=== PATIENT | female | born 1995 | race Caucasian/White ===

== ENCOUNTER 2023-04-09 16:03 | Outpatient (OUT) | payer OTHER, SELFPAY ==
[2023-04-09 17:27] LABS: HCG Quantitative <1 mIU/mL
== END 2023-04-09 16:04 | disposition home or self-care (01) ==
PROVIDERS: Visit Provider Obstetrics & Gynecology
DX: N92.6 Irregular menstruation, unspecified (principal)
CPT/HCPCS: 36415; 84702

== ENCOUNTER 2023-04-11 15:44 | Outpatient (OUT) | payer OTHER, SELFPAY ==
[2023-04-11 16:43] LABS: HCG Quantitative <1 mIU/mL
== END 2023-04-11 15:45 | disposition home or self-care (01) ==
LOC: LAB 15:45
PROVIDERS: Visit Provider Obstetrics & Gynecology
DX: N92.6 Irregular menstruation, unspecified (principal)
CPT/HCPCS: 36415; 84702

== ENCOUNTER 2023-06-22 15:40 | Outpatient (OUT) | payer OTHER, SELFPAY ==
[2023-06-22 16:36] LABS: HCG Quantitative 10 mIU/mL
== END 2023-06-22 15:41 | disposition home or self-care (01) ==
LOC: LAB 15:43
PROVIDERS: Visit Provider Obstetrics & Gynecology
DX: N92.6 Irregular menstruation, unspecified (principal)
CPT/HCPCS: 36415; 84702

== ENCOUNTER 2023-06-25 15:40 | Outpatient (OUT) | payer OTHER, SELFPAY ==
[2023-06-25 16:51] LABS: HCG Quantitative 37 mIU/mL
== END 2023-06-25 15:41 | disposition home or self-care (01) ==
PROVIDERS: Visit Provider Obstetrics & Gynecology
DX: N92.6 Irregular menstruation, unspecified (principal)
CPT/HCPCS: 36415; 84702

== ENCOUNTER 2023-06-27 14:55 | Outpatient (OUT) | payer OTHER, SELFPAY ==
[2023-06-27 15:33] LABS: HCG Quantitative 63 mIU/mL
== END 2023-06-27 14:56 | disposition home or self-care (01) ==
PROVIDERS: Visit Provider Obstetrics & Gynecology
DX: N92.6 Irregular menstruation, unspecified (principal)
CPT/HCPCS: 36415; 84702

== ENCOUNTER 2023-06-29 10:36 | Outpatient (OUT) | payer OTHER, SELFPAY ==
[2023-06-29 11:48] LABS: HCG Quantitative 136 mIU/mL
== END 2023-06-29 10:37 | disposition home or self-care (01) ==
LOC: LAB 10:38
PROVIDERS: Visit Provider Obstetrics & Gynecology
DX: N92.6 Irregular menstruation, unspecified (principal)
CPT/HCPCS: 36415; 84702

== ENCOUNTER 2023-07-14 14:42 | Emergency (ER) | payer OTHER, SELFPAY ==
[2023-07-14 14:48] VITALS: BP 152/87; PULSE 90; RESP 18; TEMP 36.8; O2SAT 98; BMI 46.8
--- NOTE | 2023-07-14 15:02 | US_ITS ---
The [address] [address] Patient Name: KAREEN IVAN MRN: [id number] date: 1995 Sex: F Assigned Patient Location: ER Current Patient Location: Accession/Order Number: [id number] Exam Date: 07/14/2023 15:30 Report Date: 07/14/2023 16:50 At the request of: ARTURO HERRERA Procedure: US OB transvaginal PROCEDURE: US OB transvaginal, 07/14/2023 3:30 PM EST CLINICAL INDICATIONS: Encounter for first trimester , vaginal bleeding for 2 weeks 2 para 1 LMP 05/27/2023 Expected gestational age: 6 weeks 6 days Expected KASSIDY: 03/02/2024 COMPARISON: None TECHNIQUE: Transvaginal first trimester obstetric sonogram, grayscale color and spectral evaluation. FINDINGS: Uterus: 0.2 x 0.3 x 0.3 cm anechoic region is identified within the lower uterine segment no yolk sac and embryonic pole or cardiac activity could be documented. Endotracheal echo complex 0.9 cm. No focal uterine abnormality demonstrated. Maternal right ovary: 7.7 x 4.8 x 4.8 cm, volume 93 mL. Anechoic cyst measures 4.5 x 4.6 x 4.8 cm. Complex 2.3 x 2.9 x 3.1 cm right adnexal cystic mass seen with low level echoes, mild increased reticular pattern. Maternal left ovary: 3.2 x 3.2 x 2.8 cm, volume 10 mL. 1.7 cm anechoic cyst seen. DUPLEX PELVIC VASCULATURE: There is intact flow within the right ovary by color-flow assessment. Arterial spectral tracing is identified from within. Left adnexa vascularity not assessed. US/US OB transvaginal IMPRESSION: 1. uncertain location. Convincing intrauterine or extrauterine is not documented. Differential considerations include too early to confirm by sonography, complete spontaneous , ectopic . Correlation with serial quantitative beta-hCG and follow-up sonography recommended. 2. There is a nonspecific 0.3 cm anechoic finding within the lower uterine segment. Nabothian paracervical cyst less likely early low position gestational sac could both present this pattern. Attention on follow-up recommended in this regard. 3. 4.8 cm anechoic maternal right ovarian cyst. Benign cyst favored. 4. Complex 3.1 cm maternal right adnexal mass. Subacute hemorrhagic cyst, endometrioma, complex corpus luteal cyst could all present this pattern. Attention on follow-up recommended in this regard. 5. No sonographic sign of maternal right adnexal torsion. Left ovary vascularity is not assessed. Electronically authenticated by: JAMES DOBBS Date: 07/14/2023 16:50
--- NOTE | 2023-07-14 15:03 | ED_ITS ---
HPI - Female Genitourinary General Chief complaint: Vaginal Bleeding Stated complaint: PREGENT UNDER 20 WEEKS Time Seen by Provider: 07/14/23 15:01 Source: patient Mode of arrival: walk-in Limitations: no limitations History of Present Illness HPI Narrative: patient is a 27-year-old female who presents to the emergency department at approximate seven weeks of . Last menstrual period was May 23. She states for two weeks she has had spotting and mild abdominal cramping. She states the last day, her symptoms have gotten worse. She is not passing clots. She has had no fevers, chills, nausea, vomiting. No urinary symptoms. She denies any issues with her previous . She had an outpatient quantitative hCG level drawn on 06/29. She has not had any ultrasound imaging. She reports cramp ing throughout the pelvis. Related Data Previous Rx's Medication Instructions Recorded naproxen 500 mg tablet 500 mg PO Q12H PRN pain #10 tabs 07/14/23 Allergies Allergy/AdvReac Type Severity Reaction Status Date / Time No Known Drug Allergies Allergy Verified 07/14/23 14:53 Review of Systems ROS Constitutional Denies: fever or chills Cardiovascular Denies: chest pain Respiratory Denies: shortness of breath or cough Gastrointestinal Reports: abdominal pain; Denies: nausea, vomiting or diarrhea Genitourinary Denies: painful urination Musculoskeletal Denies: back pain Integumentary/Breast Denies: rash Neurological Denies: headache Exam Narrative Exam Narrative: Gen.: Awake, alert, in no distress Head: Normocephalic, atraumatic ENT: Moist mucous membranes Respiratory: No respiratory distress Gastrointestinal: Abdomen is soft, obese, nontender to palpation. No pain out of proportion on exam Extremities: Moves extremities equally Psych: Normal mood and affect Neuro: No focal neuro deficit Skin: Warm, dry, intact Constitutional Vital Signs, click to edit/add: Last Vital Signs Temp 98.2 F 07/14/23 14:48 Pulse 83 07/14/23 16:09 Resp 18 07/14/23 16:09 BP 142/76 H 07/14/23 16:09 Pulse Ox 100 07/14/23 16:09 O2 Del Method Room Air 07/14/23 14:48 Course Vital Signs Vital signs: Vital Signs Temperature 98.2 F 07/14/23 14:48 Pulse Rate 90 07/14/23 14:48 Respiratory Rate 18 07/14/23 14:48 Blood Pressure 152/87 H 07/14/23 14:48 Pulse Oximetry 98 07/14/23 14:48 Oxygen Delivery Method Room Air 07/14/23 14:48 Temperature 98.2 F 07/14/23 14:48 Pulse Rate 83 07/14/23 16:09 Respiratory Rate 18 07/14/23 16:09 Blood Pressure 142/76 H 07/14/23 16:09 Pulse Oximetry 100 07/14/23 16:09 Oxygen Delivery Method Room Air 07/14/23 14:48 MDM - Female Genitourinary MDM Narrative Medical decision making narrative: patient with a positive blood type, quantitative hCG level has decreased from 136 on 06/29/23 to 116 today. Urine specimen is contaminated and we will wait for culture. Ultrasound shows a small gestational sac in the lower uterus, there is a large 4.8 cm ovarian cyst in the right ovary with good blood flow to the ovary. No evidence of torsion or ectopic at this time. patient was counseled that her quantitative hCG levels are concerning for miscarriage and she should follow closely with her BIG MACHINE CONSULTANT. Return to the Emergency Room if symptoms change or worsen. NSAIDs given for comfort in light of miscarriage. Medical Records Attestation: I reviewed the patient's medical records. Lab Data Attestation: I reviewed the patient's lab results. Labs: Lab Results 07/14/23 07/14/23 Range/Units 15:10 15:15 WBC 13.3 H (4.0-11.0) 10^3/uL RBC 4.61 (4.20-5.40) 10^6/uL Hgb 12.6 (12.0-16.0) g/dL Hct 39.7 (36.0-48.0) % MCV 86.1 (81.0-99.0) fL MCH 27.3 (26.7-34.0) pg MCHC 31.7 (29.9-35.2) g/dL RDW 14.5 (11.0-15.0) % Plt Count 352 (150-450) 10^3/uL MPV 9.1 L (9.5-13.5) fL Neut % (Auto) 73.2 (43.0-75.0) % Lymph % (Auto) 19.3 L (20.5-60.0) % [place] % (Auto) 5.8 (1.7-12.0) % Eos % (Auto) 1.0 (0.9-7.0) % Baso % (Auto) 0.3 (0.2-2.0) % Neut # (Auto) 9.7 H (1.4-6.5) 10^3/uL Lymph # (Auto) 2.6 (1.2-3.8) 10^3/uL [place] # (Auto) 0.8 (0.3-0.8) 10^3/uL Eos # (Auto) 0.1 (0.0-0.7) 10^3/uL Baso # (Auto) 0.0 (0.0-0.1) 10^3/uL Abs Immat Gran (auto) 0.05 H (0.00-0.03) 10^3/uL Imm/Tot Granulo (auto) 0.4 (0.0-0.5) % HCG, Quant 116 mIU/mL Urine Color Brown A (YELLOW) Urine Clarity Clear (CLEAR) Urine pH 5.0 (5.0-9.0) Ur Specific [place] >=1.030 A (1.005-1.025) Urine Protein 100 A (NEG/TRACE) mg/dL Urine Glucose (UA) Negative (NEGATIVE) mg/dL Urine Ketones Trace A (NEGATIVE) mg/dL Urine Occult Blood Large A (NEGATIVE) Urine Nitrite Negative (NEGATIVE) Urine Bilirubin Small A (NEGATIVE) Urine Urobilinogen 1.0 (0.2-1.0) EU/dL Ur Leukocyte Esterase Negative (NEGATIVE) Urine RBC 75-100 A (0-2) #/HPF Urine WBC 2-5 A (NONE SEEN) #/HPF Ur Squamous Epith Cells Few A (NONE/RARE) #/LPF Urine Crystals None seen (None Seen) #/HPF Urine Bacteria Small A (NONE SEEN) #/HPF Urine Casts None seen (NONE SEEN) #/LPF Urine Mucus None seen (NONE SEEN) Ur Culture Indicated? Yes Blood Type A Positive Imaging Data US - abdomen: Attestation: I have reviewed the pertinent imaging results. Discharge Plan Discharge Chief Complaint: Vaginal Bleeding Clinical Impression: Miscarriage, Vaginal bleeding Patient Disposition: Home, Self-Care Time of Disposition Decision: 16:25 Condition: Good Prescriptions / Home Meds: New naproxen 500 mg tablet 500 mg PO Q12H PRN (Reason: pain) Qty: 10 0RF Instructions: Miscarriage (ED) Stand Alone Forms: Portal Instructions Referrals: JIMMY CLIFFORD [Primary Care Provider] - 1 week Marty Payan DO [Physician] - As soon as possible Discharge Date/Time: 07/14/23 16:29
[2023-07-14 15:25] LABS: Basophils Percent Auto 0.3 % (0.2-2.0); Eosinophils Absolute Auto 0.1 10^3/uL (0.0-0.7); Hematocrit 39.7 % (36.0-48.0); Hemoglobin 12.6 g/dL (12.0-16.0); Immature Granulocytes Abs Auto 0.05 10^3/uL (0.00-0.03); Immature Granulocytes Pct Auto 0.4 % (0.0-0.5); Lymphocytes Absolute Auto 2.6 10^3/uL (1.2-3.8); Lymphocytes Percent Auto 19.3 % (20.5-60.0); Mean Corpuscular HGB Conc 31.7 g/dL (29.9-35.2); Mean Corpuscular Hemoglobin 27.3 pg (26.7-34.0); Mean Corpuscular Volume 86.1 fL (81.0-99.0); Mean Platelet Volume 9.1 fL (9.5-13.5); Monocytes Absolute Auto 0.8 10^3/uL (0.3-0.8); Monocytes Percent Auto 5.8 % (1.7-12.0); Neutrophils Absolute Auto 9.7 10^3/uL (1.4-6.5); Neutrophils Percent Auto 73.2 % (43.0-75.0); Platelet Count 352 10^3/uL (150-450); Red Blood Count 4.61 10^6/uL (4.20-5.40); Red Cell Distribution Width 14.5 % (11.0-15.0); White Blood Count 13.3 10^3/uL (4.0-11.0)
[2023-07-14 15:26] LABS: Bilirubin Urine SMALL (NEGATIVE); Blood Urine LARGE (NEGATIVE); Clarity Urine CLEAR (CLEAR); Glucose Urine UA NEGATIVE (NEGATIVE); Ketones Urine TRACE mg/dL (NEGATIVE); Leukocyte Esterase Urine NEGATIVE (NEGATIVE); Nitrite Urine NEGATIVE (NEGATIVE); Protein Urine 100 mg/dL (NEG/TRACE); Specific Gravity Urine >=1.030 (1.005-1.025)
[2023-07-14 15:27] LABS: Color Urine BROWN (YELLOW); Urine Microscopic Indicated YES
[2023-07-14 15:34] LABS: Bacteria Urine SMALL #/HPF (NONE SEEN); Crystals Seen? None Seen #/HPF (None Seen); Mucus Urine NONE SEEN (NONE SEEN); RBC Urine 75-100 #/HPF (0-2); Squamous Epithelial Cell Urine FEW #/LPF (NONE/RARE)
[2023-07-14 15:35] LABS: Cast Seen? NONE SEEN #/LPF (NONE SEEN); Urine Culture Indicated YES
[2023-07-14 15:42] LABS: HCG Quantitative 116 mIU/mL
[2023-07-14 16:09] VITALS: BP 142/76; PULSE 83; RESP 18; O2SAT 100
== END 2023-07-14 16:29 | disposition home or self-care (01) ==
PROVIDERS: Physician Assistant; Emergency Provider Emergency Medicine
DX: O03.9 Complete or unspecified spontaneous abortion without complication (principal)
CPT/HCPCS: 36415; 76817; 81001; 84702; 85025; 86900; 86901; 87086; 99284

== ENCOUNTER 2023-07-17 14:10 | Outpatient (OUT) | payer OTHER, SELFPAY ==
[2023-07-17 14:58] LABS: HCG Quantitative 106 mIU/mL
== END 2023-07-17 14:11 | disposition home or self-care (01) ==
LOC: LAB 14:12
PROVIDERS: Visit Provider Obstetrics & Gynecology
DX: N93.9 Abnormal uterine and vaginal bleeding, unspecified (principal)
CPT/HCPCS: 36415; 84702

== ENCOUNTER 2023-07-19 13:19 | Outpatient (OUT) | payer OTHER, SELFPAY ==
[2023-07-19 14:51] LABS: HCG Quantitative 146 mIU/mL
== END 2023-07-19 13:20 | disposition home or self-care (01) ==
LOC: US 13:20
PROVIDERS: Visit Provider Obstetrics & Gynecology
DX: N93.9 Abnormal uterine and vaginal bleeding, unspecified (principal); N92.6 Irregular menstruation, unspecified
CPT/HCPCS: 36415; 84702

== ENCOUNTER 2023-07-25 08:04 | Outpatient (OUT) | payer OTHER, SELFPAY ==
[2023-07-25 09:13] LABS: HCG Quantitative 73 mIU/mL
== END 2023-07-25 08:05 | disposition home or self-care (01) ==
LOC: LAB 08:05
PROVIDERS: Visit Provider Obstetrics & Gynecology
DX: N93.9 Abnormal uterine and vaginal bleeding, unspecified (principal)
CPT/HCPCS: 36415; 84702

== ENCOUNTER 2023-07-30 07:36 | Outpatient (OUT) | payer OTHER, SELFPAY ==
[2023-07-30 08:13] LABS: HCG Quantitative 45 mIU/mL
== END 2023-07-30 07:37 | disposition home or self-care (01) ==
LOC: LAB 07:37
PROVIDERS: Visit Provider Obstetrics & Gynecology
DX: N93.9 Abnormal uterine and vaginal bleeding, unspecified (principal)
CPT/HCPCS: 36415; 84702

== ENCOUNTER 2023-08-15 12:34 | Outpatient (OUT) | payer OTHER, SELFPAY ==
[2023-08-15 13:44] LABS: Basophils Absolute Auto 0.1 10^3/uL (0.0-0.1); Basophils Percent Auto 0.6 % (0.2-2.0); Eosinophils Absolute Auto 0.1 10^3/uL (0.0-0.7); Eosinophils Percent Auto 1.6 % (0.9-7.0); Hematocrit 41.8 % (36.0-48.0); Hemoglobin 13.2 g/dL (12.0-16.0); Immature Granulocytes Abs Auto 0.04 10^3/uL (0.00-0.03); Immature Granulocytes Pct Auto 0.5 % (0.0-0.5); Lymphocytes Absolute Auto 2.2 10^3/uL (1.2-3.8); Lymphocytes Percent Auto 25.7 % (20.5-60.0); Mean Corpuscular HGB Conc 31.6 g/dL (29.9-35.2); Mean Corpuscular Hemoglobin 27.1 pg (26.7-34.0); Mean Corpuscular Volume 85.8 fL (81.0-99.0); Mean Platelet Volume 9.2 fL (9.5-13.5); Monocytes Absolute Auto 0.8 10^3/uL (0.3-0.8); Monocytes Percent Auto 9.6 % (1.7-12.0); Neutrophils Absolute Auto 5.4 10^3/uL (1.4-6.5); Platelet Count 442 10^3/uL (150-450); Red Blood Count 4.87 10^6/uL (4.20-5.40); Red Cell Distribution Width 14.3 % (11.0-15.0); White Blood Count 8.6 10^3/uL (4.0-11.0)
[2023-08-15 14:27] LABS: Estimated Average Glucose 114 mg/dL; Glycohemoglobin A1C 5.6 % (4.5-6.2)
[2023-08-15 14:33] LABS: Free T4 1.08 ng/dL (0.76-1.46)
[2023-08-15 14:58] LABS: HCG Quantitative 6 mIU/mL; Thyroid Stimulating Hormone 0.763 uIU/mL (0.358-3.740)
== END 2023-08-15 12:35 | disposition home or self-care (01) ==
LOC: LAB 12:37
PROVIDERS: Visit Provider Obstetrics & Gynecology
DX: O03.9 Complete or unspecified spontaneous abortion without complication (principal); Z51.89 Encounter for other specified aftercare; N93.9 Abnormal uterine and vaginal bleeding, unspecified
CPT/HCPCS: 36415; 83036; 84439; 84443; 84702; 85025

== ENCOUNTER 2024-01-07 10:51 | Outpatient (RCR) | payer BC, SELFPAY ==
--- OUTSIDE RECORDS SUMMARY | 2024-01-07 11:18 | XMS_ITS | CCD ---
Author Organization [facility] Care Team Providers Care Tool Planner Name Role Phone DR CARRIE ARREDONDO Primary Care Unavailable ANGÉLICA NARAYANAN Attending Unavailable ANGÉLICA NARAYANAN Consulting Unavailable ANGÉLICA NARAYANAN Admitting Unavailable MARQUIS HENSON Consulting Unavailable ARNULFO, DR BUTLER Consulting Unavailable DR CARRIE ARREDONDO Primary Care Unavailable DR CARRIE ARREDONDO Admitting Unavailable DR CARRIE ARREDONDO Attending Unavailable CARRIE ARREDONDO Attending Unavailable CARRIE ARREDONDO Attending Unavailable Problems Active Problems Problem Classification Problem Date Documented Da te Episodic/Chronic E Codes: Fall (1 source) Fall (on) (from) unspecified stairs and steps, initial encounter; Translations: [FALL ON FROM UNS STAIRS STEPS INIT] Onset: 03-13-2022 Episodic Other connective tissue disease (3 sources) Pain in left foot; Translations: [PAIN IN LEFT FOOT] Onset: 03-11-2022 Episodic Sprains and strains (1 source) Sprain of unspecified ligament of left ankle, initial encounter; Translations: [SPRAIN UNS LIGAMENT LT ANKLE INIT] Onset: 03-13-2022 Episodic Past or Other Problems Problem Classification Problem Date Documented Da te Episodic/Chronic Other screening for suspected conditions (not mental disorders or infectious disease) (4 sources) Encounter for screening for malignant neoplasm of cervix; Translations: [ENC SCREENING MALIG NEOPLASM CERV] Onset: 10-18-2021 Episodic Results Test Name Value Interpretation Reference Range Facil ity Coding Summary.on 04-07-2022 Coding Summary. CD:[id number] Gh0 bWw+PGhlYWQ+FH8ZYWDtW41 smVLbrN6PU5pMVY0ZGMEPEI RLOC1UVK6reSI4CGpqQ3Txh iAv KeinjRQeVF20BYh1AIN5nWf hABwzxB0biEAkV5z1QsQrRM 81hV30NPjtBEBgMwU0JuPgm jsgbWFy R3ntSfOyoYIoXnq+PHRhYmx lIHdpZHRoPScxMDAlJyBzdH qiNZ6nRl2fQUVrRNRvgHtpg HNlOiBj r3tuNCIcUFnpWL0kwDmbB9U wmDS8TWWif5o1Cs99pIY+PH XkEZY2vFgwYAxef290EjQrn 5hmZCR5 xHMaSYbeBAV9D33qi7L1CRX gURSaJTE9lYF9rY7idHlgyg ggL5WwfVJdJwF2BEY3nQErv X1hvZlu erylqL0cRcm+C80LBX6FUAC NHG3YTtc1R9HyZqydrPL+PC 15SSOkNS13hMHipBMfz1qjx Ya8FePg KKFrIPN7gNblLFgfe3ObTLF pZ41ybRSjs4Z5NAYieGfkyJ KpEuAweHZ2sR4zNJdkfqmhf 2hvdzsn Bxvng3eprm23mQ27W26mJHm qKRIsVYH7WNBqZDAtzTcesi 9isV2lDn7+DIdho6lit7ksw Pn8ZoRb UFHohuMxcBiiAQM9u4OqHa7 8V9UodCngm5HkHeo4nt06cS Guh2M2rBL2KKngVDFiaT0iL WxlZnQ6 TKFsVaCawM46zJAcOWweSq9 fpOtskKmnIR0nVIDimlvfJW UpzR4wZVBmbQQjbPhdRR2bV TBpbjtm f129UaTbHGM3BIGqkUHcP0S isE1bUhYkXDCuYOLpE6CiuJ XqDUskD443WPlmFdP6YEQiq eKzK3Lf PNNxwEdgAvY8k1R6Ca1Wi4L zzzyvJUQ8HQdkDZJ8UlN7Nc NxKeL9O5ZyYpy2BZBrpGzkT O7tR7Kn JBIkyvmfiynilEU4QTNjEJN fsK82gUQiAEulSb3qn4R0z6 11ELKbAJKdhX94Yr0stXckA TBwdCBU yN1dokkbi4mlqtuhAqPqDIE iBVs7UIs1KTAniNdeKvOmLJ J4OeJ0BOV1bIXvpV0noVcta gxqaX4n Oyc+Z03coO1nUOM2JHM3ypi oBWOxywGuSQ35IC96R6OfRa wvdGFibGU+PGRpdiBzdHlsZ S1hNxUf e1srl0FnTAmhQ5YpFKLiIQz cBut0GGRuXEA4fNY4yT1yMM ZeXEgvc3S2vLK6X1VxvbCbj c9un6sm EUZePOyzG46cyKTlb3U7KCG paFS7SGGqaKooYaNjhD63Je c+HWGrtPtnh7AaOqejf1slw 2yjrFb7 BuAiKRDhfiBcgZekXZF4a3H dVk61N30sXAswKBMzXDXfAQ BlNTGvjKhraw2thH2iDs9+P GNvbCB3 jVV5kC2tDTDyWgU9WJeoV67 3RlHmtYSzRalcz2dyf0uetB t2CxDxXEEgwzOsvOpcWQO2m 3FhWk29 B88rGObhXBCfXBQtYZQfECB fgIdccu2kqY2fCt2+PC9jb2 jkpk25rN85aWK+GVAzKHW0k WxlPSdw AWDnpB1yBIgePvX3WKGgXdF qaL14uCHoCPvqMb4xdVaodL bmQW5eJNEkqrcgs454FaXnc 2xkIDEw wHCbFOclNSQ9P37dh9I5QLH rGKYlSHJ1nWD5dA8gsNgvxr ogbGVmdDsgdmVydGljYWwtY ZexB422 IHRvcDsnPlBhdGllbnQgTmF yYQk1H2LbPlo9WHGrbAydKE 7hvXOnUJjwYa2xjDqkzKxwU M9rWQDd mnvlq185EcKrf0kqIKHqnBG bRNytUJI4T72ka0X1VBSkXI NnXLJ0vKS1wD1grJpvaavyg GVmdDsg itEqcPegBFwuGJwxG128RCW mnAjoQcSystGqLBQnpJD1TL 08MS51qMNzs2O8xLH3X0CyR GRpbmct ztofpAM4WXVvSZCwsY22Ms6 gzMozXl6tZWYcHUO4VCJegD SeQ0VpaM7kWzRfBKZcAOGbZ 3RleHQt PTeiR182CLsmKnU6KNVqjuY wR4SySKYqhWszAmN3p0C6Ue 6YW2F8WY78KE84gQPks6N7d VT5M0Xc IZZfqonqstxjzZY9NRVrDAO deQ78Su3bsBqgNq8wCLSdEP P8ZBPehXGxR7KefJ5rDkCzY DAwMDAw J3CwvBYmHMvmK006DGgjLsF 1BCQdtqLwK4IySTKcoKonLw Z6h5Q8Oz9DOGa4JX65JA56v TEpd0R3 lSD3L1SaKNVgzpoxzpkjeDQ 5LOViXYUuzE88Eh5tgXmnUp 6yOJLdNYL5ADGwrHXuJ8Vki B0zIaYc EOBoMZYbA6NiiICqRZgeO47 4AUpyNqK1QGBrtjJiG7ZwHE QwdStqBvR4r3F2Kx2UNKRpL D90HRN5 zXP8EP53EW61K9WjVqyyzCI ibGU+PHRhYmxlIHdpZHRoPS ocMELvOjYawApyNJ2tWj6wT GVyLWNv tEomyHIdLhVfm5acAQToJMp wRK4apZhuO5HvfEI8KYQgq4 n7Dd86B25iD3EwpED+PGNvb SX3oMI8 tT4dXsIdBrB7XUveJ265EzY yuFWwEogau9fki2upbPx4Qk J9FWSoxyZssVhbETB9l5OgH o78A28w IHdpZHRoPSIxNSUiIHZhbGl qjb6riO4iId2+WOYduRU2tT A6bG8mAzEePkT7EWwsQ622J nRvcCIv Rcsuu8ojs8shxRb9UvAxULH pblJetElmQZG6a6TfMi97G0 OiuGyik2KeBnc2ys86bNNnu 7C4oMR5 C0TzXXSveuenbZUcmDkpVM5 iDJYxnpehKNKemZ4zGMVdD0 o6EoCcVqR4LCetD4SclcT2A DEwcHQg IHfdTWH3Y78az7F4SSIkCWP cWHK5bNY4rU4gaErlasqgsB VmdDsgdmVydGljYWwtYWxpZ 246IHRv wCouPGHntY4tTGPggFAphWe nZO5qBTJmpmziQyTDBLEUES YZHGuOZRLCLNCZJCS2V8IsT jv8OIKm pWckYT6dcKRrTEdmXp7zlEk kzNebRN6aXWOqqkevQRBbhU 5hGHKmiTHvsVjgPV4kSBMzj qvvj197 DfEaNZA1QGIogYHqQ3GumU0 oMgAsXBUtWNEkB0PcaMUqLD yvN600WWgcWqQ6MJUalaKeA 2FsLWFs lIvgJhA1b3X7Hs2xWW7gGD5 uWUq4FI17RJ69bLFyx2N0gE G7U4DlLGRuhlfnxctxqFI3N DAuMDUw cH35mIIyNRpvSo9oj9I2q07 2NAJkGAJtfX68Ru7tzLjsPS OonWCOrO1lvjfyf9wduhvpG zAwMDAw KFj2VVz0WSZifKtjOjLfJJF 4YlW0KGH1qHQdjC3xzMmnkw zvjX6wPwy+YtGdTJYxtgM7B 3HzUng0 RCVrxEldKF0siHKkHFkwFk8 ptZbenAngAT7tEFEenbojMP GuuK9xMQKobABvrGjvZS5hC TBpbjtm y193CrGgECH8BQEegWUjB0T vvF9tGcAkENStOCCoM9NlgF RsYNbhL031SYumLhO6FXTba tCyD9Wq GMUymDooIsE8l9Z6Tj4OKY5 mzRL9C5HeTwg1NHSycRcvYS 2bbOPjNJjfNo5rjZishWutZ T3fXEZf vonwJCLogT4mYZNncDRmqSp kGP6zGADsdvydg632OkFhHD A8SPOfdCJgJ4ZdnC8iPrXmW DAwMDAw S0PpjKIjQNnqQ047AUzsTuC 6WWCynfXvC0ZzEFCsuEhbGh M6h5R4Ba8NqLHsTLJmKT67X Q47DO49 C3KmJahrwURnhAF+PHRhYmx lIHdpZHRoPScxMDAlJyBzdH gpGD5tPr6mIPHuQIKopRrrc HNlOiBj v6ymWKSnMCziPH9jhWxcB1F iyAJ5HFNrb5o0Mk58N23tS0 JvdXA+IUUzgEW7nBX2rA2uF zAlIiB2 FFmdM450TeIewRAoWnojo0f uc2rqsId1NsGlTLRtyyBybW ouNXA1w7RyIh40C10oKVbrE HRoPSIy ARTnNELekHhgop8ypM5eOv2 +KXTeoCQ2cBV8fO6yKzSbPn D1QNgsF981HpJbqGVvSflmL 26pD5Eq dXA+BWOpWho7DUCcaTqtGQ0 lqREfWNreWj3nXIU4FtWnVt RhHZnvL9YwQBJaydhrhuwhj KQ4HGZi EHMzsF93Vu5jlZykVe3vIIS sHZJ0FOTcoXPgT8HdcK5mBn UdCKArVNDyW8CycCQzGHdnN 246IGxl LwG0VVZkfqMmM1BxZUAxfZi iCrS7c7X5Uf5SeBnydDTvCW 3rBcUaLMf8Z5WuPnp3NXYpi RqgJY5z hQXeVFuxTo8qhNhnwKptBX0 pIHXrztlqy541DaCzs6zhQN TwbBEqCEoeSOI6M76hi6B1L CMwMDAw EOB1kDL4wB0vtChljngokXR mdDsgdmVydGljYWwtYWxpZ2 82WRWobTjqRrOBKzf6U3EfP gz6AFDe nWwqWC1fqLTxKOqiAh4jgGz lvPqpFY3gDJQqhbfun118Gf Txq2inTLNqsICcKQpvNLJ2A 60tr2S3 VLTnFXNjXHJ8rTA1sS6ztKp nbjogbGVmdDsgdmVydGljYW ntZPacQ412FZRlvGxgGj9LA jv7V6Ob Nza9CBOjpZekXT3nkNWpYRo xFk8waAoabVhfJJ7sGPWwpd moz329ImDtu9ylASMshPYxC GltZXM7 M24hb3Q7JPBsMLHyLHQ1tSV 3gK9rsVumqnecmCMsgJzlsh AufZixZIubSTiyO465TJFrr DsnPlBh eWVyOjwvdGQ+ME68lo23V5C sUlyuKfg1LQBwMMB5yQR4zR 9vNDZeRQpzi1Y6sQA0T0Zua qEdmh6m b2xs (more content not included)... Normal [facility] XR Ankle 3+ Views Lefton XR Ankle 3+ Views Left Exam Date/Time: 04/03/2022 17:20 EDT Reason for Exam: pain Report IMPRESSION: NEGATIVE LEFT ANKLE. CLINICAL HISTORY: pain. COMMENT: 4 views. The bones of the left ankle appear normal without evidence of fracture or dislocation. FINAL REPORT Dictated: 04/04/2022 8:07 am Federico Howell M.D. Signed (Electronic Signature): 04/04/2022 8:07 am Signed by: Federico Howell M.D. Transcribed by: JENN Technologist: [facility] Consent for Treatmenton Consent for Treatment [id number] D:127 Normal [facility] Physician Orderon 04-03-2022 Physician Order [id number] CD:127 Normal [facility] XR ANKLE LT MIN 3 Von 2021 XR ANKLE LT MIN 3 V EXAM: XR ANKLE LT MIN 3 V, XR FOOT LT MIN 3 VIEWS DATE: 03/11/2022 3:17 PM EDT INDICATION: Pain COMPARISON: None. TECHNIQUE: 3 views left foot and 3 views left ankle FINDINGS: No acute fracture. Normal osseous alignment. Ankle mortise is symmetric. No osteochondral lesion of the talar dome. Small posterior calcaneal enthesophyte. Soft tissue swelling of the ankle. IMPRESSION: 1. No acute osseous abnormality of the left foot or ankle. 2. Soft tissue swelling of the ankle. Electronically authenticated by: MARQUIS HENSON Date: 2022-03-11 16:04 [facility] PAP ACOG PANEL 2: 21 to 29on 10-24-2021 . . [facility] Comment on above: Performed By: #### [id number] #### [facility] [address] [place] [address] Dr. Aura Griffiths Age Gdln ACOG Testing - [facility] Comment on above: Performed By: #### [id number] #### [facility] [address] [place] [address] Dr. Aura Griffiths DIAGNOSIS: Comment [facility] Comment on above: Result Comment: NEGA TIVE FOR INTRAEPITHELIAL LESION OR MALIGNANCY. Performed By: #### [id number] #### [facility] [address] [place] [address] Dr. Aura Griffiths Methodology: Comment [facility] Comment on above: Result Comment: This liquid based ThinPrep(R) pap test was screened with the use of an image guided system. Performed By: #### [id number] #### [facility] [address] [place] [address] Dr. Aura Griffiths Note: Comment [facility] Comment on above: Result Comment: The Pap smear is a screening test designed to aid in the detection of premalignant and malignant conditions of the uterine cervix. It is not a diagnostic procedure and should not be used as the sole means of detecting cervical cancer. Both false-positive and false-negative reports do occur. . Performed By: #### [id number] #### [facility] [address] [place] [address] Dr. Aura Griffiths Performed by: Comment Normal [facility] Comment on above: Result Comment: Radha Trevino, Nut Grader (ASCP) Performed By: #### [id number] #### [facility] [address] [place] [address] Dr. Aura Griffiths Reflex Criteria: Comment Normal [facility] Comment on above: Result Comment: The HPV DNA reflex criteria were not met with this specimen result therefore, no HPV testing was performed. . Performed By: #### [id number] #### [facility] [address] [place] [address] Dr. Aura Griffiths Specimen adequacy: Comment Normal [facility] Comment on above: Result Comment: Sati sfactory for evaluation. Endocervical and/or squamous metaplastic cells (endocervical component) are present. Performed By: #### [id number] #### [facility] [address] [place] [address] Dr. Aura Griffiths Encounters Encounter Date Encounter Type Care Provider Facility Start: 08-01-2023 End: 08-01-2023 ambulatory CARRIE ARREDONDO Not Available Start: 07-17-2023 End: 07-17-2023 ambulatory CARRIE ARREDONDO Not Available Start: 03-11-2022 End: 03-11-[address] CARRIE ARREDONDO Facility: Start: 10-18-2021 End: 10-18-[address] CARRIE ARREDONDO Facility:[facility] Payers Date Payer Category Payer Unknown [id number] [id number] [id number] 1995 Unknown [id number] [id number] [id number] 1995 Unknown [id number] 1997 Unknown [id number] 1957 Private Health Insurance [id number] 1957 Unknown [id number] Summary Purpose Family History No Family History Records FoundNo Family History Records FoundNo Family History Records Found Advance Directives No Advanced Directives Records FoundNo Advanced Directives Records FoundNo Advanced Directives Records Found Additional Source Comments INFORMATION SOURCE (unrecogn ized section and content) DATE CREATED AUTHOR 04/05/2022 Crystal Suarezevue [facility] DATE CREATED AUTHOR AUTHOR'S ORGANIZ ATION 04/08/2022 [facility] DATE CREATED AUTHOR AUTHOR'S ORGANIZ ATION 08/03/2023 [facility] EPIC FOR RECORDS PERTAINING TO PATIENTS WHO ARE OR HAVE BEEN ENROLLED IN A CHEMICAL DEPENDENCY/SUBSTANCEABUSE PROGRAM, SOME INFORMATION MAY BE OMITTED. This clinical summary was aggregated from multiple sources. Caution should be exercised in using it in the provision of clinical care. This summary normalizes information from multiple sources, and as a consequence, information in this document may materially change the coding, format and clinical context of patient data. In addition, data may be omitted in some cases. CLINICAL DECISIONS SHOULD BE BASED ON THE PRIMARY CLINICAL RECORDS. [employer] [email or web address] provides no warranty or guarantee of the accuracy or completeness of information in this document.
[2024-01-07 12:13] LABS: HCG Quantitative <1 mIU/mL
== END 2024-02-01 08:42 | disposition home or self-care (01) ==
LOC: LAB 10:51
PROVIDERS: Visit Provider Obstetrics & Gynecology
DX: N92.6 Irregular menstruation, unspecified (principal)
CPT/HCPCS: 36415; 84702

== ENCOUNTER 2024-04-07 21:04 | Outpatient (REF) | payer BC, SELFPAY ==
--- OUTSIDE RECORDS SUMMARY | 2024-04-07 21:08 | XMS_ITS | CCD ---
Author Organization [facility] Care Team Providers Care Channel Development Manager Name Role Phone DR CARRIE ARREDONDO Primary Care Unavailable ANGÉLICA NARAYANAN Attending Unavailable ANGÉLICA NARAYANAN Consulting Unavailable ANGÉLICA NARAYANAN Admitting Unavailable MARQUIS HENSON Consulting Unavailable DR CARRIE ARREDONDO Consulting Unavailable DR CARRIE ARREDONDO Primary Care [...] Facil ity Coding Summary.on 04-07-2022 Coding Summary. CD:[id number] Gh0 bWw+PGhlYWQ+AE4XYWXwC92 nqEQgmO1WU9zADR7IGRZZVP QXJE8DYG1atOY8BHynQ7Jat iAv XipycYKlDA67BOg3JYL7fYm nVVbagO0iwGBiX8l2PtBcMG 11rB51BUhzLCKgZlY7XtTvm jsgbWFy A6vpSmAhjVDmYmr+PHRhYmx lIHdpZHRoPScxMDAlJyBzdH fuIR4dDk5jWXHkNQEtqSlsg HNlOiBj o7ipRYKgLUybAA4uaErpZ2F nlJW0UXCyo8k1Pf39eUQ+PH WbDPU7tKftLCrit365XkPge 4rcGWU4 fYQvXYryPUC2Z22of4J8YWC jRFYuXXD0lQK4xZ0lvXzfmc ipW1RxyWVtCsH8DKJ9fUTtf A2gnMvq ltrddV5mPeq+M24ZRT9JLMN XDO7JXto9S4CbNvkmwGJ+PC 08PJVgJI60cEHleSZwu1vuf Xh0JkDo BGFoHXA6tAqvSNkko3MvPJT vR79fhTQer4L4EEVnwRatrE BxKoJjjQL6lQ3hNBqfgtlmv 2hvdzsn Xsieb5elay06cS25G72qATn tCWQvKZR9OQVwXAAsfLoqhr 5ccF8tQk2+XCvvr0ace2guk Ot7JqJh TFHibePsfZilEYF5q4AxHp4 4U1EqpRooj3KbDjw4pf55dY Ivy6O2lAI5IAnvUHAlnZ3bH WxlZnQ6 OCSuUeAhpG42iSTxZVfmKx8 jsJqllFmiSN0jXAVwjaxySB EheQ7rRLYmsGEfsUniJP3vI TBpbjtm v036BpMvQKD5FRNdwAXlH7Q niC5nGpAyBBNbBMDrL8SzlQ QkROhwZ385SHrzTqG5RTAou mAfK6Se IHXwsIpeCiT3d4Z2Vh0Gw1T latqbTAO3PUwlODW8AdE5Dn KdZnU7U0KtFkp2DGDiqPvmN Z3wQ1Ad PSBbqrorvksxcAT5LSMxLYV mvW07sIWvSGwsRc3nt9C8e7 17OEOrRKDacN57Uq9lrTwrK TBwdCBU iT5cdhryi5dpqulcOgQhBYM fHFg9TWn8VCBabMwkTsQqJG H5TtG4PXL2uINiwS2qySdbf scdtX4i Oyc+O04lwX9bPCM6XAG8wtp iYNGnglSaLZ12NB36P6NvIb wvdGFibGU+PGRpdiBzdHlsZ S1dMlGv l4bgd3PlIQsfU8NcGPDvTEr gIvd0MBOaFCK5dQK3dZ6dWV YgQAwps1P8yND2G0FmyoUlr f4jk4if WTSrMWawY67urAYcq6O7BPD qhKW5BFRorJylQqZoyR05Gb c+XGWlvDnvk6JbYqyhm9vtg 8upsVu4 CpDzRHAnubDxwTnpBHQ3s8W jRj64E76uEXwaQYCzQQGoCM WpPAUtjRzezj2nvH0hFi1+P GNvbCB3 nKO8iJ8nVDXbTiE0ZFfkR59 6SuTbbVLtQcyxd3wqe1wzmD b6GxQqETHleeAotFroMBK8y 6MtZf93 G12xZBciKFFgXWBsWFLgCYA wrNmdzy4ujL6uBa0+PC9jb2 btku03uT67iML+GUKsAGX7z WxlPSdw JTEnnQ0zKXffJlQ0FHXzIpM tjA33zPQoJYgrYz8zqVznlK jtIF8xFFFhsuhja537OkVqz 2xkIDEw oJWkAAvlHZR0Y27es3D9EKT gZUIrQCL9jNH8hX4rsNvqwl ogbGVmdDsgdmVydGljYWwtY FflP765 IHRvcDsnPlBhdGllbnQgTmF qNEs5F4HdJzp9CUQxkTsnDF 8nsPCmQQndPy5sqSgaeQtvE A7jEZPh pkgyc551UiCsr7ncZXZdoOS oZBfsTYA3W64sy4O2QVCdUE IxLMP5qOF4dV7qeSkiwrsdd GVmdDsg qfMnkYrcSEgpQDujU609KAW eqFtnXiGjynWwDMXvqDK2SV 13ED93wMDws0W7uHZ7M4MdY GRpbmct vgjntAM7MBCtYFMjbL37Kg0 zkIrwRn4tWYOsISJ4HKPhtR RnZ2CzkS8iTaSfZLHmNKDjL 3RleHQt ELneA515MBubYiF6YGRnxkJ dY8NrMXXnmZurVmR5n4M7Fs 3OZ2C0MI20WB98dTChp6O3a UF8C2Kn OZKjfwnyoczibMS5IVKuXVM wfM84Si5qpMsaJi3cJTHfFH L7BPDhxNJdM1CkyS9vCgFpN DAwMDAw I2HwwHNzODruU505QLpdOvT 1FYBmwlTtN1EnIUSgqDhcQj F4z7E8Id1GCVy5YK09YA44u MXen9K3 cXM0N7SjMMBsvkdnnnikkZA 7FNAyEDAtqK30Ax7hfRmoGy 9dXPUqBXH5OTFvgBZhD7Syx U5vSlKz PUXtLVDaJ8CbgZSjPXilB68 2EEznQhT0MSZiuuZgX0QnFL YjqGvxDdQ7b5P5Ap8JJASiE C30SZN1 mVO4RG83RR09I8RnLwtzfBF ibGU+PHRhYmxlIHdpZHRoPS zaYIWiXjGxoSrrRV1lJn8qX GVyLWNv pMjcrYEaBiQyc5vqRYPkCMa pGV1mhOciL9UavHN2FVEkx4 n7Dq06S90zV3VblMK+PGNvb TC9cLT3 yQ2jEnKgTcW8LFloK417CnH nrMUaBgfvb8qje0heiCe3Xx X1SHVyamIlkCllNFC4a2ShH b23U20c IHdpZHRoPSIxNSUiIHZhbGl hdp0jlM5wWm2+QCLewGQ8fA C7cE7uLnCsXwM9ZIabG150I nRvcCIv Uctnu8wyz6tkwZp2PrTbSWV lijWjlOlfFNQ3z5DsSz45W0 ZtlLpcv4HuEph4rz89hTDsu 3S5oKB2 U8AiHDEreeembPWswIbrQS8 nTLJvxeqqHNNtjJ4oWOUdO7 y2ErGdHxA5YKwnP4ZxmyG7F DEwcHQg KTmiQCK2G92um2Z1BZVoYXT vUQQ1rFM4fB8cwGfuevcxbL VmdDsgdmVydGljYWwtYWxpZ 246IHRv dAprKJSsfD1xJXWjxTLiuQq rEN7eXJQccmbpEnONTJBUSN VNAAyDWXFSMGPEPCQ3E8SmX qc3TUGl eBvxVJ3zeUKpPYdfSi1twBx smGelRH4wDQVjjziwGTUseQ 4eDNRcdFCxwNvfPJ1xHJSja wnuq126 EtUdQZB0KTMirUNqQ4QmhY8 rAeIvYUCaNIOkT2RyuBIvSA ufH274GCzaZgA6JPYvtgOoA 2FsLWFs rGgjZdN8z6T4Xw3qSW4rHY7 zYNc8OS10NZ30hRKfb6P5iE M5U7WaUVLdscnhpgbpzQB6Q DAuMDUw mA68zGCdMLpfKh3gx1F8n59 1WHYiRVTulN55Ww5tlOxpTF QbbCFMxV1fszviw2bnwigcZ zAwMDAw MCe9XNr9XLHrbPzmUzPlCBM 0TzA1DUP6tIGugZ9fhHzqqm fkeZ1eWxs+UcWuWQEhweJ0S 2UaGdc7 MAAymDjxVS2ydGGxSPqgAc2 owTbcoSfqBD2hTPXeabtgTR PstF3mOSOfgFYftMysUU7xC TBpbjtm e617DxIuIKA5AZRatUXlB0L gtM0nBiBnGFMtALCpJ5DysZ SkLNlbS632JNyxUeM1NODds tSkO4Id MTHrmPfxGeA3v1A9Fn0NIB4 whAG7W2RiHtt9CFSvqLtjKX 4alBJfPJzbBh9jlPcemAacQ B7dJCQo mtqgNMHieM5mJRXgeHLruAb rXS2fWOYxocbto788LiNoQV O4BZKedNHrE5SjjU0aUcPdH DAwMDAw V3ZibBPvIVodN799NDbzBpR 3DZSateJsG0OsOFPjuKyiTg N7o8V7Sk0SxUWgIWKrQT99W P40AN00 Z5OnJnkpmCUinWU+PHRhYmx lIHdpZHRoPScxMDAlJyBzdH vhWM4gEn4fDWBnPVAheYwtk HNlOiBj p2ixYUVvKEpuOF1wrLooL7Q bkTA2FFVfl2i3Kt96Y68hP8 JvdXA+TPGjbQC3kEA3xS7kN zAlIiB2 OFadA512LvFdwRJtFxbkj5x mo9jgoNi1TwDxYEBqwnNwhF mmMEZ9o9YhFa72N79fQXqdD HRoPSIy JCKcTUKfvFpjbd0atD5bLy3 +TISxjIX0oAY9kO3yZwNxNt D9YRbbJ721BpYjjICxQwmuC 29fV3Ao dXA+CSCpNru5GVSgdYpvDS1 tkZLhXGveYz1oDAH2OeVrOm WfBFlwR7AkSOYxpyswrbhso VG5VHQu UAWmlC88Sv8kyNjlRw7sXFP tDMM5EIAfcJFsN8CluI5nSr VrMIMjUAYpX8YloTYdDPstY 246IGxl KpT7XMIejmQjZ6UdLPKfySg sIrC8n8A1Ej0RpSyuhYMwEQ 8cDbRbSKl7O8TzDbb7HOFsf KnfOQ8r tINaGVfdPz0dnNekeDqgHO8 yERTdqevjw774NcZbr5sdCQ FqxQOuMLmbLLP1N62my3M8J CMwMDAw JCN0bFE4uW6aaYkrmnuhpZZ mdDsgdmVydGljYWwtYWxpZ2 33JWYkcUvtPpUGNqa6C3IpB jq5AZNr aYlkHO0yvHBcRKdxJt6dwSc fgHhoMX6kREUgbrkqr237Ot Tgi8kzSQMuoRNmWPmqJAP1U 37fb4C5 WIGzBPHpWJX4nNU2hC9xfUi nbjogbGVmdDsgdmVydGljYW cxCDmqK854MFDvgZjkQv1CZ sa5E8Uc Law5GXMfrTxpQM2ehGPgBEk mNp8dbUrzzXmoIR1tGDOzar gts486XrPkh5nbCHFprILfJ GltZXM7 H80ce1N4CGEyVVYaAMZ5sIH 7jC6cbYtzwtqouLKcoZorpq LkkUunFPwnFZivT132UNGnv DsnPlBh eWVyOjwvdGQ+LI44dh25L6R eZkteYzw6DYImZWS5lWO7wG 1gQGJbEBejg5W1vXT1F7Okk yTzzm5b b2xs (more content not included)... Normal [facility] XR Ankle 3+ Views Lefton [...] Howell M.D. Transcribed by: JENN Technologist: STEVEN [facility] Consent for Treatmenton Consent for Treatment [id number] D:127 Normal [facility] Physician Orderon 04-03-2022 Physician Order [id number] CD:127 Normal [facility] XR ANKLE LT MIN 3 Von 2021 [...] by: MARQUIS HENSON Date: 2022-03-11 16:04 Normal [facility] PAP ACOG PANEL 2: 21 to 31on 10-24-2021 . . Normal [facility] Comment on above: Performed By: #### [id number] #### [facility] [address] [place] [address] Dr. Aura Griffiths Age Gdln ACOG Testing 23- Normal [facility] Comment on above: Performed By: #### [id number] #### [facility] [address] [place] [address] Dr. Aura Griffiths DIAGNOSIS: Comment Normal [facility] Comment on above: Result Comment: NEGA TIVE FOR INTRAEPITHELIAL LESION OR MALIGNANCY. Performed By: #### [id number] #### [facility] [address] [place] [address] Dr. Aura Griffiths Methodology: Comment Normal [facility] Comment on above: Result Comment: This liquid based ThinPrep(R) pap test was screened with the use of an image guided system. Performed By: #### [id number] #### [facility] [address] [place] [address] Dr. Aura Griffiths Note: Comment Normal [facility] Comment on above: Result Comment: The Pap smear is a screening test designed to aid in the detection of premalignant and malignant conditions of the uterine cervix. It is not a diagnostic procedure and should not be used as the sole means of detecting cervical cancer. Both false-positive and false-negative reports do occur. . Performed By: #### [id number] #### [facility] [address] [place] [address] Dr. Aura Griffiths Performed by: Comment Normal [facility] Comment on above: Result Comment: Radha Trevino, Horse Racetrack Manager (ASCP) Performed By: #### [id number] #### [facility] [address] [place] [address] Dr. Aura Griffiths Reflex Criteria: Comment Normal [facility] Comment on above: Result Comment: The HPV DNA reflex criteria were not met with this specimen result therefore, no HPV testing was performed. . Performed By: #### [id number] #### [facility] [address] [place] [address] Dr. Aura Griffiths Specimen adequacy: Comment Normal [facility] Comment on above: Result Comment: Sati sfactory for evaluation. Endocervical and/or squamous metaplastic cells (endocervical component) are present. Performed By: #### [id number] #### [facility] [address] [place] [address] Dr. Aura Griffiths Encounters Encounter Date Encounter Type Care Provider Facility Start: 08-01-2023 End: 08-01-2023 ambulatory CARRIE HAGANZIO Not Available Start: 07-17-2023 End: 07-17-2023 ambulatory CARRIE ARNULFO Not Available Start: 03-11-2022 End: 03-11-[address] CARRIE ARREDONDO Facility:[facility] Start: 10-18-2021 End: 10-18-[address] BUTLER ARNULFO Facility:[facility] Payers Date Payer Category Payer Unknown [id number] 2.16.84 [id number] 1997 Unknown [id number] 2.16.84 [id number] 1997 Unknown [id number] 1997 Unknown [id number] 1959 Private Health Insurance [id number] 1959 Unknown [id number] Summary Purpose Family History No Family History Records FoundNo Family History Records FoundNo Family History Records Found Advance Directives No Advanced Directives Records FoundNo Advanced Directives Records FoundNo Advanced Directives Records Found Additional Source Comments INFORMATION SOURCE (unrecogn ized section and content) DATE CREATED AUTHOR 04/05/2022 [facility] DATE CREATED AUTHOR AUTHOR'S ORGANIZ ATION 04/08/2022 [facility] DATE CREATED AUTHOR AUTHOR'S ORGANIZ ATION 08/03/2023 [facility] EPIC FOR RECORDS PERTAINING [...] BE BASED ON THE PRIMARY CLINICAL RECORDS. [facility]. provides no warranty or guarantee of the accuracy or completeness of information in this document.
== END 2024-04-07 21:05 | disposition home or self-care (01) ==
LOC: LAB 21:04
PROVIDERS: Visit Provider Physician Assistant
DX: Z01.419 Encounter for gynecological examination (general) (routine) without abnormal findings (principal)
CPT/HCPCS: 88175

== ENCOUNTER 2024-04-09 07:44 | Outpatient (OUT) | payer BC, SELFPAY ==
--- OUTSIDE RECORDS SUMMARY | 2024-04-09 07:47 | XMS_ITS | CCD ---
Author Organization [facility] Care Team Providers Care Lining Setter Name Role Phone DR CARRIE ARREDONDO Primary Care Unavailable ANGÉLICA NARAYANAN Attending Unavailable ANGÉLICA NARAYANAN Consulting Unavailable ANGÉLICA NARAYANAN Admitting Unavailable MARQUIS HENSON Consulting Unavailable DR CARRIE ARREDONDO Consulting Unavailable DR CARRIE ARREDONDO Primary Care Unavailable DR CARRIE ARREDONDO Admitting Unavailable DR CARRIE ARREDONDO Attending Unavailable CARRIE ARREDONDO Attending Unavailable CARRIE ARREDONDO Attending Unavailable JIMMY BURNS Attending Unavailable Problems Active Problems Problem Classification [...] Facil ity Coding Summary.on 04-07-2022 Coding Summary. CD:[id number] Gh0 bWw+PGhlYWQ+JW3AFIDsE33 gtPWmeZ2CX1qTEJ1QQPXSUI QVJJ2DMJ6xjQX3VLmdS2Tcn iAv ZxzqtPPdAZ31DKl1DYU7wXm dOXtmmJ6lbCNtU6i7SkQwAL 38fF09ZKgmNLXjBoV5FgEwq jsgbWFy K4vyHbHwrRRvGun+PHRhYmx lIHdpZHRoPScxMDAlJyBzdH haRC7fXr0uWQFsSRGwrKtyq HNlOiBj b8zbLHTyLFvaSK9sqScqM0M miGO4QISjl9q6Mb33vYV+PH JfMTI3jTwrGNcwa544AlXzj 3rnOUK6 yCQvOCdlBEI3S21ck6Q8ZYK xESZeONQ3iEW8uS6xvNiywe hlH7KpfWWdRjM5FZA2nXByh H7gcSjg pyozkM9uFch+A42KNM2YVRV AIT6MDny9F9PaRlnyiYR+PC 05SKQdDA66lNUezTHsu2ina Fv9OnUy NNLpSAN4uJjsHVbeb6GkBEV hW10vuIYsl5K8WKDnhKoglH XyTrOxuFH5hL3eGLgphytms 2hvdzsn Mlsif4jrre81gO13U45sVNm aPJJzPFH6SVJsOEClkFkrez 0stB9uEt5+NVour5hsf6ofl Up8QgRx LZSprsSmoZywSBN4g6QcMh5 3L5JxxLokn6OuTgs4nt71oO Bvl1X8rBI9AJupQQJawO6xY WxlZnQ6 RCPwEbDdbB07sBGhLWxjGl1 rlHjawKgbLV0uWGWqmwwvXF YiiG3eYXLckRLenZyeJP3xO TBpbjtm a174IcDsAXM4RAJypFLzA0B aoK8gNlLjZWXvPEJjR8RpgF FvPYupK295KZwbZlJ8BHHiz cTyJ4Vx LAEkhAhaCrL7a0Q1Jz5Py3A hwccaMZX0VUnkGYS4JlU5Jr XfHxA4S8AuTos7XXJseGoaU T1pT3Rj MJKsrxlxmkdhdNF0XKNfGVK qrJ41fVAbOWhnOc2at6B2l4 40DBKcYEBflN36Qh3eoHrjS TBwdCBU pD6hopmmt4bdqsrmCdRoPWH iPFo3AAj2OAUygUvvMdPsXT J9NgU9WOX1tOWevG0ztAtdj gnipT2r Oyc+U00rpG7xLVI2JKV3ztq fCOShbkPjUY55OU78J9XyOx wvdGFibGU+PGRpdiBzdHlsZ E5rReYy w2tcc6WcKSasR0PcOUVpBLc eHxf6JRGqSAQ8vZD0eK8rNL MgFCprx0O9bUS5P3ClbkYon c7cg4sj AMKfLZhkW24gsZAnj0O6RMB psYO9USJhrMktIpHqqI83Sa c+OXPbuHjrs4ScEgpuz0ybl 1idqEo9 IeCzVSFqqzIzsBlhTNL8d5Y rXo09H93fWDhuKODtFNXwGE VqKJGpeCpxju4buY0uMh7+P GNvbCB3 aPQ7jH4iILXvYgD8BRraO85 8DkKuzYSgUfopo3ony5eutC w5NbIqWWVdgwXaxQhmDHR6u 7ZtOi36 E68oXTilMTAyNEUnEPLmFBV mlIperx8imY1sDa7+PC9jb2 ulzg32nA59zTB+HLKwXCG4f WxlPSdw DAOkiX8yPObmUgV2OWMlZfO bwG44bJIkSFepFq0biQwczL fgMB4nUUZofzymy442PlSfc 2xkIDEw qYOwEMmmVST8S13ao6I2NTW mLFFgUIM6lPE1vD2dpXhrsn ogbGVmdDsgdmVydGljYWwtY EacC010 IHRvcDsnPlBhdGllbnQgTmF gONr6Q6DgGco2YRVbyDxbHT 6qjJNcMMnqAj4vgCmovIpiQ F2qCCXc psytg512KpWmm3yuPEAxmRG fHMjrYUK8T91oy6L8PGYmZA NdUTP1bAF6tF1naIezwapoj GVmdDsg zbHcoAtvXLchRZykI390UOT wxKutAvAcpzHsBMOvfBW4EY 53UH92oSGyz4D9kIX1A9BmD GRpbmct tvtxbLD3SNCoBWIepC95Vp9 xiRuyPi8yADNwNXQ9FVSywJ IqG2QcaW7fKsDvDFBvTSDxL 3RleHQt ZPqiA239KRiuDuL0HUAmobS sL8JtSQMxgIadSwZ5x7B7Us 1OH8A9CB64VB74qPDok2S7c BM7Y7Yn YZBcagytxgxohLB6MJVgTHH twU07Pf6lrHtzDp9wADGaLW X5DWAnsWYrI3DrtT1uIlQuS DAwMDAw F6CavCBlYLrfS870OCnhTjP 5IPTmaiAeE9EkGOJslJszGe B7m9P2Pp6OJIi3JV71MT76u KGgp6M8 rEN6W4SbBIJuvxmtirlsaEX 0PQYaGAPdlX49Ub0crMebFm 9oZFDwTLB2DSXtwFHjS5Aeh D3rOyDe AGHaKGVfP2LwlBTbYIgxO97 9EFkwEsD4PKRyyvWdJ2XyWP NvvAgsNpE1x9Y3Vp0SACXuQ S09YCT8 fND9OR86XM99A5JaJgzmySL ibGU+PHRhYmxlIHdpZHRoPS iyYQUkTxJkkPbtIH9oZl8gL GVyLWNv hGqrsLTzVnNfn4lwEKPbPJg bPP9hfQpmV4YwaHR7COCbl2 g2Vh98G17mA4ZibYT+PGNvb TM6vGZ6 gM4qUxPwUpG1YRdgI842YwM mhTPsWjmbq5qwf7bkrHq3If L8LAIkmfCkeQrrARB1d6WaX j28Y54v IHdpZHRoPSIxNSUiIHZhbGl lmg8rwA5vKn2+NDWzqKF0bV Y9yG7oZuOoRxF9JPhfQ038J nRvcCIv Urwya2siy9puzOy6AqIkSXH ffaCdwUboBZP7c3NnSo97S8 VthQahz1WzUaw3pc85wHThe 3E5hFP0 F8OgPMYcemibxGJclVfxEM3 kDCCkfbupWBQapD0sRZUhJ7 p3AfViBqO7CEpnC6GvtnP4W DEwcHQg WZpkRNE1P73gg6C6GXAtJMJ rQDH9bYE9oF7xsZcrvkryqB VmdDsgdmVydGljYWwtYWxpZ 246IHRv tEblBYEmeR7nSICduVHbqQr aTO9zSEJuduaoPsNZBUVGKW MORSpKIYOIKQAOGOP8Z8GyN hu6VXNc uXclZH3djMLvPHqvQg9tlZy bzDujXA9mBFXzbahjIJMigY 2rESZtxRRguDfwOG9pYFSpp aiik931 JwJvHZX7MOIrhVHdB5NkxY6 lBbPoHIMhVGRrH9UhyPTlJZ fgA356GSezEyI8ICQvgyNpW 2FsLWFs gJgxGuU3a8J8Jb8qXF1eGK9 eHTq6UN04NK30aZGhy2H5uX B7F7GwRDXokcfdmmwwjFO1J DAuMDUw jM62iNReFNquXp5qe6I2e83 8HZTbRURarC65Zh8piOvlYX KorFMNfG1htkbhn9zwitbdT zAwMDAw PXu1BBz8TIWljAirQtSlURD 1AsT9GDD3eUEbtP1jsRsnse llwC7mVis+FwTjYIEktpE3J 3DpUup7 CDKlcOslOZ5phDAoXHjdGu3 ktMxxeIttLL3mXZXybxmeBW XyrX4nAITyoOVlqRrzFZ7iZ TBpbjtm l975KuEkXBN2PTCdxLZrL2O jjO3pNtGtTNAfPPSfT7DmhG KyLVlzK020YFocDeN6XFGnd eObU9Ya ZLLxhXgoRwC9i2T1Zt0QSR3 etRR8R6KlSau5VIPqoOgtLW 6ykMPmRGskZj5nrZkzxHntL K4fSDRu anqiBMUbyG7dPEKbqDNlcPy eSR8qISNnvdqdt460BrLdBE N1FEPbhGZdJ5MklN3xEpYhS DAwMDAw F0EkdIQtZTwvZ639MXtwXpL 2ITEehmIjJ1XsJWJifDwzOb Y7t6S3Zh0NoUGcBPPdCQ69A V09CA59 J0OjHqxkiCLvxIF+PHRhYmx lIHdpZHRoPScxMDAlJyBzdH ggCE7hVw3cPWXxCKAzhDqnv HNlOiBj u0xqLCRyDLjsHY8ztDznA7Z orJH2USMwk8y2Sa72L22gT0 JvdXA+PVCxvNV4uXS8aG5xW zAlIiB2 ESydC893BhLtaQVgBjhoh0z pe6vcvZs8HfFuITJeizSyvS gzVMH4i9CfAk70O53xBGacB HRoPSIy NGBwJCZfrBzxmj4hgS6kUg9 +RBWtjPJ5eYT2pP7xEwZrDi N2FPzpT830IjPfvLFcUsoxW 04gU6Fj dXA+FBYkSlt4KSPsqHtvJG1 rcRArQNxtGa8rVJS4CkMvBj LxZKjdJ1OyCPIquzxvvhuol CH7UFDn FGPvaZ24Kb1kgWpiZb8zTTG wHDI7LWLwuROkL7LqjG6bTk CbFHEbGKDgO1WgvFPlQNluY 246IGxl ArJ7PJAkbsGdF3BwJZVwjLu kGrV2d6F3Ad9SiLjgeLXkYV 9pTlLzVZn3P2RwCvy6ZJOgc BnwNX1r gRDcRZhmVk7kcKotzJyoTE4 gLLXndwqyn641UeUlz4dxZZ XuoRXrXRbvBVP1W47bp1H6H CMwMDAw UDB2qRG4nF4wkNbdxponzAV mdDsgdmVydGljYWwtYWxpZ2 53AYHvsHpcRdIYCqt5Y7CvJ yu7UMYv mLmzGT3gfXCvJNpnKe6yjLh yvGspZE5xHTVhdrdjm123Wk Ibl3yqECCctEAcYHhqVST1W 60bq2S4 ROFvVFYhBTX4yTR2gL3mbSj nbjogbGVmdDsgdmVydGljYW soJNypV411GOEblBoeCj6UQ ms4H4St Lov3YMDjxIbqPP5rdIJtYJh gOz1fpXldeIwoOW6rNUSwzn jbh449NwDjh2gnNVBlnAKiZ GltZXM7 P66nc9K9AORfMRLfBRN1hNP 4aR8mdPyiyjpqdGGanDdjbo IsvHnhGOxkUTeyE653ZCRvg DsnPlBh eWVyOjwvdGQ+JP27uh38Y6J qSsbyXth4SBKqBPP0iNX4vU 4dZYBeFJpvw5P5iSS8E8Hgq vNesj2c b2xs (more content not included)... Normal [facility] XR Ankle 3+ Views Lefton XR Ankle [...] Howell M.D. Transcribed by: JENN Technologist: STEVEN Normal [facility] Consent for Treatmenton Consent for Treatment [id number] D:127 Normal [facility] Physician Orderon 04-03-2022 Physician Order [id number] CD:127 Normal [facility] XR ANKLE LT MIN 3 Von 2021 [...] authenticated by: MARQUIS HENSON Date: 2022-03-11 16:04 [facility] PAP ACOG PANEL 2: 23 to 31on 10-24-2021 . . Normal [facility] Comment on above: Performed By: #### [id number] #### [facility] [address] [place] [address] Dr. Aura Griffiths Age Gdln ACOG Testing - [facility] Comment on above: Performed By: #### [id number] #### [facility] [address] [address] [address] Aura Griffiths DIAGNOSIS: Comment Normal [facility] Comment on above: Result Comment: NEGA TIVE FOR INTRAEPITHELIAL LESION OR MALIGNANCY. Performed By: #### [id number] #### [facility] [address] [place] [address] Dr. Aura Griffiths Methodology: Comment Normal [facility] Comment on above: Result Comment: This liquid based ThinPrep(R) pap test was screened with the use of an image guided system. Performed By: #### [id number] #### [facility] [address] [place] [address] Dr. Aura Griffiths Note: Comment Normal [facility] Comment on above: Result Comment: The Pap smear is a screening test designed to aid in the detection of premalignant and malignant conditions of the uterine cervix. It is not a diagnostic procedure and should not be used as the sole means of detecting cervical cancer. Both false-positive and false-negative reports do occur. . Performed By: #### [id number] #### [facility] [address] [place] [address] Dr. Aura Griffiths Performed by: Comment Normal [facility] Comment on above: Result Comment: Radha Trevino, Commercial Real Estate Appraiser (ASCP) Performed By: #### [id number] #### [facility] [address] [place] [address] Dr. Aura Griffiths Reflex Criteria: Comment Normal [facility] Comment on above: Result Comment: The HPV DNA reflex criteria were not met with this specimen result therefore, no HPV testing was performed. . Performed By: #### [id number] #### [facility] [address] [place] [address] Dr. Aura Griffiths Specimen adequacy: Comment Normal [facility] Comment on above: Result Comment: Sati sfactory for evaluation. Endocervical and/or squamous metaplastic cells (endocervical component) are present. Performed By: #### [id number] #### [facility] [address] [place] [address] Dr. Aura Griffiths Encounters Encounter Date Encounter Type Care Provider Facility Start: 04-07-2024 End: 04-07-2024 ambulatory JIMMY BURNS Not Available Start: 08-01-2023 End: 08-01-2023 ambulatory CARRIE ARREDONDO Not Available Start: 07-17-2023 End: 07-17-2023 ambulatory CARRIE ARREDONDO Not Available Start: 03-11-2022 End: 03-11-[address] CARRIE ARREDONDO Facility:[facility] Start: 10-18-2021 End: 10-18-[address] CARRIE ARREDONDO Facility:[facility] Payers Date Payer Category Payer Unknown [id number] 1995 Unknown [id number] 2.16.84 [id number] 1997 Unknown [id number] 2.16.84 [id number] 1997 Unknown [id number] 2.16.84 [id number] 1997 Unknown [id number] 1997 Unknown [id number] 1959 Private Health Insurance [id number] 1957 Unknown [id number] Summary Purpose Family History No Family History Records FoundNo Family History Records FoundNo Family History Records Found Advance Directives No Advanced Directives Records FoundNo Advanced Directives Records FoundNo Advanced Directives Records Found Additional Source Comments INFORMATION SOURCE (unrecogn ized section and content) DATE CREATED AUTHOR 04/05/2022 [facility] DATE CREATED AUTHOR AUTHOR'S ORGANIZ ATION 04/08/2022 [facility] DATE CREATED AUTHOR AUTHOR'S ORGANIZ ATION 04/08/2024 [facility] EPIC FOR RECORDS PERTAINING [...] BE BASED ON THE PRIMARY CLINICAL RECORDS. [employer] [facility]. provides no warranty or guarantee of the accuracy or completeness of information in this document.
[2024-04-09 08:50] LABS: HCG Quantitative 114 mIU/mL
== END 2024-04-09 07:45 | disposition home or self-care (01) ==
PROVIDERS: Visit Provider Physician Assistant
DX: N92.6 Irregular menstruation, unspecified (principal)
CPT/HCPCS: 36415; 84702

== ENCOUNTER 2024-04-11 11:32 | Outpatient (OUT) | payer BC, SELFPAY ==
--- OUTSIDE RECORDS SUMMARY | 2024-04-11 11:46 | XMS_ITS | CCD ---
Author Organization [facility] Care Team Providers Care Corporate Travel Agent Name Role Phone DR CARRIE ARREDONDO Primary [...] Facil ity Coding Summary.on 04-07-2022 Coding Summary. CD:[id number] Gh0 bWw+PGhlYWQ+YI1ORQBvV35 maKQqrI7BS4tGND5SEAQJJW NOYB1DUV9srPL1PDjmA9Eix iAv IrkjxGPcWT41PSp6MUZ7lSj jNNuxtB0fqNMxQ7p7IgKwQD 38uO32FJazDSQsIaF6IjPmn jsgbWFy X1pnGrGhwGDuJiy+PHRhYmx lIHdpZHRoPScxMDAlJyBzdH hyCX4mKf2aKLTjVABbxDpta HNlOiBj f0acNFLwDBqhEZ5dxRllP4A fbGB9UPYno3c5Xh84yNV+PH JxZBO1nNteRZrkr011ZqBya 5baYZI2 dOOnTHqzBXQ1M22ba9P5YMO cCCOeVUW4gOT5fQ5imTbtzp qaW0ZbuIMsDrE1YSQ5qDTwf E2syMfy lpowsD4aVhu+F93QIY4BYMO HSH5QOul8O5PuAgybaEM+PC 68LTGyRN73fYJzaPHoi4oeq Gf7LbWs LEDjGDX8oGxwQYide3LcNKR gV93hoEBmm4Y7JZSmlAohqT DcXgKmcIZ6zS7tJAzafkmzp 2hvdzsn Kpzgt9wygg71qU23P57bQAh lBXJsNPM7EVCeNMGmqLvtps 5meW5wKu0+MGuco1spr6zub Tm6HrQx WZCiwpCvhJtiQFZ0d5TaYc4 0F5CmeLpou3ZbJwi5qh88fM Pvu5B0mQO9ERidOHKwiB1lH WxlZnQ6 OQDvYlOfpQ39aCNdZWbwVk1 nnIepbMmqBI6xPNIduezaEP WsdG3rTAUevOBlhIpqSU4pJ TBpbjtm u046UlBbAZW7XEKgeGImB6S xoE0tGgFsOUQgDQPnJ5ZmrK PiZDfdC174IXbyRuA0PXCnb mOdB0Gm WKDziVyvUpM3d5G2Ci1Qr2V ldxplNNU3JKtuDCB2DbS9Al LmPaF2B9EzFqf2IHVtsSxnX E7sE8Ni OKMysydfpyxouLF5WDKmXKO ppW54qHAlLJtvKv0ee9Q2k1 21IJCbPMMsxQ31At3ueTiiY TBwdCBU fB5fjwnfi6rndoymMcRpXJM jLBj8YVg6IHYmsFtbLlQkOB P9IuQ1OYW1aVQqeA1rwPpoy pdmjB6q Oyc+N08vxM6nBEP0WQO6whk bQLYxqwXoEH38IJ57W3GsWo wvdGFibGU+PGRpdiBzdHlsZ K7lHpXe e7sno2TcKVqwR0JgKPMeROx vJed3KUZmFCM1wTK4vZ3gPE DlNNymp6F6rMH9W3XzvvFls c9tn5ly WLJhRZmuF31nxEEtq2H5GXC yzQZ9FSWhtPhjGdDbyG70Yx c+QAHwxJzhy1YiOfatk4wgu 9erdKu3 JtYmRGSwdcWkhBnzSIU3q3H iSs63E45cCEjwIRXcYDQrTO EsFJPrsVdeut9exH0iQh5+P GNvbCB3 fCO0hI3nMYRlBuC3FQvpA12 3VsKykCNbFjcpx6jex4coxY z7NvWjJOPdazGkhUhjYJU9u 6BeBh60 Z23tMSprKPWkMJFtVYHaKGV ccQrpho7puF9yPb1+PC9jb2 kzvq20jL02hAC+MBFlGYN3f WxlPSdw ZDNznF0xHDuhRtT9BDRoNsA ekE51kHUbYXmkRx0biOwfdK faUM9rCBKygsovt441JgMrf 2xkIDEw cQFjDQrqMVY3I89zt9B4RCW mEZJcPCW9dNJ6qH2djVzimd ogbGVmdDsgdmVydGljYWwtY QsnL238 IHRvcDsnPlBhdGllbnQgTmF tFKy2S0FeKvo0BDTzpXdrZY 6wjIEjHVlrWj9meIjjpFgvO O0sGJKo tdkun286VeRcc3ciFAGlqEN gFDqhKLM8I33se9V4ECTrGW OaDGF2bLP2uD5ixVjqpfhit GVmdDsg kdZcuStmFEdaLIllH029QUC edHakReYmjqMtPAFqpRU4TL 33BJ68wLOnc1C7lFK8K6YdK GRpbmct pqefgPW7SFToJKNysH81Yf9 deGlcKk8pDEMpIHP4SJLffH LxA1SuvE6jPpBgBMPtBZGbI 3RleHQt BRxqI657PRqwEyZ9SLUhzdW rA0UwWDOowAduTwP8m4I6Qe 8EP6U7OL91UE49zYVrt8Y5y PF9Y7Kq XPCamcrgufswhZT9NKFbNGV unB98Fn4wqTodLf3kEWHvFW W4JYFodYGkU9MpyU8mObBbX DAwMDAw D8DskOCtVFaqK385BLnzLdZ 9CLBxpxMaF6FsETZktPuhEv C3j5F8Qp9YLAe4GX40PU28u WZrc9E3 kLK3B3SoTHTvtbzobxlazDZ 2IVOzEILcnD03Wk0ggYxlPu 2hUMAzHAW9GRDmqYKhJ3Syx O5qObGu REKiICYvJ4ZjxVRmWLayU28 6TSpgYsP9TKRxeiMhJ1DgKG XdxRjrNsN4m3Q9Vn4LBXLpI Y94JOO2 fFO6DP85SP21C9ZaGophuDL ibGU+PHRhYmxlIHdpZHRoPS xdVDAkKaUdxHuoKY0vVv5rY GVyLWNv xXafqYJrCdZre9soQNGnTRe cBL6rbKksA7RmzLS9KLYfg8 k3Qj65Z64gF5GcxZZ+PGNvb SS3tZE7 uG7hIoIzMcV0VUckT530YbD kiGYdCvkdk6opn8nilSa3Oo B6FLQrdvXbaEvzMSE3e3EcC v86D42w IHdpZHRoPSIxNSUiIHZhbGl fcq0hcL4iEv6+ZCYjrSE0yY V8jN4yExRaMiA6SUyaM198I nRvcCIv Gcqgj9edd8csgJt9TdKiDDB mqsGgmQcdNZV2a1FiFl28P2 EoiYwof3QuLli9xv00xUSpx 2J0yHB0 P0ReMSZstbmguGVvpTkeQG2 xTLXvdnmkOBSxvQ5rDWVuK3 s8ByYdZrP5FEciQ6OrtrH9P DEwcHQg LJjaVIR0J14fc3K7HECwARX lCUH9qCO7pT4hvCqtmxtanG VmdDsgdmVydGljYWwtYWxpZ 246IHRv nVltPAJtjM4uMHKkeFBzlYp kLL8vHNGneahbZjYKVFUUAV EWTIwZTRQDSNYEOZW8X1IyA uc1XXDb gCppQV6jjYEfLBxxCn9awRh ofVawQU0hLWNxxarmPCJibG 7vZRFimPKreHcvXS0wTCKvj ljso007 XzLaLGL8JVMdfQIjD0EnxF4 qNxMtJVMwWKOaR4TncQUwTB wzV641RWavNmV8TXJtaqOiC 2FsLWFs tMaaXoR5g6K1Ws9vIY9iOJ7 jYTr8FB18LY22lRDxh0Y7iU K3W5IzXQBzzpswyijlmPB3N DAuMDUw bS51bQTnILmcWd6to7G0x33 4QUViNFYksO49Ym1iiZbyWO EecURWlQ6ywoarz9umfrmfS zAwMDAw RLm9SOd0UVVjcBsxAcIpFIK 6RnM4BWB4nGBghZ5ouGygnb qlmH7zUdd+CzZcOVOshdU7K 4SrRlw7 SNPhuNnwOF6haDZkFLbxOv4 rcXzwfKyuXV4lOEMihwweHZ YdtF2sVNSmiTTowTcsZV0iJ TBpbjtm g099AgNxSHR7JFRbnMWqF2E ccJ6xRgBaXVKaWIRzU5UjsH JaKCpfU517BOpxRrU1LZNmh cDhX4Bk CHEkxTvwLoJ2w1O1Vo1LVA2 paOD5Z9LtZmu9SVNgkZpbPZ 2jrKRpFHejCf6sdBeqiZtgW X1eNZGf daepNIPeqR1rKJUnrRHeoZh kMU0kCXWdqzkjt579UkTpQH C8JCZddNTwO4WikM8xShWpE DAwMDAw L1FcxNXvXAioX804LCojXiV 6LFWjmsIhK1HmRHSmiMitNp P4p2R0Xa9MbHCcHGEkRD00E P33NF54 Q5SkBqvgvGPzjBJ+PHRhYmx lIHdpZHRoPScxMDAlJyBzdH fnAG0gOf3mAOUhUAWinKbwt HNlOiBj b1rwNTKmWEdrSI2vjMznM5S tbAZ5NIHpq7f5Tv44Y97xI3 JvdXA+QMYviKD1oEM2zO4xB zAlIiB2 ICooI285YyBqiKKoJoufl0g wa6crpLh7FhBmUVIzzfZedB ukUMO0m4LiYs57S29hUOzdS HRoPSIy SFHbNEWwzCyjlh2efC0qNn5 +ZVXzaDB9nMB1kW9iBtRnIb S1KSwpJ037JqMbiERtGjjeH 35kN5Cv dXA+UTJaSbd2YEDqsKhqPI8 ciRTrWBceAc7fTAH8UhMmIr KxHXykH3SbFOGakgjvdfwef UG7HRPc TVBhiK29We4wgRjnJm5jUCL oXXX0VFHpzLOjD0JerP5rOo BzFGSdPMSrH2DmdVCzJQmnE 246IGxl XcJ4BXWmtiZiK7MhUBDiiEb mWvV3z3T5Yl0ZjVhtgRFzKJ 3zCqOwKBw2R7WgEgd0ZPHxc DwlPV2y kZEiVXmmEg3trChdpTsbBL3 kAGFbyrjnh222EhLvy5ggNJ RmdXIqJPajRRP3Z79bv9E1I CMwMDAw KYY6nDB2pL8poYzuybeflNW mdDsgdmVydGljYWwtYWxpZ2 39JWCyfYcmOhFHFvn1L1VuR sy2JCYe kGkrLR1kgFBlUZisMz3qyLy csFvkRT2cXXTwklpha040Xi Wmh8wgSFHydWRoOApoTGC3K 17up3C8 TTQjYZWiVIZ6sNG0qO7rvNu nbjogbGVmdDsgdmVydGljYW lwYAciL461KPQzmZvnPj0RX ew7O9Sp Mvp1QLElgOleZX8ozNDjHSu hFa3xpHcgiMkyVT4bDMJeyb cmw685OqYoc9nqRPNplMJrZ GltZXM7 V14dm7R7OIRvJHPcLNY8pCM 1oR0ttOejdxmwzGBdbDotxo YoaZpnRFrjCMgnN731HFLpj DsnPlBh eWVyOjwvdGQ+ZG45hs45Y2B wPnboAbb7JFOjQTA0pLU0mK 0tEIEiLTazs8W3lTC1J2Vqw zLfjj1j b2xs (more content not included)... Normal [facility] XR Ankle 3+ Views Lefton XR Ankle [...] M.D. Transcribed by: JENN Technologist: STEVEN Normal [facility] Consent for Treatmenton Consent for Treatment [id number] D:127 Normal [facility] Physician Orderon 04-03-2022 Physician Order [id number] CD:127 Normal [facility] XR ANKLE LT MIN 3 Von 2021 [...] authenticated by: MARQUIS HENSON Date: 2022-03-11 16:04 [facility] PAP ACOG PANEL 2: 21 to 29on 10-24-2021 . . Normal [facility] Comment on above: Performed By: #### [id number] #### [facility] [address] [place] [address] Dr. Aura Griffiths Age Gdln ACOG Testing - [facility] Comment on above: Performed By: #### [id number] #### [facility] [address] [address] [address] Aura Griffiths DIAGNOSIS: Comment Normal [facility] Comment on above: Result Comment: NEGA TIVE FOR INTRAEPITHELIAL LESION OR MALIGNANCY. Performed By: #### 4 [id number] #### [facility] [address] [place] [address] Dr. Aura Griffiths Methodology: Comment Normal [facility] Comment on above: Result Comment: This liquid based ThinPrep(R) pap test was screened with the use of an image guided system. Performed By: #### 4 [id number] #### [facility] [address] [place] [address] Dr. Aura Griffiths Note: Comment Normal [facility] Comment on above: Result Comment: The Pap smear is a screening test designed to aid in the detection of premalignant and malignant conditions of the uterine cervix. It is not a diagnostic procedure and should not be used as the sole means of detecting cervical cancer. Both false-positive and false-negative reports do occur. . Performed By: #### 4 [id number] #### [facility] [address] [place] [address] Dr. Aura Griffiths Performed by: Comment Normal [facility] Comment on above: Result Comment: Radha Trevino, Art Instructor (ASCP) Performed By: #### 4 [id number] #### [facility] [address] [place] [address] Dr. Aura Griffiths Reflex Criteria: Comment Normal [facility] Comment on above: Result Comment: The HPV DNA reflex criteria were not met with this specimen result therefore, no HPV testing was performed. . Performed By: #### 4 [id number] #### [facility] [address] [place] [address] Dr. Aura Griffiths Specimen adequacy: Comment Normal [facility] Comment on above: Result Comment: Sati sfactory for evaluation. Endocervical and/or squamous metaplastic cells (endocervical component) are present. Performed By: #### 4 [id number] #### [facility] [address] [place] [address] Dr. Aura Griffiths Encounters Encounter Date Encounter Type Care Provider Facility Start: 04-07-2024 End: 04-07-2024 ambulatory JIMMY BURNS Not Available Start: 08-01-2023 End: 08-01-2023 ambulatory CARRIE ARREDONDO Not Available Start: 07-17-2023 End: 07-17-2023 ambulatory CARRIE ARREDONDO Not Available Start: 03-11-2022 End: 03-11-[address] CARRIE ARREDONDO Facility:[facility] Start: 10-18-2021 End: 10-18-[address] CARRIE ARREDONDO Facility:[facility] Payers Date Payer Category Payer Unknown [id number] 1995 Unknown [id number] 2.16.84 [id number] 1995 Unknown [id number] 2.16.84 [id number] 1997 Unknown [id number] 2.16.84 [id number] 1997 Unknown [id number] 1997 Unknown [id number] 1959 Private Health Insurance [id number] 1957 Unknown [id number] Summary Purpose Family History No Family History Records FoundNo Family History Records FoundNo Family History Records Found Advance Directives No Advanced Directives Records FoundNo Advanced Directives Records FoundNo Advanced Directives Records Found Additional Source Comments INFORMATION SOURCE (unrecogn ized section and content) DATE CREATED AUTHOR 04/05/2022 [facility] DATE CREATED AUTHOR AUTHOR'S ORGANIZ ATION 04/08/2022 [facility] DATE CREATED AUTHOR AUTHOR'S ORGANIZ ATION 04/08/2024 [facility] EPIC FOR RECORDS PERTAINING [...] BE BASED ON THE PRIMARY CLINICAL RECORDS. [employer] [facility]. provides no warranty or guarantee of the accuracy or completeness of information in this document.
[2024-04-11 13:09] LABS: HCG Quantitative 303 mIU/mL
== END 2024-04-11 11:33 | disposition home or self-care (01) ==
LOC: LAB 11:32
PROVIDERS: Visit Provider Physician Assistant
DX: N92.6 Irregular menstruation, unspecified (principal)
CPT/HCPCS: 36415; 84702

== ENCOUNTER 2024-05-16 08:25 | Outpatient (OUT) | payer BC, SELFPAY ==
--- NOTE | 2024-05-16 08:27 | US_ITS ---
[place] [id number] Patient Name: KAREEN FORMAN MRN: [id number] date: 1995 Sex: F Assigned Patient Location: [facility] Current Patient Location: [facility] Accession/Order Number: [id number] Exam Date: 05/16/2024 08:30 Report Date: 05/16/2024 11:11 At the request of: CARRIE ARREDONDO Procedure: US OB transvaginal EXAMINATION: US OB transvaginal HISTORY: MISSED MENSES COMPARISON: 07/14/2023 FINDINGS: Single intrauterine gestation Gestational sac: 3.99 cm, 9 weeks 2 days CRL: 2.91 cm, 9 weeks 5 days Yolk sac: 3.6 mm Heart rate: 170 bpm Cervix: Closed, 4.1 cm The uterus is normal, anteverted, anteflexed The right ovary is normal containing a 2.7 cm corpus luteal cyst The left ovary is not visualized Clinical age: 9 weeks 0 days Clinical KASSIDY: 12/19/2024 Ultrasound age: 9 weeks 5 days Ultrasound KASSIDY: 12/14/2024 US/US OB transvaginal IMPRESSION: Viable moreira intrauterine gestation measuring 9 weeks 5 days Electronically authenticated by: ASHLEY HAZEL Date: 05/16/2024 11:11
--- OUTSIDE RECORDS SUMMARY | 2024-05-16 08:49 | XMS_ITS | CCD ---
Author Organization [facility] Care Team Providers Care Franchise Broker Name Role Phone DR CARRIE ARREDONDO Primary [...] Facil ity Coding Summary.on 04-07-2022 Coding Summary. CD:[id number] Gh0 bWw+PGhlYWQ+SV0ZHORaS70 cfPOrkM9TK3yWWG4QKOIVQM MHYA6ZXB4icYF4EJfzF3Pst iAv TzicnWZwOP09SOx0CJW3cFk lINsqoE4yrFOnG3x0QqMlCR 83lZ37QEhfWXNzOyS1PcSds jsgbWFy Q6eeQuEfnVTkGla+PHRhYmx lIHdpZHRoPScxMDAlJyBzdH zkBH6aUr2lQLGsNZJtpYmjq HNlOiBj c3uoSSRcENsyIR2hyAyjX0V txHA0PHSyb6i3Er52jNA+PH UbBWP4mRxbQBemm222NgSyp 7mrXWN6 bJQjLWdqUBF0V93vt9S7WCX sHSJxRIL9sBO9eV9gnUqfmd wiB9LnmPVcQaT1RVO5eEVlx R4xhLye lffxdD2pOcb+H62OIV1YXEG RJI5ATbp9P3JbCgsjbHK+PC 47EVFbCY13pJRzgTZxm7qkh Yt7BrRz KBUgYIH1yOnlDIlvj5BeEKJ zD12zaDEvd8A9GVHilVnfwL HmCpGfnDS6oO0aHLpktlgaf 2hvdzsn Hiajd8daxo39yK81T20xFHw qRLRxHEI6ZWLpOYSvmIihjb 4kmD1eZl8+WCkzs3oap1upw Zd0JiUd VDUovdRmcKmbKMZ6j2AsJy2 3N6SriCeoo4HzKcs4uz23nP Mnd0G4yRJ9HWyqXGEszJ9iB WxlZnQ6 YDZmDvBecF40fRGhELocBl0 xhBgnlUgsXQ1sNZFkyjjvFS SgkO0jNWOukVTqzGpcED9gA TBpbjtm k483PgLwSCF8XWNvnVYyU1B bnK9nSiOmOEMcAFRaG4LmyJ ZdJRriL629MGqgFcJ7AQWlf sPvH0Pj BVDszXvpHjY9w2M6Ym0Cd6D dpsxyMYB5QGzlBPH3OtG0Xs PyLmD4H1FiZcv6YDZijKdsM F0hE4Qn HWXuhqhadaflhVY9OWJdKZZ ceR14mXIcSSecZa5pp1Z2p8 46VIYaYCPytW80Rk5mnWunO TBwdCBU yH8wansfq4ixnoahVdCqVKX yNIz6DAj3CSZeyUkzQdPsMI Q2IeL4NTZ6iZTdtZ8odLluj jrclC3l Oyc+U38ahN9jZYW0BEO2yzn fQHDjvtPwMH03YV12H3OnBy wvdGFibGU+PGRpdiBzdHlsZ X8kUpCa m9rgj8RqDNqaE5EaNKUfVSr vVeg0EKPgGWD3pWZ3gM9uTE TxINfqk4Z8qHZ3J7EgraWts a5wm6lq AELmROpbK99byHHtk5Y8LJZ gmVO1ZEEpoLsgUgEgbP96Rw c+KLEthDzee8VcMueiu7sro 0isnYf4 BeBmHMIecgNixWyvSXC6b6S hYn22K28eFAxjBEKkOKBnIU ScTULkqHslrz2jdV1lJm5+P GNvbCB3 gVX6pF4eVLRnXmC4EVglC42 6KiJucMNfCepcf3exj4tnyL n1YjKkTGXwgnBhaQmzQSF4e 8DqBh08 F90dJHezMZHmMMOnIBFuVVC anTqcjy2ioO9hEj7+PC9jb2 ijqy42zG25mEB+YLPcLJP0l WxlPSdw JEAryS3dUSoyKvR8QOJfWuG cfY73bHYtHNmmVr6htIrjuW ajJM7rJCPtopyjt477OmFau 2xkIDEw tPDsXTppYGL7T30yl1Z8LGO sSMVhIEV3rLT2tK1lnZfhvx ogbGVmdDsgdmVydGljYWwtY HxgS316 IHRvcDsnPlBhdGllbnQgTmF rAQq3F2PsDeb6TRRrbHqhZO 1wzSUxHWbaTl0ceUiesGwbZ L9bVCLm djbid185NrFvn7hxOYUduCB pLWnfYUL8S59xg5M3UQErGU FeBLP3vFQ0uJ4ydZiitkcnn GVmdDsg mfTpdPmvNGfyARndU982ZRQ bwEnbIvIvnkFkIZWrtPY4NX 47SY19dFXpo7J3dES6Z6EkL GRpbmct hpmcrOX9ISHtFMIulO23Zw2 gbDzgTy4iRLRjIFO6BKExyI KhY7CwjZ0nHaZbVSAdQQZoE 3RleHQt KKabL538KJujFmD1BHPpjiV sO2QbXNRpfOflWjA0h7B9Jz 2HV9D7JH68AK69iGAzi0C3w RM4P2At PEJjvdizfzqhmWF5VGTdIOC bmA45Nn7cbNxzGh4dXUEeDD V1AOVlrKWgW3LyzG1eVrHeU DAwMDAw I1SemMJxMCniP316FHqvZoR 5ZWVandTlU3MuOFPspIvzZm M0q7H8So3BAWz2UG47EJ57h UEti2Q8 yZY8U2ZiYFAennbgitajiFU 0QJBiBTCzcG49Hw6mrLtzSx 2zFWRgFIC6IGIyuQUkI4Bzu O7oMcTc BMSjRYEyD9BktUDuKWunK50 6TMcuLoW9JLIfnsZrG8BhJG AteLnwYcK4w1T5Jr0ARUTsD X84WLQ6 tXS9LF44KG51K4YgUfyguTO ibGU+PHRhYmxlIHdpZHRoPS qaQBGoAlZyvOxbIJ5pDl2zK GVyLWNv qRlsfORwXiJiw7bkQATeKUw gKX4pfMscY7QwwJY7OYJan8 b6Cl19O62sW4VnvGA+PGNvb JG3tLC1 gB2sAwWpZxS4EBrmC083HzB kdIThSqsav2tyt9ivbHl5Yi S9SXWfngUywZncBNS2x2WwB a28M45m IHdpZHRoPSIxNSUiIHZhbGl rjp9suJ3eBh7+RRVlwAY2sU S4iN4jZyFnOzA5JPixC775Z nRvcCIv Cwdce2vat2vzsFa1XmWdTSE foeAtqVlbFBS8n5JtGf03G4 XibVmkf5VtIxd3dt08sQMyg 7V1hIN7 I8MlCWDsafvpaPGbsKocPL5 eBECsptypOYFmqS1tASSlH8 w9HtFgUfS4NVnpQ9MvpoI5F DEwcHQg WJcdIRY6L12ro1X4XKPkBOO pGIM6uQW8aW8ioVsmtxgjlP VmdDsgdmVydGljYWwtYWxpZ 246IHRv zBmqHQGczM0jJSGikLBnmFw xEV8iOYVdiykjHzHBYSMUNQ FRZXbRCAXYAWTFNBF4M8OwD kw1JRWh uWnqBZ4blPFvIPshBj2enQy yoJhdXM4pBGZjjwqzCQNpzB 2gGNNbcKKcsVrdHW2aFDEgy avan702 YpNxXEQ5ZWVboHVzD7BejX8 uYwBaUZLyKQFwZ0ZgxJDmJH ovT049XMrhZfN7BQKxoxViL 2FsLWFs lXwtRkT3o6P2Fh6tGV0xHG7 jGAz2TH43BM79kDOur7H0xN E2T1AjJFYhwfnxgoxiiKV8W DAuMDUw eJ90iTMkVFlsNn2ir7T4d47 5RQLpIVJrpU87Qp5bhFqbUU BrcZAXpY9nsrcng7ipjvxvF zAwMDAw NWu4NIu9MBMfxRbuLdQiXPX 8GjV6DSF8vRRlwD6dbYdute wttP8zUvl+EkLxCVBdvwU5Z 9VkOlf7 HKPkrCmtWO1zkZQhJPirSa9 bmQubgBgpFS5lBQZspxzyOJ RgqF9lFDCvoYZinGxuKX5rG TBpbjtm i550TgIvGDJ4NJQnbVGwO2X eeR4pDpAiTBVoPMVaH6FfrA KwWBumT712IYcqAbN2KKUzs cYlM4Rg XBOfdEanDrM0c8A3Jo6EVF9 bgQI2O2KpUmd3QAHavMxoZX 2urOWcWYimFc6cjZwvlZqoE S4nHCUl wgiiRBBkpN2wYRNndULulRa fRT6bRCEsxayqe175VjUcNO P6THNtjTHaU2ExmN1sUvExA DAwMDAw O8IytKXgNTrkH820YGmdDuG 8KWQtjtFhE1YxGEWotKghYs G8o8P5Sz3JoKVvTXPqEV58W Y99NN46 G4PgIvezaPTnrJG+PHRhYmx lIHdpZHRoPScxMDAlJyBzdH dtIT4fNz2kZJNxCGNbpCxmy HNlOiBj j0zfKNViZUsjQU7ecTswZ0E yqHC6VNJgy4x9Jp64C96uT0 JvdXA+SGVzxTG4vLI0pL5fY zAlIiB2 RHeiY504JvDuxYLfAxbtk7i at2qujBf2YeYbNAQghzHxeE npDQD5y7DtOh61P26fEPwoI HRoPSIy UANaGZIsiLfuqx6taC7jYe4 +RGYkwRS2tAF9xF0aMcHlJt G1HPjfZ218KpNkrLAgHhpnM 74zN7Vb dXA+PDFkAnj7QEHnwPraQU7 idBJxRXzeDy8nWNM1SuCpYt OlREgqX0UaIFPbrdvgwwvln VP8XWBq GVVlhS98Qw5rjQbdRg2hHAA aZMV9TJXxaINrI2KhqS1zMh GoJEDtQPCjS7GgaGBjOLzmD 246IGxl XhZ7NMArwbHhE4JmCULzhTq sOzB3y1O2Wz3YjWyveEJjYG 1vLbEnLTz5H5StUjj3SUMcg FluCL2d lCDnNNioEv6ggDugiXpwPK9 xEZDgnvvgs784AuYiy1lcZH GvbIFnYQxjQLX7D48tj6Q9P CMwMDAw VID4jXQ7pT8jsJrvfrcexQV mdDsgdmVydGljYWwtYWxpZ2 11BTBbnYxtHaHYDfr5O6HbW fi9NKJx bWddCI1eyGXjFNvvNq1saVe nySqwMC2cYQUsteqqs766Wi Lxf2oaCVVzyHPvOAnkDWY4W 38km1D0 WHSqIIKdJLX8nYG6kC3djOz nbjogbGVmdDsgdmVydGljYW boMHtqF704ZPRxaKhlUr5DE zn4X8Fk Eez6QNPcoRhiAA7gsTWbBNd iLx8wfTgdaWaaRQ1tYIStan qnc505FrPye7crMETmpYWfE GltZXM7 F62qn2Q1PLHgTOZaMEZ8bPQ 9yM2khMlidssmsJRdhNujfz ZplJqlKMglJEbsC724EKUyb DsnPlBh eWVyOjwvdGQ+ZP58nr23T2A jWqfzBse8KAFeQLQ9wBV4vX 3zWQHhOHixf5C4rNL4L0Bie cZpzz1h b2xs (more content not included)... Normal [facility] XR Ankle 3+ Views Lefton XR Ankle [...] M.D. Transcribed by: JENN Technologist: STEVEN Normal [facility] Consent for Treatmenton Consent for Treatment [id number] D:127 Normal [facility] Physician Orderon 04-03-2022 Physician Order [id number] CD:127 Normal [facility] XR ANKLE LT MIN 3 Von [...] authenticated by: MARQUIS HENSON Date: 2022-03-11 16:04 [facility] PAP ACOG PANEL 2: 23 to 31on 10-24-2021 . . Normal [facility] Comment on above: Performed By: #### [id number] #### [facility] [address] [place] [address] Dr. Aura Griffiths Age Gdln ACOG Testing - [facility] Comment on above: Performed By: #### [id number] #### [facility] [address] [address] [address] Aura Griffiths DIAGNOSIS: Comment Normal [facility] Comment on above: Result Comment: NEGA TIVE FOR INTRAEPITHELIAL LESION OR MALIGNANCY. Performed By: #### [id number] #### [facility] [address] [place] [address] Dr. Aura Griffiths Methodology: Comment Normal [facility] Comment on above: Result Comment: This liquid based ThinPrep(R) pap test was screened with the use of an image guided system. Performed By: #### [id number] #### [facility] [address] [place] [address] Dr. Aura Griffiths Note: Comment Normal [facility] Comment on above: Result Comment: The Pap smear is a screening test designed to aid in the detection of premalignant and malignant conditions of the uterine cervix. It is not a diagnostic procedure and should not be used as the sole means of detecting cervical cancer. Both false-positive and false-negative reports do occur. . Performed By: #### [id number] #### [facility] [address] [place] [address] Dr. Aura Griffiths Performed by: Comment Normal [facility] Comment on above: Result Comment: Radha Trevino, Base Filler Operator (ASCP) Performed By: #### [id number] #### [facility] [address] [place] [address] Dr. Aura Griffiths Reflex Criteria: Comment Normal [facility] Comment on above: Result Comment: The HPV DNA reflex criteria were not met with this specimen result therefore, no HPV testing was performed. . Performed By: #### [id number] #### [facility] [address] [place] [address] Dr. Aura Griffiths Specimen adequacy: Comment Normal [facility] Comment on above: Result Comment: Sati sfactory for evaluation. Endocervical and/or squamous metaplastic cells (endocervical component) are present. Performed By: #### [id number] #### [facility] [address] [place] [address] Dr. Aura Griffiths Encounters Encounter Date Encounter Type Care Provider Facility Start: 04-07-2024 End: 04-07-2024 ambulatory JIMMY BURNS Not Available Start: 08-01-2023 End: 08-01-2023 ambulatory CARRIE ARREDONDO Not Available Start: 07-17-2023 End: 07-17-2023 ambulatory CARRIE ARREDONDO Not Available Start: 03-11-2022 End: 03-11-[address] CARRIE ARREDONDO Facility:[facility] Start: 10-18-2021 End: 10-18-[address] CARRIE ARREDONDO Facility:[facility] Payers Date Payer Category Payer Unknown [id number] 1997 Unknown [id number] 2.16.84 [id number] 1997 Unknown [id number] 2.16.84 [id number] 1997 Unknown [id number] 2.16.84 [id number] 1997 Unknown [id number] 1997 Unknown [id number] 1959 Private Health Insurance [id number] 1957 Unknown [id number] Summary Purpose Family History No Family History Records FoundNo Family History Records FoundNo Family History Records Found Advance Directives No Advanced Directives Records FoundNo Advanced Directives Records FoundNo Advanced Directives Records Found Additional Source Comments INFORMATION SOURCE (unrecogn ized section and content) DATE CREATED AUTHOR 04/05/[address] [facility] DATE CREATED AUTHOR AUTHOR'S ORGANIZ ATION 04/08/2022 [facility] DATE CREATED AUTHOR AUTHOR'S ORGANIZ ATION 04/08/2024 [facility] EPIC FOR RECORDS PERTAINING TO [...] BE BASED ON THE PRIMARY CLINICAL RECORDS. [email or web address] [facility]. provides no warranty or guarantee of the accuracy or completeness of information in this document.
== END 2024-05-16 08:26 | disposition home or self-care (01) ==
LOC: NOMS 08:26
PROVIDERS: Visit Provider Obstetrics & Gynecology
DX: Z34.91 Encounter for supervision of normal pregnancy, unspecified, first trimester (principal); Z3A.09 9 weeks gestation of pregnancy; N92.6 Irregular menstruation, unspecified
CPT/HCPCS: 76817

== ENCOUNTER 2024-05-25 17:03 | Emergency (ER) | payer BC, SELFPAY ==
--- OUTSIDE RECORDS SUMMARY | 2024-05-25 17:07 | XMS_ITS | CCD ---
Author Organization [facility] Care Team Providers Care Vacuum Plastic Forming Machine Operator Name Role Phone DR CARRIE ARREDONDO Primary [...] Facil ity Coding Summary.on 04-07-2022 Coding Summary. CD:[id number] bWw+PGhlYWQ+OX6GNZTvL86 zrUTtdS1UY0iUDX8XMXPVAG NBWT3XQH7bdSL2AGfhZ0Hmu iAv YuqzvBQmUO45OWi6SIC6pMs xTAhmdZ4nbUYnE7p2EuXlRK 50wK17ZKmwVJEiGaM4CwDei jsgbWFy V6seMtWpyABtVou+PHRhYmx lIHdpZHRoPScxMDAlJyBzdH roII8fJw7sSSYuSWNhmDekm HNlOiBj e3qzQWOuMUwzVR3cwSydW4X hrWO3CCQzj0v9Tm65aFG+PH KmSPJ9qJwsKZpna016IzBhp 1huIWU3 jKMdQYgmIEH3C13av6F0IHA kSSGiMXE0fXX9uE5iwRhjgw deL6QjjAExEdC3BHL7xYBmv U2gnMog rkxoiP2lDyv+N93XUD2ASAI HDA6QDxg2T1AyGdumbCE+PC 69NCEvUJ99yPFwmPKaq1kyd Dn7SnJr RRQuUIQ5bPvhOHvru8MyXZZ wC89unLAnj2S6KDQdxQfxfZ ZyDaNgvDC0hK0cSRbobkxmb 2hvdzsn Qwnnx4knhz36iK75F15dRHz uQVJiPIU2TRSrVGVznVpvxb 7fnO0gZr0+JUuns9uta8iqg Rb2QbVv ELPkfnUqqIxpVVB1x7BdGe6 6J4XvgQshh0TsNww1eh23yI Krh0D1oMY2ZIuqGEWvbC6fL WxlZnQ6 VLLxXrVnvY79kDObTNmlLy6 tmWxfsNykHY7fKEAwukjfHC XeqI2aPEIxjYEpuFwpOH5tQ TBpbjtm s494BlPuDXI2QGGbsHFgQ6P ylY0uWbBvVUNhOTGdU1HocP EiSFucZ405ORkqJnV6GYQlw vQtO9Xc QGMyhTzgIfT8y7Q5Vt0Cw8W jvxuwXPM8NIsbHZD1LxZ3Sg BwWpR4C8FpCqe5LNVmpIfxI L1mM4Zy ALTpgbttfirwyUO4FUJmKAO lwL56kXGgIOhvYo8gf1V4e0 41AMGvUFLlsS53De2ttSmjZ TBwdCBU rY8thmlth5ffnylwSgRfZBH aLXp7LWl2LVWrnSyuIxGxKW J9GyY2THH9mJWlgD6byNxyx zkkkZ3d Oyc+E36ckY8yPZB5DWB4yjq uVTJpleDfHK09BU71R2AgIh wvdGFibGU+PGRpdiBzdHlsZ R3kJsLl t0dul0DbEHswZ1CmJODjNXs qIgw2VQNtEHG4hEW6yV5cHR MvYKbkk1T0wVR1H2NmavLdo x5gn1gx LVXvULcuP23qgYJtd7C1CLX rnRO2BMIseMvnYeQggA75Ws c+RJMmfJqqh0EaPslij6mvh 2cqmVw9 OcGdLFAzwwPtbDjkPAR7e4C eXe79W40lWQaqLWKbTUVkVD VfYDRwjMkshs0yhJ6uLi3+P GNvbCB3 gAC2kX3vBISrBxI2MXubC68 1LoDtqNAoAojho8uiy6jghX r7XhDlKJEhdoWwkUrcXCC4h 8JqFo76 Y89cHIfyMMAzCWLwGOJbWFI yfAuxeq9liC5xOa1+PC9jb2 oofm76nP93bPQ+NOEnAXP5x WxlPSdw DYNhlB3qAEugPvL6BMObDlD vsB08kDQhCWtrEp0eiIgqoT pyXR0dERRdxkloo559JbJgc 2xkIDEw oWXkCCyuTTY0N60jc2Y9OIZ lCVWnVLT1pED3bS9jbNfdwa ogbGVmdDsgdmVydGljYWwtY CfuY505 IHRvcDsnPlBhdGllbnQgTmF xXRh3A8RsLjt3TYOvfWcuQI 0flFUwLZqcOg9idAbkvMvyB E9vGOVd nhnbn496KnLoo8ihAZSlkBH dVHmfMOK1U54hm3B6MIDvMB IvGPV9eLZ1gH2jcHzkekguk GVmdDsg nuXzyAhjTOqoOAghV777CAF crAjpZbVedaMtRHTynCB3WN 62RU45yFXbn0L7nBZ4W3JzI GRpbmct loxzzVW5TXEqOQTnqL72Zm8 wkPeuVd4yTZJlMOO6SBUivE VnF7ZmkQ8oLgQwPEOnWZOqF 3RleHQt SKvtX909TItsTpD3MLPzvvX vM8NtHOXydKjzWjE1o7C6Gp 5UC3F5MN13IO40lMHrk1K2v TN9M2Iy FJEvrrimyeiqnSK6RANoGSI fhZ15Xp7qqMmyEk2ySMNdBV P6NTTjcXVgO0JxbR4nMvFgP DAwMDAw G8LgjQHlWMwbQ560EUniQcK 5TLWrwzPnV9IxHYLymJznZi R8q2B4Uf3WIAi7LA53XO08n RVus4W3 qAO4Z0RcQMYfneztegnmgUR 5JPNvRDGaiR56Uk4usYfqLm 8bTQBkHPE3BDVxhASvC9Ytl B6vGpFx XWZkRFYyJ8PvaEJnSEhkX03 7MPenNeV6BJLwtpToP9NyMP UfcSgoCaT5l9E5St7JNCKlE Q96HAO2 tDZ2ST97HO29W8XyBgirmPZ ibGU+PHRhYmxlIHdpZHRoPS cuYKOyNmAtkDpeRA8lZq3hZ GVyLWNv dRokeWLuIdNqi0kbFTAvOMn kUC3vuWahC9DdeVP7BFWfx4 z3Cd67C16sX4IglQV+PGNvb QT5hJN0 dI5uYaAdAbY0VIicQ393WsY vqWWnXeozh1sgj6nmzKh2Hf S3MBVhjxVkaWnxCAZ4h5YnC c34B31a IHdpZHRoPSIxNSUiIHZhbGl jpp7xwU6pGd9+DRFqgEJ0wJ O0hH9pEwFiXwV7GKcsL546V nRvcCIv Kuciy5fzi5oliQq4OoSiIXQ yskRymVupECM3h3ZdCl29T3 RpjErks8ZdBve1xw97kJXla 9H3jEX3 G8XsTYTegjbspINyfWcmNQ9 hAZLejmnsKRGfkM9tCTJgF3 e7XdOwTpN3ZHfkN3NzvjC1J DEwcHQg EYjzLWJ8U35sy7Q4WVUlZNT yTFF1gQU4mR7qqGqhzeronZ VmdDsgdmVydGljYWwtYWxpZ 246IHRv rUwrYOSyjJ2vGHPsoEHqyYn wKN5dSYExsuqpJxUPQRZYFM TZTDwWQPOXXGJOJSF3M6WtD pe1UAJt eSfeDR1kvESuGQcbKb0rvUu gsPidSE7xTCWgumadJBQnwR 7vZEElqFKgqGveYI0sZYQzw tjxl989 JeCrRZE3JYJyvKXiH2CueE2 jDnRvMJAkQZDrH9HtvUNlCH emL612BQqvFrQ9NQPdumXbY 2FsLWFs qDzeLmV8s6A6Wx0oHE8mYZ9 qDYu7TQ30SM43lXCbu1V9yE L1V6PcJIXgywrxyetiwSH9Z DAuMDUw pN29rVXvJJdeLf4kx3K7k20 0CUDcDCCpgR07Qo1oiMjsWI YzoJPHhX2ymwoke2lzrqvbO zAwMDAw QIu7LUs9LAUvyTwyJrQtDUS 3VgU7FQH1tXFyyH5xvOtocg dwvH0xXbj+VoDcSWEzqkG2E 1MpKev5 FQVdwCpaSU3erLWcLRnwUd9 viEbucFhxUL4fPPWzsbdaEQ CvuZ7rYAOqnRAkpXkqLC9xP TBpbjtm b178YuIoMCO1SCCyqGTjD7L roL5uXhKbJIYqOVZqN6HmlC GfIZeaI242LWxgTlJ3OJNek lCiW5Lu GHEdvFzxQbM2j9W4Se9DSW4 ivFP1H6SkUjq0PZPvkXrlML 4gpOEdAEznZe2kmZtxqOeoM N2uWVKp oplnFICfcX9xKOSsbEUaoQp lUT9fHTPpvdred534XpCyRD F0SPDuhFZmX8GsyQ6kYwUdS DAwMDAw G6OegJRhNYrfE832IOvxViG 4RVLtttNhS7EdZSRrbByzKx G0y4K8Ja9BuFSlWLBxMH36B A57EC83 G3OrAnftnKKdcXN+PHRhYmx lIHdpZHRoPScxMDAlJyBzdH uyIY0kNy6sDWRdGIBoeRscp HNlOiBj u2mcCZCgTHzxVL0mzStyE8G dbLM6WZEzw6w6Gi31G75zA3 JvdXA+CLRwiWR9aOF6kG7vF zAlIiB2 OFfaP707RqUgqDJyTengx7i sb4pcxVn6KoDdUPQxbrMffY huSHA0b9PhRw32O71rWHxiO HRoPSIy NNVgGZPupNsftz9ehJ1gLf2 +MTVefKK8cVM3qW8wEkIwMr Y7PPgsT756UuJaiNCcXlneD 01gI4Az dXA+EZOtWke8KJAxfLnjIC4 ztBVmVOwpGw1yQBU0LkShZj DaKXdnL9GfACDwfzglgggjp KO2YCVw ALLbyS68Xq5chIixGc2kJSY wTIV2PXBhzHDnB4YmiC6nSj CzYHEkIKHxA3KoqIMuJXowG 246IGxl WiQ5FGZszaVmR9RcFDXwkZc dNwW0l7I6Zf2UvWzzmQRnIV 1wJbQkDPs6M3PnCqa2VCUbp BobXC4h cXLsYGuaVu9pvIyfmDglUC4 jXNAstkuyp614BxXpz4yoSH QkmXMfRHrhBVA2W22dm9M0D CMwMDAw VIL8eYD1xZ7lhGgcsegpiYL mdDsgdmVydGljYWwtYWxpZ2 49NQQndFufZvAOWzi3W7XvG zs1KDSh bHveGU4msIMhYPiuJo8luRy zhBpkEX7fCRQzjnnem698Yi Blj1zbFJJejNMjINqqTIV9L 52tu6B1 CZIoOQQxPMP0aZP9vE4vmJg nbjogbGVmdDsgdmVydGljYW riFYumS442EDCkoRzfGc8HL os7Y4Zj Vbo1MSUeqRcqIQ1jmQDmQWj dMh6baRgfqUctNI9kLTGzry mwk963PeUcn9kpANUdbZQnK GltZXM7 J45be5I7WWSsMHDfRLA1tOC 2sP6bgVrnnqaqmATcqXdlgp MvpOtbGPrkPPlzF399CBSff DsnPlBh eWVyOjwvdGQ+GY38wg44Q1P fIhauZwf4SWUtHOL6hJW0rD 7bLDHuQVkrk8I1vCY2I0Usg yTlsu7r b2xs (more content not included)... Normal [facility] XR Ankle 3+ Views Lefton XR [...] by: JENN Technologist: STEVEN Normal [facility] Consent for Treatmenton Consent for Treatment [id number] D:127 Normal [facility] Physician Orderon 04-03-2022 Physician Order [id number] CD:127 Normal [facility] XR ANKLE LT MIN 3 Von [...] authenticated by: MARQUIS HENSON Date: 2022-03-11 16:04 [facility] PAP ACOG PANEL 2: 21 to 29on 10-24-2021 . . Normal [facility] Comment on above: Performed By: #### [id number] #### [facility] [address] [place] [address] Dr. Aura Griffiths Age Gdln ACOG Testing - [facility] Comment on above: Performed By: #### [id number] #### [facility] [address] [address] [address] Aura Griffiths DIAGNOSIS: Comment Normal [facility] Comment on above: Result Comment: NEGA TIVE FOR INTRAEPITHELIAL LESION OR MALIGNANCY. Performed By: #### [id number] #### [facility] [address] [place] [address] Dr. Aura Griffiths Methodology: Comment Normal [facility] Comment on above: Result Comment: This liquid based ThinPrep(R) pap test was screened with the use of an image guided system. Performed By: #### [id number] #### [facility] [address] [place] [address] Dr. Aura Griffiths Note: Comment Normal [facility] Comment on above: Result Comment: The Pap smear is a screening test designed to aid in the detection of premalignant and malignant conditions of the uterine cervix. It is not a diagnostic procedure and should not be used as the sole means of detecting cervical cancer. Both false-positive and false-negative reports do occur. . Performed By: #### [id number] #### [facility] [address] [place] [address] Dr. Aura Griffiths Performed by: Comment Normal [facility] Comment on above: Result Comment: Radha Trevino, Glaze Mixer (ASCP) Performed By: #### [id number] #### [facility] [address] [place] [address] Dr. Aura Griffiths Reflex Criteria: Comment Normal [facility] Comment on above: Result Comment: The HPV DNA reflex criteria were not met with this specimen result therefore, no HPV testing was performed. . Performed By: #### [id number] #### [facility] [address] [place] [address] Dr. Aura Griffiths Specimen adequacy: Comment Normal [facility] Comment on above: Result Comment: Sati sfactory for evaluation. Endocervical and/or squamous metaplastic cells (endocervical component) are present. Performed By: #### [id number] #### [facility] [address] [place] [address] Dr. Aura Griffiths Encounters Encounter Date Encounter Type Care Provider Facility Start: 05-16-2024 End: 05-16-2024 ambulatory CARRIE ARREDONDO Not Available Start: 04-07-2024 End: 04-07-2024 ambulatory JIMMY BURNS Not Available Start: 08-01-2023 End: 08-01-2023 ambulatory CARRIE ARREDONDO Not Available Start: 07-17-2023 End: 07-17-2023 ambulatory CARRIE ARREDONDO Not Available Start: 03-11-2022 End: 03-11-[address] CARRIE ARREDONDO Facility:[facility] Start: 10-18-2021 End: 10-18-[address] CARRIE ARREDONDO Facility:[facility] Payers Date Payer Category Payer Unknown [id number] 1997 Unknown [id number] 2.16.84 [id number] 1997 Unknown [id number] 2.16.84 [id number] 1997 Unknown [id number] 2.16.84 [id number] 1997 Unknown [id number] 2.16.84 [id number] 1997 Unknown [id number] 1997 Unknown [id number] 1959 Private Health Insurance [id number] 1957 Unknown [id number] Summary Purpose Family History No Family History Records FoundNo Family History Records FoundNo Family History Records Found Advance Directives No Advanced Directives Records FoundNo Advanced Directives Records FoundNo Advanced Directives Records Found Additional Source Comments INFORMATION SOURCE (unrecogn ized section and content) DATE CREATED AUTHOR 04/05/2022 [facility] DATE CREATED AUTHOR AUTHOR'S ORGANIZ ATION 04/08/2022 [facility] DATE CREATED AUTHOR AUTHOR'S ORGANIZ ATION 05/18/2024 [facility] EPIC FOR RECORDS PERTAINING [...] BE BASED ON THE PRIMARY CLINICAL RECORDS. [facility] [employer] [facility]. provides no warranty or guarantee of the accuracy or completeness of information in this document.
[2024-05-25 17:09] VITALS: BP 141/97; PULSE 100; TEMP 36.7; O2SAT 100; BMI 46.0
[2024-05-25 17:29] VITALS: BP 130/75
--- NOTE | 2024-05-25 17:49 | ED_ITS ---
HPI - Abdominal Pain General Chief Complaint: Abdominal Pain Stated Complaint: Abdominal Pain Time Seen by Provider: 05/25/24 17:08 Source: patient Mode of arrival: walk-in Limitations: no limitations History of Present Illness HPI narrative: 28-year-old female presents here with chief complaint of abdominal pain. She is currently 10 weeks . She states she was [place] a dirt track yesterday and a piece of a mud accidentally hit her in the abdomen. She is here for evaluation. She has had no abdominal cramping or vaginal bleeding. Patient is otherwise healthy. No ecchymosis noted no pain to palpation of the abdominal wall. abdominal exam is benign no further testing is necessary at this time. Related Data Previous Rx's ?Medication ?Instructions ?Recorded naproxen 500 mg tablet 500 mg PO Q12H PRN pain #10 tabs 07/14/23 metoclopramide HCl 10 mg tablet 10 mg PO Q6H PRN nausea and 05/25/24 (Reglan) vomiting #20 tabs Allergies Allergy/AdvReac Type Severity Reaction Status Date / Time No Known Drug Allergies Allergy Verified 05/25/24 17:08 Review of Systems ROS Narrative All Systems are negative except as noted/marked.All systems reviewed and otherwise negative PFSH PFSH Social History Little interest or pleasure in doing things: not at all Feeling down, depressed, or hopeless: not at all Exam Narrative Exam Narrative: Nurses note and vital signs reviewed and patient is not hypoxic. General: The patient appears well and in no apparent distress. Patient is resting comfortably on cart. Skin: Warm, dry, no pallor noted. There is no rash noted. Head: Normocephalic, atraumatic Eye: Normal conjunctiva, no drainage, EOMI. PERRL Ears, Nose, Mouth, and Throat: oral mucosa is moist. Nares patent. Mouth without vesicles. Ear canals patent. Tm's without Erythema Cardiovascular: Regular Rate and Rhythm Respiratory: Patient is in no distress, no accessory muscle use, lungs are clear to auscultation, no wheezing, rales or rhonchi Back: non-tender, no CVA tenderness bilaterally to percussion. GI: Normal bowel sounds, no tenderness to palpation, no masses appreciated. No rebound, guarding, or rigidity noted. Musculoskeletal: The patient has no evidence of calf tenderness, no pitting edema, symmetrical pulses noted bilaterally Neurological: A&O x4, normal speech Psychiatric: Cooperative Constitutional Vital Signs, click to edit/add: Last Vital Signs Temp 98.0 F 05/25/24 17:09 Pulse 100 H 05/25/24 17:09 Resp 14 05/25/24 17:09 BP 130/75 05/25/24 17:29 Pulse Ox 100 05/25/24 17:09 O2 Del Method Room Air 05/25/24 17:09 Course Vital Signs Vital signs: Vital Signs Temperature 98.0 F 05/25/24 17:09 Pulse Rate 100 H 05/25/24 17:09 Respiratory Rate 14 05/25/24 17:09 Blood Pressure 141/97 H 05/25/24 17:09 Pulse Oximetry 100 05/25/24 17:09 Oxygen Delivery Method Room Air 05/25/24 17:09 Temperature 98.0 F 05/25/24 17:09 Pulse Rate 100 H 05/25/24 17:09 Respiratory Rate 14 05/25/24 17:09 Blood Pressure 130/75 05/25/24 17:29 Pulse Oximetry 100 05/25/24 17:09 Oxygen Delivery Method Room Air 05/25/24 17:09 MDM - Abdominal Pain MDM Narrative Medical decision making narrative: Here for evaluation and an examination. She was concerned because she had been hit in the stomach with a piece and wanted a racetrack. She is currently . heart rate was 163 measured by bedside today. Patient's had no vaginal bleeding or discharge. I reassured patient that baby is very small at this time and safe. Patient will follow-up Dr. Payan's office. Patient also reports having increased acid reflux. I will send in a prescription of Reglan. She will follow-up in the office. Differential Diagnosis Differential diagnosis: Likely abdominal pain Medical Records Attestation: I reviewed the patient's medical records. Discharge Plan Discharge Chief Complaint: Abdominal Pain Clinical Impression: Contusion Patient Disposition: Home, Self-Care Time of Disposition Decision: 17:47 Condition: Good Prescriptions / Home Meds: New metoclopramide HCl [Reglan] 10 mg tablet 10 mg PO Q6H PRN (Reason: nausea and vomiting) Qty: 20 0RF No Action naproxen 500 mg tablet 500 mg PO Q12H PRN (Reason: pain) Qty: 10 0RF Print Language: Latvian Instructions: Contusion in Adults (ED) Referrals: JIMMY CLIFFORD [Primary Care Provider] - 1 week Marty Payan DO [Physician] - 1 week (follow up in office as scheduled) Discharge Date/Time: 05/25/24 17:55
== END 2024-05-25 17:55 | disposition home or self-care (01) ==
PROVIDERS: Emergency Provider Emergency Medicine
DX: O9A.211 Injury, poisoning and certain other consequences of external causes complicating pregnancy, first trimester (principal); S30.1XXA Contusion of abdominal wall, initial encounter; Z3A.10 10 weeks gestation of pregnancy; W22.8XXA Striking against or struck by other objects, initial encounter
CPT/HCPCS: 99281

== ENCOUNTER 2024-05-30 08:53 | Outpatient (OUT) | payer BC, SELFPAY ==
--- OUTSIDE RECORDS SUMMARY | 2024-05-30 09:04 | XMS_ITS | CCD ---
Author Organization [facility] Care Team Providers Care Stock Clerk Name Role Phone DR CARRIE ARREDONDO Primary [...] Facil ity Coding Summary.on 04-07-2022 Coding Summary. CD:[id number]:[id number] Gh0 bWw+PGhlYWQ+DQ9ZHUItK82 xqQRalI2BG9lWRG6YHNWXKV QPOP7YKT6szJS3DTouT0Jbj iAv OrkkzTSnZX33KAu0EZJ4pUa xGVmpaB9mpRCiB3m2ZiSoMU 30pI89XFapJXAlDlT5EhOvj jsgbWFy U3mvCnBtfDExGwa+PHRhYmx lIHdpZHRoPScxMDAlJyBzdH dkFN6uFk6oHLGkFDQukEjvp HNlOiBj y2syTVPnIQopNK1twRrcI0K iyNZ1BLMcp9i9Od06fYG+PH OwJUO0dNeyCHxlc327KpOns 5alPIK2 xEDsGFioOIL4F59ju9X0AYN oICMeYTC8iOI6sP6hdBzfwy vzJ3CrwUFlRsB1UOY7vTWsw U4goXdt bkkjaI0aSqy+C60MGJ8LXQP WYM9TErx4N6WfDdshsXM+PC 53BKHgGL04pFBcyWZga3wsb Us4DjFz EUFjZPK8fUjrQIkgb4AbZIG sV13nyWXie8Q4HFPolDjpbL JrFgGfaQY7uA4rTTpdijolt 2hvdzsn Yxnsu0gurm77jF90J88lRXf gXNJmZSK3EPFsFKJzrEkpuu 6guV9rVd0+RFghm2xvy6hem Qj3PjOc BABrzvViwErqQHV9i7UoKj6 6Y6EitZeuk4HbAjb8iz48pK Lgo5Q3wQO2KNekRFGtnD0zT WxlZnQ6 LNKrZeFykW52gICkJQhcFg4 ouSlavYxeMO2kQBJktrhrWL CmvV0mLDXzyULkuVteQI9qH TBpbjtm g264KmOwWLA4KKOfqOBcK6W wuK3wHoJtIMVhCKPcK5UueX ErUIicW505WSgeAnG8VVKfm cNsA6Zi DBFvgPnbWeW1m6W8Rs0Kk1K mnshhKAR0QMrrRGB9MeY7Im JzCsV5B5KjHkg9HSVnmQxxH G0pB4Ew ONLeafprajohcFZ2TWRoLXC irK60iHNmSZjePe1ay8G9r0 75LAPkJWXopR37Ko3ppEyiB TBwdCBU uL2wqiedo7rpddrqFfBbYMT aNLv7GIz2DIOlgJktXkPmYS W0QoV5LSM3jPPejS6wiCfhd jegeT6t Oyc+N55ioP3aBDT8RHQ6dhf vUDLoqxJsFH55PU82D0OmLp wvdGFibGU+PGRpdiBzdHlsZ C3xJgRf i0eqs5VrHKmyC5QzKLLhIIa pDew2WLCmSFL5uLG6eT1dGM ErZTmrz1X3aRY0P8GrkvXwc b5ts7hk EAVsNTukQ58duHQla2T1QZE hlGA3THWmxXcfFqXhjH79Tl c+QPZxuTjgl1KvDusrt7lyz 9yecDg5 QuDtYKXdydGzwUskTPK9z0J gBx93W54fQJjlKCQhLZTwPL KcXPZjjUaany9yuY7eDw5+P GNvbCB3 nBV0rZ3qXAIfRrT0CMybJ16 1YqVviABkVtvuu7nuv2jnyP f1OvSzISRrfsVjwUbfUGM5x 1OmUq31 K04oDDfpKDNsAHQgBYMsAOB maHkqbz1ckB5oFe8+PC9jb2 ubyc70lR71xIO+AXXuVQN6z WxlPSdw QZRyfB8yFEjsDwD5JMNoKdT hbD94eFCwOXloEl8wzXrscN wqKP3lVWTklncde228InOzd 2xkIDEw gXQdAUcpSDL6Y14hb7P3BSH uMVUgDOD2oHO0uP4zrWbnfy ogbGVmdDsgdmVydGljYWwtY WfaL386 IHRvcDsnPlBhdGllbnQgTmF nHBr6V9MzMve2DDPdvZchFW 7lzUFtUAsfEz3dtVomuPftM B3bFVFt rrdeu421XqSnc8knKBOzmKO aBTxqTLG8M39wh8N6FHRxRT CmKYJ8gIC6qK3dqIebdqqof GVmdDsg acXcrBqpAKnnDFpyK742SFQ goWyuJmYgjkAdEGQklQA8PM 85FU65lDFyp8L7eCB8B4SeK GRpbmct jnjkrHL3PVKqTYZqjA29Uv5 jhOliYn5eAFZbILQ2EGCzrX GmC4FmeS8xSaOdAUZkKVFtV 3RleHQt FTdfR644ETdqNqX0MMXospU pS5NpDUEruUybGdX8l9K5Fr 8OV1R2VQ58EY01gDYct4I6m KZ1P6Aa KBHcileeqqknqPS4SEXtVSL xeE78Sq8kfGjxDo3fYJPrHR A1IEDztPIoH8StbO8iBfAlD DAwMDAw H8ElkHKtQOqvO373OAvvFmI 4ZNEajqRtY7SvPMJyvPofIb R5s0R8Eq7GNAy7PS39FL63t KHcu2H2 gEC4Q1McPLBpaiqfkughlMD 7UNZbBVWntB76Nx9tfGyfJp 0eYEFfNHI9PSFxgZUpI2Ubo I2jWpCp SYVqJWKgN6IzwRBaSIomK96 0FQmfIsM2NPScsgGgQ3XrFH NjiNcaJeQ0n6T5Al0RCDTtF Y58KDX8 pUX9SW13BT40H6ReTwgbrEL ibGU+PHRhYmxlIHdpZHRoPS qqWDJoDcQotJtgTD5wTn3cT GVyLWNv zZzybIFjRaEen9ewGUFfKGl xMJ0kkTceD6FrqOP9IYRtw8 o2Bo17G72uJ2RtmAP+PGNvb JZ9qZS5 hJ0hFsErNxK4ORuaX076YwR wuMTkGppgr6asl1pceDr9Es J9VPKbmoLxxUofFPK0r2XxA l56I26t IHdpZHRoPSIxNSUiIHZhbGl pmx4fpH4lDv9+GAPhaST7nI X7uO0kWdKhZpP0AJqtA151E nRvcCIv Rabkh7lor5qicIy0TgZlRNC puePzkSqhZST9a9ZpSz49A4 NddKyvo5KvUpv8ve88cFQvc 4G3xCS8 Q4WpLKIjqsskbTZhbEskVK7 cRITzntpfJQPytB1tZEJxU0 d7ScRjStX8NWhxY8DaosW5X DEwcHQg MFhyGBL7T54pn4Z9IJBtPQY wJIN6gOY9oD4ezPyhjzupcA VmdDsgdmVydGljYWwtYWxpZ 246IHRv uSwgEKBtgF3hCRPxzAEhfNl dVS4vAPXhqjrgFuRGVEBKIN QBJKnTCRNQNLPZUTO9X9DhT cw5MUNi dLyxYD9nsNYxPZkmQr6qgBq qoRskDU9yALSwkzxzVYDlkJ 3uPXJtqBRnjRdnBI7aAIRiz vsuw272 WqLfMGZ6RZEkuMCgG6VehR5 eRkTzZPNpJYAnN3SvhLWzAL weA925LWyoVmS9PGVxctAfY 2FsLWFs cVycJhI6c9Z0Wj7tQY8lES8 vRCj0OU66XN29uILli3S8zI Y1A0IbWXIbstwmlsqduQM8D DAuMDUw oV00mVYlIUxdRv2zv8C0d02 1PVNxZRAcbY43Zy1hwAurYN LmmQXAeY3ghiswc9qcjtebX zAwMDAw FUy8SNm3HPEksCewGfKjMKJ 8FmC6AUR5yALwhS0koOdhte eykG7pBnf+HlFjGYLpeaL4C 6PgChz7 JLTuePizUL8rlTUwKDthBn6 unCqhwHvxNN0tIGOtmoksPS IhjM4uTWYqqBSqeNgmJB3mS TBpbjtm w025EoSuXWD5VMTkpUOhB9D xiA9cOxRsYFThHAZxX1ZxpU IuXKphE991KTcoNjR3ZGIeu iXjS4Ny ONKfiCngIcO5l3T7Lr1HWU1 vfKK0B9IpGky8DWWkrQniCT 3fwFOsGSugSv9xxUokuExmF P1pVVVv ljtlVOUtwJ8mBRRqfDSxjRv tOP6oRVSzxfgxr268XgCfLV G0JVFcxVFsK7IsjV0aDbYkQ DAwMDAw X8BdvHFvUWjcY460GBboLsN 8HEMpxdQhZ7LaEYTstJwxGt Q5k9D3Xf8TkZNlWEFbQV75M Q27BU12 X2MhQagsjAZppGE+PHRhYmx lIHdpZHRoPScxMDAlJyBzdH jkZL0ySl4eBJWmGLYawKehm HNlOiBj o0wgZELlIYurBW6tlSuuV8Y tkGY9YKIto7v4Ls71H60bF5 JvdXA+CKMccLX4vNF9iZ6kZ zAlIiB2 UIhtE092RvJpqHRwQcmfz0g rq2xfeGi8UuKgUOKysiBmzI gxSGB3m3PoCi34T32eYMsqP HRoPSIy WGAdYEPwjKklwe8hsF6bLl1 +YPWqdTC6gSE1oH1qOuMrBt D4SZdfB126YrRhqWFoEtoqU 05nY7Px dXA+EDXlQee9BVDpvZzsLO3 vxLCtDVtdPi7mYPK3SvZqQs XmZRgyN6AlJFIetbdbfebya RZ4PHFk NVVszN20Ng0ogIhgQj0mITR hZKQ3GWInqCRtL7QqxG3jNx LwQJNoLLHjH3MsmPIaZYbbY 246IGxl MsO0RIQhdqVdA7DgWJRzzWz oBrB8e2T8Kx3GjMsmyKFmEY 6gHqFyLJl5Q0GpCvr7OXNcj SrcYL5y dHKhJLtrVw9llCvpkWagOA3 xGYJedmcjg673IkHhj3gaIG SgpHOhCYmjETB3Y29xv8L0U CMwMDAw RRA0eBC8oJ7rhUgxtgphfZS mdDsgdmVydGljYWwtYWxpZ2 83OCIxmKutVoUJCtl0W2NbY ac6ZVXh dKgtIJ5ufWPsXVigSi7wfAa tmTrlPK4iIBQbjqcaa987Rb Dzi5wkMQBmjYHnOZznODV9I 39hn9O4 NUFpCDXsQBR2rEU4fH7ttUf nbjogbGVmdDsgdmVydGljYW ajNIabC592MQOymHszCr2IA fo8P7Rb Zcr4EZEfcXntPX2scBFbGNc wKn2ggFtwdGpsSG5rQOSvfm nwj666GpAwb6pzVXQhrKPfA GltZXM7 E11da4R5OYLfIAXyRIS2nXV 8nC6wcLexxyorgJAiaJfmww HckGfjIRbcSUnsG568PEGhg DsnPlBh eWVyOjwvdGQ+BF38wk35F1V tKitbMow4QJDzFQA9rSD6vK 4fVEVaKCnjr8O9wUZ3E3Vfx bViie8x b2xs (more content not included)... Normal [facility] XR Ankle 3+ Views Lefton XR [...] M.D. Transcribed by: JENN Technologist: STEVEN Normal [facility] Consent for Treatmenton Consent for Treatment [id number] D:127 Normal [facility] Physician Orderon 04-03-2022 Physician Order [id number] CD:127 Normal [facility] XR ANKLE LT MIN 3 Von [...] of the ankle. Electronically authenticated by: MARQUIS EHNSON Date: 2022-03-11 16:04 [facility] PAP ACOG PANEL 2: 23 to 31on 10-24-2021 . . Normal [facility] Comment on above: Performed By: #### [id number] #### [facility] [address] [place] [address] Dr. Aura Griffiths Age Gdln ACOG Testing - [facility] Comment on above: Performed By: #### [id number] #### [facility] [address] [address] [address] Aura Griffiths DIAGNOSIS: Comment Normal [facility] Comment on above: Result Comment: NEGA TIVE FOR INTRAEPITHELIAL LESION OR MALIGNANCY. Performed By: #### [id number] #### [facility] [address] [place] [address] Dr. Aura Griffiths Methodology: Comment Normal [facility] Comment on above: Result Comment: This liquid based ThinPrep(R) pap test was screened with the use of an image guided system. Performed By: #### [id number] #### [facility] [address] [place] [address] Dr. Aura Griffiths Note: Comment Normal [facility] Comment on above: Result Comment: The Pap smear is a screening test designed to aid in the detection of premalignant and malignant conditions of the uterine cervix. It is not a diagnostic procedure and should not be used as the sole means of detecting cervical cancer. Both false-positive and false-negative reports do occur. . Performed By: #### [id number] #### [facility] [address] [place] [address] Dr. Aura Griffiths Performed by: Comment Normal [facility] Comment on above: Result Comment: Radha Trevino, Student Counselor (ASCP) Performed By: #### [id number] #### [facility] [address] [place] [address] Dr. Aura Griffiths Reflex Criteria: Comment Normal [facility] Comment on above: Result Comment: The HPV DNA reflex criteria were not met with this specimen result therefore, no HPV testing was performed. . Performed By: #### [id number] #### [facility] [address] [place] [address] Dr. Aura Griffiths Specimen adequacy: Comment Normal [facility] Comment on above: Result Comment: Sati sfactory for evaluation. Endocervical and/or squamous metaplastic cells (endocervical component) are present. Performed By: #### [id number] #### [facility] [address] [place] [address] Dr. Aura Griffiths Encounters Encounter Date Encounter [...] Facility:[facility] Payers Date Payer Category Payer Unknown [id number] 1997 Unknown [id number] 2.16.84 [id number] 1997 Unknown [id number] 2.16.84 [id number] 1997 Unknown [id number] 2.16.84 [id number] 1997 Unknown [id number] 2.16.84 [id number] 1997 Unknown [id number] 2.16.840 .[id number] 1997 Unknown [id number] [id number]. [id number] 1959 Private Health Insurance [id number] 1959 Unknown [id number] Summary Purpose Family History No Family History Records FoundNo Family History Records FoundNo Family History Records Found Advance Directives No Advanced Directives Records FoundNo Advanced Directives Records FoundNo Advanced Directives Records Found Additional Source Comments INFORMATION SOURCE (unrecogn ized section and content) DATE CREATED AUTHOR 04/05/2022 [facility] DATE CREATED AUTHOR AUTHOR'S ORGANIZ ATION 04/08/2022 [facility] DATE CREATED AUTHOR AUTHOR'S ORGANIZ ATION 05/18/2024 [facility] EPIC FOR RECORDS PERTAINING [...] BE BASED ON THE PRIMARY CLINICAL RECORDS. [facility] [employer] [facility]. provides no warranty or guarantee of the accuracy or completeness of information in this document.
[2024-05-30 09:36] LABS: Basophils Percent Auto 0.4 % (0.2-2.0); Eosinophils Absolute Auto 0.1 10^3/uL (0.0-0.7); Eosinophils Percent Auto 1.1 % (0.9-7.0); Hematocrit 39.3 % (36.0-48.0); Hemoglobin 12.8 g/dL (12.0-16.0); Immature Granulocytes Abs Auto 0.02 10^3/uL (0.00-0.03); Immature Granulocytes Pct Auto 0.3 % (0.0-0.5); Lymphocytes Absolute Auto 1.6 10^3/uL (1.2-3.8); Lymphocytes Percent Auto 21.5 % (20.5-60.0); Mean Corpuscular HGB Conc 32.6 g/dL (29.9-35.2); Mean Corpuscular Hemoglobin 26.8 pg (26.7-34.0); Mean Corpuscular Volume 82.2 fL (81.0-99.0); Mean Platelet Volume 9.2 fL (9.5-13.5); Monocytes Absolute Auto 0.4 10^3/uL (0.3-0.8); Monocytes Percent Auto 5.1 % (1.7-12.0); Neutrophils Absolute Auto 5.3 10^3/uL (1.4-6.5); Neutrophils Percent Auto 71.6 % (43.0-75.0); Platelet Count 324 10^3/uL (150-450); Red Blood Count 4.78 10^6/uL (4.20-5.40); Red Cell Distribution Width 14.2 % (11.0-15.0); White Blood Count 7.4 10^3/uL (4.0-11.0)
[2024-05-30 09:51] LABS: Cannabinoid Screen Urine NEGATIVE (NEGATIVE); Phencyclidine Screen Urine NEGATIVE (NEGATIVE)
[2024-05-30 09:52] LABS: Amphetamine Screen Urine NEGATIVE (NEGATIVE); Barbiturates Screen Urine NEGATIVE (NEGATIVE); Benzodiazepines Screen Urine NEGATIVE (NEGATIVE); Buprenorphine Screen Urine NEGATIVE (NEGATIVE); Cocaine Screen Urine NEGATIVE (NEGATIVE); Methadone Screen Urine NEGATIVE (NEGATIVE); Methamphetamines Screen Urine NEGATIVE (NEGATIVE); Opiate Screen Urine NEGATIVE (NEGATIVE); Oxycodone Screen Urine NEGATIVE (NEGATIVE); Tricyclic Antidepressant Urine NEGATIVE (NEGATIVE)
[2024-05-30 09:57] LABS: Estimated Average Glucose 100 mg/dL; Glycohemoglobin A1C 5.1 % (4.5-6.2)
[2024-05-31 06:09] LABS: HBsAg Screen Negative (Negative); HCV Ab Non Reactive (Non Reactive); HIV Ab/p24 Ag Screen Non Reactive (Non Reactive); Rubella Antibodies, IgG 1.75 index (Immune >0.99)
[2024-05-31 10:08] LABS: Rapid Plasma Reagin, Quant Non Reactive titer (NonRea<1:1)
[2024-06-03 11:16] LABS: BOX Test Reference Lab UNITY; BOX Test Sent Out UNITY
== END 2024-05-30 08:54 | disposition home or self-care (01) ==
LOC: LAB 08:54
PROVIDERS: Visit Provider Obstetrics & Gynecology
DX: Z34.01 Encounter for supervision of normal first pregnancy, first trimester (principal); Z36.0 Encounter for antenatal screening for chromosomal anomalies; N92.6 Irregular menstruation, unspecified
CPT/HCPCS: 36415; 80307; 83036; 85025; 86592; 86762; 86803; 86850; 86900; 86901; 87086; 87150; 87186; 87340; 87389

== ENCOUNTER 2024-07-30 10:05 | Outpatient (OUT) | payer BC, SELFPAY ==
--- OUTSIDE RECORDS SUMMARY | 2024-07-30 10:19 | XMS_ITS | CCD ---
Author Organization [facility] Care Team Providers Care Microbiology Lab Technician Name Role Phone DR CARRIE PAYAN Primary Care Unavailable ANGÉLICA NARAYANAN Attending Unavailable ANGÉLICA NARAYANAN Consulting Unavailable ANGÉLICA NARAYANAN Admitting Unavailable MARQUIS HENSON Consulting Unavailable DR CARRIE PAYAN Consulting Unavailable DR CARRIE PAYAN Primary Care Unavailable DR CARRIE PAYAN Admitting Unavailable DR CARRIE PAYAN Attending Unavailable Karla Ortega MD Primary Care Provider CARRIE PAYAN Attending Unavailable KARLA BURNS Attending Unavailable CARRIE PAYAN Attending Unavailable CARRIE PAYAN Attending Unavailable Medications Current Medications Medication Drug Class(es) Dates Sig (Normalized) Sig (Original) metoclopramide 5 mg oral tablet (6 sources) Dopamine-2 Receptor Antagonist metoclopramide (Reglan) 5 MG tablet Take 5 mg by mouth in the morning and 5 mg at noon and 5 mg in the evening and 5 mg before bedtime. Active Completed/Discontinued Medications Medication Drug Class(es) Dates Sig (Normalized) Sig (Original) nitrofurantoin, macrocrystals 25 mg / nitrofurantoin, monohydrate 75 mg oral capsule (3 sources) Nitrofuran Antibacterial Start: 06-10-2024 End: 06-17-2024 take 1 capsule by mouth in the morning nitrofurantoin, macrocrystal-monohydr ate, (Macrobid) 100 MG capsule Indications: Staphylococcus aureus infection Take 1 capsule (100 mg) by mouth in the morning and 1 capsule (100 mg) before bedtime. Do all this for 7 days. 14 capsule 06/10/2024 06/17/2024 Discontinued omeprazole 20 mg delayed release oral capsule (3 sources) Proton Pump Inhibitor Start: 05-16-2024 End: 06-17-2024 take 1 capsule by mouth before mealtime omeprazole (PriLOSEC) [address] capsule Indications: Gastroesophageal Reflux Disease , Heartburn Take 1 capsule (20 mg) by mouth in the morning. Take before meals. Do not crush or chew.. 30 capsule 3 05/16/2024 06/17/2024 Discontinued ondansetron 4 mg disintegrating oral tablet (2 sources) Serotonin-3 Receptor Antagonist Start: 05-16-2024 End: 06-17-2024 take 1 tablet by mouth every six hours for nausea ondansetron ODT (Zofran-ODT) 4 MG disintegrating tablet Indications: Missed menses Take 1 tablet (4 mg) by mouth every 6 (six) hours if needed for nausea or vomiting 30 tablet 2 05/16/2024 06/17/2024 Discontinued Problems Problem Classification Problem Date Documented Date Episodic/Chronic Diabetes or abnormal glucose tolerance complicating ; childbirth; or the puerperium (2 sources) History of gestational diabetes mellitus; Translations: [Personal history of gestational diabetes] 07-17-2024 Episodic E Codes: Fall (1 source) Fall (on) (from) unspecified stairs and steps, initial encounter; Translations: [FALL ON FROM UNS STAIRS STEPS INIT] Onset: 03-13-2022 Episodic Immunizations and screening for infectious disease (2 sources) Exposure to sexually transmissible disorder; Translations: [Contact with and (suspected) exposure to infections with a predominantly sexual mode of transmission] 07-17-2024 Episodic Other connective tissue disease (3 sources) Pain in left foot; Translations: [PAIN IN LEFT FOOT] Onset: 03-11-2022 Episodic Other female genital disorders (2 sources) Vaginal discharge; Translations: [Other specified noninflammatory disorders of vagina] 07-17-2024 Episodic Other and delivery including normal (4 sources) Second trimester ; Translations: [Encounter for supervision of normal , unspecified, second trimester] 06-17-2024 Episodic Other screening for suspected conditions (not mental disorders or infectious disease) (6 sources) Encounter for screening for malignant neoplasm of cervix; Translations: [Patient encounter status] Onset: 10-18-2021 Episodic Residual codes; unclassified (2 sources) Gestation period, 13 weeks; Translations: [13 weeks gestation of ] 06-17-2024 Episodic Residual codes; unclassified (2 sources) Gestation period, 17 weeks; Translations: [17 weeks gestation of ] 07-17-2024 Episodic Sprains and strains (1 source) Sprain of unspecified ligament of left ankle, initial encounter; Translations: [SPRAIN UNS LIGAMENT LT ANKLE INIT] Onset: 03-13-2022 Episodic Results Test Name Value Interpretation Reference Range Facility RECURRENT VAGINITIS (HTRX)on 07-18-2024 ATOPOBIUM VAGINAE 21.066 Abnormal [facility]thcare ATOPOBIUM VAGINAE Detected Abnormal [facility] BVAB 2,3 (BACTERIAL VAGINOSIS ASSOCIATED BACTERIA 2, 3); MOBILUNCUS SPP 20.228 Abnormal [facility] BVAB 2,3 (BACTERIAL VAGINOSIS ASSOCIATED BACTERIA 2, 3); MOBILUNCUS SPP Detected Abnormal [facility] BLANCA ALBICANS, PARAPSILOSIS, TROPICALIS 0 [facility] BLANCA ALBICANS, PARAPSILOSIS, TROPICALIS Not detected [facility] BLANCA GLABRATA 0 [facility] lthcare BLANCA GLABRATA Not detected [facility] ealthcare BLANCA KRUSEI 0 [facility] hca BLANCA KRUSEI Not detected [facility]care CHLAMYDIA TRACHOMATIS 0 [facility] CHLAMYDIA TRACHOMATIS Not detected [facility] ERMB, C; MEFA 26.225 Abnormal [facility] ERMB, C; MEFA Detected Abnormal [facility] GARDNERELLA VAGINALIS 21.744 Abnormal [facility] GARDNERELLA VAGINALIS Detected Abnormal [facility] Interpretation and review of laboratory results Abnormal [facility] MEGASPHAERA (TYPES 1, 2) 0 [facility] MEGASPHAERA (TYPES 1, 2) Not detected [facility] MYCOPLASMA GENITALIUM 0 [facility] MYCOPLASMA GENITALIUM Not detected [facility] NEISSERIA GONORRHOEAE 0 [facility] NEISSERIA GONORRHOEAE Not detected [facility] TET B, TET M 24.757 [facility], TET M [facility] are TRICHOMONAS VAGINALIS 0 [facility] TRICHOMONAS VAGINALIS Not detected [facility] Urinalysis macro (dipstick) panel (U)on 07-17-2024 Bilirubin, UA Negative Negative - 4(70) +++ mg/dL [facility] Blood, UA Negative Negative - 50 Roberto/mcL [facility] Clarity, UA Clear [facility] Healthca re Color, UA Yellow [facility] Healthcar e Glucose, UA Negative Negative - 1999(110) ++++ mg/dL [facility] Interpretation and review of laboratory results Abnormal [facility] Ketones, UA Positive Negative - 160(16) ++++ mg/dL [facility] Leukocytes, UA Trace Negative - 500+++ Christian/mcL [facility] Nitrite, UA Negative Negative - Positive [facility] pH, UA 5.5 5 - 9 [facility] Protein, UA Trace Negative - 1999(20) ++++ mg/dL [facility] Spec Grav, UA 1.03 1 - 1.03 [facility] Urobilinogen, UA 0.2 0.2 - 12 mg/dL [facility] Urinalysis macro (dipstick) panel (U)on 06-17-2024 Bilirubin, UA Negative Negative - 4(70) +++ mg/dL [facility] Blood, UA Negative Negative - 50 Roberto/mcL [facility] Clarity, UA Clear [facility] re Color, UA Yellow [facility] e Glucose, UA Negative Negative - 1999(110) ++++ mg/dL [facility] Interpretation and review of laboratory results Abnormal [facility] Ketones, UA Negative Negative - 160(16) ++++ mg/dL [facility] Leukocytes, UA Negative Negative - 500+++ Christian/mcL [facility] Nitrite, UA Negative Negative - Positive [facility] pH, UA 6 5 - 9 [facility] Healthcar e Protein, UA Positive Negative - 1999(20) ++++ mg/dL [facility] Comment on above: 100 Spec Grav, UA 1.03 1 - 1.03 [facility] Urobilinogen, UA 0.2 0.2 - 12 mg/dL [facility] Coding Summary.on 04-07-2022 Coding Summary. CD:[id number] G h0bWw+PGhlYWQ+XP6FWCX eY98syROzzE7SH8nNDL1Y VVIBRUUAEX0ZLD7ziDR6C ZtnV5HlvxFf UicciJWfYL79FSi3MPU5d NyvYIyszE5esGGbF3c2Gi IlIS15hU30BOevNJMcDfC 3LjZpbjsgbWFy Z2zvHnRdgIQsZgz+PHRhY mxlIHdpZHRoPScxMDAlJy DhxGpfAB2vFl3vNZXgMMS vbGxhcHNlOiBj a4mqGQRhBMbyZP5ltQrvS 4AxgLS8JBLzj6j3Kk35uT I+DNZjNXH6uIxjFFmvz44 3LvNyf9umHHC2 rSNmCEfkFOJ8R93oo7H2R CJkVDHlJJA9jLA0sJ7hbO rrokfbX4ZhnSFwGbA0GHF 3tWAtgA6grDyc eiowaV3lYsw+M54HMW6KI NZQQT0VDlq8S6VkDilqcJ I+FQ76KPZkQF66kFVvsIS dp0hmaSa4HaXp MAHvNNS5jAdqRRxge3YtA THiY52wjQOoy7T6YBKanJ eyqHSwOvVyoUY9nI2oRAg vldzpm7whkhog Avqso0jjov83vK04L15dV HqjCKBdHGD1QEWjIOAtwI gpkj3zwU2lEg6+CWzle0o ta8kjjEv1KmRe DGOvnfYrsMzcHAO4h6DqH i88C5YrhClcn5IiUmn9db 74fTPyy4A2zBD9NCjfCFM vfZ4cOCagSyU0 RFFiWpIqfV31hTRwWAnkO l9kxVxapJttXZ5kUOZyvz cbWDIqlF0lMDItrSCmePa pMV4oUWYjltuu u078FmDsFGY6EYJikRKzN 6UciF7yFdMlYRBlMENnX4 TyiEBiBQnpO109XMoqSaB 1AIBomfHlE9Gz BGZptNckVnB5o6F6Rj1Wx 3NescbtGUB2SRbcOSN5Ed Q1VeMgYnP8L8RjArk2SNO taMjzFL2mA8Th NJPzadmsxzdtmPB9NULzC YHarN58jLDcOCjlGv3hs2 I6s681VIJfHFCucS84Bm5 udDogMTBwdCBU iS8amjlhe6gxsawhTxEhH PZlQVz8QNm2FUPooPlsWt LnLRJ6AgM4PLV7sLSttS2 yrKbpltleuG3y Oyc+X83loP7uSCU8DRA5b tpdXHXekiVfWI04TX73P7 RyPjwvdGFibGU+PGRpdiB anJaxYU4tUiWv v6rwd7MhSJvjG8OmCAMuN RfdZww0AZSpEBS6qBR4cV 2dJSLpPZosp7J2tMO9E7B ufpCeax2eq4yh HBJcWAxhD77zpXEfh1W0I HZsoTZ5HHCdxRgwXuPeeL 93Oyc+JNDpvSozq0WuYkt vq2vnb4lzyXh4 YsAvHKSvwcZxxPoiCKB8m 9KcUm92P76uSHtxLGMzLK FaSUUoFXMqwLdnyr9vcZ8 wIi8+PGNvbCB3 jWP3tI7sVIEjYbI4SBpbA 363KcDlfVViLybrp8pvz6 zseXh2JwSkCIKdlfMhhMc nOYW6l3XqEn18 W80xIAljDZXjVFGzBLBjK INqjXqtxw6qwE7lUb3+PC 3ix0oayn18aV37uWA+PHR gOCC9qBqtRXsq KAMmaR9rJPuzEuJ7RMMaN sCyxU60cXNkGXlfIo8pxF kdqTuhTN1uREYrmepcl74 2ZtMjw6gxRQDr bQRaZKsiMAT1S00mh7O5C UInTGNhICQ7iRX8cP7iiZ lnbjogbGVmdDsgdmVydGl iETatDSpnV017 IHRvcDsnPlBhdGllbnQgT lFbSYo2Q0RzHtw0DRYzzO nmZW1ysJVcEVtbXz5tsQl icVtkZE4nHLRd fnpkv810OsQun7kuRNGqw XOhATnySBN5F92os6S2FQ EmZANoMAG1eIU0mW2oyGx nbjogbGVmdDsg uvAxuLcvYDhpQQpbH948N HRvcDsnPkJpcnRoIERhdG U9ZF42CW63sVTvf4H8wQI 9J5LpQUKaobrz ztusbRQ4XUMbBHAvxO70Y n8bqKalVv9rSUFfQGO7OU JupVRfN5YcjU6vIyMjATD eVGFgO3LkzRZg UEwyU350SDccJnX6AIOmv aDqW1SfUJRogZfmEuR6b3 N7Jt8UO4O9OU36LP43aMU bq0L4iWL0N7Aw NWZuanjqxqxpqJQ3QWMoV KIboR13Jm1gwFjyPw4yOO IhUQR2LNZqcWBgK5LyvF6 yOiAjMDAwMDAw P3TcjQOyMKseR567WOrdT rS1EGPzgoTgC1JxUQSvjA qgGvI1e3L1Rc1MWEm7XF6 3QK48cEReu9Z0 zHW8A5WqEBSibogqbnteg BW8FDApWGBttN28Il0ciK qoXi6kARZpELA2MRRewEJ zY3PudJ9oBkLi IFYlFNJyU9QjbAJaDJoaB 971KHyvKuZ9ZSQzwsIhO6 EsWJVcgWwdMfZ4l1V7Wr2 HOAJwMF76OIK1 aLD4CU35NM67L6BwJnhdi GFibGU+PHRhYmxlIHdpZH RoPScxMDAlJyBzdHlsZT0 kXf2sPZCqYDLg hKvujBRkBnLvp2ytOZDnQ RcvLD6dhRieZ2CymUO9BJ Ukm9d3Ln27P85jX0JcjON +ZIDiuFD6zQS7 pW1xGpOhNaJ4CHxfS126P hWlgWErVauuy4yzo5hxdO q8YjZ0UBUszxObiUptJRE 0f4TfJy07B16e IHdpZHRoPSIxNSUiIHZhb Cnpbi2smM6tOt7+PGNvbC H0eKQ6uH7mCmGaBhM3SLu pZ616YrHnzXHe Vvncp4qkn2halVq4GyKoN AMqtxHbfGkfUGG4h5TiLg 91Q7VmzUhxr5RyWqi8nx4 3oLKlh6R3hOL9 O8OtZOFmzsposHIgyTicV T4vNWKeioodHSVdwB2jWL BhR1c1KqQqRgZ4VQudI9I sdxC0HPOgzVXl LEvqZPO8T91ym7J6ZNAmJ TZzFRA3uKX8nN2faUeipo ogbGVmdDsgdmVydGljYWw sPClmV581XPEr hYjtHBSgaC9sXQDnaTYeq CgtJE5sKUMayiacJaNPPA BQLCBIQUxFWSBOSUNPTEU 6H4TgHqv3FHCk jNswMP0pgCRpLFdmRa2ks EcaxFwcUU7dJDKhfdpbJR MscQ0gSHChhWIqnNanYN2 mZHMkglczj470 PdXyBTD1SHZdfMObL0Amd T8dJvIjWOUdHMOpQ9WheC WiBPtmW334PXizUmK6CPF vkbEwR9LoUKNx iDrcGeG3u1F0Dn0qOI2pH M8tKRb1EL05NC82xKUbx3 Z1sEO1X1OuWSJxzsozyxz ibGI9WZNxVPFe rD47sRQmIJarCu1zx6J1l 781EZKqLTPpbL78Ar9cmO czPJMdsTYQfV8yvqfaq8r vcjogIzAwMDAw YBr5CVa5TVJrcAixOiIbT XT4YqE4GUV7gFKllL7wpB cgymlziF1gVdq+MjQgWWV yalI7Q7OkLcj3 URAjvKmvJR5bfLQbLNqxH i1jpPimgOrbAB1aIQYhmz emDKChvQ5eZPRphUCbaHp kRN6hNIYjyydt l969YeGjEZC7CHSujLHfF 0MzfY1zNtEwUTUsVACdH4 EgvMEoMNqcU936HSbaAqM 8CYOmknJvY4Zi FALrbAiyDiE5i5E9Gb6CB S3tlWN2O4EoJcz0TLLzvR ljWC8lgHPyFNowNt9zaBy edIxcTW5xPQHb agurJCVysL2wAUKrwLUtu JelOU3kUIYurhqso015Ee IoIJE0YBYwwLQjB2NdkZ2 yOiAjMDAwMDAw E5KgjTAuHWptG562OAxfE fM0HMOdzkSqD4XzDFYhqQ frWsL5l0M4Lj8DyXLqPYJ wGF29OQ21GU67 B8SmBzisxKGlnKC+PHRhY mxlIHdpZHRoPScxMDAlJy FtsQauSQ4xGa8kUUCgZMQ vbGxhcHNlOiBj m6ksOAMaLEalKB9gqMpjD 5QdiPH9KIMao0i2Wq13H4 9jA3PtzOA+RPGiyMI7cYL 3rI4dUeDsLyE2 CNxgX360KwUewXJuSxdqx 1ltg0zuhXz7IkCjSVJcay KovGjwGNY0u3DeFo45P71 sIHdpZHRoPSIy CRNfYWMwlHgcsp7yiX5wY i8+EHGsqFX7tJV6uQ2wMj MfRrN8SEvoK888NoNlhFJ lCfyiH90iT8No dXA+GXCeLrs2DGJubUwkB D1raJNsUUwfQc1aLHQ7Ze FxDlBtDSssU9SxSIKruuj frrkhmAQ3DUEi HPZetM32Jz2luQbxZw0tZ REhDLU4VHDwuJQhY0DnxT 0lDsMmDLFvJEIoZ5IzeUW wPSniJ083JNvu FuK0CPDfarFlZ8PwCCQvi OqaCaE4m0P9Xp3XfGcjiE RxZY1zPgTfZHu7C4GcNvs 7FBJrwHylLW8l lLVvGFbmWo2giVqzwJbmO I0pSZRqihrou722ZaJrq8 deLFGfiNWaDPalNWX7Y56 oa3I9ZMVnNNVa LPG8aPH7wX3edQdezqygi GVmdDsgdmVydGljYWwtYW zjQ680YYHpeNmhXxCYTif 2V1GbMyp5PXQy iCapDK5aqOCxXFiuKk5ky XvljVtdBE7bIEVyrergr6 61HyHng9efBOGgeKRhGMu fBKV4X93ng9Y6 ECJyIPStVHP9lFX1wT6hf GlnbjogbGVmdDsgdmVydG ttVBxaMKbxP132WSOmoQx zTq4ESlv8Q8Pv Hqi2DGLxxCezAW3lxJYfV SbfCr7fiNsvoMioWV3tPF Wljtstk611FsEqx6zxNOD wcHQgVGltZXM7 M28zb6G9ZJZcAFYlJWR7o ZA8aD9frDyhezbarXYqgD uhdqCbiWknBQybSJhxL34 6IHRvcDsnPlBh eWVyOjwvdGQ+YL14oq20R 6KdCkfkOhx0KKJbKUQ3vG D9aI5xKFWdGKndn6T4gRP 2L1BsrhUppn6v b2xs (more content not included)... Normal [facility] XR Ankle 3+ Views Lefton XR [...] Howell M.D. Transcribed by: JENN Technologist: STEVEN Sena [facility] Consent for Treatmenton Consent for Treatment [id number]:127 Normal [facility] Physician Orderon 04-03-2022 Physician Order [id number] 1.00CD:127 Normal [facility] XR ANKLE LT MIN 3 Von 2021 XR ANKLE LT MIN 3 V EXAM: XR ANKLE LT AR N 3 V, XR FOOT LT MIN 3 [...] by: MARQUIS HENSON Date: 2022-03-11 16:04 Normal [facility] PAP ACOG PANEL 2: 21 to 29on 10-24-2021 . . Normal [facility] Comment on above: Performed By: #### [id number] #### [facility] [address] [place] [address] Dr. Aura Griffiths Age Gdln ACOG Testing - Normal [facility] Comment on above: Performed By: #### [id number] #### [facility] [address] [address] [address] Aura Griffiths DIAGNOSIS: Comment [facility] Comment on above: Result Comment: NEGA TIVE FOR INTRAEPITHELIAL LESION OR MALIGNANCY. Performed By: #### [id number] #### [facility] [address] [place] [address] Dr. Aura Griffiths Methodology: Comment Normal [facility] Comment on above: Result Comment: This liquid based ThinPrep(R) pap test was screened with the use of an image guided system. Performed By: #### [id number] #### [facility] [address] [place] [address] Dr. Aura Griffiths Note: Comment Normal [facility] Comment on above: Result Comment: The Pap smear is a screening test designed to aid in the detection of premalignant and malignant conditions of the uterine cervix. It is not a diagnostic procedure and should not be used as the sole means of detecting cervical cancer. Both false-positive and false-negative reports do occur. . Performed By: #### [id number] #### [facility] [address] [place] [address] Dr. Aura Griffiths Performed by: Comment Normal [facility] Comment on above: Result Comment: Radha Trevino, Hand Bobbin Cleaner (ASCP) Performed By: #### [id number] #### [facility] [address] [place] [address] Dr. Aura Griffiths Reflex Criteria: Comment Normal [facility] Comment on above: Result Comment: The HPV DNA reflex criteria were not met with this specimen result therefore, no HPV testing was performed. . Performed By: #### [id number] #### [facility] [address] [place] [address] Dr. Aura Griffiths Specimen adequacy: Comment Normal [facility] Comment on above: Result Comment: Sati sfactory for evaluation. Endocervical and/or squamous metaplastic cells (endocervical component) are present. Performed By: #### [id number] #### [facility] [address] [place] [address] Dr. Aura Griffiths Vital Signs Date Time Vital Sign Value Performing Clinician Faci lity 07-17-2024 10:48-0500 Body mass index (BMI) [Ratio] 45.28 kg/m2 Carrie Ora DO Work Phone: [facility] 07-17-2024 10:48-0500 Body weight 119.66 kg Carrie Ora DO Work Phone: [facility] 07-17-2024 10:48-0500 Diastolic blood pressure 70 mm[Hg] Carrie Ora DO Work Phone: [facility] 07-17-2024 10:48-0500 Systolic blood pressure 120 mm[Hg] Carrie Ora DO Work Phone: [facility] 06-17-2024 10:48-0400 Body mass index (BMI) [Ratio] 44.99 kg/m2 Carrie Ora DO Work Phone: [facility] 06-17-2024 10:48-0400 Body weight 118.9 kg Carrie Ora DO Work Phone: [facility] 06-17-2024 10:48-0400 Diastolic blood pressure 70 mm[Hg] Carrie Ora DO Work Phone: [facility] 06-17-2024 10:48-0400 Systolic blood pressure 120 mm[Hg] Carrie Ora DO Work Phone: [facility] Healthcare Encounters Encounter Date Encounter Type Care Provider Facility Start: 07-17-2024 End: 07-17-2024 Bamboo flowsheet Carrie Ora DO Work Phone: [facility] Start: 07-17-2024 End: 07-18-2024 Bamboo flowsheet Carrie Ora DO Work Phone: [facility] Start: 07-17-2024 End: 07-18-2024 External Result Encounter Carrie Ora DO Work Phone: [facility] External Department Unsolicited Start: 07-17-2024 End: 07-17-2024 flow sheet Carrie Ora DO Work Phone: [facility] Comment on above: 17 weeks gestation o f ; Second trimester ; Exposure to STD; Vaginal discharge; Screening, , for anatomic survey; History of gestational diabetes Start: 07-17-2024 End: 07-17-2024 ambulatory CARRIE PAYAN Not Available Start: 06-17-2024 End: 06-17-2024 Bamboo flowsheet Carrie Ora DO Work Phone: [facility] Start: 06-17-2024 End: 06-17-2024 Bamboo flowsheet Carrie Ora DO Work Phone: [facility] Start: 06-17-2024 End: 06-17-2024 flow sheet Carrie Ora DO Work Phone: [facility] Comment on above: 13 weeks gestation o f ; Second trimester Start: 06-17-2024 End: 06-17-2024 ambulatory CARRIE ORA Not Available Start: 05-16-2024 End: 05-16-2024 ambulatory CARRIE PAYAN Not Available Start: 04-07-2024 End: 04-07-2024 ambulatory KARLA GRANT Not Available Start: 08-01-2023 End: 08-01-2023 ambulatory CARRIE ORA Not Available Start: 03-11-2022 End: 03-11-[address] CARRIE PAYAN Facility:[facility] Start: 10-18-2021 End: 10-18-[address] CARRIE PAYAN Facility:[facility] Procedures Date Procedure Procedure Detail Performing Clinician Start: 07-17-2024 RECURRENT VAGINITIS (HTRX) Carrie Ora DO Work Phone: Start: 07-17-2024 Urnls dip stick/tabl et rgnt non-auto w/o micrscp Carrie Ora DO Work Phone: Start: 06-17-2024 Urnls dip stick/tabl et rgnt non-auto w/o micrscp Carrie Ora DO Work Phone: Plan of Treatment Date Care Activity Detail Author Start: 08-14-2024 End: 08-14-2024 Patient encounter procedure 08/14/2024 10:40 AM EST Routine [facility] [address] [place] [address] Carrie Payan, DO [address] [place] [address] [facility] Start: 08-07-2024 End: 08-07-2024 Professional / ancillary services management 08/07/2024 8:30 AM EST Ancillary Procedure [facility] [address] [facility] [place] [id number] [facility] Start: 07-17-2024 End: 09-16-2024 Alpha fetoprotein, maternal Alpha fetoprotein, maternal Lab Routine Second trimester Expected: 07/17/2024 (Approximate), Expires: 09/16/2024 [facility] Healthcare Comment on above: Expected: 07/17/2024 (Approximate), Expires: 09/16/2024 Start: 07-17-2024 End: 07-17-2025 Measurement of glucose 1 hour after glucose challenge for glucose tolerance test GTT, 1 hour Lab Routine History of gestational diabetes Expected: 07/17/2024 (Approximate), Expires: 07/17/2025 [facility] Comment on above: Expected: 07/17/2024 (Approximate), Expires: 07/17/2025 Start: 07-17-2024 End: 07-17-2025 US for US OB ANATOMY SINGLE W US OB CERVICAL LENGTH Imaging Routine Screening, , for anatomic survey Expected: 07/17/2024 (Approximate), Expires: 07/17/2025 [facility] Comment on above: Expected: 07/17/2024 (Approximate), Expires: 07/17/2025 Start: 07-15-2024 End: 07-15-2024 Patient encounter procedure 07/15/2024 10:50 AM EST Routine [facility] [address] [place] [id number] Carrie Payan, DO [address] [place] [address] [facility] Start: 06-17-2024 End: 06-17-2024 Patient encounter procedure 06/17/2024 10:20 AM EDT Routine [facility] [address] [place] [address] Carrie Payan DO [address] [place] [address] Arrived [facility] Comment on above: Arrived CHLAMYDIA TRACHOMATI S (GENITO/STI) CHLAMYDIA TRACHOMATIS (GENITO/STI) Lab Routine Exposure to STD Ordered: 07/17/2024 [facility] Comment on above: Ordered: 07/17/2024 Neisseria gonorrhoea e DNA [Presence] in Unspecified specimen by XIOMARA with probe detection Neisseria gonorrhea DNA probe, direct Lab Routine Exposure to STD Ordered: 07/17/2024 [facility] Comment on above: Ordered: 07/17/2024 SURESWAB(R) ADVANCED VAGINITIS PLUS, TMA SURESWAB(R) ADVANCED VAGINITIS PLUS, TMA Pathology and Cytology Routine Vaginal discharge Ordered: 07/17/2024 [facility] Work Phone: Comment on above: Ordered: 07/17/2024 Payers Date Payer Category Payer [facility] [id number] 2023 Unknown [id number] 1997 Unknown [id number] [id number] 1997 Unknown [id number]. 593 1997 Unknown [id number] [id number]. 1259 1997 Unknown [id number]. 1259 1997 Unknown [id number] [id number]. 9 1997 Unknown [id number] [id number]. 9 1997 Unknown [id number]. 1259 1959 Private Health Insurance [id number] 1959 Unknown [id number] Social History Date Type Detail Facility Start: 07-31-2023 Tobacco smoking stat [facility] Never smoked tobacco [facility] Start: 07-31-2023 Tobacco use and exposure Smokeless t obacco non-user [facility] Start: 05-16-2024 End: 07-17-2024 Alcoholic beverage intake Lifetime non-drinker (finding) [facility] Start: 07-31-2023 History of Social function [facility] Start: 07-31-2023 Tobacco use panel [facility] Start: 03-28-2024 [facility] Start: 1995 Sex assigned at Female [facility] Start: 01-23-2023 Gender identity Identifies as female gender (finding) [facility] History of Present illness Narrative 07-17-2024 Kathleen Dickens LPN - 07/17/2024 10:30 AM EST Note Date & Type Note Facility 07-17-2024 History of Presen t illness Narrative Reason for Appointment: Patient ID: Olga Flanagan is a 28 y.o. female who presents for No chief complaint on file. Patient presents today for Return OB appointment. MEDICATIONS Current Outpatient Medications Medication Instructions metoclopramide (REGLAN) 5 mg, 4 times daily ALLERGIES No Known Allergies PROBLEMS Active Ambulatory Problems Diagnosis Date Noted No Active Ambulatory Problems Resolved Ambulatory Problems Diagnosis Date Noted No Resolved Ambulatory Problems Past Medical History: Diagnosis Date Depression screening Encounter for gynecological examination (general) (routine) without abnormal findings Family planning Insulin resistance Morbid obesity with BMI of 40.0-44.9, adult (CMS/[facility]) Negative test On Depo-Provera for contraception HISTORY PAST MEDICAL HISTORY SOCIAL HISTORY Past Medical History: Diagnosis Date Depression screening Encounter for gynecological examination (general) (routine) without abnormal findings Family planning Insulin resistance Morbid obesity with BMI of 40.0-44.9, adult (CMS/HCC) Negative test On Depo-Provera for contraception Social History Tobacco Use Smoking status: Never Smokeless tobacco: Never Substance Use Topics Alcohol use: Never Drug use: Never FAMILY HISTORY Family History Problem Relation Name Age of Onset Hypertension Maternal Grandmother Hyperlipidemia Maternal Grandmother Hypertension Paternal Grandmother Heart disease Paternal Grandfather Hypertension Paternal Grandfather SURGICAL HISTORY History reviewed. No pertinent surgical history. REVIEW OF SYSTEMS Review of Systems: Review of Systems All other systems reviewed and are negative. OBJECTIVE Objective: Physical Exam Constitutional: Appearance: Normal appearance. She is well-developed. Genitourinary: Vulva normal. Cardiovascular: Rate and Rhythm: Normal rate and regular rhythm. Pulmonary: Effort: Pulmonary effort is normal. Breath sounds: Normal breath sounds. Abdominal: General: Bowel sounds are normal. There is no distension. Palpations: Abdomen is soft. Tenderness: There is no abdominal tenderness. There is no guarding or rebound. Musculoskeletal: General: No swelling. Normal range of motion. Right lower leg: No edema. Left lower leg: No edema. Neurological: Mental Status: She is alert and oriented to person, place, and time. Skin: General: Skin is warm and dry. Psychiatric: Mood and Affect: Mood normal. Behavior: Behavior normal. Vitals and nursing note reviewed. Exam conducted with a piping drafter present. Vitals: Estimated body mass index is 45.28 kg/m as calculated from the following: Height as of 01/24/23: 5' 4 . Weight as of this encounter: 263 lb 12.8 oz. BP: 120/70 Patient's last menstrual period was 03/14/2024. ASSESSMENT & PLAN ICD-10-CM 1. 17 weeks gestation of Z3A.17 POCT urinalysis dipstick manually resulted 2. Second trimester Z34.92 POCT urinalysis dipstick manually resulted Alpha fetoprotein, maternal Alpha fetoprotein, maternal 3. Exposure to STD Z20.2 CHLAMYDIA TRACHOMATIS (GENITO/STI) Neisseria gonorrhea DNA probe, direct 4. Vaginal discharge N89.8 SURESWAB(R) ADVANCED VAGINITIS PLUS, TMA 5. Screening, , for anatomic survey Z36.89 US OB ANATOMY SINGLE W US OB CERVICAL LENGTH Patient presents today for a routine obstetrics appointment. Patient is currently 17w6d with a Estimated Date of Delivery: 12/19/24. Obtained routine STD cultures today. Patient to check into restrictions at work for possible decrease in hours. Patient will reach out to office when she gets details. Early 1 hour ordered due to history of GDM. Patient to return to clinic in 4 weeks. Tentative IOL on 12/13/23. Patient voiced she is not taking any medications daily at this time. Documented by Kathleen Dickens LPN on behalf of: Carrie Payan DO documented in this encounter [facility] History of Present illness Narrative 06-17-2024 Kathleen Dickens LPN - 06/17/2024 10:20 AM EDT Note Date & Type Note Facility 06-17-2024 History of Presen t illness Narrative Reason for Appointment: Patient ID: Olga Flanagan is a 28 y.o. female who presents for Routine Visit Patient presents today for Return OB appointment. MEDICATIONS No current outpatient medications ALLERGIES No Known Allergies PROBLEMS Active Ambulatory Problems Diagnosis Date Noted No Active Ambulatory Problems Resolved Ambulatory Problems Diagnosis Date Noted No Resolved Ambulatory Problems Past Medical History: Diagnosis Date Depression screening Encounter for gynecological examination (general) (routine) without abnormal findings Family planning Insulin resistance Morbid obesity with BMI of 40.0-44.9, adult ([facility]) Negative test On Depo-Provera for contraception HISTORY PAST MEDICAL HISTORY SOCIAL HISTORY Past Medical History: Diagnosis Date Depression screening Encounter for gynecological examination (general) (routine) without abnormal findings Family planning Insulin resistance Morbid obesity with BMI of 40.0-44.9, adult ([facility]) Negative test On Depo-Provera for contraception Social History Tobacco Use Smoking status: Never Smokeless tobacco: Never Substance Use Topics Alcohol use: Never Drug use: Never FAMILY HISTORY Family History Problem Relation Name Age of Onset Hypertension Maternal Grandmother Hyperlipidemia Maternal Grandmother Hypertension Paternal Grandmother Heart disease Paternal Grandfather Hypertension Paternal Grandfather SURGICAL HISTORY History reviewed. No pertinent surgical history. REVIEW OF SYSTEMS Review of Systems: Review of Systems All other systems reviewed and are negative. OBJECTIVE Objective: Physical Exam Constitutional: Appearance: Normal appearance. She is well-developed. Cardiovascular: Rate and Rhythm: Normal rate and regular rhythm. Pulmonary: Effort: Pulmonary effort is normal. Breath sounds: Normal breath sounds. Abdominal: General: Bowel sounds are normal. There is no distension. Palpations: Abdomen is soft. Tenderness: There is no abdominal tenderness. There is no guarding or rebound. Musculoskeletal: General: No swelling. Normal range of motion. Right lower leg: No edema. Left lower leg: No edema. Neurological: Mental Status: She is alert and oriented to person, place, and time. Skin: General: Skin is warm and dry. Psychiatric: Mood and Affect: Mood normal. Behavior: Behavior normal. Vitals and nursing note reviewed. Exam conducted with a piping drafter present. Vitals: Estimated body mass index is 44.99 kg/m as calculated from the following: Height as of 01/24/23: 5' 4 . Weight as of this encounter: 262 lb 1.9 oz. BP: 120/70 Patient's last menstrual period was 03/14/2024. ASSESSMENT & PLAN ICD-10-CM 1. 13 weeks gestation of Z3A.13 POCT urinalysis dipstick manually resulted 2. Second trimester Z34.92 POCT urinalysis dipstick manually resulted New OB: Patient presents today for 1st time obstetrics appointment with provider. Patient is currently 13w4d . Patients history has been reviewed in great detail including any potential risks. Patient stated she currently has complaints of broken blood vessels from vomiting. Expectations throughout regarding labs, ultrasounds, and appointments have been discussed with the patient in detail. It was reiterated that the patient is to drink 6-8 glasses of water a day, eat 6 small meals a day, do not consume raw or undercooked meat, and stay away from [facility]. Patient has been consulted regarding any further do's and don'ts of . Patient voiced understanding and all questions and concerns were answered. --Patient voiced that she was seen in ER and given Reglan and that she is not taking any other medications due to causing nausea. Patient was advised to take Reglan 30 prior to meals. Patient voiced that she was informed by Pharmacist to use Reglan as little as possible due to the risks to her and fetus. Orders Placed This Encounter Procedures POCT urinalysis dipstick manually resulted Follow Up: Patient is to return in 4 weeks for routine OB appointment. Documented by Kathleen Dickens LPN on behalf of: Karla Burns PA-C documented in this encounter [facility] Evaluation note Note Date & Type Note Facility Evaluation note Diagnosis 13 weeks gestation of Second trimester state, incidental documented in this encounter [facility] Evaluation note Note Date & Type Note Facility Evaluation note Diagnosis 17 weeks gestation of Second trimester state, incidental Exposure to STD Vaginal discharge Leukorrhea, not specified as infective Screening, , for anatomic survey Encounter for anatomic survey History of gestational diabetes Personal history of other genital system and obstetric disorders documented in this encounter [facility] Summary Purpose Family History No Family History Records FoundNo Family History Records FoundNo Family History Records Found Advance Directives No Advanced Directives Records FoundNo Advanced Directives Records FoundNo Advanced Directives Records Found Additional Source Comments INFORMATION SOURCE (unrecogn ized section and content) DATE CREATED AUTHOR 04/05/2022 Crystal Rodriguez [facility] DATE CREATED AUTHOR AUTHOR'S ORGANIZ ATION 04/08/2022 [facility] DATE CREATED AUTHOR AUTHOR'S ORGANIZ ATION 07/19/2024 [facility] Care Teams (unrecognized sec tion and content) Microbiology Lab Technician Relationship Specialty Start Date End Date Karla Ortega MD [address] [place] [id number] PCP - General Family Medicine 01/24/23 Microbiology Lab Technician Relationship Specialty Start Date End Date Karla Ortega MD [address] [place] [phone] PCP - General Family Medicine 01/24/23 Microbiology Lab Technician Relationship Specialty Start Date End Date Karla Ortega MD [address] [place] [phone] PCP - General Family Medicine 01/24/23 Microbiology Lab Technician Relationship Specialty Start Date End Date Karla Ortega MD [address] [place] [phone] PCP - General Family Medicine 01/24/23 Reason for Visit (unrecogniz ed section and content) Reason Comments Routine Visit FOR RECORDS PERTAINING TO PATIENTS WHO ARE [...] BE BASED ON THE PRIMARY CLINICAL RECORDS. [facility]. provides no warranty or guarantee of the accuracy or completeness of information in this document.
[2024-07-30 11:41] LABS: Glucose 1 Hour 173 mg/dL (<130)
== END 2024-07-30 10:06 | disposition home or self-care (01) ==
LOC: LAB 10:06
PROVIDERS: Visit Provider Obstetrics & Gynecology
DX: Z86.32 Personal history of gestational diabetes (principal)
CPT/HCPCS: 36415; 82950

== ENCOUNTER 2024-08-07 08:33 | Outpatient (OUT) | payer BC, SELFPAY ==
--- NOTE | 2024-08-07 08:34 | US_ITS ---
[address] [address] Patient Name: KAREEN FORMAN MRN: [id number] date: 1995 Sex: F Assigned Patient Location: [facility] Current Patient Location: [facility] Accession/Order Number: [id number] Exam Date: 08/07/2024 08:35 Report Date: 08/07/2024 10:03 At the request of: CARRIE ARREDONDO Procedure: US OB cervical length EXAMINATION: US OB anatomy, US OB cervical length HISTORY: ANATOMY COMPARISON: No relevant comparison available. TECHNIQUE: Transabdominal sonographic examination was performed for obstetrical and evaluation. FINDINGS: Number: 1 Heart Rate: 154 bpm H.B. /min Amniotic Fluid Volume: Subjectively normal position: Variable Placental Location: ANTERIOR, the placental edge is 6.8 cm from the internal cervical os Cervix Length: 4.54 cm , closed Normal anatomy: Lateral ventricles, cerebellum, posterior fossa, nose, lips, orbits, four-chamber heart, RVOT, LVOT, diaphragm, stomach, kidneys, abdominal cord insertion, bladder, umbilical arteries, three-vessel cord, spine, extremities BIOMETRY: BPD: 4.82 cm; 20 weeks 4 days; 37.20 % HC: 18.43 cm; 20 weeks 6 days 37.60 % AC: 17.13 cm; 22 weeks 1 day; 81.30 % FL: 3.74 cm; 21 weeks 6 days; 77.10 % EFW:417.28 g; 91 %, 1 lb. 0 oz. FL/AC: 21.83 FL/BPD: 77.59 HC/AC: 1.08 GESTATIONAL AGE: Age by EDC: 20 weeks 6 days KASSIDY by EDC: 2024-12-19 Age by current US: 21 weeks 3 days KASSIDY by current US: 2024-12-15 US/US OB cervical length IMPRESSION: Normal anatomy scan *Reference: [employer] Practice Guideline for the performance of Obstetric Ultrasound Examinations, June 03, 2007. Electronically authenticated by: ASHLEY HAZEL Date: 08/07/2024 10:03
--- NOTE | 2024-08-07 08:34 | US_ITS ---
[address] [address] Patient Name: KAREEN FORMAN MRN: [id number] date: 1995 Sex: F Assigned Patient Location: [facility] Current Patient Location: [facility] Accession/Order Number: [id number] Exam Date: 08/07/2024 08:35 Report Date: 08/07/2024 10:03 At the request of: CARRIE ARREDONDO Procedure: US OB anatomy EXAMINATION: US OB anatomy, US OB cervical length HISTORY: ANATOMY COMPARISON: No relevant comparison available. TECHNIQUE: Transabdominal sonographic examination was performed for obstetrical and evaluation. FINDINGS: Number: 1 Heart Rate: 154 bpm H.B. /min Amniotic Fluid Volume: Subjectively normal position: Variable Placental Location: ANTERIOR, the placental edge is 6.8 cm from the internal cervical os Cervix Length: 4.54 cm , closed Normal anatomy: Lateral ventricles, cerebellum, posterior fossa, nose, lips, orbits, four-chamber heart, RVOT, LVOT, diaphragm, stomach, kidneys, abdominal cord insertion, bladder, umbilical arteries, three-vessel cord, spine, extremities BIOMETRY: BPD: 4.82 cm; 20 weeks 4 days; 37.20 % HC: 18.43 cm; 20 weeks 6 days 37.60 % AC: 17.13 cm; 22 weeks 1 day; 81.30 % FL: 3.74 cm; 21 weeks 6 days; 77.10 % EFW:417.28 g; 91 %, 1 lb. 0 oz. FL/AC: 21.83 FL/BPD: 77.59 HC/AC: 1.08 GESTATIONAL AGE: Age by EDC: 20 weeks 6 days KASSIDY by EDC: 2024-12-19 Age by current US: 21 weeks 3 days KASSIDY by current US: 2024-12-15 US/US OB anatomy IMPRESSION: Normal anatomy scan *Reference: [employer] Practice Guideline for the performance of Obstetric Ultrasound Examinations, June 03, 2007. Electronically authenticated by: ASHLEY HAZEL Date: 08/07/2024 10:03
== END 2024-08-07 08:34 | disposition home or self-care (01) ==
LOC: NOMS 08:33
PROVIDERS: Visit Provider Obstetrics & Gynecology
DX: Z36.89 Encounter for other specified antenatal screening (principal); Z3A.21 21 weeks gestation of pregnancy
CPT/HCPCS: 76805; 76817

== ENCOUNTER 2024-08-11 19:06 | Emergency (ER) | payer BC, SELFPAY ==
[2024-08-11 19:09] VITALS: BP 140/81; PULSE 102; TEMP 36.6; O2SAT 97; BMI 46.4
[2024-08-11 19:11] VITALS: BP 134/67; O2SAT 98
--- NOTE | 2024-08-11 19:30 | ED_ITS ---
HPI HPI - General Adult General Chief complaint: Headache Stated complaint: L SIDE FACIAL PAIN Time Seen by Provider: 08/11/24 19:12 Source: patient Mode of arrival: walk-in Limitations: no limitations History of Present Illness HPI narrative: Patient is a 28-year-old female who presents to the emergency department for increasing pain in the left maxilla. She is 21 weeks . She states she woke up today with worsening sinus congestion and pain radiating into the left ear and along the left jaw. She denies any mechanism of injury or trauma. She has not had any fevers or vomiting. She states she has been having sinus congestion intermittently for the last 7 to 10 days. She has been using Tylenol Cold and flu with intermittent improvement. She has not had any drainage from the teeth. Related Data Previous Rx's ?Medication ?Instructions ?Recorded naproxen 500 mg tablet 500 mg PO Q12H PRN pain #10 tabs 07/14/23 metoclopramide HCl 10 mg tablet 10 mg PO Q6H PRN nausea and 05/25/24 (Reglan) vomiting #20 tabs amoxicillin 875 mg-potassium 1 tab PO Q12H #20 tabs 08/11/24 clavulanate 125 mg tablet Allergies Allergy/AdvReac Type Severity Reaction Status Date / Time No Known Drug Allergies Allergy Verified 05/25/24 17:08 Opioid HPI Opioid Management Most Recent Opioid Data: Last Pain Scale 3 08/11/24 19:23 08/11/24 Ur Phencyclidine Scrn Negative (NEGATIVE) 05/30/24 08:56 05/05 03/26 Review of Systems ROS Constitutional Denies: fever or chills Ears, nose, mouth, and throat Reports: mouth pain and nasal congestion; Denies: throat pain Cardiovascular Denies: chest pain Respiratory Denies: shortness of breath or cough Gastrointestinal Denies: nausea or vomiting Neurological Reports: headache; Denies: numbness in extremities or weakness in extremities Hematologic/Lymphatic Denies: easy bruising or easy bleeding PFSH PFSH Social History Little interest or pleasure in doing things: not at all Feeling down, depressed, or hopeless: not at all Exam Narrative Exam Narrative: Gen.: Awake, alert, in no distress Head: Normocephalic, atraumatic ENT: Moist mucous membranes, bilateral TMs are bulging mildly with no erythema or injection. Tenderness over the left maxilla with no facial swelling or asymmetry noted. Excellent dentition with no evidence of a dental abscess or dental caries. Clear speech. Respiratory: No respiratory distress, lungs clear bilaterally Cardio: Regular rate and rhythm Extremities: Moves extremities equally Psych: Normal mood and affect Neuro: No focal neuro deficit Skin: Warm, dry, intact Constitutional Vital Signs, click to edit/add: Last Vital Signs Temp 97.8 F 08/11/24 19:09 Pulse 102 H 08/11/24 19:09 Resp 14 08/11/24 19:43 BP 134/67 08/11/24 19:11 Pulse Ox 98 08/11/24 19:11 O2 Del Method Room Air 08/11/24 19:11 Course Vital Signs Vital signs: Vital Signs Temperature 97.8 F 08/11/24 19:09 Pulse Rate 102 H 08/11/24 19:09 Respiratory Rate 18 08/11/24 19:09 Blood Pressure 140/81 08/11/24 19:09 Pulse Oximetry 97 08/11/24 19:09 Oxygen Delivery Method Room Air 08/11/24 19:09 Temperature 97.8 F 08/11/24 19:09 Pulse Rate 102 H 08/11/24 19:09 Respiratory Rate 14 08/11/24 19:43 Blood Pressure 134/67 08/11/24 19:11 Pulse Oximetry 98 08/11/24 19:11 Oxygen Delivery Method Room Air 08/11/24 19:11 Medical Decision Making MDM Narrative Medical decision making narrative: Patient treated for sinusitis with Augmentin, she is 21 weeks so we will avoid steroids at this time. She can continue Tylenol cold and flu as she was instructed to do [id number]. Follow-up with primary care. Return to the ER if symptoms change or worsen SUPERVISED APC VISIT, PHYSICIAN ATTESTATION: Based on the medical record the care appears appropriate. ? Medical Records Medical records reviewed: Yes I reviewed the patient's medical records Discharge Plan Discharge Chief Complaint: Headache Clinical Impression: Sinusitis, Acute facial pain Patient Disposition: Home, Self-Care Time of Disposition Decision: 19:33 Condition: Good Prescriptions / Home Meds: New amoxicillin-pot clavulanate 875-125 mg tablet 1 tab PO Q12H Qty: 20 0RF No Action naproxen 500 mg tablet 500 mg PO Q12H PRN (Reason: pain) Qty: 10 0RF metoclopramide HCl [Reglan] 10 mg tablet 10 mg PO Q6H PRN (Reason: nausea and vomiting) Qty: 20 0RF Print Language: Wolof Instructions: Sinusitis (ED) Referrals: JIMMY CLIFFORD [Primary Care Provider] - 1 week Discharge Date/Time: 08/11/24 19:43
[2024-08-11] MEDS: AMOXICILLIN/POT CLAV 875-125 MG TABLET 1 TAB PO (19:38)
== END 2024-08-11 19:43 | disposition home or self-care (01) ==
PROVIDERS: Emergency Provider Emergency Medicine
DX: O99.512 Diseases of the respiratory system complicating pregnancy, second trimester (principal); J32.9 Chronic sinusitis, unspecified; O99.891 Other specified diseases and conditions complicating pregnancy; G50.1 Atypical facial pain; Z3A.21 21 weeks gestation of pregnancy
CPT/HCPCS: 99283

== ENCOUNTER 2024-08-12 08:29 | Outpatient (OUT) | payer BC, SELFPAY ==
[2024-08-12 09:02] LABS: Basophils Percent Auto 0.3 % (0.2-2.0); Eosinophils Absolute Auto 0.1 10^3/uL (0.0-0.7); Eosinophils Percent Auto 0.9 % (0.9-7.0); Hematocrit 36.3 % (36.0-48.0); Hemoglobin 11.9 g/dL (12.0-16.0); Immature Granulocytes Abs Auto 0.04 10^3/uL (0.00-0.03); Immature Granulocytes Pct Auto 0.4 % (0.0-0.5); Lymphocytes Absolute Auto 1.6 10^3/uL (1.2-3.8); Mean Corpuscular HGB Conc 32.8 g/dL (29.9-35.2); Mean Corpuscular Hemoglobin 27.2 pg (26.7-34.0); Mean Corpuscular Volume 83.1 fL (81.0-99.0); Mean Platelet Volume 9.2 fL (9.5-13.5); Monocytes Absolute Auto 0.8 10^3/uL (0.3-0.8); Monocytes Percent Auto 7.4 % (1.7-12.0); Neutrophils Absolute Auto 7.8 10^3/uL (1.4-6.5); Platelet Count 322 10^3/uL (150-450); Red Blood Count 4.37 10^6/uL (4.20-5.40); Red Cell Distribution Width 14.8 % (11.0-15.0); White Blood Count 10.3 10^3/uL (4.0-11.0)
[2024-08-12 09:11] LABS: Glucose Fasting 84 mg/dL (<95)
[2024-08-12 10:09] LABS: Glucose 1 Hour 173 mg/dL (<180)
[2024-08-12 11:06] LABS: Glucose 2 Hour 126 mg/dL (<155)
[2024-08-12 11:58] LABS: Glucose 3 Hour 115 mg/dL (<140)
== END 2024-08-12 08:30 | disposition home or self-care (01) ==
LOC: LAB 08:29
PROVIDERS: Visit Provider Obstetrics & Gynecology
DX: R73.09 Other abnormal glucose (principal)
CPT/HCPCS: 36415; 82951; 82952; 85025

== ENCOUNTER 2024-10-07 08:52 | Outpatient (OUT) | payer BC, SELFPAY ==
[2024-10-07 09:33] LABS: Glucose Fasting 83 mg/dL (<95)
[2024-10-07 10:54] LABS: Glucose 1 Hour 163 mg/dL (<180)
[2024-10-07 11:34] LABS: Glucose 2 Hour 146 mg/dL (<155)
[2024-10-07 13:25] LABS: Glucose 3 Hour 83 mg/dL (<140)
== END 2024-10-07 08:53 | disposition home or self-care (01) ==
LOC: LAB 08:57
PROVIDERS: Visit Provider Obstetrics & Gynecology
DX: R73.09 Other abnormal glucose (principal)
CPT/HCPCS: 36415; 82950; 82951; 82952

== ENCOUNTER 2024-10-10 13:57 | Observation (INO) | payer BC, SELFPAY ==
[2024-10-10 14:11] VITALS: BP 117/63; PULSE 99
--- OUTSIDE RECORDS SUMMARY | 2024-10-10 14:15 | XMS_ITS | CCD ---
Author Organization [facility] Care Team Providers Care Cash Register Servicer Name Role Phone DR CARRIE PAYAN Primary Care Unavailable ANGÉLICA NARAYANAN Attending Unavailable ANGÉLICA NARAYANAN Consulting Unavailable ANGÉLICA NARAYANAN Admitting Unavailable MARQUIS HENSON Consulting Unavailable DR CARRIE PAYAN Consulting Unavailable DR CARRIE PAYAN Primary Care Unavailable DR CARRIE PAYAN Admitting Unavailable DR CARRIE PAYAN Attending Unavailable Karla Ortega MD Primary Care Provider [phone] CARRIE PAYAN Attending Unavailable KARLA BURNS Attending Unavailable CARRIE PAYAN Attending Unavailable CARRIE PAYAN Attending Unavailable CARRIE PAYAN Attending Unavailable KARLA BURNS Attending Unavailable Medications Current Medications Medication Drug Class(es) Dates Sig (Normalized) Sig (Original) aspirin 81 mg delayed release oral tablet (3 sources) Platelet Aggregation Inhibitor, Nonsteroidal Anti-inflammatory Drug Start: 09-25-2024 End: 09-25-2025 take 1 tablet by mouth once daily aspirin 81 MG EC tablet Indications: Second trimester , 27 weeks gestation of Take 1 tablet (81 mg) by mouth Daily 30 tablet 6 09/25/2024 09/25/2025 Active cephalexin 500 mg oral capsule (2 sources) Cephalosporin Antibacterial Start: 2024 End: 09-18-2024 take 1 capsule by mouth in the morning, then take 1 capsule by mouth in the evening, then take 1 capsule by mouth at bedtime cephalexin (Keflex) 500 MG capsule Indications: UTI symptoms Take 1 capsule (500 mg) by mouth in the morning and 1 capsule (500 mg) in the evening and 1 capsule (500 mg) before bedtime. Do all this for 7 days. 21 capsule 2024 09/18/2024 Active metoclopramide 5 mg oral tablet (14 sources) Dopamine-2 Receptor Antagonist End: 2024 metoclopramide (Reglan) 5 MG tablet Take 5 mg by mouth in the morning and 5 mg at noon and 5 mg in the evening and 5 mg before bedtime. 2024 Discontinued Completed/Discontinued Medications Medication Drug Class(es) Dates Sig (Normalized) Sig (Original) nitrofurantoin, macrocrystals 25 mg / nitrofurantoin, monohydrate 75 mg oral capsule (6 sources) Nitrofuran Antibacterial Start: 09-19-2024 End: 09-26-2024 take 1 capsule by mouth in the morning nitrofurantoin, macrocrystal-mon ohydrate, (Macrobid) 100 MG capsule Indications: UTI symptoms Take 1 capsule (100 mg) by mouth in the morning and 1 capsule (100 mg) before bedtime. Do all this for 7 days. 14 capsule 09/19/2024 09/26/2024 Start: 06-10-2024 End: 06-17-2024 take 1 capsule by mouth in the morning nitrofurantoin, macrocrystal-monohydrate , (Macrobid) 100 MG capsule Indications: Staphylococcus aureus infection Take 1 capsule (100 mg) by mouth in the morning and 1 capsule (100 mg) before bedtime. Do all this for 7 days. 14 capsule 06/10/2024 06/17/2024 Discontinued omeprazole 20 mg delayed release oral capsule (4 sources) Proton Pump Inhibitor Start: 05-16-2024 End: 06-17-2024 take 1 capsule by mouth before mealtime omeprazole (PriLOSEC) [address] capsule Indications: Gastroesophageal Reflux Disease , Heartburn Take 1 capsule (20 mg) by mouth in the morning. Take before meals. Do not crush or chew.. 30 capsule 3 05/16/2024 06/17/2024 Discontinued ondansetron 4 mg disintegrating oral tablet (3 sources) Serotonin-3 Receptor Antagonist Start: 05-16-2024 End: 06-17-2024 take 1 tablet by mouth every six hours for nausea ondansetron ODT (Zofran-ODT) 4 MG disintegrating tablet Indications: Missed menses Take 1 tablet (4 mg) by mouth every 6 (six) hours if needed for nausea or vomiting 30 tablet 2 05/16/2024 06/17/2024 Discontinued Problems Problem Classification Problem Date Documented Date Episodic/Chronic Diabetes mellitus without complication (2 sources) Abnormal glucose tolerance test; Translations: [Other abnormal glucose] 09-25-2024 Episodic Diabetes or abnormal glucose tolerance complicating ; childbirth; or the puerperium (2 sources) History of gestational diabetes mellitus; Translations: [Personal history of gestational diabetes] 07-17-2024 Episodic E Codes: Fall (1 source) Fall (on) (from) unspecified stairs and steps, initial encounter; Translations: [FALL ON FROM UNS STAIRS STEPS INIT] Onset: 03-13-2022 Episodic Genitourinary symptoms and ill-defined conditions (2 sources) Urinary symptoms ; Translations: [Unspecified symptoms and signs involving the genitourinary system] 2024 Episodic Immunizations and screening for infectious disease (2 sources) Exposure to sexually transmissible disorder; Translations: [Contact with and (suspected) exposure to infections with a predominantly sexual mode of transmission] 07-17-2024 Episodic Menstrual disorders (1 source) Missed period; Translations: [Irregular menstruation, unspecified] 05-16-2024 Chronic Other connective tissue disease (3 sources) Pain in left foot; Translations: [PAIN IN LEFT FOOT] Onset: 03-11-2022 Episodic Other female genital disorders (2 sources) Vaginal discharge; Translations: [Other specified noninflammatory disorders of vagina] 07-17-2024 Episodic Other and delivery including normal (12 sources) Second trimester ; Translations: [Encounter for [...] [17 weeks gestation of ] 07-17-2024 Episodic Residual codes; unclassified (2 sources) Gestation period, 21 weeks; Translations: [21 weeks gestation of ] 08-14-2024 Episodic Residual codes; unclassified (2 sources) Gestation period, 25 weeks; Translations: [25 weeks gestation of ] 2024 Episodic Residual codes; unclassified (2 sources) Gestation period, 27 weeks; Translations: [27 weeks gestation of ] 09-25-2024 Episodic Sprains and strains (1 source) Sprain of unspecified ligament of left ankle, initial encounter; Translations: [SPRAIN UNS LIGAMENT LT ANKLE INIT] Onset: 03-13-2022 Episodic Results Test Name Value Interpretation Reference Range Facility GLUCOSE TOLERANCE 3 HOURon 0 10-07-2024 GLUCOSE TOLERANCE 3 HOUR mg/dL [facility] Comment on above: GLU FAST 83 (<95) Co l: 10/07/24 0909 GLU 1HR 163 (<180) Col: 10/07/24 1012 GLU 2HR 146 (<155) Col: 10/07/24 1112 GLU 3HR 83 (<140) Col: 10/07/24 1212 [facility] Urinalysis macro (dipstick) panel (U)on 09-25-2024 Bilirubin, UA Negative Negative - 4(70) +++ mg/dL [facility] Blood, UA Negative Negative - 50 Roberto/mcL [facility] Clarity, UA Clear [facility] re Color, UA Yellow [facility] Glucose, UA Negative Negative - 1999(110) ++++ mg/dL [facility] Interpretation and review of laboratory results Abnormal [facility] Ketones, UA Negative Negative - 160(16) ++++ mg/dL [facility] Leukocytes, UA Positive Negative - 500+++ Christian/mcL [facility] Comment on above: small Nitrite, UA Negative Negative - Positive [facility] pH, UA 8.5 5 - 9 [facility] Protein, UA Negative Negative - 1999(20) ++++ mg/dL [facility] Spec Grav, UA 1.02 1 - 1.03 [facility] Urobilinogen, UA 1.0 0.2 - 12 mg/dL [facility] macro (dipstick) panel (U)on 2024 Bilirubin, UA Negative Negative - 4(70) +++ mg/dL [facility] Blood, UA Negative Negative - 50 Roberto/mcL [facility] Clarity, UA Clear [facility] Color, UA Yellow [facility] Glucose, UA Negative Negative - 1999(110) ++++ mg/dL [facility] Interpretation and review of laboratory results Abnormal [facility] Ketones, UA Negative Negative - 160(16) ++++ mg/dL [facility] Leukocytes, UA Moderate Negative - 500+++ Christian/mcL [facility] Nitrite, UA Positive Negative - Positive [facility] pH, UA 7 5 - 9 [facility] Protein, UA Positive Negative - 1999(20) ++++ mg/dL [facility] Comment on above: 100 Spec Grav, UA 1.02 1 - 1.03 [facility] Urobilinogen, UA 1.0 0.2 - 12 mg/dL [facility] Urinalysis macro (dipstick) panel (U)on 08-14-2024 Bilirubin, UA Negative Negative - 4(70) +++ mg/dL [facility] Blood, UA Negative Negative - 50 Roberto/mcL [facility] Clarity, UA Clear [facility] Color, UA Yellow [facility] Glucose, UA Negative Negative - 1999(110) ++++ mg/dL [facility] Interpretation and review of laboratory results Abnormal [facility] Ketones, UA Negative Negative - 160(16) ++++ mg/dL [facility] Leukocytes, UA Negative Negative - 500+++ Christian/mcL [facility] Nitrite, UA Negative Negative - Positive [facility] pH, UA 5.5 5 - 9 [facility] Protein, UA Negative Negative - 1999(20) ++++ mg/dL [facility] Spec Grav, UA 1.02 1 - 1.03 [facility] Urobilinogen, UA 1.0 0.2 - 12 mg/dL [facility] ALL CBC WITH AUTO DIFFon BASOPHILS ABSOLUTE AUTO 0 [facility] Basophils/100 WBC (Bld) 0.3 % 0.2 - 2.0 % [facility] Eosinophils/100 WBC (Bld) 0.9 % 0.9 - 7.0 % [facility] Erythrocyte distribution width (RBC) [Ratio] 14.8 % 11.0 - 15.0 % [facility] Hematocrit (Bld) [Volume fraction] 36.3 % 36.0 - 48.0 % [facility] Hemoglobin (Bld) [Mass/Vol] 11.9 g/dL Low 12.0 - 16.0 g/dL [facility] IMMATURE GRANULOCYTES ABS AUTO 0.04 High [facility] Immature granulocytes/100 WBC (Bld) 0.4 % 0.0 - 0.5 % [facility] Interpretation and review of laboratory results Abnormal [facility] LYMPHOCYTES ABSOLUTE AUTO 1.6 [facility] Lymphocytes/100 WBC (Bld) 15 % Low 20.5 - 60.0 % [facility] MCH (RBC) [Entitic mass] 27.2 pg 26.7 - 34.0 pg [facility] MCHC (RBC) [Mass/Vol] 32.8 g/dL 29.9 - 35.2 g/dL [facility] MCV (RBC) [Entitic vol] 83.1 fL 81.0 - 99.0 fL [facility] MONOCYTES ABSOLUTE AUTO 0.8 [facility] Monocytes/100 WBC (Bld) 7.4 % 1.7 - 12.0 % [facility] NEUTROPHILS ABSOLUTE AUTO 7.8 High [facility] Neutrophils/100 WBC (Bld) 76 % High 43.0 - 75.0 % [facility] Platelet mean volume (Bld) [Entitic vol] 9.2 fL Low 9.5 - 13.[address] [facility] EO # 0.1 [facility] TB PLT 322 [facility] RBC 4.37 [facility] TB WBC 10.3 [facility] GLUCOSE 1 HOURon 07-30-2024 Glucose [Mass/Vol] 173 mg/dL High NINF - 13 0 mg/dL [facility] Interpretation and review of laboratory results Abnormal [facility] RECURRENT VAGINITIS (HTRX)on 07-18-2024 ATOPOBIUM VAGINAE 21.066 [facility]normal [facility] ATOPOBIUM VAGINAE Detected Abnormal [facility]care BVAB 2,3 (BACTERIAL VAGINOSIS ASSOCIATED BACTERIA 2, 3); MOBILUNCUS SPP 20.228 Abnormal [facility] BVAB 2,3 (BACTERIAL VAGINOSIS ASSOCIATED BACTERIA 2, 3); MOBILUNCUS SPP Detected Abnormal [facility] BLANCA ALBICANS, PARAPSILOSIS, TROPICALIS 0 [facility] BLANCA ALBICANS, PARAPSILOSIS, TROPICALIS Not detected [facility] BLANCA GLABRATA 0 [facility] BLANCA GLABRATA Not detected [facility] ealthcare BLANCA KRUSEI 0 [facility] BLANCA KRUSEI Not detected [facility] CHLAMYDIA TRACHOMATIS 0 [facility] CHLAMYDIA TRACHOMATIS Not detected [facility] ERMB, C; MEFA 26.[address] [facility] care ERMB, C; MEFA Detected Abnormal [facility] care GARDNERELLA VAGINALIS 21.744 Abnormal [facility] GARDNERELLA VAGINALIS Detected Abnormal [facility] Interpretation and review of laboratory results Abnormal [facility] MEGASPHAERA (TYPES 1, 2) 0 [facility] MEGASPHAERA (TYPES 1, 2) Not detected [facility] MYCOPLASMA GENITALIUM 0 [facility] MYCOPLASMA GENITALIUM Not detected [facility] NEISSERIA GONORRHOEAE 0 [facility] NEISSERIA GONORRHOEAE Not detected [facility] TET B, TET M 24.757 Abnormal [facility] are TET B, TET M Detected Abnormal [facility] TRICHOMONAS VAGINALIS 0 [facility] TRICHOMONAS VAGINALIS Not detected [facility] Urinalysis macro (dipstick) panel (U)on 07-17-2024 Bilirubin, UA Negative Negative - 4(70) +++ mg/dL [facility] Blood, UA Negative Negative - 50 Roberto/mcL [facility] Clarity, UA Clear [facility] re Color, UA Yellow [facility] Glucose, UA Negative Negative - 1999(110) ++++ mg/dL [facility] Interpretation and review of laboratory results Abnormal [facility] Ketones, UA Positive Negative - 160(16) ++++ mg/dL [facility] Leukocytes, UA Trace Negative - 500+++ Christian/mcL [facility] Nitrite, UA Negative Negative - Positive [facility] pH, UA 5.5 5 - 9 [facility] Protein, UA Trace Negative - 1999(20) ++++ mg/dL [facility] Spec Grav, UA 1.03 1 - 1.03 [facility] Urobilinogen, UA 0.2 0.2 - 12 mg/dL [facility] Urinalysis macro (dipstick) panel (U)on 06-17-2024 Bilirubin, UA Negative Negative - 4(70) +++ mg/dL [facility] Blood, UA Negative Negative - 50 Roberto/mcL [facility] Clarity, UA Clear [facility] re Color, UA Yellow [facility] Glucose, UA Negative Negative - 1999(110) ++++ mg/dL [facility] Interpretation and review of laboratory results Abnormal [facility] Ketones, UA Negative Negative - 160(16) ++++ mg/dL [facility] Leukocytes, UA Negative Negative - 500+++ Christian/mcL [facility] Nitrite, UA Negative Negative - Positive [facility] pH, UA 6 5 - 9 [facility] e Protein, UA Positive Negative - 1999(20) ++++ mg/dL [facility] Comment on above: 100 Spec Grav, UA 1.03 1 - 1.03 [facility] Urobilinogen, UA 0.2 0.2 - 12 mg/dL [facility] ALL CBC WITH AUTO DIFFon BASOPHILS ABSOLUTE AUTO 0.0 [facility] Basophils/100 WBC (Bld) 0.4 % 0.2 - 2.0 % [facility] Eosinophils/100 WBC (Bld) 1.1 % 0.9 - 7.0 % [facility] Erythrocyte distribution width (RBC) [Ratio] 14.2 % 11.0 - 15.0 % [facility] Hematocrit (Bld) [Volume fraction] 39.3 % 36.0 - 48.0 % [facility] e Hemoglobin (Bld) [Mass/Vol] 12.8 g/dL 12.0 - 16.0 g/dL [facility] IMMATURE GRANULOCYTES ABS AUTO 0.02 [facility] Immature granulocytes/100 WBC (Bld) 0.3 % 0.0 - 0.5 % [facility] Interpretation and review of laboratory results Abnormal [facility] LYMPHOCYTES ABSOLUTE AUTO 1.6 [facility] Lymphocytes/100 WBC (Bld) 21.5 % 20.5 - 60.0 % [facility] MCH (RBC) [Entitic mass] 26.8 pg 26.7 - 34.0 pg [facility] MCHC (RBC) [Mass/Vol] 32.6 g/dL 29.9 - 35.2 g/dL [facility] MCV (RBC) [Entitic vol] 82.2 fL 81.0 - 99.0 fL [facility] MONOCYTES ABSOLUTE AUTO 0.4 [facility] Monocytes/100 WBC (Bld) 5.1 % 1.7 - 12.0 % [facility] NEUTROPHILS ABSOLUTE AUTO 5.3 [facility] Neutrophils/100 WBC (Bld) 71.6 % 43.0 - 75.0 % [facility] Platelet mean volume (Bld) [Entitic vol] 9.2 fL Low 9.5 - 13.5 fL [facility] EO # 0.1 [facility] PLT 324 [facility] RBC 4.78 [facility] WBC 7.4 [facility] HCG ( test) Ql (U)o n 05-16-2024 Interpretation and review of laboratory results Abnormal [facility] Preg Test, Ur Positive [facility] Cytology Cervical or vaginal smear or scraping studyOrdered By: Sheila Flowers on 04-07-2024 [facility] Coding Summary.on 04-07-2022 Coding Summary. CD:[id number] G h0bWw+PGhlYWQ+EF9QZCE oF68pkUYfaP3QH0oYXT9W IWDEFBNYDD5EJZ6gzSS3X LdlO6IiyhOp GaezsTDgYO88LQs9IRS7g IzbEFlqkW6lnNPyN2d2Jg BrXS54qW04YLyiSNJeZwF 3LjZpbjsgbWFy R4qtUmZubIBkJgn+PHRhY mxlIHdpZHRoPScxMDAlJy IqrDmjUK5gGc7yFPDxCDM vbGxhcHNlOiBj g0vlBSBuPJnfWT7fbOelP 6QpoTA6ZSFst5r6Hg57lJ I+OTLqWMQ3sDlaIGydd41 7HyDtb1rgEUL3 bQHlCKyeQBF2Z58qf6G9G DOuUZFuOHK9gGZ5aO6woB nvrtlmP0JyyNFsBfS6CXV 7wPUvkD0ezYhr jtallK1pJua+R04XSE5WO TQYWJ8IAge1V8UjJqlsiM I+TH63JCIeVA04jTVygWX tk5ohhMi8XwCg HDRuABQ3gZxdLKylo1HaU ZIxU36cmYCld5B3KSYccN qbiNPcJiDtkPO7gR1kNUj xtbqfs6wxssai Copyj4ottx70tQ96S04nR XzxMLTxPBO3ROJxWUXhwA yxzg7riR3qHm5+IRhsr7c vi0pssTi4JhLk AUWmcrBxyVxfQCB0v8FdC j93E0LteXfih7VlMom5ae 92dCOgj1X4uGR5ORtqJYQ keH8fJOaaEpS2 QLScFkAstX61qCEiHPosZ u0lcAatwFypWN0cNURlbx lqUVJrgK8tBJPdiPPfjVx tBV8qQWKqpcxx l267MjTkVLG8ONDiqBRfX 3OfyZ2nJkKzGLNjJJZxC8 OkuJRiFSteQ513YUfeMfJ 7NMYofaEiQ0Oc TVCceYcaPuK7a6T5Lv0Rm 6VvztgkKOQ4YPnmLMV4Ce L1UeBnQuL8D7MzWyh1IYS ijPozQN9dP5As OESedakacmdlrYX4DLLgA RAwhS20hOEtANiqVv6en2 L7p404MIBkEZOrxD15Nd0 udDogMTBwdCBU nB8vpcjgj9xstwueRfBoA DXgJHt3CKq8SPAayQksUn FkOGC9JjK4TJH9jRWgjT0 msGcglyerxJ5s Oyc+C61toG6eYOA5SIU0t xkzFTRofxGcJG13NA52J5 RyPjwvdGFibGU+PGRpdiB flFjnCS5hRxSn b6nrv8SzHOudK3RuAUEcQ NqnNyt0OBFwGOB9rVH5cM 5fWBPxSHiun0H2bEV9S9H yotNdpz5xa1ts CQDgWPfiR85mcLOfg2H6W ZCquQS3XGAgsIcdYwTmoX 93Oyc+DECujBkiz3TrDvr ez1ftv0racDa8 BtHwTAJrrxXrxJynOOU1x 9FyIl58U74aZTjiAAOhYY XtMFPfEEOjsSxtfc8nbP5 wIi8+PGNvbCB3 fUA5lG4hATIvUaL8TEajT 041SdUisHCqLjvvg1mlh0 vbbSd4YfIwATNyeeAmzIi hGOR9l6UgXz05 X10sVRwpJJYmZSFyVZFbB IXleIdece5djK5mGd3+PC 8ix0cqeu67kH86vGZ+PHR rQBT5iAxtAQus IJNlgV7oIZsqXnE1MJFbS kZgpS28hCQaEQojDf6ziU nsuXtuMJ2oXCCckwvwy33 7XoLnc7apEGEy cCDwGAbrZKS4D31gv8X8P DRpZBQuNNS7aKU7kK9eaH lnbjogbGVmdDsgdmVydGl rSAfeYJtsH664 IHRvcDsnPlBhdGllbnQgT aQtPOg2M7UgAhp7RQPkmB juDT2juRGbIXqaSl9toUu rmPzbJV4nJGKc vcmtz808IaIwh8xkWUTyt ZWeEJftYLH1G41mj1A3CO YjPLYqSNL3pTH8dF0hwDn nbjogbGVmdDsg wuXmlOwgMVuwZNspP051T HRvcDsnPkJpcnRoIERhdG A4IL38VT55kIHti0U3xNJ 7C6LfJNOyoyeh ribdbGO3GQIrQYBdpT22P j8jgNxcLy8rKBFoZVJ8LZ GznRExO8JkvW1tJeKlGYO vMQRoG6GdwOAa WXyjE772FKwpSuB0DFAwf cHeJ8LcGMVsvTckHvI7b3 N7Ri4RV6T5TT77GM35jWT bp0G7cGL3K6Vt URIsyzecgofipTM0UNFgI NTdhP66Ji7peJljJz3hOO UnESG1SDIkdNRfJ8CqeB9 yOiAjMDAwMDAw P2VcnWAsTBhfP941LYffK jQ2VJSnpbKxQ6CwLBZgoJ lbXkU9p9U1Ak4CYTp9UW2 7UE54rSQlx9K8 uLA1P6UzAUTnqqwprfufi DS7LUXfOUHcoY46Gf4osO dmNb4kPAYuWUW4XTOljBW bR8DpjA0uQdRe NDYtGMDuE1CshATdFKknO 462JXzoAsB4PMUyiqWiA4 KuAQRwyXwfIfI2t2V0Og4 NEPSfNY44XEE2 bKV4FV00MT46G1WnUamyv GFibGU+PHRhYmxlIHdpZH RoPScxMDAlJyBzdHlsZT0 sDv7vVZNfJIIo zZcyhSGnAkSuu5muMOXaZ SvvTE1xdQirR9SphMD4IL Ahg4o1Ds40C48gK6GzsSJ +JQFxuUP7fAB7 tW4gYxWfNdL0FHloT023I tXfwXHkMshor3zje0fezO w5EiB3CUNvwmMwzMjfFZN 4g8AxMq35J62s IHdpZHRoPSIxNSUiIHZhb Egmey9lmL6nGf7+PGNvbC G7wDX4gO7sYaArEcZ3AOa yB213DjFfvHNk Lrmvc3mtz0gmbDk3AmIoF GVilfZupIcaBFS7m8IhUv 37Q3EzuWtmp2UxHbg0bw4 3xLLyv6D1bHA4 H3OrPZPfuyncnQNleQaaR F8zHDReprllXPEjfG3mEN QpL0p5BvTdPiZ1QXtkQ9B hlfP9CFTjtJUy TPbiIAR1S67ei1N5EUAbR HHbUIM8xRA5uJ8hjZejqr ogbGVmdDsgdmVydGljYWw zDUckI509MHAh lYpwNCHdaP5iFLOhpNPss DlkTU5dAYDlxdjyMjDAFU BQLCBIQUxFWSBOSUNPTEU 1R6SoEyu5XSEi ePhrNX1hlBTlNAnaUb2ec IoppYukUU7oIBGcuoabOG EwdT1vSZWtiVTrtWjxGW1 nMBHawzcvs805 EuPpZNV0BYNgdSUtF8Bbd I3mXlUwNSGpRDOcI4YcrF EeGVcnF520DSpnClP4HZK hurAwF8FdUMRm aMztPgE0x2C8Gh5nES6mT Q9vUZb8KW48YQ21xNJzf4 G8uJL6N6SqNAIazlpsysu ubBP6JZHsTRGo vP19tQPjVUzhDh8ez3P4y 038DOEqQWVyuV79Gz7fxA jvJKWzpXSXtL1nxkhtr4g vcjogIzAwMDAw ILb1HZw8AWUqzZteYdNfP WZ9SuF6WMU0lMLzcJ0kmV mlpynvdS8eBum+MjQgWWV oolZ7R0GsEiu5 ZITtkPavHO1xtTDsCCwsN e5sgCeczTkgDR7kHORljr dfVNAtfQ1dLOBhiRGskAo iYD3cQQYkjars s970EfGpAJC9TCHslCXvV 2PlxR2qYmVuFNFsUYCpQ6 TzzRKvDVxaY437OZrxTyU 6HVWssxWhH4Qr FPFloQxfWoL8w6G1Hf4MF B3rqJS2B0XoSqz9ILIxsP evQK8neJYkKLwfZj0rhDh phOamBT1dNGKo dmgnLTGchX2yJZMcsGQec AbnXF0iFNNgrdxft884Fb QoJJZ1RFMgaMEaY3YwkV7 yOiAjMDAwMDAw B0DlmJRlUXoiV572COjiX oW1HPStkyOmU1CaNYGagI dmTtB4r2C9Yf0DbWMbNXW lCK93ZQ63GM09 R2ArEgcorLBqwQV+PHRhY mxlIHdpZHRoPScxMDAlJy MrnEjqFE2vAc4oXFRtOAX vbGxhcHNlOiBj g6ksIICjYUhpDV7auIozN 6NvhJL5DUGeq9u2Dn02Q1 6tD9PfbDP+DCXohYC0cKX 6kI0dIpPoFzM7 HWyoW816AgFouHUhFvxjm 6ras9eojKr1FeYvLYAvef YssVyiTRT2x4KjTo81W86 sIHdpZHRoPSIy JMYaQLTvfQwjjm0tkT1jC i8+LOLbjOQ2sTX3yD3vMk SgQgQ3KNtsX761KfIgjCW mDnplS41yP5Jv dXA+NDOhNhg8KAInwGrzH I6xeRKqQWpzOg2qKFO7Ci PnAgBoQGdjL6JlHPMhwlu ocojwpWY4GJBu UIZalA58Lc2vsRatZe0wE XVhYFP5LAYygOSeV9HafM 0oGdRhEFUwVTMmR6NedRW lIYvxI100UZzr TtH3FZUldqHgE7NiBYDxi MzlAzN1d8J2Lw7CqYstcY EeTP1aHpRdGWf7R5KxYge 9XVIzgJcaOC4n pDVwONmqXx7qrHdqtJwoM T1wLPLtfzyaw871FkHlj9 haEWWpmWAxHEttQCL4K73 ud3R8NGAfDJIe YVS6nYO4cR5ucWsuggvgw GVmdDsgdmVydGljYWwtYW fsI746VRYqpNroDcAQTqw 5O9QuPpn5HCQb wLwsJB2fpRQqGBboZb4ib PksnCkhZK6jRTEiddslm5 56IpFsd9cnUCQkzWLpEOt xHGC2P04ps8R3 ELPsMRFqPPW1qGU4dN3ee GlnbjogbGVmdDsgdmVydG onOEziMTqxZ344NSYvzEe iHt5AXzn6R7Jz Xtu5JFDsnRnzUH7yxPDcS TsoPs2spMssyHhcCY2kQR Vnfpmka411FlHmf1ciBEA wcHQgVGltZXM7 M34xm1C6DJMkTOGdQHP3x OQ7dG4bgHbegkozoPGztF ynsoGbwStkEOriDGouO29 6IHRvcDsnPlBh eWVyOjwvdGQ+WM28df16F 0FhGghkOsz2LCIiUEC8yI B4vA8qXBFnHKnsp1B7yLE 8K9GmsxWprq6w b2xs (more content not included)... [facility] XR Ankle 3+ Views Lefton XR Ankle [...] Howell M.D. Transcribed by: JENN Technologist: STEVEN [facility] Consent for Treatmenton Consent for Treatment [id number]#1 .00CD:127 [facility] Physician Orderon 04-03-2022 Physician Order [id number] 1.00CD:127 Normal [facility] XR ANKLE LT MIN 3 Von 2021 XR ANKLE LT MIN 3 V EXAM: XR ANKLE LT MO N 3 V, XR FOOT LT MIN [...] authenticated by: MARQUIS HENSON Date: 2022-03-11 16:04 [facility] PAP ACOG PANEL 2: 23 to 31on 10-24-2021 . . Normal [facility] Comment on above: Performed By: #### [id number] #### [facility] [address] [address] [address] Aura Griffiths Age Gdln ACOG Testing 21-29 [facility] Comment on above: Performed By: #### [id number] #### [facility] [address] [address] [address] Aura Griffiths DIAGNOSIS: Comment [facility] Comment on above: Result Comment: NEGA TIVE FOR INTRAEPITHELIAL LESION OR MALIGNANCY. Performed By: #### [id number] #### [facility] [address] [address] [address] Aura Griffiths Methodology: Comment Normal [facility] Comment on above: Result Comment: This liquid based ThinPrep(R) pap test was screened with the use of an image guided system. Performed By: #### [id number] #### [facility] [address] [place] [address] Dr. Aura Griffiths Note: Comment [facility] Comment on above: Result Comment: The Pap smear is a screening test designed to aid in the detection of premalignant and malignant conditions of the uterine cervix. It is not a diagnostic procedure and should not be used as the sole means of detecting cervical cancer. Both false-positive and false-negative reports do occur. . Performed By: #### [id number] #### [facility] [address] [place] [address] Dr. Aura Griffiths Performed by: Comment Normal [facility] Comment on above: Result Comment: Radha Trevino, Service Order Dispatcher Chief (ASCP) Performed By: #### [id number] #### [facility] [address] [place] [address] Dr. Aura Griffiths Reflex Criteria: Comment Normal [facility] Comment on above: Result Comment: The HPV DNA reflex criteria were not met with this specimen result therefore, no HPV testing was performed. . Performed By: #### [id number] #### [facility] [address] [place] [address] Dr. Aura Griffiths Specimen adequacy: Comment Normal [facility] Comment on above: Result Comment: Sati sfactory for evaluation. Endocervical and/or squamous metaplastic cells (endocervical component) are present. Performed By: #### [id number] #### [facility] [address] [place] [address] Dr. Aura Griffiths Vital Signs Date Time Vital Sign Value Performing Clinician Aleksandr dobbs 09-25-2024 08:58-0500 Body mass index (BMI) [Ratio] 45.49 kg/m2 [email or web address] DO Work Phone: [facility] 09-25-2024 08:58-0500 Body weight 120.2 kg Carrie Ora DO Work Phone: [facility] 09-25-2024 08:58-0500 Diastolic blood pressure 72 mm[Hg] Carrie Ora DO Work Phone: [facility] 09-25-2024 08:58-0500 Systolic blood pressure 122 mm[Hg] Carrie Ora DO Work Phone: [facility] 2024 09:48-0500 Body mass index (BMI) [Ratio] 44.97 kg/m2 Karla OSPINA Work Phone: [facility] 2024 09:48-0500 Body weight 118.84 kg Karla OSPINA Work Phone: [facility] 2024 09:48-0500 Diastolic blood pressure 70 mm[Hg] Karla OSPINA Work Phone: [facility] 2024 09:48-0500 Systolic blood pressure 120 mm[Hg] Karla OSPINA Work Phone: [facility] 08-14-2024 11:20-0500 Body mass index (BMI) [Ratio] 44.53 kg/m2 Carrie Ora DO Work Phone: [facility] 08-14-2024 11:20-0500 Body weight 117.66 kg Carrie Ora DO Work Phone: [facility] 08-14-2024 11:20-0500 Diastolic blood pressure 82 mm[Hg] Carrie Ora DO Work Phone: [facility] 08-14-2024 11:20-0500 Systolic blood pressure 124 mm[Hg] Carrie Ora DO Work Phone: [facility] 07-17-2024 10:48-0500 Body mass index (BMI) [Ratio] 45.28 kg/m2 Carrie Ora DO Work Phone: [facility] 07-17-2024 10:48-0500 Body weight 119.66 kg Carrie Ora DO Work Phone: [facility] 07-17-2024 10:48-0500 Diastolic blood pressure 70 mm[Hg] Carrie Ora DO Work Phone: [facility] 07-17-2024 10:48-0500 Systolic blood pressure 120 mm[Hg] Carrie Ora DO Work Phone: [facility] 06-17-2024 10:48-0400 Body mass index (BMI) [Ratio] 44.99 kg/m2 Carrie Ora DO Work Phone: [facility] 06-17-2024 10:48-0400 Body weight 118.9 kg Carrie Ora DO Work Phone: [facility] 06-17-2024 10:48-0400 Diastolic blood pressure 70 mm[Hg] Carrie Ora DO Work Phone: [facility] 06-17-2024 10:48-0400 Systolic blood pressure 120 mm[Hg] Carrie Ora DO Work Phone: [facility] 05-16-2024 09:16-0400 Body mass index (BMI) [Ratio] 46 kg/m2 [facility] 05-16-2024 09:16-0400 Body weight 121.56 kg [facility] 05-16-2024 09:16-0400 Diastolic blood pressure 70 mm[Hg] [facility] 05-16-2024 09:16-0400 Systolic blood pressure 120 mm[Hg] [facility] Encounters Encounter Date Encounter Type Care Provider Facility Start: 10-07-2024 End: 10-07-2024 Clinisync Result Encounter Carrie Ora DO Work Phone: [facility] External Department Unsolicited Start: 10-07-2024 End: 10-07-2024 Clinisync Result Encounter Carrie Ora DO Work Phone: [facility] External Department Unsolicited Start: 09-25-2024 End: 09-25-2024 Bamboo flowsheet Carrie Ora DO Work Phone: [facility] Start: 09-25-2024 End: 09-25-2024 Bamboo flowsheet Carrie Ora DO Work Phone: [facility] Start: 09-25-2024 End: 09-25-2024 flow sheet Carrie Ora DO Work Phone: [facility] Comment on above: Second trimester pre gnancy; 27 weeks gestation of ; Elevated glucose tolerance test Start: 09-25-2024 End: 09-25-2024 ambulatory CARRIE ORA Not Available Start: 2024 End: 2024 Bamboo flowsheet Karla OSPINA Work Phone: [facility] Start: 2024 End: 2024 Bamboo flowsheet Karla OSPINA Work Phone: [facility] Start: 2024 End: 2024 flow sheet Karla OSPINA Work Phone: [facility] Comment on above: 25 weeks gestation o f ; Second trimester ; UTI symptoms Start: 2024 End: 2024 ambulatory KARLA BURNS Not Available Start: 08-14-2024 End: 08-14-2024 Bamboo flowsheet Carrie Ora DO Work Phone: [facility] Start: 08-14-2024 End: 08-14-2024 Bamboo flowsheet Carrie Ora DO Work Phone: [facility] Start: 08-14-2024 End: 08-14-2024 flow sheet Carrie Ora DO Work Phone: [facility] Comment on above: Second trimester pre gnancy; 21 weeks gestation of Start: 08-14-2024 End: 08-14-2024 ambulatory CARRIE ORA Not Available Start: 08-12-2024 End: 08-12-2024 Clinisync Result Encounter Carrie Ora DO Work Phone: [facility] Unsolicited Start: 08-12-2024 End: 08-12-2024 Clinisync Result Encounter Carrie Ora DO Work Phone: [facility] Unsolicited Start: 07-30-2024 End: 07-30-2024 Clinisync Result Encounter Carrie Ora DO Work Phone: [facility] Unsolicited Start: 07-30-2024 End: 07-30-2024 Clinisync Result Encounter Carrie Ora DO Work Phone: [facility] Unsolicited Start: 07-17-2024 End: 07-17-2024 Bamboo flowsheet Carrie Ora DO Work Phone: [facility] Start: 07-17-2024 End: 07-18-2024 Bamboo flowsheet Carrie Ora DO Work Phone: [facility] Start: 07-17-2024 End: 07-18-2024 External Result Encounter Carrie Ora DO Work Phone: [facility] Unsolicited Start: 07-17-2024 End: 07-17-2024 flow sheet Carrie Ora DO Work Phone: [facility] Comment on above: 17 weeks gestation o f ; Second trimester ; Exposure to STD; Vaginal discharge; Screening, , for anatomic survey; History of gestational diabetes Start: 07-17-2024 End: 07-17-2024 ambulatory CARRIE ORA Not Available Start: 06-17-2024 End: 06-17-2024 Bamboo [...] 06-17-2024 ambulatory CARRIE ORA Not Available Start: 05-30-2024 End: 05-30-2024 Clinisync Result Encounter Carrie Ora DO Work Phone: [facility] Unsolicited Start: 05-30-2024 End: 05-30-2024 Clinisync Result Encounter Carrie Ora DO Work Phone: [facility] Unsolicited Start: 05-16-2024 End: 05-16-2024 Office outpatient visit 5 minutes [facility] Comment on above: GA: 9w0d Start: 05-16-2024 End: 05-16-2024 ambulatory CARRIE PAYAN Not Available Start: 04-07-2024 End: 04-07-2024 ambulatory KARLA BURNS Not Available Start: 03-11-2022 End: 03-11-[address] CARRIE PAYAN Facility:[facility] Start: 10-18-2021 End: 10-18-[address] CARRIE PAYAN Facility:[facility] Procedures Date Procedure Procedure Detail Performing Clinician Start: 10-07-2024 GLUCOSE TOLERANCE 3 HOUR Carrie Ora DO Work Phone: Start: 09-25-2024 Urnls dip stick/tabl et rgnt non-auto w/o micrscp Carrie Ora DO Work Phone: Start: 2024 Urnls dip stick/tabl et rgnt non-auto w/o micrscp Karla Burns PA Work Phone: Start: 08-14-2024 Urnls dip stick/tabl et rgnt non-auto w/o micrscp Carrie Ora DO Work Phone: Start: 08-12-2024 ALL CBC WITH AUTO DIFF Carrie Ora DO Work Phone: Start: 07-30-2024 GLUCOSE 1 HOUR Carrie Fa zio DO Work Phone: Start: 07-17-2024 RECURRENT VAGINITIS (HTRX) Carrie Ora DO Work Phone: Start: 07-17-2024 Urnls dip stick/tabl et rgnt non-auto w/o micrscp Carrie Ora DO Work Phone: Start: 06-17-2024 Urnls dip stick/tabl et rgnt non-auto w/o micrscp Carrie Ora DO Work Phone: Start: 05-30-2024 ALL CBC WITH AUTO DIFF Carrie Ora DO Work Phone: Start: 05-16-2024 Urine test visual color cmprsn meths Carrie Ora DO Work Phone: Start: 04-07-2024 Cytp cerv/vag auto t hin layer prep mnl screen Carrie Payan DO Work Phone: Plan of Treatment Date Care Activity Detail Author Start: 10-09-2024 End: 10-09-2024 Patient encounter procedure 10/09/2024 10:40 AM EST Routine [facility] [address] [facility] [address] Carrie Payan, DO [address] [place] [address] [place] [address] [facility] Start: 10-09-2024 End: 10-09-2024 Professional / ancillary services management 10/09/2024 10:00 AM EST Ancillary Procedure [facility] [address] [place] [address] [facility] Start: 09-25-2024 End: 09-25-2025 Measurement of glucose 3 hours after glucose challenge for glucose tolerance test Glucose tolerance, 3 hours Lab Routine Elevated glucose tolerance test Expected: 09/25/2024 (Approximate), Expires: 09/25/2025 [facility] Comment on above: Expected: 09/25/2024 (Approximate), Expires: 09/25/2025 Start: 09-25-2024 End: 09-25-2025 US for US OB follow up transabdominal approach Imaging Routine Second trimester 27 weeks gestation of Elevated glucose tolerance test Expected: 09/25/2024, Expires: 09/25/2025 [facility] Work Phone: Comment on above: Expected: 09/25/2024 , Expires: 09/25/2025 Start: 09-25-2024 End: 09-25-2024 Patient encounter procedure [facility] Comment on above: Arrived Start: 2024 End: 2024 Patient encounter procedure [facility] Comment on above: Arrived Start: 08-14-2024 End: 08-14-2024 Patient encounter procedure [facility] Comment on above: Arrived Start: 08-07-2024 End: 08-07-2024 Professional / ancillary services management 08/07/2024 8:30 AM EST Ancillary Procedure [facility] [address] [place] [id number] [facility] Start: 07-17-2024 End: 09-16-2024 Alpha fetoprotein, maternal Alpha fetoprotein, maternal Lab Routine Second trimester Expected: 07/17/2024 (Approximate), Expires: 09/16/2024 [facility] Comment on above: Expected: 07/17/2024 (Approximate), Expires: 09/16/2024 Start: 07-17-2024 End: 07-17-2025 Measurement of glucose 1 hour after glucose challenge for glucose tolerance test GTT, 1 hour Lab Routine History of gestational diabetes Expected: 07/17/2024 (Approximate), Expires: 07/17/2025 [facility] Comment on above: Expected: 07/17/2024 (Approximate), Expires: 07/17/2025 Start: 07-17-2024 End: 07-17-2025 US for US OB ANATOMY SINGLE W US OB CERVICAL LENGTH Imaging Routine Screening, , for anatomic survey Expected: 07/17/2024 (Approximate), Expires: 07/17/2025 [facility] Comment on above: Expected: 07/17/2024 (Approximate), Expires: 07/17/2025 Start: 07-15-2024 End: 07-15-2024 Patient encounter procedure 07/15/2024 10:50 AM EST Routine [facility] [address] [place] [address] Carrie Payan, DO [address] [place] [address] [facility] Start: 06-17-2024 End: 06-17-2024 Patient encounter procedure [facility] Comment on above: Arrived Start: 05-16-2024 End: 05-16-2025 ABO/Rh ABO/Rh Lab Routine Missed menses Expected: 05/16/2024 (Approximate), Expires: 05/16/2025 [facility] Comment on above: Expected: 05/16/2024 (Approximate), Expires: 05/16/2025 Start: 05-16-2024 End: 05-16-2025 Blood type and Indirect antibody screen panel - Blood Type and screen Lab Routine Missed menses Expected: 05/16/2024 (Approximate), Expires: 05/16/2025 [facility] Work Phone: Comment on above: Expected: 05/16/2024 (Approximate), Expires: 05/16/2025 Start: 05-16-2024 End: 05-16-2025 Drugs of abuse panel - Urine by Screen method Rapid drug screen, urine Lab Routine Encounter for supervision of normal first in first trimester , unspecified gestational age Expected: 05/16/2024 (Approximate), Expires: 05/16/2025 [facility] Comment on above: Expected: 05/16/2024 (Approximate), Expires: 05/16/2025 Start: 05-16-2024 End: 05-16-2025 US Pelvis transvaginal US OB transvaginal Imaging Routine Missed menses Expected: 05/16/2024 (Approximate), Expires: 05/16/2025 [facility] Comment on above: Expected: 05/16/2024 (Approximate), Expires: 05/16/2025 Bacteria identified in Urine by Culture Urine culture Microbiology Routine Missed menses Ordered: 05/16/2024 [facility] Comment on above: Ordered: 05/16/2024 Bacteria identified in Urine by Culture Urine culture Microbiology Routine UTI symptoms Ordered: 2024 [facility] Work Phone: Comment on above: Ordered: 2024 CBC W Auto Different ial panel - Blood CBC and differential Lab Routine Missed menses Ordered: 05/16/2024 [facility] Comment on above: Ordered: 05/16/2024 CHLAMYDIA TRACHOMATI S (GENITO/STI) CHLAMYDIA TRACHOMATIS (GENITO/STI) Lab Routine Exposure to STD Ordered: 07/17/2024 [facility] Comment on above: Ordered: 07/17/2024 Hemoglobin A1c/Hemoglobin.total in Blood Hemoglobin A1c Lab Routine Missed menses Ordered: 05/16/2024 [facility] Comment on above: Ordered: 05/16/2024 Hepatitis B virus surface Ag [Presence] in Serum or Plasma by Immunoassay Hepatitis B surface antigen Lab Routine Missed menses Ordered: 05/16/2024 [facility] Comment on above: Ordered: 05/16/2024 Hepatitis C virus Ab [Presence] in Serum or Plasma by Immunoassay Hepatitis C antibody Lab Routine Missed menses Ordered: 05/16/2024 [facility] Comment on above: Ordered: 05/16/2024 HIV-1/HIV-2 antigen/antibody combination immunoassay HIV-1 and HIV-2 antibodies Lab Routine Missed menses Ordered: 05/16/2024 [facility] Comment on above: Ordered: 05/16/2024 Neisseria gonorrhoea e DNA [Presence] in Unspecified specimen by XIOMARA with probe detection Neisseria gonorrhea DNA probe, direct Lab Routine Exposure to STD Ordered: 07/17/2024 [facility] Comment on above: Ordered: 07/17/2024 Reagin Ab [Presence] in Serum by RPR RPR Lab Routine Missed menses Ordered: 05/16/2024 [facility] Comment on above: Ordered: 05/16/2024 Rubella antibody, IgG Rubella an tibody, IgG Lab Routine Missed menses Ordered: 05/16/2024 [facility] Comment on above: Ordered: 05/16/2024 SURESWAB(R) ADVANCED VAGINITIS PLUS, TMA SURESWAB(R) ADVANCED VAGINITIS PLUS, TMA Pathology and Cytology Routine Vaginal discharge Ordered: 07/17/2024 [facility] Work Phone: Comment on above: Ordered: 07/17/2024 Payers Date Payer Category Payer Unknown [id number] [address] [facility] [id number] 2023 Unknown BCBS BCBS [id number] [id number] 2023-Present [phone] [address] [place] [address] [id number] 2023 Unknown [id number] 1997 Unknown [id number] 1997 Unknown [id number] 93 1997 Unknown [id number] 259 1997 Unknown [id number] 259 1997 Unknown [id number] 259 1997 Unknown [id number] 259 1997 Unknown [id number] 259 1997 Unknown [id number] 259 1997 Unknown [id number] 259 1959 Private Health Insurance [facility] [id number] 1957 Unknown [id number] Social History Date Type Detail Facility Start: 07-31-2023 Tobacco smoking stat [facility] Never smoked tobacco [facility] Start: 07-31-2023 Tobacco use and exposure Smokeless t obacco non-user [facility] Start: 05-16-2024 End: 2024 Alcoholic beverage intake Lifetime non-drinker (finding) [facility] Start: 07-31-2023 End: 04-07-2024 History of Social function [facility] Start: 07-31-2023 End: 04-07-2024 Tobacco use panel [facility] Start: 03-28-2024 [facility] Start: 1995 Sex assigned at Female [facility] Start: 01-23-2023 Gender identity Identifies as female gender (finding) [facility] Clinical Notes 05-16-2024 to 09-25-2024 Kathleen Dickens LPN - 09/25/2024 9:00 AM Ke Tania, BHAVESH - 2024 9:30 AM Alvin Ventura, VIS[employer]SE CE[employer]AR WORKER - 08/14/2024 10:40 AM TEEalessia Dickens, VIS[employer]SE CELLAR WORKER - 07/17/2024 10:30 AM EST Note Date & Type Note Facility 09-25-2024 History of Presen t illness Narrative Reason for Appointment: Patient ID: Olga Flanagan is a 29 y.o. female who presents for Routine Visit Patient presents today for Return OB appointment. MEDICATIONS Current Outpatient Medications Medication Instructions aspirin 81 mg, Oral, Daily nitrofurantoin (macrocrystal-monohydrate) (MACROBID) 100 mg, Oral, 2 times daily ALLERGIES No Known Allergies PROBLEMS Active Ambulatory Problems Diagnosis Date Noted No Active Ambulatory Problems Resolved Ambulatory Problems Diagnosis Date Noted No Resolved Ambulatory Problems Past Medical History: Diagnosis Date Depression screening Encounter for gynecological examination (general) (routine) without abnormal findings Family planning Insulin resistance Morbid obesity with BMI of 40.0-44.9, adult ([facility]) Negative test On Depo-Provera for contraception HISTORY PAST MEDICAL HISTORY SOCIAL HISTORY Past Medical History: Diagnosis Date Depression screening Encounter for gynecological examination (general) (routine) without abnormal findings Family planning Insulin resistance Morbid obesity with BMI of 40.0-44.9, adult ([facility]) Negative test On Depo-Provera for contraception Social History Tobacco Use Smoking status: Never Smokeless tobacco: Never Substance Use Topics Alcohol use: Never Drug use: Never FAMILY HISTORY Family History Problem Relation Name Age of Onset Hypertension Maternal Grandmother Hyperlipidemia Maternal Grandmother Hypertension Paternal Grandmother Heart disease Paternal Grandfather Hypertension Paternal Grandfather SURGICAL HISTORY No past surgical history on file. REVIEW OF SYSTEMS Review of Systems: Review [...] nursing note reviewed. Exam conducted with a marketing secretary present. Vitals: Estimated body mass index is 45.49 kg/m as calculated from the following: Height as of 01/24/23: 5' 4 . Weight as of this encounter: 265 lb. BP: 122/72 Patient's last menstrual period was 03/14/2024. ASSESSMENT & PLAN ICD-10-CM 1. Second trimester Z34.92 POCT urinalysis dipstick manually resulted US OB follow up transabdominal approach aspirin 81 MG EC tablet 2. 27 weeks gestation of Z3A.27 US OB follow up transabdominal approach aspirin 81 MG EC tablet 3. Elevated glucose tolerance test R73.09 US OB follow up transabdominal approach Glucose tolerance, 3 hours Glucose tolerance, 3 hours Patient presents today for a routine obstetrics appointment. Patient is currently 27w6d with a Estimated Date of Delivery: 12/19/24. Discussed patient obtaining another 3 hour gtt. Order given and patient to also schedule growth scan to be done prior to next appointment. Patient to RTC in 2 weeks. Documented by Kathleen Dickens LPN on behalf of: Carrie Payan DO documented in this encounter [facility] 2024 History of Presen t illness Narrative Reason for Appointment: Patient ID: Olga Flanagan is a 29 y.o. female who presents for Routine Visit Patient presents today for Return OB appointment. MEDICATIONS Current Outpatient Medications Medication Instructions cephalexin (KEFLEX) 500 mg, Oral, 3 times daily ALLERGIES No Known Allergies PROBLEMS Active Ambulatory Problems Diagnosis Date Noted No Active Ambulatory Problems Resolved Ambulatory Problems Diagnosis Date Noted No Resolved Ambulatory Problems Past Medical History: Diagnosis Date Depression screening Encounter for gynecological examination (general) (routine) without abnormal findings Family planning Insulin resistance Morbid obesity with BMI of 40.0-44.9, adult ([facility]) Negative test On Depo-Provera for contraception HISTORY PAST MEDICAL HISTORY SOCIAL HISTORY Past Medical History: Diagnosis Date Depression screening Encounter for gynecological examination (general) (routine) without abnormal findings Family planning Insulin resistance Morbid obesity with BMI of 40.0-44.9, adult ([facility]) Negative test On Depo-Provera for contraception Social [...] SYSTEMS Review of Systems: Review of Systems Constitutional: Negative. HENT: Negative. Eyes: Negative. Respiratory: Negative. Cardiovascular: Negative. Gastrointestinal: Negative. Genitourinary: Negative. Musculoskeletal: Negative. Skin: Negative. Neurological: Negative. All other systems reviewed and are negative. Hematological: Negative. Endocrine: Negative. Allergic/Immunologic: Negative. OBJECTIVE Objective: Physical Exam Constitutional: Appearance: Normal appearance. She is well-developed and normal weight. HENT: Head: Normocephalic. Cardiovascular: Rate and Rhythm: Normal rate and regular rhythm. Pulses: Normal pulses. Pulmonary: Effort: Pulmonary effort is normal. Breath sounds: Normal breath sounds. Abdominal: General: Bowel sounds are normal. There is no distension. Palpations: Abdomen is soft. Tenderness: There is no abdominal tenderness. There is no guarding or rebound. Musculoskeletal: General: No swelling. Normal range of motion. Right lower leg: No edema. Left lower leg: No edema. Neurological: General: No focal deficit present. Mental Status: She is alert and oriented to person, place, and time. Skin: General: Skin is warm and dry. Psychiatric: Mood and Affect: Mood normal. Behavior: Behavior normal. Thought Content: Thought content normal. Judgment: Judgment normal. Vitals and nursing note reviewed. Exam conducted with a marketing secretary present. Vitals: Estimated body mass index is 44.97 kg/m as calculated from the following: Height as of 01/24/23: 5' 4 . Weight as of this encounter: 262 lb. BP: 120/70 Patient's last menstrual period was 03/14/2024. ASSESSMENT & PLAN ICD-10-CM 1. 25 weeks gestation of Z3A.25 POCT urinalysis dipstick manually resulted 2. Second trimester Z34.92 POCT urinalysis dipstick manually resulted 3. UTI symptoms R39.9 Urine culture cephalexin (Keflex) 500 MG capsule Return OB: Patient presents today for a routine obstetrics appointment. Patient is currently 25w6d . Patient states she is doing well but has complaints of being tired due to current . Patient has verbalizes frequent movement. labor precautions was discussed/given and patient was instructed to perform kick counts three times a day. Urine sent for Cultures and Antibiotics sent. Patients urine is positive for nitrates, we will treat with keflex and send urine for culture Orders Placed This Encounter Procedures Urine culture POCT urinalysis dipstick manually resulted Follow Up: Patient is to return to office in 2 week for routine OB appointment. Documented by Shannan Peña LPN on behalf of: BHAVESH Javier documented in this encounter [facility] 08-14-2024 History of Presen t illness Narrative Reason [...] Morbid obesity with BMI of 40.0-44.9, adult ([facility]) Negative test On Depo-Provera for contraception HISTORY PAST MEDICAL HISTORY SOCIAL HISTORY Past Medical History: Diagnosis Date Depression screening Encounter for gynecological examination (general) (routine) without abnormal findings Family planning Insulin resistance Morbid obesity with BMI of 40.0-44.9, adult ([facility]) Negative test On Depo-Provera for contraception Social [...] SYSTEMS Review of Systems: Review of Systems Constitutional: Negative. HENT: Negative. Eyes: Negative. Respiratory: Negative. Cardiovascular: Negative. Gastrointestinal: Negative. Genitourinary: Negative. Musculoskeletal: Negative. Skin: Negative. Neurological: Negative. All other systems reviewed and are negative. Hematological: Negative. Endocrine: Negative. Allergic/Immunologic: Negative. OBJECTIVE Objective: Physical Exam Constitutional: Appearance: Normal [...] nursing note reviewed. Exam conducted with a marketing secretary present. Vitals: Estimated body mass index is 44.53 kg/m as calculated from the following: Height as of 01/24/23: 5' 4 . Weight as of this encounter: 259 lb 6.4 oz. BP: 124/82 Patient's last menstrual period was 03/14/2024. ASSESSMENT & PLAN ICD-10-CM 1. Second trimester Z34.92 POCT urinalysis dipstick manually resulted 2. 21 weeks gestation of Z3A.21 POCT urinalysis dipstick manually resulted Patient presents today for a routine obstetrics appointment. Patient is currently 21w6d with a Estimated Date of Delivery: 12/19/24. Pt starting to feel better with being on antibiotic. Pt to return in 4 weeks for scheduled Ob appt. Documented by Bita Ventura LPN on behalf of: Carrie Payan DO documented in this encounter [facility] 07-17-2024 History of Presen t illness Narrative [...] Morbid obesity with BMI of 40.0-44.9, adult ([facility]) Negative test On Depo-Provera for contraception HISTORY PAST MEDICAL HISTORY SOCIAL HISTORY Past Medical History: Diagnosis Date Depression screening Encounter for gynecological examination (general) (routine) without abnormal findings Family planning Insulin resistance Morbid obesity with BMI of 40.0-44.9, adult ([facility]) Negative test On Depo-Provera for contraception Social [...] nursing note reviewed. Exam conducted with a marketing secretary present. Vitals: Estimated body mass index is [...] Carrie Payan DO documented in this encounter [facility] 06-17-2024 History of Presen t illness Narrative [...] Morbid obesity with BMI of 40.0-44.9, adult ([facility]) Negative test On Depo-Provera for contraception HISTORY PAST MEDICAL HISTORY SOCIAL HISTORY Past Medical History: Diagnosis Date Depression screening Encounter for gynecological examination (general) (routine) without abnormal findings Family planning Insulin resistance Morbid obesity with BMI of 40.0-44.9, adult ([facility]) Negative test On Depo-Provera for contraception Social [...] nursing note reviewed. Exam conducted with a marketing secretary present. Vitals: Estimated body mass index is [...] or undercooked meat, and stay away from formerly [facility]. Patient has been consulted regarding any [...] Karla Burns PA-C documented in this encounter [facility] 05-16-2024 History of Presen t illness Narrative Reason for Appointment: Patient ID: Olga Flanagan is a 28 y.o. female who presents for Amenorrhea Patient presents today for a Nurse OB Intake appointment. Patient is 9w0d with a Estimated Date of Delivery: 12/19/24 OB History Para Term AB Living 3 1 1 1 1 SAB IAB Ectopic Multiple Live Births 1 1 # Outcome Date GA Lbr Stefano/2nd Weight Sex Type Anes PTL Lv 3 Current 2 SAB 07/2023 1 Term 11/2019 7 lb 12 oz M DEC Current Medications: currently has no medications in their medication list. Medical History: Active Ambulatory Problems Diagnosis Date Noted No Active Ambulatory Problems Resolved Ambulatory Problems Diagnosis Date Noted No Resolved Ambulatory Problems Past Medical History: Diagnosis Date Depression screening Encounter for gynecological examination (general) (routine) without abnormal findings Family planning Insulin resistance Morbid obesity with BMI of 40.0-44.9, adult ([facility]) Negative test On Depo-Provera for contraception Family History Problem Relation Name Age of Onset Hypertension Maternal Grandmother Hyperlipidemia Maternal Grandmother Hypertension Paternal Grandmother Heart disease Paternal Grandfather Hypertension Paternal Grandfather Social History Tobacco Use Smoking status: Never Smokeless tobacco: Never Substance Use Topics Alcohol use: Never Drug use: Never History reviewed. No pertinent surgical history. No Known Allergies Vitals: Estimated body mass index is 46 kg/m as calculated from the following: Height as of 01/24/23: 5' 4 . Weight as of this encounter: 268 lb. BP: 120/70 Patient's last menstrual period was 03/14/2024. Assessment/Plan Diagnoses and all orders for this visit: Missed menses - Type and screen; Future - ABO/Rh; Future - CBC and differential - Hemoglobin A1c - RPR - Rubella antibody, IgG - Hepatitis B surface antigen - Hepatitis C antibody - HIV-1 and HIV-2 antibodies - Urine culture - US OB transvaginal; Future - POCT , urine manually resulted Encounter for supervision of normal first in first trimester - Rapid drug screen, urine; Future , unspecified gestational age - Rapid drug screen, urine; Future Nurse Note: OB Intake: Patient presents today for first OB visit. Patients history has been reviewed in great detail including any potential risks. Patient signed consent forms and patient desires testing in both trimesters. Patient currently has no complaints and has been advised to drink 6-8 glasses of water a day, eat no raw or undercooked meat, and stay away from formerly [facility]. Patient has also been advised to not change litter boxes and eat 6 small meals a day. Patient has been consulted regarding the do's and don'ts of . Patient was given labs and all questions and concerns were answered. Follow Up: Patient is to return in 4 weeks for routine OB appointment. Follow Up: Patient is to have labs drawn at directed and return to office for initial OB appointment with provider. Patient may call office as needed with any concerns or questions. Nurse Visit Completed by: Shannan Peña LPN documented in this encounter [facility] Evaluation note Diagnosis 13 weeks gestation of Second trimester state, incidental documented [facility] encounter [facility] Diagnosis 17 weeks gestation of Second trimester state, incidental Exposure to STD Vaginal discharge Leukorrhea, not specified as infective Screening, , for anatomic survey Encounter for anatomic survey History of gestational diabetes Personal history of other genital system and obstetric disorders documented [facility] Diagnosis Missed menses Encounter for supervision of normal first in first trimester , unspecified gestational age documented in this encounter [facility]* Diagnosis Second trimester state, incidental 21 weeks gestation of documented in this [facility]* Diagnosis 25 weeks gestation of Second trimester state, incidental UTI symptoms documented [facility]* Diagnosis Second trimester state, incidental 27 weeks gestation of Elevated glucose tolerance test Impaired glucose tolerance test documented in this encounter [facility] Summary Purpose Family History No Family History Records FoundNo Family History Records FoundNo Family History Records Found Advance Directives No Advanced Directives Records FoundNo Advanced Directives Records FoundNo Advanced Directives Records Found Additional Source Comments INFORMATION SOURCE (unrecogn ized section and content) DATE CREATED AUTHOR 04/05/2022 [facility] DATE CREATED AUTHOR AUTHOR'S ORGANIZ ATION 04/08/2022 [facility] DATE CREATED AUTHOR AUTHOR'S ORGANIZ ATION 09/27/2024 [facility] Care Teams (unrecognized sec tion and content) Cash Register Servicer Relationship Specialty Start Date End Date Karla Ortega MD [address] [place] [address] PCP - General Family Medicine 01/24/23 Cash Register Servicer Relationship Specialty Start Date End Date Karla Ortega MD [address] [place] [address] PCP - General Family Medicine 01/24/23 Cash Register Servicer Relationship Specialty Start Date End Date Karla Ortega MD [address] [place] [address] PCP - General Family Medicine 01/24/23 Cash Register Servicer Relationship Specialty Start Date End Date Karla Ortega MD [address] [place] [address] PCP - General Family Medicine 01/24/23 Cash Register Servicer Relationship Specialty Start Date End Date Karla Ortega MD [address] [place] [address] PCP - General Family Medicine 01/24/23 Cash Register Servicer Relationship Specialty Start Date End Date Karla Ortega MD [address] [place] [address] PCP - General [facility] Medicine 01/24/23 Cash Register Servicer Relationship Specialty Start Date End Date Karla Ortega MD [address] [place] [address] PCP - General [facility] Medicine 01/24/23 Cash Register Servicer Relationship Specialty Start Date End Date Karla Ortega MD [address] [place] [address] PCP - General Family Medicine 01/24/23 Cash Register Servicer Relationship Specialty Start Date End Date Karla Ortega MD [address] [place] [address] PCP - General [facility] Medicine 01/24/23 Cash Register Servicer Relationship Specialty Start Date End Date Karla Ortega MD [address] [place] [address] PCP - General Family Medicine 01/24/23 Reason for Visit (unrecogniz ed section and content) Reason Comments Routine Visit Reason Comments Amenorrhea FOR RECORDS PERTAINING TO PATIENTS WHO ARE [...] BE BASED ON THE PRIMARY CLINICAL RECORDS. [facility] provides no warranty or guarantee of the accuracy or completeness of information in this document.
[2024-10-10 15:04] LABS: Bilirubin Urine NEGATIVE (NEGATIVE); Blood Urine NEGATIVE (NEGATIVE); Clarity Urine SL CLOUDY (CLEAR); Color Urine YELLOW (YELLOW); Glucose Urine UA NEGATIVE (NEGATIVE); Ketones Urine NEGATIVE (NEGATIVE); Leukocyte Esterase Urine NEGATIVE (NEGATIVE); Nitrite Urine NEGATIVE (NEGATIVE); Protein Urine NEGATIVE (NEG/TRACE); Specific Gravity Urine >=1.030 (1.005-1.025); Urine Microscopic Indicated NO; Urobilinogen Urine 0.2 EU/dL (0.2-1.0)
== END 2024-10-10 15:20 | disposition home or self-care (01) ==
LOC: FBC 13:59
PROVIDERS: Admitting Provider Obstetrics & Gynecology; Visit Provider Obstetrics & Gynecology
DX: O36.8130 Decreased fetal movements, third trimester, not applicable or unspecified (principal); Z3A.30 30 weeks gestation of pregnancy
CPT/HCPCS: 59025; 81003; G0378; G0379

== ENCOUNTER 2024-10-11 20:12 | Observation (INO) | payer BC, SELFPAY ==
--- OUTSIDE RECORDS SUMMARY | 2024-10-11 20:16 | XMS_ITS | CCD ---
Author Organization [facility] Care Team Providers Care Research Statistician Name Role Phone DR CARRIE PAYAN Primary Care Unavailable ANGÉLICA NARAYANAN Attending Unavailable ANGÉLICA NARAYANAN Consulting Unavailable ANGÉLICA NARAYANAN Admitting Unavailable MARQUIS HENSON Consulting Unavailable DR CARRIE PAYAN Consulting Unavailable DR CARRIE PAYAN Primary Care Unavailable DR CARRIE PAYAN Admitting Unavailable ORA, DR BUTLER Attending Unavailable Karla Ortega MD Primary Care Provider [phone] CARRIE PAYAN Attending Unavailable CARRIE PAYAN Attending Unavailable KARLA BURNS Attending Unavailable CARRIE PAYAN Attending Unavailable CARRIE PAYAN Attending Unavailable CARRIE APYAN Attending Unavailable KARLA BURNS Attending Unavailable Medications [...] Test Name Value Interpretation Reference Range Facility US OB FOLLOW UP TRANSABDOMIN AL APPROACHon 10-09-2024 US OB FOLLOW UP TRANSABDOMINAL APPROACH EXAM: US OB FOLLOW UP TRANSABDOMINAL APPROACH HISTORY: Elevated glucose test. TECHNIQUE: Two-dimensional transabdominal grayscale ultrasound imaging of the pelvis was performed. FINDINGS: Gestation: Single Presentation: Cephalic Cardiac Activity: 141 beats per minute Placental Location: Anterior with no sonographic abnormalities identified. Cervical canal: Not visualized Amniotic Fluid Index: 17.6 cm MEASUREMENTS: BPD: 7.8 cm EGA: 31 weeks 3 days HC: 28.4 cm EGA: 31 weeks 1 days AC: 29.2 cm EGA: 33 weeks 1 days FL: 6.2 cm EGA: 32 weeks 0 days HC/AC Ratio: 0.97 The gestational age by today's ultrasound is 32 weeks 0 days (+/- 16 days gestation). Estimated Weight: 1981 grams, +/- 297 grams ( 4 lb 6 oz). Weight Percentile for gestational age: > 97 % IMPRESSION: 1. Single, live intrauterine gestation 29 weeks, 6 days by LMP. Today's ultrasound measurements correlate with a gestational age of 32 weeks 0 days. Estimated weight is 1981 grams, +/- 297 grams ( 4 lb 6 oz) which correlates to greater than 97 %. KASSIDY is 12/04/2024. 2. growth is measuring large for gestational age. Electronically Signed:Electronically signed by ERIC ROONEY II, MD, PHD at 10-Oct-2024 07:43:20 AM [facility] Normal Not Available Comment on above: Order Comment: US OB SCAN FOR GROWTH Estimated Date of Delivery: 12/19/24 Gestational Age as of 09/25/2024: 27w6d GLUCOSE TOLERANCE 3 HOURon 0 10-07-2024 GLUCOSE TOLERANCE 3 HOUR mg/dL [facility] Comment on above: GLU FAST 83 (<95) Co l: 10/07/24 0909 GLU 1HR 163 (<180) Col: 10/07/24 1012 GLU 2HR 146 (<155) Col: 10/07/24 1112 GLU 3HR 83 (<140) Col: 10/07/24 1212 [facility] Urinalysis macro (dipstick) panel (U)on 09-25-2024 Bilirubin, UA Negative Negative - 4(70) +++ mg/dL [facility] Blood, UA Negative Negative - 50 Roberto/mcL [facility] Healthcare Clarity, UA Clear [facility] re Color, UA Yellow [facility] Glucose, UA Negative Negative - 1999(110) ++++ mg/dL [facility] Interpretation and review of laboratory results Abnormal [facility] Ketones, UA Negative Negative - 160(16) ++++ mg/dL [facility] Leukocytes, UA Positive Negative - 500+++ Christian/mcL [facility] Comment on above: small Nitrite, UA Negative Negative - Positive [facility] pH, UA 8.5 5 - 9 [facility] Protein, UA Negative Negative - 1999(20) ++++ mg/dL [facility] Spec Grav, UA 1.02 1 - 1.03 [facility] Urobilinogen, UA 1.0 0.2 - 12 mg/dL [facility] macro (dipstick) panel (U)on 2024 Bilirubin, UA Negative Negative - 4(70) +++ mg/dL [facility] Blood, UA Negative Negative - 50 Roberto/mcL [facility] Healthcare Clarity, UA Clear [facility] Color, UA Yellow [facility] Glucose, UA Negative Negative - 1999(110) ++++ mg/dL [facility] Interpretation and review of laboratory results Abnormal [facility] Ketones, UA Negative Negative - 160(16) ++++ mg/dL [facility] Leukocytes, UA Moderate Negative - 500+++ Christian/mcL [facility] Nitrite, UA Positive Negative - Positive [facility] pH, UA 7 5 - 9 [facility] Protein, UA Positive Negative - 1999(20) ++++ mg/dL [facility] Comment on above: 100 Spec Grav, UA 1.02 1 - 1.03 [facility] Urobilinogen, UA 1.0 0.2 - 12 mg/dL [facility] e Urinalysis macro (dipstick) panel (U)on 08-14-2024 Bilirubin, UA Negative Negative - 4(70) +++ mg/dL [facility] Blood, UA Negative Negative - 50 Roberto/mcL [facility] Clarity, UA Clear [facility] re Color, UA Yellow [facility] Glucose, UA Negative Negative - 1999(110) ++++ mg/dL [facility] Interpretation and review of laboratory results Abnormal [facility] Ketones, UA Negative Negative - 160(16) ++++ mg/dL [facility] Leukocytes, UA Negative Negative - 500+++ Christian/mcL [facility] Nitrite, UA Negative Negative - Positive [facility] pH, UA 5.5 5 - 9 [facility] Protein, UA Negative Negative - 1999(20) ++++ mg/dL [facility] Spec Grav, UA 1.02 1 - 1.03 [facility] Urobilinogen, UA 1.0 0.2 - 12 mg/dL [facility] e ALL CBC WITH AUTO DIFFon BASOPHILS ABSOLUTE AUTO 0 [facility] Basophils/100 WBC (Bld) 0.3 % 0.2 - 2.0 % [facility] Eosinophils/100 WBC (Bld) 0.9 % 0.9 - 7.0 % [facility] Erythrocyte distribution width (RBC) [Ratio] 14.8 % 11.0 - 15.0 % [facility] Hematocrit (Bld) [Volume fraction] 36.3 % 36.0 - 48.0 % [facility] e Hemoglobin (Bld) [Mass/Vol] 11.9 g/dL Low 12.0 - 16.0 g/dL [facility] IMMATURE GRANULOCYTES ABS AUTO 0.04 High [facility] Immature granulocytes/100 WBC (Bld) 0.4 % 0.0 - 0.5 % [facility] Interpretation and review of laboratory results Abnormal [facility] LYMPHOCYTES ABSOLUTE AUTO 1.6 [facility] Lymphocytes/100 WBC (Bld) 15 % Low 20.5 - 60.0 % [facility] MCH (RBC) [Entitic mass] 27.2 pg 26.7 - 34.0 pg [facility] MCHC (RBC) [Mass/Vol] 32.8 g/dL 29.9 - 35.2 g/dL [facility] MCV (RBC) [Entitic vol] 83.1 fL 81.0 - 99.0 fL [facility] MONOCYTES ABSOLUTE AUTO 0.8 [facility] Monocytes/100 WBC (Bld) 7.4 % 1.7 - 12.0 % [facility] NEUTROPHILS ABSOLUTE AUTO 7.8 High [facility] Neutrophils/100 WBC (Bld) 76 % High 43.0 - 75.0 % [facility] Platelet mean volume (Bld) [Entitic vol] 9.2 fL Low 9.5 - 13.5 fL [facility] Healthc are TBH EO # 0.1 [facility] TBH PLT 322 [facility] Health[facility] e TB RBC 4.37 [facility] TB WBC 10.3 [facility] e [facility] e GLUCOSE 1 HOURon 07-30-2024 Glucose [Mass/Vol] 173 mg/dL High NINF - 13 0 mg/dL [facility] Interpretation and review of laboratory results Abnormal [facility]car e RECURRENT VAGINITIS (HTRX)on 07-18-2024 ATOPOBIUM VAGINAE 21.066 Abnormal [facility] ATOPOBIUM VAGINAE Detected Abnormal [facility] BVAB 2,3 (BACTERIAL VAGINOSIS ASSOCIATED BACTERIA 2, 3); MOBILUNCUS SPP 20.228 Abnormal [facility] BVAB 2,3 (BACTERIAL VAGINOSIS ASSOCIATED BACTERIA 2, 3); MOBILUNCUS SPP Detected Abnormal [facility] BLANCA ALBICANS, PARAPSILOSIS, TROPICALIS 0 [facility] BLANCA ALBICANS, PARAPSILOSIS, TROPICALIS Not detected [facility] BLANCA GLABRATA 0 [facility] BLANCA GLABRATA Not detected [facility] BL[facility]CA KRUSEI Not detected [facility] CHLAMYDIA TRACHOMATIS 0 [facility] CHLAMYDIA TRACHOMATIS Not detected [facility] ERMB, C; MEFA 26.225 Abnormal [facility] ERMB, C; MEFA Detected Abnormal [facility] GARDNERELLA VAGINALIS 21.744 Abnormal [facility] GARDNERELLA VAGINALIS Detected Abnormal [facility] Interpretation and review of laboratory results Abnormal [facility] MEGASPHAERA (TYPES 1, 2) 0 [facility] MEGASPHAERA (TYPES 1, 2) Not detected [facility] MYCOPLASMA GENITALIUM 0 [facility] MYCOPLASMA GENITALIUM Not detected [facility] NEISSERIA GONORRHOEAE 0 [facility] NEISSERIA GONORRHOEAE Not detected [facility] TET B, TET M 24.757 Abnormal [facility] Healthc are TET B, TET M Detected Abnormal [facility] are TRICHOMONAS VAGINALIS 0 [facility] TRICHOMONAS VAGINALIS Not detected [facility] Urinalysis macro (dipstick) panel (U)on 07-17-2024 Bilirubin, UA Negative Negative - 4(70) +++ mg/dL [facility] Blood, UA Negative Negative - 50 Roberto/mcL [facility] Healthcare Clarity, UA Clear [facility] re Color, UA Yellow [facility] Glucose, UA Negative Negative - 1999(110) ++++ mg/dL [facility] Interpretation and review of laboratory results Abnormal [facility] Ketones, UA Positive Negative - 160(16) ++++ mg/dL [facility] Leukocytes, UA Trace Negative - 500+++ Christian/mcL [facility] Healthcare Nitrite, UA Negative Negative - Positive [facility] pH, UA 5.5 5 - 9 [facility] Protein, UA Trace Negative - 1999(20) ++++ mg/dL [facility] Spec Grav, UA 1.03 1 - 1.03 [facility] Urobilinogen, UA 0.2 0.2 - 12 mg/dL [facility] Urinalysis macro (dipstick) panel (U)on 06-17-2024 Bilirubin, UA Negative Negative - 4(70) +++ mg/dL [facility] Blood, UA Negative Negative - 50 Roberto/mcL [facility] Healthcare Clarity, UA Clear [facility] re Color, UA Yellow [facility] Glucose, UA Negative Negative - 1999(110) ++++ mg/dL [facility] Interpretation and review of laboratory results Abnormal [facility] Ketones, UA Negative Negative - 160(16) ++++ mg/dL [facility] Leukocytes, UA Negative Negative - 500+++ Christian/mcL [facility] Healthcare Nitrite, UA Negative Negative - Positive [facility] pH, UA 6 5 - 9 [facility] Protein, UA Positive Negative - 1999(20) ++++ mg/dL [facility] Comment on above: 100 Spec Grav, UA 1.03 1 - 1.03 [facility] Urobilinogen, UA 0.2 0.2 - 12 mg/dL [facility] Health[facility] e ALL CBC WITH AUTO DIFFon BASOPHILS ABSOLUTE AUTO 0.0 [facility] Basophils/100 WBC (Bld) 0.4 % 0.2 - 2.0 % [facility] Eosinophils/100 WBC (Bld) 1.1 % 0.9 - 7.0 % [facility] Erythrocyte distribution width (RBC) [Ratio] 14.2 % 11.0 - 15.0 % [facility] Hematocrit (Bld) [Volume fraction] 39.3 % 36.0 - 48.0 % [facility] e Hemoglobin (Bld) [Mass/Vol] 12.8 g/dL 12.0 - 16.0 g/dL [facility] IMMATURE GRANULOCYTES ABS AUTO 0.02 [facility] Immature granulocytes/100 WBC (Bld) 0.3 % 0.0 - 0.5 % [facility] Interpretation and review of laboratory results Abnormal [facility] LYMPHOCYTES ABSOLUTE AUTO 1.6 [facility] Lymphocytes/100 WBC (Bld) 21.5 % 20.5 - 60.0 % [facility] MCH (RBC) [Entitic mass] 26.8 pg 26.7 - 34.0 pg [facility] MCHC (RBC) [Mass/Vol] 32.6 g/dL 29.9 - 35.2 g/dL [facility] MCV (RBC) [Entitic vol] 82.2 fL 81.0 - 99.0 fL [facility] MONOCYTES ABSOLUTE AUTO 0.4 [facility] Monocytes/100 WBC (Bld) 5.1 % 1.7 - 12.0 % [facility] NEUTROPHILS ABSOLUTE AUTO 5.3 [facility] Neutrophils/100 WBC (Bld) 71.6 % 43.0 - 75.0 % [facility] Platelet mean volume (Bld) [Entitic vol] 9.2 fL Low 9.5 - 13.5 fL [facility] TB[facility] EO # 0.1 [facility] PLT 324 [facility] TB RBC 4.78 [facility] e TB WBC 7.4 [facility] HCG ( test) Ql (U)o n 05-16-2024 Interpretation and review of laboratory results Abnormal [facility] Preg Test, Ur Positive [facility] Cytology Cervical or vaginal smear or scraping studyOrdered By: Sheila Flowers on 04-07-2024 [facility] Coding Summary.on 04-07-2022 Coding Summary. [id number] h0bWw+PGhlYWQ+LH8SFYX rR82pcEWiuG8UW1dXKJ9B VOGVKHRYQR8BKP7ifLV4Z UeeW0HzrbGu LgjnjINySO81MLu6UXW5w CihMOgerJ9alDVoC7f9Ky BoXM06bL82IRelYPChAsN 3LjZpbjsgbWFy Y7ngFzIjhDErAsl+PHRhY mxlIHdpZHRoPScxMDAlJy KzzZxeZD8jQs4iPIXaHRG vbGxhcHNlOiBj e7xzEUOmNShiRU6rvSdbH 5KmoCX3OEZoz1o2Wh11fL I+XZRsQFM2dCbtAIcvd99 7AfBai4foCVG3 pXGsSYzuJHI5O92lc0F4G WIgPMTrPTQ8qCD4pW2iyS emolfrX5AmaQWcTgB7OTP 4mQObbD1wlNao naqomB1qWvn+E35VJQ3KD GHEPE5IEfw6D9IzGejnmR I+CO09OFPtHG64tZIawDH wx5psoGw5WbVw HNPnQRR2aZkzGOxnu0PxD SDiL62amVJiy7S5MAZbeW aeeRBxCoCvfJQ7mV5rVCj qqwcpn6xgahzf Sfsfh5xxfe70gV38G45mY JmcDOTcHAO6GMQhYMJlmF vpbr5hiF8rFj0+GXeka3x wt5wauCn1SaVe TPYblmSyxVjgQZH0h5CdM i63A9DgqZhgi6AqHeq1qm 74nZSac3L9rUL7ZVtpPNQ hnT6sNCmbXjG1 FKVwSuCzkJ24rDTkUFzhL h0smBdjqWmsDM7aMTYrft eiZLIgqV4nKTBbxKGbaGg qAU4pWDPuflek u087GaAzGMY5HQAidIBcZ 2ZrzV0sAfHeJUEvRDZfF2 MeoQEmBQysP465QXyiBaJ 5JAQyuqFiE1Cq ZMXnwEdzEoO4x4X8Ov0Hi 3NltzwgMPM9AWevBSD0Pu Y5OqIjCvA8X3PeOwm4JVY pwZsfXS8gU9Dv VSGdeosvliucpRK4VCQuV FXfaC99iWAgODlvLk7ur3 V2r243HODsGBTgnZ09Jt8 udDogMTBwdCBU pX9khxrpc6jrakdsQtPjO LLqQVr7EHt8CZOmjWanRz RwQJK7VwD1FYO6jNKrkH2 wqZqnohexeQ9x Oyc+V43zmZ5rZMG5CSJ5m ymdWKXtngDiTY47PD98C2 RyPjwvdGFibGU+PGRpdiB woCxbID9vDsPa p7lid7TkDEqhZ5NqUAUlT MkrOia0VOTlJDF3zJA1aG 8jEJTpSDqhe3N4gRH2I3Z sctSgfm1hz8nh KYIbHZxlR24grVAxt9D4J OUtaUJ3YGKnwRmpSoSauC 93Oyc+XXCwjIbjw0EyFsj gm4mbo9ydrYq4 ZgCxYGExovDqbUpcLJX0o 7EoWk57E38vSKalGIVgPS TbXWVsZIAziHnkmy3qeD1 wIi8+PGNvbCB3 dWD5vC1aIFMrJjG0FDqaK 443WpPhtBIuGaogp6zqw9 xmjAg6HuYzPYWbtsFvxDd yGYH3b9QdUa90 A14oDTvaCEVtKPBpMMZxO IMckAygbs0ezM8dTb5+PC 0bl7fnur89dA33cVD+PHR dIRQ4uUjyGNpq EJFvnI9vZKzmKlX2CBHaH zWaiZ14pZCxMCmhTv6emH ndtVpfVG3mQJDqfilff07 9EhTiw8xfETGv dNQaUEasRSI5Y59tl3O2K ZOcEBOaLAE2xQY0aA3znC lnbjogbGVmdDsgdmVydGl pKRhtMJloL652 IHRvcDsnPlBhdGllbnQgT qAtAWf3N1ZpTgt5FXPbsB evRG3awRRySYpzAn0zcUu vqZbnIS0fNMGy smqhb064SmRno5caWNVqw FImZQowRTR3N14op0R4YY BnCBDzADR7mMJ0kA6swCm nbjogbGVmdDsg ysMixXbgHCthQHkkU280Z HRvcDsnPkJpcnRoIERhdG O7SE26FJ41wKAsw1V5pZS 3Q1LbNRIsfbhj ofwxmNB0GEDsKGHacD62E w1hlLzbXi9hDLKfIKD7HB RfkUZxH0LaqW7eJnLlZYW mOAFmN7SjcTJp VOzuZ276PRjsNwM0GOUgm lFvM4OuUZOcqRreDrS8p2 D2Cn0DO1L3UX27NR69sXS ed3A3wBL3M5Xm JYYludvrvytwmBF5IFPgL JCryR74Bi2epMffVv4bAT HbPYK5SXYfeJDpH0AwkD0 yOiAjMDAwMDAw T2LbsFDqWOckA592GMgkJ zH1QTRimkQnU7PrVCYufL opQlS9e8W2Ue0PVIi9TM0 5UB42aVDfd4O5 dBU4J5QaWRBopymfddqvu TX6IOHgVJVduY90Ny7slD stZn8iUGXfEIR6VLXmkFZ kY8DyxQ6qXgKa FDFsASEkJ0LdfDAhWRveG 731BUtqQxL2UVWnavWeU7 IbUUMxqHtoSjW8a6L9Uh5 GOEVfOG86DVV2 jSE4WJ90YU72X6XqAsctp GFibGU+PHRhYmxlIHdpZH RoPScxMDAlJyBzdHlsZT0 fBj0iRBOiZJVq oZwioFUgHoIeu4onAIXoL YgiHO1lrUoiE3ReoDA0VA Ida2f8Ft91Z11eD6KppJK +CFHfdRI6oNZ2 bR6zIfSiBzI0UAqgC282A xBzzJXhYgnfd9aop0gubS q2UiH5KPNfdmMwlTerYCN 7e6DwBp36Q54c IHdpZHRoPSIxNSUiIHZhb Axjdu3vxT7lNc5+PGNvbC R8jYM7kN4qPzScNqP5FCa xZ032VyLnwOIl Wptvq8vsp1idkLb5NaLyX TIyezCsnQhaPSW2v8PuIz 05H8DeiUiuo2ZkRhe4pt9 5dTPua2E9xHW4 Z0XaNYTkxytfvIAvyJpyP X4jPFRiqojxBRZxcL5aTP NsA9l1DnGvRgT8VBsyN2N blkD7UJGlmDGe WCyxEYU2A14cq5U8MZXnF TNlWCL0fVM8iE2vqWibcy ogbGVmdDsgdmVydGljYWw pGZmzR094FHKq cQjtBYRbbL0sPBFlmQEhu IvhKC2bEYIidgbfZeFETA BQLCBIQUxFWSBOSUNPTEU 4K1WuNio2WSIu mGguYG3dbFYvLIelXi8pt TpckUyyCG2iENTmidifBE HbbZ2lVENjcMHrdTvrZO2 tISJvnlolu335 TbEiTNY9TCPfzKEzK0Zgz U3qLzPkVTSfYHIkR8FymP ZwXCuxA002BUwjJmA8WEJ zuxOcX8RzSTBp iRanTqM4o3K6Oq7iSD0wX X8wLIb4PJ92EM37cMZci2 A6aQM9M8IsWITibwgkjtq ilTV1QHFcTUXh lB64fJUcJHfeYd2ll9S2o 238PYJpQRFalN54Yo1ibE fxBGTriPNYuP2ydysxg1f vcjogIzAwMDAw TPj3WFp6STRhvIahEeMfD UW7NfC0IWA4dCKqtF0zvP asheyotW5fOap+MjQgWWV lbnV6R1SeLon6 QYXerKzkMG2exBPhXQqrD o1ffJrhyJobRR9eEVEmnm tpURZkjU2jWVSpoWZmcEd sIQ7aENFtpwff v048PcUdFRE1JNMnaZUwC 4TdeI9fZlRuUKOjMBRsV9 NjiSBhIIekF148RYheUoO 6YZUkhhReF3Te VYUckIqwMhE0u3U6Ox3JC U0paRW0A5CdVup4SKXnuC sxGR4ieECgVAtzPo9koZr dqUemOX5vOAEq dleeTPCvpB0zLLClnSVxm EfqMS1gUENltqgkg478Gl GpYZF3BRQksPJzP6VzaI6 yOiAjMDAwMDAw Y5LanFTsCUnuV429VFrjQ fE1MLAqnkUpQ0ZnHLVakG xhSxX5w7P4Id6FpBNoQXE zEQ55AU93ZN33 K9WxOsnrlUEjbTC+PHRhY mxlIHdpZHRoPScxMDAlJy XmtWmzJY5pRl2nCZGhJRB vbGxhcHNlOiBj d3feOHVrVGeqVY6vlUdwJ 6QhqMV0MGRlv5m0Vu49Y8 3yY3PrpIB+GQDpaYI8cHC 6mR8fEbHdFeY0 SSnmO245GhPegVYfAgpgx 4zao5xdvJf0OdUbXMDlyl ThjUwaAHR9h7CaCs81D87 sIHdpZHRoPSIy GENmAJTqpZvttm2qzH3oW i8+KAHznRX5tRT2vF1nQq UtCkO6SLtbY338PrQrvNT rHkqyN13eU7Mt dXA+EAPhBpd0JBExqKtzW W4bfIGyLDofAi2rVMY5Lz KjMkVnLWsjW1UpEKJtbep avjrsqFI8YRVa DQSdsF51Cp0htSilFc2xV NXaYAI8SSPusWDmJ1KpiR 2uBeWpNZPpUBPqQ1HjiNA rJGdxA764SVke QdC7TRFiskCbJ3QkJSOch InvPqD3p2V0Dl4KwKdgqM ShDI1sFnLpNBe5T5NoVue 4KMNisHmeEC7x nXHuKDlxNy5niUweqIodA L0iJHViyzjwt468QkAel2 rcRODkfXZxFJpiXSV4C74 ld6Q8WOHcYVQm VFN0eUA2eO6yzAnqinbev GVmdDsgdmVydGljYWwtYW bdO014AXLlbLiyYhRNUwl 1E4RhJsq8XZBw yYhoHY3hsFTfADcbTd5rz NhkeQmdPB4uAVUcnozcn8 04CyOqe1slLKYlvGKsRMf iQRP1L88ll0U6 NYMmQUGlIOL2qQM2mW3jp GlnbjogbGVmdDsgdmVydG gsKFxxWRpaV882CYGzxSg fJb6WSzj6Z4Ok Mya9XGZqtJcoOK0eaGPbV FmnOz5mdBzxlVvhQM4xVE Lkdizsg154XeOad6zwWXW wcHQgVGltZXM7 O55eo0R1QUPnKMEmEVD7f RQ6cQ5haPbwzlcrjUKccP ufoaBwuYlnEGasBVpnD69 6IHRvcDsnPlBh eWVyOjwvdGQ+DH90mp86U 9MbLokgRjl1LLQkYKP8pS B1rO0rAIBqLGrgl9A0uDM 8P7KxumTook8q b2xs (more content not included)... Normal [facility] XR Ankle 3+ Views Lefton XR [...] Howell M.D. Transcribed by: JENN Technologist: STEVEN [facility] Consent for Treatmenton 08 Consent for Treatment [id number] .00CD:127 [facility] Physician Orderon 04-03-2022 Physician Order [id number] 1.00CD:127 [facility] XR ANKLE LT MIN 3 Von 2021 XR ANKLE LT MIN 3 V EXAM: XR ANKLE LT WY N 3 V, XR FOOT LT MIN [...] by: MARQUIS HENSON Date: 2022-03-11 16:04 Normal [facility] PAP ACOG PANEL 2: 21 to 29on 10-24-2021 . . Normal [facility] Comment on above: Performed By: #### [id number] #### [facility] [address] [address] [address] Aura Griffiths Age Gdln ACOG Testing - Normal [facility] Comment on above: Performed By: #### [id number] #### [facility] [address] [place] [address] Dr. Aura Griffiths DIAGNOSIS: Comment [facility] Comment on above: Result Comment: NEGA TIVE FOR INTRAEPITHELIAL LESION OR MALIGNANCY. Performed By: #### [id number] #### [facility] [address] [place] [address] Dr. Aura Griffiths Methodology: Comment Normal [facility] Comment on above: Result Comment: This liquid based ThinPrep(R) pap test was screened with the use of an image guided system. Performed By: #### [id number] #### [facility] [address] [place] [address] Dr. Aura Griffiths Note: Comment Normal [facility] Comment on above: Result Comment: The Pap smear is a screening test designed to aid in the detection of premalignant and malignant conditions of the uterine cervix. It is not a diagnostic procedure and should not be used as the sole means of detecting cervical cancer. Both false-positive and false-negative reports do occur. . Performed By: #### [id number] #### [facility] [address] [place] [address] Dr. Aura Griffiths Performed by: Comment Normal [facility] Comment on above: Result Comment: Radha Trevino, Building Carpenter (ASCP) Performed By: #### [id number] #### [facility] [address] [place] [address] Dr. Aura Griffiths Reflex Criteria: Comment Normal [facility] Comment on above: Result Comment: The HPV DNA reflex criteria were not met with this specimen result therefore, no HPV testing was performed. . Performed By: #### [id number] #### [facility] [address] [address] [address] Aura Griffiths Specimen adequacy: Comment Normal [facility] Comment on above: Result Comment: Sati sfactory for evaluation. Endocervical and/or squamous metaplastic cells (endocervical component) are present. Performed By: #### [id number] #### [facility] [address] [address] [address] Aura Griffiths Vital Signs Date Time Vital Sign Value Performing Clinician Faci lity 09-25-2024 08:58-0500 Body mass index (BMI) [Ratio] 45.49 kg/m2 Carrie Ora DO Work Phone: [facility] 09-25-2024 08:58-0500 Body weight 120.2 kg Carrie Ora DO Work Phone: [facility] 09-25-2024 08:58-0500 Diastolic blood pressure 72 mm[Hg] Carrie Ora DO Work Phone: [facility] 09-25-2024 08:58-0500 Systolic blood pressure 122 mm[Hg] Carrie Ora DO Work Phone: [facility] 2024 09:48-0500 Body mass index (BMI) [Ratio] 44.97 kg/m2 Karla OSPINA Work Phone: [facility] 2024 09:48-0500 Body weight 118.84 kg Karla OSPINA Work Phone: [facility] 2024 09:48-0500 Diastolic blood pressure 70 mm[Hg] Karla OSPINA Work Phone: [facility] 2024 09:48-0500 Systolic blood pressure 120 mm[Hg] Karla OSPINA Work Phone: [facility] 08-14-2024 11:20-0500 Body mass index (BMI) [Ratio] 44.53 kg/m2 Carrie Ora DO Work Phone: [facility] 08-14-2024 11:20-0500 Body weight 117.66 kg Carrie Ora DO Work Phone: [facility] 08-14-2024 11:20-0500 Diastolic blood pressure 82 mm[Hg] Carrie Ora DO Work Phone: [facility] 08-14-2024 11:20-0500 Systolic blood pressure 124 mm[Hg] Carrie Ora DO Work Phone: [facility] 07-17-2024 10:48-0500 Body mass index (BMI) [Ratio] 45.28 kg/m2 Carrie Ora DO Work Phone: [facility] 07-17-2024 10:48-0500 Body weight 119.66 kg Carrie Ora DO Work Phone: [facility] 07-17-2024 10:48-0500 Diastolic blood pressure 70 mm[Hg] Carrie Ora DO Work Phone: [facility] 07-17-2024 10:48-0500 Systolic blood pressure 120 mm[Hg] Carrie Ora DO Work Phone: [facility] [facility] 06-17-2024 10:48-0400 Body mass index (BMI) [Ratio] 44.99 kg/m2 Carrie Ora DO Work Phone: [facility] 06-17-2024 10:48-0400 Body weight 118.9 kg Carrie Ora DO Work Phone: [facility] 06-17-2024 10:48-0400 Diastolic blood pressure 70 mm[Hg] Carrie Ora DO Work Phone: [facility] 06-17-2024 10:48-0400 Systolic blood pressure 120 mm[Hg] Carrie Ora DO Work Phone: [facility] 05-16-2024 09:16-0400 Body mass index (BMI) [Ratio] 46 kg/m2 [facility] 05-16-2024 [id number] Body weight 121.56 kg [facility] 05-16-2024 09:160400 Diastolic blood pressure 70 mm[Hg] [facility]oms Nurse [facility] Healthcare 05-16-2024 09:160400 Systolic blood pressure 120 mm[Hg] [facility] Nurse [facility] Encounters Encounter Date Encounter Type Care Provider Facility Start: 10-09-2024 End: 10-09-2024 ambulatory CARRIE ORA Not Available Start: 10-07-2024 End: 10-07-2024 Clinisync Result Encounter Carrie Ora DO Work Phone: [facility] Unsolicited Start: 10-07-2024 End: 10-07-2024 Clinisync Result Encounter Carrie Ora DO Work Phone: [facility] Unsolicited Start: 09-25-2024 End: 09-25-2024 Bamboo flowsheet Carrie Ora DO Work Phone: [facility] Start: 09-25-2024 End: 09-25-2024 Bamboo flowsheet Carrie Ora DO Work Phone: [facility] Start: 09-25-2024 End: 09-25-2024 flow sheet Carrie Ora DO Work Phone: [facility] Comment on above: Second trimester pre gnancy; 27 weeks gestation of ; Elevated glucose tolerance test Start: 09-25-2024 End: 09-25-2024 ambulatory CARRIE ORA Not Available Start: 2024 End: 2024 Bamboo flowsheet Karla OSPINA Work Phone: [facility] Start: 2024 End: 2024 Bamboo flowsheet Karla OSPINA Work Phone: [facility] Start: 2024 End: 2024 flow sheet Karla OSPINA Work Phone: [facility] Comment on above: 25 weeks [...] 9w0d Start: 05-16-2024 End: 05-16-2024 ambulatory CARRIE ORA Not Available Start: 04-07-2024 End: 04-07-2024 ambulatory KARLA BURNS Not Available Start: 03-11-2022 End: 03-11-[address] CARRIE PAYAN Facility: Start: 10-18-2021 End: 02-15-[address] CARRIE PAYAN Facility:H1 Procedures Date Procedure Procedure Detail Performing Clinician Start: 10-07-2024 GLUCOSE TOLERANCE 3 HOUR Carrie Mahoneyo DO Work Phone: Start: 09-25-2024 Urnls dip stick/tabl et rgnt non-auto w/o micrscp Carrie Ora DO Work Phone: Start: 2024 Urnls dip stick/tabl et rgnt non-auto w/o micrscp Karla OSPINA Work Phone: Start: 08-14-2024 Urnls dip stick/tabl [...] t hin layer prep mnl screen Carrie Ora DO Work Phone: Plan of Treatment Date Care Activity Detail Author Start: 10-09-2024 End: 10-09-2024 Patient encounter procedure 10/09/2024 10:40 AM EST Routine [facility] [address] [place] [id number] Carrie Payan, DO [address] [place] [address] [facility] Start: 10-09-2024 End: 10-09-2024 Professional / ancillary services management 10/09/2024 10:00 AM EST Ancillary Procedure [facility] [address] [facility] [place] [id number] [facility] Start: 09-25-2024 End: 09-25-2025 Measurement of glucose 3 hours after glucose challenge for glucose tolerance test Glucose tolerance, 3 hours Lab Routine Elevated glucose tolerance test Expected: 09/25/2024 (Approximate), Expires: 09/25/2025 [facility] Healthcare Comment on above: Expected: 09/25/2024 (Approximate), [...] EST Ancillary Procedure [facility] [address] [place] [id number] [facility] Start: 07-17-2024 End: 09-16-2024 Alpha fetoprotein, maternal Alpha fetoprotein, maternal Lab Routine Second trimester Expected: 07/17/2024 (Approximate), Expires: 09/16/2024 [facility] Comment on above: Expected: 07/17/2024 (Approximate), Expires: 09/16/2024 Start: 07-17-2024 End: 07-17-2025 Measurement of glucose 1 hour after glucose challenge for glucose tolerance test GTT, 1 hour Lab Routine History of gestational diabetes Expected: 07/17/2024 (Approximate), Expires: 07/17/2025 [facility] Comment on above: Expected: 07/17/2024 (Approximate), Expires: 07/17/2025 Start: 07-17-2024 End: 07-17-2025 US for US OB ANATOMY SINGLE W US OB CERVICAL LENGTH Imaging Routine Screening, , for anatomic survey Expected: 07/17/2024 (Approximate), Expires: 07/17/2025 [facility] Comment on above: Expected: 07/17/2024 (Approximate), Expires: 07/17/2025 Start: 07-15-2024 End: 07-15-2024 Patient encounter procedure 07/15/2024 10:50 AM EST Routine [facility] [address] [facility] [place] [phone] Carrie Payan DO [address] [place] [address] [facility] Start: 06-17-2024 End: 06-17-2024 Patient encounter procedure [facility] Comment on above: Arrived Start: 05-16-2024 End: 05-16-2025 ABO/Rh ABO/Rh Lab Routine Missed menses Expected: 05/16/2024 (Approximate), Expires: 05/16/2025 [facility] Comment on above: Expected: 05/16/2024 (Approximate), Expires: 05/16/2025 Start: 05-16-2024 End: 05-16-2025 Blood type and Indirect antibody screen panel - Blood Type and screen Lab Routine Missed menses Expected: 05/16/2024 (Approximate), Expires: 05/16/2025 [facility] Work Phone: Comment on above: Expected: 05/16/2024 (Approximate), Expires: 05/16/2025 Start: 05-16-2024 End: 05-16-2025 Drugs of abuse panel - Urine by Screen method Rapid drug screen, urine Lab Routine Encounter for supervision of normal first in first trimester , unspecified gestational age Expected: 05/16/2024 (Approximate), Expires: 05/16/2025 [facility] Comment on above: Expected: 05/16/2024 (Approximate), Expires: 05/16/2025 Start: 05-16-2024 End: 05-16-2025 US Pelvis transvaginal US OB transvaginal Imaging Routine Missed menses Expected: 05/16/2024 (Approximate), Expires: 05/16/2025 [facility] Comment on above: Expected: 05/16/2024 (Approximate), Expires: 05/16/2025 Bacteria identified in Urine by Culture Urine culture Microbiology Routine Missed menses Ordered: 05/16/2024 [facility] Comment on above: Ordered: 05/16/2024 Bacteria identified in Urine by Culture Urine culture Microbiology Routine UTI symptoms Ordered: 2024 [facility] Work Phone: Comment on above: Ordered: 2024 CBC W Auto Different ial panel - Blood CBC and differential Lab Routine Missed menses Ordered: 05/16/2024 [facility] Comment on above: Ordered: 05/16/2024 CHLAMYDIA TRACHOMATI S (GENITO/STI) CHLAMYDIA TRACHOMATIS (GENITO/STI) Lab Routine Exposure to STD Ordered: 07/17/2024 [facility] Comment on above: Ordered: 07/17/2024 Hemoglobin A1c/Hemoglobin.total in Blood Hemoglobin A1c Lab Routine Missed menses Ordered: 05/16/2024 [facility] Comment on above: Ordered: 05/16/2024 Hepatitis B virus surface Ag [Presence] in Serum or Plasma by Immunoassay Hepatitis B surface antigen Lab Routine Missed menses Ordered: 05/16/2024 [facility] Comment on above: Ordered: 05/16/2024 Hepatitis C virus Ab [Presence] in Serum or Plasma by Immunoassay Hepatitis C antibody Lab Routine Missed menses Ordered: 05/16/2024 [facility] Comment on above: Ordered: 05/16/2024 HIV-1/HIV-2 antigen/antibody combination immunoassay HIV-1 and HIV-2 antibodies Lab Routine Missed menses Ordered: 05/16/2024 [facility] Comment on above: Ordered: 05/16/2024 Neisseria gonorrhoea e DNA [Presence] in Unspecified specimen by XIOMARA with probe detection Neisseria gonorrhea DNA probe, direct Lab Routine Exposure to STD Ordered: 07/17/2024 [facility] Comment on above: Ordered: 07/17/2024 Reagin Ab [Presence] in Serum by RPR RPR Lab Routine Missed menses Ordered: 05/16/2024 [facility] Comment on above: Ordered: 05/16/2024 Rubella antibody, IgG Rubella an tibody, IgG Lab Routine Missed menses Ordered: 05/16/2024 [facility] Comment on above: Ordered: 05/16/2024 SURESWAB(R) ADVANCED VAGINITIS PLUS, TMA SURESWAB(R) ADVANCED VAGINITIS PLUS, TMA Pathology and Cytology Routine Vaginal discharge Ordered: 07/17/2024 [facility] Work Phone: Comment on above: Ordered: 07/17/2024 Payers Date Payer Category Payer Unknown [id number] 2023 [employer] [facility] [id number] 2023 Unknown BCBS BCBS [id number] [id number] 2023-Present [phone] [address] [place] [address] [id number] 2023 Unknown [id number] 1995 Unknown [id number] 93 1997 Unknown [id number] 93 1997 Unknown [id number] 259 1997 Unknown [id number] 259 1997 Unknown [id number] 259 1997 Unknown [id number] 259 1997 Unknown [id number] 259 1997 Unknown [id number] 259 1997 Unknown [id number] 259 1997 Unknown [id number] 259 1997 Unknown [id number] 259 1959 Private Health Insurance [id number] 1957 Unknown [id number] Social History Date Type Detail Facility Start: 07-31-2023 Tobacco smoking stat [facility] Never smoked tobacco [facility] Start: 07-31-2023 [...] Gender identity Identifies as female gender (finding) [facility] Clinical Notes 05-16-2024 to 09-25-2024 Kathleen Dickens LPN - 09/25/2024 9:00 AM BHAVESH Mares - 2024 9:30 AM Alvin Ventura LPN - 08/14/2024 10:40 AM Scarlet Dickens, AVIATION OPERATIONS SPECIALIST - 07/17/2024 10:30 AM EST Note Date [...] Morbid obesity with BMI of 40.0-44.9, adult ([facility]) Negative test On Depo-Provera for contraception HISTORY PAST MEDICAL HISTORY SOCIAL HISTORY Past Medical History: Diagnosis Date Depression screening Encounter for gynecological examination (general) (routine) without abnormal findings Family planning Insulin resistance Morbid obesity with BMI of 40.0-44.9, adult ([facility]) Negative test On Depo-Provera for contraception Social [...] nursing note reviewed. Exam conducted with a chemical supervisor present. Vitals: Estimated body mass index is [...] Carrie Payan DO documented in this encounter [facility] 2024 History of Presen t illness [...] Morbid obesity with BMI of 40.0-44.9, adult ([facility]) Negative test On Depo-Provera for contraception HISTORY PAST MEDICAL HISTORY SOCIAL HISTORY Past Medical History: Diagnosis Date Depression screening Encounter for gynecological examination (general) (routine) without abnormal findings Family planning Insulin resistance Morbid obesity with BMI of 40.0-44.9, adult ([facility]) Negative test On Depo-Provera for contraception Social [...] nursing note reviewed. Exam conducted with a chemical supervisor present. Vitals: Estimated body mass index is [...] of: BHAVESH Javier documented in this encounter [facility] 08-14-2024 History of Presen t illness [...] Morbid obesity with BMI of 40.0-44.9, adult ([facility]) Negative test On Depo-Provera for contraception HISTORY PAST MEDICAL HISTORY SOCIAL HISTORY Past Medical History: Diagnosis Date Depression screening Encounter for gynecological examination (general) (routine) without abnormal findings Family planning Insulin resistance Morbid obesity with BMI of 40.0-44.9, adult ([facility]) Negative test On Depo-Provera for contraception Social [...] nursing note reviewed. Exam conducted with a chemical supervisor present. Vitals: Estimated body mass index is [...] Carrie Payan DO documented in this encounter [facility] 07-17-2024 History of Presen t illness [...] Morbid obesity with BMI of 40.0-44.9, adult ([facility]) Negative test On Depo-Provera for contraception HISTORY PAST MEDICAL HISTORY SOCIAL HISTORY Past Medical History: Diagnosis Date Depression screening Encounter for gynecological examination (general) (routine) without abnormal findings Family planning Insulin resistance Morbid obesity with BMI of 40.0-44.9, adult ([facility]) Negative test On Depo-Provera for contraception Social [...] nursing note reviewed. Exam conducted with a chemical supervisor present. Vitals: Estimated body mass index is [...] Carrie Payan DO documented in this encounter [facility] 06-17-2024 History of Presen t illness [...] Morbid obesity with BMI of 40.0-44.9, adult ([facility]) Negative test On Depo-Provera for contraception HISTORY PAST MEDICAL HISTORY SOCIAL HISTORY Past Medical History: Diagnosis Date Depression screening Encounter for gynecological examination (general) (routine) without abnormal findings Family planning Insulin resistance Morbid obesity with BMI of 40.0-44.9, adult ([facility]) Negative test On Depo-Provera for contraception Social [...] nursing note reviewed. Exam conducted with a chemical supervisor present. Vitals: Estimated body mass index is [...] or undercooked meat, and stay away from [facility]. Patient has been consulted regarding any [...] Karla Burns PA-C documented in this encounter [facility] 05-16-2024 History of Presen t illness [...] Morbid obesity with BMI of 40.0-44.9, adult ([facility]) Negative test On Depo-Provera for contraception Family [...] or undercooked meat, and stay away from [facility]. Patient has also been advised to [...] Shannan Peña LPN documented in this encounter [facility] Healthcare Evaluation note Diagnosis 13 weeks gestation [...] DATE CREATED AUTHOR AUTHOR'S ORGANIZ ATION 04/08/2022 [facility] DATE CREATED AUTHOR AUTHOR'S ORGANIZ ATION 10/11/2024 [facility] Care Teams (unrecognized sec tion and content) Research Statistician Relationship Specialty Start Date End Date Karla Ortega MD [address] [place] [address] PCP - General Family Medicine 01/24/23 Research Statistician Relationship Specialty Start Date End Date Karla Ortega MD [address] [place] [address] PCP - General Family Medicine 01/24/23 Research Statistician Relationship Specialty Start Date End Date Karla Ortega MD [address] [place] [address] PCP - General Family Medicine 01/24/23 Research Statistician Relationship Specialty Start Date End Date Karla Ortega MD [address] [place] [address] PCP - General Family Medicine 01/24/23 Research Statistician Relationship Specialty Start Date End Date Karla Ortega MD [address] [place] [address] PCP - General Family Medicine 01/24/23 Research Statistician Relationship Specialty Start Date End Date Karla Ortega MD [address] [place] [address] PCP - [facility] 01/24/23 Research Statistician Relationship Specialty Start Date End Date Karla Ortega MD [address] [place] [address] PCP - [facility] 01/24/23 Research Statistician Relationship Specialty Start Date End Date Karla Ortega MD [address] [place] [address] PCP - [facility] 01/24/23 Research Statistician Relationship Specialty Start Date End Date Karla Ortega MD [address] [place] [address] PCP - [facility] 01/24/23 Research Statistician Relationship Specialty Start Date End Date Karla Ortega MD [address] [place] [phone] PCP - [facility] 01/24/23 Reason for Visit (unrecogniz ed section [...] BE BASED ON THE PRIMARY CLINICAL RECORDS. [facility] [employer] [facility]. provides no warranty or guarantee of the accuracy or completeness of information in this document.
[2024-10-11 20:23] VITALS: BP 131/75; PULSE 113
[2024-10-11 21:19] LABS: Basophils Percent Auto 0.1 % (0.2-2.0); Eosinophils Absolute Auto 0.1 10^3/uL (0.0-0.7); Eosinophils Percent Auto 0.8 % (0.9-7.0); Hematocrit 32.7 % (36.0-48.0); Hemoglobin 10.5 g/dL (12.0-16.0); Immature Granulocytes Abs Auto 0.03 10^3/uL (0.00-0.03); Immature Granulocytes Pct Auto 0.3 % (0.0-0.5); Lymphocytes Absolute Auto 1.6 10^3/uL (1.2-3.8); Lymphocytes Percent Auto 16.2 % (20.5-60.0); Mean Corpuscular HGB Conc 32.1 g/dL (29.9-35.2); Mean Corpuscular Hemoglobin 25.4 pg (26.7-34.0); Mean Corpuscular Volume 79.2 fL (81.0-99.0); Mean Platelet Volume 8.5 fL (9.5-13.5); Monocytes Absolute Auto 0.9 10^3/uL (0.3-0.8); Monocytes Percent Auto 9.5 % (1.7-12.0); Neutrophils Absolute Auto 7.1 10^3/uL (1.4-6.5); Neutrophils Percent Auto 73.1 % (43.0-75.0); Platelet Count 366 10^3/uL (150-450); Red Blood Count 4.13 10^6/uL (4.20-5.40); White Blood Count 9.7 10^3/uL (4.0-11.0)
[2024-10-11 21:20] LABS: Bilirubin Urine NEGATIVE (NEGATIVE); Blood Urine NEGATIVE (NEGATIVE); Clarity Urine SL CLOUDY (CLEAR); Color Urine YELLOW (YELLOW); Glucose Urine UA NEGATIVE (NEGATIVE); Ketones Urine 15 mg/dL (NEGATIVE); Leukocyte Esterase Urine NEGATIVE (NEGATIVE); Nitrite Urine NEGATIVE (NEGATIVE); Protein Urine TRACE mg/dL (NEG/TRACE); Specific Gravity Urine 1.025 (1.005-1.025)
[2024-10-11] MEDS: HYDROCODONE/ACET 5-325 MG TABLET 1 TAB PO (21:21)
[2024-10-11 21:24] LABS: Urine Microscopic Indicated NO
[2024-10-11 21:34] LABS: Alanine Aminotransferase 17 U/L (14-59); Albumin Globulin Ratio 0.5; Albumin Level 2.3 g/dL (3.4-5.0); Alkaline Phosphatase 116 U/L (46-116); Anion Gap 13.6; Aspartate Amino Transferase 8 U/L (15-37); BUN Creatinine Ratio 10.9; Bilirubin Total 0.4 mg/dL (0.2-1.0); Calcium 8.7 mg/dL (8.5-10.1); Carbon Dioxide 23.8 mmol/L (21.0-32.0); Chloride 103 mmol/L (98-107); Estimated GFR (African America >60 (>=60 mL/min/1.73m^2); Estimated GFR (Non-African Ame >60 (>=60 mL/min/1.73m^2); Globulin 4.3 g/dL; Glucose 102 mg/dL (74-106); Potassium 3.4 mmol/L (3.5-5.1); Sodium 137 mmol/L (136-145); Total Protein 6.6 g/dL (6.4-8.2)
[2024-10-12 08:56] VITALS: BP 123/66; PULSE 95
--- NOTE | 2024-10-12 11:08 | P.OBHP_ITS ---
OB - H&P: HPI History of Present Illness Chief complaint: ABDOMINAL PAIN/CRAMPING 30 WEEKS : 3 Para: 1 Date of last menstrual period: 30 weeks gestation Gestational age based on last menstrual period: EDC 12/19/24 Narrative: OBESE FEMALE AT 30.1 WEEKS GESTATION. HAS DELIVERED FULL TERM ONE TIME IN PAST. HAS HAD ONE TERMINATION. DOES WORK OUTSIDE THE HOME. HAS COME INTO HOSPITAL TWICE THIS WEEK FOR C/O LEFT SIDED GENERALIZED ABDOMINAL PAIN. NO NAUSEA, VOMITING, SOB, HEART PALPITATIONS, OR BLEEDING. NO TRAUMA. BABY MOVING NORMALLY. DENIES CONTRACTIONS. SHE DOES HAVE HER GALLBLADDER AND APPENDIX. SHE DID HAVE A BOWEL MOVEMENT YESTERDAY. History of Present care: good care complications comment: NOTED TO HAVE LGA BABY Labs Blood type: A (+) positive Rubella: immune RPR/VDLR: nonreactive GBS status: unknown HBsAG: negative Narrative: IN NO ACUTE DISTRESS, SMILING, EATING AND ELIMINATING NORMALLY Review of Systems ROS Status of ROS: 10 or more systems reviewed and unremarkable except as noted in history and below Allergic/Immunologic: Reports: other (ABDOMEN SOFT, NONDISTENDED, MILD DISCOMFORT TO DEEP PALPATION) PFSH PFSH Social History Little interest or pleasure in doing things: not at all Feeling down, depressed, or hopeless: not at all Meds Home Medications and Allergies Home Medications ?Medication ?Instructions ?Recorded ?Confirmed ?Type naproxen 500 mg tablet 500 mg PO Q12H PRN pain #10 tabs 07/14/23 Rx metoclopramide HCl 10 mg tablet 10 mg PO Q6H PRN nausea and 05/25/24 Rx (Reglan) vomiting #20 tabs amoxicillin 875 mg-potassium 1 tab PO Q12H #20 tabs 08/11/24 Rx clavulanate 125 mg tablet Allergies Allergy/AdvReac Type Severity Reaction Status Date / Time No Known Drug Allergies Allergy Verified 05/25/24 17:08 Exam Narrative Exam Narrative: CONSTANT LEFT ABDOMINAL GENERALIZED PAIN. NO NAUSEA OR VOMITING. HAS APPETITE. IS ABLE TO AMBULATE AND GO FROM SUPINE POSITION TO SITTING UP POSITION WITHOUT PROBLEM. BABY IS MOVING. FEELING NO CONTRACTIONS THOUGH DOES HAVE A FEW ON THE MONITOR. DOES WORK OUTSIDE THE HOME. Constitutional Vital Signs, click to edit/add: Last Vital Signs Pulse 95 H 10/12/24 08:56 BP 123/66 10/12/24 08:56 Documenting provider has reviewed patient's vital signs: yes Common normals: no apparent distress, oriented x3, no limitations, healthy appearing, alert and well nourished General appearance: cooperative, comfortable and well kempt Orientation/consciousness: Yes awake, Yes oriented to person, Yes oriented to place and Yes oriented to time HENVA Common normals: normocephalic and head/scalp atraumatic Eye Common normals: PERRL and conjunctivae normal Pupil: accommodation reflex normal Neck & C-Spine Common normals: full ROM and supple Respiratory Common normals: normal respiratory effort Auscultation: clear to auscultation bilaterally Cardio Common normals: regular rate and regular rhythm GI Common normals: Normal to inspection, nondistended, normoactive bowel sounds present, soft to palpation, non-tender (TENDER TO DEEP PALPATION, NO UMBILICAL HERNIATION OR INGUINAL HERNIATION ) and no masses Common normals: no CVA tenderness Back & Pelvis Common normals: no thoracic nor lumbar tenderness Extremity Common normals: normal to inspection, full ROM and no calf tenderness Neuro Common normals: CN's II-XII intact bilaterally, moves all extremities, no focal motor deficits and no sensory deficits noted Psych Common normals: mental status grossly normal, thought process normal, cooperative, affect normal, speech normal and activity/motor behavior normal Results Labs Labs: Short CBC 10/11/24 Range/Units 21:10 WBC 9.7 (4.0-11.0) 10^3/uL Hgb 10.5 L (12.0-16.0) g/dL Hct 32.7 L (36.0-48.0) % Plt Count 366 (150-450) 10^3/uL BMP 10/11/24 21:10 Sodium 137 Potassium 3.4 L Chloride 103 Carbon Dioxide 23.8 BUN 6.0 L Creatinine 0.55 Glucose 102 Calcium 8.7 Liver Function 10/11/24 Range/Units 21:10 Total Bilirubin 0.4 (0.2-1.0) mg/dL AST 8 L (15-37) U/L ALT 17 (14-59) U/L Alkaline Phosphatase 116 (46-116) U/L Albumin 2.3 L (3.4-5.0) g/dL Urine 10/11/24 Range/Units 21:05 Urine Color Yellow (YELLOW) Urine Clarity Sl cloudy (CLEAR) Urine pH 6.0 (5.0-9.0) Ur Specific [place] 1.025 (1.005-1.025) Urine Protein Trace (NEG/TRACE) mg/dL Urine Glucose (UA) Negative (NEGATIVE) mg/dL OB - A/P Assessment and Plan (1) Abdominal pain affecting : Assessment and Plan: 30.1 WEEKS GESTATION, ABDOMINAL PAIN, GENERALIZED THROUGHOUT LEFT SIDE. UNABLE TO GET MRI TODAY. NOT SUSPICIOUS FOR ACUTE GI ABNORMALITY SO DO NOT WANT TO O RDER A CT SCAN. WILL GET MRI TOMORROW MORNING. VITALS NORMAL. NO TEMPERATURE. IS URINATING NORMALLY AND UA NORMAL. HAS HAD BOWEL MOVEMENT. CMP APPROPRIATE FOR . NO ELEVATED WBC. NO BLEEDING. THOUGH HAVING CONTRACTIONS RARELY ON TOCO DENIES FEELING ANY. BABY MOVING NORMALLY WITH CAT I TRACING. WILL GET NST QS. MAY EAT AND AMBULATE UP AD FELA. WILL PLACE [place]PL[place] IN AM IF NEEDED BY RADIOLOGIST. (2) Third trimester at less than 36 weeks: Assessment and Plan: NST REACTIVE, CAT I TRACING. WILL MONITOR BABY STATUS QS. NO LOF, NO BLEEDING. Plan SEE ABOVE
[2024-10-12] MEDS: OXYCODONE HCL/ACETAMINOPHEN 5MG/325MG 1 TAB PO (13:28)
[2024-10-12] MEDS: ASPIRIN 81 MG TABLET.DR PO (13:28)
[2024-10-12 13:31] VITALS: BP 128/59; PULSE 108
[2024-10-12 13:53] VITALS: TEMP 36.6
--- NOTE | 2024-10-12 15:52 | PC.NURSE ---
Lying on couch, states is not having any pain currently
[2024-10-12 22:04] VITALS: BP 118/63; PULSE 93
[2024-10-13] MEDS: OXYCODONE HCL/ACETAMINOPHEN 5MG/325MG 1 TAB PO (05:11)
[2024-10-13 08:07] VITALS: BP 118/64; PULSE 86
--- NOTE | 2024-10-13 10:34 | CT_ITS ---
[address] [address] Patient Name: KAREEN FORMAN MRN: [id number] date: 1995 Sex: F Assigned Patient Location: [facility] Current Patient Location: [facility] Accession/Order Number: [id number] Exam Date: 10/13/2024 10:28 Report Date: 10/13/2024 12:05 At the request of: JAYME CLODU Procedure: CT abdomen pelvis wo con EXAMINATION: CT abdomen pelvis wo con HISTORY: lt sided addominal pain COMPARISON: No relevant comparison available. TECHNIQUE: Axial, Coronal, and Sagittal images were created without IV contrast. Dose reduction techniques were achieved by using automated exposure control and/or adjustment of mA and/or kV according to patient size and/or use of iterative reconstruction technique. FINDINGS: LUNG BASES: No visible pulmonary or pleural disease. LIVER: No enlargement, atrophy, abnormal density, or significant focal lesion. BILIARY: No dilatation or calcification. PANCREAS: No lesion, fluid collection, ductal dilatation, or atrophy. SPLEEN: No enlargement or focal lesion. ADRENALS: No mass or enlargement. KIDNEYS: No mass, obstruction, or calcification. BOWEL/MESENTERY: No visible mass, obstruction, or bowel wall thickening. Normal appendix AORTA/VASCULAR: No aneurysm or dissection. RETROPERITONEUM: No mass or adenopathy. LYMPH NODES: No adenopathy. URINARY BLADDER: No visible focal wall thickening, lesion, or calculus. PELVIC ORGANS: Known Feldman intrauterine gestation ABDOMINAL WALL: No mass or hernia. BONES: No bony lesion or fracture. OTHER: Negative. CT/CT abdomen pelvis wo con IMPRESSION: No acute intraperitoneal abnormality. Electronically authenticated by: ASHLEY HAZEL Date: 10/13/2024 12:05
--- NOTE | 2024-10-13 11:09 | PM.OBPN ---
OB - PN: Subj Subjective Patient comments: pain well controlled (with percocet 5/325 po q 6 hours. undelivered at 30.5 weeks) Exam Narrative Exam Narrative: pain woke patient up at 5 am and she did ask for percocet 5/325 Constitutional Vital Signs, click to edit/add: Last Vital Signs Temp 97.8 F 10/12/24 13:53 Pulse 86 10/13/24 08:07 BP 118/64 10/13/24 08:07 Documenting provider has reviewed patient's vital signs: yes Common normals: no apparent distress, oriented x3, healthy appearing, alert and well nourished General appearance: cooperative Nutritional appearance: obese Orientation/consciousness: Yes awake, Yes oriented to person, Yes oriented to place and Yes oriented to time HENMT Common normals: normocephalic and head/scalp atraumatic Eye Common normals: PERRL Pupil: accommodation reflex normal Neck & C-Spine Common normals: full ROM Respiratory Common normals: normal respiratory effort Auscultation: clear to auscultation bilaterally Cardio Common normals: regular rate and regular rhythm GI Common normals: Normal to inspection, nondistended, normoactive bowel sounds present and soft to palpation Palpation: other (tender to deep palpation on the left side of abdomen) Common normals: no CVA tenderness Back & Pelvis Common normals: no thoracic nor lumbar tenderness Extremity Common normals: normal to inspection, full ROM and no calf tenderness Neuro Common normals: oriented x3, CN's II-XII intact bilaterally, moves all extremities, no focal motor deficits and no sensory deficits noted Psych Common normals: mental status grossly normal, thought process normal, cooperative and affect normal Attitude: calm and engaged OB - PN: A/P Assessment and Plan (1) Abdominal pain affecting : Assessment and Plan: had lengthy discussion with Dr. Peñaloza the radiologist. He stated that a CT scan will provide him with more information than an MRI so the MRI was cancelled and a CT of the abdomen was ordered. concerned there may be a mechanical obstruction due to displacement of bowel by gravid uterus even though the patient is having bowel movements. (2) Third trimester at less than 36 weeks: Assessment and Plan: NST q shift. if CT neg, will discharge home with recommendations on how to minimize discomfort associated with third trimester Plan Dr. Payan aware of this patient and her medical issues. Time Spent with Patient Time: Total time spent is greater than 50% in coordination of care (as documented) at patient's floor/unit and/or counseling patient: Total time spent with greater than 50% in coordination of care (as documented) at patient's floor/unit and/or counseling patient: 25 - 35 minutes
== END 2024-10-13 12:30 | disposition home or self-care (01) ==
PROVIDERS: Admitting Provider Obstetrics & Gynecology; Visit Provider Obstetrics & Gynecology
DX: O99.891 Other specified diseases and conditions complicating pregnancy (principal); R10.84 Generalized abdominal pain; O36.63X0 Maternal care for excessive fetal growth, third trimester, not applicable or unspecified; Z3A.30 30 weeks gestation of pregnancy; O99.213 Obesity complicating pregnancy, third trimester
CPT/HCPCS: 36415; 59025; 74176; 80053; 81003; 85025; G0378; G0379

== ENCOUNTER 2024-10-16 02:58 | Outpatient (OUT) | payer BC, SELFPAY ==
--- OUTSIDE RECORDS SUMMARY | 2024-10-16 03:02 | XMS_ITS | CCD ---
Author Organization [facility] Care Team Providers Care Sales Training Manager Name Role Phone DR CARRIE PAYAN Primary Care Unavailable ANGÉLICA NARAYANAN Attending Unavailable ANGÉLICA NARAYANAN Consulting Unavailable ANGÉLICA NARAYANAN Admitting Unavailable MARQUIS HENSON Consulting Unavailable DR CARRIE PAYAN Consulting Unavailable DR CARRIE PAYAN Primary Care Unavailable DR CARRIE PAYAN Admitting Unavailable ORA, DR BUTLER Attending Unavailable Karla Ortega MD Primary Care Provider [phone] CARRIE PAYAN Attending Unavailable CARRIE PAYAN Attending Unavailable KARLA BURNS Attending Unavailable CARRIE PAYAN Attending Unavailable CARRIE PAYAN Attending Unavailable CARRIE PAYAN Attending Unavailable KARLA BURNS Attending Unavailable Medications Current Medications Medication Drug Class(es) Dates Sig (Normalized) Sig (Original) aspirin 81 mg delayed release oral tablet (5 sources) Platelet Aggregation Inhibitor, Nonsteroidal Anti-inflammatory Drug Start: 09-25-2024 End: 09-25-2025 take 1 tablet by mouth once daily aspirin 81 MG EC tablet Indications: Second trimester , 27 weeks gestation of Take 1 tablet (81 mg) by mouth Daily 30 tablet 6 09/25/2024 09/25/2025 Active azithromycin 250 mg oral tablet (2 sources) Macrolide Antimicrobial Start: 10-09-2024 azithromycin (Zithromax Z-Fam) 250 MG tablet Indications: 29 weeks gestation of , Third trimester As directed 6 tablet 10/09/2024 Active cephalexin 500 mg oral capsule (2 [...] Translations: [Irregular menstruation, unspecified] 05-16-2024 Chronic Other complications of (2 sources) Excessive growth affecting management of mother; Translations: [Maternal care for excessive growth, unspecified trimester, not applicable or unspecified] 10-09-2024 Episodic Other connective tissue disease (3 sources) Pain in left foot; Translations: [PAIN IN LEFT FOOT] Onset: 03-11-2022 Episodic Other female genital disorders (2 sources) Vaginal discharge; Translations: [Other specified noninflammatory disorders of vagina] 07-17-2024 Episodic Other and delivery including normal (14 sources) Second trimester ; Translations: [Encounter for [...] [27 weeks gestation of ] 09-25-2024 Episodic Residual codes; unclassified (2 sources) Gestation period, 29 weeks; Translations: [29 weeks gestation of ] 10-09-2024 Episodic Sprains and strains (1 source) Sprain [...] II, MD, PHD at 10-Oct-2024 07:43:20 AM [facility] Normal Not Available Comment on above: Order Comment: US OB SCAN FOR GROWTH Estimated Date of Delivery: 12/19/24 Gestational Age as of 09/25/2024: 27w6d Urinalysis macro (dipstick) panel (U)on 10-09-2024 Bilirubin, UA Negative Negative - 4(70) +++ mg/dL [facility] Blood, UA Negative Negative - 50 Roberto/mcL [facility] Clarity, UA Clear [facility] UA Yellow [facility] Glucose, UA Positive Negative - 1999(110) ++++ mg/dL [facility] Comment on above: 100 Interpretation and review of laboratory results Abnormal [facility] Ketones, UA Positive Negative - 160(16) ++++ mg/dL [facility] Comment on above: 15 Leukocytes, UA Negative Negative - 500+++ Christian/mcL [facility] Nitrite, UA Negative Negative - Positive [facility] pH, UA 7 5 - 9 [facility] e Protein, UA Trace Negative - 1999(20) ++++ mg/dL [facility] Spec Grav, UA 1.025 1 - 1.03 [facility] Urobilinogen, UA 0.2 0.2 - 12 mg/dL [facility] e GLUCOSE TOLERANCE 3 HOURon 0 10-07-2024 GLUCOSE TOLERANCE 3 HOUR mg/dL [facility] Comment on above: GLU FAST 83 (<95) Co l: 10/07/24 0909 GLU 1HR 163 (<180) Col: 10/07/24 1012 GLU 2HR 146 (<155) Col: 10/07/24 1112 GLU 3HR 83 (<140) Col: 10/07/24 1212 [facility] e Urinalysis macro (dipstick) panel (U)on 09-25-2024 Bilirubin, UA Negative Negative - 4(70) +++ mg/dL [facility] Blood, UA Negative Negative - 50 Roberto/mcL [facility] Clarity, UA Clear [facility] re Color, UA Yellow [facility] Glucose, UA Negative Negative - 1999(110) ++++ mg/dL [facility] Interpretation and review of laboratory results Abnormal [facility] Ketones, UA Negative Negative - 160(16) ++++ mg/dL [facility] Leukocytes, UA Positive Negative - 500+++ Christian/mcL [facility] Healthcare Comment on above: small Nitrite, UA Negative Negative - Positive [facility] pH, UA 8.5 5 - 9 [facility] Protein, UA Negative Negative - 1999(20) ++++ mg/dL [facility] Spec Grav, UA 1.02 1 - 1.03 [facility] care Urobilinogen, UA 1.0 0.2 - 12 mg/dL [facility] Urinalysis macro (dipstick) panel (U)on 2024 Bilirubin, UA Negative Negative - 4(70) +++ mg/dL [facility] Blood, UA Negative Negative - 50 Roberto/mcL [facility] Healthcare Clarity, UA Clear [facility] re Color, UA Yellow [facility] Glucose, UA Negative Negative - 1999(110) ++++ mg/dL [facility] Interpretation and review of laboratory results Abnormal [facility] Ketones, UA Negative Negative - 160(16) ++++ mg/dL [facility] Leukocytes, UA Moderate Negative - 500+++ Christian/mcL [facility] Nitrite, UA Positive Negative - Positive [facility] pH, UA 7 5 - 9 [facility] Protein, UA Positive Negative - 1999(20) ++++ mg/dL [facility] Comment on above: 100 Spec Grav, UA 1.02 1 - 1.03 [facility] care Urobilinogen, UA 1.0 0.2 - 12 mg/dL [facility] Urinalysis macro (dipstick) panel (U)on 08-14-2024 Bilirubin, UA Negative Negative - 4(70) +++ mg/dL [facility] Blood, UA Negative Negative - 50 Roberto/mcL [facility] Healthcare Clarity, UA Clear [facility] re Color, UA Yellow [facility] Glucose, UA Negative Negative - 1999(110) ++++ mg/dL [facility] Interpretation and review of laboratory results Abnormal [facility] Ketones, UA Negative Negative - 160(16) ++++ mg/dL [facility] Leukocytes, UA Negative Negative - 500+++ Christian/mcL [facility] Nitrite, UA Negative Negative - Positive [facility] pH, UA 5.5 5 - 9 [facility] Healthcar e Protein, UA Negative Negative - 2000(20) ++++ mg/dL [facility] Spec Grav, UA 1.02 1 - 1.03 [facility] Urobilinogen, UA 1.0 0.2 - 12 mg/dL [facility] e ALL CBC WITH AUTO DIFFon BASOPHILS ABSOLUTE AUTO 0 [facility] Basophils/100 WBC (Bld) 0.3 % 0.2 - 2.0 % [facility] Eosinophils/100 WBC (Bld) 0.9 % 0.9 - 7.0 % [facility] Erythrocyte distribution width (RBC) [Ratio] 14.8 % 11.0 - 15.0 % [facility] Hematocrit (Bld) [Volume fraction] 36.3 % 36.0 - 48.0 % [facility] Hemoglobin (Bld) [Mass/Vol] 11.9 g/dL Low 12.0 - 16.0 g/dL [facility] IMMATURE GRANULOCYTES ABS AUTO 0.04 High [facility] Immature granulocytes/100 WBC (Bld) 0.4 % 0.0 - 0.5 % [facility] Interpretation and review of laboratory results Abnormal [facility] LYMPHOCYTES ABSOLUTE AUTO 1.6 [facility] Lymphocytes/100 WBC (Bld) 15 % Low 20.5 - 60.0 % [facility] MCH (RBC) [Entitic mass] 27.2 pg 26.7 - 34.0 pg [facility] MCHC (RBC) [Mass/Vol] 32.8 g/dL 29.9 - 35.2 g/dL [facility] MCV (RBC) [Entitic vol] 83.1 fL 81.0 - 99.0 fL [facility] MONOCYTES ABSOLUTE AUTO 0.8 [facility] Monocytes/100 WBC (Bld) 7.4 % 1.7 - 12.0 % [facility] NEUTROPHILS ABSOLUTE AUTO 7.8 High [facility] Neutrophils/100 WBC (Bld) 76 % High 43.0 - 75.0 % [facility] Platelet mean volume (Bld) [Entitic vol] 9.2 fL Low 9.5 - 13.5 fL [facility] are TBH EO # 0.1 [facility] TBH PLT 322 [facility] TB[facility] RBC 4.37 [facility] TBH WBC 10.3 [facility] GLUCOSE 1 HOURon 07-30-2024 Glucose [Mass/Vol] 173 mg/dL High NINF - 13 0 mg/dL [facility] Interpretation and review of laboratory results Abnormal [facility] Healthcare [facility] RECURRENT VAGINITIS (HTRX)on 07-18-2024 ATOPOBIUM VAGINAE 21.066 Abnormal [facility] ATOPOBIUM VAGINAE Detected Abnormal [facility] althcare BVAB 2,3 (BACTERIAL VAGINOSIS ASSOCIATED BACTERIA 2, 3); MOBILUNCUS SPP 20.228 Abnormal [facility] Healthcare BVAB 2,3 (BACTERIAL VAGINOSIS ASSOCIATED BACTERIA 2, 3); MOBILUNCUS SPP Detected Abnormal [facility] BLANCA ALBICANS, PARAPSILOSIS, TROPICALIS 0 [facility] BLANCA ALBICANS, PARAPSILOSIS, TROPICALIS Not detected [facility] Healthcare BALNCA GLABRATA 0 [facility] Hea lthcare BLANCA GLABRATA Not detected [facility] BLANCA KRUSEI 0 [facility] Healt hcare BLANCA KRUSEI Not detected [facility] CHLAMYDIA TRACHOMATIS 0 [facility] CHLAMYDIA TRACHOMATIS Not detected [facility] ERMB, C; MEFA 26.225 Abnormal [facility] Health care ERMB, C; MEFA Detected Abnormal [facility] care GARDNERELLA VAGINALIS 21.744 Abnormal [facility] GARDNERELLA VAGINALIS Detected Abnormal [facility] Interpretation and review of laboratory results Abnormal [facility] Healthcare MEGASPHAERA (TYPES 1, 2) 0 [facility] MEGASPHAERA (TYPES 1, 2) Not detected [facility] MYCOPLASMA GENITALIUM [address] [facility] [address] MYCOPLASMA GENITALIUM Not detected [facility] NEISSERIA GONORRHOEAE [address] [facility] [facility] NEISSERIA GONORRHOEAE Not detected [facility] Healthcare TET B, TET M 24.757 Abnormal [facility] are TET B, TET M Detected Abnormal [facility] are TRICHOMONAS VAGINALIS 0 [facility] TRICHOMONAS VAGINALIS Not detected [facility] e Urinalysis macro (dipstick) panel (U)on 07-17-2024 Bilirubin, UA Negative Negative - 4(70) +++ mg/dL [facility] Blood, UA Negative Negative - 50 Roberto/mcL [facility] Healthcare Clarity, UA Clear [facility]ca re Color, UA Yellow [facility] e Glucose, UA Negative Negative - 1999(110) ++++ mg/dL [facility] Interpretation and review of laboratory results Abnormal [facility] Ketones, UA Positive Negative - 160(16) ++++ mg/dL [facility] Leukocytes, UA Trace Negative - 500+++ Christian/mcL [facility] Nitrite, UA Negative Negative - Positive [facility] pH, UA 5.5 5 - 9 [facility] e Protein, UA Trace Negative - 1999(20) ++++ mg/dL [facility] Spec Grav, UA 1.03 1 - 1.03 [facility] Urobilinogen, UA 0.2 0.2 - 12 mg/dL [facility] Urinalysis macro (dipstick) panel (U)on 06-17-2024 Bilirubin, UA Negative Negative - 4(70) +++ mg/dL [facility] Blood, UA Negative Negative - 50 Roberto/mcL [facility] Clarity, UA Clear [facility]ca re Color, UA Yellow [facility] Healthcar e Glucose, UA Negative Negative - 1999(110) ++++ mg/dL [facility] Interpretation and review of laboratory results Abnormal [facility] Ketones, UA Negative Negative - 160(16) ++++ mg/dL [facility] Leukocytes, UA Negative Negative - 500+++ Christian/mcL [facility] Nitrite, UA Negative Negative - Positive [facility] pH, UA 6 5 - 9 [facility] e Protein, UA Positive Negative - 1999(20) ++++ mg/dL [facility] Comment on above: 100 Spec Grav, UA 1.03 1 - 1.03 [facility] Urobilinogen, UA 0.2 0.2 - 12 mg/dL [facility] ALL CBC WITH AUTO DIFFon BASOPHILS ABSOLUTE AUTO 0.0 [facility] Basophils/100 WBC (Bld) 0.4 % 0.2 - 2.0 % [facility] Eosinophils/100 WBC (Bld) 1.1 % 0.9 - 7.0 % [facility] Erythrocyte distribution width (RBC) [Ratio] 14.2 % 11.0 - 15.0 % [facility] Hematocrit (Bld) [Volume fraction] 39.3 % 36.0 - 48.0 % [facility] Health[facility] e Hemoglobin (Bld) [Mass/Vol] 12.8 g/dL 12.0 - 16.0 g/dL [facility] IMMATURE GRANULOCYTES ABS AUTO 0.02 [facility] Immature granulocytes/100 WBC (Bld) 0.3 % 0.0 - 0.5 % [facility] Interpretation and review of laboratory results Abnormal [facility] LYMPHOCYTES ABSOLUTE AUTO 1.6 [facility] Lymphocytes/100 WBC (Bld) 21.5 % 20.5 - 60.0 % [facility] MCH (RBC) [Entitic mass] 26.8 pg 26.7 - 34.0 pg [facility] MCHC (RBC) [Mass/Vol] 32.6 g/dL 29.9 - 35.2 g/dL [facility] MCV (RBC) [Entitic vol] 82.2 fL 81.0 - 99.0 fL [facility] MONOCYTES ABSOLUTE AUTO 0.4 [facility] Monocytes/100 WBC (Bld) 5.1 % 1.7 - 12.0 % [facility] NEUTROPHILS ABSOLUTE AUTO 5.3 [facility] Neutrophils/100 WBC (Bld) 71.6 % 43.0 - 75.0 % [facility] Platelet mean volume (Bld) [Entitic vol] 9.2 fL Low 9.5 - 13.5 fL [facility] are TB EO # 0.1 [facility] TB PLT 324 [facility] RBC 4.78 [facility] TB WBC 7.4 [facility] HCG ( test) Ql (U)o n 05-16-2024 Interpretation and review of laboratory results Abnormal [facility] Preg Test, Ur Positive [facility] care [facility] Health[facility] e Cytology Cervical or vaginal smear or scraping studyOrdered By: Sheila Flowers on 04-07-2024 [facility] Healthcar e Coding Summary.on 04-07-2022 Coding Summary. CD:[id number] G h0bWw+PGhlYWQ+EX6PJEM gW95lzIHeqW4KT2aHVV3I WNMKAEODPH0FRW1kwUT6L TlgM6XgegZa ScapuZAcTP11PBq4OFA8h XzsYEmizA1nkQZpL4e2Nj IfWH51iS41HKndXXRvJlW 3LjZpbjsgbWFy P0kjNvUuaBAgFcw+PHRhY mxlIHdpZHRoPScxMDAlJy WthHjaLF4oPo8vKWFnPDZ vbGxhcHNlOiBj d1arHPBoHKjkHP6lrOeaA 9YsjUZ0DUDnp3w5Gk84bR I+NOAuJKP4jBzmORifr70 4WsLix1ivWVH1 lOAtAOykFXY9B54es1X6A TRgDMToATH9rQR8wD2mkI cckmarD6NgdIQgJhK9WTS 8hGUflK4nhSuz wuoayG0aQdn+Z23NLI8DM EAJBX2IGwi1V7ChDebriW I+PJ14ZOAkOX13dVGlcUP rb3qavKs7FqZa YEVxGRU0uUngLCknu9UtC GVrL93txVIvl1O3UXMbjR woyRFnDrNlmQE0fW4sGDq zwfkpk2jgbawn Kzrfa1lkwm12cJ90H99iN VxhXNAgPJJ4MRRtMHXprB txst0zmL6bOe1+NQvvf9l ze8gcuDa1DcEz DBLorqOxpJbcPVX8a5ZcC c56T2OxnBlki3DeJns0yx 77cMQpj5W8dNK9GJmxRLE rpD7rRPtnZrA3 AYBbRwMfjM93iHOnBFisW t4rrXehsTynTL5lHBOuqm tuTCHrwW4kSIYvvKQfpUz lIK2hXXAylfrj b848TmLoMZG5BNIydETxY 6BbzM4fYsFtYQPoETIeT1 QsnSYtGFcbJ784YQooThB 6KJFkdqGkE5Lm WMIsdNqpCjH6u3T1Ap0Mk 1KwiwygSZH6AFeoRZK7Hg O2EfDmWvF5F7SfPxg5ZEW tmCwtEE5hZ1Gv LYEdglpywajmqKD0FZGnR LLxzZ06uFLiHBbtQq7dl2 T1p287MLWnSZWscT69On5 udDogMTBwdCBU gQ5kxzwku7wiulisOpWwE UUkMHr0SDu3YYFktEcrNw UfLIO0JiO9DNU9jCKcvN4 olXekffmzrH3p Oyc+T19xnD1dCDX5UIU0n tcoDNHedxEjVZ55MC05Q2 RyPjwvdGFibGU+PGRpdiB lpKjoPE4eSkLd n5iir6JbSQtfJ7UvATPyZ GbpWzb4SXZqOAV0sNY9yT 7bLXIjUZvuj1N8lNW7O9O holPdja3te9ya NLRaCOpuC39ykUGlf8L4W BMplBD9CNBxtGsdJvTzkP 93Oyc+JKCwoZsae7KeEzz ay2znq7vtyEp5 KzGoDJFrgiKghZnoQKS6c 2XsAc57X01lDZrjJUOzXZ FqAXRkOEQjlFoqez8jdW8 wIi8+PGNvbCB3 aRF3zL9qMJBwDbE6VVfyK 870ZbEtgJRcGhskc6jdc4 hrfAi8WaNoMNMoawJsiEe iDZK2e3IwMa23 K64tSYjdCRBxOVYpICOoJ HLioBwisy6noL8gFt1+PC 6rq6ugut69qL34yJZ+PHR yYUY9dYjuZOff UIDkjY7zATwnBmZ0TBGyV fUilP40vDJvOXmeYs2hsD polCmdTQ8lMPItozxtw69 1GgLwh2wpEWMy aWKfGVgyZWB5Y43fk3I0A MCyCDDbSRF2bXN1bR2wjT lnbjogbGVmdDsgdmVydGl xENulEMarV936 IHRvcDsnPlBhdGllbnQgT uSwLPc4M5QfWme3OWPivO lwOL7peUHcKRffFl1duBa ecEvpEK9vTWRt wgkle985RpUvj8mxZKHyc FGkNVvbENK5W33cw8J8DN YmBINgIXE5rMZ2vO1wtIu nbjogbGVmdDsg qcAuzZqaDVylLLomR979F HRvcDsnPkJpcnRoIERhdG F8IK69ZP59xBJbz3S1bLI 6W2OcZOCbzldp onvkpOF1SXQxPWIviP71F q5iaXbiZx0kPCMpNCK0RE MuwGHkC5MweM6eKkTeTUB qAXPuR6QgpQJy WBpgT829VAhrSfL3EOLbm fFrO7WtKUMtcHpwJgN6i0 T6Zp1XY0E6HT17LR00qFL ba9W7eBB7C8Ej XGEklngupkzqnWR0OAZlU GMwnP99Gc1itXshPn9mQS NdTAF5IUOuhHIiN4EyfL9 yOiAjMDAwMDAw M5UjvYBuKYbuM423GFrdD sA9ROFjscGfS9EiDSTtgD kgIaF8k5I5Li3GVYz1FD3 4GK63eHWjx7G8 uHL3L8VqCJZeruyjgvltv EN4SUJtDINukV16Ch1wqY crPm9zHORzCCX6TSNqiRD mS0KdpX7uZaQc OJAoOUBfO4KrsTVqAZlqZ 769TRfqQfC6TEXwicAvE0 AgXEPamErwNpU2y4I2Ow4 PWHKgDS73GLN2 hUA1KS92KM72S1LrEnkvn GFibGU+PHRhYmxlIHdpZH RoPScxMDAlJyBzdHlsZT0 tJf6vEQYaDUPa zJcazNAyZqFox0juVLYdH JueXC9uzXgsG5SzbGC0FV Yyp7o5Gp28X96mV8ApqAO +RRTqtRT1wWQ8 pR1gTfPfDgD9RKbgF561P rPtgCYrMsbdd1bsa1kgjS v8LrL6SMNnqoUyfWvaTOL 6d0QdBo38I19u IHdpZHRoPSIxNSUiIHZhb Ymhmd0dnI4eVw6+PGNvbC Z7fMU8zO1cPtDtKhG3TKo mC901HvClaNFo Zqabq4orj1wxxQd5GzWvK QJxszZyrIcjLHM7x6EpBn 90V3BhqOrch7GeNfi2dq3 4mUWln1G7bBZ0 D0GaPUBuhsegjKEgkQqmC V5sFMIuwarcNYStvV7zUA EsA8o6EeMiYjL5MWhtG7F gmfT5ZFYpxHUn QMiwNGM5J85zl1P2ALSqY DEoMQA6cUB3yP2fdQffcv ogbGVmdDsgdmVydGljYWw tYBvmY800JONo xWdiQQWbnB7rCWFvyYAmd EoeEW4xBQCasheeUgRAFE BQLCBIQUxFWSBOSUNPTEU 4P2XdZak9OIEj gQrzCT6hxKEpBFqkYa4lk BbosTaiQJ5jGSBhdzpbIG KerI8bHZJsgMWdjZiwKD5 eYTAahbgzq716 OxMiPHQ1BQVlhSDrT7Bdp O4bCiChFEHwKLTqC3YexZ MaUQuwQ410ESjxPwX9HOD mliGkV0SpOCEx eBkkUuN1p0Y2Zc4tLZ9nM L2iZPi8MJ60PY61mVXco3 R0sCB8M7ElBJVhsndmhfb fcJT9CYMdXDJk vT92hAHuAGvvLj2ne6A3m 129ULSaONOyiP62Zs8ugR jxZVNjhXALrK7anzsmy2b vcjogIzAwMDAw MMp6LZj5YGHysCgpRiAyI FR7LwY5AOO4dYJzxN4cxE aevjdchF1zFcl+MjQgWWV xygD1M8YpPdr5 SCNpaMceAO2kvERiWUpfX f2wkRzfaSriQO3pPYFoza ukPIHwfF5bFEHbdMZggJf vCG1nZXGndpyg c648VsUlFJI4FFDboYBdA 7EwmN6eYbYsXUDtHSCeB3 AsyJVyWHrzR059DKxlHtR 5ZCTybvObR4Yi QEKsnIerLzS3b0W7Ww7GL P2ltCY1Z1ElQmi1HYBtsL iiRC3lkNNyNScfHv5gaMi gpMdmZK6oSPVz dltmYFZczA4hXJSiyOFiq PgrZA2bELGieqeoq466Tq OjYEH9PYLkkQWbF7ZitA3 yOiAjMDAwMDAw B1KvkWBjIBztA243QEibK nG5AAErdxOhU7ShNDCdwW xjXuW3d7O8Ix1EoMYfFQR lGX70RH12UC62 X4VaLmkmuJPieGI+PHRhY mxlIHdpZHRoPScxMDAlJy OvvPtaJF8mUe0iWVWwQEZ vbGxhcHNlOiBj f1bgTPBpLLrwCS2lqMnzS 2MxtRC7MMYis8f2Sx78E7 6uM8DagSM+RUDbrLI3sQN 6iW7lPkAfJrZ9 FBviK829AtHakXUfXhjar 9ual7bayEb9UyRiROCvbx IsaOhdJCV0r1CmVm03D90 sIHdpZHRoPSIy TCQpYZVabMkvgk4yaN5oA i8+XATfwBB3wFF9pA8rTf JvKbS3UApfI702KyWocLZ bWdvxC95aX4Ce dXA+ODDiMmm4EXMvvZqvC P6woHNcARwaFk4eSIJ3Mn UkPyBzVKpfF3UyUOSkmoq irjwtxDH1DNRn OSBfsG10Hz2rgMdaBx5nI COqTXM7GEUlfCCaX5BqzP 9zDlQlKONtENJnI0KpxKW zMZtoQ003QYpz SmF6GPUdsmHkL6LxNTIzb PdgJpZ2q5B5Vh9MlWjclC YxKE3yLoHeTXw0R3OiPqs 2YFIajIgpMC3d cELkCBusHr1baUlhmMzeI O0jQXKdnglqg505ZhUww2 xzGVNhoIRxRVpoDFU5N76 ya1O9YSWxFRLr UIK8yER5kP3neUspocaxp GVmdDsgdmVydGljYWwtYW qoF628XXZllQwdQdDLYdu 4E6ClBzj0AMAy mPveKU7uxEKrHTlvSp1pv QvyqQodKK5iCSEnfxcmw2 11ZtBnx3crQODqbJGoZEw dHCV3Q60ff6U1 MFRdPFEuIWX7aDO6zO1xk GlnbjogbGVmdDsgdmVydG kxVCrrOItmI222FNKmnPg dUe3GYxe9R4Xs Nls9NIUesXspXR1uhGVuL YevQy8nuKlsvXygOJ1sPD Qodtoeu275QnRwe0zqKPK wcHQgVGltZXM7 V18lu3P5DFLaAHBfLXL9h AX4qL5xnWhlydmlhLMeeX lrfuFduQszFPntSYksB02 6IHRvcDsnPlBh eWVyOjwvdGQ+BY78yk63J 2DfQybrIvt1ONPkGKM7bK B6dW0gGCBwXZtzv3H0sQX 8X6ZmjeVuae5w b2xs (more content not included)... Normal [facility] XR Ankle 3+ Views Lefton XR [...] [facility] Consent for Treatmenton Consent for Treatment [id number] .00CD:127 [facility] Physician Orderon 04-03-2022 Physician Order [id number] 1.00CD:127 [facility] XR ANKLE LT MIN 3 Von 2021 XR ANKLE LT MIN 3 V EXAM: XR ANKLE LT OR N 3 V, XR FOOT LT MIN [...] by: MARQUIS HENSON Date: 2022-03-11 16:04 Normal [facility] PAP ACOG PANEL 2: 21 to 29on 10-24-2021 . . Normal [facility] Comment on above: Performed By: #### [id number] #### [facility] [address] [place] [address] Dr. Aura Griffiths Age Gdln ACOG Testing 21-29 Normal [facility] Comment on above: Performed By: #### [id number] #### [facility] [address] [place] [address] Dr. Aura Griffiths DIAGNOSIS: Comment Normal [facility] Comment on above: Result Comment: NEGA TIVE FOR INTRAEPITHELIAL LESION OR MALIGNANCY. Performed By: #### [id number] #### [facility] [address] [place] [address] Dr. Aura Griffiths Methodology: Comment Normal [facility] Comment on above: Result Comment: This liquid based ThinPrep(R) pap test was screened with the use of an image guided system. Performed By: #### [id number] #### [facility] [address] [place] [address] Dr. Aura Griffiths Note: Comment Normal [facility] Comment on above: Result Comment: The Pap smear is a screening test designed to aid in the detection of premalignant and malignant conditions of the uterine cervix. It is not a diagnostic procedure and should not be used as the sole means of detecting cervical cancer. Both false-positive and false-negative reports do occur. . Performed By: #### [id number] #### [facility] [address] [place] [address] Dr. Aura Griffiths Performed by: Comment Normal [facility] Comment on above: Result Comment: Radha Trevino, Dsp Engineer (ASCP) Performed By: #### [id number] #### [facility] [address] [place] [address] Dr. Aura Griffiths Reflex Criteria: Comment Normal [facility] Comment on above: Result Comment: The HPV DNA reflex criteria were not met with this specimen result therefore, no HPV testing was performed. . Performed By: #### [id number] #### [facility] [address] [place] [address] Dr. Aura Griffiths Specimen adequacy: Comment Normal [facility] Comment on above: Result Comment: Sati sfactory for evaluation. Endocervical and/or squamous metaplastic cells (endocervical component) are present. Performed By: #### [id number] #### [facility] [address] [id number] [address] Aura Griffiths Vital Signs Date Time Vital Sign Value Performing Clinician Aleksandr dobbs 10-09-2024 10:43-0500 Body mass index (BMI) [Ratio] 46.17 kg/m2 Carrie Ora DO Work Phone: [facility] 10-09-2024 10:43-0500 Body weight 122.02 kg Carrie Ora DO Work Phone: [facility] 10-09-2024 10:43-0500 Diastolic blood pressure 70 mm[Hg] Carrie Ora DO Work Phone: [facility] 10-09-2024 10:43-0500 Systolic blood pressure 120 mm[Hg] Carrie Ora DO Work Phone: [facility] 09-25-2024 08:58-0500 Body mass index (BMI) [Ratio] 45.49 kg/m2 Carrie Ora DO Work Phone: [facility] 09-25-2024 08:58-0500 Body weight 120.2 kg Carrie Ora DO Work Phone: [facility] 09-25-2024 08:58-0500 Diastolic blood pressure 72 mm[Hg] Carrie Ora DO Work Phone: [facility] 09-25-2024 08:58-0500 Systolic blood pressure 122 mm[Hg] Carrie Ora DO Work Phone: [facility] 2024 09:48-0500 Body mass index (BMI) [Ratio] 44.97 kg/m2 Karla OSPINA Work Phone: [facility] 2024 09:48-0500 Body weight 118.84 kg Karla OSPINA Work Phone: [facility] 2024 09:48-0500 Diastolic blood pressure 70 mm[Hg] Karla OSPINA Work Phone: [facility] 2024 09:48-0500 Systolic blood pressure 120 mm[Hg] Karla OSPINA Work Phone: [facility] 08-14-2024 11:20-0500 Body mass index (BMI) [Ratio] 44.53 kg/m2 Carrie Ora DO Work Phone: [facility] 08-14-2024 11:20-0500 Body weight 117.66 kg Carrie Ora DO Work Phone: [facility] 08-14-2024 11:20-0500 Diastolic blood pressure 82 mm[Hg] Carrie Ora DO Work Phone: [facility] 08-14-2024 11:20-0500 Systolic blood pressure 124 mm[Hg] Carrie Ora DO Work Phone: [facility] 07-17-2024 10:48-0500 Body mass index (BMI) [Ratio] 45.28 kg/m2 Carrie Ora DO Work Phone: [facility] 07-17-2024 10:48-0500 Body weight 119.66 kg Carrie Ora DO Work Phone: [facility] 07-17-2024 10:48-0500 Diastolic blood pressure 70 mm[Hg] Carrie Ora DO Work Phone: [facility] 07-17-2024 10:48-0500 Systolic blood pressure 120 mm[Hg] Carrie Ora DO Work Phone: [facility] 06-17-2024 10:48-0400 Body mass index (BMI) [Ratio] 44.99 kg/m2 Carrie Ora DO Work Phone: [facility] 06-17-2024 10:48-0400 Body weight 118.9 kg Carrie Ora DO Work Phone: [facility] 06-17-2024 10:48-0400 Diastolic blood pressure 70 mm[Hg] Carrie Ora DO Work Phone: [facility] 06-17-2024 10:48-0400 Systolic blood pressure 120 mm[Hg] Carrie Ora DO Work Phone: [facility] 05-16-2024 09:16-0400 Body mass index (BMI) [Ratio] 46 kg/m2 [facility] 05-16-2024 09:16-0400 Body weight 121.56 kg [facility] 05-16-2024 09:16-0400 Diastolic blood pressure 70 mm[Hg] [facility] 05-16-2024 [id number] Systolic blood pressure 120 mm[Hg] [facility] Encounters Encounter Date Encounter Type Care Provider Facility Start: 10-09-2024 End: 10-09-2024 flow sheet Carrie Ora DO Work Phone: [facility] Comment on above: 29 weeks gestation o f ; Third trimester ; Excessive growth affecting management of , antepartum, single or unspecified fetus Start: 10-09-2024 End: 10-09-2024 ambulatory CARRIE ORA Not Available Start: 10-07-2024 End: 10-07-2024 Clinisync Result Encounter Carrie Ora DO Work Phone: [facility] Unsolicited Start: 10-07-2024 End: 10-07-2024 Clinisync Result Encounter Carrie Ora DO Work Phone: [facility] Unsolicited Start: 09-25-2024 End: 09-25-2024 Bamboo flowsheet Carrie Ora DO Work Phone: [facility] Start: 09-25-2024 End: 09-25-2024 Bamboo flowsheet Carrie Ora DO Work Phone: [facility] Start: 09-25-2024 End: 09-25-2024 flow [...] Date Procedure Procedure Detail Performing Clinician Start: 10-09-2024 Urnls dip stick/tabl et rgnt non-auto w/o micrscp Carrie Ora DO Work Phone: Start: 10-07-2024 GLUCOSE TOLERANCE 3 HOUR Carrie [...] Treatment Date Care Activity Detail Author Start: 10-23-2024 End: 10-23-2024 Patient encounter procedure 10/23/2024 10:50 AM EST Routine [facility] [address] [place] [address] Karla Burns PA [address] [place] [address] [facility] Start: 10-09-2024 End: 10-09-2025 US biophysical profile w non stress test US biophysical profile w non stress test Imaging Routine Excessive growth affecting management of , antepartum, single or unspecified fetus Expected: 10/09/2024 (Approximate), Expires: 10/09/2025 [facility] Work Phone: Comment on above: Expected: 10/09/2024 (Approximate), Expires: 10/09/2025 Start: 10-09-2024 End: 10-09-2025 US for US OB follow up transabdominal approach Imaging Routine Excessive growth affecting management of , antepartum, single or unspecified fetus Expected: 10/09/2024, Expires: 10/09/2025 [facility] Comment on above: Expected: 10/09/2024 , Expires: 10/09/2025 Start: 10-09-2024 End: 10-09-2024 Patient encounter procedure 10/09/2024 10:40 AM EST Routine [facility] [address] [place] [address] Carrie Payan, DO [address] [place], [place] [id number] [facility] Start: 10-09-2024 End: 10-09-2024 Professional / ancillary services management 10/09/2024 10:00 AM EST Ancillary Procedure [facility] [address] [place] [address] [facility] Start: 09-25-2024 End: 09-25-2025 Measurement of glucose 3 hours after glucose challenge for glucose tolerance test Glucose tolerance, 3 hours Lab Routine Elevated glucose tolerance test Expected: 09/25/2024 (Approximate), Expires: 09/25/2025 [facility] Comment on above: Expected: 09/25/2024 (Approximate), Expires: 09/25/2025 Start: 09-25-2024 End: 09-25-2025 US for US OB follow up transabdominal approach Imaging Routine Second trimester 27 weeks gestation of Elevated glucose tolerance test Expected: 09/25/2024, Expires: 09/25/2025 [facility] Work Phone: Comment on above: Expected: [...] EST Ancillary Procedure [facility] [address] [place] [address] [facility] Start: 07-17-2024 End: 09-16-2024 Alpha fetoprotein, maternal Alpha fetoprotein, maternal Lab Routine Second trimester Expected: 07/17/2024 (Approximate), Expires: 09/16/2024 [facility] Comment on above: Expected: 07/17/2024 (Approximate), Expires: 09/16/2024 Start: 07-17-2024 End: 07-17-2025 Measurement of glucose 1 hour after glucose challenge for glucose tolerance test GTT, 1 hour Lab Routine History of gestational diabetes Expected: 07/17/2024 (Approximate), Expires: 07/17/2025 [facility] Comment on above: Expected: 07/17/2024 (Approximate), Expires: 07/17/2025 Start: 07-17-2024 End: 07-17-2025 US for US OB ANATOMY SINGLE W US OB CERVICAL LENGTH Imaging Routine Screening, , for anatomic survey Expected: 07/17/2024 (Approximate), Expires: 07/17/2025 [facility] Comment on above: Expected: 07/17/2024 (Approximate), Expires: 07/17/2025 Start: 07-15-2024 End: 07-15-2024 Patient encounter procedure 07/15/2024 10:50 AM EST Routine [facility] [address] [facility] [place] [id number] Carrie Payan DO [address] [place] [address] [facility] Start: 06-17-2024 End: 06-17-2024 Patient encounter procedure [facility] Comment on above: Arrived Start: 05-16-2024 End: 05-16-2025 ABO/Rh ABO/Rh Lab Routine Missed menses Expected: 05/16/2024 (Approximate), Expires: 05/16/2025 [facility] Comment on above: Expected: 05/16/2024 (Approximate), Expires: 05/16/2025 Start: 05-16-2024 End: 05-16-2025 Blood type and Indirect antibody screen panel - Blood Type and screen Lab Routine Missed menses Expected: 05/16/2024 (Approximate), Expires: 05/16/2025 [facility] Work Phone: Comment on above: Expected: 05/16/2024 (Approximate), Expires: 05/16/2025 Start: 05-16-2024 End: 05-16-2025 Drugs of abuse panel - Urine by Screen method Rapid drug screen, urine Lab Routine Encounter for supervision of normal first in first trimester , unspecified gestational age Expected: 05/16/2024 (Approximate), Expires: 05/16/2025 [facility] Comment on above: Expected: 05/16/2024 (Approximate), Expires: 05/16/2025 Start: 05-16-2024 End: 05-16-2025 US Pelvis transvaginal US OB transvaginal Imaging Routine Missed menses Expected: 05/16/2024 (Approximate), Expires: 05/16/2025 [facility] Comment on above: Expected: 05/16/2024 (Approximate), Expires: 05/16/2025 Bacteria identified in Urine by Culture Urine culture Microbiology Routine Missed menses Ordered: 05/16/2024 [facility] Comment on above: Ordered: 05/16/2024 Bacteria identified in Urine by Culture Urine culture Microbiology Routine UTI symptoms Ordered: 2024 [facility] Work Phone: Comment on above: Ordered: 2024 CBC W Auto Different ial panel - Blood CBC and differential Lab Routine Missed menses Ordered: 05/16/2024 [facility] Comment on above: Ordered: 05/16/2024 CHLAMYDIA TRACHOMATI S (GENITO/STI) CHLAMYDIA TRACHOMATIS (GENITO/STI) Lab Routine Exposure to STD Ordered: 07/17/2024 [facility] Comment on above: Ordered: 07/17/2024 Hemoglobin A1c/Hemoglobin.total in Blood Hemoglobin A1c Lab Routine Missed menses Ordered: 05/16/2024 [facility] Comment on above: Ordered: 05/16/2024 Hepatitis B virus surface Ag [Presence] in Serum or Plasma by Immunoassay Hepatitis B surface antigen Lab Routine Missed menses Ordered: 05/16/2024 [facility] Comment on above: Ordered: 05/16/2024 Hepatitis C virus Ab [Presence] in Serum or Plasma by Immunoassay Hepatitis C antibody Lab Routine Missed menses Ordered: 05/16/2024 [facility] Comment on above: Ordered: 05/16/2024 HIV-1/HIV-2 antigen/antibody combination immunoassay HIV-1 and HIV-2 antibodies Lab Routine Missed menses Ordered: 05/16/2024 [facility] Comment on above: Ordered: 05/16/2024 Neisseria gonorrhoea e DNA [Presence] in Unspecified specimen by XIOMARA with probe detection Neisseria gonorrhea DNA probe, direct Lab Routine Exposure to STD Ordered: 07/17/2024 [facility] Comment on above: Ordered: 07/17/2024 Reagin Ab [Presence] in Serum by RPR RPR Lab Routine Missed menses Ordered: 05/16/2024 [facility] Comment on above: Ordered: 05/16/2024 Rubella antibody, IgG Rubella an tibody, IgG Lab Routine Missed menses Ordered: 05/16/2024 [facility] Comment on above: Ordered: 05/16/2024 SURESWAB(R) ADVANCED VAGINITIS PLUS, TMA SURESWAB(R) ADVANCED VAGINITIS PLUS, TMA Pathology and Cytology Routine Vaginal discharge Ordered: 07/17/2024 [facility] Work Phone: Comment on above: Ordered: 07/17/2024 Payers Date Payer Category Payer Unknown [id number] 2023 [facility] [id number] 2023 Unknown BCBS BCBS [id number] 2023-Present [phone] [address] [place] [address] [id number] 2023 Unknown [id number] 1997 Unknown [id number] 93 1997 Unknown [id number] 93 1997 Unknown [id number] [id number] 259 1997 Unknown [id number] 259 1997 Unknown [id number] 259 1997 Unknown [id number] [id number] 259 1997 Unknown [id number] 259 1997 Unknown [id number] [id number] 259 1997 Unknown [id number] [id number] 259 1997 Unknown [id number] [id number] 259 1997 Unknown [id number] 259 1959 Private Health Insurance [id number] 1959 Unknown [id number] Social History Date Type Detail Facility Start: 07-31-2023 Tobacco smoking stat [facility] Never smoked tobacco [facility] Start: 07-31-2023 Tobacco use and exposure Smokeless t obacco non-user [facility] Start: 05-16-2024 End: 10-09-2024 Alcoholic beverage intake Lifetime non-drinker (finding) [facility] Start: 07-31-2023 End: 04-07-2024 History of Social function [facility] Start: 07-31-2023 End: 04-07-2024 Tobacco use panel [facility] Start: 03-28-2024 [facility] Start: 1995 Sex assigned at Female [facility] Start: 01-23-2023 Gender identity Identifies as female gender (finding) [facility] Clinical Notes 05-16-2024 to 10-09-2024 Kathleen Dickens LPN - 10/09/2024 10:40 AM Scarlet Dickens LPN - 09/25/2024 9:00 AM BHAVESH Mares - 2024 9:30 AM Alvin Ventura LPN - 08/14/2024 10:40 AM EST Note Date & Type Note Facility 10-09-2024 History of Presen t illness Narrative Reason for Appointment: Patient ID: Olga Flanagna is a 29 y.o. female who presents for Routine Visit Patient presents today for Return OB appointment. MEDICATIONS Current Outpatient Medications Medication Instructions aspirin 81 mg, Oral, Daily azithromycin (Zithromax Z-Fam) 250 MG tablet As directed ALLERGIES No Known Allergies PROBLEMS Active Ambulatory Problems Diagnosis Date Noted No Active Ambulatory Problems Resolved Ambulatory Problems Diagnosis Date Noted No Resolved Ambulatory Problems Past Medical History: Diagnosis Date Depression screening Encounter for gynecological examination (general) (routine) without abnormal findings Family planning Insulin resistance Morbid obesity with BMI of 40.0-44.9, adult ([facility]) Negative test On Depo-Provera for contraception HISTORY PAST MEDICAL HISTORY SOCIAL HISTORY Past Medical History: Diagnosis Date Depression screening Encounter for gynecological examination (general) (routine) without abnormal findings Family planning Insulin resistance Morbid obesity with BMI of 40.0-44.9, adult ([facility]) Negative test On Depo-Provera for contraception Social [...] nursing note reviewed. Exam conducted with a vp security present. Vitals: Estimated body mass index is 46.17 kg/m as calculated from the following: Height as of 01/24/23: 5' 4 . Weight as of this encounter: 269 lb. BP: 120/70 Patient's last menstrual period was 03/14/2024. ASSESSMENT & PLAN ICD-10-CM 1. 29 weeks gestation of Z3A.29 POCT urinalysis dipstick manually resulted azithromycin (Zithromax Z-Fam) 250 MG tablet 2. Third trimester Z34.93 POCT urinalysis dipstick manually resulted azithromycin (Zithromax Z-Fam) 250 MG tablet Patient presents today for a routine obstetrics appointment. Patient is currently 29w6d with a Estimated Date of Delivery: 12/19/24. Patient had growth scan done today and is in 97% for growth. Patient given orders for NST/BPP and growth scan. Patient to RTC 2 weeks. Documented by Kathleen Dickens LPN on behalf of: Carrie Payan DO documented in this encounter [facility] 09-25-2024 History of Presen t illness Narrative [...] Morbid obesity with BMI of 40.0-44.9, adult ([facility]) Negative test On Depo-Provera for contraception HISTORY PAST MEDICAL HISTORY SOCIAL HISTORY Past Medical History: Diagnosis Date Depression screening Encounter for gynecological examination (general) (routine) without abnormal findings Family planning Insulin resistance Morbid obesity with BMI of 40.0-44.9, adult ([facility]) Negative test On Depo-Provera for contraception Social [...] nursing note reviewed. Exam conducted with a vp security present. Vitals: Estimated body mass index is [...] Carrie Payan DO documented in this encounter [facility] 2024 History of Presen [...] Morbid obesity with BMI of 40.0-44.9, adult ([facility]) Negative test On Depo-Provera for contraception HISTORY PAST MEDICAL HISTORY SOCIAL HISTORY Past Medical History: Diagnosis Date Depression screening Encounter for gynecological examination (general) (routine) without abnormal findings Family planning Insulin resistance Morbid obesity with BMI of 40.0-44.9, adult ([facility]) Negative test On Depo-Provera for contraception Social [...] nursing note reviewed. Exam conducted with a vp security present. Vitals: Estimated body mass index is [...] of: BHAVESH Javier documented in this encounter [facility] 08-14-2024 History of Presen [...] Morbid obesity with BMI of 40.0-44.9, adult ([facility]) Negative test On Depo-Provera for contraception HISTORY PAST MEDICAL HISTORY SOCIAL HISTORY Past Medical History: Diagnosis Date Depression screening Encounter for gynecological examination (general) (routine) without abnormal findings Family planning Insulin resistance Morbid obesity with BMI of 40.0-44.9, adult ([facility]) Negative test On Depo-Provera for contraception Social [...] nursing note reviewed. Exam conducted with a vp security present. Vitals: Estimated body mass index is [...] Carrie Payan DO documented in this encounter [facility] 07-17-2024 History of Presen [...] Morbid obesity with BMI of 40.0-44.9, adult ([facility]) Negative test On Depo-Provera for contraception HISTORY PAST MEDICAL HISTORY SOCIAL HISTORY Past Medical History: Diagnosis Date Depression screening Encounter for gynecological examination (general) (routine) without abnormal findings Family planning Insulin resistance Morbid obesity with BMI of 40.0-44.9, adult ([facility]) Negative test On Depo-Provera for contraception Social [...] nursing note reviewed. Exam conducted with a vp security present. Vitals: Estimated body mass index is [...] Carrie Payan DO documented in this encounter [facility] 06-17-2024 History of Presen [...] Morbid obesity with BMI of 40.0-44.9, adult ([facility]) Negative test On Depo-Provera for contraception HISTORY PAST MEDICAL HISTORY SOCIAL HISTORY Past Medical History: Diagnosis Date Depression screening Encounter for gynecological examination (general) (routine) without abnormal findings Family planning Insulin resistance Morbid obesity with BMI of 40.0-44.9, adult ([facility]) Negative test On Depo-Provera for contraception Social [...] nursing note reviewed. Exam conducted with a vp security present. Vitals: Estimated body mass index is [...] or undercooked meat, and stay away from [facility]. Patient has been consulted regarding any [...] Karla Burns PA-C documented in this encounter [facility] 05-16-2024 History of Presen [...] Morbid obesity with BMI of 40.0-44.9, adult ([facility]) Negative test On Depo-Provera for contraception Family [...] or undercooked meat, and stay away from [facility]. Patient has also been advised to [...] Shannan Peña LPN documented in this encounter [facility] Evaluation note Diagnosis 13 weeks gestation [...] tolerance test documented in this [facility] Diagnosis 29 weeks gestation of Third trimester state, incidental Excessive growth affecting management of , antepartum, single or unspecified fetus documented in this encounter [facility] Summary Purpose Family History No Family History Records FoundNo Family History Records FoundNo Family History Records Found Advance Directives No Advanced Directives Records FoundNo Advanced Directives Records FoundNo Advanced Directives Records Found Additional Source Comments INFORMATION SOURCE (unrecogn ized section and content) DATE CREATED AUTHOR 04/05/2022 Shawanda Lyle [facility] DATE CREATED AUTHOR AUTHOR'S ORGANIZ ATION 04/08/2022 [facility] DATE CREATED AUTHOR AUTHOR'S ORGANIZ ATION 10/11/2024 [facility] Care Teams (unrecognized sec tion and content) Sales Training Manager Relationship Specialty Start Date End Date Karla Ortega MD [address] [place] [address] PCP - General Family Medicine 01/24/23 Sales Training Manager Relationship Specialty Start Date End Date Karla Ortega MD [address] [place] [address] PCP - General Family Medicine 01/24/23 Sales Training Manager Relationship Specialty Start Date End Date Karla Ortega MD [address] [place] [address] PCP - General Family Medicine 01/24/23 Sales Training Manager Relationship Specialty Start Date End Date Karla Ortega MD [address] [place] [address] PCP - General Family Medicine 01/24/23 Sales Training Manager Relationship Specialty Start Date End Date Karla Ortega MD [address] [place] [address] PCP - General Family Medicine 01/24/23 Sales Training Manager Relationship Specialty Start Date End Date Karla Ortega MD [address] [place], [id number] PCP - General Family Medicine 01/24/23 Sales Training Manager Relationship Specialty Start Date End Date Karla Ortega MD [address] [place] [address] PCP - General Family Medicine 01/24/23 Sales Training Manager Relationship Specialty Start Date End Date Karla Ortega MD [address] [place] [phone] PCP - General Family Medicine 01/24/23 Sales Training Manager Relationship Specialty Start Date End Date Karla Ortega MD [address] [place] [phone] PCP - General Family Medicine 01/24/23 Sales Training Manager Relationship Specialty Start Date End Date Karla Ortega MD [address] [place] [phone] PCP - General Family Medicine 01/24/23 Reason [...] BE BASED ON THE PRIMARY CLINICAL RECORDS. [employer] provides no warranty or guarantee of the accuracy or completeness of information in this document.
--- NOTE | 2024-10-16 13:56 | US_ITS ---
[address] [address] Patient Name: KAREEN FORMAN MRN: [id number] date: 1995 Sex: F Assigned Patient Location: US Current Patient Location: Accession/Order Number: [id number] Exam Date: 10/16/2024 13:57 Report Date: 10/16/2024 15:41 At the request of: CARRIE ARREDONDO Procedure: US OB BPP w non-stress EXAMINATION: US OB BPP w non-stress HISTORY:Excessive Growth O36.60X0 COMPARISON: Ultrasound OB anatomy 08/07/2024 TECHNIQUE: Ultrasound biophysical profile was performed in the radiology department. BREATHING MOVEMENTS: 2 GROSS BODY MOVEMENTS: 2 TONE: 2 QUALITATIVE AMNIOTIC FLUID VOLUME: 2 PRESENTATION: CEPHALIC HEART RATE: 127.36 bpm AMNIOTIC FLUID VOLUME: 12.27 cm GESTATIONAL AGE: 30 weeks 6 days US/US OB BPP w non-stress IMPRESSION: 1. Total biophysical profile score: 8 Electronically authenticated by: TEREZA FREITAS Date: 10/16/2024 15:41
[2024-10-16 14:40] VITALS: BP 111/73; PULSE 109
== END 2024-10-16 15:05 | disposition home or self-care (01) ==
LOC: US 02:58 → FBC 14:28
PROVIDERS: Visit Provider Obstetrics & Gynecology
DX: O36.63X0 Maternal care for excessive fetal growth, third trimester, not applicable or unspecified (principal); Z3A.30 30 weeks gestation of pregnancy
CPT/HCPCS: 76818

== ENCOUNTER 2024-10-20 01:08 | Outpatient (OUT) | payer BC, SELFPAY ==
--- OUTSIDE RECORDS SUMMARY | 2024-10-20 01:13 | XMS_ITS | CCD ---
Author Organization [facility] Care Team Providers Care Television Analyzer Name Role Phone DR CARRIE PAYAN Primary Care Unavailable ANGÉLICA NARAYANAN Attending Unavailable ANGÉLICA NARAYANAN Consulting Unavailable ANGÉLICA NARAYANAN Admitting Unavailable MARQUIS HENSON Consulting Unavailable DR CARRIE PAYAN Consulting Unavailable DR CARRIE PAYAN Primary Care Unavailable DR CARRIE PAYAN Admitting Unavailable ORA, DR BUTLER Attending Unavailable Karla Ortega MD Primary Care Provider [phone] CARRIE PAYAN Attending Unavailable CARRIE PAYAN Attending Unavailable KARLA BURNS Attending Unavailable CARRIE PAYAN Attending Unavailable CARRIE PAYAN Attending Unavailable CARRIE PAYAN Attending Unavailable KARLA BURNS Attending Unavailable Medications Current Medications Medication Drug Class(es) Dates Sig (Normalized) Sig (Original) aspirin 81 mg delayed release oral tablet (6 sources) Platelet Aggregation Inhibitor, Nonsteroidal Anti-inflammatory Drug Start: 09-25-2024 End: 09-25-2025 take 1 tablet by mouth once daily aspirin 81 MG EC tablet Indications: Second trimester , 27 weeks gestation of Take 1 tablet (81 mg) by mouth Daily 30 tablet 6 09/25/2024 09/25/2025 Active azithromycin 250 mg oral tablet (3 sources) Macrolide Antimicrobial Start: 10-09-2024 azithromycin (Zithromax [...] Value Interpretation Reference Range Facility US OB BPP W NON-STRESS on 10-16-2024 [place] [address] Ultrasound Report Signed Patient: KAREEN FORMAN MR#: [id number] : 1995 Acct:[id number] Age/Sex: 29 / F ADM Date: 10/16/24 Loc: US Attending Dr: Carrie Payan D.O. Ordering Physician: Carrie Payan D.O. Date of Service: 10/16/24 Procedure(s): US OB BPP w non-stress Accession Number(s): [id number] cc: KARLA ORTEGA; Carrie Payan D.O. The [address] [address] Patient Name: KAREEN FORMAN MRN: [id number] date: 1995 Sex: F Assigned Patient Location: US Current Patient Location: Accession/Order Number: [id number] Exam Date: 10/16/2024 13:57 Report Date: 10/16/2024 15:41 At the request of: CARRIE PAYAN Procedure: US OB BPP w non-stress EXAMINATION: US OB BPP w non-stress HISTORY:Excessive Growth O36.60X0 COMPARISON: Ultrasound OB anatomy 08/07/2024 TECHNIQUE: Ultrasound biophysical profile was performed in the radiology department. BREATHING MOVEMENTS: 2 GROSS BODY MOVEMENTS: 2 TONE: 2 QUALITATIVE AMNIOTIC FLUID VOLUME: 2 PRESENTATION: CEPHALIC HEART RATE: 127.36 bpm AMNIOTIC FLUID VOLUME: 12.27 cm GESTATIONAL AGE: 30 weeks 6 days US/US OB BPP w non-stress IMPRESSION: 1. Total biophysical profile score: 8 Electronically authenticated by: RIK LEOS Date: 10/16/2024 15:41 Dictated By: Rik Leos M.D. Signed By: 10/16/24 1544 DD/ 1541 TD/TT: Roller Mill Operator: [facility] Radiology, Radiologist, MD - 10/16/2024 [place] [address] Ultrasound Report Signed Patient: KAREEN FORMAN MR#: [id number] : 1995 Acct:[id number] Age/Sex: 29 / F ADM Date: 10/16/24 Loc: US Attending Dr: Carrie Payan D.O. Ordering Physician: Carrie Payan D.O. Date of Service: 10/16/24 Procedure(s): US OB BPP w non-stress Accession Number(s): [id number] cc: KARLA ORTEGA; Carrie Payan D.O. The [place] [address] Patient Name: KAREEN FORMAN MRN: [facility]:[id number] date: 1995 Sex: F Assigned Patient Location: US Current Patient Location: Accession/Order Number: [id number] Exam Date: 10/16/2024 13:57 Report Date: 10/16/2024 15:41 At the request of: CARRIE PAYAN Procedure: US OB BPP w non-stress EXAMINATION: US OB BPP w non-stress HISTORY:Excessive Growth O36.60X0 COMPARISON: Ultrasound OB anatomy 08/07/2024 TECHNIQUE: Ultrasound biophysical profile was performed in the radiology department. BREATHING MOVEMENTS: 2 GROSS BODY MOVEMENTS: 2 TONE: 2 QUALITATIVE AMNIOTIC FLUID VOLUME: 2 PRESENTATION: CEPHALIC HEART RATE: 127.36 bpm AMNIOTIC FLUID VOLUME: 12.27 cm GESTATIONAL AGE: 30 weeks 6 days US/US OB BPP w non-stress IMPRESSION: 1. Total biophysical profile score: 8 Electronically authenticated by: RIK LEOS Date: 10/16/2024 15:41 Dictated By: Rik Leos M.D. Signed By: 10/16/24 1544 DD/ 40 TD/TT: [employer] Operator: [facility] Radiology Study observation (narrative) [facility] NakedRoom OB BPP W NON-STRESS Ordered By: Radiologist Radiology on 10-16-2024 [facility]ITALMemor[facility] e Work Phone: US OB FOLLOW UP TRANSABDOMIN AL APPROACHon [...] II, MD, PHD at 10-Oct-2024 07:43:20 AM [facility] Normal Not Available Comment on above: Order Comment: US OB SCAN FOR GROWTH Estimated Date of Delivery: 12/19/24 Gestational Age as of 09/25/2024: 27w6d Urinalysis macro (dipstick) panel (U)on 10-09-2024 Bilirubin, UA Negative Negative - 4(70) +++ mg/dL [facility] Blood, UA Negative Negative - 50 Roberto/mcL [facility] Clarity, UA Clear [facility] Color, UA Yellow [facility] Glucose, UA Positive Negative - 2000(110) ++++ mg/dL [facility] Comment on above: 100 Interpretation and review of laboratory results Abnormal [facility] Ketones, UA Positive Negative - 160(16) ++++ mg/dL [facility] Comment on above: 15 Leukocytes, UA Negative Negative - 500+++ Christian/mcL [facility] Nitrite, UA Negative Negative - Positive [facility] pH, UA 7 5 - 9 [facility] e Protein, UA Trace Negative - 1999(20) ++++ mg/dL [facility] Spec Grav, UA 1.025 1 - 1.03 [facility] Urobilinogen, UA 0.2 0.2 - 12 mg/dL [facility] GLUCOSE TOLERANCE 3 HOURon 0 10-07-2024 GLUCOSE TOLERANCE 3 HOUR mg/dL [facility] Comment on above: GLU FAST 83 (<95) Co l: 10/07/24 0909 GLU 1HR 163 (<180) Col: 10/07/24 1012 GLU 2HR 146 (<155) Col: 10/07/24 1112 GLU 3HR 83 (<140) Col: 10/07/24 1212 [facility] Urinalysis macro (dipstick) panel (U)on 09-25-2024 Bilirubin, UA Negative Negative - 4(70) +++ mg/dL [facility] Blood, UA Negative Negative - 50 Roberto/mcL [facility] Clarity, UA Clear [facility] Color, UA Yellow [facility] Glucose, UA Negative Negative - 1999(110) ++++ mg/dL [facility] Interpretation and review of laboratory results Abnormal [facility] Ketones, UA Negative Negative - 160(16) ++++ mg/dL [facility] Leukocytes, UA Positive Negative - 500+++ Christian/mcL [facility] Healthcare Comment on above: small Nitrite, UA Negative Negative - Positive [facility] pH, UA 8.5 5 - 9 [facility] Protein, UA Negative Negative - 1999(20) ++++ mg/dL [facility] Spec Grav, UA 1.02 1 - 1.03 [facility] Urobilinogen, UA 1.0 0.2 - 12 mg/dL [facility] Urinalysis macro (dipstick) panel (U)on 2024 Bilirubin, UA Negative Negative - 4(70) +++ mg/dL [facility] Blood, UA Negative Negative - 50 Roberto/mcL [facility] Healthcare Clarity, UA Clear [facility] re Color, UA Yellow [facility] Glucose, UA Negative Negative - 1999(110) ++++ mg/dL [facility] Interpretation and review of laboratory results Abnormal [facility] Ketones, UA Negative Negative - 160(16) ++++ mg/dL [facility] Leukocytes, UA Moderate Negative - 500+++ Christian/mcL [facility] Nitrite, UA Positive Negative - Positive [facility] pH, UA 7 5 - 9 [facility] Protein, UA Positive Negative - 1999(20) ++++ mg/dL [facility] Comment on above: 100 Spec Grav, UA 1.02 1 - 1.03 [facility] Urobilinogen, UA 1.0 0.2 - 12 mg/dL [facility] Urinalysis macro (dipstick) panel (U)on 08-14-2024 Bilirubin, UA Negative Negative - 4(70) +++ mg/dL [facility] Blood, UA Negative Negative - 50 Roberto/mcL [facility] Healthcare Clarity, UA Clear [facility] re Color, UA Yellow [facility] Glucose, UA Negative Negative - 1999(110) ++++ mg/dL [facility] Interpretation and review of laboratory results Abnormal [facility] Ketones, UA Negative Negative - 160(16) ++++ mg/dL [facility] Leukocytes, UA Negative Negative - 500+++ Christian/mcL [facility] Nitrite, UA Negative Negative - Positive [facility] pH, UA 5.5 5 - 9 [facility] Protein, UA Negative Negative - 2000(20) ++++ mg/dL [facility] Spec Grav, UA 1.02 1 - 1.03 [facility] Urobilinogen, UA 1.0 0.2 - 12 mg/dL [facility] ALL CBC WITH AUTO DIFFon BASOPHILS ABSOLUTE AUTO 0 [facility] Basophils/100 WBC (Bld) 0.3 % 0.2 - 2.0 % [facility] Eosinophils/100 WBC (Bld) 0.9 % 0.9 - 7.0 % [facility] Erythrocyte distribution width (RBC) [Ratio] 14.8 % 11.0 - 15.0 % [facility] Hematocrit (Bld) [Volume fraction] 36.3 % 36.0 - 48.0 % [facility] Hemoglobin (Bld) [Mass/Vol] 11.9 g/dL Low 12.0 - 16.0 g/dL [facility] IMMATURE GRANULOCYTES ABS AUTO 0.04 High [facility] Immature granulocytes/100 WBC (Bld) 0.4 % 0.0 - 0.5 % [facility] Interpretation and review of laboratory results Abnormal [facility] LYMPHOCYTES ABSOLUTE AUTO 1.6 [facility] Lymphocytes/100 WBC (Bld) 15 % Low 20.5 - 60.0 % [facility] MCH (RBC) [Entitic mass] 27.2 pg 26.7 - 34.0 pg [facility] MCHC (RBC) [Mass/Vol] 32.8 g/dL 29.9 - 35.2 g/dL [facility] MCV (RBC) [Entitic vol] 83.1 fL 81.0 - 99.0 fL [facility] MONOCYTES ABSOLUTE AUTO 0.8 [facility] Monocytes/100 WBC (Bld) 7.4 % 1.7 - 12.0 % [facility] NEUTROPHILS ABSOLUTE AUTO 7.8 High [facility] Neutrophils/100 WBC (Bld) 76 % High 43.0 - 75.0 % [facility] Platelet mean volume (Bld) [Entitic vol] 9.2 fL Low 9.5 - 13.5 fL [facility] EO # 0.1 [facility] PLT 322 [facility] RBC 4.37 [facility] WBC 10.3 [facility] GLUCOSE 1 HOURon 07-30-2024 Glucose [Mass/Vol] 173 mg/dL High NINF - 13 0 mg/dL [facility] Interpretation and review of laboratory results Abnormal [facility] e RECURRENT VAGINITIS (HTRX)on 07-18-2024 ATOPOBIUM VAGINAE 21.066 [facility]normal [facility] ATOPOBIUM VAGINAE Detected Abnormal [facility]thcare BVAB 2,3 (BACTERIAL VAGINOSIS ASSOCIATED BACTERIA 2, 3); MOBILUNCUS SPP 20.228 Abnormal [facility] BVAB 2,3 (BACTERIAL VAGINOSIS ASSOCIATED BACTERIA 2, 3); MOBILUNCUS SPP Detected Abnormal [facility] BLANCA ALBICANS, PARAPSILOSIS, TROPICALIS 0 [facility] BLANCA ALBICANS, PARAPSILOSIS, TROPICALIS Not detected [facility] BLANCA GLABRATA 0 [facility] Hea lthcare BLANCA GLABRATA Not detected [facility] ealthcare BLANCA KRUSEI 0 [facility] Healt hcare BLANCA KRUSEI Not detected [facility] CHLAMYDIA TRACHOMATIS 0 [facility] CHLAMYDIA TRACHOMATIS Not detected [facility] ERMB, C; MEFA 26.225 Abnormal [facility] care ERMB, C; MEFA Detected Abnormal [facility] care GARDNERELLA VAGINALIS 21.744 Abnormal [facility] GARDNERELLA VAGINALIS Detected Abnormal [facility] Interpretation and review of laboratory results Abnormal [facility] MEGASPHAERA (TYPES 1, 2) 0 [facility] MEGASPHAERA (TYPES 1, 2) Not detected [facility] MYCOPLASMA GENITALIUM 0 [facility] MYCOPLASMA GENITALIUM Not detected [facility] NEISSERIA GONORRHOEAE 0 [facility] NEISSERIA GONORRHOEAE Not detected [facility] TET B, TET M 24.757 Abnormal [facility] are TET B, TET M Detected Abnormal [facility] are TRICHOMONAS VAGINALIS 0 [facility] TRICHOMONAS VAGINALIS Not detected [facility] Urinalysis macro (dipstick) panel (U)on 07-17-2024 Bilirubin, UA Negative Negative - 4(70) +++ mg/dL [facility] Blood, UA Negative Negative - 50 Roberto/mcL [facility] Healthcare Clarity, UA Clear [facility] Healthca re Color, UA Yellow [facility] Glucose, UA Negative Negative - 1999(110) ++++ mg/dL [facility] Interpretation and review of laboratory results Abnormal [facility] Ketones, UA Positive Negative - 160(16) ++++ mg/dL [facility] Leukocytes, UA Trace Negative - 500+++ Christian/mcL [facility] Nitrite, UA Negative Negative - Positive [facility] pH, UA 5.5 5 - 9 [facility] Protein, UA Trace Negative - 1999(20) ++++ mg/dL [facility] Spec Grav, UA 1.03 1 - 1.03 [facility] Urobilinogen, UA 0.2 0.2 - 12 mg/dL [facility] Urinalysis macro (dipstick) panel (U)on 06-17-2024 Bilirubin, UA Negative Negative - 4(70) +++ mg/dL [facility] Blood, UA Negative Negative - 50 Roberto/mcL [facility] Clarity, UA Clear [facility] re Color, UA Yellow [facility] Glucose, UA Negative Negative - 1999(110) ++++ mg/dL [facility] Interpretation and review of laboratory results Abnormal [facility] Ketones, UA Negative Negative - 160(16) ++++ mg/dL [facility] Leukocytes, UA Negative Negative - 500+++ Christian/mcL [facility] Nitrite, UA Negative Negative - Positive [facility] pH, UA 6 5 - 9 [facility] Protein, UA Positive Negative - 1999(20) ++++ mg/dL [facility] Comment on above: 100 Spec Grav, UA 1.03 1 - 1.03 [facility] Urobilinogen, UA 0.2 0.2 - 12 mg/dL [facility] ALL CBC WITH AUTO DIFFon BASOPHILS ABSOLUTE AUTO 0.0 [facility] Basophils/100 WBC (Bld) 0.4 % 0.2 - 2.0 % [facility] Eosinophils/100 WBC (Bld) 1.1 % 0.9 - 7.0 % [facility] Erythrocyte distribution width (RBC) [Ratio] 14.2 % 11.0 - 15.0 % [facility] Hematocrit (Bld) [Volume fraction] 39.3 % 36.0 - 48.0 % [facility] Hemoglobin (Bld) [Mass/Vol] 12.8 g/dL 12.0 - 16.0 g/dL [facility] IMMATURE GRANULOCYTES ABS AUTO 0.02 [facility] Immature granulocytes/100 WBC (Bld) 0.3 % 0.0 - 0.5 % [facility] Interpretation and review of laboratory results Abnormal [facility] LYMPHOCYTES ABSOLUTE AUTO 1.6 [facility] Lymphocytes/100 WBC (Bld) 21.5 % 20.5 - 60.0 % [facility] MCH (RBC) [Entitic mass] 26.8 pg 26.7 - 34.0 pg [facility] MCHC (RBC) [Mass/Vol] 32.6 g/dL 29.9 - 35.2 g/dL [facility] MCV (RBC) [Entitic vol] 82.2 fL 81.0 - 99.0 fL [facility] MONOCYTES ABSOLUTE AUTO 0.4 [facility] Monocytes/100 WBC (Bld) 5.1 % 1.7 - 12.0 % [facility] NEUTROPHILS ABSOLUTE AUTO 5.3 [facility] Neutrophils/100 WBC (Bld) 71.6 % 43.0 - 75.0 % [facility] Platelet mean volume (Bld) [Entitic vol] 9.2 fL Low 9.5 - 13.5 fL [facility] Healthc are [facility] EO # 0.1 [facility] TB PLT 324 [facility] TB RBC 4.78 [facility] TB WBC 7.4 [facility] HCG ( test) Ql (U)o n 05-16-2024 Interpretation and review of laboratory results Abnormal [facility] Preg Test, Ur Positive [facility] Health care [facility] Cytology Cervical or vaginal smear or scraping studyOrdered By: Sheila Flowers on 04-07-2024 [facility] Coding Summary.on 04-07-2022 Coding Summary. [id number] G h0bWw+PGhlYWQ+YZ7OVLZ jC69rpBGsvF4ZM0kGLV5P NRBANOUTHV2QFJ4tgRP3K QznX8UvtcTw LacjrENpCX22OGb2VOI3i RqcFBxzcK1pbPXbF6f9Oz XwEH46dQ78HCeyOTOyBrU 3LjZpbjsgbWFy X4xrGpPckIJzHvd+PHRhY mxlIHdpZHRoPScxMDAlJy KwiCfuZL8yJq2eLWFfLXX vbGxhcHNlOiBj u9khMJFzFJkyCS3bqMimE 9LbeRW7QRHtq9e8Ea23qX I+FKGfDQF8kVryLIbkx63 7EtTeg8oyMYF8 tETrJKymTCK0U64gq1U1B PBpBHVzCSM4mTM2wJ8zqP ytuiuiO7AafKMvNhR0HFX 4lYQsoI0hzClx irabyX9iDnf+Z10HGQ9FM RQMJD5CZln4Q8XmIhbvyM I+AP52OZYxOH20uRGkbJQ ig5eykEy2JqVo QMFxTCL1qCvlKMgsb5QjD KXzY16rdVGrc6X5RZWjiX yuyVTuXyHjnZV2vR0qEZd txneqx2natdzp Rrrlv9uvep93qU89I86uZ WzbATIqELA5ZECwMLGnyZ oqtd0vpN2sHm3+KRdts5e ez1uetHj5NbQj RSSctgHgnAgdOOW0d1BrY z54H9EycKorv4VrUrt7mf 13tUMzp9C7pHQ0KHjhNBV caK7uOYhsUkP5 PSHiHaSfvA95iKZfVNnlQ w2vlVehrVoqIA3rGKCrqt nbXBUgbM8aLALrlHVflBn hOX6sSIEiwubx n400FwXsRQI6FJGbrJVtQ 6ZxnO1fTrOzSFUqOMJgG1 XcmBOcPWqiP374QPrkVyJ 0RANwzeDbP1Du OEVecGjjEtF8u7K4Mf6Ng 3UvujedIJB8UXufOZP2Md N1DePcPhB4B1YvOmc8ZID phGblJV9fQ6Gn FCGzttchzspmtXI4OKCoH WSulA92aFSrSXvbTt8yz3 M0e756CCSfVVNdrU76Ys2 udDogMTBwdCBU rG5dgyzzs5twqkucCoUuE RShAJx2BGl2QDOdyUhlLb PqZSN9QsX1NQK2sLGpxW5 gyKyjbabarN2h Oyc+Q49ykC7fWVN4TFH5w lhtPRYibvRpSR46XP52E9 RyPjwvdGFibGU+PGRpdiB wrYedQF8eDpMp c1pdw6JbFAqvZ2NoMYLeK TeeSlj2PUMoKYT3pRP2iP 6mUWKqQLqqw7Q7wTB8T5N lumVmep6nx7oe WRWsMSmlQ21daYMdt2W6Y WInwWL0ADEzuObjIgMqtO 93Oyc+FLJgnOhmu3UfZjr km8qoa5jzuUk8 RcLqQINpgmUhbAgpGKS7r 8ZxLz03Y79xULusWBBuAA PbKHJvOFKubYqywy9ljU3 wIi8+PGNvbCB3 lNB0gX7qCOVqEgX8MQyqC 939JpYswQVnFvwxm0myw1 bsaQv5FbBgRNKdhjUxwXh dLWC8l4NoEy49 Q91kXWcoWTCsGLKtGGEhY KJzaCcjgv3ijB3gCe3+PC 0ec5lenr42yV92xPT+PHR zVGD6cFtsUJaz UCKgsM2nCNydPxE0SJYzG nDbrQ03jXNsBIfuHw2taB agkTeoGW0cDFEgjlwlr26 3VjXvm2kyWEJz iETbUMomLQS5S46kg7L0A IUhEACwYSO8jZX5uU5hjS lnbjogbGVmdDsgdmVydGl aWCejHUtlL429 IHRvcDsnPlBhdGllbnQgT bGvXJp9H2IzKho2JLIejP klVU5onQGkKQtaZd8xxHe lyOruKX9eTKBu naljy793GvSew1guCQQcx PThBXrzUKP9J78te0X4OP UtCTEpKDC2nXL1qE6elPy nbjogbGVmdDsg jcCkxQazPEheHVatM123G HRvcDsnPkJpcnRoIERhdG U6EA38OD40xHNgc7D2lYJ 5H8JsDAOtkrgz thjzqSF7WZLoSUKlzJ02A l8cnGvqLg6nYKGoWTV7PH AxuELgU0PeeH3aOeLtBCP bPXOeW4AogHYv PIdbK544ZZycClW9WMZfa vPrZ9CsFBXagUudKkQ1r6 K7Ui5HC8T7JX92FW24zNE xi9I0jUY1F5Er YQWperigozhfmBH8MIMkN UQmeB71Js0keQohTb0fLE EgFJY6PNXsdWSkK1JkrL8 yOiAjMDAwMDAw S9IjsBFcMPgfX660HThtE xV0KKOhamTfE3ZtTFIypX zxUxH1a3P3Uy9PHFr2AU6 7FJ92xYIei4P5 fCN6H9LlVOUinkvrchagk CR2OMPdNDInoE62Za1llI yxXl1jGVJxFAI1KUPenCY nP9OevV9oXeOd IQHzENVaB0IzdFHpTEpcV 790TMczVdX6CVVkehHjQ5 RrNGSosJitSzZ8h6A4Ck3 XPJGnZO25QEZ4 fKC5CY44TB64W1VcVksgc GFibGU+PHRhYmxlIHdpZH RoPScxMDAlJyBzdHlsZT0 rDo8sRKXqIDYn sVuauXRyZqIos6xsQEChA CmfBO8tfKdrD2QieDR4PG Iuw8l0Jy14H53yC1AajTR +ZVSliQZ0wPJ8 eY9oGyAzJbJ2JUxnR512Q tUehSWeSgdfq0nnb6eqmE u9UiJ4VKGfjmYhhKpaIZQ 4k0CdKm48Z40l IHdpZHRoPSIxNSUiIHZhb Oiqje9xcM3cHs7+PGNvbC P0gWR5eF9pVvLzGpY8MZk mB650HuVraIEg Zekmc4lmd2jdhYy1QzTdJ DXfhsLjpSroGFW2u1HrKq 27T8QaoEziw8MwKle1gx3 9pLZpj7Q6sIL0 Y0WhEISfxwujpVPgtRfaR W7cVRXdwbtcKYDzqB0lJA KuR9n8NpSpPfA2IKpuH7K psuK7YPQxpHSy WHjdDSC6Q34ow1X2YVEiY RUnSKF6gWC0bA3zcRnspn ogbGVmdDsgdmVydGljYWw nHVhuR929TKZu jUclQNAfxZ4qQSXniQHsk TqwJK8cXPMrphruKtWEMF BQLCBIQUxFWSBOSUNPTEU 7Y0YvUrn7VPLv xPugGB0gdUZrCAreZv2ui VpynQwtSP9hVDNwuxqrTW MlcU4oXBBkfHHtmTmzRK3 yWJNzhaynp640 RlAvTKB4VLHwfPTpM0Vip D2kKeYtDBSpSBKpZ2AagM CeMPxeR650OIdyNbP0UQF fiwOtP6HoGFUa uNkiZlQ8j7T8Iu2yDN7eF G8rREd3JI44EY62sCYqi4 A4iYS6B7VkXEVafckmmze meGI3RHYtMOCd eR87tZBeMNijLj4vu0J9a 336JMJcISGrdG32Jh4afW zuYBZwuPCXyW2zgseai7o vcjogIzAwMDAw OKi6IMa4VYIonDbaJhYaF BG0TrS5OEV5yWZwvG7myW alnzsnfR7xKog+MjQgWWV xrxQ6P9KjBrl0 JPLqbCncLC3foJGuLCtmQ d5vgSyvoGlzUD7pOZFckn mhYPSznW8rGBVqaDJnnCz oMC5xRYWvdwjo p275VkScYIE8MECxcELrN 0WdoB7uJgZkOTIhUHLdI6 OyxFIfZGdzT942BBgdQcE 8YVMuzhXlB8In TUZfoSszUwM3q4F7Hr0XF C5qcRF6Q5DjHfp2TATxoJ uyMO9sxOYnDThnOm6rtBw peDhcJH5uFWQm qgfuKTDvgK1lBNHxjXGgy UufUB3sOZPztitcg946Vx BuDOK1WOQriMLfF3GwcT1 yOiAjMDAwMDAw U2IhtSCnBMnhN736EOqsY dQ1JHZyupYfO1UiBVNepM mwPrH6z4X2Lk9DjOFaLNF yCX55UQ14TT08 A7WfJpzcvJThuAY+PHRhY mxlIHdpZHRoPScxMDAlJy OceMsaAH3wUh8dYZMnFFG vbGxhcHNlOiBj b5gdOXGlKVdkYY9ckLutX 9VarDK6WUIou9t6Rt11D2 4rL4JyiJL+ZMZfzTQ5wJR 2iJ3xTbSuVzC9 TZnsK202CgUuhNHyOoigy 5gos1ezuNe0IpKuKDRuqa OgcOepDLZ7n7VcOl12E63 sIHdpZHRoPSIy VKYuBUCtsKihff9veN4zB i8+XGSxkDU8dYG6iF9tAi MzVrW0SUkwT959AeUezUU zKabaU97rM2Af dXA+GDMjJio1IFZkaHzwD P1fnGVmWWtxSe5jRBZ0Xq JtSfFbMWssE2LsMZUdcpv sevupoDJ6CKCb ZSJvhZ06Ss9gdVwzPa7qG HSqBHR8ZMFvjKSgK6IkeS 0aBnZjJHReXMWkF5HswYS gBLwhT207ZEhf MbS3FHJqaiXsB7SnWUWut IduBlL8j6Y4Oi9PiMaspI VvOO3tHxBjFMy2I6LjVsz 0DONvkWsdSW8k iUYlQFodLd1ugYtmsOscL H9lUEXkfbeeq078NlPtd4 jeRVQmpXZeSQemAQR4S16 eq6T0DTXgRDAp VMF4eNI5tP1ysGjieynxd GVmdDsgdmVydGljYWwtYW heO647NCFqmFihBpJGDwe 8N5HyEep7NIBs hBxuBC5xmWLlAPoeAw0tg QkinZyfUF3gZXIqdzrtx3 89YoAwu9gbUCWvrJAgXOj bPCV5N46hb0M2 AZGtPAAeSJF8lNV4gO7lj GlnbjogbGVmdDsgdmVydG zrYVqbZPquY394EDGbkOo aXu9EXaw5W2Vk Qui3DUDifVssHV3zfXXkN GaiHo1ngPkweFjdPE0oSR Lydggoc685ShMym2edNBP wcHQgVGltZXM7 P17fu5L9OJXzSZZeGTR0o XK8dJ4wuTinrxtffTSzgU swbyIgyUpuSIkxXBurX67 6IHRvcDsnPlBh eWVyOjwvdGQ+BA77qo87A 1LnMvhyCuk9NIUcPJK3uS S9cI9iJFOaAZbhy0T0xQP 0P4DxmsAcfp8g b2xs (more content not included)... Normal [facility] XR Ankle 3+ Views Lefton XR Ankle [...] Howell M.D. Transcribed by: JENN Technologist: STEVEN [facility] Consent for Treatmenton Consent for Treatment [id number] .00CD:127 [facility] Physician Orderon 04-03-2022 Physician Order [id number]# 1.00CD:127 Normal [facility] XR ANKLE LT MIN 3 Von 2021 XR ANKLE LT MIN 3 V EXAM: XR ANKLE LT GA N 3 V, XR FOOT LT MIN [...] authenticated by: MARQUIS HENSON Date: 2022-03-11 16:04 [facility] PAP ACOG PANEL 2: 23 to 29on 10-24-2021 . . Normal [facility] Comment on above: Performed By: #### [id number] #### [facility] [address] [place] [address] Dr. Aura Griffiths Age Gdln ACOG Testing 23- Normal [facility] Comment on above: Performed By: #### [id number] #### [facility] [address] [address] [address] Aura Griffiths DIAGNOSIS: Comment Normal [facility] Comment on above: Result Comment: NEGA TIVE FOR INTRAEPITHELIAL LESION OR MALIGNANCY. Performed By: #### [id number] #### [facility] [address] [place] [address] Dr. Aura Griffiths Methodology: Comment Normal [facility] Comment on above: Result Comment: This liquid based ThinPrep(R) pap test was screened with the use of an image guided system. Performed By: #### [id number] #### [facility] [address] [place] [address] Dr. Aura Griffiths Note: Comment Normal [facility] Comment on above: Result Comment: The Pap smear is a screening test designed to aid in the detection of premalignant and malignant conditions of the uterine cervix. It is not a diagnostic procedure and should not be used as the sole means of detecting cervical cancer. Both false-positive and false-negative reports do occur. . Performed By: #### [id number] #### [facility] [address] [place] [address] Dr. Aura Griffiths Performed by: Comment Normal [facility] Comment on above: Result Comment: Radha Trevino, Assistant Housekeeping Manager (ASCP) Performed By: #### [id number] #### [facility] [address] [place] [address] Dr. Aura Griffiths Reflex Criteria: Comment Normal [facility] Comment on above: Result Comment: The HPV DNA reflex criteria were not met with this specimen result therefore, no HPV testing was performed. . Performed By: #### [id number] #### [facility] [address] [place] [address] Dr. Aura Griffiths Specimen adequacy: Comment Normal [facility] Comment on above: Result Comment: Sati sfactory for evaluation. Endocervical and/or squamous metaplastic cells (endocervical component) are present. Performed By: #### [id number] #### [facility] [address] [place] [address] Dr. Aura Griffiths Vital Signs Date Time Vital Sign Value Performing Clinician Aleksandr dobbs 10-09-2024 10:43-0500 Body mass index (BMI) [Ratio] 46.17 kg/m2 Carrie Ora DO Work Phone: [facility] 10-09-2024 10:43-0500 Body weight 122.02 kg Carrie Ora DO Work Phone: [facility] 10-09-2024 10:43-0500 Diastolic blood pressure 70 mm[Hg] Carrie Ora DO Work Phone: [facility] 10-09-2024 10:43-0500 Systolic blood pressure 120 mm[Hg] Carrie Ora DO Work Phone: [facility] 09-25-2024 08:58-0500 Body mass index (BMI) [Ratio] 45.49 kg/m2 Carrie Ora DO Work Phone: [facility] 09-25-2024 08:58-0500 Body weight 120.2 kg Carrie Ora DO Work Phone: [facility] 09-25-2024 08:58-0500 Diastolic blood pressure 72 mm[Hg] Carrie Ora DO Work Phone: [facility] 09-25-2024 08:58-0500 Systolic blood pressure 122 mm[Hg] Carrie Ora DO Work Phone: [facility] 2024 09:48-0500 Body mass index (BMI) [Ratio] 44.97 kg/m2 Karla OSPINA Work Phone: [facility] 2024 09:48-0500 Body weight 118.84 kg Karla OSPINA Work Phone: [facility] 2024 09:48-0500 Diastolic blood pressure 70 mm[Hg] Karla OSPINA Work Phone: [facility] 2024 09:48-0500 Systolic blood pressure 120 mm[Hg] Karla OSPINA Work Phone: [facility] 08-14-2024 11:20-0500 Body mass index (BMI) [Ratio] 44.53 kg/m2 Carrie Ora DO Work Phone: [facility] 08-14-2024 11:20-0500 Body weight 117.66 kg Carrie Ora DO Work Phone: [facility] 08-14-2024 11:20-0500 Diastolic blood pressure 82 mm[Hg] Carrie Ora DO Work Phone: [facility] 08-14-2024 11:20-0500 Systolic blood pressure 124 mm[Hg] Carrie Ora DO Work Phone: [facility] 07-17-2024 10:48-0500 Body mass index (BMI) [Ratio] 45.28 kg/m2 Carrie Ora DO Work Phone: [facility] 07-17-2024 10:48-0500 Body weight 119.66 kg Carrie Ora DO Work Phone: [facility] 07-17-2024 10:48-0500 Diastolic blood pressure 70 mm[Hg] Carrie Ora DO Work Phone: [facility] 07-17-2024 10:48-0500 Systolic blood pressure 120 mm[Hg] Carrie Ora DO Work Phone: [facility] 06-17-2024 10:48-0400 Body mass index (BMI) [Ratio] 44.99 kg/m2 Carrie Ora DO Work Phone: [facility] 06-17-2024 10:48-0400 Body weight 118.9 kg Carrie Ora DO Work Phone: [facility] 06-17-2024 10:48-0400 Diastolic blood pressure 70 mm[Hg] Carrie Ora DO Work Phone: [facility] 06-17-2024 10:48-0400 Systolic blood pressure 120 mm[Hg] Carrie Ora DO Work Phone: [facility] 05-16-2024 09:16-0400 Body mass index (BMI) [Ratio] 46 kg/m2 [facility] 05-16-2024 09:160400 Body weight 121.56 kg [facility] 05-16-2024 09:16-0400 Diastolic blood pressure 70 mm[Hg] [facility] 05-16-2024 09:16-0400 Systolic blood pressure 120 mm[Hg] [facility] Encounters Encounter Date Encounter Type Care Provider Facility Start: 10-16-2024 End: 10-16-2024 Clinisync Result Encounter Carrie Ora DO Work Phone: [facility] Unsolicited Start: 10-16-2024 End: 10-16-2024 Clinisync Result Encounter Carrie Ora DO Work Phone: [facility] Unsolicited Start: 10-09-2024 End: 10-09-2024 flow sheet Carrie Ora DO Work Phone: [facility] Comment on above: 29 weeks [...] flow sheet Carrie Ora DO Work Phone: [facility] Comment on above: Second trimester pre gnancy; 27 weeks gestation of ; Elevated glucose tolerance test Start: 09-25-2024 End: 09-25-2024 ambulatory CARRIE ORA Not Available Start: 2024 End: 2024 Bamboo flowsheet Karla OSPINA Work Phone: [facility] Start: 2024 End: 2024 Bamboo flowsheet Karla Burns PA Work Phone: [facility] Start: 2024 End: 2024 flow sheet Karla OSPINA Work Phone: [facility] Comment on above: 25 weeks gestation o f ; Second trimester ; UTI symptoms Start: 2024 End: 2024 ambulatory KARLA BURNS Not Available Start: 08-14-2024 End: 08-14-2024 Bamboo flowsheet Carrie Ora DO Work Phone: [facility] Start: 08-14-2024 End: 08-14-2024 Bamboo flowsheet Carrie Ora DO Work Phone: [facility] Start: 08-14-2024 End: 08-14-2024 flow sheet Carrie Ora DO Work Phone: [facility] Comment on above: Second trimester pre gnancy; 21 weeks gestation of Start: 08-14-2024 End: 08-14-2024 ambulatory CARRIE ORA Not Available Start: 08-12-2024 End: 08-12-2024 Clinisync Result Encounter Carrie Ora DO Work Phone: [facility] External Department Unsolicited Start: 08-12-2024 End: 08-12-2024 Clinisync Result Encounter Carrie Ora DO Work Phone: [facility] External Department Unsolicited Start: 07-30-2024 End: 07-30-2024 [...] Date Procedure Procedure Detail Performing Clinician Start: 10-16-2024 OB BPP W NON-STRESS Carrie Ora DO Work Phone: Start: 10-09-2024 Urnls dip stick/tabl et rgnt [...] stick/tabl et rgnt non-auto w/o micrscp Carrie Stio DO Work Phone: Start: 06-17-2024 Urnls dip stick/tabl et rgnt non-auto w/o micrscp Carrie Ora DO Work Phone: Start: 05-30-2024 ALL CBC WITH AUTO DIFF [employer] DO Work Phone: Start: 05-16-2024 Urine test visual color cmprsn meths [employer] DO Work Phone: Start: 04-07-2024 Cytp cerv/vag auto t hin layer prep mnl screen [employer] Work Phone: Plan of Treatment Date Care Activity Detail Author Start: 10-23-2024 End: 10-23-2024 Patient encounter procedure 10/23/2024 10:50 AM EST Routine [facility] [address] [place] [address] Karla Burns PA [address] [place], [place] [id number] [facility] Start: 10-09-2024 End: 10-09-2025 US biophysical profile w non stress test US biophysical profile w non stress test Imaging Routine Excessive growth affecting management of , antepartum, single or unspecified fetus Expected: 10/09/2024 (Approximate), Expires: 10/09/2025 [facility] Work Phone: Comment on above: Expected: 10/09/2024 (Approximate), Expires: 10/09/2025 Start: 10-09-2024 End: 10-09-2025 US for US OB follow up transabdominal approach Imaging Routine Excessive growth affecting management of , antepartum, single or unspecified fetus Expected: 10/09/2024, Expires: 10/09/2025 [facility] Comment on above: Expected: 10/09/2024 , Expires: 10/09/2025 Start: 10-09-2024 End: 10-09-2024 Patient encounter procedure 10/09/2024 10:40 AM EST Routine [facility] [address] [place] [id number] Carrie Payan, DO [address] [place] [address] [facility] Start: 10-09-2024 End: 10-09-2024 Professional / ancillary services management 10/09/2024 10:00 AM EST Ancillary Procedure [facility] [address] [place] [phone] [facility] Start: 09-25-2024 End: 09-25-2025 Measurement of glucose 3 hours after glucose challenge for glucose tolerance test Glucose tolerance, 3 hours Lab Routine Elevated glucose tolerance test Expected: 09/25/2024 (Approximate), Expires: 09/25/2025 [facility] Comment on above: Expected: 09/25/2024 [...] EST Ancillary Procedure [facility] [address] [place] [address] [facility] Start: 07-17-2024 End: 09-16-2024 Alpha fetoprotein, maternal Alpha fetoprotein, maternal Lab Routine Second trimester Expected: 07/17/2024 (Approximate), Expires: 09/16/2024 [facility] Comment on above: Expected: 07/17/2024 (Approximate), [...] anatomic survey Expected: 07/17/2024 (Approximate), Expires: 07/17/2025 [facility] Comment on above: Expected: 07/17/2024 (Approximate), Expires: 07/17/2025 Start: 07-15-2024 End: 07-15-2024 Patient encounter procedure 07/15/2024 10:50 AM EST Routine [facility] [address] [place] [id number] Carrie Pyaan, DO [address] [place] [address] [facility] Start: 06-17-2024 End: 06-17-2024 Patient encounter procedure [facility] Comment on above: Arrived Start: 05-16-2024 End: 05-16-2025 ABO/Rh ABO/Rh Lab Routine Missed menses Expected: 05/16/2024 (Approximate), Expires: 05/16/2025 [facility] Comment on above: Expected: 05/16/2024 (Approximate), Expires: 05/16/2025 Start: 05-16-2024 End: 05-16-2025 Blood type and Indirect antibody screen panel - Blood Type and screen Lab Routine Missed menses Expected: 05/16/2024 (Approximate), Expires: 05/16/2025 [facility] Work Phone: Comment on above: Expected: 05/16/2024 (Approximate), Expires: 05/16/2025 Start: 05-16-2024 End: 05-16-2025 Drugs of abuse panel - Urine by Screen method Rapid drug screen, urine Lab Routine Encounter for supervision of normal first in first trimester , unspecified gestational age Expected: 05/16/2024 (Approximate), Expires: 05/16/2025 [facility] Comment on above: Expected: 05/16/2024 (Approximate), Expires: 05/16/2025 Start: 05-16-2024 End: 05-16-2025 US Pelvis transvaginal US OB transvaginal Imaging Routine Missed menses Expected: 05/16/2024 (Approximate), Expires: 05/16/2025 [facility] Comment on above: Expected: 05/16/2024 (Approximate), Expires: 05/16/2025 Bacteria identified in Urine by Culture Urine culture Microbiology Routine Missed menses Ordered: 05/16/2024 [facility] Comment on above: Ordered: 05/16/2024 Bacteria identified in Urine by Culture Urine culture Microbiology Routine UTI symptoms Ordered: 2024 [facility] Work Phone: Comment on above: Ordered: 2024 CBC W Auto Different ial panel - Blood CBC and differential Lab Routine Missed menses Ordered: 05/16/2024 [facility] Comment on above: Ordered: 05/16/2024 CHLAMYDIA TRACHOMATI S (GENITO/STI) CHLAMYDIA TRACHOMATIS (GENITO/STI) Lab Routine Exposure to STD Ordered: 07/17/2024 [facility] Comment on above: Ordered: 07/17/2024 Hemoglobin A1c/Hemoglobin.total in Blood Hemoglobin A1c Lab Routine Missed menses Ordered: 05/16/2024 [facility] Comment on above: Ordered: 05/16/2024 Hepatitis B virus surface Ag [Presence] in Serum or Plasma by Immunoassay Hepatitis B surface antigen Lab Routine Missed menses Ordered: 05/16/2024 [facility] Comment on above: Ordered: 05/16/2024 Hepatitis C virus Ab [Presence] in Serum or Plasma by Immunoassay Hepatitis C antibody Lab Routine Missed menses Ordered: 05/16/2024 [facility] Comment on above: Ordered: 05/16/2024 HIV-1/HIV-2 antigen/antibody combination immunoassay HIV-1 and HIV-2 antibodies Lab Routine Missed menses Ordered: 05/16/2024 [facility] Comment on above: Ordered: 05/16/2024 Neisseria gonorrhoea e DNA [Presence] in Unspecified specimen by XIOMARA with probe detection Neisseria gonorrhea DNA probe, direct Lab Routine Exposure to STD Ordered: 07/17/2024 [facility] Comment on above: Ordered: 07/17/2024 Reagin Ab [Presence] in Serum by RPR RPR Lab Routine Missed menses Ordered: 05/16/2024 [facility] Comment on above: Ordered: 05/16/2024 Rubella antibody, IgG Rubella an tibody, IgG Lab Routine Missed menses Ordered: 05/16/2024 [facility] Comment on above: Ordered: 05/16/2024 SURESWAB(R) ADVANCED VAGINITIS PLUS, TMA SURESWAB(R) ADVANCED VAGINITIS PLUS, TMA Pathology and Cytology Routine Vaginal discharge Ordered: 07/17/2024 [facility] Work Phone: Comment on above: Ordered: 07/17/2024 Payers Date Payer Category Payer Unknown [id number] 2023 [facility] [id number] 2023 Unknown BCBS BCBS xxxxxx [id number] 2023-Present [phone] [address] [place] [address] [id number] 2023 Unknown [id number] 1997 Unknown [id number] 93 1997 Unknown [id number] 93 1997 Unknown [id number] 259 1997 Unknown [id number] 259 1997 Unknown [id number] 259 1997 Unknown [id number] [id number] 259 1997 Unknown [id number] 259 1997 Unknown [id number] 259 1997 Unknown [id number] [id number] 259 1997 Unknown [id number] [id number] 259 1997 Unknown [id number] 259 1959 Private Health Insurance [id number] 1959 Unknown [id number] Social History Date Type Detail Facility Start: 07-31-2023 Tobacco smoking stat [facility] Never smoked tobacco [facility] Start: [...] Gender identity Identifies as female gender (finding) [facility] Clinical Notes 05-16-2024 to 10-09-2024 Kathleen Chrissie, RN [employer]CHOOL - 10/09/2024 10:40 AM TEEalessia Chrissie, RN SCHOOL - 09/25/2024 9:00 AM BHAVESH Mares - 2024 9:30 AM Alvin Ventura, RN SCHOOL - 08/14/2024 10:40 AM EST Note Date & Type Note Facility 10-09-2024 History of Presen t illness Narrative Reason for Appointment: Patient ID: Kareen Forman is a 29 y.o. female who presents [...] Morbid obesity with BMI of 40.0-44.9, adult ([facility]) Negative test On Depo-Provera for contraception HISTORY PAST MEDICAL HISTORY SOCIAL HISTORY Past Medical History: Diagnosis Date Depression screening Encounter for gynecological examination (general) (routine) without abnormal findings Family planning Insulin resistance Morbid obesity with BMI of 40.0-44.9, adult ([facility]) Negative test On Depo-Provera for contraception [...] nursing note reviewed. Exam conducted with a lifestyle coordinator present. Vitals: Estimated body mass index is [...] Carrie Payan DO documented in this encounter [facility] 09-25-2024 History of Presen t illness Narrative Reason for Appointment: Patient ID: Kareen Forman is a 29 y.o. female who presents [...] Morbid obesity with BMI of 40.0-44.9, adult ([facility]) Negative test On Depo-Provera for contraception HISTORY PAST MEDICAL HISTORY SOCIAL HISTORY Past Medical History: Diagnosis Date Depression screening Encounter for gynecological examination (general) (routine) without abnormal findings Family planning Insulin resistance Morbid obesity with BMI of 40.0-44.9, adult ([facility]) Negative test On Depo-Provera for contraception [...] nursing note reviewed. Exam conducted with a lifestyle coordinator present. Vitals: Estimated body mass index is [...] Carrie Payan DO documented in this encounter [facility] 2024 History of Presen t illness Narrative Reason for Appointment: Patient ID: Kareen Forman is a 29 y.o. female who presents [...] Morbid obesity with BMI of 40.0-44.9, adult ([facility]) Negative test On Depo-Provera for contraception HISTORY PAST MEDICAL HISTORY SOCIAL HISTORY Past Medical History: Diagnosis Date Depression screening Encounter for gynecological examination (general) (routine) without abnormal findings Family planning Insulin resistance Morbid obesity with BMI of 40.0-44.9, adult ([facility]) Negative test On Depo-Provera for contraception [...] nursing note reviewed. Exam conducted with a lifestyle coordinator present. Vitals: Estimated body mass index is [...] of: BHAVESH Javier documented in this encounter [facility] 08-14-2024 History of Presen t illness Narrative Reason for Appointment: Patient ID: Kareen Forman is a 28 y.o. female who presents [...] Morbid obesity with BMI of 40.0-44.9, adult ([facility]) Negative test On Depo-Provera for contraception HISTORY PAST MEDICAL HISTORY SOCIAL HISTORY Past Medical History: Diagnosis Date Depression screening Encounter for gynecological examination (general) (routine) without abnormal findings Family planning Insulin resistance Morbid obesity with BMI of 40.0-44.9, adult ([facility]) Negative test On Depo-Provera for contraception [...] nursing note reviewed. Exam conducted with a lifestyle coordinator present. Vitals: Estimated body mass index is [...] Carrie Payan DO documented in this encounter [facility] 07-17-2024 History of Presen t illness Narrative Reason for Appointment: Patient ID: Kareen Forman is a 28 y.o. female who presents [...] Morbid obesity with BMI of 40.0-44.9, adult ([facility]) Negative test On Depo-Provera for contraception HISTORY PAST MEDICAL HISTORY SOCIAL HISTORY Past Medical History: Diagnosis Date Depression screening Encounter for gynecological examination (general) (routine) without abnormal findings Family planning Insulin resistance Morbid obesity with BMI of 40.0-44.9, adult ([facility]) Negative test On Depo-Provera for contraception [...] nursing note reviewed. Exam conducted with a lifestyle coordinator present. Vitals: Estimated body mass index is [...] Carrie Payan DO documented in this encounter [facility] 06-17-2024 History of Presen t illness Narrative Reason for Appointment: Patient ID: Kareen Forman is a 28 y.o. female who presents [...] Morbid obesity with BMI of 40.0-44.9, adult ([facility]) Negative test On Depo-Provera for contraception HISTORY PAST MEDICAL HISTORY SOCIAL HISTORY Past Medical History: Diagnosis Date Depression screening Encounter for gynecological examination (general) (routine) without abnormal findings Family planning Insulin resistance Morbid obesity with BMI of 40.0-44.9, adult ([facility]) Negative test On Depo-Provera for contraception [...] nursing note reviewed. Exam conducted with a lifestyle coordinator present. Vitals: Estimated body mass index is [...] or undercooked meat, and stay away from [facility]. Patient has been consulted regarding any [...] Karla Burns PA-C documented in this encounter [facility] 05-16-2024 History of Presen t illness Narrative Reason for Appointment: Patient ID: Kareen Forman is a 28 y.o. female who presents [...] Morbid obesity with BMI of 40.0-44.9, adult ([facility]) Negative test On Depo-Provera for contraception Family [...] or undercooked meat, and stay away from [facility]. Patient has also been advised to [...] DATE CREATED AUTHOR 04/05/2022 [facility] DATE CREATED AUTHOR AUTHOR'S ORGANIZ ATION 04/08/2022 [facility] DATE CREATED AUTHOR AUTHOR'S ORGANIZ ATION 10/11/2024 [facility] [employer] Care Teams (unrecognized sec tion and content) Television Analyzer Relationship Specialty Start Date End Date Karla Ortega MD [address] [place] [phone] PCP - General Family Medicine 01/24/23 Television Analyzer Relationship Specialty Start Date End Date Karla Ortega MD [address] [place] [address] PCP - General Family Medicine 01/24/23 Television Analyzer Relationship Specialty Start Date End Date Karla Ortega MD [address] [place] [address] PCP - General Family Medicine 01/24/23 Television Analyzer Relationship Specialty Start Date End Date Karla Ortega MD [address] [place] [address] PCP - General Family Medicine 01/24/23 Television Analyzer Relationship Specialty Start Date End Date Karla Ortega MD [address] [place] [address] PCP - General Family Medicine 01/24/23 Television Analyzer Relationship Specialty Start Date End Date Karla Ortega MD [address] [place] [address] PCP - General Family Medicine 01/24/23 Television Analyzer Relationship Specialty Start Date End Date Karla Ortega MD [address] [place] [address] PCP - General Family Medicine 01/24/23 Television Analyzer Relationship Specialty Start Date End Date Karla Ortega MD [address] [place] [address] PCP - General Family Medicine 01/24/23 Television Analyzer Relationship Specialty Start Date End Date Karla Ortega MD [address] [place] [address] PCP - General Family Medicine 01/24/23 Television Analyzer Relationship Specialty Start Date End Date Karla Ortega MD [address] [place] [address] PCP - General Family Medicine [...] BE BASED ON THE PRIMARY CLINICAL RECORDS. [employer] provides no warranty or guarantee of the accuracy or completeness of information in this document.
[2024-10-20 16:01] VITALS: BP 135/86; PULSE 109
== END 2024-10-20 16:30 | disposition home or self-care (01) ==
LOC: FBCO 01:09 → FBC 15:54
PROVIDERS: Visit Provider Obstetrics & Gynecology
DX: O36.63X0 Maternal care for excessive fetal growth, third trimester, not applicable or unspecified (principal); Z3A.31 31 weeks gestation of pregnancy
CPT/HCPCS: 59025

== ENCOUNTER 2024-10-23 01:31 | Outpatient (OUT) | payer BC, SELFPAY ==
--- NOTE | 2024-10-23 | US_ITS ---
[address] [address] Patient Name: KAREEN FORMAN MRN: [id number] date: 1995 Sex: F Assigned Patient Location: [facility] Current Patient Location: Accession/Order Number: [id number] Exam Date: 10/23/2024 13:18 Report Date: 10/23/2024 22:17 At the request of: CARRIE ARREDONDO DO Procedure: US OB BPP w non-stress BPP. Reason for exam: Excessive growth. COMPARISON: BPP 10/16/2024. TECHNIQUE: Transabdominal imaging of the gravid uterus was obtained. FINDINGS: Local [employer] reports the BPP is 8 out of 8. JENS measures 13.1 cm. heart rate 161 bpm. US/US OB BPP w non-stress Impression: BPP 8 out of 8. Correlation with NST is recommended. Impression dictated by: Claudio Schuster Jr., D.O.10/23/2024 10:17 PM Dictation Location: Memoir Electronically authenticated by: [id number] Y Date: 10/23/2024 22:17
--- OUTSIDE RECORDS SUMMARY | 2024-10-23 01:35 | XMS_ITS | CCD ---
Author Organization [facility] Care Team Providers Care Marsh Buggy Operator Name Role Phone DR CARRIE PAYAN Primary Care Unavailable ANGÉLICA NARAYANAN Attending Unavailable ANGÉLICA NARAYANAN Consulting Unavailable ANGÉLICA NARAYANAN Admitting Unavailable MARQUIS HENSON Consulting Unavailable DR CARRIE PAAYN Consulting Unavailable DR CARRIE PAYAN Primary Care Unavailable DR CARRIE PAYAN Admitting Unavailable ORA, DR BUTLER Attending Unavailable Karla Ortega MD Primary Care Provider [phone] CARRIE PAYAN Attending Unavailable CARRIE PAYAN Attending [...] OB BPP W NON-STRESS on 10-16-2024 [place] [address] Ultrasound Report Signed Patient: KAREEN FORMAN MR#: [id number] : 1995 Acct:[id number] Age/Sex: 29 / F ADM Date: 10/16/24 Loc: US Attending Dr: Carrie Payan D.O. Ordering Physician: Carrie Payan D.O. Date of Service: 10/16/24 Procedure(s): US OB BPP w non-stress Accession Number(s): [id number] cc: KARLA ORTEGA; Carrie Payan D.O. The [address] [address] Patient Name: KAREEN FORMAN MRN: [id number] date: 1995 Sex: F Assigned Patient Location: US Current Patient Location: Accession/Order Number: [id number] Exam Date: 10/16/2024 13:57 Report Date: 10/16/2024 [...] Signed By: 10/16/24 1544 DD/ 1541 TD/TT: Payroll And Benefits Specialist: [facility] Radiology, Radiologist, MD - 10/16/2024 [place] [address] Ultrasound Report Signed Patient: KAREEN FORMAN MR#: [id number] : 1995 Acct:[id number] Age/Sex: 29 / F ADM Date: 10/16/24 Loc: US Attending Dr: Carrie Payan D.O. Ordering Physician: Carrie Payan D.O. Date of Service: 10/16/24 Procedure(s): US OB BPP w non-stress Accession Number(s): [id number] cc: KARLA ORTEGA; Carrie Payan D.O. The [place] [address] Patient Name: KAREEN FORMAN MRN: [facility]:[id number] date: 1995 Sex: F Assigned Patient Location: US Current Patient Location: Accession/Order Number: [id number] Exam Date: 10/16/2024 13:57 Report Date: 10/16/2024 [...] Signed By: 10/16/24 1544 DD/ 40 TD/TT: Payroll And Benefits Specialist: [facility]ITAL[facility]! Radiology Study observation (narrative) [facility] [employer] OB BPP W NON-STRESS Ordered By: Radiologist Radiology on 10-16-2024 [facility]OSPITALStarsVu e Work Phone: US OB FOLLOW UP [...] II, MD, PHD at 10-Oct-2024 07:43:20 AM [facility] Normal Not Available Comment on above: Order Comment: US OB SCAN FOR GROWTH Estimated Date of Delivery: 12/19/24 Gestational Age as of 09/25/2024: 27w6d Urinalysis macro (dipstick) panel (U)on 10-09-2024 Bilirubin, UA Negative Negative - 4(70) +++ mg/dL [facility] Blood, UA Negative Negative - 50 Roberto/mcL [facility] Clarity, UA Clear [facility] Color, UA Yellow [facility] Glucose, UA Positive Negative - 2000(110) ++++ mg/dL [facility] Comment on above: 100 Interpretation and review of laboratory results Abnormal [facility] Ketones, UA Positive Negative - 160(16) ++++ mg/dL [facility] Comment on above: 15 Leukocytes, UA Negative Negative - 500+++ Christian/mcL [facility] Nitrite, UA Negative Negative - Positive [facility] pH, UA 7 5 - 9 [facility] e Protein, UA Trace Negative - 1999(20) ++++ mg/dL [facility] Spec Grav, UA 1.025 1 - 1.03 [facility] Urobilinogen, UA 0.2 0.2 - 12 mg/dL [facility] GLUCOSE TOLERANCE 3 HOURon 0 10-07-2024 GLUCOSE TOLERANCE 3 HOUR mg/dL [facility] Comment on above: GLU FAST 83 (<95) Co l: 10/07/24 0909 GLU 1HR 163 (<180) Col: 10/07/24 1012 GLU 2HR 146 (<155) Col: 10/07/24 1112 GLU 3HR 83 (<140) Col: 10/07/24 1212 [facility] Urinalysis macro (dipstick) panel (U)on 09-25-2024 Bilirubin, UA Negative Negative - 4(70) +++ mg/dL [facility] Blood, UA Negative Negative - 50 Roberto/mcL [facility] Clarity, UA Clear [facility] Color, UA Yellow [facility] Glucose, UA Negative Negative - 1999(110) ++++ mg/dL [facility] Interpretation and review of laboratory results Abnormal [facility] Ketones, UA Negative Negative - 160(16) ++++ mg/dL [facility] Leukocytes, UA Positive Negative - 500+++ Christian/mcL [facility] Healthcare Comment on above: small Nitrite, UA Negative Negative - Positive [facility] pH, UA 8.5 5 - 9 [facility] Protein, UA Negative Negative - 1999(20) ++++ mg/dL [facility] Spec Grav, UA 1.02 1 - 1.03 [facility] Urobilinogen, UA 1.0 0.2 - 12 mg/dL [facility] Urinalysis macro (dipstick) panel (U)on 2024 Bilirubin, UA Negative Negative - 4(70) +++ mg/dL [facility] Blood, UA Negative Negative - 50 Roberto/mcL [facility] Healthcare Clarity, UA Clear [facility] re Color, UA Yellow [facility] Glucose, UA Negative Negative - 1999(110) ++++ mg/dL [facility] Interpretation and review of laboratory results Abnormal [facility] Ketones, UA Negative Negative - 160(16) ++++ mg/dL [facility] Leukocytes, UA Moderate Negative - 500+++ Christian/mcL [facility] Nitrite, UA Positive Negative - Positive [facility] pH, UA 7 5 - 9 [facility] Protein, UA Positive Negative - 1999(20) ++++ mg/dL [facility] Comment on above: 100 Spec Grav, UA 1.02 1 - 1.03 [facility] Urobilinogen, UA 1.0 0.2 - 12 mg/dL [facility] Urinalysis macro (dipstick) panel (U)on 08-14-2024 Bilirubin, UA Negative Negative - 4(70) +++ mg/dL [facility] Blood, UA Negative Negative - 50 Roberto/mcL [facility] Healthcare Clarity, UA Clear [facility] re Color, UA Yellow [facility] Glucose, UA Negative Negative - 1999(110) ++++ mg/dL [facility] Interpretation and review of laboratory results Abnormal [facility] Ketones, UA Negative Negative - 160(16) ++++ mg/dL [facility] Leukocytes, UA Negative Negative - 500+++ Christian/mcL [facility] Nitrite, UA Negative Negative - Positive [facility] pH, UA 5.5 5 - 9 [facility], UA Negative Negative - 2000(20) ++++ mg/dL [facility] Spec Grav, UA 1.02 1 - 1.03 [facility] Urobilinogen, UA 1.0 0.2 - 12 mg/dL [facility] ALL CBC WITH AUTO DIFFon BASOPHILS ABSOLUTE AUTO 0 [facility] Basophils/100 WBC (Bld) 0.3 % 0.2 - 2.0 % [facility] Eosinophils/100 WBC (Bld) 0.9 % 0.9 - 7.0 % [facility] Erythrocyte distribution width (RBC) [Ratio] 14.8 % 11.0 - 15.0 % [facility] Hematocrit (Bld) [Volume fraction] 36.3 % 36.0 - 48.0 % [facility] Hemoglobin (Bld) [Mass/Vol] 11.9 g/dL Low 12.0 - 16.0 g/dL [facility] IMMATURE GRANULOCYTES ABS AUTO 0.04 High [facility] Immature granulocytes/100 WBC (Bld) 0.4 % 0.0 - 0.5 % [facility] Interpretation and review of laboratory results Abnormal [facility] LYMPHOCYTES ABSOLUTE AUTO 1.6 [facility] Lymphocytes/100 WBC (Bld) 15 % Low 20.5 - 60.0 % [facility] MCH (RBC) [Entitic mass] 27.2 pg 26.7 - 34.0 pg [facility] MCHC (RBC) [Mass/Vol] 32.8 g/dL 29.9 - 35.2 g/dL [facility] MCV (RBC) [Entitic vol] 83.1 fL 81.0 - 99.0 fL [facility] MONOCYTES ABSOLUTE AUTO 0.8 [facility] Monocytes/100 WBC (Bld) 7.4 % 1.7 - 12.0 % [facility] NEUTROPHILS ABSOLUTE AUTO 7.8 High [facility] Neutrophils/100 WBC (Bld) 76 % High 43.0 - 75.0 % [facility] Platelet mean volume (Bld) [Entitic vol] 9.2 fL Low 9.5 - 13.5 fL [facility] EO # 0.1 [facility] PLT 322 [facility] RBC 4.37 [facility] WBC 10.3 [facility] GLUCOSE 1 HOURon 07-30-2024 Glucose [Mass/Vol] 173 mg/dL High NINF - 13 0 mg/dL [facility] Healthcare Interpretation and review of laboratory results Abnormal [facility] CLINISY[facility] e RECURRENT VAGINITIS (HTRX)on 07-18-2024 ATOPOBIUM VAGINAE 21.066 Abnormal [facility] ATOPOBIUM VAGINAE Detected Abnormal [facility] BVAB 2,3 (BACTERIAL VAGINOSIS ASSOCIATED BACTERIA 2, 3); MOBILUNCUS SPP 20.228 Abnormal [facility] BVAB 2,3 (BACTERIAL VAGINOSIS ASSOCIATED BACTERIA 2, 3); MOBILUNCUS SPP Detected Abnormal [facility] BLANCA ALBICANS, PARAPSILOSIS, TROPICALIS 0 [facility] BLANCA ALBICANS, PARAPSILOSIS, TROPICALIS Not detected [facility] BLANCA GLABRATA 0 [facility] Hea lthcare BLANCA GLABRATA Not detected [facility] ealthcare BLANCA KRUSEI [address] [facility] Healt hcare BLANCA KRUSEI Not detected [facility] CHLAMYDIA TRACHOMATIS 0 [facility] CHLAMYDIA TRACHOMATIS Not detected [facility] ERMB, C; MEFA 26.225 Abnormal [facility] care ERMB, C; MEFA Detected Abnormal [facility] care GARDNERELLA VAGINALIS 21.744 Abnormal [facility] GARDNERELLA VAGINALIS Detected Abnormal [facility] Interpretation and review of laboratory results Abnormal [facility] MEGASPHAERA (TYPES 1, 2) 0 [facility] MEGASPHAERA (TYPES 1, 2) Not detected [facility] MYCOPLASMA GENITALIUM 0 [facility] MYCOPLASMA GENITALIUM Not detected [facility] NEISSERIA GONORRHOEAE 0 [facility] NEISSERIA GONORRHOEAE Not detected [facility] TET B, TET M 24.757 Abnormal [facility] are TET B, TET M Detected Abnormal [facility] are TRICHOMONAS VAGINALIS 0 [facility] TRICHOMONAS VAGINALIS Not detected [facility] Urinalysis macro (dipstick) panel (U)on 07-17-2024 Bilirubin, UA Negative Negative - 4(70) +++ mg/dL [facility] Blood, UA Negative Negative - 50 Roberto/mcL [facility] Healthcare Clarity, UA Clear [facility] re Color, UA Yellow [facility] Glucose, UA Negative Negative - 1999(110) ++++ mg/dL [facility] Interpretation and review of laboratory results Abnormal [facility] Ketones, UA Positive Negative - 160(16) ++++ mg/dL [facility] Leukocytes, UA Trace Negative - 500+++ Christian/mcL [facility] Nitrite, UA Negative Negative - Positive [facility] pH, UA 5.5 5 - 9 [facility] Protein, UA Trace Negative - 1999(20) ++++ mg/dL [facility] Spec Grav, UA 1.03 1 - 1.03 [facility] Urobilinogen, UA 0.2 0.2 - 12 mg/dL [facility] Urinalysis macro (dipstick) panel (U)on 06-17-2024 Bilirubin, UA Negative Negative - 4(70) +++ mg/dL [facility] Blood, UA Negative Negative - 50 Roberto/mcL [facility] Clarity, UA Clear [facility] Healthca re Color, UA Yellow [facility] Glucose, UA Negative Negative - 1999(110) ++++ mg/dL [facility] Interpretation and review of laboratory results Abnormal [facility] Ketones, UA Negative Negative - 160(16) ++++ mg/dL [facility] Leukocytes, UA Negative Negative - 500+++ Christian/mcL [facility] Nitrite, UA Negative Negative - Positive [facility] pH, UA 6 5 - 9 [facility] Protein, UA Positive Negative - 1999(20) ++++ mg/dL [facility] Comment on above: 100 Spec Grav, UA 1.03 1 - 1.03 [facility] Urobilinogen, UA 0.2 0.2 - 12 mg/dL [facility] ALL CBC WITH AUTO DIFFon BASOPHILS ABSOLUTE AUTO 0.0 [facility] Basophils/100 WBC (Bld) 0.4 % 0.2 - 2.0 % [facility] Eosinophils/100 WBC (Bld) 1.1 % 0.9 - 7.0 % [facility] Erythrocyte distribution width (RBC) [Ratio] 14.2 % 11.0 - 15.0 % [facility] Hematocrit (Bld) [Volume fraction] 39.3 % 36.0 - 48.0 % [facility] e Hemoglobin (Bld) [Mass/Vol] 12.8 g/dL 12.0 - 16.0 g/dL [facility] IMMATURE GRANULOCYTES ABS AUTO 0.02 [facility] Immature granulocytes/100 WBC (Bld) 0.3 % 0.0 - 0.5 % [facility] Interpretation and review of laboratory results Abnormal [facility] LYMPHOCYTES ABSOLUTE AUTO 1.6 [facility] Lymphocytes/100 WBC (Bld) 21.5 % 20.5 - 60.0 % [facility] MCH (RBC) [Entitic mass] 26.8 pg 26.7 - 34.0 pg [facility] MCHC (RBC) [Mass/Vol] 32.6 g/dL 29.9 - 35.2 g/dL [facility] MCV (RBC) [Entitic vol] 82.2 fL 81.0 - 99.0 fL [facility] MONOCYTES ABSOLUTE AUTO 0.4 [facility] Monocytes/100 WBC (Bld) 5.1 % 1.7 - 12.0 % [facility] NEUTROPHILS ABSOLUTE AUTO 5.3 [facility] Neutrophils/100 WBC (Bld) 71.6 % 43.0 - 75.0 % [facility] Platelet mean volume (Bld) [Entitic vol] 9.2 fL Low 9.5 - 13.[address] [facility] Healthc are [facility] EO # 0.1 [facility] TB PLT 324 [facility] TB RBC 4.78 [facility] TB WBC 7.4 [facility] HCG ( test) Ql (U)o n 05-16-2024 Interpretation and review of laboratory results Abnormal [facility] Preg Test, Ur Positive [facility] Health care [facility] Cytology Cervical or vaginal smear or scraping studyOrdered By: Sheila Flowers on 04-07-2024 [facility] Coding Summary.on 04-07-2022 Coding Summary. [id number] h0bWw+PGhlYWQ+IF4ZBHW zI06vbGTgnA8XB4vLBI6U HXCQDFEFDZ6NAW1tcAS1J MvrV1SwwwGu JcmmnQKePV40VYk8ZTE4m HpdZWtqeP5lbDHrQ6v4Kw PfIN53yS13QQyiSBDoVzO 3LjZpbjsgbWFy T5gmQdSutTIkSvq+PHRhY mxlIHdpZHRoPScxMDAlJy EcmPgyBK2vLl0xCNTcPDK vbGxhcHNlOiBj a2ckYPEoSSloKI3uvLzlB 1NlbFU9BLMbz4x2Fw31xM I+KIKbFPF3tXidNQfaz89 9HtFzc3uvEQV9 xVZsAGztNOJ1C85lk9X2Q DCqVOYvHGE9zUW0wU6zyW krliqaJ0DoeTFvWxH8STE 1eWLpaU1txDxu wstbmX1bJmh+Z93MBY0ME AHWED0MPun4N2BuJiybdZ I+KM77LERdCO84pWWasOZ bw5wunVo8IvAs QQMeKJG0cVqzFQnir5CxP IJhJ32daHKlq4S6XYXeaH sqgERpQuZicZU3iU8nOQl lejcjz4ukbxbr Svkxt4coec84pV47X70mV QjfDLXjVVH5DUXpVLHpfS ryzd6kfS9nSz2+ZAcij6a wz6rlsHv5AuLu GJEkanPdrNylEXR9i8UoL e25P6KhpKtou5FvMzl5wb 68oWKtc5A3bQR0YFltALG iyZ1tVTycLuU5 JCIkXtHoyW02lJJrKFefB g8lsUthbZaqXK5hEUDgkk kuQXUeyO4aXRUhlROhcIx gJL7nEMEcfjiz g907CjLdZSR9NCVxrKArG 0ClsA0dCpAmZISsZMRtA9 KclGPgHXomE350YSbrQdU 5GHXrfmPvB4Ty QENtrLlsVoF2r7Y2Qt9Lp 3YebkbzAYW8TMmzOUO8Dt S1AtQtZgV9U5PjMfl3MNN ftCofXA8iX0Oi WHRbhfbjltqcoGC9VBCwV OKqyR84aNEoRLpzJq9vt8 Y4e334VHVhHNQwuT24Zr8 udDogMTBwdCBU dG7grhswc8ehlqtzClMrO EHwTXe3UZe1OGWxjNzqIk BbWBM9ImY5EAX1dFTliF1 jxIbqpcgvjL7j Oyc+J18iwM0cBHM6AZI9c acxPYSnrwIzNS43LA88Y2 RyPjwvdGFibGU+PGRpdiB vpThkLX6qPlVw b1jld5ZsDYwpM1CqGTBjF SduWbh0TORiGVX3oIC0qU 2zHIUvWGiph1M7vQD8A1C digYgpj1ka8yr NJUhBNzkK17hsYFmw3J9D OCtdIS4GFAtxLmwBeAdgZ 93Oyc+KFIvnWgnr2BqLty nk1utt6kgoSm1 OnOvHQIzvbZykHisWKG7x 8XfAl58O20eGWgqMLUpZR XlFMBwZNMstNushh6hlT4 wIi8+PGNvbCB3 oXK7kF3pIZKmKgO3NZryA 299UcIehVVhTpgrv1dqm0 hlrMr5ZbYjLQBuwgUgpLe yYSG1j1UwUk53 C37yJYxpDIJrBKYoNKEhT BQzzJzmqu3ojV0tUb3+PC 6gu8tevh74xN37aNP+PHR iUZW7aTavBCif WWOigP9rHOnvYgM7JGBaX kKjfJ74bUUwBTrlDg4hnC kcpMgrNK6dJETvhccgd02 7XnOfa9blISVe wFEwBFlaSZD1X96ii9Z7K DRrMMFnKIC8fWD0tY5baG lnbjogbGVmdDsgdmVydGl wTPrwRItxM622 IHRvcDsnPlBhdGllbnQgT pJtRCv5C4EjFdm4PYUupK tgPB4gcHFuULayHr0jsPa zoFbgBG3xAHFj nssal652JaYdi9ggXEKta SEdQNipNEN4D08cz5L9MT PdFCVdOHW0tUT1vU2itMh nbjogbGVmdDsg tjZjsErcBCxoHArkC738W HRvcDsnPkJpcnRoIERhdG X2BH67LL99pRAgm4F2pTX 6X5CmYGAhoymc oxgzgDO1TKDfBVYwmK41E e8kdTmfUf6kAJPbILF1NX VtlFJkN8NbfL4jHcIrNJJ xREGcG5PvoJRz SBurK248JIykSeQ9LLVhr lTzE9JwLEFwsBtnLeE9j6 L1Ks9XN5L0BI36LG96oYV xj1T4iAX2B6Og OLOegqhndcsxvJW6SZIuQ PBdoI70Sr3euTtuYx9kTK KrPEH7ULJtzLVgD6PicQ6 yOiAjMDAwMDAw L8VsxBCgIAubD287UPsuG rN0CRLwngPxK9JxONNkzX zfMwD9z0V6Ka2OYWw9ZP4 5LR03tAMfa5L3 tAO3D6JzLIKuwmzbgfnbt KF3ZDObEVMjlC99Fc7tiM lkCs1bIEVvXSL0OZTmoPL eI6HelN1eUlVk FAQmPPPgE0CwgNHdNKncM 722XKlnXcF6RSXjzcMyZ8 EpDUHnhZlwTkX0f8T0En6 SSZFbXX17NTY9 jCC5DB74SA35Z3RuFgdvp GFibGU+PHRhYmxlIHdpZH RoPScxMDAlJyBzdHlsZT0 iSy0gHXVqLPDp kArdrIXxOnGbe3egBTWyC UokQF9alGddB9TwqNY9XI Qgz7j2Zh10K92xF4UgoJV +GXXdrVJ2fWP3 nR3hIdVwVvA2KJjhX916X fPzqPWwKnfhn4eff8drrC l4ZrF3CCZzanDklCleYHS 6w5EeMg57O08f IHdpZHRoPSIxNSUiIHZhb Rukbs9tzR3xSm6+PGNvbC V9xJK5dD5zPdRhXoV2PTo pD072NdCelNFs Twsbz3rhp4xswSd9HqXjG VBfcfGfpDftAZC9p2HnEt 96Q4YboUkjj3MnYev2li0 6dIIsq0C0dST9 L0QsPDNtkfexgMXybZmiD K9sQBYleyxdMWQnmN6gVJ CkH6o7XySoNtV7ULpxX6I pxvP8EWOcxVWr ZOrpAHS4Y20zt6R1PRZrW DLjHDV8hRF9mT1vdOesrw ogbGVmdDsgdmVydGljYWw gUWvjR498LMNm gKblYOLzqN6kNFYizCBde SryJI5qHOVjtftzZmPBSZ BQLCBIQUxFWSBOSUNPTEU 0L9JxVet3ORJo vEkeIB0mfLRbPAgiAr6cv QvinZpmNJ2qCZMjbtjxTG TkkF4fQPGxzUUxwVfwOJ4 gTHAbvkzqc709 ZaBvRFH9WYKxqCOwF8Ozg G0lHvHbGJNgVBYwP7FqwF FbEWhkI246SBozKpA5LTL simRjW3IxCHNa jDbnZxX1b5N1Vx7yZL1vQ W2hIHh3UM65ZU54lPFxy1 C0xMW8M9IpOQKzlotyrjw mtYE2QNWzGZXm cV70nYCwTGhmSv5bm0S0l 237JVTrKCQlgU39Cj2csY igJPNemPZSzO7ujmlxn7u vcjogIzAwMDAw FUg2SLo2IMPluWloXsNaL FT1GkF2BSB0kEBfwR1vjE pygydiuR5bCqk+MjQgWWV fspM6G6DfYcp8 WZXdfHcaGA6mrEGcPDmtY i0ndKemtUydII7rNEHhvw tcLXDjdA3tTVXbsXSzwHo sBL1fCUUuxwss o779YxQzEZS1RRZspSKiO 0JwmS8zEuAiQCKdJBOyP8 VgyFYvQYsbY980PRwoFrO 2QPTsjkVcS4Pv XWTfpWzlDuH8s7B3Om2HF L0zdJL5F5EzXtr4ZXTctE meHC7xjJGsOBhxBo7tdNx fwFmrYO9oIYPf grudIHYapX4sXZFwsCXsl RcxFD2pBUPopgqfu355Ot EwWIS6RTDmoVEzF4GihJ2 yOiAjMDAwMDAw I8MdsEJiDQrlW779TThpA fR8OILazrIpC9QvSDJeaP esRiR5o9G2Zu5CjYUnIFU sGF91QJ40JD97 G7DaMmcokCIdrHE+PHRhY mxlIHdpZHRoPScxMDAlJy MivQkqEZ3jEz7fTOVmWUY vbGxhcHNlOiBj q9wzKEWjEIxwNS9zeSozK 2LgaMJ5IVIqr0l5Rv68P6 6yQ3WioYV+ORSuwFW9jNA 7iX8nJgVdVlF9 LLaoM146AwVawSSqSzcru 9fri6nefEh2CeFlGPHsou SkgMmsBZZ7f9MzDc15J14 sIHdpZHRoPSIy KZHfSLPpvTkwbe8owT2jL i8+ILHbjTJ2iNV2wG5rOm BcKiN3FYquV855JhVejSO rJnuqI47aO2Ss dXA+YJCsRvk5ELHqqBjgV S5jsWYoNBzfLy6tDYO3Lg UhDqVyWTrmB5ThKQUatgu zgugdoCE6NLLk ADBtdX53Nh1jwMciUz4wD LQcEEO4XSGpkSFvN5HsdW 7iTdQgHEEzGYIsO2MnsEM iAPjjQ480RLwk FjO7WZUqmjLoV4GuSLYit FdlLhR8z7O1Ce0FjMprpQ QoHW9fMgHpUYn1G7PvDyo 8FQRfaJhpZH6m aQMyZZmgGy1kmQvuuHeoM J5aSZPixgwan944HoOqn6 rcNXGefSOmTAndQPZ6K00 zg8R2ZFNtMTDm KUN3cGU9pW9udMufnspfj GVmdDsgdmVydGljYWwtYW wyX251UCIzuCbzToIYYng 4W8YsXjc7RBCj dNoyDY0egUAsJOgyXh5kj BkmeGuhFT2uQSQtxlequ2 71UfTfq8bjZNPczGOoJMh cVEZ5X58tk6A9 PIDqOEAlOYT5sWA1bI9ds GlnbjogbGVmdDsgdmVydG vfORljDCtcY626BLWncLx eEc7FDxs9A1Dm Mjf9UUQhzJzvEQ7avJGkE VagRy1vrAmuoPruPU2oLO Glncxpg360UpPlp8iqXSU wcHQgVGltZXM7 P88pz4V5YBYpARVcEPB3f NQ4uY5trKysszwwxQHwpE pkhjGagQcuTLjcWFrkR53 6IHRvcDsnPlBh eWVyOjwvdGQ+JK86nl21I 4AuQsskDon8YPBnCID0pO Z2tS4jGLTrZMpsd4X0hFQ 4U1QhcvRhsb0d b2xs (more content not included)... Normal [facility] XR Ankle 3+ Views Lefton XR [...] Howell M.D. Transcribed by: JENN Technologist: STEVEN [facility] Consent for Treatmenton Consent for Treatment [id number] .[id number]:127 [facility] Physician Orderon 04-03-2022 Physician Order [id number]# 1.00CD:127 Normal [facility] XR ANKLE LT MIN 3 Von 2021 XR ANKLE LT MIN 3 V EXAM: XR ANKLE LT VA N 3 V, XR FOOT LT MIN [...] authenticated by: MARQUIS HENSON Date: 2022-03-11 16:04 [facility] PAP ACOG PANEL 2: 23 to 29on 10-24-2021 . . Normal [facility] Comment on above: Performed By: #### [id number] #### [facility] [address] [place] [address] Dr. Aura Griffiths Age Gdln ACOG Testing 23- Normal [facility] Comment on above: Performed By: #### [id number] #### [facility] [address] [address] [address] Aura Griffiths DIAGNOSIS: Comment Normal [facility] Comment on above: Result Comment: NEGA TIVE FOR INTRAEPITHELIAL LESION OR MALIGNANCY. Performed By: #### [id number] #### [facility] [address] [place] [address] Dr. Aura Griffiths Methodology: Comment Normal [facility] Comment on above: Result Comment: This liquid based ThinPrep(R) pap test was screened with the use of an image guided system. Performed By: #### [id number] #### [facility] [address] [place] [address] Dr. Aura Griffiths Note: Comment Normal [facility] Comment on above: Result Comment: The Pap smear is a screening test designed to aid in the detection of premalignant and malignant conditions of the uterine cervix. It is not a diagnostic procedure and should not be used as the sole means of detecting cervical cancer. Both false-positive and false-negative reports do occur. . Performed By: #### [id number] #### [facility] [address] [place] [address] Dr. Aura Griffiths Performed by: Comment Normal [facility] Comment on above: Result Comment: Radha Trevino, Diabetes Trainer (ASCP) Performed By: #### [id number] #### [facility] [address] [place] [address] Dr. Aura Griffiths Reflex Criteria: Comment Normal [facility] Comment on above: Result Comment: The HPV DNA reflex criteria were not met with this specimen result therefore, no HPV testing was performed. . Performed By: #### [id number] #### [facility] [address] [place] [address] Dr. Aura Griffiths Specimen adequacy: Comment Normal [facility] Comment on above: Result Comment: Sati sfactory for evaluation. Endocervical and/or squamous metaplastic cells (endocervical component) are present. Performed By: #### [id number] #### [facility] [address] [place] [address] Dr. Aura Griffiths Vital Signs Date Time Vital Sign Value Performing Clinician Aleksandr dobbs 10-09-2024 10:43-0500 Body mass index (BMI) [Ratio] 46.17 kg/m2 Carrie Ora DO Work Phone: [facility] 10-09-2024 10:43-0500 Body weight 122.02 kg Carrie Ora DO Work Phone: [facility] 10-09-2024 10:43-0500 Diastolic blood pressure 70 mm[Hg] Carrie Ora DO Work Phone: [facility] 10-09-2024 10:43-0500 Systolic blood pressure 120 mm[Hg] Carrie Ora DO Work Phone: [facility] 09-25-2024 08:58-0500 Body mass index (BMI) [Ratio] 45.49 kg/m2 Carrie Ora DO Work Phone: [facility] 09-25-2024 08:58-0500 Body weight 120.2 kg Carrie Ora DO Work Phone: [facility] 09-25-2024 08:58-0500 Diastolic blood pressure 72 mm[Hg] Carrie Ora DO Work Phone: [facility] 09-25-2024 08:58-0500 Systolic blood pressure 122 mm[Hg] Carrie Ora DO Work Phone: [facility] 2024 09:48-0500 Body mass index (BMI) [Ratio] 44.97 kg/m2 Karla OSPINA Work Phone: [facility] 2024 09:48-0500 Body weight 118.84 kg Karla OSPINA Work Phone: [facility] 2024 09:48-0500 Diastolic blood pressure 70 mm[Hg] Karla OSPINA Work Phone: [facility] 2024 09:48-0500 Systolic blood pressure 120 mm[Hg] Karla OSPINA Work Phone: [facility] 08-14-2024 11:20-0500 Body mass index (BMI) [Ratio] 44.53 kg/m2 Carrie Ora DO Work Phone: [facility] 08-14-2024 11:20-0500 Body weight 117.66 kg Carrie Ora DO Work Phone: [facility] 08-14-2024 11:20-0500 Diastolic blood pressure 82 mm[Hg] Carrie Ora DO Work Phone: [facility] 08-14-2024 11:20-0500 Systolic blood pressure 124 mm[Hg] Carrie Ora DO Work Phone: [facility] 07-17-2024 10:48-0500 Body mass index (BMI) [Ratio] 45.28 kg/m2 Carrie Ora DO Work Phone: [facility] 07-17-2024 10:48-0500 Body weight 119.66 kg Carrie Ora DO Work Phone: [facility] 07-17-2024 10:48-0500 Diastolic blood pressure 70 mm[Hg] Carrie Ora DO Work Phone: [facility] 07-17-2024 10:48-0500 Systolic blood pressure 120 mm[Hg] Carrie Ora DO Work Phone: [facility] 06-17-2024 10:48-0400 Body mass index (BMI) [Ratio] 44.99 kg/m2 Carrie Ora DO Work Phone: [facility] 06-17-2024 10:48-0400 Body weight 118.9 kg Carrie Ora DO Work Phone: [facility] 06-17-2024 10:48-0400 Diastolic blood pressure 70 mm[Hg] Carrie Ora DO Work Phone: [facility] 06-17-2024 10:48-0400 Systolic blood pressure 120 mm[Hg] Carrie Ora DO Work Phone: [facility] 05-16-2024 09:16-0400 Body mass index (BMI) [Ratio] 46 kg/m2 [facility] 05-16-2024 09:160400 Body weight 121.56 kg [facility] 05-16-2024 09:16-0400 Diastolic blood pressure 70 mm[Hg] [...] flow sheet Carrie Ora DO Work Phone: [facility] Comment on above: Second trimester pre gnancy; 27 weeks gestation of ; Elevated glucose tolerance test Start: 09-25-2024 End: 09-25-2024 ambulatory CARRIE ORA Not Available Start: 2024 End: 2024 Bamboo flowsheet Karla OSPINA Work Phone: [facility] Start: 2024 End: 2024 Bamboo flowsheet Karla Burns PA Work Phone: [facility] Start: 2024 End: 2024 flow sheet Karla OSPINA Work Phone: [facility] Comment on above: 25 weeks gestation o f ; Second trimester ; UTI symptoms Start: 2024 End: 2024 ambulatory KARLA BURNS Not Available Start: 08-14-2024 End: 08-14-2024 Bamboo flowsheet Carrie Ora DO Work Phone: [facility] Start: 08-14-2024 End: 08-14-2024 Bamboo flowsheet Carrie Ora DO Work Phone: [facility] Start: 08-14-2024 End: 08-14-2024 flow sheet Carrie Ora DO Work Phone: [facility] Comment on above: Second trimester pre gnancy; 21 weeks gestation of Start: 08-14-2024 End: 08-14-2024 ambulatory CARRIE ORA Not Available Start: 08-12-2024 End: 08-12-2024 Clinisync Result Encounter Carrie Ora DO Work Phone: [facility] External Department Unsolicited Start: 08-12-2024 End: 08-12-2024 Clinisync Result Encounter Carrie Ora DO Work Phone: [facility] External Department Unsolicited Start: 07-30-2024 End: [...] stick/tabl et rgnt non-auto w/o micrscp [employer] DO Work Phone: Start: 06-17-2024 Urnls dip stick/tabl et rgnt non-auto w/o micrscp Carrie Ora DO Work Phone: Start: 05-30-2024 ALL CBC WITH AUTO DIFF [employer] DO Work Phone: Start: 05-16-2024 Urine test visual color cmprsn meths [employer] DO Work Phone: Start: 04-07-2024 Cytp cerv/vag auto t hin layer prep mnl screen [employer] Work Phone: Plan of Treatment Date Care Activity Detail Author Start: 10-23-2024 End: 10-23-2024 Patient encounter procedure 10/23/2024 10:50 AM EST Routine [facility] [address] [place] [address] Karla Burns PA [address] [place], [place] [id number] [facility] Start: 10-09-2024 End: 10-09-2025 US biophysical profile w non stress test US biophysical profile w non stress test Imaging Routine Excessive growth affecting management of , antepartum, single or unspecified fetus Expected: 10/09/2024 (Approximate), Expires: 10/09/2025 [facility] Work Phone: Comment on above: [...] AM EST Routine [facility] [address] [place] [id number] Carrie Payan, DO [address] [place] [address] [facility] Start: 10-09-2024 End: 10-09-2024 Professional / ancillary services management 10/09/2024 10:00 AM EST Ancillary Procedure [facility] [address] [place] [id number] [facility] Start: 09-25-2024 End: 09-25-2025 Measurement of glucose 3 hours after glucose challenge for glucose tolerance test Glucose tolerance, 3 hours Lab Routine Elevated glucose tolerance test Expected: 09/25/2024 (Approximate), Expires: 09/25/2025 [facility] Comment on above: Expected: 09/25/2024 [...] Procedure [facility] [address] [place] [id number] [facility] Start: 07-17-2024 End: 09-16-2024 Alpha fetoprotein, maternal Alpha fetoprotein, maternal Lab Routine Second trimester Expected: 07/17/2024 (Approximate), Expires: 09/16/2024 [facility] Comment on above: Expected: 07/17/2024 [...] anatomic survey Expected: 07/17/2024 (Approximate), Expires: 07/17/2025 [facility] Comment on above: Expected: 07/17/2024 (Approximate), Expires: 07/17/2025 Start: 07-15-2024 End: 07-15-2024 Patient encounter procedure 07/15/2024 10:50 AM EST Routine [facility] [address] [place] [id number] Carrie Payan, DO [address] [place] [address] [facility] Start: 06-17-2024 End: 06-17-2024 Patient encounter procedure [facility] Comment on above: Arrived Start: 05-16-2024 End: 05-16-2025 ABO/Rh ABO/Rh Lab Routine Missed menses Expected: 05/16/2024 (Approximate), Expires: 05/16/2025 [facility] Comment on above: Expected: 05/16/2024 (Approximate), Expires: 05/16/2025 Start: 05-16-2024 End: 05-16-2025 Blood type and Indirect antibody screen panel - Blood Type and screen Lab Routine Missed menses Expected: 05/16/2024 (Approximate), Expires: 05/16/2025 [facility] Work Phone: Comment on above: Expected: 05/16/2024 (Approximate), Expires: 05/16/2025 Start: 05-16-2024 End: 05-16-2025 Drugs of abuse panel - Urine by Screen method Rapid drug screen, urine Lab Routine Encounter for supervision of normal first in first trimester , unspecified gestational age Expected: 05/16/2024 (Approximate), Expires: 05/16/2025 [facility] Comment on above: Expected: 05/16/2024 (Approximate), Expires: 05/16/2025 Start: 05-16-2024 End: 05-16-2025 US Pelvis transvaginal US OB transvaginal Imaging Routine Missed menses Expected: 05/16/2024 (Approximate), Expires: 05/16/2025 [facility] Comment on above: Expected: 05/16/2024 (Approximate), Expires: 05/16/2025 Bacteria identified in Urine by Culture Urine culture Microbiology Routine Missed menses Ordered: 05/16/2024 [facility] Comment on above: Ordered: 05/16/2024 Bacteria identified in Urine by Culture Urine culture Microbiology Routine UTI symptoms Ordered: 2024 [facility] Work Phone: Comment on above: Ordered: 2024 CBC W Auto Different ial panel - Blood CBC and differential Lab Routine Missed menses Ordered: 05/16/2024 [facility] Comment on above: Ordered: 05/16/2024 CHLAMYDIA TRACHOMATI S (GENITO/STI) CHLAMYDIA TRACHOMATIS (GENITO/STI) Lab Routine Exposure to STD Ordered: 07/17/2024 [facility] Comment on above: Ordered: 07/17/2024 Hemoglobin A1c/Hemoglobin.total in Blood Hemoglobin A1c Lab Routine Missed menses Ordered: 05/16/2024 [facility] Comment on above: Ordered: 05/16/2024 Hepatitis B virus surface Ag [Presence] in Serum or Plasma by Immunoassay Hepatitis B surface antigen Lab Routine Missed menses Ordered: 05/16/2024 [facility] Comment on above: Ordered: 05/16/2024 Hepatitis C virus Ab [Presence] in Serum or Plasma by Immunoassay Hepatitis C antibody Lab Routine Missed menses Ordered: 05/16/2024 [facility] Comment on above: Ordered: 05/16/2024 HIV-1/HIV-2 antigen/antibody combination immunoassay HIV-1 and HIV-2 antibodies Lab Routine Missed menses Ordered: 05/16/2024 [facility] Comment on above: Ordered: 05/16/2024 Neisseria gonorrhoea e DNA [Presence] in Unspecified specimen by XIOMARA with probe detection Neisseria gonorrhea DNA probe, direct Lab Routine Exposure to STD Ordered: 07/17/2024 [facility] Comment on above: Ordered: 07/17/2024 Reagin Ab [Presence] in Serum by RPR RPR Lab Routine Missed menses Ordered: 05/16/2024 [facility] Comment on above: Ordered: 05/16/2024 Rubella antibody, IgG Rubella an tibody, IgG Lab Routine Missed menses Ordered: 05/16/2024 [facility] Comment on above: Ordered: 05/16/2024 SURESWAB(R) ADVANCED VAGINITIS PLUS, TMA SURESWAB(R) ADVANCED VAGINITIS PLUS, TMA Pathology and Cytology Routine Vaginal discharge Ordered: 07/17/2024 [facility] Work Phone: Comment on above: Ordered: 07/17/2024 Payers Date Payer Category Payer Unknown [id number] 2023 [facility] [id number] 2023 Unknown BCBS BCBS xxxxxx [id number] 2023-Present [phone] [address] [place] [address] [id number] 2023 Unknown [id number] 1997 Unknown [id number] 93 1997 Unknown [id number] 93 1997 Unknown [id number] 259 1997 Unknown [id number] 259 1997 Unknown [id number] 259 1997 Unknown [id number] 259 1997 Unknown [id number] 259 1997 Unknown [id number] 259 1997 Unknown [id number] [id number] 259 1997 Unknown [id number] 259 1997 Unknown [id number] 259 1959 Private Health Insurance [id number] 1959 Unknown [id number] Social History Date Type Detail Facility Start: 07-31-2023 Tobacco smoking stat [facility] Never smoked tobacco [facility] Start: [...] Clinical Notes 05-16-2024 to 10-09-2024 Kathleen Chrissie, AUTO TRANSPORT DRIVER - 10/09/2024 10:40 AM TEEalessia Chrissie, AUTO TRANSPORT DRIVER - 09/25/2024 9:00 AM BHAVESH Mares - 2024 9:30 AM Alvin Ventura, AUTO TRANSPORT DRIVER - 08/14/2024 10:40 AM EST Note Date [...] Morbid obesity with BMI of 40.0-44.9, adult ([facility]) Negative test On Depo-Provera for contraception HISTORY PAST MEDICAL HISTORY SOCIAL HISTORY Past Medical History: Diagnosis Date Depression screening Encounter for gynecological examination (general) (routine) without abnormal findings Family planning Insulin resistance Morbid obesity with BMI of 40.0-44.9, adult ([facility]) Negative test On Depo-Provera for [...] nursing note reviewed. Exam conducted with a fruit dumper present. Vitals: Estimated body mass index is [...] Carrie Payan DO documented in this encounter [facility] 09-25-2024 History of Presen t illness Narrative [...] Morbid obesity with BMI of 40.0-44.9, adult ([facility]) Negative test On Depo-Provera for contraception HISTORY PAST MEDICAL HISTORY SOCIAL HISTORY Past Medical History: Diagnosis Date Depression screening Encounter for gynecological examination (general) (routine) without abnormal findings Family planning Insulin resistance Morbid obesity with BMI of 40.0-44.9, adult ([facility]) Negative test On Depo-Provera for [...] nursing note reviewed. Exam conducted with a fruit dumper present. Vitals: Estimated body mass index is [...] Carrie Payan DO documented in this encounter [facility] 2024 History of Presen t illness Narrative [...] Morbid obesity with BMI of 40.0-44.9, adult ([facility]) Negative test On Depo-Provera for contraception HISTORY PAST MEDICAL HISTORY SOCIAL HISTORY Past Medical History: Diagnosis Date Depression screening Encounter for gynecological examination (general) (routine) without abnormal findings Family planning Insulin resistance Morbid obesity with BMI of 40.0-44.9, adult ([facility]) Negative test On Depo-Provera for [...] nursing note reviewed. Exam conducted with a fruit dumper present. Vitals: Estimated body mass index is [...] of: BHAVESH Javier documented in this encounter [facility] 08-14-2024 History of Presen t illness Narrative [...] Morbid obesity with BMI of 40.0-44.9, adult ([facility]) Negative test On Depo-Provera for contraception HISTORY PAST MEDICAL HISTORY SOCIAL HISTORY Past Medical History: Diagnosis Date Depression screening Encounter for gynecological examination (general) (routine) without abnormal findings Family planning Insulin resistance Morbid obesity with BMI of 40.0-44.9, adult ([facility]) Negative test On Depo-Provera for [...] nursing note reviewed. Exam conducted with a fruit dumper present. Vitals: Estimated body mass index is [...] Carrie Payan DO documented in this encounter [facility] 07-17-2024 History of Presen t illness Narrative [...] Morbid obesity with BMI of 40.0-44.9, adult ([facility]) Negative test On Depo-Provera for contraception HISTORY PAST MEDICAL HISTORY SOCIAL HISTORY Past Medical History: Diagnosis Date Depression screening Encounter for gynecological examination (general) (routine) without abnormal findings Family planning Insulin resistance Morbid obesity with BMI of 40.0-44.9, adult ([facility]) Negative test On Depo-Provera for [...] nursing note reviewed. Exam conducted with a fruit dumper present. Vitals: Estimated body mass index is [...] Carrie Payan DO documented in this encounter [facility] 06-17-2024 History of Presen t illness Narrative [...] Morbid obesity with BMI of 40.0-44.9, adult ([facility]) Negative test On Depo-Provera for contraception HISTORY PAST MEDICAL HISTORY SOCIAL HISTORY Past Medical History: Diagnosis Date Depression screening Encounter for gynecological examination (general) (routine) without abnormal findings Family planning Insulin resistance Morbid obesity with BMI of 40.0-44.9, adult ([facility]) Negative test On Depo-Provera for [...] nursing note reviewed. Exam conducted with a fruit dumper present. Vitals: Estimated body mass index is [...] undercooked meat, and stay away from [facility]. Patient has been consulted regarding any [...] Karla Burns PA-C documented in this encounter [facility] 05-16-2024 History of Presen t illness Narrative [...] Morbid obesity with BMI of 40.0-44.9, adult ([facility]) Negative test On Depo-Provera for [...] undercooked meat, and stay away from [facility]. Patient has also been advised to [...] DATE CREATED AUTHOR [facility]/05/2022 [facility] DATE CREATED AUTHOR AUTHOR'S ORGANIZ ATION 04/08/2022 [facility] DATE CREATED AUTHOR AUTHOR'S ORGANIZ ATION 10/11/2024 [facility] EPIC Care Teams (unrecognized sec tion and content) [employer] Operator Relationship Specialty Start Date End Date Karla Ortega MD [address] [place] [id number] PCP - General Family Medicine 01/24/23 [employer] Relationship Specialty Start Date End Date Karla Ortega MD [address] [place] [address] PCP - General Family Medicine 01/24/23 [employer] Relationship Specialty Start Date End Date Karla Ortega MD [address] [place] [address] PCP - General Family Medicine 01/24/23 [employer] Relationship Specialty Start Date End Date Karla Ortega MD [address] [place] [address] PCP - General Family Medicine 01/24/23 [employer] Relationship Specialty Start Date End Date Karla Oretga MD [address] [place] [address] PCP - General Family Medicine 01/24/23 [employer] Relationship Specialty Start Date End Date Karla Ortega MD [address] [place] [address] PCP - General Family Medicine 01/24/23 [employer] Relationship Specialty Start Date End Date Karla Ortega MD [address] [place] [address] PCP - General Family Medicine 01/24/23 [employer] Relationship Specialty Start Date End Date Karla Ortega MD [address] [place] [address] PCP - General Family Medicine 01/24/23 [employer] Relationship Specialty Start Date End Date Karla Ortega MD [address] [place] [address] PCP - General Family Medicine 01/24/23 [employer] Relationship Specialty Start Date End Date Karla Ortega MD [address] [place] [address] PCP - General Family Medicine [...] BE BASED ON THE PRIMARY CLINICAL RECORDS. [employer] provides no warranty or guarantee of the accuracy or completeness of information in this document.
[2024-10-23 13:17] VITALS: BP 127/70; PULSE 101
== END 2024-10-23 14:28 | disposition home or self-care (01) ==
LOC: US 01:31 → FBC 12:51
PROVIDERS: Visit Provider Obstetrics & Gynecology
DX: O36.63X0 Maternal care for excessive fetal growth, third trimester, not applicable or unspecified (principal); Z3A.31 31 weeks gestation of pregnancy
CPT/HCPCS: 76818

== ENCOUNTER 2024-10-27 00:28 | Outpatient (OUT) | payer BC, SELFPAY ==
--- OUTSIDE RECORDS SUMMARY | 2024-10-27 00:32 | XMS_ITS | CCD ---
Author Organization [facility] Care Team Providers Care Department Of Sociology Chair Name Role Phone DR CARRIE PAYAN Primary Care Unavailable ANGÉLICA NARAYANAN Attending Unavailable ANGÉLICA NARAYANAN Consulting Unavailable ANGÉLICA NARAYANAN Admitting Unavailable MARQUIS HENSON Consulting Unavailable DR CARRIE PAYAN Consulting Unavailable DR CARRIE PAYAN Primary Care Unavailable DR CARREI PAYAN Admitting Unavailable DR CARRIE PAYAN Attending Unavailable Karla Ortega MD Primary Care Provider CARRIE PAYAN Attending Unavailable KARLA BURNS Attending Unavailable CARRIE PAYAN Attending Unavailable KARLA BURNS Attending Unavailable CARRIE PAYAN Attending Unavailable CARRIE PAYAN Attending Unavailable CARRIE PAYAN Attending Unavailable KARLA BURNS Attending Unavailable Medications Current Medications Medication Drug Class(es) Dates Sig (Normalized) Sig (Original) aspirin 81 mg delayed release oral tablet (10 sources) Platelet Aggregation Inhibitor, Nonsteroidal Anti-inflammatory Drug Start: 09-25-2024 End: 09-25-2025 take 1 tablet by mouth once daily aspirin 81 MG EC tablet Indications: Second trimester , 27 weeks gestation of Take 1 tablet (81 mg) by mouth Daily 30 tablet 6 09/25/2024 09/25/2025 Active azithromycin 250 mg oral tablet (7 sources) Macrolide Antimicrobial Start: 10-09-2024 azithromycin (Zithromax [...] 07-17-2024 Episodic Other and delivery including normal (16 sources) Second trimester ; Translations: [Encounter for [...] [29 weeks gestation of ] 10-09-2024 Episodic Residual codes; unclassified (2 sources) Gestation period, 31 weeks; Translations: [31 weeks gestation of ] 10-23-2024 Episodic Sprains and strains (1 source) Sprain of unspecified ligament of left ankle, initial encounter; Translations: [SPRAIN UNS LIGAMENT LT ANKLE INIT] Onset: 03-13-2022 Episodic Results Test Name Value Interpretation Reference Range Facility OB BPP W NON-STRESS on 10-23-2024 [place] [address] Ultrasound Report Signed Patient: KAREEN FORMAN MR#: [id number] : 1995 Acct:[id number] Age/Sex: 29 / F ADM Date: 10/23/24 Loc: US Attending Dr: Carrie Payan D.O. Ordering Physician: Carrie Payan D.O. Date of Service: 10/23/24 Procedure(s): US OB BPP w non-stress Accession Number(s): [id number] cc: KARLA ORTEGA; Carrie Payan D.O. [place] [id number] Patient Name: KAREEN FORMAN MRN: [facility]:[id number] date: 1995 Sex: F Assigned Patient Location: [facility] Current Patient Location: [place] Accession/Order Number: [id number] Exam Date: 10/23/2024 13:18 Report Date: 10/23/2024 22:17 At the request of: CARRIE PAYAN DO Procedure: US OB BPP w non-stress BPP. Reason for exam: Excessive growth. COMPARISON: BPP 10/16/2024. TECHNIQUE: Transabdominal imaging of the gravid uterus was obtained. FINDINGS: Barrel Scraper reports the BPP is 8 out of 8. JENS measures 13.1 cm. heart rate 161 bpm. US/US OB BPP w non-stress Impression: BPP 8 out of 8. Correlation with NST is recommended. Impression dictated by: Claudio Schuster Jr., D.O.10/23/2024 10:17 PM Dictation Location: [place] [address] Electronically authenticated by: [id number] Y Date: 10/23/2024 22:17 Dictated By: Claudio Schuster M.D. Signed By: 10/23/242218 DD/ 16 TD/TT: 4Th Grade Teacher: [facility] Radiology, Radiologist, MD - 10/23/2024 [place] [address] Ultrasound Report Signed Patient: KAREEN FORMAN MR#: [id number] : 1995 Acct:[id number] Age/Sex: 29 / F ADM Date: 10/23/24 Loc: US Attending Dr: Carrie Payan D.O. Ordering Physician: Carrie Payan D.O. Date of Service: 10/23/24 Procedure(s): US OB BPP w non-stress Accession Number(s): [id number] cc: KARLA ORTEGA; Carrie Payan D.O. [place] [id number] Patient Name: KAREEN FORMAN MRN: [facility]:[id number] date: 1995 Sex: F Assigned Patient Location: [facility] Current Patient Location: US Accession/Order Number: [id number] Exam Date: 10/23/2024 13:18 Report Date: 10/23/2024 22:17 At the request of: CARRIE PAYAN DO Procedure: US OB BPP w non-stress BPP. Reason for exam: Excessive growth. COMPARISON: BPP 10/16/2024. TECHNIQUE: Transabdominal imaging of the gravid uterus was obtained. FINDINGS: Barrel Scraper reports the BPP is 8 out of 8. JENS measures 13.1 cm. heart rate 161 bpm. US/US OB BPP w non-stress Impression: BPP 8 out of 8. Correlation with NST is recommended. Impression dictated by: Claudio Schuster Jr., D.O.10/23/2024 10:17 PM Dictation Location: [id number] Electronically authenticated by: [id number] Y Date: 10/23/2024 22:17 Dictated By: Claudio Schuster M.D. Signed By: 10/23/242218 DD/ 16 TD/TT: 4Th Grade Teacher: [facility] Radiology Study observation (narrative) [facility] US OB BPP W NON-STRESS Ordered By: Radiologist Radiology on 10-23-2024 [facility] [employer] Work Phone: Urinalysis macro (dipstick) panel (U)on 10-23-2024 Bilirubin, UA Negative Negative - 4(70) +++ mg/dL [facility] Blood, UA Negative Negative - 50 Roberto/mcL [facility] Clarity, UA Clear [facility] re Color, UA Yellow [facility] Glucose, UA Negative Negative - 1999(110) ++++ mg/dL [facility] Interpretation and review of laboratory results Abnormal [facility] Ketones, UA Negative Negative - 160(16) ++++ mg/dL [facility] Leukocytes, UA Trace Negative - 500+++ Christian/mcL [facility] Nitrite, UA Negative Negative - Positive [facility] pH, UA 6.5 5 - 9 [facility] e Protein, UA Negative Negative - 1999(20) ++++ mg/dL [facility] Spec Grav, UA 1.025 1 - 1.03 [facility] Urobilinogen, UA 1.0 0.2 - 12 mg/dL [facility] US OB BPP W NON-STRESS on 10-16-2024 [place] [id number] Ultrasound Report Signed Patient: KAREEN FORMAN MR#: [id number] : 1995 Acct:[id number] Age/Sex: 29 / F ADM Date: 10/16/24 Loc: US Attending Dr: Carrie Payan D.O. Ordering Physician: Carrie Payan D.O. Date of Service: 10/16/24 Procedure(s): US OB BPP w non-stress Accession Number(s): [id number] cc: KARLA ORTEGA; Carrie Payan D.O. [address] [address] Patient Name: KAREEN FORMAN MRN: [facility]:[id number] date: 1995 Sex: F Assigned Patient Location: US Current Patient Location: Accession/Order Number: [id number] Exam Date: 10/16/2024 13:57 Report Date: 10/16/2024 [...] Signed By: 10/16/24 1544 DD/ 1541 TD/TT: 4Th Grade Teacher: [facility] Radiology, Radiologist, MD - 10/16/2024 [place] [address] Ultrasound Report Signed Patient: KAREEN FORMAN MR#: [id number] : 1995 Acct:[id number] Age/Sex: 29 / F ADM Date: 10/16/24 Loc: US Attending Dr: Carrie Payan D.O. Ordering Physician: Carrie Payan D.O. Date of Service: 10/16/24 Procedure(s): US OB BPP w non-stress Accession Number(s): [id number] cc: KARLA ORTEGA; Carrie Payan D.O. [place] [id number] Patient Name: KAREEN FORMAN MRN: [id number]:[id number] date: 1995 Sex: F Assigned Patient Location: US Current Patient Location: Accession/Order Number: [id number] Exam Date: 10/16/2024 13:57 Report Date: 10/16/2024 [...] biophysical profile score: 8 Electronically authenticated by: IRK LEOS Date: 10/16/2024 15:41 Dictated By: Rik Leos M.D. Signed By: 10/16/24 1544 DD/ 154 TD/TT: 4Th Grade Teacher: [facility] Radiology Study observation (narrative) [facility] US OB BPP W NON-STRESS Ordered By: Radiologist Radiology [facility]24 [facility] US OB FOLLOW UP [...] II, MD, PHD at 10-Oct-2024 07:43:20 AM [facility] Normal Not Available Comment on above: Order Comment: US OB SCAN FOR GROWTH Estimated Date of Delivery: 12/19/24 Gestational Age as of 09/25/2024: 27w6d Urinalysis macro (dipstick) panel (U)on 10-09-2024 Bilirubin, UA Negative Negative - 4(70) +++ mg/dL [facility] [employer] Blood, UA Negative Negative - 50 Roberto/mcL [facility] Clarity, UA Clear [facility] re Color, UA Yellow [facility] [employer] Glucose, UA Positive Negative - 2000(110) ++++ mg/dL [facility] [employer] Comment on above: 100 Interpretation and review of laboratory results Abnormal [facility] Ketones, UA Positive Negative - 160(16) ++++ mg/dL [facility] Comment on above: 15 Leukocytes, UA Negative Negative - 500+++ Christian/mcL [facility] Nitrite, UA Negative Negative - Positive [facility] pH, UA 7 5 - 9 [facility] Protein, UA Trace Negative - 1999(20) ++++ mg/dL [facility] Spec Grav, UA 1.025 1 - 1.03 [facility] Urobilinogen, UA 0.2 0.2 - 12 mg/dL [facility] GLUCOSE TOLERANCE 3 HOURon 0 10-07-2024 GLUCOSE TOLERANCE 3 HOUR mg/dL [facility] Comment on above: GLU FAST 83 (<95) Co l: 10/07/24 0909 GLU 1HR 163 (<180) Col: 10/07/24 1012 GLU 2HR 146 (<155) Col: 10/07/24 1112 GLU 3HR 83 (<140) Col: 10/07/24 1212 [facility] e Urinalysis macro (dipstick) panel (U)on 09-25-2024 Bilirubin, UA Negative Negative - 4(70) +++ mg/dL [facility] Blood, UA Negative Negative - 50 Roberto/mcL [facility] Clarity, UA Clear [facility] re Color, UA Yellow [facility] e Glucose, UA Negative Negative - 1999(110) ++++ mg/dL [facility] Interpretation and review of laboratory results Abnormal [facility] Ketones, UA Negative Negative - 160(16) ++++ mg/dL [facility] Leukocytes, UA Positive Negative - 500+++ Christian/mcL [facility] Comment on above: small Nitrite, UA Negative Negative - Positive [facility] pH, UA 8.5 5 - 9 [facility] Protein, UA Negative Negative - 1999(20) ++++ mg/dL [facility] Spec Grav, UA 1.02 1 - 1.03 [facility] Urobilinogen, UA 1.0 0.2 - 12 mg/dL [facility] Urinalysis macro (dipstick) panel (U)on 2024 Bilirubin, UA Negative Negative - 4(70) +++ mg/dL [facility] Blood, UA Negative Negative - 50 Roberto/mcL [facility] Clarity, UA Clear [facility] Color, UA Yellow [facility] Glucose, UA Negative Negative - 1999(110) ++++ mg/dL [facility] Interpretation and review of laboratory results Abnormal [facility] Ketones, UA Negative Negative - 160(16) ++++ mg/dL [facility] Leukocytes, UA Moderate Negative - 500+++ Christian/mcL [facility] Nitrite, UA Positive Negative - Positive [facility] pH, UA 7 5 - 9 [facility] Protein, UA Positive Negative - 1999(20) ++++ mg/dL [facility] Comment on above: 100 Spec Grav, UA 1.02 1 - 1.03 [facility] Urobilinogen, UA 1.0 0.2 - 12 mg/dL [facility] Urinalysis macro (dipstick) panel (U)on 08-14-2024 Bilirubin, UA Negative Negative - 4(70) +++ mg/dL [facility] Blood, UA Negative Negative - 50 Roberto/mcL [facility] Clarity, UA Clear [facility] re Color, UA Yellow [facility] Glucose, UA Negative Negative - 1999(110) ++++ mg/dL [facility] Interpretation and review of laboratory results Abnormal [facility] Ketones, UA Negative Negative - 160(16) ++++ mg/dL [facility] Leukocytes, UA Negative Negative - 500+++ Christian/mcL [facility] Nitrite, UA Negative Negative - Positive [facility] pH, UA 5.5 5 - 9 [facility] e Protein, UA Negative Negative - 1999(20) ++++ mg/dL [facility] Spec Grav, UA 1.02 1 - 1.03 [facility] Urobilinogen, UA 1.0 0.2 - 12 mg/dL [facility] ALL CBC WITH AUTO DIFFon BASOPHILS ABSOLUTE AUTO 0 [facility] Basophils/100 WBC (Bld) 0.3 % 0.2 - 2.0 % [facility] Eosinophils/100 WBC (Bld) 0.9 % 0.9 - 7.0 % [facility] Erythrocyte distribution width (RBC) [Ratio] 14.8 % 11.0 - 15.0 % [facility] Hematocrit (Bld) [Volume fraction] 36.3 % 36.0 - 48.0 % [facility] Hemoglobin (Bld) [Mass/Vol] 11.9 g/dL Low 12.0 - 16.0 g/dL [facility] IMMATURE GRANULOCYTES ABS AUTO 0.04 High [facility] Immature granulocytes/100 WBC (Bld) 0.4 % 0.0 - 0.5 % [facility] Interpretation and review of laboratory results Abnormal [facility] LYMPHOCYTES ABSOLUTE AUTO 1.6 [facility] Lymphocytes/100 WBC (Bld) 15 % Low 20.5 - 60.0 % [facility] MCH (RBC) [Entitic mass] 27.2 pg 26.7 - 34.0 pg [facility] MCHC (RBC) [Mass/Vol] 32.8 g/dL 29.9 - 35.2 g/dL [facility] MCV (RBC) [Entitic vol] 83.1 fL 81.0 - 99.0 fL [facility] MONOCYTES ABSOLUTE AUTO 0.8 [facility] Monocytes/100 WBC (Bld) 7.4 % 1.7 - 12.0 % [facility] NEUTROPHILS ABSOLUTE AUTO 7.8 High [facility] Neutrophils/100 WBC (Bld) 76 % High 43.0 - 75.0 % [facility] Platelet mean volume (Bld) [Entitic vol] 9.2 fL Low 9.5 - 13.5 fL [facility] Healthc are [facility]H EO # 0.1 [facility] e TB PLT 322 [facility] RBC 4.37 [facility] TB WBC 10.3 [facility] GLUCOSE 1 HOURon 07-30-2024 Glucose [Mass/Vol] 173 mg/dL High NINF - 13 0 mg/dL [facility] Interpretation and review of laboratory results Abnormal [facility] e RECURRENT VAGINITIS (HTRX)on 07-18-2024 ATOPOBIUM VAGINAE 21.066 Abnormal [facility] ATOPOBIUM VAGINAE Detected Abnormal [facility] BVAB 2,3 (BACTERIAL VAGINOSIS ASSOCIATED BACTERIA 2, 3); MOBILUNCUS SPP 20.228 Abnormal [facility] BVAB 2,3 (BACTERIAL VAGINOSIS ASSOCIATED BACTERIA 2, 3); MOBILUNCUS SPP Detected Abnormal [facility] BLANCA ALBICANS, PARAPSILOSIS, TROPICALIS 0 [facility] BLANCA ALBICANS, PARAPSILOSIS, TROPICALIS Not detected [facility] BLANCA GLABRATA 0 [facility] BLANCA GLABRATA Not detected [facility] H ealthcare BLANCA KRUSEI 0 [facility] Healt hcare BLANCA KRUSEI Not detected [facility] CHLAMYDIA TRACHOMATIS 0 [facility] CHLAMYDIA TRACHOMATIS Not detected [facility] ERMB, C; MEFA 26.225 Abnormal [facility] Health care ERMB, C; MEFA Detected Abnormal [facility] care GARDNERELLA VAGINALIS 21.744 Abnormal [facility] GARDNERELLA VAGINALIS Detected Abnormal [facility] Interpretation and review of laboratory results Abnormal [facility] MEGASPHAERA (TYPES 1, 2) 0 [facility] MEGASPHAERA (TYPES 1, 2) Not detected [facility] MYCOPLASMA GENITALIUM 0 [facility] MYCOPLASMA GENITALIUM Not detected [facility] NEISSERIA GONORRHOEAE 0 [facility] NEISSERIA GONORRHOEAE Not detected [facility] TET B, TET M 24.757 Abnormal [facility] Healthc are TET B, TET M Detected [facility]normal [facility] TRICHOMONAS VAGINALIS 0 [facility] TRICHOMONAS VAGINALIS Not detected [facility] Urinalysis macro (dipstick) panel (U)on 07-17-2024 Bilirubin, UA Negative Negative - 4(70) +++ mg/dL [facility] Blood, UA Negative Negative - 50 Roberto/mcL [facility] Clarity, UA Clear [facility] re Color, UA Yellow [facility] Health[facility] e Glucose, UA Negative Negative - 1999(110) ++++ mg/dL [facility] Interpretation and review of laboratory results Abnormal [facility] Ketones, UA Positive Negative - 160(16) ++++ mg/dL [facility] Leukocytes, UA Trace Negative - 500+++ Christian/mcL [facility] Nitrite, UA Negative Negative - Positive [facility] pH, UA 5.5 5 - 9 [facility] e Protein, UA Trace Negative - 1999(20) ++++ mg/dL [facility] Spec Grav, UA 1.03 1 - 1.03 [facility] Urobilinogen, UA 0.2 0.2 - 12 mg/dL [facility] Urinalysis macro (dipstick) panel (U)on 06-17-2024 Bilirubin, UA Negative Negative - 4(70) +++ mg/dL [facility] Blood, UA Negative Negative - 50 Roberto/mcL [facility] Clarity, UA Clear [facility] re Color, UA Yellow [facility] Glucose, UA Negative Negative - 1999(110) ++++ mg/dL [facility] Interpretation and review of laboratory results Abnormal [facility] Ketones, UA Negative Negative - 160(16) ++++ mg/dL [facility] Leukocytes, UA Negative Negative - 500+++ Christian/mcL [facility] Nitrite, UA Negative Negative - Positive [facility] pH, UA 6 5 - 9 [facility] e Protein, UA Positive Negative - 1999(20) ++++ mg/dL [facility] Comment on above: 100 Spec Grav, UA 1.03 1 - 1.03 [facility] Urobilinogen, UA 0.2 0.2 - 12 mg/dL [facility] ALL CBC WITH AUTO DIFFon BASOPHILS ABSOLUTE AUTO 0.0 [facility] Basophils/100 WBC (Bld) 0.4 % 0.2 - 2.0 % [facility] Eosinophils/100 WBC (Bld) 1.1 % 0.9 - 7.0 % [facility] Erythrocyte distribution width (RBC) [Ratio] 14.2 % 11.0 - 15.0 % [facility] Hematocrit (Bld) [Volume fraction] 39.3 % 36.0 - 48.0 % [facility] e Hemoglobin (Bld) [Mass/Vol] 12.8 g/dL 12.0 - 16.0 g/dL [facility] IMMATURE GRANULOCYTES ABS AUTO 0.02 [facility] Immature granulocytes/100 WBC (Bld) 0.3 % 0.0 - 0.5 % [facility] Interpretation and review of laboratory results Abnormal [facility] LYMPHOCYTES ABSOLUTE AUTO 1.6 [facility] Lymphocytes/100 WBC (Bld) 21.5 % 20.5 - 60.0 % [facility] MCH (RBC) [Entitic mass] 26.8 pg 26.7 - 34.0 pg [facility] MCHC (RBC) [Mass/Vol] 32.6 g/dL 29.9 - 35.2 g/dL [facility] MCV (RBC) [Entitic vol] 82.2 fL 81.0 - 99.0 fL [facility] MONOCYTES ABSOLUTE AUTO 0.4 [facility] Monocytes/100 WBC (Bld) 5.1 % 1.7 - [...] Abnormal [facility] Preg Test, Ur Positive [facility] Cytology Cervical or vaginal smear or scraping studyOrdered By: Sheila Flowers on 04-07-2024 [facility] Coding Summary.on 04-07-2022 Coding Summary. CD:[id number]:[id number] G h0bWw+PGhlYWQ+UH2EEGJ vQ22mkOQmxH1LF4uQKS3K OVRDGHJDZT6EAZ0nuEV7J HreX1BtlpRw CjqvyMUdJC37FUq8GLZ4z VbkIAxmmS6vxCPsL8d7Lu IgPJ81gF18FHgpGVHiCjG 3LjZpbjsgbWFy S7osUbUwtYZuMmv+PHRhY mxlIHdpZHRoPScxMDAlJy MayWysAM7sJd3lSJHaPJT vbGxhcHNlOiBj t9kxRRJqTIcaEB2mtRrcS 0YlnWU8OTEjz0p4Mi60hM I+GOKuESQ0kMnjXPquj15 9CvXen4tnXWM6 pRKnOSvjPYE6J79xa5V7Y VHuQKDeBUG7xZU9aZ3zsC vnwnwoF7XduHOeZtB3FZZ 0fJKmrT1vlEtp ysrnpO4gLuw+E15ICV2UK TSDKM7KLhc8R1FfVhftnL I+AM04PTZtKP66bYXwnGJ yi7cwgTw4CxVz EZGcRNO1iAuxTSznw2CiH CVmM43wiWIby2Y7ZQUcpV updHJsJmPnbKK7qH2hWCh wizeoc4htaepf Ihjjw1jqfy32rR41I73fT KtaZNWlAID1BTLlFDCtdZ zget7jyH3fBj4+HJjjv5u qt3spzYc7SaDx XFWuqcZbdWknKPO6p7QuO m26X3SxoYjlc8KgKee6na 72tRZvz2X5eSA9LMcuCJU kuC9nNTdkAcX4 OJLqVxVfnK43kQGhOMgnB w4ayXspcGpwOB1bPOPutp ioNOLzhE0oRWJhjUXkdOd rBZ4sVZFafueg f722StAcAPM9NNEnqJXdU 8ZmrT6zQsSkMVHtFSKxH9 HnyJDaOMfjE684RHouMmB 3XIVdmxDaR2Aq CGYcxHpzFiK2o6I4Dy9Ey 7HumqpkJRK0BJguKXN5Hh T8ZqGjEeG8R6FeGkm3FUK dmWmxIU6hU8Gt WRHlicgfculucHY8ZOVdE HWbgF28pKUqFGoqNu5dm8 P9i875JFAgMYCjjK13Iz7 udDogMTBwdCBU iL8tjzgdb3dutlcuFjWlJ CUrVSb6DUx0CBAqnGhbTj IdCQS0RhA2ZOE9qQYcrK9 hjNospbbacX1q Oyc+O04ruD7hCZM6KYF0z jjePOEhodYbIR36IN42G4 RyPjwvdGFibGU+PGRpdiB vuSefNE2zRmMt w5swy3NwSCwlV8JlHLLlL HrpYnh1GBLcDLQ7aPV1nE 2hFTDhWRkaj1C3zDE8D5V gusPzdz1pg0nk DOUdXNdnM62nfNOul4L0W KBxwDW5XSKnmAynKoXqiB 93Oyc+EOKshBxhx4TaTio av9sxk5aggQq5 JcXsIDFhjnWrqAkmQNU2a 0LwSp74R08dYXhdYZMkQM AjHAThPDUjgNugow9oqC1 wIi8+PGNvbCB3 jGZ8wK0vSOGqVjN1HWanH 083GwNgsJSwTixtr2jwn9 ybvKd7ZsEdOGButoAvqOw zHMA0a6XqGv16 G56zCVdmSJAuUNSiZNDdA XBvfUtlzw0ajP3cVy7+PC 4we3ybsc05yD07tQY+PHR aWBS3eIyoUJwu GQAjeX5pOHygNhU0GIPgL fLzdO51wMGhJKnxPq8gaS mzdFofIE2iKPIuchnke67 4OwWjr3esIDFc tFXaXUwoDKN6A02pk4Z3W UJhNCIdHQA4fNQ7eS6aoE lnbjogbGVmdDsgdmVydGl jVFmaBCnnM680 IHRvcDsnPlBhdGllbnQgT rGhOVd9V4DkSwh1PZJplW mnKE8hoVTfCNzeCc6xeKd omFujXX9sRACt dnoen111WqDhf0skHEPvl FTqWYabFCC5L54ip9Q2QK GwYNUuZJA8oBK8cB7waPg nbjogbGVmdDsg wjJgwBvvGOyzIJgmH349U HRvcDsnPkJpcnRoIERhdG D1CH37SX94jUTim1L7aSF 0S0QyRFVtjqpr tkcgfMC2IZXtQTTkrE14J d8adBnwYz6iQBAzQJO3GA EoeVTpV1LfgF9bGaFlISE uCPTeH2SgmPWs VDyjO608SBrvJoU8DUUkw wKvL7FrJZJazPwfChR6m9 T6Cp3JM4W7LD00CF95vUC qd5J1oWT7E0Gs CUPqtwkdnrdanNC4RYKkY XBzlM55Pj6raCagDi7nTI JwOEQ7SUNiyRIjT3PabZ5 yOiAjMDAwMDAw J3QvjNCtIFthJ509XGgbW eI0CYJzhdWnJ4PjBKTzrK eiArK2b5L6Xj9MBQg1TE9 4TW57gASnu6Y9 wYM7L5FsQFVtczjzcwxtd IG2NZOmLZVzhI71Dz8zjU ykCb8vZAEwPNW1UVNcdBV eE1XevI2qFvQf UOMyTYCtT4DqkIMqEZypJ 184CQmjFkW1WIOxrgUdY9 ZbMRGowYuiHqS4g2L5Bg9 JGTAnCB45ZXD7 mLV9YK86XS51Q0JmWfmkq GFibGU+PHRhYmxlIHdpZH RoPScxMDAlJyBzdHlsZT0 xVf9nNIThPHYs yRxmhIYmBgYwb8aaNDPzK EwdOE1tnPanI1HomKJ8IM Flk3v7Du06I00oG0PtbDS +TJAnbTV5tHV2 hA1tYvNaSmQ4BTajW169T aGjaNZbYswcn6pbx8ygeD r2UgR8JFYlqvNzlGxuCWP 8l7CfNw75M50c IHdpZHRoPSIxNSUiIHZhb Evuui8mkY4cYm1+PGNvbC N1uIW3hY8zSaXyLkK8UUp pC550DgQydYIw Mfgyo1uzo0eflVe8SiMjB PVxtjLfyRpnBIT5y2AvYx 26T5BndMqmc5QgKjc8sq1 6vUTiu5I2dXA0 P3WwRGTowppvgCTodGyyB U5nTBEcrdwwQSBrgQ3tRE MjT3w9DgOlSzW5QDmzG1M kiqE7ZXLwxKAi XMjmQYB3S50lm5M4EZHnI NOnDKN7wCU5tB2erUlcjf ogbGVmdDsgdmVydGljYWw zOAtnN783TTYv nRhaZZJqpA9wNUVzhMInb BopHJ9sAFMjytseAtUVJL BQLCBIQUxFWSBOSUNPTEU 8K7BeRvi4SKOv oGuvZC6okTJwKQsdWz6aw RmbrDoxRF7fQBEmjlitXZ UqrB0cNVYijOIxjQfuGE8 vLXLxnffhx500 FlMmCQJ3WESliBPeK6Jda W1nIzFcZIBtWCPwR5LgdH OhKPewM282FWdlAaT9DIK jdxPyS8WkLEOm iDinAyZ1h2U6Em0hUX1gB S9vLDy0RF66LQ48rMOyy9 D2gDU7H1MaUJDosjahpiu kgIQ9NGEjWAKs iB06tLWpAAnkAb1hh9Y0w 622MKEbVJQneA84Nx2zzW okJAZowQWJqX8qyukmk0v vcjogIzAwMDAw CTe7WAu8VGFupRcgUlWiY SV2OlE7JHE6bQVmiA7wfR bumjmxeF6qTwv+MjQgWWV kepC1W5FrZhy6 HTVkgRfmEB9exLSgBUouQ a9xoFuudHyyOR0kAYZsem rdZSNotW8dGAZzmTVswHy kPH4lWKEvezmr b738WsUoQXM7IAThzIKxL 6ZgiH7sVfPnCQJaQCIvF3 QsiEBiFGzfT936TTvbPuV 4NMCyvfJkQ0Ab XCWrmNieWmZ5h2T4Cm0LQ V1lwRA0P7JsLby4FSAkcD zqBP2uyQMcFAvkRl0onKx deYyfTW0dDGWh vmxyHPXojZ4wOLLszGXdw RbfJV4wCAMeofxkv771Rp MzFZC2KCVjcPCwL2QjuG7 yOiAjMDAwMDAw Z8XudRKbNPygT627XWicE hR8SCKmupWeK7UyILNfoF hrQtC8y6H9Yk2HkAHrUWP yRG26UJ71RZ38 Y9LpKcqfuVHxhLA+PHRhY mxlIHdpZHRoPScxMDAlJy VxbDaiCH7rOt1eYQZiJKV vbGxhcHNlOiBj a2clGGNqNKrpJG5wjYurY 5GykXO7SISqa9w2Yf60J4 2xW9KquTP+HBYciJK0tUT 9zY4wYsTbPeB0 GUtyN551TiXxaMZzQsnph 1rhg2rkvIw7HrBwXHIrih TppUouRRA8g3TuRe67P02 sIHdpZHRoPSIy JTKmUKRvlUtpkr0nsJ5hL i8+XEGyaEV9bLY9dN1jVu ExWvJ2IZbeT423ReBixWB hYbwrJ27yC5Yb dXA+GEOuMmp1NNIgaFfoA J1vtBJaUTpiVk0wHAD9Nz NfScNvUAktJ0KiBGUvtsc mmwzgaLC2SKCi GYKqiK49Dw3snEuxQt0qC OAoKAV4MBNtmSQrE6WewM 6tOrBoRREaZVEtQ7RfrVB uDSndM316YUrb IqF2VCLkoxVxJ4EjZWZub AwxQuN1l0C4If5QhNfeeZ GaPS2iWcNiUTt6Z5DlHvg 4DFKtwSrpMY8j ePPsYQmjPa2qtZjufHgkJ X0aXPSwkitpz397MjUdk0 bcAUQwgEOfWHkeTMD9V94 uu5K2THIwATDi WOE6fTA6mD3abVdlxinsd GVmdDsgdmVydGljYWwtYW taM129JTLvsIxmHsPKOsp 7E9JyFgh1VATa rMfhAP0wyFKsBQdzJj2zp YerdOivYC2fAQBbnrqsp2 35VnPdl3asSWUlqSGsGVr gEYK4Z28vr6W2 BSWpVBKkTUC4uXJ7hI3ll GlnbjogbGVmdDsgdmVydG evRKlrSYvrC304CJIhmCh pKf1PTdl5V8If Ney3MJFdlAmdRO0fbNZcT JqyUa0ybKriqEbkWH2pTJ Aticztq178CgRdx4leVKX wcHQgVGltZXM7 B99ez1Q8QYFbSDUlGUC3w LC0vH6aeDesfrlwcKDlvG pklbGstPhzYChtWYfbC74 6IHRvcDsnPlBh eWVyOjwvdGQ+NJ29mz34S 7UyFmpvWqm5PABxZWD9nF U7hG6bVXYgIHwix5F7lDL 8B6QtttMvyi5d b2xs (more content not included)... [facility] XR Ankle 3+ Views Lefton XR Ankle [...] Howell M.D. Transcribed by: JENN Technologist: STEVEN [facility] Consent for Treatmenton Consent for Treatment [id number] .00CD:127 [facility] Physician Orderon 04-03-2022 Physician Order [id number] 1.00CD:127 Normal [facility] XR ANKLE LT MIN 3 Von 2021 XR ANKLE LT MIN 3 V EXAM: XR ANKLE LT DE N 3 V, XR FOOT LT MIN [...] authenticated by: MARQUIS HENSON Date: 2022-03-11 16:04 [facility] PAP ACOG PANEL 2: 21 to 29on 10-24-2021 . . Normal [facility] Comment on above: Performed By: #### [id number] #### [facility] [address] [place] [address] Dr. Aura Griffiths Age Gdln ACOG Testing 21-29 [facility] Comment on above: Performed By: #### [id number] #### [facility] [address] [place] [address] Dr. Aura Griffiths DIAGNOSIS: Comment [facility] Comment on above: Result Comment: NEGA TIVE FOR INTRAEPITHELIAL LESION OR MALIGNANCY. Performed By: #### [id number] #### [facility] [address] [address] [address] Aura Griffiths Methodology: Comment [facility] Comment on above: Result Comment: This liquid based ThinPrep(R) pap test was screened with the use of an image guided system. Performed By: #### [id number] #### [facility] [address] [place] [address] Dr. Aura Griffiths Note: Comment [facility] Comment on above: Result Comment: The Pap smear is a screening test designed to aid in the detection of premalignant and malignant conditions of the uterine cervix. It is not a diagnostic procedure and should not be used as the sole means of detecting cervical cancer. Both false-positive and false-negative reports do occur. . Performed By: #### [id number] #### [facility] [address] [place] [address] Dr. Aura Griffiths Performed by: Comment Normal [facility] Comment on above: Result Comment: Radha Trevino, Supervisor Of Research (ASCP) Performed By: #### [id number] #### [facility] [address] [place] [address] Dr. Aura Griffiths Reflex Criteria: Comment Normal [facility] Comment on above: Result Comment: The HPV DNA reflex criteria were not met with this specimen result therefore, no HPV testing was performed. . Performed By: #### [id number] #### [facility] [address] [place] [address] Dr. Aura Griffiths Specimen adequacy: Comment Normal [facility] Comment on above: Result Comment: Sati sfactory for evaluation. Endocervical and/or squamous metaplastic cells (endocervical component) are present. Performed By: #### [id number] #### [facility] [address] [place] [address] Dr. Aura Griffiths Vital Signs Date Time Vital Sign Value Performing Clinician Aleksandr dobbs 10-23-2024 11:16-0500 Body mass index (BMI) [Ratio] 45.66 kg/m2 Karla OSPINA Work Phone: [facility] 10-23-2024 11:16-0500 Body weight 120.66 kg Karla OSPINA Work Phone: [facility] 10-23-2024 11:16-0500 Diastolic blood pressure 80 mm[Hg] Karla OSPINA Work Phone: [facility] 10-23-2024 11:16-0500 Systolic blood pressure 124 mm[Hg] Karla OSPINA Work Phone: [facility] 10-09-2024 10:43-0500 Body mass index (BMI) [Ratio] 46.17 kg/m2 Carrie Payan DO Work Phone: [facility] 10-09-2024 10:43-0500 Body weight 122.02 kg Carrie Ora DO Work Phone: [facility] 10-09-2024 10:43-0500 Diastolic blood pressure 70 mm[Hg] Carrie Ora DO Work Phone: [facility] 10-09-2024 10:43-0500 Systolic blood pressure 120 mm[Hg] Carrie Ora DO Work Phone: [facility] 09-25-2024 08:58-0500 Body mass index (BMI) [Ratio] 45.49 kg/m2 Carrie Ora DO Work Phone: [facility] 09-25-2024 08:58-0500 Body weight 120.2 kg Carrie Ora DO Work Phone: [facility] 09-25-2024 08:58-0500 Diastolic blood pressure 72 mm[Hg] Carrie Ora DO Work Phone: [facility] 09-25-2024 08:58-0500 Systolic blood pressure 122 mm[Hg] Carrie Ora DO Work Phone: [facility] 2024 09:48-0500 Body mass index (BMI) [Ratio] 44.97 kg/m2 Karla OSPINA Work Phone: [facility] 2024 09:48-0500 Body weight 118.84 kg Karla OSPINA Work Phone: [facility] 2024 09:48-0500 Diastolic blood pressure 70 mm[Hg] Karla Tania PA Work Phone: [facility] 2024 09:48-0500 Systolic blood pressure 120 mm[Hg] Karla Burns PA Work Phone: [facility] 08-14-2024 11:20-0500 Body mass index (BMI) [Ratio] 44.53 kg/m2 Carrie Ora DO Work Phone: [facility] 08-14-2024 11:20-0500 Body weight 117.66 kg Carrie Ora DO Work Phone: [facility] 08-14-2024 11:20-0500 Diastolic blood pressure 82 mm[Hg] Carrie Ora DO Work Phone: [facility] 08-14-2024 11:20-0500 Systolic blood pressure 124 mm[Hg] Carrie Ora DO Work Phone: [facility] 07-17-2024 10:48-0500 Body mass index (BMI) [Ratio] 45.28 kg/m2 Carrie Ora DO Work Phone: [facility] 07-17-2024 10:48-0500 Body weight 119.66 kg Carrie Ora DO Work Phone: [facility] 07-17-2024 10:48-0500 Diastolic blood pressure 70 mm[Hg] Carrie Ora DO Work Phone: [facility] 07-17-2024 10:48-0500 Systolic blood pressure 120 mm[Hg] Carrie Ora DO Work Phone: [facility] 06-17-2024 10:48-0400 Body mass index (BMI) [Ratio] 44.99 kg/m2 Carrie Ora DO Work Phone: [facility] 06-17-2024 10:48-0400 Body weight 118.9 kg Carrie Ora DO Work Phone: [facility] 06-17-2024 10:48-0400 Diastolic blood pressure 70 mm[Hg] Carrie Ora DO Work Phone: [facility] 06-17-2024 10:48-0400 Systolic blood pressure 120 mm[Hg] Carrie Ora DO Work Phone: [facility] 05-16-2024 09:16-0400 Body mass index (BMI) [Ratio] 46 kg/m2 Nom Nurse [facility] 05-16-2024 09:16-0400 Body weight 121.56 kg [facility] Nurse [facility] 05-16-2024 09:16-0400 Diastolic blood pressure 70 mm[Hg] Noms Nurse [facility] 05-16-2024 09:16-0400 Systolic blood pressure 120 mm[Hg] Noms Nurse [facility] Encounters Encounter Date Encounter Type Care Provider Facility Start: 10-23-2024 End: 10-23-2024 Bamboo flowsheet Karla OSPINA Work Phone: [facility] Start: 10-23-2024 End: 10-23-2024 Bamboo flowsheet Karla OSPINA Work Phone: [facility] Start: 10-23-2024 End: 10-23-2024 Clinisync Result Encounter Carrie Ora DO Work Phone: [facility] Unsolicited Start: 10-23-2024 End: 10-23-2024 flow sheet Karla OSPINA Work Phone: [facility] Comment on above: Third trimester preg charley; 31 weeks gestation of Start: 10-23-2024 End: 10-23-2024 ambulatory KARLA BURNS Not Available Start: 10-16-2024 End: 10-16-2024 Clinisync Result Encounter [...] Result Encounter Carrie Ora DO Work Phone: [facility] External Department Unsolicited Start: 09-25-2024 End: 09-25-2024 Bamboo flowsheet Carrie Ora DO Work Phone: [facility] Start: 09-25-2024 End: 09-25-2024 Bamboo flowsheet Carrie Ora DO Work Phone: [facility] Start: 09-25-2024 End: 09-25-2024 flow sheet Carrie Ora DO Work Phone: [facility] Comment on above: Second trimester pre gnancy; 27 weeks gestation of ; Elevated glucose tolerance test Start: 09-25-2024 End: 09-25-2024 ambulatory CARRIE ORA Not Available Start: 2024 End: 2024 Bamboo flowsheet Karla OSPINA Work Phone: [facility] Start: 2024 End: 2024 Bamboo [...] flow sheet Carrie Ora DO Work Phone: [facility] Comment on above: Second trimester [...] Available Start: 03-11-2022 End: 03-11-[address] CARREI PAYAN Facility:[facility] Start: 10-18-2021 End: 10-18-[address] CARRIE PAYAN Facility:[facility] Procedures Date Procedure Procedure Detail Performing Clinician Start: 10-23-2024 OB BPP W NON-STRESS Carrie Ora DO Work Phone: Start: 10-23-2024 Urnls dip stick/tabl et rgnt non-auto w/o micrscp Karla Burns PA Work Phone: Start: 10-16-2024 US OB BPP W NON-STRESS Carrie Ora DO Work Phone: Start: 10-09-2024 Urnls dip stick/tabl et rgnt non-auto w/o micrscp Carrie Ora DO Work Phone: Start: 10-07-2024 GLUCOSE TOLERANCE 3 HOUR Carrie Ora DO Work Phone: Start: 09-25-2024 Urnls dip stick/tabl et rgnt non-auto w/o micrscp Carrie Roa DO Work Phone: Start: 2024 Urnls dip [...] Treatment Date Care Activity Detail Author Start: 11-06-2024 End: 11-06-2024 Patient encounter procedure 11/06/2024 1:50 PM EST Routine [facility] [address] [place] [address] [place] [address] [place] [address] [facility] Start: 10-23-2024 End: 10-23-2024 Patient encounter procedure [facility] Comment on above: Arrived Start: 10-09-2024 End: 10-09-2025 US biophysical profile w non stress test US biophysical profile w non stress test Imaging Routine Excessive growth affecting management of , antepartum, single or unspecified fetus Expected: 10/09/2024 (Approximate), Expires: 10/09/2025 [facility] Work Phone: Comment on above: Expected: 10/09/2024 (Approximate), Expires: 10/09/2025 Start: 10-09-2024 End: 10-09-2025 US for US OB follow up transabdominal approach Imaging Routine Excessive growth affecting management of , antepartum, single or unspecified fetus Expected: 10/09/2024, Expires: 10/09/2025 [facility] Comment on above: Expected: 10/09/2024 , Expires: 10/09/2025 Start: 10-09-2024 End: 10-09-2024 Patient encounter procedure 10/09/2024 10:40 AM EST Routine [facility] [address] [facility] [id number] Carrie Payan DO [address] [place] [address] [facility] Start: 10-09-2024 End: 10-09-2024 Professional / ancillary services management 10/09/2024 10:00 AM EST Ancillary Procedure [facility] [address] [facility] [place] [id number] [facility] Start: 09-25-2024 End: 09-25-2025 Measurement of glucose 3 hours after glucose challenge for glucose tolerance test Glucose tolerance, 3 hours Lab Routine Elevated glucose tolerance test Expected: 09/25/2024 (Approximate), Expires: 09/25/2025 [facility] Comment on above: Expected: 09/25/2024 (Approximate), [...] EST Ancillary Procedure [facility] [address] [facility] [place] [address] [facility] Start: 07-17-2024 End: 09-16-2024 [...] anatomic survey Expected: 07/17/2024 (Approximate), Expires: 07/17/2025 [facility] Comment on above: Expected: 07/17/2024 (Approximate), Expires: 07/17/2025 Start: 07-15-2024 End: 07-15-2024 Patient encounter procedure 07/15/2024 10:50 AM EST Routine [facility] [address] [facility] [place] [id number] Carrie Payan, [address] [facility] [place] [address] [facility] Start: 06-17-2024 End: 06-17-2024 [...] gestational age Expected: 05/16/2024 (Approximate), Expires: 05/16/2025 [facility] Healthcare Comment on above: Expected: 05/16/2024 (Approximate), Expires: 05/16/2025 Start: 05-16-2024 End: 05-16-2025 US Pelvis transvaginal US OB transvaginal Imaging Routine Missed menses Expected: 05/16/2024 (Approximate), Expires: 05/16/2025 [facility] Comment on above: Expected: 05/16/2024 (Approximate), Expires: 05/16/2025 Bacteria identified in Urine by Culture Urine culture Microbiology Routine Missed menses Ordered: 05/16/2024 [facility] Comment on above: Ordered: 05/16/2024 Bacteria identified in Urine by Culture Urine culture Microbiology Routine UTI symptoms Ordered: 2024 [facility] Work Phone: Comment on above: Ordered: 2024 CBC W Auto Different ial panel - Blood CBC and differential Lab Routine Missed menses Ordered: 05/16/2024 [facility] Comment on above: Ordered: 05/16/2024 CHLAMYDIA TRACHOMATI S (GENITO/STI) CHLAMYDIA TRACHOMATIS (GENITO/STI) Lab Routine Exposure to STD Ordered: 07/17/2024 [facility] Comment on above: Ordered: 07/17/2024 Hemoglobin A1c/Hemoglobin.total in Blood Hemoglobin A1c Lab Routine Missed menses Ordered: 05/16/2024 [facility] Comment on above: Ordered: 05/16/2024 Hepatitis B virus surface Ag [Presence] in Serum or Plasma by Immunoassay Hepatitis B surface antigen Lab Routine Missed menses Ordered: 05/16/2024 [facility] Comment on above: Ordered: 05/16/2024 Hepatitis C virus Ab [Presence] in Serum or Plasma by Immunoassay Hepatitis C antibody Lab Routine Missed menses Ordered: 05/16/2024 [facility] Comment on above: Ordered: 05/16/2024 HIV-1/HIV-2 antigen/antibody combination immunoassay HIV-1 and HIV-2 antibodies Lab Routine Missed menses Ordered: 05/16/2024 [facility] Comment on above: Ordered: 05/16/2024 Neisseria gonorrhoea e DNA [Presence] in Unspecified specimen by XIOMARA with probe detection Neisseria gonorrhea DNA probe, direct Lab Routine Exposure to STD Ordered: 07/17/2024 [facility] Comment on above: Ordered: 07/17/2024 Reagin Ab [Presence] in Serum by RPR RPR Lab Routine Missed menses Ordered: 05/16/2024 [facility] Comment on above: Ordered: 05/16/2024 Rubella antibody, IgG Rubella an tibody, IgG Lab Routine Missed menses Ordered: 05/16/2024 [facility] Comment on above: Ordered: 05/16/2024 SURESWAB(R) ADVANCED VAGINITIS PLUS, TMA SURESWAB(R) ADVANCED VAGINITIS PLUS, TMA Pathology and Cytology Routine Vaginal discharge Ordered: 07/17/2024 [facility] [employer] Work Phone: Comment on above: Ordered: 07/17/2024 Payers Date Payer Category Payer Unknown [id number] 2023 [employer] Blue Shield [id number] 2023 Unknown BCBS BCBS xxxxxx [id number] 2023-Present [phone] [address] [place] [address] [id number] 2023 Unknown [id number] 1997 Unknown [id number] 93 1997 Unknown [id number] 93 1997 Unknown [id number] 259 1997 Unknown [id number] 259 1997 Unknown [id number] [id number] 259 1997 Unknown [id number] [id number] 259 1997 Unknown [id number] [id number] 259 1997 Unknown [id number] [id number] 259 1997 Unknown [id number] [id number] 259 1997 Unknown [id number] [id number] 259 1997 Unknown [id number] [id number] 259 1997 Unknown [id number] 259 1959 Private Health Insurance [facility] [id number] 1959 Unknown [id number] Social History Date Type Detail Facility Start: 07-31-2023 Tobacco smoking stat [facility] Never smoked tobacco [facility] Start: 07-31-2023 Tobacco use and exposure Smokeless t obacco non-user [facility] Start: 05-16-2024 End: 10-09-2024 Alcoholic beverage intake Lifetime non-drinker (finding) [facility] Start: 07-31-2023 End: 04-07-2024 History of Social function [facility] Start: 07-31-2023 End: 04-07-2024 Tobacco use panel [facility] Start: 03-28-2024 [facility] Start: 1995 Sex assigned at Female N [facility] Start: 01-23-2023 Gender identity Identifies as female gender (finding) [facility] Clinical Notes 05-16-2024 to 10-23-2024 BHAVESH Javier - 10/23/2024 10:50 AM Scarlet Dickens LPN - 10/09/2024 10:40 AM Scarlet Dickens LPN - 09/25/2024 9:00 AM BHAVESH Mares - 2024 9:30 AM EST Note Date & Type Note Facility 10-23-2024 History of Presen t illness Narrative Reason [...] Morbid obesity with BMI of 40.0-44.9, adult ([facility]) Negative test On Depo-Provera for contraception HISTORY PAST MEDICAL HISTORY SOCIAL HISTORY Past Medical History: Diagnosis Date Depression screening Encounter for gynecological examination (general) (routine) without abnormal findings Family planning Insulin resistance Morbid obesity with BMI of 40.0-44.9, adult ([facility]) Negative test On Depo-Provera for [...] Exam Constitutional: Appearance: Normal appearance. She is normal weight. HENT: Head: Normocephalic. Cardiovascular: Rate and Rhythm: Normal rate. Pulses: Normal pulses. Pulmonary: Effort: Pulmonary effort is normal. Breath sounds: Normal breath sounds. Abdominal: Palpations: Abdomen is soft. Musculoskeletal: General: Normal range of motion. Neurological: General: No focal deficit present. Mental Status: She is alert and oriented to person, place, and time. Psychiatric: Mood and Affect: Mood normal. Behavior: Behavior normal. Thought Content: Thought content normal. Judgment: Judgment normal. Vitals and nursing note reviewed. Vitals: Estimated body mass index is 45.66 kg/m as calculated from the following: Height as of 01/24/23: 5' 4 . Weight as of this encounter: 266 lb. BP: 124/80 Patient's last menstrual period was 03/14/2024. ASSESSMENT & PLAN ICD-10-CM 1. Third trimester Z34.93 POCT urinalysis dipstick manually resulted 2. 31 weeks gestation of Z3A.31 Return OB: Patient presents today for a routine obstetrics appointment. Patient is currently 31w6d . Patient states she is doing well but has complaints of being tired due to current . Patient has verbalizes frequent movement. labor precautions was discussed/given and patient was instructed to perform kick counts three times a day. Orders Placed This Encounter Procedures POCT urinalysis dipstick manually resulted Follow Up: Patient is to return to office in 2 week for routine OB appointment. Documented by BHAVESH Javier on behalf of: BHAVESH Javier documented in this encounter [facility] 10-09-2024 History of Presen t illness Narrative [...] Morbid obesity with BMI of 40.0-44.9, adult ([facility]) Negative test On Depo-Provera for contraception HISTORY PAST MEDICAL HISTORY SOCIAL HISTORY Past Medical History: Diagnosis Date Depression screening Encounter for gynecological examination (general) (routine) without abnormal findings Family planning Insulin resistance Morbid obesity with BMI of 40.0-44.9, adult ([facility]) Negative test On Depo-Provera for [...] nursing note reviewed. Exam conducted with a training development manager present. Vitals: Estimated body mass index is [...] Carrie Payan DO documented in this encounter [facility] 09-25-2024 History of Presen t illness [...] Morbid obesity with BMI of 40.0-44.9, adult ([facility]) Negative test On Depo-Provera for [...] nursing note reviewed. Exam conducted with a training development manager present. Vitals: Estimated body mass index is [...] Carrie Payan DO documented in this encounter [facility] 2024 History of Presen t illness [...] Morbid obesity with BMI of 40.0-44.9, adult ([facility]) Negative test On Depo-Provera for contraception HISTORY PAST MEDICAL HISTORY SOCIAL HISTORY Past Medical History: Diagnosis Date Depression screening Encounter for gynecological examination (general) (routine) without abnormal findings Family planning Insulin resistance Morbid obesity with BMI of 40.0-44.9, adult ([facility]) Negative test On Depo-Provera for [...] nursing note reviewed. Exam conducted with a training development manager present. Vitals: Estimated body mass index is [...] of: BHAVESH Javier documented in this encounter [facility] 08-14-2024 History of Presen t illness [...] Morbid obesity with BMI of 40.0-44.9, adult ([facility]) Negative test On Depo-Provera for contraception HISTORY PAST MEDICAL HISTORY SOCIAL HISTORY Past Medical History: Diagnosis Date Depression screening Encounter for gynecological examination (general) (routine) without abnormal findings Family planning Insulin resistance Morbid obesity with BMI of 40.0-44.9, adult ([facility]) Negative test On Depo-Provera for [...] nursing note reviewed. Exam conducted with a training development manager present. Vitals: Estimated body mass index is [...] Carrie Payan DO documented in this encounter [facility] 07-17-2024 History of Presen t illness [...] Morbid obesity with BMI of 40.0-44.9, adult ([facility]) Negative test On Depo-Provera for contraception HISTORY PAST MEDICAL HISTORY SOCIAL HISTORY Past Medical History: Diagnosis Date Depression screening Encounter for gynecological examination (general) (routine) without abnormal findings Family planning Insulin resistance Morbid obesity with BMI of 40.0-44.9, adult ([facility]) Negative test On Depo-Provera for [...] nursing note reviewed. Exam conducted with a training development manager present. Vitals: Estimated body mass index is [...] Carrie Payan DO documented in this encounter [facility] 06-17-2024 History of Presen t illness [...] Morbid obesity with BMI of 40.0-44.9, adult ([facility]) Negative test On Depo-Provera for contraception HISTORY PAST MEDICAL HISTORY SOCIAL HISTORY Past Medical History: Diagnosis Date Depression screening Encounter for gynecological examination (general) (routine) without abnormal findings Family planning Insulin resistance Morbid obesity with BMI of 40.0-44.9, adult ([facility]) Negative test On Depo-Provera for [...] nursing note reviewed. Exam conducted with a training development manager present. Vitals: Estimated body mass index is [...] or undercooked meat, and stay away from [facility]. Patient has been consulted regarding any [...] Karla Burns PA-C documented in this encounter [facility] 05-16-2024 History of Presen t illness [...] Morbid obesity with BMI of 40.0-44.9, adult ([facility]) Negative test On Depo-Provera for [...] or undercooked meat, and stay away from [facility]. Patient has also been advised to [...] Shannan Peña LPN documented in this encounter [facility] Evaluation note Diagnosis 13 weeks gestation [...] unspecified fetus [facility] this encounter [facility] Diagnosis Third trimester state, incidental 31 weeks gestation of documented in this encounter [facility] Summary Purpose Family History No Family History Records FoundNo Family History Records FoundNo Family History Records Found Advance Directives No Advanced Directives Records FoundNo Advanced Directives Records FoundNo Advanced Directives Records Found Additional Source Comments INFORMATION SOURCE (unrecogn ized section and content) DATE CREATED AUTHOR 04/05/2022 Crystal Rodriguez [facility] DATE CREATED AUTHOR AUTHOR'S ORGANIZ ATION 04/08/2022 [facility] DATE CREATED AUTHOR AUTHOR'S ORGANIZ ATION 10/25/2024 [facility] PSYCHIATRIC Care Teams (unrecognized sec tion and content) Department Of Sociology Chair Relationship Specialty Start Date End Date Karla Ortega MD [address] [place] [phone] PCP - General Family Medicine 01/24/23 Department Of Sociology Chair Relationship Specialty Start Date End Date Karla Ortega MD [address] [place] [phone] PCP - General Family Medicine 01/24/23 Department Of Sociology Chair Relationship Specialty Start Date End Date Karla Ortega MD [address] [place] [phone] PCP - General Family Medicine 01/24/23 Department Of Sociology Chair Relationship Specialty Start Date End Date Karla Ortega MD [address] [place] [phone] PCP - General Family Medicine 01/24/23 Department Of Sociology Chair Relationship Specialty Start Date End Date Karla Ortega MD [address] [place] [phone] PCP - General Family Medicine 01/24/23 Department Of Sociology Chair Relationship Specialty Start Date End Date Karla Ortega MD [address] [place] [address] PCP - General Family Medicine 01/24/23 Department Of Sociology Chair Relationship Specialty Start Date End Date Karla Ortega MD [address] [place] [phone] PCP - General Family Medicine 01/24/23 Department Of Sociology Chair Relationship Specialty Start Date End Date Karla Ortega MD [address] [place] [address] PCP - General [facility] Medicine 01/24/23 Department Of Sociology Chair Relationship Specialty Start Date End Date Karla Ortega MD [address] [place] [address] PCP - General Family Medicine 01/24/23 Department Of Sociology Chair Relationship Specialty Start Date End Date Karla Ortega MD [address] [place] [address] PCP - General Family Medicine 01/24/23 Department Of Sociology Chair Relationship Specialty Start Date End Date Karla Ortega MD [address] [place] [phone] PCP - General Family Medicine 01/24/23 Reason [...] BE BASED ON THE PRIMARY CLINICAL RECORDS. [employer] provides no warranty or guarantee of the accuracy or completeness of information in this document.
[2024-10-27 16:04] VITALS: BP 115/72; PULSE 113
== END 2024-10-27 16:28 | disposition home or self-care (01) ==
LOC: FBCO 00:29 → FBC 15:58
PROVIDERS: Visit Provider Obstetrics & Gynecology
DX: O36.63X0 Maternal care for excessive fetal growth, third trimester, not applicable or unspecified (principal); Z3A.32 32 weeks gestation of pregnancy
CPT/HCPCS: 59025

== ENCOUNTER 2024-10-30 00:40 | Outpatient (OUT) | payer BC, SELFPAY ==
--- OUTSIDE RECORDS SUMMARY | 2024-10-30 00:44 | XMS_ITS | CCD ---
Author Organization [facility] Care Team Providers Care District Wildlife Manager Name Role Phone DR CARRIE PAYAN Primary Care Unavailable ANGÉLICA NARAYANAN Attending Unavailable ANGÉLICA NARAYANAN Consulting Unavailable ANGÉLICA NARAYANAN Admitting Unavailable MARQUIS HENSON Consulting Unavailable DR CARRIE PAYAN Consulting Unavailable DR CARRIE PAYAN Primary Care Unavailable DR CARRIE PAYAN Admitting Unavailable DR CARRIE PAYAN Attending Unavailable Karla Ortega MD Primary Care Provider [phone] CARRIE PAYAN Attending Unavailable KARLA BURNS Attending [...] Facility OB BPP W NON-STRESS on 10-23-2024 [place] [address] Ultrasound Report Signed Patient: KAREEN FORMAN MR#: [id number] : 1995 Acct:[id number] Age/Sex: 29 / F ADM Date: 10/23/24 Loc: US Attending Dr: Carrie Payan D.O. Ordering Physician: Carrie Payan D.O. Date of Service: 10/23/24 Procedure(s): US OB BPP w non-stress Accession Number(s): [id number] cc: KARLA ORTEGA; Carrie Payan D.O. [place] [id number] Patient Name: KAREEN FORMAN MRN: [facility]:[id number] date: 1995 Sex: F Assigned Patient Location: [facility] Current Patient Location: US Accession/Order Number: [id number] Exam Date: 10/23/2024 13:18 Report Date: 10/23/2024 22:17 At the request of: CARRIE PAYAN DO Procedure: US OB BPP w non-stress BPP. Reason for exam: Excessive growth. COMPARISON: BPP 10/16/2024. TECHNIQUE: Transabdominal imaging of the gravid uterus was obtained. FINDINGS: Integrity Consultant reports the BPP is 8 out of 8. JENS measures 13.1 cm. heart rate 161 bpm. US/US OB BPP w non-stress Impression: BPP 8 out of 8. Correlation with NST is recommended. Impression dictated by: Claudio Schuster Jr., D.O.10/23/2024 10:17 PM Dictation Location: [place] [address] Electronically authenticated by: [id number] Y Date: 10/23/2024 22:17 Dictated By: Claudio Schuster M.D. Signed By: 10/23/242218 DD/ 16 TD/TT: Winch Derrick Operator: [facility] Radiology, Radiologist, MD - 10/23/2024 [place] [address] Ultrasound Report Signed Patient: KAREEN FORMAN MR#: [id number] : 1995 Acct:[id number] Age/Sex: 29 / F ADM Date: 10/23/24 Loc: US Attending Dr: Carrie Payan D.O. Ordering Physician: Carrie Payan D.O. Date of Service: 10/23/24 Procedure(s): US OB BPP w non-stress Accession Number(s): [id number] cc: KARLA ORTEGA; Carrie Payan D.O. The [place] [id number] Patient Name: KAREEN FORMAN MRN: [facility]:[id number] date: 1995 Sex: F Assigned Patient Location: [facility] Current Patient Location: US Accession/Order Number: [id number] Exam Date: 10/23/2024 13:18 Report Date: 10/23/2024 22:17 At the request of: CARRIE PAYAN DO Procedure: US OB BPP w non-stress BPP. Reason for exam: Excessive growth. COMPARISON: BPP 10/16/2024. TECHNIQUE: Transabdominal imaging of the gravid uterus was obtained. FINDINGS: Integrity Consultant reports the BPP is 8 out of 8. JENS measures 13.1 cm. heart rate 161 bpm. US/US OB BPP w non-stress Impression: BPP 8 out of 8. Correlation with NST is recommended. Impression dictated by: Claudio Schuster Jr., D.O.10/23/2024 10:17 PM Dictation Location: [employer] Electronically authenticated by: [id number] Y Date: 10/23/2024 22:17 Dictated By: Claudio Schuster M.D. Signed By: 10/23/242218 DD/ 16 TD/TT: Winch Derrick Operator: [facility] Radiology Study observation (narrative) [facility] US OB BPP W NON-STRESS Ordered By: Radiologist Radiology on 10-23-2024 [facility] [employer] Work Phone: Urinalysis macro (dipstick) panel (U)on 10-23-2024 Bilirubin, UA Negative Negative - 4(70) +++ mg/dL [facility] Blood, UA Negative Negative - 50 Roberto/mcL [facility] Clarity, UA Clear [facility] Color, UA Yellow [facility] Glucose, UA Negative Negative - 1999(110) ++++ mg/dL [facility] Interpretation and review of laboratory results Abnormal [facility] Ketones, UA Negative Negative - 160(16) ++++ mg/dL [facility] Leukocytes, UA Trace Negative - 500+++ Christian/mcL [facility] Nitrite, UA Negative Negative - Positive [facility] pH, UA 6.5 5 - 9 [facility] e Protein, UA Negative Negative - 1999(20) ++++ mg/dL [facility] Spec Grav, UA 1.025 1 - 1.03 [facility] Urobilinogen, UA 1.0 0.2 - 12 mg/dL [facility] US OB BPP W NON-STRESS on 10-16-2024 [place] [id number] Ultrasound Report Signed Patient: KAREEN FORMAN MR#: [id number] : 1995 Acct:[id number] Age/Sex: 29 / F ADM Date: 10/16/24 Loc: US Attending Dr: Carrie Payan D.O. Ordering Physician: Carrie Payan D.O. Date of Service: 10/16/24 Procedure(s): US OB BPP w non-stress Accession Number(s): [id number] cc: KARLA ORTEGA; Carrie Payan D.O. [address] [address] Patient Name: KAREEN FORMAN MRN: [facility]:[id number] date: 1995 Sex: F Assigned Patient Location: US Current Patient Location: Accession/Order Number: [id number] Exam Date: 10/16/2024 13:57 Report Date: 10/16/2024 [...] Signed By: 10/16/24 1544 DD/ 1541 TD/TT: Winch Derrick Operator: [facility] Radiology, Radiologist, MD - 10/16/2024 [place] [address] Ultrasound Report Signed Patient: KAREEN FORMAN MR#: [id number] : 1995 Acct:[id number] Age/Sex: 29 / F ADM Date: 10/16/24 Loc: US Attending Dr: Carrie Payan D.O. Ordering Physician: Carrie Payan D.O. Date of Service: 10/16/24 Procedure(s): US OB BPP w non-stress Accession Number(s): [id number] cc: KARLA ORTEGA; Carrie Payan D.O. The [place] [id number] Patient Name: KAREEN FORMAN MRN: [facility]:[id number] date: 1995 Sex: F Assigned Patient Location: US Current Patient Location: Accession/Order Number: [id number] Exam Date: 10/16/2024 13:57 Report Date: 10/16/2024 [...] Signed By: 10/16/24 1544 DD/ 154 TD/TT: Winch Derrick Operator: [facility] Radiology Study observation (narrative) [facility] US OB BPP W NON-STRESS Ordered By: Radiologist Radiology on 10-16-2024 [facility] Work Phone: US OB FOLLOW UP [...] II, MD, PHD at 10-Oct-2024 07:43:20 AM [facility] Normal Not Available Comment on above: Order Comment: US OB SCAN FOR GROWTH Estimated Date of Delivery: 12/19/24 Gestational Age as of 09/25/2024: 27w6d Urinalysis macro (dipstick) panel (U)on 10-09-2024 Bilirubin, UA Negative Negative - 4(70) +++ mg/dL [facility] [employer] Blood, UA Negative Negative - 50 Roberto/mcL [facility] Clarity, UA Clear [facility] re Color, UA Yellow [facility] [employer] Glucose, UA Positive Negative - 2000(110) ++++ mg/dL [facility] [employer] Comment on above: 100 Interpretation and review of laboratory results Abnormal [facility] Ketones, UA Positive Negative - 160(16) ++++ mg/dL [facility] Comment on above: 15 Leukocytes, UA Negative Negative - 500+++ Christian/mcL [facility] Nitrite, UA Negative Negative - Positive [facility] pH, UA 7 5 - 9 [facility] Protein, UA Trace Negative - 1999(20) ++++ mg/dL [facility] Spec Grav, UA 1.025 1 - 1.03 [facility] Urobilinogen, UA 0.2 0.2 - 12 mg/dL [facility] GLUCOSE TOLERANCE 3 HOURon 0 10-07-2024 GLUCOSE TOLERANCE 3 HOUR mg/dL [facility] Comment on above: GLU FAST 83 (<95) Co l: 10/07/24 0909 GLU 1HR 163 (<180) Col: 10/07/24 1012 GLU 2HR 146 (<155) Col: 10/07/24 1112 GLU 3HR 83 (<140) Col: 10/07/24 1212 [facility] Urinalysis macro (dipstick) panel (U)on 09-25-2024 Bilirubin, UA Negative Negative - 4(70) +++ mg/dL [facility] Blood, UA Negative Negative - 50 Roberto/mcL [facility] Clarity, UA Clear [facility] re Color, UA Yellow [facility] e Glucose, UA Negative Negative - 1999(110) ++++ mg/dL [facility] Interpretation and review of laboratory results Abnormal [facility] Ketones, UA Negative Negative - 160(16) ++++ mg/dL [facility] Leukocytes, UA Positive Negative - 500+++ Christian/mcL [facility] Comment on above: small Nitrite, UA Negative Negative - Positive [facility] pH, UA 8.5 5 - 9 [facility] Protein, UA Negative Negative - 1999(20) ++++ mg/dL [facility] Spec Grav, UA 1.02 1 - 1.03 [facility] Urobilinogen, UA 1.0 0.2 - 12 mg/dL [facility] Urinalysis macro (dipstick) panel (U)on 2024 Bilirubin, UA Negative Negative - 4(70) +++ mg/dL [facility] Blood, UA Negative Negative - 50 Roberto/mcL [facility] Clarity, UA Clear [facility] re Color, UA Yellow [facility] Glucose, UA Negative Negative - 1999(110) ++++ mg/dL [facility] Interpretation and review of laboratory results Abnormal [facility] Ketones, UA Negative Negative - 160(16) ++++ mg/dL [facility] Leukocytes, UA Moderate Negative - 500+++ Christian/mcL [facility] Nitrite, UA Positive Negative - Positive [facility] pH, UA 7 5 - 9 [facility] Protein, UA Positive Negative - 1999(20) ++++ mg/dL [facility] Comment on above: 100 Spec Grav, UA 1.02 1 - 1.03 [facility] Urobilinogen, UA 1.0 0.2 - 12 mg/dL [facility] Urinalysis macro (dipstick) panel (U)on 08-14-2024 Bilirubin, UA Negative Negative - 4(70) +++ mg/dL [facility] Blood, UA Negative Negative - 50 Roberto/mcL [facility] Clarity, UA Clear [facility] re Color, UA Yellow [facility] Glucose, UA Negative Negative - 1999(110) ++++ mg/dL [facility] Interpretation and review of laboratory results Abnormal [facility] Ketones, UA Negative Negative - 160(16) ++++ mg/dL [facility] Leukocytes, UA Negative Negative - 500+++ Christian/mcL [facility] Nitrite, UA Negative Negative - Positive [facility] pH, UA 5.5 5 - 9 [facility] Protein, UA Negative Negative - 1999(20) ++++ mg/dL [facility] Spec Grav, UA 1.02 1 - 1.03 [facility] Urobilinogen, UA 1.0 0.2 - 12 mg/dL [facility] ALL CBC WITH AUTO DIFFon BASOPHILS ABSOLUTE AUTO 0 [facility] Basophils/100 WBC (Bld) 0.3 % 0.2 - 2.0 % [facility] Eosinophils/100 WBC (Bld) 0.9 % 0.9 - 7.0 % [facility] Erythrocyte distribution width (RBC) [Ratio] 14.8 % 11.0 - 15.0 % [facility] Hematocrit (Bld) [Volume fraction] 36.3 % 36.0 - 48.0 % [facility] Hemoglobin (Bld) [Mass/Vol] 11.9 g/dL Low 12.0 - 16.0 g/dL [facility] IMMATURE GRANULOCYTES ABS AUTO 0.04 High [facility] Immature granulocytes/100 WBC (Bld) 0.4 % 0.0 - 0.5 % [facility] Interpretation and review of laboratory results Abnormal [facility] LYMPHOCYTES ABSOLUTE AUTO 1.6 [facility] Lymphocytes/100 WBC (Bld) 15 % Low 20.5 - 60.0 % [facility] MCH (RBC) [Entitic mass] 27.2 pg 26.7 - 34.0 pg [facility] MCHC (RBC) [Mass/Vol] 32.8 g/dL 29.9 - 35.2 g/dL [facility] MCV (RBC) [Entitic vol] 83.1 fL 81.0 - 99.0 fL [facility] MONOCYTES ABSOLUTE AUTO 0.8 [facility] Monocytes/100 WBC (Bld) 7.4 % 1.7 - 12.0 % [facility] NEUTROPHILS ABSOLUTE AUTO 7.8 High [facility] Neutrophils/100 WBC (Bld) 76 % High 43.0 - 75.0 % [facility] Platelet mean volume (Bld) [Entitic vol] 9.2 fL Low 9.5 - 13.5 fL [facility] are [facility]H EO # 0.1 [facility] TB PLT 322 [facility] RBC 4.37 [facility] TB WBC 10.3 [facility] GLUCOSE 1 HOURon 07-30-2024 Glucose [Mass/Vol] 173 mg/dL High NINF - 13 0 mg/dL [facility] Interpretation and review of laboratory results Abnormal [facility] RECURRENT VAGINITIS (HTRX)on 07-18-2024 ATOPOBIUM VAGINAE 21.066 [facility] ATOPOBIUM VAGINAE Detected [facility]normal [facility] BVAB 2,3 (BACTERIAL VAGINOSIS ASSOCIATED BACTERIA 2, 3); MOBILUNCUS SPP 20.228 Abnormal [facility] BVAB 2,3 (BACTERIAL VAGINOSIS ASSOCIATED BACTERIA 2, 3); MOBILUNCUS SPP Detected Abnormal [facility] BLANCA ALBICANS, PARAPSILOSIS, TROPICALIS 0 [facility] BLANCA ALBICANS, PARAPSILOSIS, TROPICALIS Not detected [facility] BL[facility]CA GLABRATA [facility] BLANCA GLABRATA Not detected [facility] H ealthcare BLANCA KRUSEI 0 [facility] Healt hcare BLANCA KRUSEI Not detected [facility] CHLAMYDIA TRACHOMATIS 0 [facility] CHLAMYDIA TRACHOMATIS Not detected [facility] ERMB, C; MEFA 26.225 Abnormal [facility] Health care ERMB, C; MEFA Detected Abnormal [facility] care GARDNERELLA VAGINALIS 21.744 Abnormal [facility] GARDNERELLA VAGINALIS Detected Abnormal [facility] Interpretation and review of laboratory results Abnormal [facility] MEGASPHAERA (TYPES 1, 2) 0 [facility] MEGASPHAERA (TYPES 1, 2) Not detected [facility] MYCOPLASMA GENITALIUM 0 [facility] MYCOPLASMA GENITALIUM Not detected [facility] NEISSERIA GONORRHOEAE 0 [facility] NEISSERIA GONORRHOEAE Not detected [facility] TET B, TET M 24.757 Abnormal [facility] are TET B, TET M Detected Abnormal [facility] TRICHOMONAS VAGINALIS 0 [facility] TRICHOMONAS VAGINALIS Not detected [facility] Urinalysis macro (dipstick) panel (U)on 07-17-2024 Bilirubin, UA Negative Negative - 4(70) +++ mg/dL [facility] Blood, UA Negative Negative - 50 Roberto/mcL [facility] Clarity, UA Clear [facility] re Color, UA Yellow [facility] Glucose, UA Negative Negative - 1999(110) ++++ mg/dL [facility] Interpretation and review of laboratory results Abnormal [facility] Ketones, UA Positive Negative - 160(16) ++++ mg/dL [facility] Leukocytes, UA Trace Negative - 500+++ Christian/mcL [facility] Nitrite, UA Negative Negative - Positive [facility] pH, UA 5.5 5 - 9 [facility] Protein, UA Trace Negative - 1999(20) ++++ mg/dL [facility] Spec Grav, UA 1.03 1 - 1.03 [facility] Urobilinogen, UA 0.2 0.2 - 12 mg/dL [facility] Urinalysis macro (dipstick) panel (U)on 06-17-2024 Bilirubin, UA Negative Negative - 4(70) +++ mg/dL [facility] Blood, UA Negative Negative - 50 Roberto/mcL [facility] Clarity, UA Clear [facility] re Color, UA Yellow [facility] Glucose, UA Negative Negative - 1999(110) ++++ mg/dL [facility] Interpretation and review of laboratory results Abnormal [facility] Ketones, UA Negative Negative - 160(16) ++++ mg/dL [facility] Leukocytes, UA Negative Negative - 500+++ Christian/mcL [facility] Nitrite, UA Negative Negative - Positive [facility] pH, UA 6 5 - 9 [facility] e Protein, UA Positive Negative - 1999(20) ++++ mg/dL [facility] Comment on above: 100 Spec Grav, UA 1.03 1 - 1.03 [facility] Urobilinogen, UA 0.2 0.2 - 12 mg/dL [facility] ALL CBC WITH AUTO DIFFon BASOPHILS ABSOLUTE AUTO 0.0 [facility] Basophils/100 WBC (Bld) 0.4 % 0.2 - 2.0 % [facility] Eosinophils/100 WBC (Bld) 1.1 % 0.9 - 7.0 % [facility] Erythrocyte distribution width (RBC) [Ratio] 14.2 % 11.0 - 15.0 % [facility] Hematocrit (Bld) [Volume fraction] 39.3 % 36.0 - 48.0 % [facility] e Hemoglobin (Bld) [Mass/Vol] 12.8 g/dL 12.0 - 16.0 g/dL [facility] IMMATURE GRANULOCYTES ABS AUTO 0.02 [facility] Immature granulocytes/100 WBC (Bld) 0.3 % 0.0 - 0.5 % [facility] Interpretation and review of laboratory results Abnormal [facility] LYMPHOCYTES ABSOLUTE AUTO 1.6 [facility] Lymphocytes/100 WBC (Bld) 21.5 % 20.5 - 60.0 % [facility] MCH (RBC) [Entitic mass] 26.8 pg 26.7 - 34.0 pg [facility] MCHC (RBC) [Mass/Vol] 32.6 g/dL 29.9 - 35.2 g/dL [facility] MCV (RBC) [Entitic vol] 82.2 fL 81.0 - 99.0 fL [facility] MONOCYTES ABSOLUTE AUTO 0.4 [facility] Monocytes/100 [...] [facility] Coding Summary.on 04-07-2022 Coding Summary. CD:[id number] G h0bWw+PGhlYWQ+SH8CORE nY02nmMKgbV8JD1qCVT2Q YCGQSSETDE8MFO0kjVH9V XqqI8FmevKg TifmnDIwLV34NAx8DJH0p OpxRYodzQ5jkWQfV4e4Kt OhJT72hV40KHetFZIlFgX 3LjZpbjsgbWFy Y1zbDeYurTSbAeu+PHRhY mxlIHdpZHRoPScxMDAlJy MttYhzVS6jUn4kJGVfKFX vbGxhcHNlOiBj m2byYUQlYHydMM8biPqaZ 9ZmoWX3RNLlm8r8Je22nX I+DNSzHSJ3vQuvNKymi39 3XrVbl8zoOIU1 kOTxUTakVIJ9Z49mf6Y4V RFwURAaSZO9bIV6dX4voO diopqmX8RhbIQmEjR9LSR 1qNCsuP0blEuf xnaffH4nUqc+U98RON5FW WLRSP0BNed0Q5PgNyzpnH I+NO65BNBtBN03fGSzcLC va6ufzIk5FjAr HEOzWIG4uMpqKZtci0ZzR AOfR87jwDHwn5G8NGQdeY qfrVMuCtDgtGW1fW7rWOs lagjev4gdzomr Kiqhd0tlih05vY92A23sK QtyZMMuJFA5JPZgXZYehS ngmc3dfJ1oJd5+NMyhh7h ps1aqaAh9VsVh LECtdqZhxBwfYLV9n8YaV p52H0FsjLgqh3IjIdu1zi 57oOYvj0X0iCJ2VGxzFNX udW4gRXudKjX0 TYAcFwNzwL40zWIeJDnfW a9idOzcgYisEI1fAWJjrg uiRQDcsP6sDOZqfZWcqCm tPS5eKGUzzmsp f106CqJlOZW9FOIpiIMiO 7XziE2aPcEiXCOcEUVhB5 InaZOgEZvtX288CRkmPqI 4PTIubpQrR3Xb BIOsxJoiFvS0m7P1Ok7Rv 9JcsareRFJ3YZesVDG0Dw E6WkXzYqZ3V7XqDjq9QYF fsXsaRP5oJ7Qx NFHfasgwbhwmuBN4HQBgQ LSlgO94eLZlMOnaKt3do4 F4y471OMWcGXAxeD44Nf5 udDogMTBwdCBU fN9qfqcpf5ljhhxbAtGpK UIgDNm4CHt6VHTdlCopXj NpASM3FxD6IQH8mZHebC2 yvXqhypwhdN2u Oyc+A21bwK4uDNH6SEB8b lclRHPrzyUeNC87HI62F1 RyPjwvdGFibGU+PGRpdiB tjRnkEF3zCuEc f5bsr3ZbFYgnL6XkYQWsQ JxtFyr4EPLpEPI5bPU9sH 7oMAFsSVbnl7S3zKH7R7M hllNdvd4fv6ib QIIqQVcmZ13gxKWyq3T8Y VBtlRO3MQUzpShjQvEjjV 93Oyc+ZRDghHpys8QjMdi qo3uhl5qxyAu9 JhAnYOMlzkYoyTdrIIH5w 0SnZd72X12xYDlyYZSlZB QfXHSbZETshKdxeu8toL4 wIi8+PGNvbCB3 hOL1fB3xJNVpDtW4JDvmI 073XeDmrRAtZrcxb1afw7 nyiFa9DuIcTLSwtkXdwGs xWOG0w5YgZg68 E76hNPkyRKNsPIFlLXXpN RNlyZlqvs6ygF3hXh0+PC 8mh3smpu30aC61xDY+PHR yIJU9jDjmOXdv BAGygP9xIMscErO2HGXpQ aMzpA81rMOtIWhmDw2soJ wplBpnVH7vMRDqomaqa77 5RmKmk5hzYQUc lJKvTKixONW2D51jq6J1O JGvVCObZVB9uRP4zB4cfK lnbjogbGVmdDsgdmVydGl mTIsxIGqvB149 IHRvcDsnPlBhdGllbnQgT sHlVFz7G3JpNun7RJCjrS dmZZ9gaPUyJMsgHc9xuMz miYtqLJ9yYZHu tzeec382XzMak6dqRGAam DIiPMzdPRO8G89zz1O5GY LrYLEpAXD1vDE5xK9aoRy nbjogbGVmdDsg foGdxFoxHJlnJMcuL001I HRvcDsnPkJpcnRoIERhdG U8OV44WO02iKMaf9V9vJZ 7R3SyHJDnkbca ptezvUN3KGTtOUVpnX92Y k4kiIzfKg3qHFOhSAC9CL JkdQDqB6YlyZ9wEaWfEAK jCLKmD7NxoZJg ATifJ662GCvyKwQ2XXLkh fFdX9RcJWVkpWcdFhZ9h9 O5Uc5WX2P9RE07UH57nIH ce3J9zAY7O2Sk PAJadnkudkutbFJ7OYVpN SHupA08Mu8enOgyUa3rVT GmAGL6UCPfrNKtR1IwgR8 yOiAjMDAwMDAw E1PwtHCpREddS000ZMowW cT9QRFqftDmK0ArIEJhlL bnDgQ7q3J8Ne6JLUe5QB8 0PX95wQRtg4R3 tJE3K6QkOHTzernxppcrd LO5VHOnOWMwbI92Qb9xdS miZp9rGJBaKWX9EVOnwVK lP1ZncC3vHqQd KBPqNFEnD9KxoXWuQYslL 765DHnbUhX7RPLvwiLlH9 RkJWApuPmgBfE0e5U4Iz9 DWBFtRF34CQF1 nSM1EN08PP11R6PzRdwsg GFibGU+PHRhYmxlIHdpZH RoPScxMDAlJyBzdHlsZT0 yBg0hDRNaQSJd dJfyjCIqAkQbs0blTJZtI EdnDE9mzNycR0JwyZY2GI Ajd2h9Vh07L78lK4BrfST +RJCyjCN6jXF0 oH3oDkQsMoT6OGcfB240A eIpbPNjZukbh3kpn3hauI s5TpX5HVSndhIwyVddGEF 8s7NrWn64S23j IHdpZHRoPSIxNSUiIHZhb Zcrat3acG5dKi0+PGNvbC E3eNO8dP5sHaFdDwF5FEp sA686GjMggVRn Denwn6bbo0kqgWt8CeWrJ HNzxcDoeVubDPT5l9YaFb 03E2MgeWxau1NsBhk0vq4 3eSLoi4E7oCJ1 J5SyWPJfzaefcJPvhPtyY N8wNNKrkerwKLQlrI6zAO VrZ1i6QpMmIiH0OEwbP9X mwtL0XYFifANf SOmmGQH8P66et6N3YZUiW KHvWTH2xUO9pE3dbLdhaw ogbGVmdDsgdmVydGljYWw hQUvjQ332QHZc xKpkVUVhiP1cOEEsgFQtg FarNS5pGMMkzgezDbPLYM BQLCBIQUxFWSBOSUNPTEU 9D5YpShb3QPIw dLwtVA8jhMBwLHxtMf4kf WyzyLvhJN6kBLYzluwuBM EyaE0uYBUjnTGzxZrbIP6 lMOZqlukxo737 OiTyXDE6OOLiwXHzV2Ear E8uCsQoZJOwVJOlT3ZhhM AaWYrdY983XYwbMqM4KME tbvBzY5RrFRUe tBfhQrH2a7Y7Ny4jMA1vJ Q6rQIy2UD49SE42uXKdt4 F1tRJ4K8IbUZBgavuycvm tyUH7RZSqAWQu jA16uOWhHDghXi5ng4D7l 442HUJeTLQgmT69Yt0vkB kdRYArkXRJwJ7nncczk0r vcjogIzAwMDAw OJf9GEz6EZNldDksMmEdW SS6GuS8STI6vZGkdK2qxH dloibblY5oCqz+MjQgWWV mdkU2G8XzDsi6 MOFpqPjfVN1uxNDgQCvfV g1fnKxswWgqKP2sZQExhd glIBGkfJ8dQJIfbSTmbCy rRX7zICWnuwoh g270JgZgSVA8WRCtdCHoS 5UhbH3cUsZzHOCbIBYvP3 TifKHtPJuvE486JWjoUoY 1AMBfvmLtR2Vb SRUjuSfeDhI5u5D9Vk4GJ J8dnGQ7S3CyVjq7QBExdN daMS7gcICcNWlhGx3ewWo ebFrwFB4eCYYg awdcVYNtkY1qOOWyfEZvc KslEU4jSHZatyhbu930Aa BeSZE1AAGwgKRvG4ZjgP1 yOiAjMDAwMDAw K4RoeTBhRDgxP517MRfvP nL5EWRpqpKnZ6GiPHMnrL ylKkV2i8X3Ca1FzYTwJFR nIZ92OT90PZ32 B3TaAnprlKHzwIZ+PHRhY mxlIHdpZHRoPScxMDAlJy WxkBrqOD9fFu5jXFFiIQI vbGxhcHNlOiBj v4erWREmOTehXG8yjZqwU 5MrlEW3WRBdo5b8Eq48Y6 0kT5GtzSD+UBPltDQ6zPN 2fO2oTdHrVfZ6 CDhmN097GzOaoBYmAgjwb 9ziw7vibWl1XbZjCYScdz MywFvlCNC1w8TuHp56F91 sIHdpZHRoPSIy KFIpELFsmKiyyg7npY2sE i8+UNEbuQV1gTC0tM4uFp LcUrW6DIibQ429HzFeiUI hMtmbQ81bE3We dXA+QTTlGyu4KLXnbBtxH B4juLSmIFauSx7dEFS3Hu NtVpUyDMylS6GfLWLamny oxunzsCB8QEQu COArkX11Uj5ngGheFe1pT WLvAGG1GGUkuXLlQ5FluB 5tVuHtTZNaYIZxJ7HzvTU mPAdrF670OLwx VaL7CTOiplBuY7PiCQZvf AxiWlK8p1Y3Ll4MxNobzY OoOU2wBcArEAu6S3SkNwu 6EECnhRytSB8a qILeYOtjWt3ueWjqlGvjB B8jMPCruupri493EcOzl7 unZCIigOBqMEkxNPT9X99 om1L3WPZiQSPv EIH3sGA1uR0jyWsvcwzsu GVmdDsgdmVydGljYWwtYW lnJ841IGFzzVwzKtFGSvv 5G0DeHku3NVMl xDrgMX2wlOXqSNigYt3ub GvytSnjNF1bSQRmbfhxy8 71OxPeq1tbWLOlrTNlFFq iTDU6A80by8Z6 AZAlLEXvKJV0mZL1sM5ms GlnbjogbGVmdDsgdmVydG nkTLioIZzgS219GXFwgRp bXx7MXqg1B9Wg Tat9XSWlhTpqLJ7ffBMcL KznGk2yiWkhaBbfBS8mWB Eviwcdf277RrCwu9lmHVN wcHQgVGltZXM7 P71hn1S8XGCcJVOcICA8m LQ7hI8joUkomlwwxEPdaG sbnoKnfUneINfvGAzaI30 6IHRvcDsnPlBh eWVyOjwvdGQ+UQ46lv72E 8VtYzmhRwl7XTLdXBZ5bC L9iB4iCIZtSWotp4O0uYD 1P1JopkVhha3s b2xs (more content not included)... [facility] XR Ankle 3+ Views Lefton XR [...] Howell M.D. Transcribed by: JENN Technologist: STEVEN [facility] Consent for Treatmenton Consent for Treatment [id number] [facility] Physician Orderon 04-03-2022 Physician Order [id number] 1.00CD:127 Normal [facility] XR ANKLE LT MIN 3 Von 2021 XR ANKLE LT MIN 3 V EXAM: XR ANKLE LT TN N 3 V, XR FOOT LT MIN [...] authenticated by: MARQUIS HENSON Date: 2022-03-11 16:04 [facility] PAP ACOG PANEL 2: 23 to 29on 10-24-2021 . . Normal [facility] Comment on above: Performed By: #### [id number] #### [facility] [address] [place] [address] Dr. Aura Griffiths Age Gdln ACOG Testing 21-29 [facility] Comment on above: Performed By: #### [id number] #### [facility] [address] [place] [address] Dr. Aura Griffiths DIAGNOSIS: Comment [facility] Comment on above: Result Comment: NEGA TIVE FOR INTRAEPITHELIAL LESION OR MALIGNANCY. Performed By: #### [id number] #### [facility] [address] [address] [address] Aura Griffiths Methodology: Comment [facility] Comment on above: Result Comment: This liquid based ThinPrep(R) pap test was screened with the use of an image guided system. Performed By: #### [id number] #### [facility] [address] [place] [address] Dr. Aura Griffiths Note: Comment [facility] Comment on above: Result Comment: The Pap smear is a screening test designed to aid in the detection of premalignant and malignant conditions of the uterine cervix. It is not a diagnostic procedure and should not be used as the sole means of detecting cervical cancer. Both false-positive and false-negative reports do occur. . Performed By: #### [id number] #### [facility] [address] [place] [address] Dr. Aura Griffiths Performed by: Comment Normal [facility] Comment on above: Result Comment: Radha Trevino, Clinical Care Leader (ASCP) Performed By: #### [id number] #### [facility] [address] [place] [address] Dr. Arua Griffiths Reflex Criteria: Comment Normal [facility] [facility] Comment on above: Result Comment: The HPV DNA reflex criteria were not met with this specimen result therefore, no HPV testing was performed. . Performed By: #### [id number] #### [facility] [address] [place] [address] Dr. Aura Griffiths Specimen adequacy: Comment Normal [facility] Comment on above: Result Comment: Sati sfactory for evaluation. Endocervical and/or squamous metaplastic cells (endocervical component) are present. Performed By: #### [id number] #### [facility] [address] [place] [address] Dr. Aura Griffiths Vital Signs Date Time Vital Sign Value Performing Clinician Aleksandr dobbs 10-23-2024 11:16-0500 Body mass index (BMI) [Ratio] 45.66 kg/m2 Karla OSPINA Work Phone: [facility] 10-23-2024 11:16-0500 Body weight 120.66 kg Karla OSPINA Work Phone: [facility] 10-23-2024 11:16-0500 Diastolic blood pressure 80 mm[Hg] Karla OSPINA Work Phone: [facility] 10-23-2024 11:16-0500 Systolic blood pressure 124 mm[Hg] Karla OSPINA Work Phone: [facility] 10-09-2024 10:43-0500 Body mass index (BMI) [Ratio] 46.17 kg/m2 Carrie Payan DO Work Phone: [facility] 10-09-2024 10:43-0500 Body weight 122.02 kg Carrie Ora DO Work Phone: [facility] 10-09-2024 10:43-0500 Diastolic blood pressure 70 mm[Hg] Carrie Ora DO Work Phone: [facility] 10-09-2024 10:43-0500 Systolic blood pressure 120 mm[Hg] Carrie Ora DO Work Phone: [facility] 09-25-2024 08:58-0500 Body mass index (BMI) [Ratio] 45.49 kg/m2 Carrie Ora DO Work Phone: [facility] 09-25-2024 08:58-0500 Body weight 120.2 kg Carrie Ora DO Work Phone: [facility] 09-25-2024 08:58-0500 Diastolic blood pressure 72 mm[Hg] Carrie Ora DO Work Phone: [facility] 09-25-2024 08:58-0500 Systolic blood pressure 122 mm[Hg] Carrie Ora DO Work Phone: [facility] 2024 09:48-0500 Body mass index (BMI) [Ratio] 44.97 kg/m2 Karla OSPINA Work Phone: [facility] 2024 09:48-0500 Body weight 118.84 kg Karla OSPINA Work Phone: [facility] 2024 09:48-0500 Diastolic blood pressure 70 mm[Hg] Karla Tania PA Work Phone: [facility] 2024 09:48-0500 Systolic blood pressure 120 mm[Hg] Karla Burns PA Work Phone: [facility] 08-14-2024 11:20-0500 Body mass index (BMI) [Ratio] 44.53 kg/m2 Carrie Ora DO Work Phone: [facility] 08-14-2024 11:20-0500 Body weight 117.66 kg Carrie Ora DO Work Phone: [facility] 08-14-2024 11:20-0500 Diastolic blood pressure 82 mm[Hg] Carrie Ora DO Work Phone: [facility] 08-14-2024 11:20-0500 Systolic blood pressure 124 mm[Hg] Carrie Ora DO Work Phone: [facility] 07-17-2024 10:48-0500 Body mass index (BMI) [Ratio] 45.28 kg/m2 Carrie Ora DO Work Phone: [facility] 07-17-2024 10:48-0500 Body weight 119.66 kg Carrie Ora DO Work Phone: [facility] 07-17-2024 10:48-0500 Diastolic blood pressure 70 mm[Hg] Carrie Ora DO Work Phone: [facility] 07-17-2024 10:48-0500 Systolic blood pressure 120 mm[Hg] Carrie Ora DO Work Phone: [facility] 06-17-2024 10:48-0400 Body mass index (BMI) [Ratio] 44.99 kg/m2 Carrie Ora DO Work Phone: [facility] 06-17-2024 10:48-0400 Body weight 118.9 kg Carrie Ora DO Work Phone: [facility] 06-17-2024 10:48-0400 Diastolic blood pressure 70 mm[Hg] Carrie Ora DO Work Phone: [facility] 06-17-2024 10:48-0400 Systolic blood pressure 120 mm[Hg] Carrie Ora DO Work Phone: [facility] 05-16-2024 09:16-0400 Body mass index (BMI) [Ratio] 46 kg/m2 Nom Nurse [facility] 05-16-2024 09:16-0400 Body weight 121.56 kg [facility] Nurse [facility] 05-16-2024 09:16-0400 Diastolic blood pressure 70 [...] Result Encounter Carrie Ora DO Work Phone: [facility] External Department Unsolicited Start: 09-25-2024 End: 09-25-2024 Bamboo flowsheet Carrie Ora DO Work Phone: [facility] Start: 09-25-2024 End: 09-25-2024 Bamboo flowsheet Carrie Ora DO Work Phone: [facility] Start: 09-25-2024 End: 09-25-2024 flow sheet Carrie Ora DO Work Phone: [facility] Comment on above: Second trimester pre gnancy; 27 weeks gestation of ; Elevated glucose tolerance test Start: 09-25-2024 End: 09-25-2024 ambulatory CARRIE ORA Not Available Start: 2024 End: 2024 Bamboo flowsheet Karla OSPINA Work Phone: [facility] Start: 2024 End: 2024 [...] flow sheet Carrie Ora DO Work Phone: [facility] Comment on above: Second [...] Routine [facility] [address] [place] [address] [place] [address] [place] [address] [facility] Start: 10-23-2024 End: 10-23-2024 [...] or unspecified fetus Expected: 10/09/2024, Expires: 10/09/2025 [facility] Comment on above: Expected: 10/09/2024 , Expires: 10/09/2025 Start: 10-09-2024 End: 10-09-2024 Patient encounter procedure 10/09/2024 10:40 AM EST Routine [facility] [address] [place] [id number] Carrie Payan DO [address] [place] [address] [facility] Start: 10-09-2024 End: 10-09-2024 Professional / ancillary services management 10/09/2024 10:00 AM EST Ancillary Procedure [facility] [address] [facility] [place] [id number] [facility] Start: 09-25-2024 End: 09-25-2025 [...] EST Ancillary Procedure [facility] [address] [place] [id number] [facility] Start: 07-17-2024 End: 09-16-2024 [...] AM EST Routine [facility] [address] [place] [address] Carrie Payan, [address] [place] [address] [facility] Start: 06-17-2024 End: 06-17-2024 [...] gestational age Expected: 05/16/2024 (Approximate), Expires: 05/16/2025 [facility] Comment on above: Expected: 05/16/2024 (Approximate), Expires: 05/16/2025 Start: 05-16-2024 End: 05-16-2025 US Pelvis transvaginal US OB transvaginal Imaging Routine Missed menses Expected: 05/16/2024 (Approximate), Expires: 05/16/2025 [facility] Comment on above: Expected: 05/16/2024 (Approximate), Expires: 05/16/2025 Bacteria identified in Urine by Culture Urine culture Microbiology Routine Missed menses Ordered: 05/16/2024 [facility] Comment on above: Ordered: 05/16/2024 Bacteria identified in Urine by Culture Urine culture Microbiology Routine UTI symptoms Ordered: 2024 [facility] Work Phone: Comment on above: Ordered: 2024 CBC W Auto Different ial panel - Blood CBC and differential Lab Routine Missed menses Ordered: 05/16/2024 [facility] Comment on above: Ordered: 05/16/2024 CHLAMYDIA TRACHOMATI S (GENITO/STI) CHLAMYDIA TRACHOMATIS (GENITO/STI) Lab Routine Exposure to STD Ordered: 07/17/2024 [facility] Comment on above: Ordered: 07/17/2024 Hemoglobin A1c/Hemoglobin.total in Blood Hemoglobin A1c Lab Routine Missed menses Ordered: 05/16/2024 [facility] Comment on above: Ordered: 05/16/2024 Hepatitis B virus surface Ag [Presence] in Serum or Plasma by Immunoassay Hepatitis B surface antigen Lab Routine Missed menses Ordered: 05/16/2024 [facility] Comment on above: Ordered: 05/16/2024 Hepatitis C virus Ab [Presence] in Serum or Plasma by Immunoassay Hepatitis C antibody Lab Routine Missed menses Ordered: 05/16/2024 [facility] Comment on above: Ordered: 05/16/2024 HIV-1/HIV-2 antigen/antibody combination immunoassay HIV-1 and HIV-2 antibodies Lab Routine Missed menses Ordered: 05/16/2024 [facility] Comment on above: Ordered: 05/16/2024 Neisseria gonorrhoea e DNA [Presence] in Unspecified specimen by XIOMARA with probe detection Neisseria gonorrhea DNA probe, direct Lab Routine Exposure to STD Ordered: 07/17/2024 [facility] Comment on above: Ordered: 07/17/2024 Reagin Ab [Presence] in Serum by RPR RPR Lab Routine Missed menses Ordered: 05/16/2024 [facility] Comment on above: Ordered: 05/16/2024 Rubella antibody, IgG Rubella an tibody, IgG Lab Routine Missed menses Ordered: 05/16/2024 [facility] Comment on above: Ordered: 05/16/2024 SURESWAB(R) ADVANCED VAGINITIS PLUS, TMA SURESWAB(R) ADVANCED VAGINITIS PLUS, TMA Pathology and Cytology Routine Vaginal discharge Ordered: 07/17/2024 [facility] Work Phone: Comment on above: Ordered: 07/17/2024 Payers Date Payer Category Payer Unknown [id number] 2023 Blue Cross Blue Shield [id number] 2023 Unknown BCBS BCBS xxxxxx [id number] 2023-Present [phone] [address] [place] [address] [id number] 2023 Unknown [id number] 1995 Unknown [id number] 93 1997 Unknown [id number] [id number] 93 1997 Unknown [id number] [id number] 259 1997 Unknown [id number] 2.16.840.1.562878.3.579.2.1 259 1997 Unknown [id number] 2.16.840.1.973642.3.579.2.1 259 1997 Unknown [id number] 2.16.840.1.111648.3.579.2.1 259 1997 Unknown [id number] 2.16.840.1.239353.3.579.2.1 259 1997 Unknown [id number] 2.16.840.1.622519.3.579.2.1 259 1997 Unknown [id number] 2.16.840.1.643400.3.579.2.1 259 1997 Unknown [id number] 2.16.840.1.868187.3.579.2.1 259 1997 Unknown [id number] 2.16.840.1.085935.3.579.2.1 259 1997 Unknown [id number] 2.16.840.1.127472.3.579.2.1 [address] [facility] [id number] 1957 Unknown [id number] Social History Date Type Detail Facility Start: 07-31-2023 Tobacco smoking stat [facility] Never smoked tobacco [facility] Start: 07-31-2023 Tobacco use and exposure Smokeless t obacco non-user [facility] Start: 05-16-2024 End: 10-09-2024 Alcoholic beverage intake Lifetime non-drinker (finding) [facility] Start: 07-31-2023 End: 04-07-2024 History of Social function [facility] Start: 07-31-2023 End: 04-07-2024 Tobacco use panel [facility] Start: 03-28-2024 [facility] Start: 1995 Sex assigned at Female N [facility] Start: 01-23-2023 Gender identity Identifies as female gender (finding) [facility] Clinical Notes 05-16-2024 to 10-23-2024 [...] Morbid obesity with BMI of 40.0-44.9, adult ([facility]) Negative test On Depo-Provera for contraception HISTORY PAST MEDICAL HISTORY SOCIAL HISTORY Past Medical History: Diagnosis Date Depression screening Encounter for gynecological examination (general) (routine) without abnormal findings Family planning Insulin resistance Morbid obesity with BMI of 40.0-44.9, adult ([facility]) Negative test On Depo-Provera for contraception [...] of: BHAVESH Javier documented in this encounter [facility] 10-09-2024 History of Presen t illness Narrative [...] Morbid obesity with BMI of 40.0-44.9, adult ([facility]) Negative test On Depo-Provera for contraception HISTORY PAST MEDICAL HISTORY SOCIAL HISTORY Past Medical History: Diagnosis Date Depression screening Encounter for gynecological examination (general) (routine) without abnormal findings Family planning Insulin resistance Morbid obesity with BMI of 40.0-44.9, adult ([facility]) Negative test On Depo-Provera for contraception [...] nursing note reviewed. Exam conducted with a bridge game director present. Vitals: Estimated body mass index is [...] Carrie Payan DO documented in this encounter [facility] 09-25-2024 History of Presen t illness [...] obesity with BMI of 40.0-44.9, adult ([facility]) Negative test On Depo-Provera for contraception [...] nursing note reviewed. Exam conducted with a bridge game director present. Vitals: Estimated body mass index is [...] Carrie Payan DO documented in this encounter [facility] 2024 History of Presen t illness [...] obesity with BMI of 40.0-44.9, adult ([facility]) Negative test On Depo-Provera for contraception HISTORY PAST MEDICAL HISTORY SOCIAL HISTORY Past Medical History: Diagnosis Date Depression screening Encounter for gynecological examination (general) (routine) without abnormal findings Family planning Insulin resistance Morbid obesity with BMI of 40.0-44.9, adult ([facility]) Negative test On Depo-Provera for contraception [...] nursing note reviewed. Exam conducted with a bridge game director present. Vitals: Estimated body mass index is [...] of: BHAVESH Javier documented in this encounter [facility] 08-14-2024 History of Presen t illness [...] Morbid obesity with BMI of 40.0-44.9, adult ([facility]) Negative test On Depo-Provera for contraception HISTORY PAST MEDICAL HISTORY SOCIAL HISTORY Past Medical History: Diagnosis Date Depression screening Encounter for gynecological examination (general) (routine) without abnormal findings Family planning Insulin resistance Morbid obesity with BMI of 40.0-44.9, adult ([facility]) Negative test On Depo-Provera for contraception [...] nursing note reviewed. Exam conducted with a bridge game director present. Vitals: Estimated body mass index is [...] Carrie Payan DO documented in this encounter [facility] 07-17-2024 History of Presen t illness [...] obesity with BMI of 40.0-44.9, adult ([facility]) Negative test On Depo-Provera for contraception HISTORY PAST MEDICAL HISTORY SOCIAL HISTORY Past Medical History: Diagnosis Date Depression screening Encounter for gynecological examination (general) (routine) without abnormal findings Family planning Insulin resistance Morbid obesity with BMI of 40.0-44.9, adult ([facility]) Negative test On Depo-Provera for contraception [...] nursing note reviewed. Exam conducted with a bridge game director present. Vitals: Estimated body mass index is [...] Carrie Payan DO documented in this encounter [facility] 06-17-2024 History of Presen t illness [...] Morbid obesity with BMI of 40.0-44.9, adult ([facility]) Negative test On Depo-Provera for contraception HISTORY PAST MEDICAL HISTORY SOCIAL HISTORY Past Medical History: Diagnosis Date Depression screening Encounter for gynecological examination (general) (routine) without abnormal findings Family planning Insulin resistance Morbid obesity with BMI of 40.0-44.9, adult ([facility]) Negative test On Depo-Provera for contraception [...] nursing note reviewed. Exam conducted with a bridge game director present. Vitals: Estimated body mass index is [...] Karla Burns PA-C documented in this encounter [facility] 05-16-2024 History of Presen t illness [...] Morbid obesity with BMI of 40.0-44.9, adult ([facility]) Negative test On Depo-Provera for contraception [...] stay away [facility]. Patient has also been advised to [...] Shannan Peña LPN documented in this encounter [facility] Evaluation note Diagnosis 13 weeks gestation [...] content) DATE CREATED AUTHOR 04/05/2022 Crystal Rodriguez [facility] DATE CREATED AUTHOR AUTHOR'S ORGANIZ ATION 04/08/2022 [facility] DATE CREATED AUTHOR AUTHOR'S ORGANIZ ATION 10/25/2024 [facility] Care Teams (unrecognized sec tion and content) District Wildlife Manager Relationship Specialty Start Date End Date Karla Ortega MD [address] [place] [address] PCP - General Family Medicine 01/24/23 District Wildlife Manager Relationship Specialty Start Date End Date Kalra Ortega MD [address] [place] [address] PCP - General Family Medicine 01/24/23 District Wildlife Manager Relationship Specialty Start Date End Date Karla Ortega MD [address] [place] [address] PCP - General Family Medicine 01/24/23 District Wildlife Manager Relationship Specialty Start Date End Date Karla Ortega MD [address] [place] [phone] PCP - General Family Medicine 01/24/23 District Wildlife Manager Relationship Specialty Start Date End Date Karla Ortega MD [address] [place] [address] PCP - General Family Medicine 01/24/23 District Wildlife Manager Relationship Specialty Start Date End Date Karla Ortega MD [address] [place] [address] PCP - General Family Medicine 01/24/23 District Wildlife Manager Relationship Specialty Start Date End Date Karla Ortega MD [address] [place] [phone] PCP - General Family Medicine 01/24/23 District Wildlife Manager Relationship Specialty Start Date End Date Karla Ortega MD [address] [place] [address] PCP - General [facility] Medicine 01/24/23 District Wildlife Manager Relationship Specialty Start Date End Date Karla Ortega MD [address] [place] [address] PCP - General Family Medicine 01/24/23 District Wildlife Manager Relationship Specialty Start Date End Date Karla Ortega MD [address] [place] [address] PCP - General Family Medicine 01/24/23 District Wildlife Manager Relationship Specialty Start Date End Date Karla Ortega MD [address] [place] [phone] PCP - General Family Medicine 01/24/23 Reason [...] BE BASED ON THE PRIMARY CLINICAL RECORDS. [employer] provides no warranty or guarantee of the accuracy or completeness of information in this document.
--- NOTE | 2024-10-30 16:47 | US_ITS ---
The [address] [address] Patient Name: KAREEN FORMAN MRN: [id number] date: 1995 Sex: F Assigned Patient Location: [facility] Current Patient Location: Accession/Order Number: [id number] Exam Date: 10/31/2024 10:24 Report Date: 10/31/2024 10:25 At the request of: CARRIE ARREDONDO DO Procedure: US OB BPP w non-stress BIOPHYSICAL PROFILE: CLINICAL INFORMATION: EXCESSIVE GROWTH AFFECTING O36.60X0 COMPARISON: 10/23/2024 There is a single live intrauterine gestation in cephalic presentation. Reported age is 32 weeks 6 days. The heart rate [id number] ( beats per minute. FINDINGS: TONE: 1 or more episodes of activity extension and flexion of extremity or opening and closing of the hand [Y] 2/2 GROSS BODY MOVEMENTS: 3 or more discrete body or limb movements [Y] 2/2 BREATHING MOVEMENTS: 1 or more episodes of breathing lasting at least 30 seconds [Y] 2/2 JENS: A single deepest vertical pocket of amniotic fluid greater than 2 cm [Y] 2/2 JENS: 16.7 cm. This is in normal range. Total score: 8/8 US/US OB BPP w non-stress IMPRESSION: NORMAL BIOPHYSICAL PROFILE Impression dictated by: Bita Mcdonough M.D.10/31/2024 10:25 AM Dictation Location: [employer] Electronically authenticated by: [id number] Y Date: 10/31/2024 10:25
[2024-10-30 17:46] VITALS: BP 118/62; PULSE 100
== END 2024-10-30 17:50 | disposition home or self-care (01) ==
LOC: US 00:40 → FBC 16:43
PROVIDERS: Visit Provider Obstetrics & Gynecology
DX: O36.63X0 Maternal care for excessive fetal growth, third trimester, not applicable or unspecified (principal); Z3A.32 32 weeks gestation of pregnancy
CPT/HCPCS: 76818

== ENCOUNTER 2024-11-03 02:33 | Outpatient (OUT) | payer BC, SELFPAY ==
--- OUTSIDE RECORDS SUMMARY | 2024-11-03 02:36 | XMS_ITS | CCD ---
Author Organization [facility] Care Team Providers Care Computer Technical Support Specialist Name Role Phone DR CARRIE PAYAN Primary [...] aspirin 81 mg delayed release oral tablet (11 sources) Platelet Aggregation Inhibitor, Nonsteroidal Anti-inflammatory Drug Start: 09-25-2024 End: 09-25-2025 take 1 tablet by mouth once daily aspirin 81 MG EC tablet Indications: Second trimester , 27 weeks gestation of Take 1 tablet (81 mg) by mouth Daily 30 tablet 6 09/25/2024 09/25/2025 Active azithromycin 250 mg oral tablet (8 sources) Macrolide Antimicrobial Start: 10-09-2024 azithromycin (Zithromax [...] Range Facility OB BPP W NON-STRESS on 10-31-2024 [place] [address] Ultrasound Report Signed Patient: KAREEN FORMAN MR#: [id number] : 1995 Acct:[id number] Age/Sex: 29 / F ADM Date: 10/30/24 Loc: US Attending Dr: Carrie Payan D.O. Ordering Physician: Carrie Payan D.O. Date of Service: 10/30/24 Procedure(s): US OB BPP w non-stress Accession Number(s): [id number] cc: KARLA ORTEGA; Carrie Payan D.O. [place] [id number] Patient Name: KAREEN FORMAN MRN: [id number]:[id number] date: 1995 Sex: F Assigned Patient Location: [facility] Current Patient Location: Accession/Order Number: [id number] Exam Date: 10/31/2024 10:24 Report Date: 10/31/2024 10:25 At the request of: CARRIE PAYAN DO Procedure: US OB BPP w non-stress BIOPHYSICAL PROFILE: CLINICAL INFORMATION: EXCESSIVE GROWTH AFFECTING O36.60X0 COMPARISON: 10/23/2024 There is a single live intrauterine gestation in cephalic presentation. Reported age is 32 weeks 6 days. The heart rate [id number] ( beats per minute. FINDINGS: TONE: 1 or more episodes of activity extension and flexion of extremity or opening and closing of the hand [Y] 2/2 GROSS BODY MOVEMENTS: 3 or more discrete body or limb movements [Y] 2/2 BREATHING MOVEMENTS: 1 or more episodes of breathing lasting at least 30 seconds [Y] 2/2 JENS: A single deepest vertical pocket of amniotic fluid greater than 2 cm [Y] 2/2 JENS: 16.7 cm. This is in normal range. Total score: 8/8 US/US OB BPP w non-stress IMPRESSION: NORMAL BIOPHYSICAL PROFILE Impression dictated by: Bita Mcdonough M.D.10/31/2024 10:25 AM Dictation Location: [place] [address] Electronically authenticated by: [id number] Y Date: 10/31/2024 10:25 Dictated By: Bita Mcdonough M.D. Signed By: 10/31/24 1027 DD/ 1025 TD/TT: Boat Canvas Maker And Installer: [facility] Radiology, Radiologist, - 10/31/2024 [place] [address] Ultrasound Report Signed Patient: KAREEN FORMAN MR#: [id number] : 1995 Acct:[id number] Age/Sex: 29 / F ADM Date: 10/30/24 Loc: US Attending Dr: Carrie Payan D.O. Ordering Physician: Carrie Payan D.O. Date of Service: 10/30/24 Procedure(s): US OB BPP w non-stress Accession Number(s): [id number] cc: KARLA ORTEGA; Carrie Payan D.O. The [place] [id number] Patient Name: KAREEN FORMAN MRN: TBH:[id number] date: 1995 Sex: F Assigned Patient Location: [facility] Current Patient Location: Accession/Order Number: [id number] Exam Date: 10/31/2024 10:24 Report Date: 10/31/2024 10:25 At the request of: CARRIE PAYAN DO Procedure: US OB BPP w non-stress BIOPHYSICAL PROFILE: CLINICAL INFORMATION: EXCESSIVE GROWTH AFFECTING O36.60X0 COMPARISON: 10/23/2024 There is a single live intrauterine gestation in cephalic presentation. Reported age is 32 weeks 6 days. The heart rate [id number] ( beats per minute. FINDINGS: TONE: 1 or more episodes of activity extension and flexion of extremity or opening and closing of the hand [Y] 2/2 GROSS BODY MOVEMENTS: 3 or more discrete body or limb movements [Y] 2/2 BREATHING MOVEMENTS: 1 or more episodes of breathing lasting at least 30 seconds [Y] 2/2 JENS: A single deepest vertical pocket of amniotic fluid greater than 2 cm [Y] 2/2 JENS: 16.7 cm. This is in normal range. Total score: 8/8 US/US OB BPP w non-stress IMPRESSION: NORMAL BIOPHYSICAL PROFILE Impression dictated by: Bita Mcdonough M.D.10/31/2024 10:25 AM Dictation Location: [place] [address] Electronically authenticated by: [id number] Y Date: 10/31/2024 10:25 Dictated By: Bita Mcdonough M.D. Signed By: 10/31/24 1027 DD/ 1025 TD/TT: Boat Canvas Maker And Installer: [facility] Radiology Study observation (narrative) [facility] OB BPP W NON-STRESS Ordered By: Radiologist Radiology on 10-31-2024 [facility] [employer] Work Phone: OB BPP W NON-STRESS on 10-23-[address] [address] Ultrasound Report Signed Patient: KAREEN FORMAN MR#: [id number] : 1995 Acct:[id number] Age/Sex: 29 / F ADM Date: 10/23/24 Loc: US Attending Dr: Carrie Payan D.O. Ordering Physician: Carrie Payan D.O. Date of Service: 10/23/24 Procedure(s): US OB BPP w non-stress Accession Number(s): [id number] cc: KARLA ORTEGA; Carrie Payan D.O. The [address] [address] Patient Name: KAREEN FORMAN MRN: [facility]:[id number] date: 1995 Sex: F Assigned Patient Location: [facility] Current Patient Location: US Accession/Order Number: [id number] Exam Date: 10/23/2024 13:18 Report Date: 10/23/2024 22:17 At the request of: CARRIE PAYAN DO Procedure: US OB BPP w non-stress BPP. Reason for exam: Excessive growth. COMPARISON: BPP 10/16/2024. TECHNIQUE: Transabdominal imaging of the gravid uterus was obtained. FINDINGS: Clay Temperer reports the BPP is 8 out of 8. JENS measures 13.1 cm. heart rate 161 bpm. US/US OB BPP w non-stress Impression: BPP 8 out of 8. Correlation with NST is recommended. Impression dictated by: Claudio Schuster Jr., D.O.10/23/2024 10:17 PM Dictation Location: [place] [address] Electronically authenticated by: [id number] Y Date: 10/23/2024 22:17 Dictated By: Claudio Schuster M.D. Signed By: 10/23/242218 DD/ 16 TD/TT: [employer] Can[employer] Maker And Installer: [facility] Radiology, Radiologist, - 10/23/[address] [address] Ultrasound Report Signed Patient: KAREEN FORMAN MR#: [id number] : 1995 Acct:[id number] Age/Sex: 29 / F ADM Date: 10/23/24 Loc: US Attending Dr: Carrie Payan D.O. Ordering Physician: Carrie Payan D.O. Date of Service: 10/23/24 Procedure(s): US OB BPP w non-stress Accession Number(s): [id number] cc: KARLA ORTEGA; Carrie Payan D.O. The [place] [address] Patient Name: KAREEN FORMAN MRN: [id number] date: 1995 Sex: F Assigned Patient Location: [facility] Current Patient Location: US Accession/Order Number: [id number] Exam Date: 10/23/2024 13:18 Report Date: 10/23/2024 22:17 At the request of: CARRIE PAYAN DO Procedure: US OB BPP w non-stress BPP. Reason for exam: Excessive growth. COMPARISON: BPP 10/16/2024. TECHNIQUE: Transabdominal imaging of the gravid uterus was obtained. FINDINGS: Clay Temperer reports the BPP is 8 out of 8. JENS measures 13.1 cm. heart rate 161 bpm. US/US OB BPP w non-stress Impression: BPP 8 out of 8. Correlation with NST is recommended. Impression dictated by: Claudio Schuster Jr., D.O.10/23/2024 10:17 PM Dictation Location: [place] [address] Electronically authenticated by: [id number] Y Date: 10/23/2024 22:17 Dictated By: Claudio Schuster M.D. Signed By: 10/23/242218 DD/ 16 TD/TT: Boat Canvas Maker And Installer: [facility] [employer] Radiology Study observation (narrative) [facility] US OB BPP W NON-STRESS Ordered By: Radiologist Radiology on 10-23-2024 [facility] [employer] Work Phone: Urinalysis macro (dipstick) panel (U)on 10-23-2024 Bilirubin, UA Negative Negative - 4(70) +++ mg/dL [facility] Blood, UA Negative Negative - 50 Roberto/mcL [facility] Clarity, UA Clear [facility] Healthca re Color, UA Yellow [facility] Glucose, UA Negative Negative - 1999(110) ++++ mg/dL [facility] Interpretation and review of laboratory results Abnormal [facility] Ketones, UA Negative Negative - 160(16) ++++ mg/dL [facility] Leukocytes, UA Trace Negative - 500+++ Christian/mcL [facility] Nitrite, UA Negative Negative - Positive [facility] pH, UA 6.5 5 - 9 [facility] Protein, UA Negative Negative - 1999(20) ++++ mg/dL [facility] Spec Grav, UA 1.025 1 - 1.03 [facility] Urobilinogen, UA 1.0 0.2 - 12 mg/dL [facility] US OB BPP W NON-STRESS on 10-16-2024 [place] [address] Ultrasound Report Signed Patient: KAREEN FORMAN MR#: [id number] : 1995 Acct:[id number] Age/Sex: 29 / F ADM Date: 10/16/24 Loc: US Attending Dr: Carrie Payan D.O. Ordering Physician: Carrie Payan D.O. Date of Service: 10/16/24 Procedure(s): US OB BPP w non-stress Accession Number(s): [id number] cc: KARLA ORTEGA; Carrie Payan D.O. The [address] [address] Patient Name: KAREEN FORMAN MRN: [id number]:[id number] date: 1995 Sex: F Assigned Patient Location: Current Patient Location: Accession/Order Number: [id number] Exam Date: 10/16/2024 13:57 Report Date: 10/16/2024 [...] Signed By: 10/16/24 1544 DD/ 154 TD/TT: Boat Canvas Maker And Installer: [facility] Radiology, Radiologist, MD - 10/16/2024 [place] [address] Ultrasound Report Signed Patient: KAREEN FORMAN MR#: [id number] : 1995 Acct:[id number] Age/Sex: 29 / F ADM Date: 10/16/24 Loc: US Attending Dr: Carrie Payan D.O. Ordering Physician: Carrie Payan D.O. Date of Service: 10/16/24 Procedure(s): US OB BPP w non-stress Accession Number(s): [id number] cc: DANIEL ORTEGA Corey D.O. The [place] [address] Patient Name: KAREEN FORMAN MRN: [facility]:[id number] date: 1995 Sex: F Assigned Patient Location: US Current Patient Location: Accession/Order Number: [id number] Exam Date: 10/16/2024 13:57 Report Date: 10/16/2024 [...] RIK LEOS Date: 10/16/2024 15:41 Dictated By: iRk Leos M.D. Signed By: 10/16/24 1544 DD/ 154 TD/TT: Boat Canvas Maker And Installer: [facility] [employer] Radiology Study observation (narrative) [facility] [employer] US OB BPP W NON-STRESS Ordered By: Radiologist Radiology on 10-16-2024 [employer] Work Phone: US OB FOLLOW UP TRANSABDOMIN [...] II, MD, PHD at 10-Oct-2024 07:43:20 AM [facility] Normal Not Available Comment on above: Order Comment: US OB SCAN FOR GROWTH Estimated Date of Delivery: 12/19/24 Gestational Age as of 09/25/2024: 27w6d Urinalysis macro (dipstick) panel (U)on 10-09-2024 Bilirubin, UA Negative Negative - 4(70) +++ mg/dL [facility] Blood, UA Negative Negative - 50 Roberto/mcL [facility] Clarity, UA Clear [facility] Healthca re Color, UA Yellow [facility] Glucose, UA Positive Negative - 1999(110) ++++ mg/dL [facility] Comment on above: 100 Interpretation and review of laboratory results Abnormal [facility] Ketones, UA Positive Negative - 160(16) ++++ mg/dL [facility] Comment on above: 15 Leukocytes, UA Negative Negative - 500+++ Christian/mcL [facility] Nitrite, UA Negative Negative - Positive [facility] pH, UA 7 5 - 9 [facility] Protein, UA Trace Negative - 1999(20) ++++ mg/dL [facility] Spec Grav, UA 1.025 1 - 1.03 [facility] Urobilinogen, UA 0.2 0.2 - 12 mg/dL [facility] GLUCOSE TOLERANCE 3 HOURon 0 10-07-2024 GLUCOSE TOLERANCE 3 HOUR mg/dL [facility] Comment on above: GLU FAST 83 (<95) Co l: 10/07/24 0909 GLU 1HR 163 (<180) Col: 10/07/24 1012 GLU 2HR 146 (<155) Col: 10/07/24 1112 GLU 3HR 83 (<140) Col: 10/07/24 1212 [facility] Healthcar e Urinalysis macro (dipstick) panel (U)on 09-25-2024 Bilirubin, UA Negative Negative - 4(70) +++ mg/dL [facility] Blood, UA Negative Negative - 50 Roberto/mcL [facility] Clarity, UA Clear [facility] Color, UA Yellow [facility] Health[facility] e Glucose, UA Negative Negative - 1999(110) ++++ mg/dL [facility] Interpretation and review of laboratory results Abnormal [facility] Ketones, UA Negative Negative - 160(16) ++++ mg/dL [facility] Healthcare Leukocytes, UA Positive Negative - 500+++ Christian/mcL [facility] Healthcare Comment on above: small Nitrite, UA Negative Negative - Positive [facility] pH, UA 8.5 5 - 9 [facility] Health[facility] e Protein, UA Negative Negative - 1999(20) ++++ mg/dL [facility] Spec Grav, UA 1.02 1 - 1.03 [facility] Urobilinogen, UA 1.0 0.2 - 12 mg/dL [facility] Urinalysis macro (dipstick) panel (U)on 2024 Bilirubin, UA Negative Negative - 4(70) +++ mg/dL [facility] Blood, UA Negative Negative - 50 Roberto/mcL [facility] Healthcare Clarity, UA Clear [facility] Color, UA Yellow [facility] e Glucose, UA Negative Negative - 1999(110) ++++ mg/dL [facility] Interpretation and review of laboratory results Abnormal [facility] Ketones, UA Negative Negative - 160(16) ++++ mg/dL [facility] Leukocytes, UA Moderate Negative - 500+++ Christian/mcL [facility] Nitrite, UA Positive Negative - Positive [facility] pH, UA 7 5 - 9 [facility] e Protein, UA Positive Negative - 1999(20) ++++ mg/dL [facility] Comment on above: 100 Spec Grav, UA 1.02 1 - 1.03 [facility] Urobilinogen, UA 1.0 0.2 - 12 mg/dL [facility] Urinalysis macro (dipstick) panel (U)on 08-14-2024 Bilirubin, UA Negative Negative - 4(70) +++ mg/dL [facility] Blood, UA Negative Negative - 50 Roberto/mcL [facility] Healthcare Clarity, UA Clear [facility] Color, UA Yellow [facility] e Glucose, UA Negative Negative - 1999(110) ++++ mg/dL [facility] Interpretation and review of laboratory results Abnormal [facility] Ketones, UA Negative Negative - 160(16) ++++ mg/dL [facility] Leukocytes, UA Negative Negative - 500+++ Christian/mcL [facility] Nitrite, UA Negative Negative - Positive [facility] pH, UA 5.5 5 - 9 [facility] e Protein, UA Negative Negative - 1999(20) ++++ mg/dL [facility] Spec Grav, UA 1.02 1 - 1.03 [facility] Urobilinogen, UA 1.0 0.2 - 12 mg/dL [facility] Health[facility] e ALL CBC WITH AUTO DIFFon BASOPHILS ABSOLUTE AUTO 0 [facility] Basophils/100 WBC (Bld) 0.3 % 0.2 - 2.0 % [facility] Eosinophils/100 WBC (Bld) 0.9 % 0.9 - 7.0 % [facility] Erythrocyte distribution width (RBC) [Ratio] 14.8 % 11.0 - 15.0 % [facility] Hematocrit (Bld) [Volume fraction] 36.3 % 36.0 - 48.0 % [facility] e Hemoglobin (Bld) [Mass/Vol] 11.9 g/dL Low 12.0 - 16.0 g/dL [facility] IMMATURE GRANULOCYTES ABS AUTO 0.04 High [facility] Immature granulocytes/100 WBC (Bld) 0.4 % 0.0 - 0.5 % [facility] Interpretation and review of laboratory results Abnormal [facility] LYMPHOCYTES ABSOLUTE AUTO 1.6 [facility] Lymphocytes/100 WBC (Bld) 15 % Low 20.5 - 60.0 % [facility] MCH (RBC) [Entitic mass] 27.2 pg 26.7 - 34.0 pg [facility] MCHC (RBC) [Mass/Vol] 32.8 g/dL 29.9 - 35.2 g/dL [facility] MCV (RBC) [Entitic vol] 83.1 fL 81.0 - 99.0 fL [facility] MONOCYTES ABSOLUTE AUTO 0.8 [facility] Monocytes/100 WBC (Bld) 7.4 % 1.7 - 12.0 % [facility] NEUTROPHILS ABSOLUTE AUTO 7.8 High [facility] Neutrophils/100 WBC (Bld) 76 % High 43.0 - 75.0 % [facility] Platelet mean volume (Bld) [Entitic vol] 9.2 fL Low 9.5 - 13.5 fL [facility] EO # 0.1 [facility] PLT 322 [facility] RBC 4.37 [facility] WBC 10.3 [facility] GLUCOSE 1 HOURon 07-30-2024 Glucose [Mass/Vol] 173 mg/dL High NINF - 13 0 mg/dL [facility] Interpretation and review of laboratory results Abnormal [facility] Healthcare [facility] e RECURRENT VAGINITIS (HTRX)on 07-18-2024 ATOPOBIUM VAGINAE 21.066 Abnormal [facility] ATOPOBIUM VAGINAE Detected Abnormal [facility] althcare BVAB 2,3 (BACTERIAL VAGINOSIS ASSOCIATED BACTERIA 2, 3); MOBILUNCUS SPP 20.228 Abnormal [facility] Healthcare BVAB 2,3 (BACTERIAL VAGINOSIS ASSOCIATED BACTERIA 2, 3); MOBILUNCUS SPP Detected Abnormal [facility] BLANCA ALBICANS, PARAPSILOSIS, TROPICALIS 0 [facility] BLANCA ALBICANS, PARAPSILOSIS, TROPICALIS Not detected [facility] Healthcare BLANCA GLABRATA 0 [facility] BLANCA GLABRATA Not detected [facility] BLANCA KRUSEI 0 [facility] BLANCA KRUSEI Not detected [facility] CHLAMYDIA TRACHOMATIS 0 [facility] CHLAMYDIA TRACHOMATIS Not detected [facility] ERMB, C; MEFA 26.225 Abnormal [facility] care ERMB, C; MEFA Detected Abnormal [facility] care GARDNERELLA VAGINALIS 21.744 Abnormal [facility] GARDNERELLA VAGINALIS Detected Abnormal [facility] Interpretation and review of laboratory results Abnormal [facility] Healthcare MEGASPHAERA (TYPES 1, 2) 0 [facility] MEGASPHAERA (TYPES 1, 2) Not detected [facility] MYCOPLASMA GENITALIUM 0 [facility] MYCOPLASMA GENITALIUM Not detected [facility] NEISSERIA GONORRHOEAE 0 [facility] NEISSERIA GONORRHOEAE Not detected [facility] TET B, TET M 24.757 Abnormal [facility] Healthc are TET B, TET M Detected Abnormal [facility] Healthc are TRICHOMONAS VAGINALIS 0 [facility] TRICHOMONAS VAGINALIS Not detected [facility] Urinalysis macro (dipstick) panel (U)on 07-17-2024 Bilirubin, UA Negative Negative - 4(70) +++ mg/dL [facility] Blood, UA Negative Negative - 50 Roberto/mcL [facility] Clarity, UA Clear [facility] Healthca re Color, UA Yellow [facility] e Glucose, UA Negative Negative - 1999(110) ++++ mg/dL [facility] Interpretation and review of laboratory results Abnormal [facility] Ketones, UA Positive Negative - 160(16) ++++ mg/dL [facility] Leukocytes, UA Trace Negative - 500+++ Christian/mcL [facility] Nitrite, UA Negative Negative - Positive [facility] pH, UA 5.5 5 - 9 [facility] Protein, UA Trace Negative - 1999(20) ++++ mg/dL [facility] Spec Grav, UA 1.03 1 - 1.03 [facility] Urobilinogen, UA 0.2 0.2 - 12 mg/dL [facility] Urinalysis macro (dipstick) panel (U)on 06-17-2024 Bilirubin, UA Negative Negative - 4(70) +++ mg/dL [facility] Blood, UA Negative Negative - 50 Roberto/mcL [facility] Clarity, UA Clear [facility] Healthca re Color, UA Yellow [facility] Glucose, UA Negative Negative - 1999(110) ++++ mg/dL [facility] Interpretation and review of laboratory results Abnormal [facility] Ketones, UA Negative Negative - 160(16) ++++ mg/dL [facility] Leukocytes, UA Negative Negative - 500+++ Christian/mcL [facility] Nitrite, UA Negative Negative - Positive [facility] pH, UA 6 5 - 9 [facility] Protein, UA Positive Negative - 1999(20) ++++ mg/dL [facility] Comment on above: 100 Spec Grav, UA 1.03 1 - 1.03 [facility] Urobilinogen, UA 0.2 0.2 - 12 mg/dL [facility] e ALL CBC WITH AUTO DIFFon BASOPHILS ABSOLUTE AUTO 0.0 [facility] Basophils/100 WBC (Bld) 0.4 % 0.2 - 2.0 % [facility] Eosinophils/100 WBC (Bld) 1.1 % 0.9 - 7.0 % [facility] Erythrocyte distribution width (RBC) [Ratio] 14.2 % 11.0 - 15.0 % [facility] Hematocrit (Bld) [Volume fraction] 39.3 % 36.0 - 48.0 % [facility] Hemoglobin (Bld) [Mass/Vol] 12.8 g/dL 12.0 - 16.0 g/dL [facility] Healthcare IMMATURE GRANULOCYTES ABS AUTO 0.02 [facility] Immature granulocytes/100 WBC (Bld) 0.3 % 0.0 - 0.5 % [facility] Interpretation and review of laboratory results Abnormal [facility] LYMPHOCYTES ABSOLUTE AUTO 1.6 [facility] Lymphocytes/100 WBC (Bld) 21.5 % 20.5 - 60.0 % [facility] MCH (RBC) [Entitic mass] 26.8 pg 26.7 - 34.0 pg [facility] MCHC (RBC) [Mass/Vol] 32.6 g/dL 29.9 - 35.2 g/dL [facility] MCV (RBC) [Entitic vol] 82.2 fL 81.0 - 99.0 fL [facility] MONOCYTES ABSOLUTE AUTO 0.4 [facility] Monocytes/100 WBC (Bld) 5.1 % 1.7 - 12.0 % [facility] NEUTROPHILS ABSOLUTE AUTO 5.3 [facility] Neutrophils/100 WBC (Bld) 71.6 % 43.0 - 75.0 % [facility] Platelet mean volume (Bld) [Entitic vol] 9.2 fL Low 9.5 - 13.5 fL [facility] Healthc are TBH EO # 0.1 [facility] TB PLT 324 [facility] RBC 4.78 [facility] TB WBC 7.4 [facility] HCG ( test) Ql (U)o n 05-16-2024 Interpretation and review of laboratory results Abnormal [facility] Preg Test, Ur Positive [facility] Cytology Cervical or vaginal smear or scraping studyOrdered By: Sheila Flowers on 04-07-2024 [facility] Coding Summary.on 04-07-2022 Coding Summary. CD:[id number] G h0bWw+PGhlYWQ+VS3GTFD yS81omODrnV7KC1pAIR4C UCZVJMJMAD4III9wbPI8Y QajB9UftgNu RoyuwSLmAE34THl3DDQ0v PhuKXopxH8ukIXbI5j0Hs VtTT33yL57QPlsGXAvHiZ 3LjZpbjsgbWFy Q0cvTsAifOEiNzj+PHRhY mxlIHdpZHRoPScxMDAlJy GcwHseXV6nMh1dQCCgZFQ vbGxhcHNlOiBj n2orUNCxVLgrGR0adKwfY 7SejJN3LYWhv0v4Wv75eE I+AOFrTIX4rIadMCpvn39 9IkBip8kmFJQ7 zPQsWBvcMUY5O48rk4R4L AJpFAUpLXM3uWG4wW6xrE frsdmgR6GurCAnEvM9FJH 2uKDdkO5vpGdt famvrA1nXow+J86UOM2LW ONION0YPda1H0NePhtgoC I+MQ45CLLoTT74fHWqcCN al1izeLh4BxZt YJSoZJY7vCmdMPjld4YlH NKzA02ihWVcn6Z9GFXqcA mqxOLpHxLsjMR8rM1jAVm kvuses9aiwiww Fybka2upml87fN60A48sG VabUNJtUPG3KMYbAEMihO ekri3lqG5aTs2+EGmqh4c nu9gymSt7NnGd EHLydjWkrVbuEHU5v3XeJ z29J0QcgJlje9ZdUws4zn 81uRTcj8R5jMT0VWtjTQF ofI9aCJasCpI3 PLVeEzJbiE24sFObTTyaM i3hbEqtdBpgEE0mNDLegz lzCLChmX2uPYIhtMGaoUk mXL9nZZCptyih w819QkMaHQB1ANGgvSDpY 7UpsI6vOkTiKHZmXEZaS0 QncEGdSDsgL244ESfdKsY 8TXXookMdT0Ui CHYarBnxVnQ5f1M4Eu4Hh 0IxtqnpTNE2VJiaEXL1Oq C8KwZjGdM0Z8YiEgj2TFK fxFmxNS4vK7Co JORunyzcdcsdqUT8KVNcQ GZudL88eVAnWYdcYc5bv9 W4n560ZUQeRXAzkE28Pz9 udDogMTBwdCBU pP4miadzl7zhkjxzMuTbU FOwYLc8DQk2RAAreNroHl RiIJA5GzG6DHG3gHFikX7 zgUizpjgfbT7s Oyc+D60pbN0gGLF0HON7p jgzDGDglwGuIL70EX29H3 RyPjwvdGFibGU+PGRpdiB bgMyeCW1jBvMs t2coi8WjUPayQ9CcBPViQ RsyCou0XCZfUDA8sND6jR 6dVENzONooe9I3pNQ7T2N bbvImry7nn9ak ZLTsRHzeO11rxBNba8C6P GQzdTT1CARjkVdlBfZytB 93Oyc+KQUgkDzgf5RmIht xv8kbp0oteKb7 BeVrLRJicvWbgActKJK8j 3QeLd33H76mBVcpWSTkTV FoQBBfWBHasQfigg9jeX9 wIi8+PGNvbCB3 hUA6eM9oCZMsSdR9DYgmG 535LnGvoEPuHkjdg8bng5 exhCg1VnJcQLUrimTdiMy dEZK2h1MiLl85 U22hQTdcPFJqLCWjBCTlC FFcyYwgzv1hrA7gRj8+PC 7us3arec08rH05nRS+PHR sIMS3wOtvDPdb XVPexW8dVGocHjJ1GQUwS iQiuF48eHQjIMxcVm9coH lmjHeqFJ3mZPUyhduub36 0KeMzg4niSJFj eNYhQDebLOZ2Z38lm9Y2G HZxWIBeOCT3kNP6eX8hgP lnbjogbGVmdDsgdmVydGl iZDazHEtsC209 IHRvcDsnPlBhdGllbnQgT fZuQKe3D4IcSro9DRRxbI apZD3ibFCcYZytWj0sjDi xfLqcFZ5fIYDy wmrak928EiTwc8nmFDOak VRzQQmqYDP5Y55ij4X6MK CmTTVyYTB0gFA5sY6tkOp nbjogbGVmdDsg egGaiWswKDdlHBelT853W HRvcDsnPkJpcnRoIERhdG T9ZO08WP96bLGao3X4qGK 3E9SrPPFmjuqt enoldDM5QAYfEPLorQ10N v4xlImsYs5bPFBjUQL6NS HxzOGmB6MmlB3qIvFiCLT oZXKdI4XosCCm PUhvE016VHdwQkV9SLVdy sLuH7JvDUEkvCpmXxK1z4 G2My8FA1Y4IR28FX09zFX eb0C5wLM4V7Yz NEQypibmostrlFF3SLAfI HTmjF54Vz5viLfmCx9oGI WmCDH1WJVybJKfW3UhtJ3 yOiAjMDAwMDAw F0AdtSLfDWsmT337OPuqI kC6FBCskzFsF1SlXDRfzE tfIlK8f5B0Mq7FSRd7CX6 0BC20aVYfd1K9 gVL2W2MwTMAchlczexgkb HT8VWNiVTCthG34Hw4lcS tqFh4dUKVvGMS8ENBotGO zE1HmnJ8eYgRg QBDrGPVnX7EgfCCgBUrdQ 711KIqoVxZ8OIMxsnZoJ3 AiJZRdoYxlWbR5v2V2Ve3 YWKApIN57QRN5 hUT5HJ45GB33K7GtEnwyr GFibGU+PHRhYmxlIHdpZH RoPScxMDAlJyBzdHlsZT0 rTc5iGQTxDIFs iIqtpBJbXdPhr1hzKZAsD SxcKL9waLruS8CjzLO8HH Fbc4d2Ex81I20bT1OcpHL +TEMroKO5uTU7 tR6nHvSrRzM4OKorK424M xRmtJTrBnteg1pen1mhsY b9VgX2LXVtaqUjsDvvYIA 3s4EfGp10M60x IHdpZHRoPSIxNSUiIHZhb Rvifo2xaH2yHr7+PGNvbC F0sKE3gY5bEpQrUjC5PTl sB808MxWhhYPo Wpvpe7qgs4dwxLt1IfIcZ TTxetRjeSvgJGP6h6KgYh 53Y3HymOxfe8ImDxr6nu0 6rGGth8A0jKK2 H2OgHTDfomgojGJijSpdG V6hZLEodewnACDwbJ1wZC VnV6q3PoUkAnC3NWylN2K hauS7UMFopTAd TAluMYK1D27wz9N8OAKoK MFtPLR5fGU1oY1trQuysb ogbGVmdDsgdmVydGljYWw iTYawO192QZAy lXcpVYQamY6sQYJwaHEbk VncQS3xZDXatlxiYnMVMR BQLCBIQUxFWSBOSUNPTEU 2S9BiOth3TLZw mVikBP6jnMFrANafTf8vb XzfzWodYA3cUKCercdzVE DvdF6lNEJdhFTzoPemCC3 eFERmuyqcb644 MzLtXMJ9UJRbeDUkE3Mdh W9hSfMxRDYnYPCxB9JksH TvDGxnI837KNieIsP5RGN nsxOqJ7MyXEGz hYycXfI3l6G6Hc5yXB6oJ S9hSYb3VX32SB81zCWmm4 D3yFO0U2ObIKRlqervska rkGF3PVOlKRZh lR47lJZgPSulHn4pl0H5v 679YDSsFUNxgD54Rc2ufH xhNKVdyMMQsM1evwgki8v vcjogIzAwMDAw CDw5KUj3JXPtjVuyOlTrK CT5LgA8CTR8xGAuyF9flH lpqaqkaS7xUru+MjQgWWV gczA2W6BqGaf1 ZKGjuXlzPE2xfTPxNFirK s7wjTzjxHfaIQ5dDHWgbg geTIFdiL7jCKBnnWQufNd wWY9iFANcslgw m385RrPuBSS7PKGsyEFmE 6NpvI4xIlLnRHYwDPNzL0 GodCCgTDtvI044JQqaWtI 2ZHSnadLgO0Jk WFXkiXjyWqH2a9E6Yu0IS Y6pdNM9O1GsQpp5VTJvkF muVZ3geONuSGoiMe9gqFu vcLveJL8pJJSc fmioHGUdaW0fJNNepCAkr IpoSF0pAXRecpsco554Tb YmLGR8XHRjcMAyI6LqyC4 yOiAjMDAwMDAw D8JgaMKbVZxkD479WAsrJ vV9XPYorrKeS0DmZPCwhX zjBhV3d6T0Ro3UzKSyMKF kKJ49MW26YW16 Z0CjQablbUJjrYP+PHRhY mxlIHdpZHRoPScxMDAlJy OeaYonGO1bVk4pFHMcPIL vbGxhcHNlOiBj s4cnTYNcWPhgZS8tuBsmQ 4CtcMW8MREvh1v9Ee28E1 0cJ8BtwVR+HGEgvPA5uTL 2bV1vApPmVxD6 MZfmF782DdNwoJRwAhmqv 5pza6iveXm3NfFiRNWtpa XxgMtbZJV8v0YoLr30A08 sIHdpZHRoPSIy SOShSFXosMrdgi0piX0eZ i8+UXIcoLI4nZW3gF4aRy SbKjS9EVvpP392KuIbaHM uSjivL12pN0Wn dXA+QNZbZbx1VBXbgAytW K4kaOHmJKhtJo6pDKJ1Gp CmEfEbACieJ6FdHPMpwsw ofduubWX1VOHw AYBrqS90Rn8wpHgqNt0pX VAwGVZ3XEDbnEQhF2VdqO 7sBzFbORSxBESwU2WjrPO sIEcvX412GPgg VsM1BEPgqaEwJ4KrICMis YugKvC2i8F9Dv2NxEdrdJ IqAF9dDrLxGFk3S4FeHgz 5ZXAkqEyaCL4w mVFiYGgpLb9svFwfwOctC B4xWVIirhnfx500TrIti0 clCZBmdFFvMFtzGMS4O26 ed3R2MJTcZUNa YNP2aBS1sO6lmKueqjenz GVmdDsgdmVydGljYWwtYW vwC507HMDxmMhjDxFUUjx 6Y8LvAzb5ICDn lPyiSR4epFVuWHfxZc7wm BpiiBxvFQ8rLDTpeqmxh7 89JbCpe6xwDDMyrSCcJDe hNWS0Z01dc3Q4 LJRxAMCrGRD0qOQ7mV0la GlnbjogbGVmdDsgdmVydG zpDZcyJObqT276HXTunWx rDo9LAxd3D0Pf Ylx2UCUpsCmoII8hxIIbS DjpFi3uoRpdkUvhZH7mDY Zavrkwg650SbSul7fhEQS wcHQgVGltZXM7 J97yx1U9MNJmUNLeLRW7d QY6jN8oiSzbkgusgIKnoE jghzJzwRnmQQtqHWgzA37 6IHRvcDsnPlBh eWVyOjwvdGQ+DQ01wj61G 9KgVpeaBip0KHUsIJE9jP G5fV2kMKZdODaju6K6wHL 7N9XnszQepm8q b2xs (more content not included)... [facility] XR Ankle 3+ Views Lefton [...] Howell M.D. Transcribed by: JENN Technologist: STEVEN [facility] Consent for Treatmenton Consent for Treatment [id number] .00CD:[address] [facility] Physician Orderon 04-03-2022 Physician Order [id number] 1.00CD:127 Normal [facility] XR ANKLE LT MIN 3 Von 2021 XR ANKLE LT MIN 3 V EXAM: XR ANKLE LT OH N 3 V, XR FOOT LT MIN [...] by: MARQUIS HENSON Date: 2022-03-11 16:04 Normal [facility] PAP ACOG PANEL 2: 21 to 29on 10-24-2021 . . Normal [facility] Comment on above: Performed By: #### [id number] #### [facility] [address] [place] [address] Dr. Aura Wu Gdln ACOG Testing 21- Normal [facility] Comment on above: Performed By: #### [id number] #### [facility] [address] [place] [address] Dr. Aura Griffiths DIAGNOSIS: Comment Normal [facility] Comment on above: Result Comment: NEGA TIVE FOR INTRAEPITHELIAL LESION OR MALIGNANCY. Performed By: #### [id number] #### [facility] [address] [place] [address] Dr. Arua Griffiths Methodology: Comment Normal [facility] Comment on above: Result Comment: This liquid based ThinPrep(R) pap test was screened with the use of an image guided system. Performed By: #### [id number] #### [facility] [address] [place] [address] Dr. Aura Griffiths Note: Comment Normal [facility] Comment on above: Result Comment: The Pap smear is a screening test designed to aid in the detection of premalignant and malignant conditions of the uterine cervix. It is not a diagnostic procedure and should not be used as the sole means of detecting cervical cancer. Both false-positive and false-negative reports do occur. . Performed By: #### [id number] #### [facility] [address] [place] [address] Dr. Aura Griffiths Performed by: Comment Normal [facility] Comment on above: Result Comment: Radha Trevino, Payroll Accounting Clerk (ASCP) Performed By: #### [id number] #### [facility] [address] [place] [address] Dr. Aura Griffiths Reflex Criteria: Comment Normal [facility] Comment on above: Result Comment: The HPV DNA reflex criteria were not met with this specimen result therefore, no HPV testing was performed. . Performed By: #### [id number] #### [facility] [address] [place] [address] Dr. Aura Griffiths Specimen adequacy: Comment Normal [facility] Comment on above: Result Comment: Sati sfactory for evaluation. Endocervical and/or squamous metaplastic cells (endocervical component) are present. Performed By: #### [id number] #### [facility] [address] [place] [address] Dr. Aura Griffiths Vital Signs Date Time Vital Sign Value Performing Clinician Faci lity 10-23-2024 11:16-0500 Body mass index (BMI) [Ratio] 45.66 kg/m2 Karla OSPINA Work Phone: [facility] 10-23-2024 11:16-0500 Body weight 120.66 kg Karla OSPINA Work Phone: [facility] 10-23-2024 11:16-0500 Diastolic blood pressure 80 mm[Hg] Karla OSPINA Work Phone: [facility] 10-23-2024 11:16-0500 Systolic blood pressure 124 mm[Hg] Karla Burns PA Work Phone: [facility] 10-09-2024 10:43-0500 Body mass index (BMI) [Ratio] 46.17 kg/m2 Carrie Ora DO Work Phone: [facility] 10-09-2024 10:43-0500 Body weight 122.02 kg Carrie Ora DO Work Phone: [facility] 10-09-2024 10:43-0500 Diastolic blood pressure 70 mm[Hg] Carrie Ora DO Work Phone: [facility] 10-09-2024 10:43-0500 Systolic blood pressure 120 mm[Hg] Carrie Ora DO Work Phone: [facility] 09-25-2024 08:58-0500 Body mass index (BMI) [Ratio] 45.49 kg/m2 Carrie Ora DO Work Phone: [facility] 09-25-2024 08:58-0500 Body weight 120.2 kg Carrie Ora DO Work Phone: [facility] 09-25-2024 08:58-0500 Diastolic blood pressure 72 mm[Hg] Carrie Ora DO Work Phone: [facility] 09-25-2024 08:58-0500 Systolic blood pressure 122 mm[Hg] Carrie Ora DO Work Phone: [facility] 2024 09:48-0500 Body mass index (BMI) [Ratio] 44.97 kg/m2 Karla Burns PA Work Phone: [facility] 2024 09:48-0500 Body weight 118.84 kg Karla Burns PA Work Phone: [facility] 2024 09:48-0500 Diastolic blood pressure 70 mm[Hg] Karla Burns PA Work Phone: [facility] 2024 09:48-0500 Systolic blood pressure 120 mm[Hg] Karla Burns PA Work Phone: [facility] 08-14-2024 11:20-0500 Body mass index (BMI) [Ratio] 44.53 kg/m2 Carrie Ora DO Work Phone: [facility] 08-14-2024 11:20-0500 Body weight 117.66 kg Carrie Ora DO Work Phone: [facility] 08-14-2024 11:20-0500 Diastolic blood pressure 82 mm[Hg] Carrie Ora DO Work Phone: [facility] 08-14-2024 11:20-0500 Systolic blood pressure 124 mm[Hg] Carrie Ora DO Work Phone: [facility] 07-17-2024 10:48-0500 Body mass index (BMI) [Ratio] 45.28 kg/m2 Carrie Ora DO Work Phone: [facility] 07-17-2024 10:48-0500 Body weight 119.66 kg Carrie Ora DO Work Phone: [facility] 07-17-2024 10:48-0500 Diastolic blood pressure 70 mm[Hg] Carrie Ora DO Work Phone: [facility] 07-17-2024 10:48-0500 Systolic blood pressure 120 mm[Hg] Carrie Ora DO Work Phone: [facility] 06-17-2024 10:48-0400 Body mass index (BMI) [Ratio] 44.99 kg/m2 Carrie Ora DO Work Phone: [facility] 06-17-2024 10:48-0400 Body weight 118.9 kg Carrie Ora DO Work Phone: [facility] 06-17-2024 10:48-0400 Diastolic blood pressure 70 mm[Hg] Carrie Ora DO Work Phone: [facility] 06-17-2024 10:48-0400 Systolic blood pressure 120 mm[Hg] Carrie Ora DO Work Phone: [facility] 05-16-2024 09:16-0400 Body mass index (BMI) [Ratio] 46 kg/m2 [facility] 05-16-2024 09:16-0400 Body weight 121.56 kg [facility] 05-16-2024 09:16-0400 Diastolic blood pressure 70 mm[Hg] [facility] 05-16-2024 09:16-0400 Systolic blood pressure 120 mm[Hg] [facility] Encounters Encounter Date Encounter Type Care Provider Facility Start: 10-31-2024 End: 10-31-2024 Clinisync Result Encounter Carrie Ora DO Work Phone: [facility] Unsolicited Start: 10-31-2024 End: 10-31-2024 Clinisync Result Encounter Carrie Ora DO Work Phone: [facility] Unsolic[facility] Start: 10-23-2024 End: 10-23-2024 Bamboo flowsheet Karla [...] Bamboo flowsheet Karla Burns PA Work Phone: [facility] Start: 2024 [...] Date Procedure Procedure Detail Performing Clinician Start: 10-31-2024 US OB BPP W NON-STRESS Carrie Ora DO Work Phone: Start: 10-23-2024 US OB BPP W NON-STRESS Carrie Ora DO Work Phone: Start: 10-23-2024 Urnls dip stick/tabl et rgnt non-auto w/o micrscp Karla OSPINA Work Phone: Start: 10-16-2024 OB BPP W NON-STRESS Carrie [...] PM EST Routine [facility] [address] [place] [id number] Karla Burns PA [address] [place] [address] [facility] Start: 10-23-2024 End: 10-23-2024 Patient encounter procedure [facility] Comment on above: Arrived Start: 10-09-2024 End: 10-09-2025 US biophysical profile w non stress test US biophysical profile w non stress test Imaging Routine Excessive growth affecting management of , antepartum, single or unspecified fetus Expected: 10/09/2024 (Approximate), Expires: 10/09/2025 [facility] Work Phone: Comment on above: [...] AM EST Routine [facility] [address] [place] [address] Carrie Payan, DO [address] [place] [address] [facility] Start: 10-09-2024 End: 10-09-2024 Professional / ancillary services management 10/09/2024 10:00 AM EST Ancillary Procedure [facility] [address] [address] [facility] Start: 09-25-2024 End: 09-25-2025 Measurement of glucose 3 hours after glucose challenge for glucose tolerance test Glucose tolerance, 3 hours Lab Routine Elevated glucose tolerance test Expected: 09/25/2024 (Approximate), Expires: 09/25/2025 [facility] Comment on above: Expected: 09/25/2024 (Approximate), [...] EST Ancillary Procedure [facility] [address] [place] [address] [facility] Start: 07-17-2024 End: 09-16-2024 [...] anatomic survey Expected: 07/17/2024 (Approximate), Expires: 07/17/2025 [facility] Comment on above: Expected: 07/17/2024 (Approximate), Expires: 07/17/2025 Start: 07-15-2024 End: 07-15-2024 Patient encounter procedure 07/15/2024 10:50 AM EST Routine [facility] [address] [place] [address] Carrie Payan, [address] [place] [address] [facility] Start: 06-17-2024 End: 06-17-2024 Patient encounter procedure [facility] Comment on above: Arrived Start: 05-16-2024 End: 05-16-2025 ABO/Rh ABO/Rh Lab Routine Missed menses Expected: 05/16/2024 (Approximate), Expires: 05/16/2025 [facility] Comment on above: Expected: 05/16/2024 (Approximate), Expires: 05/16/2025 Start: 05-16-2024 End: 05-16-2025 Blood type and Indirect antibody screen panel - Blood Type and screen Lab Routine Missed menses Expected: 05/16/2024 (Approximate), Expires: 05/16/2025 [facility] Work Phone: Comment on above: Expected: 05/16/2024 (Approximate), Expires: 05/16/2025 Start: 05-16-2024 End: 05-16-2025 Drugs of abuse panel - Urine by Screen method Rapid drug screen, urine Lab Routine Encounter for supervision of normal first in first trimester , unspecified gestational age Expected: 05/16/2024 (Approximate), Expires: 05/16/2025 [facility] Comment on above: Expected: 05/16/2024 (Approximate), Expires: 05/16/2025 Start: 05-16-2024 End: 05-16-2025 US Pelvis transvaginal US OB transvaginal Imaging Routine Missed menses Expected: 05/16/2024 (Approximate), Expires: 05/16/2025 [facility] Comment on above: Expected: 05/16/2024 (Approximate), Expires: 05/16/2025 Bacteria identified in Urine by Culture Urine culture Microbiology Routine Missed menses Ordered: 05/16/2024 [facility] Comment on above: Ordered: 05/16/2024 Bacteria identified in Urine by Culture Urine culture Microbiology Routine UTI symptoms Ordered: 2024 [facility] Work Phone: Comment on above: Ordered: 2024 CBC W Auto Different ial panel - Blood CBC and differential Lab Routine Missed menses Ordered: 05/16/2024 [facility] Comment on above: Ordered: 05/16/2024 CHLAMYDIA TRACHOMATI S (GENITO/STI) CHLAMYDIA TRACHOMATIS (GENITO/STI) Lab Routine Exposure to STD Ordered: 07/17/2024 [facility] Comment on above: Ordered: 07/17/2024 Hemoglobin A1c/Hemoglobin.total in Blood Hemoglobin A1c Lab Routine Missed menses Ordered: 05/16/2024 [facility] Comment on above: Ordered: 05/16/2024 Hepatitis B virus surface Ag [Presence] in Serum or Plasma by Immunoassay Hepatitis B surface antigen Lab Routine Missed menses Ordered: 05/16/2024 [facility] Comment on above: Ordered: 05/16/2024 Hepatitis C virus Ab [Presence] in Serum or Plasma by Immunoassay Hepatitis C antibody Lab Routine Missed menses Ordered: 05/16/2024 [facility] Comment on above: Ordered: 05/16/2024 HIV-1/HIV-2 antigen/antibody combination immunoassay HIV-1 and HIV-2 antibodies Lab Routine Missed menses Ordered: 05/16/2024 [facility] Comment on above: Ordered: 05/16/2024 Neisseria gonorrhoea e DNA [Presence] in Unspecified specimen by XIOMARA with probe detection Neisseria gonorrhea DNA probe, direct Lab Routine Exposure to STD Ordered: 07/17/2024 [facility] Comment on above: Ordered: 07/17/2024 Reagin Ab [Presence] in Serum by RPR RPR Lab Routine Missed menses Ordered: 05/16/2024 [facility] Comment on above: Ordered: 05/16/2024 Rubella antibody, IgG Rubella an tibody, IgG Lab Routine Missed menses Ordered: 05/16/2024 [facility] Comment on above: Ordered: 05/16/2024 SURESWAB(R) ADVANCED VAGINITIS PLUS, TMA SURESWAB(R) ADVANCED VAGINITIS PLUS, TMA Pathology and Cytology Routine Vaginal discharge Ordered: 07/17/2024 [facility] Work Phone: Comment on above: Ordered: 07/17/2024 Payers Date Payer Category Payer Unknown [id number] 2023 [employer] [id number] 2023 Unknown BCBS BCBS xxxxxx [id number] 2023-Present [phone] [address] [place] [address] [id number] 2023 Unknown [id number] 1997 Unknown [id number] 93 1997 Unknown [id number] [id number] 93 1997 Unknown [id number] [id number] 259 1997 Unknown [id number] [id number] 259 1997 Unknown [id number] [id number] 259 1997 Unknown [id number] [id number] 259 1997 Unknown [id number] [id number] 259 1997 Unknown [id number] [id number] 259 1997 Unknown [id number] [id number] 259 1997 Unknown [id number] 2.16.840.1.820595.3.579.2.1 259 1997 Unknown [id number] [id number] 259 1997 Unknown [id number] 259 1959 Private Health Insurance [id number] 1959 Unknown [id number] Social History Date Type Detail Facility Start: 07-31-2023 Tobacco smoking stat [facility] Never smoked tobacco [facility] Start: 07-31-2023 Tobacco use and exposure Smokeless t obacco non-user [facility] Start: 05-16-2024 End: 10-09-2024 Alcoholic beverage intake Lifetime non-drinker (finding) [facility] Start: 07-31-2023 End: 04-07-2024 History of Social function [facility] Start: 07-31-2023 End: 04-07-2024 Tobacco use panel [facility] Start: 03-28-2024 [facility] Tyrel reece Start: 1995 Sex assigned at Female [facility] Start: 01-23-2023 Gender identity Identifies as female gender (finding) [facility] Clinical Notes 05-16-2024 to 10-23-2024 BHAVESH Javier - 10/23/2024 10:50 AM ESTSusan Spitler, MATA - 10/09/2024 10:40 AM ESTSusan Spitler, DAIRY MANAGER - 09/25/2024 9:00 AM BHAVESH Mares - [...] Morbid obesity with BMI of 40.0-44.9, adult ([facility]) Negative test On Depo-Provera for contraception HISTORY PAST MEDICAL HISTORY SOCIAL HISTORY Past Medical History: Diagnosis Date Depression screening Encounter for gynecological examination (general) (routine) without abnormal findings Family planning Insulin resistance Morbid obesity with BMI of 40.0-44.9, adult ([facility]) Negative test On Depo-Provera for [...] of: BHAVESH Javier documented in this encounter [facility] 10-09-2024 History of Presen t illness [...] Morbid obesity with BMI of 40.0-44.9, adult ([facility]) Negative test On Depo-Provera for contraception HISTORY PAST MEDICAL HISTORY SOCIAL HISTORY Past Medical History: Diagnosis Date Depression screening Encounter for gynecological examination (general) (routine) without abnormal findings Family planning Insulin resistance Morbid obesity with BMI of 40.0-44.9, adult ([facility]) Negative test On Depo-Provera for [...] nursing note reviewed. Exam conducted with a supervisor reinforced steel placing present. Vitals: Estimated body mass index is [...] Carrie Payan DO documented in this encounter [facility] 09-25-2024 History of Presen t illness [...] Morbid obesity with BMI of 40.0-44.9, adult ([facility]) Negative test On Depo-Provera for contraception HISTORY PAST MEDICAL HISTORY SOCIAL HISTORY Past Medical History: Diagnosis Date Depression screening Encounter for gynecological examination (general) (routine) without abnormal findings Family planning Insulin resistance Morbid obesity with BMI of 40.0-44.9, adult ([facility]) Negative test On Depo-Provera for [...] nursing note reviewed. Exam conducted with a supervisor reinforced steel placing present. Vitals: Estimated body mass index is [...] Carrie Payan DO documented in this encounter [facility] 2024 History of Presen t illness [...] Morbid obesity with BMI of 40.0-44.9, adult ([facility]) Negative test On Depo-Provera for contraception HISTORY PAST MEDICAL HISTORY SOCIAL HISTORY Past Medical History: Diagnosis Date Depression screening Encounter for gynecological examination (general) (routine) without abnormal findings Family planning Insulin resistance Morbid obesity with BMI of 40.0-44.9, adult ([facility]) Negative test On Depo-Provera for [...] nursing note reviewed. Exam conducted with a supervisor reinforced steel placing present. Vitals: Estimated body mass index is [...] of: BHAVESH Javier documented in this encounter [facility] 08-14-2024 History of Presen t illness [...] Morbid obesity with BMI of 40.0-44.9, adult ([facility]) Negative test On Depo-Provera for contraception HISTORY PAST MEDICAL HISTORY SOCIAL HISTORY Past Medical History: Diagnosis Date Depression screening Encounter for gynecological examination (general) (routine) without abnormal findings Family planning Insulin resistance Morbid obesity with BMI of 40.0-44.9, adult ([facility]) Negative test On Depo-Provera for [...] nursing note reviewed. Exam conducted with a supervisor reinforced steel placing present. Vitals: Estimated body mass index is [...] Carrie Payan DO documented in this encounter [facility] 07-17-2024 History of Presen t illness [...] Morbid obesity with BMI of 40.0-44.9, adult ([facility]) Negative test On Depo-Provera for contraception HISTORY PAST MEDICAL HISTORY SOCIAL HISTORY Past Medical History: Diagnosis Date Depression screening Encounter for gynecological examination (general) (routine) without abnormal findings Family planning Insulin resistance Morbid obesity with BMI of 40.0-44.9, adult ([facility]) Negative test On Depo-Provera for [...] nursing note reviewed. Exam conducted with a supervisor reinforced steel placing present. Vitals: Estimated body mass index is [...] Carrie Payan DO documented in this encounter [facility] 06-17-2024 History of Presen t illness [...] Morbid obesity with BMI of 40.0-44.9, adult ([facility]) Negative test On Depo-Provera for contraception HISTORY PAST MEDICAL HISTORY SOCIAL HISTORY Past Medical History: Diagnosis Date Depression screening Encounter for gynecological examination (general) (routine) without abnormal findings Family planning Insulin resistance Morbid obesity with BMI of 40.0-44.9, adult ([facility]) Negative test On Depo-Provera for [...] nursing note reviewed. Exam conducted with a supervisor reinforced steel placing present. Vitals: Estimated body mass index is [...] or undercooked meat, and stay away from [facility]. Patient has been consulted regarding any [...] Karla Burns PA-C documented in this encounter [facility] 05-16-2024 History of Presen t illness [...] Morbid obesity with BMI of 40.0-44.9, adult ([facility]) Negative test On Depo-Provera for [...] or undercooked meat, and stay away from [facility]. Patient has also been advised to [...] content) DATE CREATED AUTHOR 04/05/2022 Shawanda Lyle [facility] DATE CREATED AUTHOR AUTHOR'S ORGANIZ ATION 04/08/2022 [facility] DATE CREATED AUTHOR AUTHOR'S ORGANIZ ATION 10/25/2024 [facility] Care Teams (unrecognized sec tion and content) Computer Technical Support Specialist Relationship Specialty Start Date End Date Karla Ortega MD [address] [place] [phone] PCP - General Family Medicine 01/24/23 Computer Technical Support Specialist Relationship Specialty Start Date End Date Karla Ortega MD [address] [place] [place] [phone] PCP - General Family Medicine 01/24/23 [employer] Technical Support Specialist Relationship Specialty Start Date End Date Karla Ortega MD [address] [place] [phone] PCP - General Family Medicine 01/24/23 [employer] Specialist Relationship Specialty Start Date End Date Karla Ortega MD [address] [place] [phone] PCP - General Family Medicine 01/24/23 Computer Technical Support Specialist Relationship Specialty Start Date End Date Karla Ortega MD [address] [address] PCP - General Family Medicine 01/24/23 Computer Technical Support Specialist Relationship Specialty Start Date End Date Karla Ortega MD [address] [place] [address] PCP - General Family Medicine 01/24/23 Computer Technical Support Specialist Relationship Specialty Start Date End Date Karla Ortega MD [address] [place], [phone] PCP - General Family Medicine 01/24/23 Computer Technical Support Specialist Relationship Specialty Start Date End Date Karla Ortega MD [address] [place], [phone] PCP - General Family Medicine 01/24/23 Computer Technical Support Specialist Relationship Specialty Start Date End Date Karla Ortega MD [address] [place] [address] PCP - General Family Medicine 01/24/23 Computer Technical Support Specialist Relationship Specialty Start Date End Date Karla Ortega MD [address] [place] [phone] PCP - General Family Medicine 01/24/23 Computer Technical Support Specialist Relationship Specialty Start Date End Date Karla Ortega MD [address] [place] [phone] PCP - General Family Medicine 01/24/23 Reason [...] BE BASED ON THE PRIMARY CLINICAL RECORDS. [employer] [facility]. provides no warranty or guarantee of the accuracy or completeness of information in this document.
[2024-11-03 16:28] VITALS: BP 111/70; PULSE 102
== END 2024-11-03 17:00 | disposition home or self-care (01) ==
LOC: FBCO 02:33 → FBC 16:20
PROVIDERS: Visit Provider Obstetrics & Gynecology
DX: O36.60X0 Maternal care for excessive fetal growth, unspecified trimester, not applicable or unspecified (principal); Z3A.00 Weeks of gestation of pregnancy not specified
CPT/HCPCS: 59025

== ENCOUNTER 2024-11-06 01:53 | Outpatient (OUT) | payer BC, SELFPAY ==
--- NOTE | 2024-11-06 | US_ITS ---
[place] [id number] Patient Name: KAREEN FORMAN MRN: [id number] date: 1995 Sex: F Assigned Patient Location: [facility] Current Patient Location: Accession/Order Number: [id number] Exam Date: 11/06/2024 22:57 Report Date: 11/06/2024 22:59 At the request of: CARRIE ARREDONDO DO Procedure: US OB BPP w non-stress BPP. Reason for exam: Excessive growth. COMPARISON: BPP 10/23/2024 TECHNIQUE: Transabdominal imaging of the gravid uterus was obtained. FINDINGS: [employer] Faculty Member reports the BPP is 8 out of 8. JENS measures 16.5 cm. heart rate 159 bpm. US/US OB BPP w non-stress Impression: BPP 8 out of 8. Impression dictated by: Claudio Schuster Jr., D.O.11/06/2024 10:59 PM Dictation Location[facility] Electronically authenticated by: [id number] Y Date: 11/06/2024 22:59
--- NOTE | 2024-11-06 | US_ITS ---
The [address] [address] Patient Name: KAREEN FORMAN MRN: [id number] date: 1995 Sex: F Assigned Patient Location: [place] Current Patient Location: Accession/Order Number: [id number] Exam Date: 11/06/2024 22:55 Report Date: 11/06/2024 22:57 At the request of: CARRIE ARREDONDO DO Procedure: US OB growth Growth ultrasound. Reason for exam: Excessive growth. COMPARISON: Ultrasound 08/07/2024. TECHNIQUE: Transabdominal imaging of the gravid uterus was obtained. FINDINGS: Single live intrauterine 36 weeks 1 day by anatomic measurements with heart rate 159 bpm. This appears advanced for dating. Please note that abdominal circumference is greater than 97th percentile. Estimated weight is 2846 g which is the 95th percentile. JENS is normal 16.46 cm. position is cephalic. US/US OB growth IMPRESSION: Single live intrauterine 36 weeks 1 day by anatomic measurements which appears advanced for dating. Impression dictated by: Claudio Schuster Jr., D.O.11/06/2024 10:57 PM Dictation Location: [employer] Electronically authenticated by: [id number] Y Date: 11/06/2024 22:57
--- OUTSIDE RECORDS SUMMARY | 2024-11-06 01:56 | XMS_ITS | CCD ---
Author Organization [facility] Care Team Providers Care Instrumental Musician Name Role Phone DR CARRIE PAYAN Primary Care Unavailable ANGÉLICA NARAYANAN Attending Unavailable ANGÉLICA NARAYANAN Consulting Unavailable ANGÉLICA NARAYANAN Admitting Unavailable MARQUIS HENSON Consulting Unavailable DR CARRIE PAYAN Consulting Unavailable DR CARRIE PAYAN Primary Care Unavailable DR CARRIE PAYAN Admitting Unavailable DR CARRIE PAYAN Attending Unavailable Karla Ortega MD Primary Care Provider [phone] CARRIE PAYAN Attending Unavailable KARLA BURNS Attending [...] Facility OB BPP W NON-STRESS on 10-31-2024 [place] [address] Ultrasound Report Signed Patient: KAREEN FORMAN MR#: [id number] : 1995 Acct:[id number] Age/Sex: 29 / F ADM Date: 10/30/24 Loc: US Attending Dr: Carrie Payan D.O. Ordering Physician: Carrie Payan D.O. Date of Service: 10/30/24 Procedure(s): US OB BPP w non-stress Accession Number(s): [id number] cc: KARLA ORTEGA; Carrie Payan D.O. [place] [id number] Patient Name: KAREEN FORMAN MRN: [id number] date: 1995 Sex: F Assigned Patient Location: [facility] Current Patient Location: Accession/Order Number: [id number] Exam Date: 10/31/2024 10:24 Report Date: 10/31/2024 10:25 At the request of: CARRIE PAYAN DO Procedure: US OB BPP w non-stress BIOPHYSICAL PROFILE: CLINICAL INFORMATION: EXCESSIVE GROWTH AFFECTING O36.60X0 COMPARISON: 10/23/2024 There is a single live intrauterine gestation in cephalic presentation. Reported age is 32 weeks 6 days. The heart rate [id number] ( beats per minute. FINDINGS: TONE: 1 [...] Bita Mcdonough M.D.10/31/2024 10:25 AM Dictation Location: [place] [address] Electronically authenticated by: [id number] Y Date: 10/31/2024 10:25 Dictated By: Bita Mcdonough M.D. Signed By: 10/31/24 1027 DD/ 1025 TD/TT: Supervisor Offset Plate Preparation: [facility] Radiology, Radiologist, - 10/31/2024 [place] [address] Ultrasound Report Signed Patient: KAREEN FORMAN MR#: [id number] : 1995 Acct:[id number] Age/Sex: 29 / F ADM Date: 10/30/24 Loc: US Attending Dr: Carrie Payan D.O. Ordering Physician: Carrie Payan D.O. Date of Service: 10/30/24 Procedure(s): US OB BPP w non-stress Accession Number(s): [id number] cc: KARLA ORTEGA; Carrie Payan D.O. The [place] [id number] Patient Name: KAREEN FORMAN MRN: [id number] date: 1995 Sex: F Assigned Patient Location: [facility] Current Patient Location: Accession/Order Number: [id number] Exam Date: 10/31/2024 10:24 Report Date: 10/31/2024 10:25 At the request of: CARRIE PAYAN DO Procedure: US OB BPP w non-stress BIOPHYSICAL PROFILE: CLINICAL INFORMATION: EXCESSIVE GROWTH AFFECTING O36.60X0 COMPARISON: 10/23/2024 There is a single live intrauterine gestation in cephalic presentation. Reported age is 32 weeks 6 days. The heart rate ( beats per minute. FINDINGS: TONE: 1 [...] Bita Mcdonough M.D.10/31/2024 10:25 AM Dictation Location: [place] [address] Electronically authenticated by: [id number] Y Date: 10/31/2024 10:25 Dictated By: Bita Mcdonough M.D. Signed By: 10/31/24 1027 DD/ 1025 TD/TT: Supervisor Offset Plate Preparation: [facility] Radiology Study observation (narrative) [facility] OB BPP W NON-STRESS Ordered By: Radiologist Radiology on 10-31-2024 [facility] [employer] Work Phone: OB BPP W NON-STRESS on 10-23-[address] [address] Ultrasound Report Signed Patient: KAREEN FORMAN MR#: [id number] : 1995 Acct:[id number] Age/Sex: 29 / F ADM Date: 10/23/24 Loc: US Attending Dr: Carrie Payan D.O. Ordering Physician: Carrie Payan D.O. Date of Service: 10/23/24 Procedure(s): US OB BPP w non-stress Accession Number(s): [id number] cc: KARLA ORTEGA; Carrie Payan D.O. The [address] [address] Patient Name: KAREEN FORMAN MRN: [facility]:[id number] date: 1995 Sex: F Assigned Patient Location: [facility] Current Patient Location: US Accession/Order Number: [id number] Exam Date: 10/23/2024 13:18 Report Date: 10/23/2024 22:17 At the request of: CARRIE PAYAN DO Procedure: US OB BPP w non-stress BPP. Reason for exam: Excessive growth. COMPARISON: BPP 10/16/2024. TECHNIQUE: Transabdominal imaging of the gravid uterus was obtained. FINDINGS: Paving Bed Maker reports the BPP is 8 out of 8. JENS measures 13.1 cm. heart rate 161 bpm. US/US OB BPP w non-stress Impression: BPP 8 out of 8. Correlation with NST is recommended. Impression dictated by: Claudio Schuster Jr., D.O.10/23/2024 10:17 PM Dictation Location: [place] [address] Electronically authenticated by: [id number] Y Date: 10/23/2024 22:17 Dictated By: Claudio Schuster M.D. Signed By: 10/23/242218 DD/ 16 TD/TT: Supervisor Offset Plate Preparation: [facility] Radiology, Radiologist, - 10/23/[address] [address] Ultrasound Report Signed Patient: KAREEN FORMAN MR#: [id number] : 1995 Acct:[id number] Age/Sex: 29 / F ADM Date: 10/23/24 Loc: US Attending Dr: Carrie Payan D.O. Ordering Physician: Carrie Payan D.O. Date of Service: 10/23/24 Procedure(s): US OB BPP w non-stress Accession Number(s): [id number] cc: KARLA ORTEGA; Carrie Payan D.O. The [place] [address] Patient Name: KAREEN FORMAN MRN: [id number] date: 1995 Sex: F Assigned Patient Location: [facility] Current Patient Location: US Accession/Order Number: [id number] Exam Date: 10/23/2024 13:18 Report Date: 10/23/2024 22:17 At the request of: CARRIE PAYAN DO Procedure: US OB BPP w non-stress BPP. Reason for exam: Excessive growth. COMPARISON: BPP 10/16/2024. TECHNIQUE: Transabdominal imaging of the gravid uterus was obtained. FINDINGS: Paving Bed Maker reports the BPP is 8 out of 8. JENS measures 13.1 cm. heart rate 161 bpm. US/US OB BPP w non-stress Impression: BPP 8 out of 8. Correlation with NST is recommended. Impression dictated by: Claudio Schuster Jr., D.O.10/23/2024 10:17 PM Dictation Location: [place] [address] Electronically authenticated by: [id number] Y Date: 10/23/2024 22:17 Dictated By: Claudio Schuster M.D. Signed By: 10/23/242218 DD/ 16 TD/TT: Supervisor Offset Plate [facility] [employer] Radiology Study observation (narrative) [facility] US OB BPP W NON-STRESS Ordered By: Radiologist Radiology on 10-23-2024 [facility] [employer] Work Phone: Urinalysis macro (dipstick) panel (U)on 10-23-2024 Bilirubin, UA Negative Negative - 4(70) +++ mg/dL [facility] Blood, UA Negative Negative - 50 Roberto/mcL [facility] Clarity, UA Clear [facility] Healthca re Color, UA Yellow [facility] Glucose, UA Negative Negative - 1999(110) ++++ mg/dL [facility] Interpretation and review of laboratory results Abnormal [facility] Ketones, UA Negative Negative - 160(16) ++++ mg/dL [facility] Leukocytes, UA Trace Negative - 500+++ Christian/mcL [facility] Nitrite, UA Negative Negative - Positive [facility] pH, UA 6.5 5 - 9 [facility] Protein, UA Negative Negative - 1999(20) ++++ mg/dL [facility] Spec Grav, UA 1.025 1 - 1.[address] [facility] Urobilinogen, UA 1.0 0.2 - 12 mg/dL [facility] US OB BPP W NON-STRESS on 10-16-2024 [place] [address] Ultrasound Report Signed Patient: KAREEN FORMAN MR#: [id number] : 1995 Acct:[id number] Age/Sex: 29 / F ADM Date: 10/16/24 Loc: US Attending Dr: Carrie Payan D.O. Ordering Physician: Carrie Payan D.O. Date of Service: 10/16/24 Procedure(s): US OB BPP w non-stress Accession Number(s): [id number] cc: KARLA ORTEGA; Carrie Payan D.O. The [address] [address] Patient Name: KAREEN FORMAN MRN: [id number] date: 1995 Sex: F Assigned Patient Location: Current Patient Location: Accession/Order Number: [id number] Exam Date: 10/16/2024 13:57 Report Date: 10/16/2024 [...] Signed By: 10/16/24 1544 DD/ 154 TD/TT: Supervisor Offset Plate Preparation: [facility] Radiology, Radiologist, MD - 10/16/2024 [place] [address] Ultrasound Report Signed Patient: KAREEN FORMAN MR#: [id number] : 1995 Acct:[id number] Age/Sex: 29 / F ADM Date: 10/16/24 Loc: US Attending Dr: Carrie Payan D.O. Ordering Physician: Carrie Payan D.O. Date of Service: 10/16/24 Procedure(s): US OB BPP w non-stress Accession Number(s): [id number] cc: DANIEL ORTEGA Corey D.O. The [place] [address] Patient Name: KAREEN FORMAN MRN: [facility]:[id number] date: 1995 Sex: F Assigned Patient Location: US Current Patient Location: Accession/Order Number: [id number] Exam Date: 10/16/2024 13:57 Report Date: 10/16/2024 [...] Signed By: 10/16/24 1544 DD/ 154 TD/TT: Supervisor Offset Plate Preparation: [facility] [employer] Radiology Study observation (narrative) [facility] [employer] US OB BPP W NON-STRESS Ordered By: Radiologist Radiology on 10-16-2024 [employer] Work Phone: US OB FOLLOW UP TRANSABDOMIN [...] II, MD, PHD at 10-Oct-2024 07:43:20 AM [facility] Normal Not Available Comment on above: Order Comment: US OB SCAN FOR GROWTH Estimated Date of Delivery: 12/19/24 Gestational Age as of 09/25/2024: 27w6d Urinalysis macro (dipstick) panel (U)on 10-09-2024 Bilirubin, UA Negative Negative - 4(70) +++ mg/dL [facility] Blood, UA Negative Negative - 50 Roberto/mcL [facility] Clarity, UA Clear [facility] Healthca re Color, UA Yellow [facility] Health[facility] e Glucose, UA Positive Negative - 1999(110) ++++ mg/dL [facility] Comment on above: 100 Interpretation and review of laboratory results Abnormal [facility] Ketones, UA Positive Negative - 160(16) ++++ mg/dL [facility] Comment on above: 15 Leukocytes, UA Negative Negative - 500+++ Christian/mcL [facility] Nitrite, UA Negative Negative - Positive [facility] pH, UA 7 5 - 9 [facility] e Protein, UA Trace Negative - 1999(20) ++++ mg/dL [facility] Spec Grav, UA 1.025 1 - 1.[address] [facility] Urobilinogen, UA 0.2 0.2 - 12 mg/dL [facility] GLUCOSE TOLERANCE 3 HOURon 0 10-07-2024 GLUCOSE TOLERANCE 3 HOUR mg/dL [facility] Comment on above: GLU FAST 83 (<95) Co l: 10/07/24 0909 GLU 1HR 163 (<180) Col: 10/07/24 1012 GLU 2HR 146 (<155) Col: 10/07/24 1112 GLU 3HR 83 (<140) Col: 10/07/24 1212 CLINISYNC [facility] Healthcar e Urinalysis macro (dipstick) panel (U)on 09-25-2024 Bilirubin, UA Negative Negative - 4(70) +++ mg/dL [facility] Blood, UA Negative Negative - 50 Roberto/mcL [facility] Clarity, UA Clear [facility] Color, UA Yellow [facility] Glucose, UA Negative Negative - 1999(110) ++++ mg/dL [facility] Interpretation and review of laboratory results Abnormal [facility] Ketones, UA Negative Negative - 160(16) ++++ mg/dL [facility] Healthcare Leukocytes, UA Positive Negative - 500+++ Christian/mcL [facility] Healthcare Comment on above: small Nitrite, UA Negative Negative - Positive [facility] pH, UA 8.5 5 - 9 [facility] Protein, UA Negative Negative - 1999(20) ++++ mg/dL [facility] Spec Grav, UA 1.02 1 - 1.[address] [facility] Urobilinogen, UA 1.0 0.2 - 12 mg/dL [facility] Urinalysis macro (dipstick) panel (U)on 2024 Bilirubin, UA Negative Negative - 4(70) +++ mg/dL [facility] Blood, UA Negative Negative - 50 Roberto/mcL [facility] Healthcare Clarity, UA Clear [facility] Color, UA Yellow [facility] Glucose, UA Negative Negative - 1999(110) ++++ mg/dL [facility] Interpretation and review of laboratory results Abnormal [facility] Ketones, UA Negative Negative - 160(16) ++++ mg/dL [facility] Leukocytes, UA Moderate Negative - 500+++ Christian/mcL [facility] Nitrite, UA Positive Negative - Positive [facility] pH, UA 7 5 - 9 [facility] Healthcar e Protein, UA Positive Negative - 1999(20) ++++ mg/dL [facility] Comment on above: 100 Spec Grav, UA 1.02 1 - 1.[address] [facility] Urobilinogen, UA 1.0 0.2 - 12 mg/dL [facility] Urinalysis macro (dipstick) panel (U)on 08-14-2024 Bilirubin, UA Negative Negative - 4(70) +++ mg/dL [facility] Blood, UA Negative Negative - 50 Roberto/mcL [facility] Healthcare Clarity, UA Clear [facility] Color, UA Yellow [facility] Glucose, UA Negative Negative - 1999(110) ++++ mg/dL [facility] Interpretation and review of laboratory results Abnormal [facility] Ketones, UA Negative Negative - 160(16) ++++ mg/dL [facility] Leukocytes, UA Negative Negative - 500+++ Christian/mcL [facility] Nitrite, UA Negative Negative - Positive [facility] pH, UA 5.5 5 - 9 [facility] e Protein, UA Negative Negative - 1999(20) ++++ mg/dL [facility] Spec Grav, UA 1.02 1 - 1.[address] [facility] Urobilinogen, UA 1.0 0.2 - 12 mg/dL [facility] Health[facility] e ALL CBC WITH AUTO DIFFon BASOPHILS ABSOLUTE AUTO 0 [facility] Basophils/100 WBC (Bld) 0.3 % 0.2 - 2.0 % [facility] Eosinophils/100 WBC (Bld) 0.9 % 0.9 - 7.0 % [facility] Erythrocyte distribution width (RBC) [Ratio] 14.8 % 11.0 - 15.0 % [facility] Hematocrit (Bld) [Volume fraction] 36.3 % 36.0 - 48.0 % [facility] e Hemoglobin (Bld) [Mass/Vol] 11.9 g/dL Low 12.0 - 16.0 g/dL [facility] IMMATURE GRANULOCYTES ABS AUTO 0.04 High [facility] Immature granulocytes/100 WBC (Bld) 0.4 % 0.0 - 0.5 % [facility] Interpretation and review of laboratory results Abnormal [facility] LYMPHOCYTES ABSOLUTE AUTO 1.6 [facility] Lymphocytes/100 WBC (Bld) 15 % Low 20.5 - 60.0 % [facility] MCH (RBC) [Entitic mass] 27.2 pg 26.7 - 34.0 pg [facility] MCHC (RBC) [Mass/Vol] 32.8 g/dL 29.9 - 35.2 g/dL [facility] MCV (RBC) [Entitic vol] 83.1 fL 81.0 - 99.0 fL [facility] MONOCYTES ABSOLUTE AUTO 0.8 [facility] Monocytes/100 WBC (Bld) 7.4 % 1.7 - 12.0 % [facility] NEUTROPHILS ABSOLUTE AUTO 7.8 High [facility] Neutrophils/100 WBC (Bld) 76 % High 43.0 - 75.0 % [facility] Platelet mean volume (Bld) [Entitic vol] 9.2 fL Low 9.5 - 13.5 fL [facility] EO # 0.1 [facility] PLT 322 [facility] RBC 4.37 [facility] WBC 10.3 [facility] GLUCOSE 1 HOURon 07-30-2024 Glucose [Mass/Vol] 173 mg/dL High NINF - 13 0 mg/dL [facility] Interpretation and review of laboratory results Abnormal [facility] Healthcare [facility] Healthcar e RECURRENT VAGINITIS (HTRX)on 07-18-2024 ATOPOBIUM VAGINAE 21.066 Abnormal [facility] ATOPOBIUM VAGINAE Detected Abnormal [facility] althcare BVAB 2,3 (BACTERIAL VAGINOSIS ASSOCIATED BACTERIA 2, 3); MOBILUNCUS SPP 20.228 Abnormal [facility] Healthcare BVAB 2,3 (BACTERIAL VAGINOSIS ASSOCIATED BACTERIA 2, 3); MOBILUNCUS SPP Detected Abnormal [facility] BLANCA ALBICANS, PARAPSILOSIS, TROPICALIS 0 [facility] BLANCA ALBICANS, PARAPSILOSIS, TROPICALIS Not detected [facility] Healthcare BLANCA GLABRATA 0 [facility] BLANCA GLABRATA Not [facility] KRUSEI [facility] BLANCA KRUSEI Not detected [facility] CHLAMYDIA TRACHOMATIS 0 [facility] CHLAMYDIA TRACHOMATIS Not detected [facility] ERMB, C; MEFA 26.225 Abnormal [facility] care ERMB, C; MEFA Detected Abnormal [facility] care GARDNERELLA VAGINALIS 21.744 Abnormal [facility] GARDNERELLA VAGINALIS Detected Abnormal [facility] Interpretation and review of laboratory results Abnormal [facility] Healthcare MEGASPHAERA (TYPES 1, 2) 0 [facility] MEGASPHAERA (TYPES 1, 2) Not detected [facility] MYCOPLASMA GENITALIUM 0 [facility] MYCOPLASMA GENITALIUM Not detected [facility] NEISSERIA GONORRHOEAE 0 [facility] NEISSERIA GONORRHOEAE Not detected [facility] TET B, TET M 24.757 Abnormal [facility] Healthc are TET B, TET M Detected Abnormal [facility] Healthc are TRICHOMONAS VAGINALIS 0 [facility] TRICHOMONAS VAGINALIS Not detected [facility] Urinalysis macro (dipstick) panel (U)on 07-17-2024 Bilirubin, UA Negative Negative - 4(70) +++ mg/dL [facility] Blood, UA Negative Negative - 50 Roberto/mcL [facility] Clarity, UA Clear [facility] Healthca re Color, UA Yellow [facility] Healthcar e Glucose, UA Negative Negative - 1999(110) ++++ mg/dL [facility] Interpretation and review of laboratory results Abnormal [facility] Ketones, UA Positive Negative - 160(16) ++++ mg/dL [facility] Leukocytes, UA Trace Negative - 500+++ Christian/mcL [facility] Nitrite, UA Negative Negative - Positive [facility] pH, UA 5.5 5 - 9 [facility] Healthcar e Protein, UA Trace Negative - 1999(20) ++++ mg/dL [facility] Spec Grav, UA 1.03 1 - 1.[address] [facility] Urobilinogen, UA 0.2 0.2 - 12 mg/dL [facility] Urinalysis macro (dipstick) panel (U)on 06-17-2024 Bilirubin, UA Negative Negative - 4(70) +++ mg/dL [facility] Blood, UA Negative Negative - 50 Roberto/mcL [facility] Clarity, UA Clear [facility] Healthca re Color, UA Yellow [facility] Healthcar e Glucose, UA Negative Negative - 1999(110) ++++ mg/dL [facility] Interpretation and review of laboratory results Abnormal [facility] Ketones, UA Negative Negative - 160(16) ++++ mg/dL [facility] Leukocytes, UA Negative Negative - 500+++ Christian/mcL [facility] Nitrite, UA Negative Negative - Positive [facility] pH, UA 6 5 - 9 [facility] Healthcar e Protein, UA Positive Negative - 1999(20) ++++ mg/dL [facility] Comment on above: 100 Spec Grav, UA 1.03 1 - 1.[address] [facility] Urobilinogen, UA 0.2 0.2 - 12 mg/dL [facility] ALL CBC WITH AUTO DIFFon BASOPHILS ABSOLUTE AUTO 0.0 [facility] Basophils/100 WBC (Bld) 0.4 % 0.2 - 2.0 % [facility] Eosinophils/100 WBC (Bld) 1.1 % 0.9 - 7.0 % [facility] Erythrocyte distribution width (RBC) [Ratio] 14.2 % 11.0 - 15.0 % [facility] Hematocrit (Bld) [Volume fraction] 39.3 % 36.0 - 48.0 % [facility] Healthcar e Hemoglobin (Bld) [Mass/Vol] 12.8 g/dL 12.0 - 16.0 g/dL [facility] Healthcare IMMATURE GRANULOCYTES ABS AUTO 0.02 [facility] Immature granulocytes/100 WBC (Bld) 0.3 % 0.0 - 0.5 % [facility] Interpretation and review of laboratory results Abnormal [facility] LYMPHOCYTES ABSOLUTE AUTO 1.6 [facility] Lymphocytes/100 WBC (Bld) 21.5 % 20.5 - 60.0 % [facility] MCH (RBC) [Entitic mass] 26.8 pg 26.7 - 34.0 pg [facility] MCHC (RBC) [Mass/Vol] 32.6 g/dL 29.9 - 35.2 g/dL [facility] MCV (RBC) [Entitic vol] 82.2 fL 81.0 - 99.0 fL [facility] MONOCYTES ABSOLUTE AUTO 0.4 [facility] Monocytes/100 WBC (Bld) 5.1 % 1.7 - 12.0 % [facility] NEUTROPHILS ABSOLUTE AUTO 5.3 [facility] Neutrophils/100 WBC (Bld) 71.6 % 43.0 - 75.0 % [facility] Platelet mean volume (Bld) [Entitic vol] 9.2 fL Low 9.5 - 13.5 fL [facility] Healthc are TBH EO # 0.1 [facility] Healthcar e TB PLT 324 [facility] RBC 4.78 [facility] Healthcar e TB WBC 7.4 [facility] e [facility] Health[facility] e HCG ( test) Ql (U)o n 05-16-2024 Interpretation and review of laboratory results Abnormal [facility] Preg Test, Ur Positive [facility] care [facility] Cytology Cervical or vaginal smear or scraping studyOrdered By: Shiela Flowers on 04-07-2024 [facility] Coding Summary.on 04-07-2022 Coding Summary. CD:[id number] G h0bWw+PGhlYWQ+CB8UIUU fC32dtFXaoO8MR9cRIF2G KJGWNBIGYK3GLW3haWX8T JmoT2DejiKe UsxloAGrPF04BHx4EJL4w XmlYPagcH3uxLVnL2o0Ps TbTR77pG68OEahEZBqTkX 3LjZpbjsgbWFy X1cvSsMavLNpZbp+PHRhY mxlIHdpZHRoPScxMDAlJy RukNeaOU9xWo6vLAKpVAB vbGxhcHNlOiBj l2iiHVOdADjuMU9dcIllS 2WlwXB8ODLtd4o3Zo70hK I+XJAoRAQ5aWyyBOjrd75 8VwIok6scPZP1 cBJtCUpnUJP7Y04cz8Q2N RQxZAIbSCH2hMX8zW3jtS oxpbjpA1UviEMdHfY2DQL 9lNBbiL0crWdk ljxdlQ5iPjv+I66ERB8EE HKJUU5GLho0O7UuMoikaK I+VJ89HTMwXL44mLLefSE fk1lreFo4TgNd EGHrSDC0hWlmMOutv2CcN IMuP88uyZDsx2B1TLOlsI cckYKyVbJadAU2gL9dWWn kxptjw7mjkujv Kzeop2aoob72cB82V54hM GozJQWhCKC0YXHbVQLboO hmpk4dyS0pBx9+CCpht6c as7vdrQv2EmYf ETEwwiRvkRmtYZL3b9FoE r28N0GutVqzr7RcTpp6sl 70eJBtl2Q5qBD6VLlkKJY mfC6dGImuHtU9 OGXoRsXhwO19aVScPCcyX b7rrNyzaLhaDN9hUNNmmg knZCGbwK5aQVCduAFwmWx vIW6aWBXadhxr n581KiLpEHX5OMEbeNKgV 0HwnU7rGrTiVZReEQDuR5 RgaCLmWZjdF321YCnyUbW 4DCFjiiZeI2Fj YXWyjVdfYeK9p9Y0Eg7Pg 2VurrqrRCW8PFinGOM2Qj S7NyVgAuJ7Y4DkCkv2WSE qxEyvKV8dH5Fe IJMasuljjzjadSV6CYFaK DTrwV72qMWdPPznGi5th9 D0v157PWTdDKPwbI36Qp6 udDogMTBwdCBU rS0nettwl7czcskiFkBvS QQfMYx8MDe8VJMeoLjcKa CaOWN6XwY9CSP0gZFmxM7 hpKlnwufgpN0q Oyc+M02ccX2sTBL1HJY8r ndiAPUqhgEvPP89IQ98G0 RyPjwvdGFibGU+PGRpdiB ohWojAA5mOyPg r6fqp2ThPXybU0PvNHFeL GgnDfc6DMDyTMV2qCS9oA 2jIATsQNjbe2Y4iCR2H3N ebtKoge5jf3rr WLUlTUptR44uoSDfc9U6W ZXagSI4VBIepPdrJlUhvI 93Oyc+YTJkxJuwp5VhTaa ra4wez9fyiQy2 EbBdAFVtisByvRqpGIO7p 2RjWy07S82wCOlcCDOpYZ PpCGRkMEVepLoqrh7yfB4 wIi8+PGNvbCB3 bWI9kY1yMIUaUiZ9HUakK 268QzDggTFxKzvpc1piw7 mbkRw7LeXjGNBdqcAmdCq wBYT8p8EuTy01 Y27sIEkcGOSgDQNqCIWmK GNmjUzzmj3ohT4gYj5+PC 6gd9xxqu65eL65iIO+PHR aQVB7dNhiRUvh MQInjJ1tDXdhLbE1PTZeH nJjuH39xZBcJTqfJd5dsR bqpYxmUM3fYBNsmslpc97 1LfZcb6tvWXUu qBPyDYpmAXQ7S75eo8F1D XPbEGHkNFC6aEJ8xS8ahM lnbjogbGVmdDsgdmVydGl yMYybYYalE557 IHRvcDsnPlBhdGllbnQgT zZlXSa5K0NkMls3WVNfkI ovKE6fgKNiTRngNh4biUi jlYntFP5eAPXx sotzj139RiHae2byDWPau AFoXGzlDJW8G98dw1X3OQ YnSFGpYQV0pFG5zW7geSf nbjogbGVmdDsg tcRocLvgMSygLJvwK256V HRvcDsnPkJpcnRoIERhdG X8PL31PV05yPDng9J6gRD 3O6OdNQJbkguh jmcajEW6DOBuPTBgpN52X l4sgSymPc4rKDOsRUI7FV EzhGJkU7HizI0kRqMlHWH nKMUdV1MzeYMn FEtkS686BFumMpC3QWCxn kIaR1MfSCAbdSmsDxI8o9 J2Jk5MN9M5LA60ON40cCL so1Y3ePI6B9Og ANTggivcettslOA9OVXkZ VPttM88Ml2hkCbnMn1iPE OmRJT9YKVbcYXxP8IxaZ9 yOiAjMDAwMDAw G7ZymHQaFQaaZ654GEwcV xR5QOChcbIfF2AbTTPubW yjFlT8c9S2Vi5YXNk0VC7 8VO47nBKik1T0 cJC3C0FvDRWvkhcorkuuh HA9CCItDUMesT70Bk0ndT weLi3nEFRiHYN9OWDjkGL hO5KukV9wJhGg KZRdLVPaI0XppAVgSNyaO 253JZrdTjK6BMIshnSmJ3 WgRFKvpJsnWcT7h5F6Pz2 PKJOjRG73FAB1 fXM4MI22PK58C9KgWrhqy GFibGU+PHRhYmxlIHdpZH RoPScxMDAlJyBzdHlsZT0 wYv9yKNOpFSFt bMeysGVuLmAqj3poJXRnO GmcCC8ykRkzU9NmuWI2NH Ykz7v1Ug26B50jU7TirGP +OUZyyHA3cJN5 jF6lKuMvRqJ6GTvyB257Y yAehBZgMzain8ang0kdwC y1PzJ0NVYafwGtoMhbKSI 2c2CxVz36M91x IHdpZHRoPSIxNSUiIHZhb Utudl7fxG0kSl0+PGNvbC Q0xAF4zV4fGxGrJaY7OOk bW972EiWjtDVj Qidrn7zsq0mzrIt9YqNeB MJuvoIiaBopULN0e4NiGv 99J4XbtDqwr9CrItr8xu2 1aZKtd8A3hJN5 D5KvKPZhbxckkBVghTqqI J2dQGVhqwzgNZTzrR9yAN KnB5r0XdUdRgO3KOlyK1D dvtL4IPZfrXIz VUpgHSV9T35hs0Y6CINlG OUdLMM5bVX5nK6xmBtpiw ogbGVmdDsgdmVydGljYWw rJUprS806ULIv kOgvMLNcrJ2oIYWrhKFjt QnsKD6oVRCkrfknEqFROM BQLCBIQUxFWSBOSUNPTEU 0E5PfHku6OIFj lUitZJ8igJNpBNvvKr5gz JzltUrcBK3kUAYyfsxpKD QxcR7bVPHlxIQcqHyuUQ3 zVCLhllguv018 MzGxVGP7IOJtkMMpK4Sxu C7xDbXgTZFrOFVpU9AfbI FvKOjvD649SZmzZyZ5JHT gbcKhF9NeLTEg nNbvMnY9e5Q4Ua2yXF6rT I8tYAo1WP59OQ28yWWcz2 G1cJV1T7OkIOXkcumdxju ccUL5IBHzXVRm mB30zSWeYIogNv8ae4X8t 098LGGtNVBmdQ89Lj7ucI buGJGqyBEBgZ6ctasxe3t vcjogIzAwMDAw BGz8BOi3FGAbzLfsWlJeG QC1BfK1UEM1mHVqsT6vlH yumawyiC0vJjc+MjQgWWV bncK7G1KyYcr2 DVKecKkdUR7tuCMaCCzwA n2kdVdsxBccJD3lRCVumh zrYEHegY8dGOZbsJOccBr vVE7rQFLkabjr p199HkFeZGG2LRDwjWQeI 0PbdY0xZzHtPZWtBDJlQ0 DniPWjRXanI500IVjlVdD 5ZFXrcwFyR7Vd MINkpZbkKbS4v4F7Wl6CO Y5kcCQ7J9XnYsn7MQOynL ajPK8mdVMoHQwwKn7scZt osQkmQY7mKOOr jmrlMFSpyB8nFABnfBKri XvvBR4yOKVkumjtu011Py AjKES1OHEbrMTxD6EzcN7 yOiAjMDAwMDAw F3XzcVCcKNwpN991CMrdH pM0UQEklgHxD2SgIXEwiF jxUsF3n3S3Ce0SdWSbHCE dVX36BH89OC52 J8FyJxwbcAYjyLX+PHRhY mxlIHdpZHRoPScxMDAlJy ChjTjvVK2fGj2kTOFzJTL vbGxhcHNlOiBj h3otROOsPHsoOC2irYdhO 0UrsTG3UBAnq3w1Ym98U7 7fG4MedLH+TQXzzZA1lVN 8lM4kIfEbXzR9 XAejM759PbBzbFOuOeqog 5ahv3nrqRh7ZuAqGTTdmd JepIpvEFK3q4BxTn59M00 sIHdpZHRoPSIy UKQwNRBgxWzbap9drL1jI i8+QWXtzCP9eSI2sN7pHa UjXwA3QNbyM862VwKucZF vOqfyS77yM7Ma dXA+IRUgYdm3JBNgvOhbL O6qjIYrYYrpRk9qQMU7Pk OrDpOtAEvpU7UjVVJixeb qxwphvDV5THFz FXMohU13Vu3gtJilMa6jR WZzAGY9DZVplABdY1ZfrB 8dUkEgRPFiYVDgM4CdaPX oQJucE038RTyd JrP7FEDyvpLeX6GnCUKcz ZckWfC3o6D8Ac3TzHjucX RuXB8mUdBpUHs2U1LhQir 0UUQauKftOY8o bTCcRCmdDn2xvHedaXmfU E4fFUPvvejqv595IpYdr6 ipYWNebMQyUUchRBH7K07 km7P2ZUKaTHXo HND5hHD9uH4ziJcobpftw GVmdDsgdmVydGljYWwtYW caS122MVSosRorYxLJPaa 2O2QaImz8HHDx dJfpAU1mwASrWArtMw4xy DrovNwhUP5aUGJtgsahe6 17ZfYyb1azYXYqpTIfBCj aMQO7E90tw0E4 XNGpMGYiWUN8zFC0yH5ry GlnbjogbGVmdDsgdmVydG ivTIhfNYgzC449WIJueJb hJw3HPjk6U8Oi Aoe8IXWsbTfcZN8chHEvY JbkVd7ilPizuJdlKO6oEN Mokxuuc621IlOxm9baJBU wcHQgVGltZXM7 C18gj9M4BNQmJZYwESF5k QQ2fM5mxXtzykfmhWHqqC opdxMjkSxnPMhsXRtrB10 6IHRvcDsnPlBh eWVyOjwvdGQ+UO25te16I 3IzNlbtClt4FCJbLIP0nG M0kP5fOYRvGZmky9J1aSO 6R7XifcVeoc7e b2xs (more content not included)... Normal [facility] XR Ankle 3+ Views Lefton XR [...] Howell M.D. Transcribed by: JENN Technologist: [facility] Consent for Treatmenton Consent for Treatment [id number] .00CD:127 [facility] Physician Orderon 04-03-2022 Physician Order [id number] 1.00CD:127 Normal [facility] XR ANKLE LT MIN 3 Von [...] by: MARQUIS HENSON Date: 2022-03-11 16:04 Normal [facility] PAP ACOG PANEL 2: 21 to 29on 10-24-2021 . . Normal [facility] Comment on above: Performed By: #### [id number] #### [facility] [address] [place] [address] Dr. Aura Wu Gdln ACOG Testing 21- Normal [facility] Comment on above: Performed By: #### [id number] #### [facility] [address] [place] [address] Dr. Aura Griffiths DIAGNOSIS: Comment Normal [facility] Comment on above: Result Comment: NEGA TIVE FOR INTRAEPITHELIAL LESION OR MALIGNANCY. Performed By: #### [id number] #### [facility] [address] [place] [address] Dr. Aura Griffiths Methodology: Comment Normal [facility] Comment on above: Result Comment: This liquid based ThinPrep(R) pap test was screened with the use of an image guided system. Performed By: #### [id number] #### [facility] [address] [place] [address] Dr. Aura Griffiths Note: Comment Normal [facility] Comment on above: Result Comment: The Pap smear is a screening test designed to aid in the detection of premalignant and malignant conditions of the uterine cervix. It is not a diagnostic procedure and should not be used as the sole means of detecting cervical cancer. Both false-positive and false-negative reports do occur. . Performed By: #### [id number] #### [facility] [address] [place] [address] Dr. Aura Griffiths Performed by: Comment Normal [facility] Comment on above: Result Comment: Radha Trevino, Referral And Information Aide (ASCP) Performed By: #### [id number] #### [facility] [address] [place] [address] Dr. Aura Griffiths Reflex Criteria: Comment Normal [facility] Comment on above: Result Comment: The HPV DNA reflex criteria were not met with this specimen result therefore, no HPV testing was performed. . Performed By: #### [id number] #### [facility] [address] [place] [address] Dr. Aura Griffiths Specimen adequacy: Comment Normal [facility] Comment on above: Result Comment: Sati sfactory for evaluation. Endocervical and/or squamous metaplastic cells (endocervical component) are present. Performed By: #### [id number] #### [facility] [address] [place] [address] Dr. Aura Griffiths Vital Signs Date Time Vital Sign Value Performing Clinician Faci lity 10-23-2024 11:16-0500 Body mass index (BMI) [Ratio] 45.66 kg/m2 Karla OSPINA Work Phone: [facility] 10-23-2024 11:16-0500 Body weight 120.66 kg Karla OSPINA Work Phone: [facility] 10-23-2024 11:16-0500 Diastolic blood pressure 80 mm[Hg] Karla OSPINA Work Phone: [facility] 10-23-2024 11:16-0500 Systolic blood pressure 124 mm[Hg] Karla Burns PA Work Phone: [facility] 10-09-2024 10:43-0500 Body mass index (BMI) [Ratio] 46.17 kg/m2 Carrie Ora DO Work Phone: [facility] 10-09-2024 10:43-0500 Body weight 122.02 kg Carrie Ora DO Work Phone: [facility] 10-09-2024 10:43-0500 Diastolic blood pressure 70 mm[Hg] Carrie Ora DO Work Phone: [facility] 10-09-2024 10:43-0500 Systolic blood pressure 120 mm[Hg] Carrie Ora DO Work Phone: [facility] 09-25-2024 08:58-0500 Body mass index (BMI) [Ratio] 45.49 kg/m2 Carrie Ora DO Work Phone: [facility] 09-25-2024 08:58-0500 Body weight 120.2 kg Carrie Ora DO Work Phone: [facility] 09-25-2024 08:58-0500 Diastolic blood pressure 72 mm[Hg] Carrie Ora DO Work Phone: [facility] 09-25-2024 08:58-0500 Systolic blood pressure 122 mm[Hg] Carrie Ora DO Work Phone: [facility] 2024 09:48-0500 Body mass index (BMI) [Ratio] 44.97 kg/m2 Karla Burns PA Work Phone: [facility] 2024 09:48-0500 Body weight 118.84 kg Karla Burns PA Work Phone: [facility] 2024 09:48-0500 Diastolic blood pressure 70 mm[Hg] Karla Burns PA Work Phone: [facility] 2024 09:48-0500 Systolic blood pressure 120 mm[Hg] Karla Burns PA Work Phone: [facility] 08-14-2024 11:20-0500 Body mass index (BMI) [Ratio] 44.53 kg/m2 Carrie Ora DO Work Phone: [facility] 08-14-2024 11:20-0500 Body weight 117.66 kg Carrie Ora DO Work Phone: [facility] 08-14-2024 11:20-0500 Diastolic blood pressure 82 mm[Hg] Carrie Ora DO Work Phone: [facility] 08-14-2024 11:20-0500 Systolic blood pressure 124 mm[Hg] Carrie Ora DO Work Phone: [facility] 07-17-2024 10:48-0500 Body mass index (BMI) [Ratio] 45.28 kg/m2 Carrie Ora DO Work Phone: [facility] 07-17-2024 10:48-0500 Body weight 119.66 kg Carrie Ora DO Work Phone: [facility] 07-17-2024 10:48-0500 Diastolic blood pressure 70 mm[Hg] Carrie Ora DO Work Phone: [facility] 07-17-2024 10:48-0500 Systolic blood pressure 120 mm[Hg] Carrie Ora DO Work Phone: [facility] 06-17-2024 10:48-0400 Body mass index (BMI) [Ratio] 44.99 kg/m2 Carrie Ora DO Work Phone: [facility] 06-17-2024 10:48-0400 Body weight 118.9 kg Carrie Ora DO Work Phone: [facility] 06-17-2024 10:48-0400 Diastolic blood pressure 70 mm[Hg] Carrie Ora DO Work Phone: [facility] 06-17-2024 10:48-0400 Systolic blood pressure 120 mm[Hg] Carrie Ora DO Work Phone: [facility] 05-16-2024 09:16-0400 Body mass index (BMI) [Ratio] 46 kg/m2 [facility] 05-16-2024 09:16-0400 Body weight 121.56 kg [facility] 05-16-2024 09:16-0400 Diastolic blood pressure 70 mm[Hg] [facility] 05-16-2024 09:16-0400 Systolic blood pressure 120 mm[Hg] [facility] Encounters Encounter Date Encounter Type Care [...] of Start: 10-23-2024 End: 10-23-2024 ambulatory KARLA BURSN Not Available Start: 10-16-2024 End: 10-16-2024 Clinisync [...] PM EST Routine [facility] [address] [place] [id number] Karla Burns PA [address] [place] [address] [facility] Start: 10-23-2024 End: 10-23-2024 [...] AM EST Routine [facility] [address] [place] [address] Carrie Payan, DO [address] [place] [address] [facility] Start: 10-09-2024 End: 10-09-2024 Professional / ancillary services management 10/09/2024 10:00 AM EST Ancillary Procedure [facility] [address] [place] [address] [facility] Start: 09-25-2024 End: 09-25-2025 Measurement of glucose 3 hours after glucose challenge for glucose tolerance test Glucose tolerance, 3 hours Lab Routine Elevated glucose tolerance test Expected: 09/25/2024 (Approximate), Expires: 09/25/2025 [facility] Comment on above: Expected: 09/25/2024 [...] EST Ancillary Procedure [facility] [address] [place] [id number] [facility] Start: 07-17-2024 End: 09-16-2024 [...] anatomic survey Expected: 07/17/2024 (Approximate), Expires: 07/17/2025 [facility] Comment on above: Expected: 07/17/2024 (Approximate), Expires: 07/17/2025 Start: 07-15-2024 End: 07-15-2024 Patient encounter procedure 07/15/2024 10:50 AM EST Routine [facility] [address] [place] [address] Carrie Payan, [address] [place] [address] [facility] Start: 06-17-2024 End: 06-17-2024 Patient encounter procedure [facility] Comment on above: Arrived Start: 05-16-2024 End: 05-16-2025 ABO/Rh ABO/Rh Lab Routine Missed menses Expected: 05/16/2024 (Approximate), Expires: 05/16/2025 [facility] Comment on above: Expected: 05/16/2024 (Approximate), Expires: 05/16/2025 Start: 05-16-2024 End: 05-16-2025 Blood type and Indirect antibody screen panel - Blood Type and screen Lab Routine Missed menses Expected: 05/16/2024 (Approximate), Expires: 05/16/2025 [facility] Work Phone: Comment on above: Expected: 05/16/2024 (Approximate), Expires: 05/16/2025 Start: 05-16-2024 End: 05-16-2025 Drugs of abuse panel - Urine by Screen method Rapid drug screen, urine Lab Routine Encounter for supervision of normal first in first trimester , unspecified gestational age Expected: 05/16/2024 (Approximate), Expires: 05/16/2025 [facility] Comment on above: Expected: 05/16/2024 (Approximate), Expires: 05/16/2025 Start: 05-16-2024 End: 05-16-2025 US Pelvis transvaginal US OB transvaginal Imaging Routine Missed menses Expected: 05/16/2024 (Approximate), Expires: 05/16/2025 [facility] Comment on above: Expected: 05/16/2024 (Approximate), Expires: 05/16/2025 Bacteria identified in Urine by Culture Urine culture Microbiology Routine Missed menses Ordered: 05/16/2024 [facility] Comment on above: Ordered: 05/16/2024 Bacteria identified in Urine by Culture Urine culture Microbiology Routine UTI symptoms Ordered: 2024 [facility] Work Phone: Comment on above: Ordered: 2024 CBC W Auto Different ial panel - Blood CBC and differential Lab Routine Missed menses Ordered: 05/16/2024 [facility] Comment on above: Ordered: 05/16/2024 CHLAMYDIA TRACHOMATI S (GENITO/STI) CHLAMYDIA TRACHOMATIS (GENITO/STI) Lab Routine Exposure to STD Ordered: 07/17/2024 [facility] Comment on above: Ordered: 07/17/2024 Hemoglobin A1c/Hemoglobin.total in Blood Hemoglobin A1c Lab Routine Missed menses Ordered: 05/16/2024 [facility] Comment on above: Ordered: 05/16/2024 Hepatitis B virus surface Ag [Presence] in Serum or Plasma by Immunoassay Hepatitis B surface antigen Lab Routine Missed menses Ordered: 05/16/2024 [facility] Comment on above: Ordered: 05/16/2024 Hepatitis C virus Ab [Presence] in Serum or Plasma by Immunoassay Hepatitis C antibody Lab Routine Missed menses Ordered: 05/16/2024 [facility] Comment on above: Ordered: 05/16/2024 HIV-1/HIV-2 antigen/antibody combination immunoassay HIV-1 and HIV-2 antibodies Lab Routine Missed menses Ordered: 05/16/2024 [facility] Comment on above: Ordered: 05/16/2024 Neisseria gonorrhoea e DNA [Presence] in Unspecified specimen by XIOMARA with probe detection Neisseria gonorrhea DNA probe, direct Lab Routine Exposure to STD Ordered: 07/17/2024 [facility] Comment on above: Ordered: 07/17/2024 Reagin Ab [Presence] in Serum by RPR RPR Lab Routine Missed menses Ordered: 05/16/2024 [facility] Comment on above: Ordered: 05/16/2024 Rubella antibody, IgG Rubella an tibody, IgG Lab Routine Missed menses Ordered: 05/16/2024 [facility] Comment on above: Ordered: 05/16/2024 SURESWAB(R) ADVANCED VAGINITIS PLUS, TMA SURESWAB(R) ADVANCED VAGINITIS PLUS, TMA Pathology and Cytology Routine Vaginal discharge Ordered: 07/17/2024 [facility] Work Phone: Comment on above: Ordered: 07/17/2024 Payers Date Payer Category Payer Unknown [id number] 2023 [employer] Blue [employer] [id number] 2023 Unknown BCBS BCBS xxxxxx [id number] 2023-Present [phone] [address] [place] [address] [id number] 2023 Unknown [id number] 1997 Unknown [id number] 93 1997 Unknown [id number] 93 1997 Unknown [id number] 259 1997 Unknown [id number] [id number] 259 1997 Unknown [id number] [id number] 259 1997 Unknown [id number] [id number] 259 1997 Unknown [id number] [id number] 259 1997 Unknown [id number] [id number] 259 1997 Unknown [id number] [id number] 259 1997 Unknown [id number] [id number] 259 1997 Unknown [id number] [id number] 259 1997 Unknown [id number] 259 1959 Private Health Insurance [id number] 1959 Unknown [id number] Social History Date Type Detail Facility Start: 07-31-2023 Tobacco smoking stat [facility] Never smoked tobacco [facility] Start: 07-31-2023 Tobacco use and exposure Smokeless t obacco non-user [facility] Start: 05-16-2024 End: 10-09-2024 Alcoholic beverage intake Lifetime non-drinker (finding) [facility] Start: 07-31-2023 End: 04-07-2024 History of Social function [facility] Start: 07-31-2023 End: 04-07-2024 Tobacco use panel [facility] Start: 03-28-2024 [facility] Tyrel reece Start: 1995 Sex assigned at Female [facility] Start: 01-23-2023 Gender identity Identifies as female gender (finding) [facility] Clinical Notes 05-16-2024 to 10-23-2024 BHAVESH Javier - 10/23/2024 10:50 AM ESTSusan Spitler, MATA - 10/09/2024 10:40 AM ESTSusan Spitler, COAL HANDLER - 09/25/2024 9:00 AM BHAVESH Mares - [...] Morbid obesity with BMI of 40.0-44.9, adult ([facility] Negative test On Depo-Provera for contraception HISTORY PAST MEDICAL HISTORY SOCIAL HISTORY Past Medical History: Diagnosis Date Depression screening Encounter for gynecological examination (general) (routine) without abnormal findings Family planning Insulin resistance Morbid obesity with BMI of 40.0-44.9, adult ([facility]) Negative test On Depo-Provera for contraception Social [...] of: BHAVESH Javier documented in this encounter [facility] 10-09-2024 History of Presen t illness [...] Morbid obesity with BMI of 40.0-44.9, adult ([facility]) Negative test On Depo-Provera for contraception HISTORY PAST MEDICAL HISTORY SOCIAL HISTORY Past Medical History: Diagnosis Date Depression screening Encounter for gynecological examination (general) (routine) without abnormal findings Family planning Insulin resistance Morbid obesity with BMI of 40.0-44.9, adult ([facility]) Negative test On Depo-Provera for contraception Social [...] nursing note reviewed. Exam conducted with a rating officer present. Vitals: Estimated body mass index is [...] Carrie Payan DO documented in this encounter [facility] 09-25-2024 History of Presen t [...] Morbid obesity with BMI of 40.0-44.9, adult ([facility]) Negative test On Depo-Provera for contraception HISTORY PAST MEDICAL HISTORY SOCIAL HISTORY Past Medical History: Diagnosis Date Depression screening Encounter for gynecological examination (general) (routine) without abnormal findings Family planning Insulin resistance Morbid obesity with BMI of 40.0-44.9, adult ([facility]) Negative test On Depo-Provera for contraception Social [...] nursing note reviewed. Exam conducted with a rating officer present. Vitals: Estimated body mass index is [...] Carrie Payan DO documented in this encounter [facility] 2024 History of Presen t [...] Morbid obesity with BMI of 40.0-44.9, adult ([facility]) Negative test On Depo-Provera for contraception HISTORY PAST MEDICAL HISTORY SOCIAL HISTORY Past Medical History: Diagnosis Date Depression screening Encounter for gynecological examination (general) (routine) without abnormal findings Family planning Insulin resistance Morbid obesity with BMI of 40.0-44.9, adult ([facility]) Negative test On Depo-Provera for contraception Social [...] nursing note reviewed. Exam conducted with a rating officer present. Vitals: Estimated body mass index is [...] of: BHAVESH Javier documented in this encounter [facility] 08-14-2024 History of Presen t [...] Morbid obesity with BMI of 40.0-44.9, adult ([facility]) Negative test On Depo-Provera for contraception HISTORY PAST MEDICAL HISTORY SOCIAL HISTORY Past Medical History: Diagnosis Date Depression screening Encounter for gynecological examination (general) (routine) without abnormal findings Family planning Insulin resistance Morbid obesity with BMI of 40.0-44.9, adult ([facility]) Negative test On Depo-Provera for contraception Social [...] nursing note reviewed. Exam conducted with a rating officer present. Vitals: Estimated body mass index is [...] Carrie Payan DO documented in this encounter [facility] 07-17-2024 History of Presen t [...] Morbid obesity with BMI of 40.0-44.9, adult ([facility]) Negative test On Depo-Provera for contraception HISTORY PAST MEDICAL HISTORY SOCIAL HISTORY Past Medical History: Diagnosis Date Depression screening Encounter for gynecological examination (general) (routine) without abnormal findings Family planning Insulin resistance Morbid obesity with BMI of 40.0-44.9, adult ([facility]) Negative test On Depo-Provera for contraception Social [...] nursing note reviewed. Exam conducted with a rating officer present. Vitals: Estimated body mass index is [...] Carrie Payan DO documented in this encounter [facility] 06-17-2024 History of Presen t [...] Morbid obesity with BMI of 40.0-44.9, adult ([facility]) Negative test On Depo-Provera for contraception HISTORY PAST MEDICAL HISTORY SOCIAL HISTORY Past Medical History: Diagnosis Date Depression screening Encounter for gynecological examination (general) (routine) without abnormal findings Family planning Insulin resistance Morbid obesity with BMI of 40.0-44.9, adult ([facility]) Negative test On Depo-Provera for contraception Social [...] nursing note reviewed. Exam conducted with a rating officer present. Vitals: Estimated body mass index is [...] Karla Burns PA-C documented in this encounter [facility] 05-16-2024 History of Presen t [...] 1 1 # Outcome Date GA Lbr Steafno/2nd Weight Sex Type Anes PTL Lv 3 [...] Morbid obesity with BMI of 40.0-44.9, adult ([facility]) Negative test On Depo-Provera for contraception Family [...] content) DATE CREATED AUTHOR 04/05/2022 [facility] DATE CREATED AUTHOR AUTHOR'S ORGANIZ ATION 04/08/2022 [facility] DATE CREATED AUTHOR AUTHOR'S ORGANIZ ATION 10/25/2024 [facility] Care Teams (unrecognized sec tion and content) Instrumental Musician Relationship Specialty Start Date End Date Karla Ortega MD [address] [place] [phone] PCP - General Family Medicine 01/24/23 Instrumental Musician Relationship Specialty Start Date End Date Karla Ortega MD [address] [place] [phone] PCP - General Family Medicine 01/24/23 Instrumental Musician Relationship Specialty Start Date End Date Karla Ortega MD [address] [place] [address] PCP - General Family Medicine 01/24/23 Instrumental Musician Relationship Specialty Start Date End Date Karla Ortega MD [address] [place] [address] PCP - General Family Medicine 01/24/23 Instrumental Musician Relationship Specialty Start Date End Date Karla Ortega MD [address] [place] [address] PCP - General Family Medicine 01/24/23 Instrumental Musician Relationship Specialty Start Date End Date Karla Ortega MD [address] [place] [address] PCP - General Family Medicine 01/24/23 Instrumental Musician Relationship Specialty Start Date End Date Karla Ortega MD [address] [place], [phone] PCP - General Family Medicine 01/24/23 Instrumental Musician Relationship Specialty Start Date End Date Karla Ortega MD [address] [place], [id number] PCP - General Family Medicine 01/24/23 Instrumental Musician Relationship Specialty Start Date End Date Karla Ortega MD [address] [place] [address] PCP - General Family Medicine 01/24/23 Instrumental Musician Relationship Specialty Start Date End Date Karla Ortega MD [address] [place] [address] PCP - General Family Medicine 01/24/23 Instrumental Musician Relationship Specialty Start Date End Date Karla Ortega MD [address] [place] [phone] PCP - General Family Medicine 01/24/23 Reason [...] BE BASED ON THE PRIMARY CLINICAL RECORDS. [employer] [facility] provides no warranty or guarantee [id number] the accuracy [phone] completeness of information in this [id number]
[2024-11-06 11:30] VITALS: BP 119/70; PULSE 103
== END 2024-11-06 11:58 | disposition home or self-care (01) ==
LOC: US 01:54 → FBC 11:00
PROVIDERS: Visit Provider Obstetrics & Gynecology
DX: O36.63X0 Maternal care for excessive fetal growth, third trimester, not applicable or unspecified (principal); Z3A.36 36 weeks gestation of pregnancy
CPT/HCPCS: 76816; 76818

== ENCOUNTER 2024-11-10 18:56 | Outpatient (OUT) | payer BC, SELFPAY ==
--- OUTSIDE RECORDS SUMMARY | 2024-11-10 19:01 | XMS_ITS | CCD ---
Author Organization [facility] Care Team Providers Care Ink Jet Operator Name Role Phone DR CARRIE PAYAN Primary Care Unavailable ANGÉLICA NARAYANAN Attending Unavailable ANGÉLICA NARAYANAN Consulting Unavailable ANGÉLICA NARAYANAN Admitting Unavailable MARQUIS HENSON Consulting Unavailable DR CARRIE PAYAN Consulting Unavailable ORA, DR BUTLER Primary Care Unavailable DR CARRIE PAYAN Admitting Unavailable ORA, DR BUTLER Attending Unavailable Karla Ortega MD Primary Care Provider CARRIE PAYAN Attending Unavailable ORA, CARRIE Attending Unavailable KARLA BURNS Attending Unavailable KARLA BURNS Attending Unavailable KARLA BURNS Attending Unavailable CARRIE PAYAN Attending Unavailable ORA, CARRIE Attending Unavailable ORA, CARRIE Attending Unavailable KARLA BURNS Attending Unavailable Medications Current Medications Medication Drug Class(es) Dates Sig (Normalized) Sig (Original) aspirin 81 mg delayed release oral tablet (14 sources) Platelet Aggregation Inhibitor, Nonsteroidal Anti-inflammatory Drug [...] Drug Class(es) Dates Sig (Normalized) Sig (Original) azithromycin 250 mg oral tablet (11 sources) Macrolide Antimicrobial Start: 10-09-2024 End: 11-06-2024 azithromycin (Zithromax Z-Fam) 250 MG tablet Indications: 29 weeks gestation of , Third trimester As directed 6 tablet 10/09/2024 11/06/2024 Discontinued nitrofurantoin, macrocrystals 25 mg / nitrofurantoin, monohydrate 75 mg oral capsule (6 sources) Nitrofuran Antibacterial Start: 09-19-2024 End: 09-26-2024 take 1 capsule by mouth in the morning nitrofurantoin, macrocrystal-monoh ydrate, (Macrobid) 100 MG capsule Indications: UTI symptoms [...] 07-17-2024 Episodic Other and delivery including normal (18 sources) Second trimester ; Translations: [Encounter for [...] [31 weeks gestation of ] 10-23-2024 Episodic Residual codes; unclassified (2 sources) Gestation period, 33 weeks; Translations: [33 weeks gestation of ] 11-06-2024 Episodic Sprains and strains (1 source) Sprain of unspecified ligament of left ankle, initial encounter; Translations: [SPRAIN UNS LIGAMENT LT ANKLE INIT] Onset: 03-13-2022 Episodic Results Test Name Value Interpretation Reference Range Facility Urinalysis macro (dipstick) panel (U)on 11-06-2024 Bilirubin, UA Negative Negative - 4(70) +++ mg/dL [facility] Blood, UA Negative Negative - 50 Roberto/mcL [facility] Clarity, UA Clear [facility] Healthca re Color, UA Yellow [facility] Healthcar e Glucose, UA Negative Negative - 1999(110) ++++ mg/dL [facility] Interpretation and review of laboratory results Abnormal [facility] Ketones, UA Negative Negative - 160(16) ++++ mg/dL [facility] Leukocytes, UA Trace Negative - 500+++ Christian/mcL [facility] Nitrite, UA Negative Negative - Positive [facility] pH, UA 6.5 5 - 9 [facility] Healthcar e Protein, UA Negative Negative - 1999(20) ++++ mg/dL [facility] Spec Grav, UA 1.025 1 - 1.03 [facility] care Urobilinogen, UA 2.0 0.2 - 12 mg/dL [facility] Health[facility] e US OB BPP W NON-STRESS on 10-31-2024 [place] [address] Ultrasound Report Signed Patient: KAREEN FORMAN MR#: [id number] : 1995 Acct:[id number] Age/Sex: 29 / F ADM Date: 10/30/24 Loc: US Attending Dr: Carrie Payan D.O. Ordering Physician: Carrie Payan D.O. Date of Service: 10/30/24 Procedure(s): US OB BPP w non-stress Accession Number(s): [id number] cc: KARLA ORTEGA; Carrie Payan D.O. The [place] [address] Patient Name: KAREEN FORMAN MRN: [id number]:[id number] date: 1995 Sex: F Assigned Patient Location: [facility] Current Patient Location: Accession/Order Number: [id number] Exam Date: 10/31/2024 10:24 Report Date: 10/31/2024 10:25 At the request of: CARRIE PAYAN DO Procedure: US OB BPP w non-stress BIOPHYSICAL PROFILE: CLINICAL INFORMATION: EXCESSIVE GROWTH AFFECTING O36.60X0 COMPARISON: 10/23/2024 There is a single live intrauterine gestation in cephalic presentation. Reported age is 32 weeks 6 days. The heart rate [id number] ( beats per minute. FINDINGS: TONE: 1 [...] Bita Mcdonough M.D.10/31/2024 10:25 AM Dictation Location: [place] [address] Electronically authenticated by: [id number] Y Date: 10/31/2024 10:25 Dictated By: Bita Mcdonough M.D. Signed By: 10/31/24 1027 DD/ 1025 TD/TT: Analyst: [facility] Radiology, Radiologist, MD - 10/31/2024 [place] [address] Ultrasound Report Signed Patient: KAREEN FORMAN MR#: [id number] : 1995 Acct:[id number] Age/Sex: 29 / F ADM Date: 10/30/24 Loc: US Attending Dr: Carrie Payan D.O. Ordering Physician: Carrie Payan D.O. Date of Service: 10/30/24 Procedure(s): US OB BPP w non-stress Accession Number(s): [id number] cc: KARLA ORTEGA; Carrie Payan D.O. The [place] [id number] Patient Name: KAREEN FORMAN MRN: [facility]:[id number] date: 1995 Sex: F Assigned Patient Location: [facility] Current Patient Location: Accession/Order Number: [id number] Exam Date: 10/31/2024 10:24 Report Date: 10/31/2024 10:25 At the request of: CARRIE PAYAN DO Procedure: US OB BPP w non-stress BIOPHYSICAL PROFILE: CLINICAL INFORMATION: EXCESSIVE GROWTH AFFECTING O36.60X0 COMPARISON: 10/23/2024 There is a single live intrauterine gestation in cephalic presentation. Reported age is 32 weeks 6 days. The heart rate cjqbyjjv334 ( beats per minute. FINDINGS: TONE: 1 [...] Bita Mcdonough M.D.10/31/2024 10:25 AM Dictation Location: [place] [address] Electronically authenticated by: [id number] Y Date: 10/31/2024 10:25 Dictated By: Bita Mcdonough M.D. Signed By: 10/31/24 1027 DD/ 1025 TD/TT: Analyst: [facility] Radiology Study observation (narrative) [facility] US OB BPP W NON-STRESS Ordered By: Radiologist [facility] OB BPP W NON-STRESS on 10-23-2024 [place] [address] Ultrasound Report Signed Patient: KAREEN FORMAN MR#: [id number] : 1995 Acct:[id number] Age/Sex: 29 / F ADM Date: 10/23/24 Loc: US Attending Dr: Carrie Payan D.O. Ordering Physician: Carrie Payan D.O. Date of Service: 10/23/24 Procedure(s): US OB BPP w non-stress Accession Number(s): [id number] cc: KARLA ORTEGA; Carrie Payan D.O. The [address] [address] Patient Name: KAREEN FORMAN MRN: [id number]:[id number] date: 1995 Sex: F Assigned Patient Location: [facility] Current Patient Location: US Accession/Order Number: [id number] Exam Date: 10/23/2024 13:18 Report Date: 10/23/2024 22:17 At the request of: CARRIE PAYAN DO Procedure: US OB BPP w non-stress BPP. Reason for exam: Excessive growth. COMPARISON: BPP 10/16/2024. TECHNIQUE: Transabdominal imaging of the gravid uterus was obtained. FINDINGS: Chief Engineer reports the BPP is 8 out of 8. JENS measures 13.1 cm. heart rate 161 bpm. US/US OB BPP w non-stress Impression: BPP 8 out of 8. Correlation with NST is recommended. Impression dictated by: Claudio Schuster Jr., D.O.10/23/2024 10:17 PM Dictation Location: [place] [address] Electronically authenticated by: [id number] Y Date: 10/23/2024 22:17 Dictated By: Claudio Schuster M.D. Signed By: 10/23/242218 DD/ 16 TD/TT: Analyst: [facility] Radiology, Radiologist, MD - 10/23/2024 [place] [address] Ultrasound Report Signed Patient: KAREEN FORMAN MR#: [id number] : 1995 Acct:[id number] Age/Sex: 29 / F ADM Date: 10/23/24 Loc: US Attending Dr: Carrie Payan D.O. Ordering Physician: Carrie Payan D.O. Date of Service: 10/23/24 Procedure(s): US OB BPP w non-stress Accession Number(s): [id number] cc: KARLA ORTEGA; Carrie Payan D.O. The [address] [address] Patient Name: KAREEN FORMAN MRN: [facility]:[id number] date: 1995 Sex: F Assigned Patient Location: [facility] Current Patient Location: US Accession/Order Number: [id number] Exam Date: 10/23/2024 13:18 Report Date: 10/23/2024 22:17 At the request of: CARRIE PAYAN DO Procedure: US OB BPP w non-stress BPP. Reason for exam: Excessive growth. COMPARISON: BPP 10/16/2024. TECHNIQUE: Transabdominal imaging of the gravid uterus was obtained. FINDINGS: Chief Engineer reports the BPP is 8 out of 8. JENS measures 13.1 cm. heart rate 161 bpm. US/US OB BPP w non-stress Impression: BPP 8 out of 8. Correlation with NST is recommended. Impression dictated by: Claudio Schuster Jr., D.O.10/23/2024 10:17 PM Dictation Location: [facility]ITAL[facility] Electronically authenticated by: [id number] Y Date: 10/23/2024 22:17 Dictated By: Claudio Schuster M.D. Signed By: 10/23/242218 DD/ 16 TD/TT: Analyst: [facility] Radiology Study observation (narrative) [facility] US OB BPP W NON-STRESS Ordered By: Radiologist Radiology on 10-23-2024 [facility] Work Phone: Urinalysis macro (dipstick) panel (U)on 10-23-2024 Bilirubin, UA Negative Negative - 4(70) +++ mg/dL [facility] Blood, UA Negative Negative - 50 Roberto/mcL [facility] Clarity, UA [facility] re Color, UA Yellow [facility] [employer] e Glucose, UA Negative Negative - 1999(110) ++++ mg/dL [facility] Interpretation and review of laboratory results Abnormal [facility] Ketones, UA Negative Negative - 160(16) ++++ mg/dL [facility] Leukocytes, UA Trace Negative - 500+++ Christian/mcL [facility] Nitrite, UA Negative Negative - Positive [facility] pH, UA 6.5 5 - 9 [facility] [employer] e Protein, UA Negative Negative - 1999(20) ++++ mg/dL [facility] Spec Grav, UA 1.025 1 - 1.03 [facility] Urobilinogen, UA 1.0 0.2 - 12 mg/dL [facility] US OB BPP W NON-STRESS on 10-16-2024 The [place] [id number] Ultrasound Report Signed Patient: KAREEN FORMAN MR#: [id number] : 1995 Acct:[id number] Age/Sex: 29 / F ADM Date: 10/16/24 Loc: US Attending Dr: Carrie Payan D.O. Ordering Physician: Carrie Payan D.O. Date of Service: 10/16/24 Procedure(s): US OB BPP w non-stress Accession Number(s): [id number] cc: KARLA ORTEGA; Carrie Payan D.O. The [address] [address] Patient Name: KAREEN FORMAN MRN: [facility]:[id number] date: 1995 Sex: F Assigned Patient Location: US Current Patient Location: Accession/Order Number: [id number] Exam Date: 10/16/2024 13:57 Report Date: 10/16/2024 [...] Signed By: 10/16/24 1544 DD/ 154 TD/TT: Analyst: [facility] Radiology, Radiologist, MD - 10/16/2024 [place] [address] Ultrasound Report Signed Patient: KAREEN FORMAN MR#: [id number] : 1995 Acct:[id number] Age/Sex: 29 / F ADM Date: 10/16/24 Loc: US Attending Dr: Carrie Payan D.O. Ordering Physician: Carrie Payan D.O. Date of Service: 10/16/24 Procedure(s): US OB BPP w non-stress Accession Number(s): [id number] cc: KARLA ORTEGA; Carrie Payan D.O. [place] [address] Patient Name: KAREEN FORMAN MRN: [id number] date: 1995 Sex: F Assigned Patient Location: US Current Patient Location: Accession/Order Number: [id number] Exam Date: 10/16/2024 13:57 Report Date: 10/16/2024 [...] Signed By: 10/16/24 1544 DD/ 154 TD/TT: Analyst: [facility] Radiology Study observation (narrative) [facility] US OB BPP W NON-STRESS Ordered By: Radiologist Radiology on 10-16-2024 [facility] [employer] Work Phone: US OB FOLLOW UP [...] II, MD, PHD at 10-Oct-2024 07:43:20 AM [facility] Normal Not Available Comment on above: Order Comment: US OB SCAN FOR GROWTH Estimated Date of Delivery: 12/19/24 Gestational Age as of 09/25/2024: 27w6d Urinalysis macro (dipstick) panel (U)on 10-09-2024 Bilirubin, UA Negative Negative - 4(70) +++ mg/dL [facility] Blood, UA Negative Negative - 50 Roberto/mcL [facility] Clarity, UA Clear [facility] re Color, UA Yellow [facility] Glucose, UA Positive Negative - 2000(110) ++++ mg/dL [facility] Comment on above: 100 Interpretation and review of laboratory results Abnormal [facility] Ketones, UA Positive Negative - 160(16) ++++ mg/dL [facility] Comment on above: 15 Leukocytes, UA Negative Negative - 500+++ Christian/mcL [facility] Nitrite, UA Negative Negative - Positive [facility] pH, UA 7 5 - 9 [facility] Healthcar e Protein, UA Trace Negative - 1999(20) ++++ mg/dL [facility] Spec Grav, UA 1.025 1 - 1.03 [facility] Urobilinogen, UA 0.2 0.2 - 12 mg/dL [facility] GLUCOSE TOLERANCE 3 HOURon 0 10-07-2024 GLUCOSE TOLERANCE 3 HOUR mg/dL [facility] Comment on above: GLU FAST 83 (<95) Co l: 10/07/24 0909 GLU 1HR 163 (<180) Col: 10/07/24 1012 GLU 2HR 146 (<155) Col: 10/07/24 1112 GLU 3HR 83 (<140) Col: 10/07/24 1212 [facility] Healthcar e Urinalysis macro (dipstick) panel (U)on 09-25-2024 Bilirubin, UA Negative Negative - 4(70) +++ mg/dL [facility] Blood, UA Negative Negative - 50 Roberto/mcL [facility] Clarity, UA Clear [facility] Healthca re Color, UA Yellow [facility] Health[facility] e Glucose, UA Negative Negative - 1999(110) ++++ mg/dL [facility] Interpretation and review of laboratory results Abnormal [facility] Ketones, UA Negative Negative - 160(16) ++++ mg/dL [facility] Leukocytes, UA Positive Negative - 500+++ Christian/mcL [facility] Comment on above: small Nitrite, UA Negative Negative - Positive [facility] pH, UA 8.5 5 - 9 [facility] Healthcar e Protein, UA Negative Negative - 1999(20) ++++ mg/dL [facility] Spec Grav, UA 1.02 1 - 1.03 [facility] Urobilinogen, UA 1.0 0.2 - 12 mg/dL [facility] Urinalysis macro (dipstick) panel (U)on 2024 Bilirubin, UA Negative Negative - 4(70) +++ mg/dL [facility] Blood, UA Negative Negative - 50 Roberto/mcL [facility] Clarity, UA Clear [facility] Color, UA Yellow [facility] Health[facility] e Glucose, UA Negative Negative - 1999(110) ++++ mg/dL [facility] Interpretation and review of laboratory results Abnormal [facility] Ketones, UA Negative Negative - 160(16) ++++ mg/dL [facility] Leukocytes, UA Moderate Negative - 500+++ Christian/mcL [facility] Nitrite, UA Positive Negative - Positive [facility] pH, UA 7 5 - 9 [facility] Healthcar e Protein, UA Positive Negative - 1999(20) ++++ mg/dL [facility] Comment on above: 100 Spec Grav, UA 1.02 1 - 1.03 [facility] Urobilinogen, UA 1.0 0.2 - 12 mg/dL [facility] Urinalysis macro (dipstick) panel (U)on 08-14-2024 Bilirubin, UA Negative Negative - 4(70) +++ mg/dL [facility] Blood, UA Negative Negative - 50 Roberto/mcL [facility] Clarity, UA [facility] re Color, UA Yellow [facility] e Glucose, UA Negative Negative - 1999(110) ++++ mg/dL [facility] Interpretation and review of laboratory results Abnormal [facility] Ketones, UA Negative Negative - 160(16) ++++ mg/dL [facility] Leukocytes, UA Negative Negative - 500+++ Christian/mcL [facility] Nitrite, UA Negative Negative - Positive [facility] pH, UA 5.5 5 - 9 [facility] Healthcar e Protein, UA Negative Negative - 1999(20) ++++ mg/dL [facility] Spec Grav, UA 1.02 1 - 1.03 [facility] Urobilinogen, UA 1.0 0.2 - 12 mg/dL [facility] Health[facility] ALL CBC WITH AUTO DIFFon BASOPHILS ABSOLUTE AUTO 0 [facility] Basophils/100 WBC (Bld) 0.3 % 0.2 - 2.0 % [facility] Eosinophils/100 WBC (Bld) 0.9 % 0.9 - 7.0 % [facility] Erythrocyte distribution width (RBC) [Ratio] 14.8 % 11.0 - 15.0 % [facility] Hematocrit (Bld) [Volume fraction] 36.3 % 36.0 - 48.0 % [facility] Healthcar e Hemoglobin (Bld) [Mass/Vol] 11.9 g/dL Low 12.0 - 16.0 g/dL [facility] IMMATURE GRANULOCYTES ABS AUTO 0.04 High [facility] Immature granulocytes/100 WBC (Bld) 0.4 % 0.0 - 0.5 % [facility] Interpretation and review of laboratory results Abnormal [facility] LYMPHOCYTES ABSOLUTE AUTO 1.6 [facility] Lymphocytes/100 WBC (Bld) 15 % Low 20.5 - 60.0 % [facility] MCH (RBC) [Entitic mass] 27.2 pg 26.7 - 34.0 pg [facility] MCHC (RBC) [Mass/Vol] 32.8 g/dL 29.9 - 35.2 g/dL [facility] MCV (RBC) [Entitic vol] 83.1 fL 81.0 - 99.0 fL [facility] MONOCYTES ABSOLUTE AUTO 0.8 [facility] Monocytes/100 WBC (Bld) 7.4 % 1.7 - 12.0 % [facility] NEUTROPHILS ABSOLUTE AUTO 7.8 High [facility] Neutrophils/100 WBC (Bld) 76 % High 43.0 - 75.0 % [facility] Platelet mean volume (Bld) [Entitic vol] 9.2 fL Low 9.5 - 13.5 fL [facility] Healthc are TBH EO # 0.1 [facility] Healthcar e TBH PLT 322 [facility] Healthcar e TB RBC 4.37 [facility] Healthcar e TB WBC 10.3 [facility] Healthcar e [facility] Health[facility] e GLUCOSE 1 HOURon 07-30-2024 Glucose [Mass/Vol] 173 mg/dL High NINF - 13 0 mg/dL [facility] Interpretation and review of laboratory results Abnormal [facility] Healthcar e RECURRENT VAGINITIS (HTRX)on 07-18-2024 ATOPOBIUM VAGINAE 21.066 Abnormal [facility] ATOPOBIUM VAGINAE Detected [facility] BVAB 2,3 (BACTERIAL VAGINOSIS ASSOCIATED BACTERIA 2, 3); MOBILUNCUS SPP 20.228 Abnormal [facility] BVAB 2,3 (BACTERIAL VAGINOSIS ASSOCIATED BACTERIA 2, 3); MOBILUNCUS SPP Detected Abnormal [facility] BLANCA ALBICANS, PARAPSILOSIS, TROPICALIS 0 [facility] BLANCA ALBICANS, PARAPSILOSIS, TROPICALIS Not detected [facility] BLANCA GLABRATA 0 [facility] BLANCA GLABRATA Not detected [facility] BLANCA KRUSEI 0 [facility] Healt hcare BLANCA KRUSEI Not detected [facility] CHLAMYDIA TRACHOMATIS 0 [facility] Healthcare CHLAMYDIA TRACHOMATIS Not detected [facility] Healthcare ERMB, C; MEFA 26.225 Abnormal [facility] Health care ERMB, C; MEFA Detected Abnormal [facility] care GARDNERELLA VAGINALIS 21.744 Abnormal [facility] Healthcare GARDNERELLA VAGINALIS Detected Abnormal [facility] Interpretation and review of laboratory results Abnormal [facility] MEGASPHAERA (TYPES 1, 2) 0 [facility] MEGASPHAERA (TYPES 1, 2) Not detected [facility] MYCOPLASMA GENITALIUM 0 [facility] MYCOPLASMA GENITALIUM Not detected [facility] NEISSERIA GONORRHOEAE 0 [facility] NEISSERIA GONORRHOEAE Not detected [facility] TET B, TET M 24.757 Abnormal [facility] Healthc are TET B, TET M Detected Abnormal [facility] Healthc are TRICHOMONAS VAGINALIS 0 [facility] TRICHOMONAS VAGINALIS Not detected [facility] Urinalysis macro (dipstick) panel (U)on 07-17-2024 Bilirubin, UA Negative Negative - 4(70) +++ mg/dL [facility] Blood, UA Negative Negative - 50 Roberto/mcL [facility] Clarity, UA Clear [facility] Healthca re Color, UA Yellow [facility] Health[facility] e Glucose, UA Negative Negative - 1999(110) ++++ mg/dL [facility] Interpretation and review of laboratory results Abnormal [facility] Ketones, UA Positive Negative - 160(16) ++++ mg/dL [facility] Leukocytes, UA Trace Negative - 500+++ Christian/mcL [facility] Nitrite, UA Negative Negative - Positive [facility] pH, UA 5.5 5 - 9 [facility] Healthcar e Protein, UA Trace Negative - 1999(20) ++++ mg/dL [facility] Spec Grav, UA 1.03 1 - 1.03 [facility] care Urobilinogen, UA 0.2 0.2 - 12 mg/dL [facility] Urinalysis macro (dipstick) panel (U)on 06-17-2024 Bilirubin, UA Negative Negative - 4(70) +++ mg/dL [facility] Blood, UA Negative Negative - 50 Roberto/mcL [facility] Clarity, UA Clear [facility] Color, UA Yellow [facility] e Glucose, UA Negative Negative - 1999(110) ++++ mg/dL [facility] Interpretation and review of laboratory results Abnormal [facility] Ketones, UA Negative Negative - 160(16) ++++ mg/dL [facility] Leukocytes, UA Negative Negative - 500+++ Christian/mcL [facility] Nitrite, UA Negative Negative - Positive [facility] pH, UA 6 5 - 9 [facility] e Protein, UA Positive Negative - 1999(20) ++++ mg/dL [facility] Comment on above: 100 Spec Grav, UA 1.03 1 - 1.03 [facility] Urobilinogen, UA 0.2 0.2 - 12 mg/dL [facility] ALL CBC WITH AUTO DIFFon BASOPHILS ABSOLUTE AUTO 0.0 [facility] Basophils/100 WBC (Bld) 0.4 % 0.2 - 2.0 % [facility] Eosinophils/100 WBC (Bld) 1.1 % 0.9 - 7.0 % [facility] Erythrocyte distribution width (RBC) [Ratio] 14.2 % 11.0 - 15.0 % [facility] Hematocrit (Bld) [Volume fraction] 39.3 % 36.0 - 48.0 % [facility] e Hemoglobin (Bld) [Mass/Vol] 12.8 g/dL 12.0 - 16.0 g/dL [facility] IMMATURE GRANULOCYTES ABS AUTO 0.02 [facility] Immature granulocytes/100 WBC (Bld) 0.3 % 0.0 - 0.5 % [facility] Interpretation and review of laboratory results Abnormal [facility] LYMPHOCYTES ABSOLUTE AUTO 1.6 [facility] Lymphocytes/100 WBC (Bld) 21.5 % 20.5 - 60.0 % [facility] MCH (RBC) [Entitic mass] 26.8 pg 26.7 - 34.0 pg [facility] MCHC (RBC) [Mass/Vol] 32.6 g/dL 29.9 - 35.2 g/dL [facility] MCV (RBC) [Entitic vol] 82.2 fL 81.0 - 99.0 fL [facility] MONOCYTES ABSOLUTE AUTO 0.4 [facility] Monocytes/100 WBC (Bld) 5.1 % 1.7 - 12.0 % [facility] NEUTROPHILS ABSOLUTE AUTO 5.3 [facility] Neutrophils/100 WBC (Bld) 71.6 % 43.0 [...] Health[facility] e Coding Summary.on 04-07-2022 Coding Summary. CD:[id number] G h0bWw+PGhlYWQ+LO5HSVS qC08hjMPaaI7ON7sVPD0T GLLSBOUGSF6QTP0ukUA7Q VolB6MpffLv MtvwxGYcQV45KZo2INA8e YhbIBxscE1siMKwM5x8Gi QnYO24tQ13KPrnLNJuUyN 3LjZpbjsgbWFy G7edSaAutTYaIbp+PHRhY mxlIHdpZHRoPScxMDAlJy RovCgkYA5uVo8wIZHuVTK vbGxhcHNlOiBj r3ipCEXeVFykFE4vaOggM 9DsyFC6HIThu8w3Rl92jP I+UVMlYSF0zCjbULmmc45 2MvFmw7bcVTJ3 kUWbSSfdCIB3N11uc0O2L QDyYDTrOON8dTD5xT3hwE mrrcxpN4ZnjDFpVcE4RGP 0zEGukZ9wgZrx lnxnaE4bXym+M40APB3KO VECHH7MJga6S3VsIovrgR I+ZC38IOMtYB85wWAzrZU ph1gojJj1FaTp NBYaDHF7dBnsYPncl5SdF HWoQ54huSIxn9V3HCYwmE jjrMYmObAlsNL8jU5sYCa vxlblz9gsnoms Ycwnq2nibw60iF54Y84lT AnfLYOfWNA4BETmKAAvwF dloj9vjE5jNw0+UAchi4p dc7wdvLw9QbCz AMMzusPkiOduNGV9f2HvR o88Y2ZpuOpgt5EmFnk0ks 01yWPay8I1lFI0OTpdCPT gnE9eOXwpFqD4 DJOdSxZzxM48wITwCNrxT d8xaIitqKarKZ7nJMSrlt tmAKSjxK1dRPOeiPZnzMx kZI4xFEActznx j797AoMgXVB4MJEgrBUoB 1MrsY1sMxMpJWCuYJKnG7 PrkMTfNKojJ421ESjrPoP 8GSCmybBuE4Xs UWNiqIegAaK2k1X8Hz7Zn 0XssktbURH5IDhrROL9Ie V0KcHxPmQ8A2RcRhh0RGR cuXloVM5cN1Ts BRAdzjvvjnkpaEA7OSTgP JYjpD34tNGtRJazHd1nt7 I3f019QDJzYFCjkQ00Hw2 udDogMTBwdCBU fQ1gnoeoi1pwbffoDvKdA QGgJVr1GJz5BMGlhWbuSd FuKHJ6HfJ3AOW7pGEemK9 urZfosgwddN0v Oyc+I03nwN3aOKF0EPT0a qsxEDWiqvOmMU15DB78F1 RyPjwvdGFibGU+PGRpdiB udXsuGS7iLqBt o8cme9UsYGftE8JxFFQnN ZzxRkp0HNQsOWR3uZP3dP 2oZXYbYQmzt0E6nYR4X8X ctkOfbg4eu4de HDQwSEprN15hwJVim1O8Y AIeeBN0LIKndBtqSlLpuK 93Oyc+CPCisWgtj3RbRgx wt3lax5uqwJc0 GnQqPTJyqsFpyCoiLLS9x 1IwLg34Y41mZKhaISDyIB ImHZMjWYYivFvgqa2mrD8 wIi8+PGNvbCB3 kSJ9nH2tIINwDfN2ISqlN 559KtEiuDJtMmzms1axy8 nigPg2DnZuGGDojbHjkSn aGUB7j4HhXn45 K42vFWlfHCEpULYzJCNxM MWchRhusu7mqW4qZe6+PC 0nc7smjm91aR03tOD+PHR pSZK2vYieBTcb JHSvkN3tUTlkCrY8MSYaF sNcgV66iCDuGPvnHe2lqF hosYodOD0dMGDtprssv88 5AvNmg5oaYQGu aWTnQMmvWWH0Q57ed1W0Q FAdVHWpKGB8xVG6aM0ldJ lnbjogbGVmdDsgdmVydGl yQWnkVUwxK168 IHRvcDsnPlBhdGllbnQgT gFpIQf3I5VjCiq5JMHwwJ soHK7viSDcLBqqQw7jsDa pfHuqRZ3oXHYk fspis588JaVtd5iqLERzv KPmDAoiVZV3K68ts6S1IE AuTPLwXQG3yEY6iF3wrKr nbjogbGVmdDsg lrYgxCyiPPboYSacI070E HRvcDsnPkJpcnRoIERhdG C6GA29MV90nDDar6Y4eMS 1O0CcLDHitqmz kyqllEX6QEPoHGLpjS17D x5wyVnhJu0cDPDmVXK3QK FllLFfB1OgoG3oNeOqXLL nUJYjR0VjmZIc QWaoS037HQoxZhG3SUMgk iIuQ6BuLAShhHiuBjT4l2 N3Ce8BQ8Z3GV35MW19kFG rj4A7uUX0T2Rn LUZixlefvrlmzGM9ZSRiM AYfqQ45Nw9joPlnBm1dAC PlOKZ0QSNklHBzV7FboX2 yOiAjMDAwMDAw L8XmeQHeAHjrM103EPtaX dE5JKEqeeEvA5OmJOAbkW rbBhZ1n9L9Dc8AXFs6LW8 0BD44oCGmu2O4 lOQ9Q3OsKMWjurlbiybcw WA9YRRsFSCrrC55Mo0ufG bnNa9iQZBaZJF9QPVeeKY uI5KxkC8nVsUp DGQrUNDuL7MrkEPtYYpqK 113ARvwChL0FFRsygVzT4 LdDRFndHzaUuI5y0Y6Ju8 MIISgSH63OTB6 zHM5NA80PT89C2CpUeegc GFibGU+PHRhYmxlIHdpZH RoPScxMDAlJyBzdHlsZT0 yHl6aOTXgXJIb uJbroAVcCvNie2peCPTyE EtgRN0zjXxsG7SkhHC3AB Lbd2q6Wb02L50rT3LzlSU +TLXcnPN2nBE5 yO4xGdHlCsF9KPgjJ277X kTbvTEzTtiss1ega3aziV o3WhN3SVXyjsYeuNcqOXK 1m9DiGo19K17i IHdpZHRoPSIxNSUiIHZhb Nywic2grX9hSo1+PGNvbC B2nKE7kO1hYbWpWpK9TFq jO065DdUogIVf Uyxrr8fqy0blhKj1QhXeY YUuiaQuqVotEAB2a7ElAg 69P8GziGmsg4QpSis9di6 3oGMel1M6tSF1 A3XiJUHbrczemNLimLdzQ V3cEEEwizxiWBAylJ9uFZ WyA5y6XwIvTsG4XYtuA2A qbwK4QKNwbCGu HMqkTKX2U43ca0N2CERjR MWyRWJ7oMV9cO6peYtmmx ogbGVmdDsgdmVydGljYWw hIEbaN024PMHr uTkgAIRlwI0hVTZokCIxp SmuPK7hUEYxezckUaRIGB BQLCBIQUxFWSBOSUNPTEU 0X8CvFto1CJZo kLewUM3guOWwFIwjSk9zi JliyRtcKL2hABTkfsqcJJ XalR2mEWWtlGTnlKamIB7 aAANfrnwje822 LtHbNCV3IAAlvDGdJ1Iob B5nXxTuIHZlNNNjX2UtuZ OgVNxxL814IAkvVeW8WAO btfYzX4ZbAQUw pCbfGaO7o6L5Lu8fXS5lF N9uQYp6OS61IQ85gUOcs5 C0kEH9N0CpAGSkdfnjonh ryMJ0OYVkEPVm aM33mXEcOQvaUp6ws5Y8r 934JQGpKSJgdR78Ww0jtK vfEUScgKLAoJ7dlbyiw7c vcjogIzAwMDAw REl4TBq3ZJQddKulOvHbI UN0ToB1ZTU4aOClmV0upX uyqhoeeX0hLtg+MjQgWWV uxwV2O3ReGxg7 DQFbeNmuBF1uzFTvAUgpC j5kmDkevVjuJZ2cARCmwi lcLETbbK6nJCBngIChcPg uLD4nFZCehnae y775BgDbOIK4OHIdiYLsI 0WsyT0eXuQlOPExSHPpU7 QcnNDqWXptI312NWrqGlZ 3LYOcvnCaL7Ih WJLkxOysJvM8r5U2Hl8QR B5qwJT7E1BuOqz0YXCwbF xiKQ5imPYaCIwrIx0lvIp bnLwzUR3gFCNr gyxvUHHseE5bISOytXQia GscWL8rZYDbsuaat762Kh ThANB7IPCukEEwN9WowI2 yOiAjMDAwMDAw E4YneNOwPGluW361UNcrG aL3UQByhqVuC7IuIFGedB syDxY6j1V7Pm6YmBObZDP hRW06ZH99QQ58 V0MkYptlkRTyyAQ+PHRhY mxlIHdpZHRoPScxMDAlJy EimAqpPL6tFm6uSNRvMKB vbGxhcHNlOiBj f3ahUVLdGUtkIA7biRamX 5JrjIP8NQCxt0x5Pl92S1 9mK5YdsGW+VHRpuOG4iXJ 0mG3bHdVeMnI1 AZhmI862MsYbbSVwRiaqz 7lep3bdbDm6SrAhKPYyiw HvpOlbPNZ2p2RoPi01N93 sIHdpZHRoPSIy QDMbHSDpfAykts2mpX9dZ i8+YKTgzHO1tWB3lS1xVx EwCrD3TFuvZ910AqOvrEI jMkqpH55mW4Ge dXA+OSYwAdf5FZDttBxtB N7qwQSuPBoqLs5dCJL8Ft MjQsNzRYhuW7EiBEGphqo lihotqHN4WRVb GIVwrT75Ic4wbXzeJu9zS GQpSXJ1RCBoyYOfW6CilY 3uGcDpVSEbXVMiV2RsvIY vEKkfD577GAgp JfN1ODNpdaEpD5YgWQWvn OboSjN0p4G7Dq5EuCmwpA ArLW7zMzTbLDx3N5AdXql 9SZLitTgsJY7t aLBtGKeuJr5doPihrIuaM F3yTINffajik866ZgPhi9 nqVDHhwBPwQXbyALX6W31 zi1N5IRAyLAVd PCF3pLZ2aC8gbIjpecszz GVmdDsgdmVydGljYWwtYW pkT823KXHqcBtkSjIWRyg 3U3EuKhd5FQLn mComES9qhXFuSQmnJw6sm QyrlUjnOV0dZLTfrwkmb2 19UlMuh6xvNXWdaRKbNWe mBHX7A60qj7N8 TJAuVYAsXEP2fMR1nR6kx GlnbjogbGVmdDsgdmVydG bwXGvhPOqeE996HEMmzOf gDp4CGma1Y6Qo Qyr9ZXXupWjdYC2acTUfV WbxHu4rgAyobNutXB5aLZ Tmpcwbq403AbRzq2kyCAL wcHQgVGltZXM7 J43uj1W8BURzMQOsLQK3s XI3oP7akYztdcmwmVPlmB wvkuAdvGebDCupTDpxE49 6IHRvcDsnPlBh eWVyOjwvdGQ+SO82rz52Q 8QjXgxfIfg7PMApUKU1uD G9zP3zRCPhEFykb0N8tJN 0J5RkeoNyov0i b2xs (more content not included)... [facility] XR Ankle 3+ Views Lefton [...] Transcribed by: JENN Technologist: STEVEN [facility] Consent for Treatmenton Consent for Treatment [id number] .00CD:127 [facility] Physician Orderon 04-03-2022 Physician Order [id number] 1.00CD:127 Normal [facility] XR ANKLE LT MIN 3 Von 2021 XR ANKLE LT MIN 3 V EXAM: XR ANKLE LT PA N 3 V, XR FOOT LT MIN [...] authenticated by: MARQUIS HENSON Date: 2022-03-11 16:04 [facility] PAP ACOG PANEL 2: 21 to 29on 10-24-2021 . . Normal [facility] Comment on above: Performed By: #### [id number] #### [facility] [address] [address] [address] Aura Griffiths Age Gdln ACOG Testing - [facility] Comment on above: Performed By: #### [id number] #### [facility] [address] [address] [address] Aura Griffiths DIAGNOSIS: Comment [facility] Comment on above: Result Comment: NEGA TIVE FOR INTRAEPITHELIAL LESION OR MALIGNANCY. Performed By: #### [id number] #### [facility] [address] [address] [address] Aura Griffiths Methodology: Comment Normal [facility] Comment on above: Result Comment: This liquid based ThinPrep(R) pap test was screened with the use of an image guided system. Performed By: #### [id number] #### [facility] [address] [address] [address] Aura Griffiths Note: Comment Normal [facility] Comment on above: Result Comment: The Pap smear is a screening test designed to aid in the detection of premalignant and malignant conditions of the uterine cervix. It is not a diagnostic procedure and should not be used as the sole means of detecting cervical cancer. Both false-positive and false-negative reports do occur. . Performed By: #### [id number] #### [facility] [address] [address] [address] Aura Griffiths Performed by: Comment Normal [facility] Comment on above: Result Comment: Radha Trevino, Slab Polisher (ASCP) Performed By: #### [id number] #### [facility] [address] [address] [address] Aura Griffiths Reflex Criteria: Comment Normal [facility] Comment on above: Result Comment: The HPV DNA reflex criteria were not met with this specimen result therefore, no HPV testing was performed. . Performed By: #### [id number] #### [facility] [address] [address] [address] Aura Griffiths Specimen adequacy: Comment Normal [facility] Comment on above: Result Comment: Sati sfactory for evaluation. Endocervical and/or squamous metaplastic cells (endocervical component) are present. Performed By: #### [id number] #### [facility] [address] [address] [address] Aura Griffiths Vital Signs Date Time Vital Sign Value Performing Clinician Faci lity 11-06-2024 14:02-0500 Body mass index (BMI) [Ratio] 45.68 kg/m2 Karla OSPINA Work Phone: [facility] 11-06-2024 14:02-0500 Body weight 120.71 kg Karla OSPINA Work Phone: [facility] 11-06-2024 14:02-0500 Diastolic blood pressure 80 mm[Hg] Karla Burns PA Work Phone: [facility] 11-06-2024 14:02-0500 Systolic blood pressure 126 mm[Hg] Karla Burns PA Work Phone: [facility] 10-23-2024 11:16-0500 Body mass index (BMI) [Ratio] 45.66 kg/m2 Karla Burns PA Work Phone: [facility] 10-23-2024 11:16-0500 Body weight 120.66 kg Karla OSPINA Work Phone: [facility] 10-23-2024 11:16-0500 Diastolic blood pressure 80 mm[Hg] Kalra OSPINA Work Phone: [facility] 10-23-2024 11:16-0500 Systolic blood pressure 124 mm[Hg] Karla OSPINA Work Phone: [facility] 10-09-2024 10:43-0500 Body mass index (BMI) [Ratio] 46.17 kg/m2 Carrie Ora DO Work Phone: [facility] 10-09-2024 10:43-0500 Body weight 122.02 kg Carrie Ora DO Work Phone: [facility] 10-09-2024 10:43-0500 Diastolic blood pressure 70 mm[Hg] Carrie Ora DO Work Phone: [facility] 10-09-2024 10:43-0500 Systolic blood pressure 120 mm[Hg] Carrie Ora DO Work Phone: [facility] 09-25-2024 08:58-0500 Body mass index (BMI) [Ratio] 45.49 kg/m2 Carrie Ora DO Work Phone: [facility] 09-25-2024 08:58-0500 Body weight 120.2 kg Carrie Ora DO Work Phone: [facility] 09-25-2024 08:58-0500 Diastolic blood pressure 72 mm[Hg] Carrie Ora DO Work Phone: [facility] 09-25-2024 08:58-0500 Systolic blood pressure 122 mm[Hg] Carrie Ora DO Work Phone: [facility] 2024 09:48-0500 Body mass index (BMI) [Ratio] 44.97 kg/m2 Karla OSPINA Work Phone: [facility] 2024 09:48-0500 Body weight 118.84 kg Karla OSPINA Work Phone: [facility] 2024 09:48-0500 Diastolic blood pressure 70 mm[Hg] Karla OSPINA Work Phone: [facility] 2024 09:48-0500 Systolic blood pressure 120 mm[Hg] Karla OSPINA Work Phone: [facility] 08-14-2024 11:20-0500 Body mass index (BMI) [Ratio] 44.53 kg/m2 Carrie Ora DO Work Phone: [facility] 08-14-2024 11:20-0500 Body weight 117.66 kg Carrie Ora DO Work Phone: [facility] 08-14-2024 11:20-0500 Diastolic blood pressure 82 mm[Hg] Carrie Ora DO Work Phone: [facility] 08-14-2024 11:20-0500 Systolic blood pressure 124 mm[Hg] Carrie Ora DO Work Phone: [facility] 07-17-2024 10:48-0500 Body mass index (BMI) [Ratio] 45.28 kg/m2 Carrie Ora DO Work Phone: [facility] 07-17-2024 10:48-0500 Body weight 119.66 kg Carrie Ora DO Work Phone: [facility] 07-17-2024 10:48-0500 Diastolic blood pressure 70 mm[Hg] Carrie Ora DO Work Phone: [facility] 07-17-2024 10:48-0500 Systolic blood pressure 120 mm[Hg] Carrie Ora DO Work Phone: [facility] 06-17-2024 10:48-0400 Body mass index (BMI) [Ratio] 44.99 kg/m2 Carrie Ora DO Work Phone: [facility] 06-17-2024 10:48-0400 Body weight 118.9 kg Carrie Ora DO Work Phone: [facility] 06-17-2024 10:48-0400 Diastolic blood pressure 70 mm[Hg] Carrie Ora DO Work Phone: [facility] 06-17-2024 10:48-0400 Systolic blood pressure 120 mm[Hg] Carrie Ora DO Work Phone: [facility] 05-16-2024 09:16-0400 Body mass index (BMI) [Ratio] 46 kg/m2 [facility] 05-16-2024 09:16-0400 Body weight 121.56 kg [facility] 05-16-2024 09:16-0400 Diastolic blood pressure 70 mm[Hg] [facility] 05-16-2024 09:16-0400 Systolic blood pressure 120 mm[Hg] [facility] Nurse [facility] Encounters Encounter Date Encounter Type Care Provider Facility Start: 11-06-2024 End: 11-06-2024 Bamboo flowsheet Karla OSPINA Work Phone: [facility] Start: 11-06-2024 End: 11-06-2024 Bamboo flowsheet Karla OSPINA Work Phone: [facility] Start: 11-06-2024 End: 11-06-2024 flow sheet Karla OSPINA Work Phone: [facility] Comment on above: 33 weeks gestation o f ; Third trimester Start: 11-06-2024 End: 11-06-2024 ambulatory KARLA BURNS Not Available Start: 10-31-2024 End: 10-31-2024 Clinisync Result Encounter Carrie Ora DO Work Phone: [facility] External Department Unsolicited Start: 10-31-2024 End: 10-31-2024 Clinisync Result Encounter Carrie Ora DO Work Phone: [facility] External Department Unsolicited Start: 10-23-2024 End: 10-23-2024 Bamboo flowsheet Karla OSPINA Work Phone: [facility] Start: 10-23-2024 End: 10-23-2024 Bamboo flowsheet Karla OSPINA Work Phone: [facility] Start: 10-23-2024 End: 10-23-2024 Clinisync Result Encounter Carrie Ora DO Work Phone: [facility] External Department Unsolicited Start: 10-23-2024 End: 10-23-2024 flow sheet Karla OSPINA Work Phone: [facility] Comment on above: Third trimester preg charley; 31 weeks gestation of Start: 10-23-2024 End: 10-23-2024 ambulatory KARLA GRANT Not Available Start: 10-16-2024 End: 10-16-2024 Clinisync [...] Date Procedure Procedure Detail Performing Clinician Start: 11-06-2024 Urnls dip stick/tabl et rgnt non-auto w/o micrscp Karla OSPINA Work Phone: Start: 10-31-2024 US OB BPP W NON-STRESS Carrie Ora DO Work Phone: Start: 10-23-2024 US OB BPP W NON-STRESS Carrie Ora DO Work Phone: Start: 10-23-2024 Urnls dip stick/tabl et rgnt non-auto w/o micrscp Karla OSPINA Work Phone: Start: 10-16-2024 US OB BPP [...] Treatment Date Care Activity Detail Author Start: 11-24-2024 End: 11-24-2024 Patient encounter procedure 11/24/2024 9:30 AM EDT Routine [facility] [address] [place] [address] Carrie Payan, DO [address] [place] [address] [facility] Start: 11-06-2024 End: 11-06-2024 Patient encounter procedure [facility] Comment on above: Arrived Start: 10-23-2024 End: 10-23-2024 Patient encounter procedure [...] or unspecified fetus Expected: 10/09/2024, Expires: 10/09/2025 [facility] Comment on above: Expected: 10/09/2024 , Expires: 10/09/2025 Start: 10-09-2024 End: 10-09-2024 Patient encounter procedure 10/09/2024 10:40 AM EST Routine [facility] [address] [place] [address] Carrie Payan DO [address] [place] [address] [facility] Start: 10-09-2024 End: 10-09-2024 Professional / ancillary services management 10/09/2024 10:00 AM EST Ancillary Procedure [facility] [address] [place] [id number] [facility] Start: 09-25-2024 End: 09-25-2025 Measurement of glucose 3 hours after glucose challenge for glucose tolerance test Glucose tolerance, 3 hours Lab Routine Elevated glucose tolerance test Expected: 09/25/2024 (Approximate), Expires: 09/25/2025 [facility] Comment on above: Expected: 09/25/2024 [...] EST Ancillary Procedure [facility] [address] [place] [id number] [facility] Start: 07-17-2024 End: 09-16-2024 Alpha fetoprotein, maternal Alpha fetoprotein, maternal Lab Routine Second trimester Expected: 07/17/2024 (Approximate), Expires: 09/16/2024 [facility] Comment on above: [...] AM EST Routine [facility] [address] [place] [address] Carrie Payan DO [address] [facility] [address] [facility] [address] [place] [address] [facility] Start: 06-17-2024 End: 06-17-2024 [...] gestational age Expected: 05/16/2024 (Approximate), Expires: 05/16/2025 [facility] Comment on above: Expected: 05/16/2024 (Approximate), Expires: 05/16/2025 Start: 05-16-2024 End: 05-16-2025 US Pelvis transvaginal US OB transvaginal Imaging Routine Missed menses Expected: 05/16/2024 (Approximate), Expires: 05/16/2025 [facility] Comment on above: Expected: 05/16/2024 (Approximate), Expires: 05/16/2025 Bacteria identified in Urine by Culture Urine culture Microbiology Routine Missed menses Ordered: 05/16/2024 [facility] Comment on above: Ordered: 05/16/2024 Bacteria identified in Urine by Culture Urine culture Microbiology Routine UTI symptoms Ordered: 2024 [facility] Work Phone: Comment on above: Ordered: 2024 CBC W Auto Different ial panel - Blood CBC and differential Lab Routine Missed menses Ordered: 05/16/2024 [facility] Comment on above: Ordered: 05/16/2024 CHLAMYDIA TRACHOMATI S (GENITO/STI) CHLAMYDIA TRACHOMATIS (GENITO/STI) Lab Routine Exposure to STD Ordered: 07/17/2024 [facility] Comment on above: Ordered: 07/17/2024 Hemoglobin A1c/Hemoglobin.total in Blood Hemoglobin A1c Lab Routine Missed menses Ordered: 05/16/2024 [facility] Comment on above: Ordered: 05/16/2024 Hepatitis B virus surface Ag [Presence] in Serum or Plasma by Immunoassay Hepatitis B surface antigen Lab Routine Missed menses Ordered: 05/16/2024 [facility] Comment on above: Ordered: 05/16/2024 Hepatitis C virus Ab [Presence] in Serum or Plasma by Immunoassay Hepatitis C antibody Lab Routine Missed menses Ordered: 05/16/2024 [facility] Comment on above: Ordered: 05/16/2024 HIV-1/HIV-2 antigen/antibody combination immunoassay HIV-1 and HIV-2 antibodies Lab Routine Missed menses Ordered: 05/16/2024 [facility] Comment on above: Ordered: 05/16/2024 Neisseria gonorrhoea e DNA [Presence] in Unspecified specimen by XIOMARA with probe detection Neisseria gonorrhea DNA probe, direct Lab Routine Exposure to STD Ordered: 07/17/2024 [facility] Comment on above: Ordered: 07/17/2024 Reagin Ab [Presence] in Serum by RPR RPR Lab Routine Missed menses Ordered: 05/16/2024 [facility] Comment on above: Ordered: 05/16/2024 Rubella antibody, IgG Rubella an tibody, IgG Lab Routine Missed menses Ordered: 05/16/2024 [facility] Comment on above: Ordered: 05/16/2024 SURESWAB(R) ADVANCED VAGINITIS PLUS, TMA SURESWAB(R) ADVANCED VAGINITIS PLUS, TMA Pathology and Cytology Routine Vaginal discharge Ordered: 07/17/2024 [facility] Work Phone: Comment on above: Ordered: 07/17/2024 Payers Date Payer Category Payer Unknown [id number] 2023 [employer] Blue [employer] [id number] 2023 Unknown BCBS BCBS xxxxxx [id number] 2023-Present [phone] [address] [place] [address] [id number] 2023 Unknown [id number] 1997 Unknown [id number] [id number] 93 1997 Unknown [id number] 2.16.840.1.865291.3.579.2.5 93 1997 Unknown [id number] 2.16.840.1.405441.3.579.2.1 259 1997 Unknown [id number] 2.16.840.1.061897.3.579.2.1 259 1997 Unknown [id number] 2.16.840.1.935648.3.579.2.1 259 1997 Unknown [id number] 2.16.840.1.002610.3.579.2.1 259 1997 Unknown [id number] 2.16.840.1.058522.3.579.2.1 259 1997 Unknown [id number] 2.16.840.1.147328.3.579.2.1 259 1997 Unknown [id number] 2.16.840.1.104079.3.579.2.1 259 1997 Unknown [id number] 2.16.840.1.951477.3.579.2.1 259 1997 Unknown [id number] 2.16.840.1.757827.3.579.2.1 259 1997 Unknown [id number] 2.16.840.1.462106.3.579.2.1 259 1997 Unknown [id number] 2.16.840.1.385535.3.579.2.1 259 1959 Private Health Insurance [facility] [id number] 1959 Unknown [id number] Social History Date Type Detail Facility Start: 07-31-2023 Tobacco smoking stat [facility] Never smoked tobacco [facility] Start: 07-31-2023 Tobacco use and exposure Smokeless t obacco non-user [facility] Start: 05-16-2024 End: 11-06-2024 Alcoholic beverage intake Lifetime non-drinker (finding) [facility] Start: 07-31-2023 End: 04-07-2024 History of Social function [facility] Start: 07-31-2023 End: 04-07-2024 Tobacco use panel [facility] Start: 03-28-2024 [facility] Start: 1995 [facility] at Female [facility] Start: 01-23-2023 Gender identity Identifies as female gender (finding) [facility] Clinical Notes 05-16-2024 to 11-06-2024 BHAVESH Javier - 11/06/2024 1:50 PM BHAVESH Mares - 10/23/2024 10:50 AM Scarlet Dickens LPN - 10/09/2024 10:40 AM Scarlet Dickens LPN - 09/25/2024 9:00 AM EST Note Date & Type Note Facility 11-06-2024 History of Presen t illness Narrative Reason for Appointment: Patient ID: Kareen Forman is a 29 y.o. female who presents for Routine Visit Patient presents today for Return OB appointment. MEDICATIONS Current Outpatient Medications Medication Instructions aspirin 81 mg, Oral, Daily ALLERGIES No Known Allergies PROBLEMS Active Ambulatory [...] nursing note reviewed. Exam conducted with a trials manager present. Vitals: Estimated body mass index is 45.68 kg/m as calculated from the following: Height as of 01/24/23: 5' 4 . Weight as of this encounter: 266 lb 1.9 oz. BP: 126/80 Patient's last menstrual period was 03/14/2024. ASSESSMENT & PLAN ICD-10-CM 1. 33 weeks gestation of Z3A.33 POCT urinalysis dipstick manually resulted 2. Third trimester Z34.93 POCT urinalysis dipstick manually resulted Patient presents today for a routine obstetrics appointment. Patient is currently 33w6d with a Estimated Date of Delivery: 12/19/24. Patient to return to clinic in 2-3 weeks. Documented by Kathleen Dickens LPN on behalf of: BHAVESH Javier documented in this encounter [facility] 10-23-2024 History of Presen t illness Narrative [...] obesity with BMI of 40.0-44.9, adult ([facility]) Negative test On Depo-Provera for contraception HISTORY PAST MEDICAL HISTORY SOCIAL HISTORY Past Medical History: Diagnosis Date Depression screening Encounter for gynecological examination (general) (routine) without abnormal findings Family planning Insulin resistance Morbid obesity with BMI of 40.0-44.9, adult ([facility]) Negative test On [...] of: BHAVESH Javier documented in this encounter [facility] 10-09-2024 History of Presen t illness [...] obesity with BMI of 40.0-44.9, adult ([facility]) Negative test On Depo-Provera for contraception HISTORY PAST MEDICAL HISTORY SOCIAL HISTORY Past Medical History: Diagnosis Date Depression screening Encounter for gynecological examination (general) (routine) without abnormal findings Family planning Insulin resistance Morbid obesity with BMI of 40.0-44.9, adult ([facility]) Negative test On [...] nursing note reviewed. Exam conducted with a trials manager present. Vitals: Estimated body mass index [...] Carrie Payan DO documented in this encounter [facility] 09-25-2024 History of Presen t illness [...] obesity with BMI of 40.0-44.9, adult ([facility]) Negative test On Depo-Provera for contraception HISTORY PAST MEDICAL HISTORY SOCIAL HISTORY Past Medical History: Diagnosis Date Depression screening Encounter for gynecological examination (general) (routine) without abnormal findings Family planning Insulin resistance Morbid obesity with BMI of 40.0-44.9, adult ([facility]) Negative test On [...] nursing note reviewed. Exam conducted with a trials manager present. Vitals: Estimated body mass index [...] Carrie Payan DO documented in this encounter [facility] 2024 History of Presen t illness [...] obesity with BMI of 40.0-44.9, adult ([facility]) Negative test On Depo-Provera for contraception HISTORY PAST MEDICAL HISTORY SOCIAL HISTORY Past Medical History: Diagnosis Date Depression screening Encounter for gynecological examination (general) (routine) without abnormal findings Family planning Insulin resistance Morbid obesity with BMI of 40.0-44.9, adult ([facility]) Negative test On [...] nursing note reviewed. Exam conducted with a trials manager present. Vitals: Estimated body mass index [...] of: BHAVESH Javier documented in this encounter [facility] 08-14-2024 History of Presen t illness [...] obesity with BMI of 40.0-44.9, adult ([facility]) Negative test On [...] nursing note reviewed. Exam conducted with a trials manager present. Vitals: Estimated body mass index [...] Carrie Payan DO documented in this encounter [facility] 07-17-2024 History of Presen t illness [...] obesity with BMI of 40.0-44.9, adult ([facility]) Negative test On [...] nursing note reviewed. Exam conducted with a trials manager present. Vitals: Estimated body mass index [...] Carrie Payan DO documented in this encounter [facility] 06-17-2024 History of Presen t illness [...] nursing note reviewed. Exam conducted with a trials manager present. Vitals: Estimated body mass index [...] meat, and stay away from [facility]. Patient has been consulted regarding any [...] Karla Burns PA-C documented in this encounter [facility] 05-16-2024 History of Presen t illness [...] obesity with BMI of 40.0-44.9, adult ([facility]) Negative test On [...] meat, and stay away from [facility]. Patient has also been advised to [...] Shannan Peña LPN documented in this encounter [facility] Healthcare Evaluation note Diagnosis 13 weeks gestation [...] [facility] Diagnosis 33 weeks gestation of Third trimester state, incidental documented in this encounter [facility] Summary Purpose Family History No Family History Records FoundNo Family History Records FoundNo Family History Records Found Advance Directives No Advanced Directives Records FoundNo Advanced Directives Records FoundNo Advanced Directives Records Found Additional Source Comments INFORMATION SOURCE (unrecogn ized section and content) DATE CREATED AUTHOR 04/05/2022 Crystal Rodriguez [facility] pital DATE CREATED AUTHOR AUTHOR'S ORGANIZ ATION 04/08/2022 [facility] DATE CREATED AUTHOR AUTHOR'S ORGANIZ ATION 11/08/2024 [facility] Specialists [facility] Care Teams (unrecognized sec tion and content) Ink Jet Operator Relationship Specialty Start Date End Date Karla Ortega MD [address] [place] [address] PCP - General Family Medicine 01/24/23 Ink Jet Operator Relationship Specialty Start Date End Date Karla Ortega MD [address] [place] [address] PCP - General Family Medicine 01/24/23 Ink Jet Operator Relationship Specialty Start Date End Date Karla Ortega MD [address] [place] [address] PCP - General Family Medicine 01/24/23 Ink Jet Operator Relationship Specialty Start Date End Date Karla Ortega MD [address] [place] [address] PCP - General Family Medicine 01/24/23 Ink Jet Operator Relationship Specialty Start Date End Date Karla Ortega MD [address] [place] [address] PCP - General Family Medicine 01/24/23 Ink Jet Operator Relationship Specialty Start Date End Date Karla Ortega MD [address] [address] PCP - General Family Medicine 01/24/23 Ink Jet Operator Relationship Specialty Start Date End Date Karla Ortega MD [address] [place] [address] PCP - General Family Medicine 01/24/23 Ink Jet Operator Relationship Specialty Start Date End Date Karla Ortega MD [address] [place] [address] PCP - General Family Medicine 01/24/23 Ink Jet Operator Relationship Specialty Start Date End Date Karla Ortega MD [address] [place] [address] PCP - General Family Medicine 01/24/23 Ink Jet Operator Relationship Specialty Start Date End Date Karla Ortega MD [address] [place] [address] PCP - General Family Medicine 01/24/23 Ink Jet Operator Relationship Specialty Start Date End Date Karla Ortega MD [address] [place] [address] PCP - General Family Medicine 5/24/23 Reason for Visit (unrecogniz ed section and [...] BE BASED ON THE PRIMARY CLINICAL RECORDS. [employer] [facility]. provides no warranty or guarantee of the accuracy or completeness of information in this document.
[2024-11-10 19:06] VITALS: BP 130/78; PULSE 105
== END 2024-11-10 19:35 | disposition home or self-care (01) ==
LOC: FBCO 18:56 → FBC 18:59
PROVIDERS: Visit Provider Obstetrics & Gynecology
DX: O36.63X0 Maternal care for excessive fetal growth, third trimester, not applicable or unspecified (principal); Z3A.34 34 weeks gestation of pregnancy
CPT/HCPCS: 59025

== ENCOUNTER 2024-11-13 11:08 | Outpatient (OUT) | payer BC, SELFPAY ==
--- NOTE | 2024-11-13 11:14 | US_ITS ---
The [address] [address] Patient Name: KAREEN FORMAN MRN: [id number] date: 1995 Sex: F Assigned Patient Location: Current Patient Location: US Accession/Order Number: [id number] Exam Date: 11/13/2024 11:58 Report Date: 11/13/2024 11:59 At the request of: CARRIE ARREDONDO DO Procedure: US OB BPP w non-stress BIOPHYSICAL PROFILE: CLINICAL INFORMATION: Excessive growth COMPARISON: 11/06/2024 There is a single live intrauterine gestation in cephalic presentation. The reported gestational age is 34 weeks 6 days. The heart rate [id number] beats per minute. FINDINGS: TONE: 1 or more episodes of activity extension and flexion of extremity or opening and closing of the hand [Y] 2/2 GROSS BODY MOVEMENTS: 3 or more discrete body or limb movements [Y] 2/2 BREATHING MOVEMENTS: 1 or more episodes of breathing lasting at least 30 seconds [Y] 2/2 JENS: A single deepest vertical pocket of amniotic fluid greater than 2 cm [Y] 2/2 JENS: 15.8 cm. This is in normal range. Total score: 8/8 US/ OB BPP w non-stress IMPRESSION: NORMAL BIOPHYSICAL PROFILE Impression dictated by: Bita Mcdonough M.D.11/13/2024 11:59 AM Dictation Location: [place] [address] Electronically authenticated by: [id number] Y Date: 11/13/2024 11:59
--- OUTSIDE RECORDS SUMMARY | 2024-11-13 11:29 | XMS_ITS | CCD ---
Author Organization [facility] Care Team Providers Care Clay Modeler Name Role Phone DR CARRIE PAYAN Primary [...] aspirin 81 mg delayed release oral tablet (15 sources) Platelet Aggregation Inhibitor, Nonsteroidal Anti-inflammatory Drug [...] UA Negative Negative - 4(70) +++ mg/dL [facility] Blood, UA Negative Negative - 50 Roberto/mcL [facility] Clarity, UA Clear [facility] Healthca re Color, UA Yellow [facility] Healthcar e Glucose, UA Negative Negative - 1999(110) ++++ mg/dL [facility] Interpretation and review of laboratory results Abnormal [facility] Ketones, UA Negative Negative - 160(16) ++++ mg/dL [facility] Leukocytes, UA Trace Negative - 500+++ Christian/mcL [facility] Nitrite, UA Negative Negative - Positive [facility] pH, UA 6.5 5 - 9 [facility] Healthcar e Protein, UA Negative Negative - 1999(20) ++++ mg/dL [facility] Spec Grav, UA 1.025 1 - 1.03 [facility] Urobilinogen, UA 2.0 0.2 - 12 mg/dL [facility]car e US OB BPP W NON-STRESS on 10-31-2024 [place] [address] Ultrasound Report Signed Patient: KAREEN FORMAN MR#: [id number] : 1995 Acct:[id number] Age/Sex: 29 / F ADM Date: 10/30/24 Loc: US Attending Dr: Carrie Payan D.O. Ordering Physician: Carrie Payan D.O. Date of Service: 10/30/24 Procedure(s): US OB BPP w non-stress Accession Number(s): [id number] cc: KARLA ORTEGA; Carrie Payan D.O. The [place] [address] Patient Name: KAREEN FORMAN MRN: [facility]H:[id number] date: 1995 Sex: F Assigned Patient Location: [facility] Current Patient Location: Accession/Order Number: [id number] Exam Date: 10/31/2024 10:24 Report Date: 10/31/2024 10:25 At the request of: CARRIE PAYAN DO Procedure: US OB BPP w non-stress BIOPHYSICAL PROFILE: CLINICAL INFORMATION: EXCESSIVE GROWTH AFFECTING O36.60X0 COMPARISON: 10/23/2024 There is a single live intrauterine gestation in cephalic presentation. Reported age is 32 weeks 6 days. The heart rate [id number] ( beats per minute. FINDINGS: TONE: 1 [...] Bita Mcdonough M.D.10/31/2024 10:25 AM Dictation Location: [place] [address] Electronically authenticated by: [id number] Y Date: 10/31/2024 10:25 Dictated By: Bita Mcdonough M.D. Signed By: 10/31/24 1027 DD/ 1025 TD/TT: Automatic Furnace Operator: [facility] Radiology, Radiologist, MD - 10/31/2024 [place] [address] Ultrasound Report Signed Patient: KAREEN FORMAN MR#: [id number] : 1995 Acct:[id number] Age/Sex: 29 / F ADM Date: 10/30/24 Loc: US Attending Dr: Carrie Payan D.O. Ordering Physician: Carrie Payan D.O. Date of Service: 10/30/24 Procedure(s): US OB BPP w non-stress Accession Number(s): [id number] cc: KARLA ORTEGA; Carrie Payan D.O. The [place] [id number] Patient Name: KAREEN FORMAN MRN: [facility]:[id number] date: 1995 Sex: F Assigned Patient Location: [facility] Current Patient Location: Accession/Order Number: [id number] Exam Date: 10/31/2024 10:24 Report Date: 10/31/2024 10:25 At the request of: CARRIE PAYAN DO Procedure: US OB BPP w non-stress BIOPHYSICAL PROFILE: CLINICAL INFORMATION: EXCESSIVE GROWTH AFFECTING O36.60X0 COMPARISON: 10/23/2024 There is a single live intrauterine gestation in cephalic presentation. Reported age is 32 weeks 6 days. The heart rate [id number] ( beats per minute. FINDINGS: TONE: 1 [...] Bita Mcdonough M.D.10/31/2024 10:25 AM Dictation Location: [place] [address] Electronically authenticated by: [id number] Y Date: 10/31/2024 10:25 Dictated By: Bita Mcdonough M.D. Signed By: 10/31/24 1027 DD/ 1025 TD/TT: Automatic Furnace Operator: [facility] Radiology Study observation (narrative) [facility] US OB BPP W NON-STRESS Ordered By: Radiologist Radiology on 10-31-2024 [facility] Work Phone: US OB BPP W NON-STRESS on 10-23-2024 [place] [address] Ultrasound Report Signed Patient: KAREEN FORMAN MR#: [id number] : 1995 Acct:[id number] Age/Sex: 29 / F ADM Date: 10/23/24 Loc: US Attending Dr: Carrie Payan D.O. Ordering Physician: Carrie Payan D.O. Date of Service: 10/23/24 Procedure(s): US OB BPP w non-stress Accession Number(s): [id number] cc: KARLA ORTEGA; Carrie Payan D.O. The [address] [address] Patient Name: KAREEN FORMAN MRN: [facility]:[id number] date: 1995 Sex: F Assigned Patient Location: [facility] Current Patient Location: US Accession/Order Number: [id number] Exam Date: 10/23/2024 13:18 Report Date: 10/23/2024 22:17 At the request of: CARRIE PAYAN DO Procedure: US OB BPP w non-stress BPP. Reason for exam: Excessive growth. COMPARISON: BPP 10/16/2024. TECHNIQUE: Transabdominal imaging of the gravid uterus was obtained. 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 JENS measures 13.1 cm. heart rate 161 bpm. US/US OB BPP w non-stress Impression: BPP 8 out of 8. Correlation with NST is recommended. Impression dictated by: Claudio Schuster Jr., D.O.10/23/2024 10:17 PM Dictation Location: [place] [address] Electronically authenticated by: [id number] Y Date: 10/23/2024 22:17 Dictated By: Claudio Schuster M.D. Signed By: 10/23/242218 DD/ 16 TD/TT: Automatic Furnace Operator: [facility] Radiology, Radiologist, MD - 10/23/2024 [place] [address] Ultrasound Report Signed Patient: KAREEN FORMAN MR#: [id number] : 1995 Acct:[id number] Age/Sex: 29 / F ADM Date: 10/23/24 Loc: US Attending Dr: Carrie Payan D.O. Ordering Physician: Carrie Payan D.O. Date of Service: 10/23/24 Procedure(s): US OB BPP w non-stress Accession Number(s): [id number] cc: KARLA ORTEGA; Carrie Payan D.O. The [address] [address] Patient Name: KAREEN FORMAN MRN: [facility]:[id number] date: 1995 Sex: F Assigned Patient Location: [facility] Current Patient Location: US Accession/Order Number: [id number] Exam Date: 10/23/2024 13:18 Report Date: 10/23/2024 22:17 At the request of: CARRIE PAYAN DO Procedure: US OB BPP w non-stress BPP. Reason for exam: Excessive growth. COMPARISON: BPP 10/16/2024. TECHNIQUE: Transabdominal imaging of the gravid uterus was obtained. 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 JENS measures 13.1 cm. heart rate 161 bpm. US/US OB BPP w non-stress Impression: BPP 8 out of 8. Correlation with NST is recommended. Impression dictated by: Claudio Schuster Jr., D.O.10/23/2024 10:17 PM Dictation Location: [facility] [place] Electronically authenticated by: [id number] Y Date: 10/23/2024 22:17 Dictated By: Claudio Schuster M.D. Signed By: 10/23/242218 DD/ 16 TD/TT: Automatic Furnace Operator: [facility] Radiology Study observation (narrative) [facility] US OB BPP W NON-STRESS Ordered By: Radiologist Radiology on 10-23-2024 [facility] Work Phone: Urinalysis macro (dipstick) panel (U)on 10-23-2024 Bilirubin, UA Negative Negative - 4(70) +++ mg/dL [facility] Blood, UA Negative Negative - 50 Roberto/mcL [facility] Clarity, UA Clear [facility] re Color, UA Yellow [facility] [employer] Glucose, UA Negative Negative - 1999(110) ++++ mg/dL [facility] Interpretation and review of laboratory results Abnormal [facility] Ketones, UA Negative Negative - 160(16) ++++ mg/dL [facility] Leukocytes, UA Trace Negative - 500+++ Christian/mcL [facility] Nitrite, UA Negative Negative - Positive [facility] pH, UA 6.5 5 - 9 [facility] [employer] Protein, UA Negative Negative - 1999(20) ++++ mg/dL [facility] Spec Grav, UA 1.025 1 - 1.03 [facility] Urobilinogen, UA 1.0 0.2 - 12 mg/dL [facility] US OB BPP W NON-STRESS on 10-16-2024 The [place] [id number] Ultrasound Report Signed Patient: KAREEN FORMAN MR#: [id number] : 1995 Acct:[id number] Age/Sex: 29 / F ADM Date: 10/16/24 Loc: US Attending Dr: Carrie Payan D.O. Ordering Physician: Carrie Payan D.O. Date of Service: 10/16/24 Procedure(s): US OB BPP w non-stress Accession Number(s): [id number] cc: KARLA ORTEGA; Carrie Payan D.O. The [address] [address] Patient Name: KAREEN FORMAN MRN: [facility]:[id number] date: 1995 Sex: F Assigned Patient Location: US Current Patient Location: Accession/Order Number: [id number] Exam Date: 10/16/2024 13:57 Report Date: 10/16/2024 [...] Signed By: 10/16/24 1544 DD/ 154 TD/TT: Automatic Furnace Operator: [facility] Radiology, Radiologist, MD - 10/16/2024 [place] [address] Ultrasound Report Signed Patient: KAREEN FORMAN MR#: [id number] : 1995 Acct:[id number] Age/Sex: 29 / F ADM Date: 10/16/24 Loc: US Attending Dr: Carrie Payan D.O. Ordering Physician: Carrie Payan D.O. Date of Service: 10/16/24 Procedure(s): US OB BPP w non-stress Accession Number(s): [id number] cc: KARLA ORTEGA; Carrie Payan D.O. [place] [address] Patient Name: KAREEN FORMAN MRN: [id number] date: 1995 Sex: F Assigned Patient Location: US Current Patient Location: Accession/Order Number: [id number] Exam Date: 10/16/2024 13:57 Report Date: 10/16/2024 [...] Signed By: 10/16/24 1544 DD/ 154 TD/TT: Automatic Furnace Operator: [facility] Radiology Study observation (narrative) [facility] US OB BPP W NON-STRESS Ordered By: Radiologist Radiology on 10-16-2024 [facility] [employer] Work Phone: US OB FOLLOW UP [...] II, MD, PHD at 10-Oct-2024 07:43:20 AM [facility] Normal Not Available Comment on above: Order Comment: US OB SCAN FOR GROWTH Estimated Date of Delivery: 12/19/24 Gestational Age as of 09/25/2024: 27w6d Urinalysis macro (dipstick) panel (U)on 10-09-2024 Bilirubin, UA Negative Negative - 4(70) +++ mg/dL [facility] Blood, UA Negative Negative - 50 Roberto/mcL [facility] Clarity, UA Clear [facility] re Color, UA Yellow [facility] Glucose, UA Positive Negative - 2000(110) ++++ mg/dL [facility] Comment on above: 100 Interpretation and review of laboratory results Abnormal [facility] Ketones, UA Positive Negative - 160(16) ++++ mg/dL [facility] Comment on above: 15 Leukocytes, UA Negative Negative - 500+++ Christian/mcL [facility] Nitrite, UA Negative Negative - Positive [facility] pH, UA 7 5 - 9 [facility] Healthcar e Protein, UA Trace Negative - 1999(20) ++++ mg/dL [facility] Spec Grav, UA 1.025 1 - 1.03 [facility] Urobilinogen, UA 0.2 0.2 - 12 mg/dL [facility] GLUCOSE TOLERANCE 3 HOURon 0 10-07-2024 GLUCOSE TOLERANCE 3 HOUR mg/dL [facility] Comment on above: GLU FAST 83 (<95) Co l: 10/07/24 0909 GLU 1HR 163 (<180) Col: 10/07/24 1012 GLU 2HR 146 (<155) Col: 10/07/24 1112 GLU 3HR 83 (<140) Col: 10/07/24 1212 [facility] Healthcar e Urinalysis macro (dipstick) panel (U)on 09-25-2024 Bilirubin, UA Negative Negative - 4(70) +++ mg/dL [facility] Blood, UA Negative Negative - 50 Roberto/mcL [facility] Clarity, UA Clear [facility] Healthca re Color, UA Yellow [facility] Health[facility] e Glucose, UA Negative Negative - 1999(110) ++++ mg/dL [facility] Interpretation and review of laboratory results Abnormal [facility] Ketones, UA Negative Negative - 160(16) ++++ mg/dL [facility] Leukocytes, UA Positive Negative - 500+++ Christian/mcL [facility] Comment on above: small Nitrite, UA Negative Negative - Positive [facility] pH, UA 8.5 5 - 9 [facility] Healthcar e Protein, UA Negative Negative - 1999(20) ++++ mg/dL [facility] Spec Grav, UA 1.02 1 - 1.03 [facility] Urobilinogen, UA 1.0 0.2 - 12 mg/dL [facility] Urinalysis macro (dipstick) panel (U)on 2024 Bilirubin, UA Negative Negative - 4(70) +++ mg/dL [facility] Blood, UA Negative Negative - 50 Roberto/mcL [facility] Clarity, UA Clear [facility] re Color, UA Yellow [facility] Healthcar e Glucose, UA Negative Negative - 1999(110) ++++ mg/dL [facility] Interpretation and review of laboratory results Abnormal [facility] Ketones, UA Negative Negative - 160(16) ++++ mg/dL [facility] Leukocytes, UA Moderate Negative - 500+++ Christian/mcL [facility] Nitrite, UA Positive Negative - Positive [facility] pH, UA 7 5 - 9 [facility] Healthcar e Protein, UA Positive Negative - 1999(20) ++++ mg/dL [facility] Comment on above: 100 Spec Grav, UA 1.02 1 - 1.03 [facility] Urobilinogen, UA 1.0 0.2 - 12 mg/dL [facility] Health[facility] e Urinalysis macro (dipstick) panel (U)on 08-14-2024 Bilirubin, UA Negative Negative - 4(70) +++ mg/dL [facility] Blood, UA Negative Negative - 50 Roberto/mcL [facility] Clarity, UA Clear [facility] re Color, UA Yellow [facility] Glucose, UA Negative Negative - 1999(110) ++++ mg/dL [facility] Interpretation and review of laboratory results Abnormal [facility] Ketones, UA Negative Negative - 160(16) ++++ mg/dL [facility] Leukocytes, UA Negative Negative - 500+++ Christian/mcL [facility] Nitrite, UA Negative Negative - Positive [facility] pH, UA 5.5 5 - 9 [facility] Healthcar e Protein, UA Negative Negative - 1999(20) ++++ mg/dL [facility] Spec Grav, UA 1.02 1 - 1.03 [facility] Urobilinogen, UA 1.0 0.2 - 12 mg/dL [facility] Health[facility] e ALL CBC WITH AUTO DIFFon BASOPHILS ABSOLUTE AUTO 0 [facility] Basophils/100 WBC (Bld) 0.3 % 0.2 - 2.0 % [facility] Eosinophils/100 WBC (Bld) 0.9 % 0.9 - 7.0 % [facility] Erythrocyte distribution width (RBC) [Ratio] 14.8 % 11.0 - 15.0 % [facility] Hematocrit (Bld) [Volume fraction] 36.3 % 36.0 - 48.0 % [facility] Healthcar e Hemoglobin (Bld) [Mass/Vol] 11.9 g/dL Low 12.0 - 16.0 g/dL [facility] IMMATURE GRANULOCYTES ABS AUTO 0.04 High [facility] Immature granulocytes/100 WBC (Bld) 0.4 % 0.0 - 0.5 % [facility] Interpretation and review of laboratory results Abnormal [facility] LYMPHOCYTES ABSOLUTE AUTO 1.6 [facility] Lymphocytes/100 WBC (Bld) 15 % Low 20.5 - 60.0 % [facility] MCH (RBC) [Entitic mass] 27.2 pg 26.7 - 34.0 pg [facility] MCHC (RBC) [Mass/Vol] 32.8 g/dL 29.9 - 35.2 g/dL [facility] MCV (RBC) [Entitic vol] 83.1 fL 81.0 - 99.0 fL [facility] MONOCYTES ABSOLUTE AUTO 0.8 [facility] Monocytes/100 WBC (Bld) 7.4 % 1.7 - 12.0 % [facility] NEUTROPHILS ABSOLUTE AUTO 7.8 High [facility] Neutrophils/100 WBC (Bld) 76 % High 43.0 - 75.0 % [facility] Platelet mean volume (Bld) [Entitic vol] 9.2 fL Low 9.5 - 13.5 fL [facility] Healthc are TBH EO # 0.1 [facility] Healthcar e TBH PLT 322 [facility] Healthcar e TB RBC 4.37 [facility] Healthcar e TB WBC 10.3 [facility] Healthcar e [facility] Healthcar e GLUCOSE 1 HOURon 07-30-2024 Glucose [Mass/Vol] 173 mg/dL High NINF - 13 0 mg/dL [facility] Interpretation and review of laboratory results Abnormal [facility] Healthcar e RECURRENT VAGINITIS (HTRX)on 07-18-2024 ATOPOBIUM VAGINAE 21.066 Abnormal [facility] ATOPOBIUM VAGINAE Detected Abnormal [facility] BVAB 2,3 (BACTERIAL VAGINOSIS ASSOCIATED BACTERIA 2, 3); MOBILUNCUS SPP 20.228 Abnormal [facility] BVAB 2,3 (BACTERIAL VAGINOSIS ASSOCIATED BACTERIA 2, 3); MOBILUNCUS SPP Detected Abnormal [facility] BLANCA ALBICANS, PARAPSILOSIS, TROPICALIS 0 [facility] BLANCA ALBICANS, PARAPSILOSIS, TROPICALIS Not detected [facility] BLANCA GLABRATA 0 [facility] BLANCA GLABRATA Not detected [facility] BLANCA KRUSEI 0 [facility] Healt hcare BLANCA KRUSEI Not detected [facility] CHLAMYDIA TRACHOMATIS 0 [facility] Healthcare CHLAMYDIA TRACHOMATIS Not detected [facility] Healthcare ERMB, C; MEFA 26.225 Abnormal [facility] Health care ERMB, C; MEFA Detected Abnormal [facility] GARDNERELLA VAGINALIS 21.744 Abnormal [facility] Healthcare GARDNERELLA VAGINALIS Detected Abnormal [facility] Interpretation and review of laboratory results Abnormal [facility] MEGASPHAERA (TYPES 1, 2) 0 [facility] MEGASPHAERA (TYPES 1, 2) Not detected [facility] MYCOPLASMA GENITALIUM 0 [facility] MYCOPLASMA GENITALIUM Not detected [facility] NEISSERIA GONORRHOEAE 0 [facility] NEISSERIA GONORRHOEAE Not detected [facility] TET B, TET M 24.757 Abnormal [facility] Healthc are TET B, TET M Detected Abnormal [facility] Healthc are TRICHOMONAS VAGINALIS 0 [facility] TRICHOMONAS VAGINALIS Not detected [facility] Urinalysis macro (dipstick) panel (U)on 07-17-2024 Bilirubin, UA Negative Negative - 4(70) +++ mg/dL [facility] Blood, UA Negative Negative - 50 Roberto/mcL [facility] Clarity, UA Clear [facility] Healthca re Color, UA Yellow [facility] Health[facility] e Glucose, UA Negative Negative - 1999(110) ++++ mg/dL [facility] Interpretation and review of laboratory results Abnormal [facility] Ketones, UA Positive Negative - 160(16) ++++ mg/dL [facility] Leukocytes, UA Trace Negative - 500+++ Christian/mcL [facility] Nitrite, UA Negative Negative - Positive [facility] pH, UA 5.5 5 - 9 [facility] Health[facility] e Protein, UA Trace Negative - 1999(20) ++++ mg/dL [facility] Spec Grav, UA 1.03 1 - 1.03 [facility] Urobilinogen, UA 0.2 0.2 - 12 mg/dL [facility] Urinalysis macro (dipstick) panel (U)on 06-17-2024 Bilirubin, UA Negative Negative - 4(70) +++ mg/dL [facility] Blood, UA Negative Negative - 50 Roberto/mcL [facility] Clarity, UA Clear [facility] re Color, UA Yellow [facility] Glucose, UA Negative Negative - 1999(110) ++++ mg/dL [facility] Interpretation and review of laboratory results Abnormal [facility] Ketones, UA Negative Negative - 160(16) ++++ mg/dL [facility] Leukocytes, UA Negative Negative - 500+++ Christian/mcL [facility] Nitrite, UA Negative Negative - Positive [facility] pH, UA 6 5 - 9 [facility] Protein, UA Positive Negative - 1999(20) ++++ mg/dL [facility] Comment on above: 100 Spec Grav, UA 1.03 1 - 1.03 [facility] Urobilinogen, UA 0.2 0.2 - 12 mg/dL [facility] e ALL CBC WITH AUTO DIFFon BASOPHILS ABSOLUTE AUTO 0.0 [facility] Basophils/100 WBC (Bld) 0.4 % 0.2 - 2.0 % [facility] Eosinophils/100 WBC (Bld) 1.1 % 0.9 - 7.0 % [facility] Erythrocyte distribution width (RBC) [Ratio] 14.2 % 11.0 - 15.0 % [facility] Hematocrit (Bld) [Volume fraction] 39.3 % 36.0 - 48.0 % [facility] Hemoglobin (Bld) [Mass/Vol] 12.8 g/dL 12.0 - 16.0 g/dL [facility] IMMATURE GRANULOCYTES ABS AUTO 0.02 [facility] Immature granulocytes/100 WBC (Bld) 0.3 % 0.0 - 0.5 % [facility] Interpretation and review of laboratory results Abnormal [facility] LYMPHOCYTES ABSOLUTE AUTO 1.6 [facility] Lymphocytes/100 WBC (Bld) 21.5 % 20.5 - 60.0 % [facility] MCH (RBC) [Entitic mass] 26.8 pg 26.7 - 34.0 pg [facility] MCHC (RBC) [Mass/Vol] 32.6 g/dL 29.9 - 35.2 g/dL [facility] MCV (RBC) [Entitic vol] 82.2 fL 81.0 - 99.0 fL [facility] MONOCYTES ABSOLUTE AUTO 0.4 [facility] Monocytes/100 WBC (Bld) 5.1 % [...] Health[facility] e Coding Summary.on 04-07-2022 Coding Summary. [id number] G h0bWw+PGhlYWQ+XJ0KQLO pW66lhANdzH5NB2bJAP5P ZTBNUVPANZ9OPH6czSG8J UriR7FrsiQq HmtnwSGrFV99HXw0OEH7e AenBAjffQ9czSXaT7i9Wk RmWL57cK68CCdmXLZsRmD 3LjZpbjsgbWFy I4inFrEehBHjZja+PHRhY mxlIHdpZHRoPScxMDAlJy TddNviFN1cRn0xNMLiBZZ vbGxhcHNlOiBj j6pbYFRiGAlaWG1meUqbQ 2FpnNX6HQTur9i6Od26hE I+CFWcYUB9gXddLSbxd18 7AuRoh2wyDHP0 eZUbMXzfZMD7W89oi4Y0I RVvNHRvAKC1lAN4xC2ttT cxfbhbT4LcyTLkLtZ6KBV 3kEOgdU1zjSpr hjkdaU2gDzl+K38JFX8VA HOJXK5QGzv5N2ZxEdfpjN I+GW44JOFkVO71tZHdzHQ cv8uymHs9LzXn OOFtXWX9sFbsAUlrl5BuT EUhQ26szLJpq1W7UYEhrN uyrJFuSpTpaIG3hE5zIDb ewzfxy4pjajkm Illrz5xghu63aV63O98kC XviLRDpRWG8MNLoNBUzfB szqq5avH6tAw4+XXsdj9f to8qqnYi8AfEx MIBqhxIcqOeoGZX1u7JsC o67R0DyhLcku5OpMdv6xn 42rPPbl7O0bZA6LNvqVEE qfS3eJOruSoB8 ZFDtUyYtvV26wOHmSOkiT v0kiGhjqAxhTY9oRLBwow tyLBJxkO4xHKRxzZChjEv rCB8hJDGmvkco p660ReTqMOQ7VOXgkZYjS 0FvvL4qLwNlQSVxVJBeF5 JxvHPiSVmyI169JUdaKhZ 5WXUntdDkC0Az GOLvjEouQgB6z2M8Oe4Th 0RbopumPIU8JXjpLBA0Jn L4ZiIjEmY3G5GaCny0MQX ulQaaNJ6yB9Yg EJMuumhlxkferHR5PLLkE IEpkD21qGImXSjrAv3xv9 N3f883ZDYjSGSxvB63Xa2 udDogMTBwdCBU fR0xekuoc7mmxwftGrCjU AWlPPr5OVd9FGYauJapDl HyCCQ5PrL2YSA2ePHtaQ8 bbFqjbaxdqN9s Oyc+S14csZ8oMCG2COS6b cjaKUGfuuOcBJ86RY21H9 RyPjwvdGFibGU+PGRpdiB vpSdmVA9gJcSx e3bli1JdYNbnS5NdKPGmF HwsRwl9EDAlNZH9tVZ4pP 2bKLCqUPbno7O7pYL9O7W cmtBhbp9gl2hm JRYuZUovC01uiDBlz1K1E ZHueVM1IEHcoJtfNzGzfJ 93Oyc+TVUgiDebj4QuVrf gj3kew5qnhGs0 VuSmOWDzkkEuuBedWIL5h 7VxDb80E17dVUrwMFHwOK ZyHIPlWUFopYapju1jbJ7 wIi8+PGNvbCB3 vOG7nY1oEHOpDiB6DFflD 588QjJuaOOwDegti6zgh3 kdmIc5NnQmOWVzebWutEs zHLJ3z0WgHp43 A03fFBaiWFYwEGCuYVMrM EXkuArzaz8neI2pXn2+PC 4xk8oncr27eX04dVV+PHR zXPN5wSvlLVzt MPJtxP7mOCsnHpE0UZFbS fNdoE14sSToVSplTa4ryT jfmLenAM9yZHVjbftzn22 6NzZps5onMEJv vTSbFGchDQW5R56sj4W5V LRsQMNcJYC5fRN2fN9kyO lnbjogbGVmdDsgdmVydGl lUWnoYQenL885 IHRvcDsnPlBhdGllbnQgT gJpGFf2S1UlAxf9YIKkmB jcKA1ywJCaUFoeVa8lgWv jsMpwSO6nQWYg rmiig097UjXoc2teQCTdr PQfRLtyOHQ3B41jq3W6BI YwGJRkSMH4qCV3eE0voRp nbjogbGVmdDsg uwJfaYwyAPxeZQfiB641V HRvcDsnPkJpcnRoIERhdG Q1MC96GL48oEDxu5W9uFZ 0K3KrXWZzttcj rcbghPA8VQLsYFDunI06P c4qjPllJv0eILYiCNC1DJ IsyIBjW9KexR0sMrXiINT kVIPaT0SlhGUl OHotG654ODrbSrU9PPGpv xIdK3XlXDVtrWlbQrT7j2 L8Lz7YN2B3AC47HO98uBT ay7V3rXD1O1Bw VAJqasphqcymyIJ1JAUgP WHmiM82Xn3stNxyXc7tZS OaTFS3UTHxbXQuM0AptA9 yOiAjMDAwMDAw O0SjsMXvUWymW524UTwnS qX5KUXrygTxI3TeTWAvtQ diDcD8p5R6Gg4XXXt9XW2 0LW17tLKjo7M9 nVZ3P0PqBHWhqqsylenbq WM3NKSsMBBnkF64Va8lkC jfKw6cQSRbKLS3UBLvpZH qX9OqhG2pIzTl QDSjCBFzR1StsYQjTKoiY 573BDomRgE0NTJyoyLiK5 HfDNLwjWliTvL9p0N8Wf8 BAIEtKP59JBJ9 uNH9GX57TW81Y5RnQgdsr GFibGU+PHRhYmxlIHdpZH RoPScxMDAlJyBzdHlsZT0 yAs6cHXTjMDBj qDyiqNDbPjQgf5cnJHTbD CbiXE9ugRvpF0EwuPG0ST Jba5h0Oo45A93sC8OmnIZ +ESHhbPB9bVD2 zR0zYcEcUzX0APgoL642Q wRtkVQfZhqdd1ojm2adjC t5KaL7UNVnzzZldXbkQHB 4r2BuRd68Y27d IHdpZHRoPSIxNSUiIHZhb Wxcvc0tmO1cQw8+PGNvbC R0fTM2cG6uEjEvKmE6APi aP092JiPsmMVz Oejlo1uoq5itxSm4UnOjH ICqfcCihJawSNH4q6HnWo 06B2JysKxab4JmXal8jv6 8mNZvk8N5fGR7 N1ErJGMwuchaeDVikOafD S2xRTLkzxukYKMmsT8oCS EgL4t4FmHoOnK2LYpvD6Q yshZ6AXHwpEOx QZnhNPF1F30hl2W3NFShS HKkUUQ9cKK6jS6zoTjmye ogbGVmdDsgdmVydGljYWw dHVneK540ZVKr kGjuPYOmtH1oBNPxgBLkd EvrGE3sLTWtjkjaIvHWGD BQLCBIQUxFWSBOSUNPTEU 8K8PyUny9TOPx uBjbZE6huHFlCJejAa3sn PsjlXdxTT5xZNAgtlcvXV VuyE8sWHKqrXNecWtuFB8 wIZCzherjo825 NkVpXPD2YDUlkKMbH7Qot T5tUfIdSKMlTPLkF1RxiP DfDHiiT803ZHgmYlS8NWO svtDaO2StMLSk fTzhQlW0n9N2Jy2tAF6lB Y0qPQb6LG44QW30lJStr3 Q7xNL3B6YsBBArglpzkbk zgLD3PVLaYAVt fX13kUExWLbqQy5js0T0x 072XMBxWQEzsU46Dn6uiA xzHUTkyVOYxV5dftnxm4t vcjogIzAwMDAw ORt5SPi4ATHajBgfHaKwF XA4RoA5NPC5eGNvrT1gzI rxcfktkG2gIfn+MjQgWWV bztO2K0WeCnl6 WPFrsWzdPL0ruLUgOXzlP e8gvArcjJujIS0gVHNnlu ycLELkbT0uNKTyyVRrbIl fQH5lIMOvotxo c003ZfGnNTK1PHQcxPNaX 5XmgB3yFzSfCMTqGKXnR7 AnnRIsDPufV457PBhcAiM 0MPBxhyCvJ5Pa BVKukFdtZeJ7x3A2Rn0LL Y3bkLU1O8MqBal2FZTvnF qgFD9vgOSsDCpgUy0ldTw kpKcrIB0bOKQc jupbZVTsoD5vTISkmJRgt TzlKS4vWFNfyyfvv030Yp OnJDV2ZMKfrNPtZ8TkdD1 yOiAjMDAwMDAw Z1KqbXSjFYdhG942VYjvE vX8TDQtbqTtT3MxBTYyjP nuMwZ7p1O7Lw5LzUAeFXM sML57YA11CD09 C9LfJryevANmnFT+PHRhY mxlIHdpZHRoPScxMDAlJy BumSgoXF5vFk4lSYNvNOC vbGxhcHNlOiBj m1jqIPWbHSirOO2ttWmdE 0VhpOP2IOAis9m1Qg26X3 6uW9NaxTG+MIOtvGE6gHI 2yK0eYzCoYeL3 EQcuV367XkVfdGVqMbigt 0vva6mraBa9JiFfRROxsj RuiMrtHAV2b4SxBh52U02 sIHdpZHRoPSIy YIHeXVCloZpyyf3neF2fW i8+EZEjsTW0mQT9fV2gRd SzXaG0MRtvB599ScRdlCE pWiphF01nR6Qa dXA+QTOiDjr5KITqxIycF C0dlAXjZUcxMz2wUCQ6Gk SqQxBeLFdwX6MgPNUvsfa pgiqgzEV3RZZl XCZwnC21Qo9rcFexIx8rL UNgOIJ0UDEomRTnX5TlyV 4dYqEaSFNpUPJaL7TwuEC lOQlzF548HIom TyI4CYKrzrPuP8VsKPAkx SlnQoD0q3A0He3UaKissL GcTT9aGgBtMGw7A0LwTee 8GZXdmMihNW3d oCGdDVajIt0onMqjmPswW M7cJFJagwwyl572OgSep9 tzHTHyfPYaVYkeVIB7G99 mb8E6DWNmPZHx LLW5gUY1kY1qqIztypppy GVmdDsgdmVydGljYWwtYW gfU632MLOzxVoqAfJOFtg 6F8LmDix6KSVi mVbhGW3cdNYpXGvmId8nk JedaMboBY9aJNKyindbq6 02OxIjj1gyPFBnvXHlJNv vIJI8S23jq4W6 QPGoHGWpBUH5mAI5fV1xr GlnbjogbGVmdDsgdmVydG pmZUpeSGugS676AKVjpRz eIh2ZMsy9W0Eu Gdt5IQDrxRjjGA5caXQeC HxoLi0mtSeluDmiVY2qJO Edamipb078RnPkd0ggXCH wcHQgVGltZXM7 U16go0A6ODUsIWOcUOK1i FA7fV8cnJwqqcwhpERlfS eidvTuuXwxYHgbAPieN53 6IHRvcDsnPlBh eWVyOjwvdGQ+DU75rt45V 3OgPycdHxz6GMOkVTK5fJ O5tP1gVCLwSCrrt3A5dUX 4W4DquqUjql4u b2xs (more content not included)... [facility] XR Ankle 3+ Views Lefton XR Ankle [...] Howell M.D. Transcribed by: JENN Technologist: STEVEN [facility] Consent for Treatmenton Consent for Treatment [id number] .00CD:127 [facility] Physician Orderon 04-03-2022 Physician Order [id number]# 1.00CD:127 Normal [facility] XR ANKLE LT MIN 3 Von 2021 XR ANKLE LT MIN 3 V EXAM: XR ANKLE LT OK N 3 V, XR FOOT LT MIN [...] authenticated by: MARQUIS HENSON Date: 2022-03-11 16:04 [facility] PAP ACOG PANEL 2: 21 to 29on 10-24-2021 . . Normal [facility] Comment on above: Performed By: #### [id number] #### [facility] [address] [address] [address] Aura Griffiths Age Gdln ACOG Testing - [facility] Comment on above: Performed By: #### [id number] #### [facility] [address] [address] [address] Aura Griffiths DIAGNOSIS: Comment [facility] Comment on above: Result Comment: NEGA TIVE FOR INTRAEPITHELIAL LESION OR MALIGNANCY. Performed By: #### [id number] #### [facility] [address] [address] [address] Aura Griffiths Methodology: Comment Normal [facility] Comment on above: Result Comment: This liquid based ThinPrep(R) pap test was screened with the use of an image guided system. Performed By: #### [id number] #### [facility] [address] [address] [address] Aura Griffiths Note: Comment Normal [facility] Comment on above: Result Comment: The Pap smear is a screening test designed to aid in the detection of premalignant and malignant conditions of the uterine cervix. It is not a diagnostic procedure and should not be used as the sole means of detecting cervical cancer. Both false-positive and false-negative reports do occur. . Performed By: #### [id number] #### [facility] [address] [address] [address] Aura Griffiths Performed by: Comment Normal [facility] Comment on above: Result Comment: Radha Trevino, Fairing Man (ASCP) Performed By: #### [id number] #### [facility] [address] [address] [address] Aura Griffiths Reflex Criteria: Comment Normal [facility] Comment on above: Result Comment: The HPV DNA reflex criteria were not met with this specimen result therefore, no HPV testing was performed. . Performed By: #### [id number] #### [facility] [address] [address] [address] Aura Griffiths Specimen adequacy: Comment Normal [facility] Comment on above: Result Comment: Sati sfactory for evaluation. Endocervical and/or squamous metaplastic cells (endocervical component) are present. Performed By: #### [id number] #### [facility] [address] [address] [address] Aura Griffiths Vital Signs Date Time Vital Sign Value Performing Clinician Faci lity 11-06-2024 14:02-0500 Body mass index (BMI) [Ratio] 45.68 kg/m2 Karla OSPINA Work Phone: [facility] 11-06-2024 14:02-0500 Body weight 120.71 kg Karla OSPINA Work Phone: [facility] 11-06-2024 14:02-0500 Diastolic blood pressure 80 mm[Hg] Karla Burns PA Work Phone: [facility] 11-06-2024 14:02-0500 Systolic blood pressure 126 mm[Hg] Karla Burns PA Work Phone: [facility] 10-23-2024 11:16-0500 Body mass index (BMI) [Ratio] 45.66 kg/m2 Karla Burns PA Work Phone: [facility] 10-23-2024 11:16-0500 Body weight 120.66 kg Karla OSPINA Work Phone: [facility] 10-23-2024 11:16-0500 Diastolic blood pressure 80 mm[Hg] Karla OSPINA Work Phone: [facility] 10-23-2024 11:16-0500 Systolic blood pressure 124 mm[Hg] Karla OSPINA Work Phone: [facility] 10-09-2024 10:43-0500 Body mass index (BMI) [Ratio] 46.17 kg/m2 Carrie Ora DO Work Phone: [facility] 10-09-2024 10:43-0500 Body weight 122.02 kg Carrie Ora DO Work Phone: [facility] 10-09-2024 10:43-0500 Diastolic blood pressure 70 mm[Hg] Carrie Ora DO Work Phone: [facility] 10-09-2024 10:43-0500 Systolic blood pressure 120 mm[Hg] Carrie Ora DO Work Phone: [facility] 09-25-2024 08:58-0500 Body mass index (BMI) [Ratio] 45.49 kg/m2 Carrie Ora DO Work Phone: [facility] 09-25-2024 08:58-0500 Body weight 120.2 kg Carrie Ora DO Work Phone: [facility] 09-25-2024 08:58-0500 Diastolic blood pressure 72 mm[Hg] Carrie Ora DO Work Phone: [facility] 09-25-2024 08:58-0500 Systolic blood pressure 122 mm[Hg] Carrie Ora DO Work Phone: [facility] 2024 09:48-0500 Body mass index (BMI) [Ratio] 44.97 kg/m2 Karla OSPINA Work Phone: [facility] 2024 09:48-0500 Body weight 118.84 kg Karla OSPINA Work Phone: [facility] 2024 09:48-0500 Diastolic blood pressure 70 mm[Hg] Karla OSPINA Work Phone: [facility] 2024 09:48-0500 Systolic blood pressure 120 mm[Hg] Karla OSPINA Work Phone: [facility] 08-14-2024 11:20-0500 Body mass index (BMI) [Ratio] 44.53 kg/m2 Carrie Ora DO Work Phone: [facility] 08-14-2024 11:20-0500 Body weight 117.66 kg Carrie Ora DO Work Phone: [facility] 08-14-2024 11:20-0500 Diastolic blood pressure 82 mm[Hg] Carrie Ora DO Work Phone: [facility] 08-14-2024 11:20-0500 Systolic blood pressure 124 mm[Hg] Carrie Ora DO Work Phone: [facility] 07-17-2024 10:48-0500 Body mass index (BMI) [Ratio] 45.28 kg/m2 Carrie Ora DO Work Phone: [facility] 07-17-2024 10:48-0500 Body weight 119.66 kg Carrie Ora DO Work Phone: [facility] 07-17-2024 10:48-0500 Diastolic blood pressure 70 mm[Hg] Carrie Ora DO Work Phone: [facility] 07-17-2024 10:48-0500 Systolic blood pressure 120 mm[Hg] Carrie Roa DO Work Phone: [facility] 06-17-2024 10:48-0400 Body mass index (BMI) [Ratio] 44.99 kg/m2 Carrie Ora DO Work Phone: [facility] 06-17-2024 10:48-0400 Body weight 118.9 kg Carrie Ora DO Work Phone: [facility] 06-17-2024 10:48-0400 Diastolic blood pressure 70 mm[Hg] Carrie Roa DO Work Phone: [facility] 06-17-2024 10:48-0400 Systolic blood pressure 120 mm[Hg] Carrie Ora DO Work Phone: [facility] 05-16-2024 09:16-0400 Body mass index (BMI) [Ratio] 46 kg/m2 [facility] 05-16-2024 09:16-0400 Body weight 121.56 kg [facility] 05-16-2024 09:16-0400 Diastolic blood pressure 70 mm[Hg] [facility] Nurse [facility] 05-16-2024 09:16-0400 Systolic blood pressure 120 mm[Hg] [facility] Nurse [facility] Healthcare Encounters Encounter Date Encounter Type Care Provider Facility Start: 11-13-2024 End: 11-13-2024 Bamboo flowsheet Karla OSPINA Work Phone: [facility] Start: 11-13-2024 End: 11-13-2024 Bamboo flowsheet Karla OSPINA Work Phone: [facility] Start: 11-06-2024 End: 11-06-2024 Bamboo flowsheet Karla OSPINA Work Phone: [facility] Start: 11-06-2024 End: 11-06-2024 Bamboo flowsheet Karla OSPINA Work Phone: [facility] Start: 11-06-2024 End: 11-06-2024 flow sheet Karla OSPINA Work Phone: [facility] Comment on above: 33 weeks gestation o f ; Third trimester Start: 11-06-2024 End: 11-06-2024 ambulatory KARLA BURNS Not Available Start: 10-31-2024 End: 10-31-2024 Clinisync Result Encounter Carrie Ora DO Work Phone: [facility] External Department Unsolicited Start: 10-31-2024 End: 10-31-2024 [...] 2024 Bamboo flowsheet Karla OSPINA Work Phone: [facility] Start: 2024 End: 2024 Bamboo flowsheet Karla OSPINA Work Phone: [facility] Start: 2024 End: 2024 flow sheet Karla OSPINA Work Phone: [facility] Comment on above: 25 weeks gestation o f ; Second trimester ; UTI symptoms Start: 2024 End: 2024 ambulatory KARLA BURNS Not Available Start: 08-14-2024 End: 08-14-2024 Bamboo flowsheet Carrie Ora DO Work Phone: [facility] Start: 08-14-2024 End: 08-14-2024 Bamboo [...] micrscp Karla OSPINA Work Phone: Start: 10-31-2024 OB BPP W NON-STRESS Carrie Ora DO [...] Treatment Date Care Activity Detail Author Start: 11-26-2024 End: 11-26-2024 Patient encounter procedure 11/26/2024 2:40 PM EDT Routine [facility] [address] [place] [address] Carrie Payan, DO [address] [place] [address] [facility] Start: 11-24-2024 End: 11-24-2024 Patient encounter procedure 11/24/2024 9:30 AM EDT Routine [facility] [address] [place] [address] Carrie Payan, DO [address] [place] [address] [facility] Start: 11-13-2024 End: 11-13-2024 Patient encounter procedure 11/13/2024 10:10 AM EDT Office Visit [facility] [address] [place] [id number] Karla Burns PA [address] [place] [address] Arrived [facility] Comment on above: Arrived Start: 11-06-2024 End: 11-06-2024 Patient encounter procedure [...] unspecified fetus Expected: 10/09/2024 (Approximate), Expires: 10/09/2025 [facility] Work Phone: Comment on above: Expected: 10/09/2024 [...] AM EST Routine [facility] [address] [place] [phone] Carrie Payan DO [address] [place] [address] [facility] Start: 10-09-2024 End: 10-09-2024 Professional / ancillary services management 10/09/2024 10:00 AM EST Ancillary Procedure [facility] [address] [place] [id number] [facility] Start: 09-25-2024 End: 09-25-2025 Measurement of glucose 3 hours after glucose challenge for glucose tolerance test Glucose tolerance, 3 hours Lab Routine Elevated glucose tolerance test Expected: 09/25/2024 (Approximate), Expires: 09/25/2025 [facility] Healthcare Comment on above: Expected: 09/25/2024 (Approximate), Expires: 09/25/2025 Start: 09-25-2024 End: 09-25-2025 US for US OB follow up transabdominal approach Imaging Routine Second trimester 27 weeks gestation of Elevated glucose tolerance test Expected: 09/25/2024, Expires: 09/25/2025 [facility] Work Phone: Comment on above: Expected: [...] EST Ancillary Procedure [facility] [address] [place] [id number] [facility] Start: 07-17-2024 End: 09-16-2024 [...] AM EST Routine [facility] [address] [place] [phone] Carrie Payan, DO [address] [place] [address] [facility] Start: 06-17-2024 End: 06-17-2024 [...] Missed menses Expected: 05/16/2024 (Approximate), Expires: 05/16/2025 [facility] Healthcare Work Phone: Comment on above: Expected: 05/16/2024 (Approximate), Expires: 05/16/2025 Start: 05-16-2024 End: 05-16-2025 Drugs of abuse panel - Urine by Screen method Rapid drug screen, urine Lab Routine Encounter for supervision of normal first in first trimester , unspecified gestational age Expected: 05/16/2024 (Approximate), Expires: 05/16/2025 [facility] Healthcare Comment on above: Expected: 05/16/2024 (Approximate), Expires: 05/16/2025 Start: 05-16-2024 End: 05-16-2025 US Pelvis transvaginal US OB transvaginal Imaging Routine Missed menses Expected: 05/16/2024 (Approximate), Expires: 05/16/2025 [facility] Healthcare Comment on above: Expected: 05/16/2024 (Approximate), Expires: 05/16/2025 Bacteria identified in Urine by Culture Urine culture Microbiology Routine Missed menses Ordered: 05/16/2024 [facility] Comment on above: Ordered: 05/16/2024 Bacteria identified in Urine by Culture Urine culture Microbiology Routine UTI symptoms Ordered: 2024 [facility] Healthcare Work Phone: Comment on above: Ordered: 2024 CBC W Auto Different ial panel - Blood CBC and differential Lab Routine Missed menses Ordered: 05/16/2024 [facility] Healthcare Comment on above: Ordered: 05/16/2024 CHLAMYDIA TRACHOMATI S (GENITO/STI) CHLAMYDIA TRACHOMATIS (GENITO/STI) Lab Routine Exposure to STD Ordered: 07/17/2024 [facility] Comment on above: Ordered: 07/17/2024 Hemoglobin A1c/Hemoglobin.total in Blood Hemoglobin A1c Lab Routine Missed menses Ordered: 05/16/2024 [facility] Healthcare Comment on above: Ordered: 05/16/2024 Hepatitis B virus surface Ag [Presence] in Serum or Plasma by Immunoassay Hepatitis B surface antigen Lab Routine Missed menses Ordered: 05/16/2024 [facility] Comment on above: Ordered: 05/16/2024 Hepatitis C virus Ab [Presence] in Serum or Plasma by Immunoassay Hepatitis C antibody Lab Routine Missed menses Ordered: 05/16/2024 [facility] Comment on above: Ordered: 05/16/2024 HIV-1/HIV-2 antigen/antibody combination immunoassay HIV-1 and HIV-2 antibodies Lab Routine Missed menses Ordered: 05/16/2024 [facility] Comment on above: Ordered: 05/16/2024 Neisseria gonorrhoea e DNA [Presence] in Unspecified specimen by XIOMARA with probe detection Neisseria gonorrhea DNA probe, direct Lab Routine Exposure to STD Ordered: 07/17/2024 [facility] Comment on above: Ordered: 07/17/2024 Reagin Ab [Presence] in Serum by RPR RPR Lab Routine Missed menses Ordered: 05/16/2024 [facility] Comment on above: Ordered: 05/16/2024 Rubella antibody, IgG Rubella an tibody, IgG Lab Routine Missed menses Ordered: 05/16/2024 [facility] Comment on above: Ordered: 05/16/2024 SURESWAB(R) ADVANCED VAGINITIS PLUS, TMA SURESWAB(R) ADVANCED VAGINITIS PLUS, TMA Pathology and Cytology Routine Vaginal discharge Ordered: 07/17/2024 [facility] Work Phone: Comment on above: Ordered: 07/17/2024 Payers Date Payer Category Payer Unknown [id number] 2023 [facility] [id number] 2023 Unknown BCBS BCBS [id number] [id number] 2023-Present [phone] [address] [place] [address] [id number] 2023 Unknown [id number] 1997 Unknown [id number] [id number] 93 1997 Unknown [id number] 2.16.840.1.606925.3.579.2.5 93 1997 Unknown [id number] [id number] 259 1997 Unknown [id number] 2.16.840.1.277540.3.579.2.1 259 1997 Unknown [id number] 2.16.840.1.488843.3.579.2.1 259 1997 Unknown [id number] [id number] 259 1997 Unknown [id number] 2.16.840.1.851279.3.579.2.1 259 1997 Unknown [id number] 2.16.840.1.258296.3.579.2.1 259 1997 Unknown [id number] 2.16.840.1.275864.3.579.2.1 259 1997 Unknown [id number] 2.16.840.1.582520.3.579.2.1 259 1997 Unknown [id number] 2.16.840.1.262727.3.579.2.1 259 1997 Unknown [id number] 2.16.840.1.582360.3.579.2.1 259 1997 Unknown [id number] [id number] 259 1959 Private Health Insurance [id number] 1959 Unknown [id number] Social History Date Type Detail Facility Start: 07-31-2023 Tobacco smoking stat [facility] Never smoked tobacco [facility] Start: 07-31-2023 Tobacco use and exposure Smokeless t obacco non-user [facility] Start: 05-16-2024 End: 11-06-2024 Alcoholic beverage intake Lifetime non-drinker (finding) [facility] Start: 07-31-2023 End: 04-07-2024 History of Social function [facility] Start: 07-31-2023 End: 04-07-2024 Tobacco use panel [facility] Start: 03-28-2024 [facility] Tyrel chevy Start: 1995 Sex assigned at Female [facility] Start: 01-23-2023 Gender identity Identifies as female gender (finding) [facility] Clinical Notes 05-16-2024 to 11-06-2024 BHAVESH Javier - 11/06/2024 1:50 PM BHAVESH Mares - 10/23/2024 10:50 AM ESTSusan Spitler, HYPERTRICHOLOGIST - 10/09/2024 10:40 AM ESTSusan Spitler, HYPERTRICHOLOGIST - 09/25/2024 9:00 AM EST Note Date [...] Morbid obesity with BMI of 40.0-44.9, adult ([facility]) Negative test On Depo-Provera for contraception HISTORY PAST MEDICAL HISTORY SOCIAL HISTORY Past Medical History: Diagnosis Date Depression screening Encounter for gynecological examination (general) (routine) without abnormal findings Family planning Insulin resistance Morbid obesity with BMI of 40.0-44.9, adult ([facility]) Negative test On Depo-Provera for contraception [...] nursing note reviewed. Exam conducted with a seasonal retail merchandiser present. Vitals: Estimated body mass index is [...] of: BHAVESH Javier documented in this encounter [facility] 10-23-2024 History of Presen t illness [...] with BMI of 40.0-44.9, adult ([facility]) Negative test On Depo-Provera for contraception HISTORY PAST MEDICAL HISTORY SOCIAL HISTORY Past Medical History: Diagnosis Date Depression screening Encounter for gynecological examination (general) (routine) without abnormal findings Family planning Insulin resistance Morbid obesity with BMI of 40.0-44.9, adult ([facility]) Negative test On Depo-Provera for contraception [...] of: BHAVESH Javier documented in this encounter [facility] 10-09-2024 History of Presen t [...] Morbid obesity with BMI of 40.0-44.9, adult ([facility]) Negative test On Depo-Provera for contraception HISTORY PAST MEDICAL HISTORY SOCIAL HISTORY Past Medical History: Diagnosis Date Depression screening Encounter for gynecological examination (general) (routine) without abnormal findings Family planning Insulin resistance Morbid obesity with BMI of 40.0-44.9, adult ([facility]) Negative test On Depo-Provera for contraception [...] nursing note reviewed. Exam conducted with a seasonal retail merchandiser present. Vitals: Estimated body mass index is [...] Carrie Payan DO documented in this encounter [facility] 09-25-2024 History of Presen t [...] with BMI of 40.0-44.9, adult ([facility]) Negative test On Depo-Provera for contraception HISTORY PAST MEDICAL HISTORY SOCIAL HISTORY Past Medical History: Diagnosis Date Depression screening Encounter for gynecological examination (general) (routine) without abnormal findings Family planning Insulin resistance Morbid obesity with BMI of 40.0-44.9, adult ([facility]) Negative test On Depo-Provera for contraception [...] nursing note reviewed. Exam conducted with a seasonal retail merchandiser present. Vitals: Estimated body mass index is [...] Carrie Payan DO documented in this encounter [facility] 2024 History of Presen t [...] Morbid obesity with BMI of 40.0-44.9, adult ([facility]) Negative test On Depo-Provera for contraception HISTORY PAST MEDICAL HISTORY SOCIAL HISTORY Past Medical History: Diagnosis Date Depression screening Encounter for gynecological examination (general) (routine) without abnormal findings Family planning Insulin resistance Morbid obesity with BMI of 40.0-44.9, adult ([facility]) Negative test On Depo-Provera for contraception [...] nursing note reviewed. Exam conducted with a seasonal retail merchandiser present. Vitals: Estimated body mass index is [...] of: BHAVESH Javier documented in this encounter [facility] 08-14-2024 History of Presen t [...] with BMI of 40.0-44.9, adult ([facility]) Negative test On Depo-Provera for contraception HISTORY PAST MEDICAL HISTORY SOCIAL HISTORY Past Medical History: Diagnosis Date Depression screening Encounter for gynecological examination (general) (routine) without abnormal findings Family planning Insulin resistance Morbid obesity with BMI of 40.0-44.9, adult ([facility]) Negative test On Depo-Provera for contraception [...] nursing note reviewed. Exam conducted with a seasonal retail merchandiser present. Vitals: Estimated body mass index is [...] Carrie Payan DO documented in this encounter [facility] 07-17-2024 History of Presen t [...] Morbid obesity with BMI of 40.0-44.9, adult ([facility]) Negative test On Depo-Provera for contraception HISTORY PAST MEDICAL HISTORY SOCIAL HISTORY Past Medical History: Diagnosis Date Depression screening Encounter for gynecological examination (general) (routine) without abnormal findings Family planning Insulin resistance Morbid obesity with BMI of 40.0-44.9, adult ([facility]) Negative test On Depo-Provera for contraception [...] nursing note reviewed. Exam conducted with a seasonal retail merchandiser present. Vitals: Estimated body mass index is [...] Carrie Payan DO documented in this encounter [facility] 06-17-2024 History of Presen t [...] Morbid obesity with BMI of 40.0-44.9, adult ([facility]) Negative test On Depo-Provera for contraception HISTORY PAST MEDICAL HISTORY SOCIAL HISTORY Past Medical History: Diagnosis Date Depression screening Encounter for gynecological examination (general) (routine) without abnormal findings Family planning Insulin resistance Morbid obesity with BMI of 40.0-44.9, adult ([facility]) Negative test On Depo-Provera for contraception [...] nursing note reviewed. Exam conducted with a seasonal retail merchandiser present. Vitals: Estimated body mass index is [...] or undercooked meat, and stay away from [facility]. Patient has been consulted regarding any [...] Karla Burns PA-C documented in this encounter [facility] 05-16-2024 History of Presen t [...] Morbid obesity with BMI of 40.0-44.9, adult ([facility]) Negative test On Depo-Provera for contraception [...] or undercooked meat, and stay away from [facility]. Patient has also been advised to [...] Shannan Peña LPN documented in this encounter [facility] Evaluation note Diagnosis 13 weeks gestation [...] content) DATE CREATED AUTHOR 04/05/2022 Crystal Rodriguez [facility] DATE CREATED AUTHOR AUTHOR'S ORGANIZ ATION 04/08/2022 [facility] DATE CREATED AUTHOR AUTHOR'S ORGANIZ ATION 11/08/2024 [facility] EPIC Care Teams (unrecognized sec tion and content) Clay Modeler Relationship Specialty Start Date End Date Karla Oretga MD [address] [place] [address] PCP - General Family Medicine 01/24/23 Clay Modeler Relationship Specialty Start Date End Date Karla Ortega MD [address] [place] [address] PCP - General Family Medicine 01/24/23 Clay Modeler Relationship Specialty Start Date End Date Karla Ortega MD [address] [place] [address] PCP - General Family Medicine 01/24/23 Clay Modeler Relationship Specialty Start Date End Date Karla Ortega MD [address] [place] [address] PCP - General Family Medicine 01/24/23 Clay Modeler Relationship Specialty Start Date End Date Karla Ortega MD [address] [place] [address] PCP - General Family Medicine 01/24/23 Clay Modeler Relationship Specialty Start Date End Date Karla Ortega MD [address] [place] [address] PCP - General Family Medicine 01/24/23 Clay Modeler Relationship Specialty Start Date End Date Karla Ortega MD [address] [place] [address] PCP - General Family Medicine 01/24/23 Clay Modeler Relationship Specialty Start Date End Date Karla Ortega MD [address] [place] [address] PCP - General [facility] Medicine 01/24/23 Clay Modeler Relationship Specialty Start Date End Date Karla Ortega MD [address] [place] [address] PCP - General Family Medicine 01/24/23 Clay Modeler Relationship Specialty Start Date End Date Karla Ortega MD [address] [place] [address] PCP - General Family Medicine 01/24/23 Clay Modeler Relationship Specialty Start Date End Date Karla Ortega MD [address] [place] [address] PCP - General Family Medicine 01/24/23 [...] BE BASED ON THE PRIMARY CLINICAL RECORDS. [email or web address] provides no warranty or guarantee of the accuracy or completeness of information in this document.
[2024-11-13 11:42] VITALS: BP 109/75; PULSE 103
== END 2024-11-13 12:11 | disposition home or self-care (01) ==
LOC: US 11:08 → FBC 11:10
PROVIDERS: Visit Provider Obstetrics & Gynecology
DX: O36.63X0 Maternal care for excessive fetal growth, third trimester, not applicable or unspecified (principal); Z3A.34 34 weeks gestation of pregnancy
CPT/HCPCS: 76818

== ENCOUNTER 2024-11-17 18:59 | Outpatient (OUT) | payer BC, SELFPAY ==
--- OUTSIDE RECORDS SUMMARY | 2024-11-17 19:02 | XMS_ITS | CCD ---
Author Organization [facility] Care Team Providers Care Processor Helper Name Role Phone DR CARRIE PAYAN Primary Care Unavailable ANGÉLICA NARAYANAN Attending Unavailable ANGÉLICA NARAYANAN Consulting Unavailable ANGÉLICA NARAYANAN Admitting Unavailable MARQUIS HENSON Consulting Unavailable ORA, DR BUTLER Consulting Unavailable ORA, DR BUTLER Primary Care Unavailable DR CARRIE PAYAN Admitting Unavailable ORA, DR BUTLER Attending Unavailable Karla Ortega MD Primary Care Provider [phone] CARRIE PAYAN Attending Unavailable ORA, CARRIE Attending Unavailable GRANT, KARLA Attending Unavailable GRANT, KARLA Attending Unavailable GRANTKARLA Attending Unavailable GRANTKARLA ANDESR Attending Unavailable ORA, CARRIE Attending Unavailable ORA, CARRIE Attending Unavailable CARRIE PAYAN Attending Unavailable KARLA BURNS Attending Unavailable Medications Current Medications Medication Drug Class(es) Dates Sig (Normalized) Sig (Original) aspirin 81 mg delayed release oral tablet (18 sources) Platelet Aggregation Inhibitor, Nonsteroidal Anti-inflammatory Drug [...] and 5 mg before bedtime. 2024 Discontinued pramoxine hydrochloride 10 mg/ml rectal foam (3 sources) Start: 11-13-2024 End: 11-23-2024 pramoxine (Proctofoam) 1 % foam Indications: External hemorrhoid Insert into the rectum every 2 (two) hours if needed for hemorrhoids for up to 10 days 15 g 11/13/2024 11/23/2024 Active Completed/Discontinued Medications Medication Drug Class(es) Dates [...] signs involving the genitourinary system] 2024 Episodic Hemorrhoids (2 sources) External hemorrhoids; Translations: [Residual hemorrhoidal skin tags] 11-13-2024 Episodic Immunizations and screening for infectious disease [...] noninflammatory disorders of vagina] 07-17-2024 Episodic Other female genital disorders (2 sources) Vaginal irritation; Translations: [Other specified noninflammatory disorders of vagina] 11-13-2024 Episodic Other and delivery including normal (20 sources) Second trimester ; Translations: [Encounter for [...] [33 weeks gestation of ] 11-06-2024 Episodic Residual codes; unclassified (2 sources) Gestation period, 34 weeks; Translations: [34 weeks gestation of ] 11-13-2024 Episodic Sprains and strains (1 source) Sprain of unspecified ligament of left ankle, initial encounter; Translations: [SPRAIN UNS LIGAMENT LT ANKLE INIT] Onset: 03-13-2022 Episodic Results Test Name Value Interpretation Reference Range Facility US OB BPP W NON-STRESS on 11-13-2024 [place] [address] Ultrasound Report Signed Patient: KAREEN FORMAN MR#: [id number] : 1995 Acct:[id number] Age/Sex: 29 / F ADM Date: 11/13/24 Loc: [facility] 250-[address]: Carrie Payan D.O. Ordering Physician: Carrie Payan D.O. Date of Service: 11/13/24 Procedure(s): US OB BPP w non-stress Accession Number(s): [id number] cc: KARLA ORTEGA; Carrie Payna D.O. [place] [address] Patient Name: KAREEN FORMAN MRN: [id number] date: 1995 Sex: F Assigned Patient Location: Current Patient Location: US Accession/Order Number: [id number] Exam Date: 11/13/2024 11:58 Report Date: 11/13/2024 11:59 At the request of: CARRIE PAYAN DO Procedure: US OB BPP w non-stress BIOPHYSICAL PROFILE: CLINICAL INFORMATION: Excessive growth COMPARISON: 11/06/2024 There is a single live intrauterine gestation in cephalic presentation. The reported gestational age is 34 weeks 6 days. The heart rate [id number] beats per minute. FINDINGS: TONE: 1 or [...] greater than 2 cm [Y] 2/2 JENS: 15.8 cm. This is in normal range. Total score: 8/8 US/US OB BPP w non-stress IMPRESSION: NORMAL BIOPHYSICAL PROFILE Impression dictated by: Bita Mcdonough M.D.11/13/2024 11:59 AM Dictation Location: [place] [address] Electronically authenticated by: [id number] Y Date: 11/13/2024 11:59 Dictated By: Bita Mcdonough M.D. Signed By: 11/13/24 1202 DD/ 1669 TD/TT: Enterer: [facility] Radiology, Radiologist, - 11/13/2024 [place] [address] Ultrasound Report Signed Patient: KAREEN FORMAN MR#: [id number] : 1995 Acct:[id number] Age/Sex: 29 / F ADM Date: 11/13/24 Loc: [facility] [address]: Carrie Payan D.O. Ordering Physician: Carrie Payan D.O. Date of Service: 11/13/24 Procedure(s): US OB BPP w non-stress Accession Number(s): [id number] cc: KARLA ORTEGA; Carrie Payan D.O. The [place] [address] Patient Name: KAREEN FORMAN MRN: [facility]:[id number] date: 1995 Sex: F Assigned Patient Location: Current Patient Location: Accession/Order Number: [id number] Exam Date: 11/13/2024 11:58 Report Date: 11/13/2024 11:59 At the request of: CARRIE PAYAN DO Procedure: US OB BPP w non-stress BIOPHYSICAL PROFILE: CLINICAL INFORMATION: Excessive growth COMPARISON: 11/06/2024 There is a single live intrauterine gestation in cephalic presentation. The reported gestational age is 34 weeks 6 days. The heart rate [id number] beats per minute. FINDINGS: TONE: 1 or [...] amniotic fluid greater than 2 cm [Y] 2/ JENS: 15.8 cm. This is in normal range. Total score: 04/10 US/US OB BPP w non-stress IMPRESSION: NORMAL BIOPHYSICAL PROFILE Impression dictated by: Bita Mcdonough M.D.11/13/2024 11:59 AM Dictation Location: [place] [address] Electronically authenticated by: [id number] Y Date: 11/13/2024 11:59 Dictated By: Bita Mcdonough M.D. Signed By: 11/13/24 1202 DD/ 1159 TD/TT: Enterer: [facility] Radiology Study observation (narrative) [facility] US OB BPP W NON-STRESS Ordered By: Radiologist Radiology on 11-13-2024 [facility] [employer] Work Phone: Urinalysis macro (dipstick) panel (U)on 11-13-2024 Bilirubin, UA Negative Negative - 4(70) +++ mg/dL [facility] Blood, UA Negative Negative - 50 Roberto/mcL [facility] Clarity, UA Clear [facility] [employer] re Color, UA Yellow [facility] [employer] Glucose, UA Negative Negative - 1999(110) ++++ mg/dL [facility] Interpretation and review of laboratory results Abnormal [facility] Ketones, UA Negative Negative - 160(16) ++++ mg/dL [facility] Leukocytes, UA Positive Negative - 500+++ Christian/mcL [facility] Comment on above: small Nitrite, UA Negative Negative - Positive [facility] pH, UA 6.5 5 - 9 [facility] [employer] Protein, UA Negative Negative - 1999(20) ++++ mg/dL [facility] Spec Grav, UA 1.02 1 - 1.03 [facility] Urobilinogen, UA 0.2 0.2 - 12 mg/dL [facility] Urinalysis macro (dipstick) panel (U)on 11-06-2024 Bilirubin, UA Negative Negative - 4(70) +++ mg/dL [facility] Blood, UA Negative Negative - 50 Roberto/mcL [facility] Clarity, UA Clear [facility] re Color, UA Yellow [facility] Glucose, UA Negative Negative - 1999(110) ++++ mg/dL [facility] Interpretation and review of laboratory results Abnormal [facility] Ketones, UA Negative Negative - 160(16) ++++ mg/dL [facility] Leukocytes, UA Trace Negative - 500+++ Christian/mcL [facility] Nitrite, UA Negative Negative - Positive [facility] pH, UA 6.5 5 - 9 [facility] Protein, UA Negative Negative - 1999(20) ++++ mg/dL [facility] Spec Grav, UA 1.025 1 - 1.03 [facility] Urobilinogen, UA 2.0 0.2 - 12 mg/dL [facility] US OB BPP W NON-STRESS on 10-31-2024 [place] [address] Ultrasound Report Signed Patient: KAREEN FORMAN MR#: [id number] : 1995 Acct:[id number] Age/Sex: 29 / F ADM Date: 10/30/24 Loc: US Attending Dr: Carrie Payan D.O. Ordering Physician: Carrie Payan D.O. Date of Service: 10/30/24 Procedure(s): US OB BPP w non-stress Accession Number(s): [id number] cc: KARLA ORTEGA; Carrie Payan D.O. The [place] [address] Patient Name: KAREEN FORMAN MRN: [facility]:[id number] date: 1995 Sex: F Assigned Patient Location: [facility] Current Patient Location: Accession/Order Number: [id number] Exam Date: 10/31/2024 10:24 Report Date: 10/31/2024 [...] This is in normal range. Total score: 8/ US/US OB BPP w non-stress IMPRESSION: NORMAL BIOPHYSICAL PROFILE Impression dictated by: Bita Mcdonough M.D.10/31/2024 10:25 AM Dictation Location: [place] [address] Electronically authenticated by: [id number] Y Date: 10/31/2024 10:25 Dictated By: Bita Mcdonough M.D. Signed By: 10/31/24 1027 DD/ 1025 TD/TT: Enterer: [facility] Radiology, Radiologist, MD - 10/31/2024 [place] [address] Ultrasound Report Signed Patient: KAREEN FORMAN MR#: [id number] : 1995 Acct:[id number] Age/Sex: 29 / F ADM Date: 10/30/24 Loc: Attending Dr: Carrie Payan D.O. Ordering Physician: Carrie Payan D.O. Date of Service: 10/30/24 Procedure(s): US OB BPP w non-stress Accession Number(s): [id number] cc: DANIEL ORTEGA Corey D.O. The [address] [address] Patient Name: KAREEN FORMAN MRN: [facility]:[id number] date: 1995 Sex: F Assigned Patient Location: [facility] Current Patient Location: Accession/Order Number: [id number] Exam Date: 10/31/2024 10:24 Report Date: 10/31/2024 10:25 At the request of: CARRIE PAYAN DO Procedure: US OB BPP w non-stress BIOPHYSICAL PROFILE: CLINICAL INFORMATION: EXCESSIVE GROWTH AFFECTING O36.60X0 COMPARISON: 10/23/2024 There is a single live intrauterine gestation in cephalic presentation. Reported age is 32 weeks 6 days. The heart rate [id number] ( beats per minute. FINDINGS: TONE: 1 [...] Bita Mcdonough M.D.10/31/2024 10:25 AM Dictation Location: [place] Electronically authenticated by: [id number] Y Date: 10/31/2024 10:25 Dictated By: Bita Mcdonough M.D. Signed By: 10/31/24 1027 DD/ 1025 TD/TT: Enterer: [facility] Radiology Study observation (narrative) [facility] US OB BPP W NON-STRESS Ordered By: Radiologist Radiology on 10-31-2024 [facility] [employer] Work Phone: US OB BPP W NON-STRESS on 10-23-2024 [place] [address] Ultrasound Report Signed Patient: KAREEN FORMAN MR#: [id number] : 1995 Acct:[id number] Age/Sex: 29 / F ADM Date: 10/23/24 Loc: US Attending Dr: Carrie Payan D.O. Ordering Physician: Carrie Payan D.O. Date of Service: 10/23/24 Procedure(s): US OB BPP w non-stress Accession Number(s): [id number] cc: KARLA ORTEGA; Carrie Payan D.O. The [address] [id number] Patient Name: KAREEN FORMAN MRN: [facility]:[id number] date: 1995 Sex: F Assigned Patient Location: [facility] Current Patient Location: US Accession/Order Number: [id number] Exam Date: 10/23/2024 13:18 Report Date: 10/23/2024 22:17 At the request of: CARRIE PAYAN DO Procedure: US OB BPP w non-stress BPP. Reason for exam: Excessive growth. COMPARISON: BPP 10/16/2024. TECHNIQUE: Transabdominal imaging of the gravid uterus was obtained. FINDINGS: [employer] reports the BPP is 8 out of 8. JENS measures 13.1 cm. heart rate 161 bpm. US/US OB BPP w non-stress Impression: BPP 8 out of 8. Correlation with NST is recommended. Impression dictated by: Claudio Schuster Jr., D.O.10/23/2024 10:17 PM Dictation Location: [place] [address] Electronically authenticated by: [id number] Y Date: 10/23/2024 22:17 Dictated By: Claudio Schuster M.D. Signed By: 10/23/242218 DD/ 16 TD/TT: Enterer: [facility] Radiology, Radiologist, - 10/23/2024 [place] [address] Ultrasound Report Signed Patient: KAREEN FORMAN MR#: [id number] : 1995 Acct:[id number] Age/Sex: 29 / F ADM Date: 10/23/24 Loc: US Attending Dr: Carrie Payan D.O. Ordering Physician: Carrie Payan D.O. Date of Service: 10/23/24 Procedure(s): US OB BPP w non-stress Accession Number(s): [id number] cc: KARLA ORTEGA; Carrie Payan D.O. The [place] [address] Patient Name: KAREEN OFRMAN MRN: [facility]:[id number] date: 1995 Sex: F Assigned Patient Location: [facility] Current Patient Location: Accession/Order Number: [id number] Exam Date: 10/23/2024 13:18 Report Date: 10/23/2024 22:17 At the request of: CARRIE PAYAN DO Procedure: US OB BPP w non-stress BPP. Reason for exam: Excessive growth. COMPARISON: BPP 10/16/2024. TECHNIQUE: Transabdominal imaging of the gravid uterus was obtained. FINDINGS: [employer] reports the BPP is 8 out of 8. JENS measures 13.1 cm. heart rate 161 bpm. US/US OB BPP w non-stress Impression: BPP 8 out of 8. Correlation with NST is recommended. Impression dictated by: Claudio Schuster Jr., D.O.10/23/2024 10:17 PM Dictation Location: [place] [address] Electronically authenticated by: [id number] Y Date: 10/23/2024 22:17 Dictated By: Claudio Schuster M.D. Signed By: 10/23/242218 DD/ 16 TD/TT: Enterer: [facility] Radiology Study observation (narrative) [facility] US OB BPP W NON-STRESS Ordered By: Radiologist Radiology on 10-23-2024 [facility] [employer] Work Phone: Urinalysis macro (dipstick) panel (U)on 10-23-2024 Bilirubin, UA Negative Negative - 4(70) +++ mg/dL [facility] Blood, UA Negative Negative - 50 Roberto/mcL [facility] Clarity, UA Clear [facility] Color, UA Yellow [facility] Glucose, UA Negative Negative - 2000(110) ++++ mg/dL [facility] Interpretation and review of laboratory results Abnormal [facility] Ketones, UA Negative Negative - 160(16) ++++ mg/dL [facility] Leukocytes, UA Trace Negative - 500+++ Christian/mcL [facility] Nitrite, UA Negative Negative - Positive [facility] pH, UA 6.5 5 - 9 [facility] Protein, UA Negative Negative - 1999(20) ++++ mg/dL [facility] Spec Grav, UA 1.025 1 - 1.03 [facility] Urobilinogen, UA 1.0 0.2 - 12 mg/dL [facility] US OB BPP W NON-STRESS on 10-16-2024 [place] [address] Ultrasound Report Signed Patient: KAREEN FORMAN MR#: [id number] : 1995 Acct:[id number] Age/Sex: 29 / F ADM Date: 10/16/24 Loc: US Attending Dr: Carrie Payan D.O. Ordering Physician: Carrie Payan D.O. Date of Service: 10/16/24 Procedure(s): US OB BPP w non-stress Accession Number(s): [id number] cc: KARLA ORTEGA; Carrie Payan D.O. [place] [address] Patient Name: KAREEN FORMAN MRN: [facility]:[id number] date: 1995 Sex: F Assigned Patient Location: US Current Patient Location: Accession/Order Number: [id number] Exam Date: 10/16/2024 13:57 Report Date: 10/16/2024 [...] Signed By: 10/16/24 1544 DD/ 154 TD/TT: Enterer: [facility] Radiology, Radiologist, - 10/16/2024 [place] [address] Ultrasound Report Signed Patient: KAREEN FORMAN MR#: [id number] : 1995 Acct:[id number] Age/Sex: 29 / F ADM Date: 10/16/24 Loc: US Attending Dr: Carrie Payan D.O. Ordering Physician: Carrie Payan D.O. Date of Service: 10/16/24 Procedure(s): US OB BPP w non-stress Accession Number(s): [id number] cc: KARLA ORTEGA; Carrie Payan D.O. The [place] [address] Patient Name: KAREEN FORMAN MRN: [facility]:[id number] date: 1995 Sex: F Assigned Patient Location: US Current Patient Location: Accession/Order Number: [id number] Exam Date: 10/16/2024 13:57 Report Date: 10/16/2024 [...] Signed By: 10/16/24 1544 DD/ 1541 TD/TT: Enterer: [facility] Radiology Study observation (narrative) [facility] US OB BPP W NON-STRESS Ordered By: Radiologist Radiology on 10-16-2024 [facility] [employer] Work Phone: US OB FOLLOW UP [...] II, MD, PHD at 10-Oct-2024 07:43:20 AM [facility] Normal Not Available Comment on above: Order Comment: US OB SCAN FOR GROWTH Estimated Date of Delivery: 12/19/24 Gestational Age as of 09/25/2024: 27w6d Urinalysis macro (dipstick) panel (U)on 10-09-2024 Bilirubin, UA Negative Negative - 4(70) +++ mg/dL [facility] Blood, UA Negative Negative - 50 Roberto/mcL [facility] Clarity, UA Clear [facility] re Color, UA Yellow [facility] Glucose, UA Positive Negative - 1999(110) ++++ mg/dL [facility] Comment on above: 100 Interpretation and review of laboratory results Abnormal [facility] Ketones, UA Positive Negative - 160(16) ++++ mg/dL [facility] Comment on above: 15 Leukocytes, UA Negative Negative - 500+++ Christian/mcL [facility] Nitrite, UA Negative Negative - Positive [facility] pH, UA 7 5 - 9 [facility] Protein, UA Trace Negative - 1999(20) ++++ mg/dL [facility] Spec Grav, UA 1.025 1 - 1.03 [facility] Urobilinogen, UA 0.2 0.2 - 12 mg/dL [facility] GLUCOSE TOLERANCE 3 HOURon 0 10-07-2024 GLUCOSE TOLERANCE 3 HOUR mg/dL [facility] Comment on above: GLU FAST 83 (<95) Co l: 10/07/24 0909 GLU 1HR 163 (<180) Col: 10/07/24 1012 GLU 2HR 146 (<155) Col: 10/07/24 1112 GLU 3HR 83 (<140) Col: 10/07/24 1212 [facility] Urinalysis macro (dipstick) panel (U)on 09-25-2024 Bilirubin, UA Negative Negative - 4(70) +++ mg/dL [facility] Blood, UA Negative Negative - 50 Roberto/mcL [facility] Clarity, UA Clear [facility] Color, UA Yellow [facility] Glucose, UA Negative Negative - 1999(110) ++++ mg/dL [facility] Interpretation and review of laboratory results Abnormal [facility] Ketones, UA Negative Negative - 160(16) ++++ mg/dL [facility] Leukocytes, UA Positive Negative - 500+++ Christian/mcL [facility] Comment on above: small Nitrite, UA Negative Negative - Positive [facility] pH, UA 8.5 5 - 9 [facility] Protein, UA Negative Negative - 1999(20) ++++ mg/dL [facility] Spec Grav, UA 1.02 1 - 1.03 [facility] Urobilinogen, UA 1.0 0.2 - 12 mg/dL [facility] Urinalysis macro (dipstick) panel (U)on 2024 Bilirubin, UA Negative Negative - 4(70) +++ mg/dL [facility] Blood, UA Negative Negative - 50 Roberto/mcL [facility] Healthcare Clarity, UA Clear [facility] Color, UA Yellow [facility] Glucose, UA Negative Negative - 1999(110) ++++ mg/dL [facility] Interpretation and review of laboratory results Abnormal [facility] Ketones, UA Negative Negative - 160(16) ++++ mg/dL [facility] Leukocytes, UA Moderate Negative - 500+++ Christian/mcL [facility] Healthcare Nitrite, UA Positive Negative - Positive [facility] pH, UA 7 5 - 9 [facility] Protein, UA Positive Negative - 1999(20) ++++ mg/dL [facility] Comment on above: 100 Spec Grav, UA 1.02 1 - 1.03 [facility] Urobilinogen, UA 1.0 0.2 - 12 mg/dL [facility] Urinalysis macro (dipstick) panel (U)on 08-14-2024 Bilirubin, UA Negative Negative - 4(70) +++ mg/dL [facility] Blood, UA Negative Negative - 50 Roberto/mcL [facility] Healthcare Clarity, UA Clear [facility] re Color, UA Yellow [facility] Glucose, UA Negative Negative - 1999(110) ++++ mg/dL [facility] Interpretation and review of laboratory results Abnormal [facility] Ketones, UA Negative Negative - 160(16) ++++ mg/dL [facility] Leukocytes, UA Negative Negative - 500+++ Christian/mcL [facility] Nitrite, UA Negative Negative - Positive [facility] pH, UA 5.5 5 - 9 [facility] Protein, UA Negative Negative - 1999(20) ++++ mg/dL [facility] Spec Grav, UA 1.02 1 - 1.03 [facility] Urobilinogen, UA 1.0 0.2 - 12 mg/dL [facility] ALL CBC WITH AUTO DIFFon BASOPHILS ABSOLUTE AUTO 0 [facility] Basophils/100 WBC (Bld) 0.3 % 0.2 - 2.0 % [facility] Eosinophils/100 WBC (Bld) 0.9 % 0.9 - 7.0 % [facility] Erythrocyte distribution width (RBC) [Ratio] 14.8 % 11.0 - 15.0 % [facility] Hematocrit (Bld) [Volume fraction] 36.3 % 36.0 - 48.0 % [facility] Hemoglobin (Bld) [Mass/Vol] 11.9 g/dL Low 12.0 - 16.0 g/dL [facility] IMMATURE GRANULOCYTES ABS AUTO 0.04 High [facility] Immature granulocytes/100 WBC (Bld) 0.4 % 0.0 - 0.5 % [facility] Interpretation and review of laboratory results Abnormal [facility] LYMPHOCYTES ABSOLUTE AUTO 1.6 [facility] Lymphocytes/100 WBC (Bld) 15 % Low 20.5 - 60.0 % [facility] MCH (RBC) [Entitic mass] 27.2 pg 26.7 - 34.0 pg [facility] MCHC (RBC) [Mass/Vol] 32.8 g/dL 29.9 - 35.2 g/dL [facility] MCV (RBC) [Entitic vol] 83.1 fL 81.0 - 99.0 fL [facility] MONOCYTES ABSOLUTE AUTO 0.8 [facility] Monocytes/100 WBC (Bld) 7.4 % 1.7 - 12.0 % [facility] NEUTROPHILS ABSOLUTE AUTO 7.8 High [facility] Neutrophils/100 WBC (Bld) 76 % High 43.0 - 75.0 % [facility] Platelet mean volume (Bld) [Entitic vol] 9.2 fL Low 9.5 - 13.5 fL [facility] EO # 0.1 [facility] TB PLT [facility] RBC 4.37 [facility] TB WBC 10.3 [facility] GLUCOSE 1 HOURon 07-30-2024 Glucose [Mass/Vol] 173 mg/dL High NINF - 13 0 mg/dL [facility] Interpretation and review of laboratory results Abnormal [facility] RECURRENT VAGINITIS (HTRX)on 07-18-2024 ATOPOBIUM VAGINAE 21.066 Abnormal [facility] ATOPOBIUM VAGINAE Detected Abnormal [facility] althcare BVAB 2,3 (BACTERIAL VAGINOSIS ASSOCIATED BACTERIA 2, 3); MOBILUNCUS SPP 20.228 Abnormal [facility] Healthcare BVAB 2,3 (BACTERIAL VAGINOSIS ASSOCIATED BACTERIA 2, 3); MOBILUNCUS SPP Detected Abnormal [facility] BLANCA ALBICANS, PARAPSILOSIS, TROPICALIS 0 [facility] BLANCA ALBICANS, PARAPSILOSIS, TROPICALIS Not detected [facility] BLANCA GLABRATA 0 [facility] BLANCA GLABRATA [facility] BLANCA KRUSEI 0 [facility] Healt hcare BLANCA KRUSEI Not detected [facility] CHLAMYDIA TRACHOMATIS 0 [facility] CHLAMYDIA TRACHOMATIS Not detected [facility] Healthcare ERMB, C; MEFA 26.225 Abnormal [facility] Health care ERMB, C; MEFA Detected Abnormal [facility] GARDNERELLA VAGINALIS 21.744 Abnormal [facility] GARDNERELLA VAGINALIS Detected Abnormal [facility] Interpretation and review of laboratory results Abnormal [facility] MEGASPHAERA (TYPES 1, 2) 0 [facility] MEGASPHAERA (TYPES 1, 2) Not detected [facility] MYCOPLASMA GENITALIUM 0 [facility] MYCOPLASMA GENITALIUM Not detected [facility] NEISSERIA GONORRHOEAE 0 [facility] NEISSERIA GONORRHOEAE Not detected [facility] TET B, TET M 24.757 Abnormal [facility] are TET B, TET M Detected Abnormal [facility] are TRICHOMONAS VAGINALIS 0 [facility] TRICHOMONAS VAGINALIS Not detected [facility]inalysis macro (dipstick) panel (U)on 07-17-2024 Bilirubin, UA Negative Negative - 4(70) +++ mg/dL [facility] Blood, UA Negative Negative - 50 Roberto/mcL [facility] Clarity, UA Clear [facility] re Color, UA Yellow [facility] Glucose, UA Negative Negative - 1999(110) ++++ mg/dL [facility] Interpretation and review of laboratory results Abnormal [facility] Ketones, UA Positive Negative - 160(16) ++++ mg/dL [facility] Leukocytes, UA Trace Negative - 500+++ Christian/mcL [facility] Nitrite, UA Negative Negative - Positive [facility] pH, UA 5.5 5 - 9 [facility] Protein, UA Trace Negative - 1999(20) ++++ mg/dL [facility] Spec Grav, UA 1.03 1 - 1.03 [facility] Urobilinogen, UA 0.2 0.2 - 12 mg/dL [facility] Urinalysis macro (dipstick) panel (U)on 06-17-2024 Bilirubin, UA Negative Negative - 4(70) +++ mg/dL [facility] Blood, UA Negative Negative - 50 Roberto/mcL [facility] Clarity, UA Clear [facility] re Color, UA Yellow [facility] Glucose, UA Negative Negative - 1999(110) ++++ mg/dL [facility] Interpretation and review of laboratory results Abnormal [facility] Ketones, UA Negative Negative - 160(16) ++++ mg/dL [facility] Leukocytes, UA Negative Negative - 500+++ Christian/mcL [facility] Nitrite, UA Negative Negative - Positive [facility] pH, UA 6 5 - 9 [facility] e Protein, UA Positive Negative - 1999(20) ++++ mg/dL [facility] Comment on above: 100 Spec Grav, UA 1.03 1 - 1.03 [facility] Urobilinogen, UA 0.2 0.2 - 12 mg/dL [facility] e ALL CBC WITH AUTO DIFFon BASOPHILS ABSOLUTE AUTO 0.0 [facility] Basophils/100 WBC (Bld) 0.4 % 0.2 - 2.0 % [facility] Eosinophils/100 WBC (Bld) 1.1 % 0.9 - 7.0 % [facility] Erythrocyte distribution width (RBC) [Ratio] 14.2 % 11.0 - 15.0 % [facility] Hematocrit (Bld) [Volume fraction] 39.3 % 36.0 - 48.0 % [facility] e Hemoglobin (Bld) [Mass/Vol] 12.8 g/dL 12.0 - 16.0 g/dL [facility] IMMATURE GRANULOCYTES ABS AUTO 0.02 [facility] Immature granulocytes/100 WBC (Bld) 0.3 % 0.0 - 0.5 % [facility] Interpretation and review of laboratory results Abnormal [facility] LYMPHOCYTES ABSOLUTE AUTO 1.6 [facility] Lymphocytes/100 WBC (Bld) 21.5 % 20.5 - 60.0 % [facility] MCH (RBC) [Entitic mass] 26.8 pg 26.7 - 34.0 pg [facility] MCHC (RBC) [Mass/Vol] 32.6 g/dL 29.9 - 35.2 g/dL [facility] MCV (RBC) [Entitic vol] 82.2 fL 81.0 - 99.0 fL [facility] MONOCYTES ABSOLUTE AUTO 0.4 [facility] Monocytes/100 WBC (Bld) 5.1 % 1.7 - 12.0 % [facility] NEUTROPHILS ABSOLUTE AUTO 5.3 [facility] Neutrophils/100 WBC (Bld) 71.6 % 43.0 - 75.0 % [facility] Platelet mean volume (Bld) [Entitic vol] 9.2 fL Low 9.5 - 13.5 fL [facility] are TBH EO # 0.1 [facility] TBH PLT 324 [facility] TB RBC 4.78 [facility] TB WBC 7.4 [facility] HCG ( test) Ql (U)o n 05-16-2024 Interpretation and review of laboratory results Abnormal [facility] Preg Test, Ur Positive [facility] Health care [facility] Cytology Cervical or vaginal smear or scraping studyOrdered By: Sheila Flowers on 04-07-2024 [facility] Coding Summary.on 04-07-2022 Coding Summary. [id number] h0bWw+PGhlYWQ+TU4HZIG bT59xcVThhO2VP5iVAT8I GAQLYQXCOK1PSW1xbAC3E QppK0UctxBa RjmcaYPsWP34IGx3OJW5c EshIIgylH0miRBpI4k7Wt OhZG77zJ84STnzXCKtUfI 3LjZpbjsgbWFy S5yqMxUwfDGqMhe+PHRhY mxlIHdpZHRoPScxMDAlJy PptLmcRM3wEy1zMJIfOTB vbGxhcHNlOiBj q2vkOSTzVNcxMH6uzWjzE 8AzpQC7WONts2m0Lr85kK I+GNLmYZZ8pOwrMNdzg02 4OwLao2qmUML1 tWYlHIutFGU4N40qa2H9R IEpVQDfJSF1wUF9xK7caZ udtvktO5CcnLFsXvK6PNH 4fPTkqA0liJdv mfmbxQ9hMnd+I90HXN1YC EETCL5CAtd4I7ZsBhxxvH I+RF01OHTkWS47yMVwxXL ol8yxaAf4OgIa LPHnMEF4uQrxEHvjp1GrS JVjA34orGXvb3X2LZJicW nqbGFhEvLszZS9bH9eXPj onuzox8tmsimd Zsddi3khhf58fS32C71eV GaaJRTtVSB3CHXxZADhgV hcrf9bhQ8mKf4+HCbua0x om8hosVi5QaGn ZUCjpsBvrUcaYLO3s9EuB j98L6WjcIrpg2DhDyq1td 30lOOhx4M5dLS1AFuqJWT daK8cRLziUxM1 XNSbYzDamF07pDFmTAqfG e8pkBaxiWecVA4oVFRyhc cfFACmtN8gIMVxbOHwhIz vPH2xEADvaifz r335YuMiVLO1JZKxjCOlG 8LspE5iRtWfDXCzYRXdJ4 LeyJUzHFunM293GZhuRtW 0FMQatwUlY7Eo VJKwwTxfQhG6o9Z9Oz2Yr 0KubsmvOXB4OXwrFQW3Df K7SxFpLzT2T4IqDyp5RZD hyIvzOU0wV9Ob FNPdtjfzsiblyPV9XKNxX VWqrV40wXLcAOpcDp4mw8 K5l384OCZtWGQbmH35Zp9 udDogMTBwdCBU wE6qypepa5kbvqnwMmKbO FGyKTv1UAe7YTHugLuyYb PmXBP5KlN1QDU0jZWmwE8 oxYcebxkmaH0r Oyc+A20crE3qQVH5BJT5w xieJNUoqtBdKK78QC66X0 RyPjwvdGFibGU+PGRpdiB miYtpNQ1oUdWc l7gle6DqRJbdR4NgTXDbA WutOnh1JAPuEOR5kSQ4gZ 5dTNYmJQiie2T4vKV3O2L ltfIoin7xw5zn APMsQXihR59hkRYoq6Q5T RGbgQM3FVHdpDvnBxOokK 93Oyc+EUEgvCirj6EmOsd xp7fsm2ebdUo6 ZnDrHSKrchWbsCayMHX2b 3FwYr03L41aBHqhATMjKP SnGRPcULYcaXetqe6sgT9 wIi8+PGNvbCB3 fNZ6sH5tXPVkLqO0LLkpU 181ChYkwPSqMpeyx3jne6 mkqTm2RmQsJPXbnlBdvJv rEGX5v7KdJk73 B86uFUxyIXQrXOShMCSvA XEdfYawtr6zsK2yOp8+PC 3dd6dxdx66oI13vAO+PHR nFTE6aMvwGUnl RJJagL2xYNelMmT6FVOnK xTujB82uIClDYbcJl7quY xcuRybNF6gDJImhhecp12 5PzTec9eeNGHs cEIrHTwnVYS8H99bt7E5T MNjXSJbIDA9ePS5yM3ksV lnbjogbGVmdDsgdmVydGl gTKpoRLosA601 IHRvcDsnPlBhdGllbnQgT jGnUOf8X0FzYys1TMBmzH xrOB8cvEJcNUjwTd4fyZn niHmlAM1gLCFj irvym509KiExv8mbIBEqx AWfWPktWZC5V91eq0P3PC HdOJAkAIG8nRR2xL4feEa nbjogbGVmdDsg rwMvyCleKYmdQCuyZ569Z HRvcDsnPkJpcnRoIERhdG Q6CK63ZP10cOKiu4K0qHC 4B1GsKXSxnnvy rgdrrUJ5WAAbKVQycY80Q t6vcZtnZb7rSAZiYFV0UZ WlpFAoB6YvaD4wOdLnKGZ pRISjO1FexMVw QSauP212OWewZrF1BAIeo gTaZ0IyOUVhrKbbVuE0u8 X6Wf8AD5A2EG04GR84gLT ti7T6iOS5M8Vh KLDqupogiqsboMF4KFQjH VIxdG64Yv9roBmePv1kRL AlEGT9ZIIgeLTbN8NdlT7 yOiAjMDAwMDAw Y5DbuQYdKRgsM645YGooV rV2TMGizmEvB3CfKIYanN xqZhY8g4X2Vn2MDBh8FY2 1XG54pDHly2K9 dVY9Q9GxMNTkuoijtoivb GH6GFWlFCBcuX26Vo7ocC cnEm4xIFHwKCV7DIZexZB dE0FtdN9iZvBl JSUrJAGxQ8PhaXKgOUzoS 721CAwaQdT0NJAnjoClQ2 NqLMOesTjwBwC5s4X7Ec2 OUYWnFV36IQR4 aES0OW14HY63K4KrFdzlv GFibGU+PHRhYmxlIHdpZH RoPScxMDAlJyBzdHlsZT0 wXu0dKHIhLSFy kHcriIRoAxGww9blUEMwK CmzVF5mwGuvJ8HisGH7YH Ida6j7Jp85L97wI0JjmWP +SXMvmXN9tRU2 bR4sJkZxHhO7HBwnX848M aWfyCKyPocao6xlm8ycbX c9FyI2BHCcklAwvIusTIY 7z1GyWi08G69g IHdpZHRoPSIxNSUiIHZhb Smiuj7phD1zIs1+PGNvbC B2hYS1xH8kFtRxEtU6VAi dD901FqQbqFEs Kbjes1slp9zavJs5EzAdI QMvzfGmpSqkCWX3r4LkWd 13F0SjiMdde0UyNwe5aj9 4tWYyj7L4nXK6 N0JfZDQtrykfsQMcpDyyM U1qIRVahvttUPMiaO0rOZ KkS2r4LmFzOhS9ZKtuS1N uzmA8AXEbsPBb XSkbIWM2X36ua0Y2KYShE CZlOCM4bUJ9oV3obMmxtx ogbGVmdDsgdmVydGljYWw oURixB565IAAf lKcsSKExyT5zGKGscIJex TdqFN8wQGGutpyaFyLJDQ BQLCBIQUxFWSBOSUNPTEU 8S6GrNkt7ILIq lSexWR5zkTEdLMudOz3lg IxguQstPR0fHJUchxshGY AflJ4bKTKopYPukRwsPS2 mUALwvwluc315 KpFvNKF2BLStpQAdQ9Myd M7aRpAmXYBeDZUxK2YvvT JcQGczS283FDoyWuJ7EBX xppSvK6ZwQKPg aAfjMjA6f4T2Gf7qLJ9fL U0oZPe6CF21HL92eBHlb3 W6dXN0E5LlQBZgfzpnxjw kvHQ4HILyNOTw bL37bSZaXHavVp5rp5L7e 823ZXTpTLNntZ83Ki6fsF gpMVOjrFTOjM4vbxgcp3w vcjogIzAwMDAw EIm5FDd6MEVryZanEuPeM QG4BhW5ZAS6bXGkyN7ynV stkzrzvO3fIjd+MjQgWWV aqnL2G0AkCsy9 WFShdEzhBI4xeBBgCVdxY j4ckTpfwFasRI5gMEVktt emCHFadZ7dWWTliDZkmSh uAU1jVHSgrjma w668SwQoUKD3RRDeiLXqC 9KylM2eOmUaOXNpYTVhS9 WsyYSjHEmmC421GVivZlZ 2VKRttuQjZ8Rs SSLmnZzmIrR2o9H0Ac8GW S7pbYB7P2UfHec9WKGudC ltIO3dfIWhFVdqBo8gfCb atXsgXX3dKJXt mjesVELacW1aVXOqsAIep IjySD7cYMMkgsqng311Mz ZeAOV3AFNzuHLnT0LoiJ2 yOiAjMDAwMDAw T4EbcNFxNJtnW087EAulY dO6UPQvvzTfE5BiSORpyF flOuB3k7N4Yd2EnQKlONQ kSI60MV95HJ19 C5RnMtpqjBFfnUE+PHRhY mxlIHdpZHRoPScxMDAlJy UxfRbwCQ4wNq6gDNPdSZS vbGxhcHNlOiBj q4phHSUdHDuhMY8urWxlL 8BspZD7DOOel8j4Ff10M4 3qG0KnkHE+OIFogPD6jPW 3xL6pMrOjZzV5 WPkjH243HyQqnQTgLmcba 3stf1gboWv3MgEwCFZgqn HkmCzvOTD3f6KrMt92D61 sIHdpZHRoPSIy JTQyWTKisKozrj5dhO5xI i8+IVQavTT9vQN3cN9iRu MkVtR1MEftL572RxJwxWL hDvhvR57sP8Wl dXA+PWUwCkr7SMUhpHouV G8lwLFzAHvqDd3sXUV3Jn TfUhDdKWtbS1KyRNYctzt jiwytgBF2QGZj MHMzmR89Op0ikQezAp6zJ QFaMMZ5AKBesIOgU8FjaA 5iTmPbSFTtJHNsL8DqzLW lQUeiV228WZwz TcT9RDOraoYrM3GlBZKat QxjXgG6m0F6Jg5NyNmimU ExYA2sRaIxUUt3U0DyYes 5MRWfgKsuWY6h vXVhKLsfCg9omFyxrNbhL R3hIUApgjste064XnTrj4 qjNEBhnIAqONuwPXU0A09 ek9M5UFGsRMQm BMP5kYI6lE2jhYmjtnnhb GVmdDsgdmVydGljYWwtYW pwB909ZMYpwXqnIhXYCfv 2B6KmWkf9LKAa mKtjOC8kpYKjAIljRg9yi WcpvLtzCY2tZEHkqojxp9 41OyLxi6ptMWFxeHDwMFf uLDJ0D11hb9X8 RTYwSEWoTBI7oDW6aK8ch GlnbjogbGVmdDsgdmVydG qdGRjpJRgsG871HLHizOi nQp4EFlu9L9Jk Cgs6EIWqxCksLU9owMQjB LkxJa6ijTfczMosCC2vGY Mhumnqi944XsLto1eiJZO wcHQgVGltZXM7 D29ir9T2HLYwFABuCYV6d EM6hM5qbRggpazmpHCxuU wtloPbdTwmMQriACssB55 6IHRvcDsnPlBh eWVyOjwvdGQ+UX62qe53X 3UjCbysNry4HYBoFQG2cY B4hB2xREEiJUvvn8M2qAS 0B9BhjgPgzg9w b2xs (more content not included)... Normal [facility] XR Ankle 3+ Views Lefton XR Ankle [...] M.D. Transcribed by: JENN Technologist: STEVEN Normal [facility] Consent for Treatmenton Consent for Treatment [id number]:127 Normal [facility] Physician Orderon 04-03-2022 Physician Order [id number] 1.00CD:127 Normal [facility] XR ANKLE LT MIN 3 Von 2021 XR ANKLE LT MIN 3 V EXAM: XR ANKLE LT NE N 3 V, XR FOOT LT MIN [...] by: MARQUIS HENSON Date: 2022-03-11 16:04 Normal [facility] PAP ACOG PANEL 2: 21 to 29on 10-24-2021 . . Normal [facility] Comment on above: Performed By: #### [id number] #### [facility] [address] [place] [address] Dr. Aura Griffiths Age Gdln ACOG Testing 21-29 Normal [facility] Comment on above: Performed By: #### [id number] #### [facility] [address] [address] [address] Aura Griffiths DIAGNOSIS: Comment [facility] Comment on above: Result Comment: NEGA TIVE FOR INTRAEPITHELIAL LESION OR MALIGNANCY. Performed By: #### [id number] #### [facility] [address] [address] [address] Aura Griffiths Methodology: Comment [facility] Comment on above: Result Comment: This liquid based ThinPrep(R) pap test was screened with the use of an image guided system. Performed By: #### [id number] #### [facility] [address] [place] [address] Dr. Aura Griffiths Note: Comment Normal [facility] [...] do occur. . Performed By: #### [id number] #### [facility] [address] [place] [address] Dr. Aura Griffiths Performed by: Comment Normal [facility] Comment on above: Result Comment: Radha Trevino, Historical Society Director (ASCP) Performed By: #### [id number] #### [facility] [address] [place] [address] Dr. Aura Griffiths Reflex Criteria: Comment Normal [facility] Comment on above: Result Comment: The HPV DNA reflex criteria were not met with this specimen result therefore, no HPV testing was performed. . Performed By: #### [id number] #### [facility] [address] [place] [address] Dr. Aura Griffiths Specimen adequacy: Comment Normal [facility] Comment on above: Result Comment: Sati sfactory for evaluation. Endocervical and/or squamous metaplastic cells (endocervical component) are present. Performed By: #### [id number] #### [facility] [address] [place] [address] Dr. Aura Griffiths Vital Signs Date Time Vital Sign Value Performing Clinician Faci lity 11-13-2024 10:40-0400 Body mass index (BMI) [Ratio] 46.17 kg/m2 Karla OSPINA Work Phone: [facility] 11-13-2024 10:40-0400 Body weight 122.02 kg Karla OSPINA Work Phone: [facility] 11-13-2024 10:40-0400 Diastolic blood pressure 80 mm[Hg] Karla OSPINA Work Phone: [facility] 11-13-2024 10:40-0400 Systolic blood pressure 130 mm[Hg] Karla Denver PA Work Phone: [facility] 11-06-2024 14:02-0500 Body mass index (BMI) [Ratio] 45.68 kg/m2 Karla Grant PA Work Phone: [facility] 11-06-2024 14:02-0500 Body weight 120.71 kg Karla Grant PA Work Phone: [facility] 11-06-2024 14:02-0500 Diastolic blood pressure 80 mm[Hg] Karla Grant PA Work Phone: [facility] 11-06-2024 14:02-0500 Systolic blood pressure 126 mm[Hg] Karla Denver PA Work Phone: [facility] 10-23-2024 11:16-0500 Body mass index (BMI) [Ratio] 45.66 kg/m2 Karla Denver PA Work Phone: [facility] 10-23-2024 11:16-0500 Body weight 120.66 kg Karla Denver PA Work Phone: [facility] 10-23-2024 11:16-0500 Diastolic blood pressure 80 mm[Hg] Karla Denver PA Work Phone: [facility] 10-23-2024 11:16-0500 Systolic blood pressure 124 mm[Hg] Karla Grant PA Work Phone: [facility] 10-09-2024 10:43-0500 Body mass index (BMI) [Ratio] 46.17 kg/m2 Carrie Ora DO Work Phone: [facility] 10-09-2024 10:43-0500 Body weight 122.02 kg Carrie Ora DO Work Phone: [facility] 10-09-2024 10:43-0500 Diastolic blood pressure 70 mm[Hg] Carrie Ora DO Work Phone: [facility] 10-09-2024 10:43-0500 Systolic blood pressure 120 mm[Hg] Carrie Ora DO Work Phone: [facility] 09-25-2024 08:58-0500 Body mass index (BMI) [Ratio] 45.49 kg/m2 Carrie Ora DO Work Phone: [facility] 09-25-2024 08:58-0500 Body weight 120.2 kg Carrie Ora DO Work Phone: [facility] 09-25-2024 08:58-0500 Diastolic blood pressure 72 mm[Hg] Carrie Ora DO Work Phone: [facility] 09-25-2024 08:58-0500 Systolic blood pressure 122 mm[Hg] Carrie Ora DO Work Phone: [facility] 2024 09:48-0500 Body mass index (BMI) [Ratio] 44.97 kg/m2 Karla OSPINA Work Phone: [facility] 2024 09:48-0500 Body weight 118.84 kg Karla Grant PA Work Phone: [facility] 2024 09:48-0500 Diastolic blood pressure 70 mm[Hg] Karla Grant PA Work Phone: [facility] 2024 09:48-0500 Systolic blood pressure 120 mm[Hg] Karla Denver PA Work Phone: [facility] 08-14-2024 11:20-0500 Body mass index (BMI) [Ratio] 44.53 kg/m2 Carrie Ora DO Work Phone: [facility] 08-14-2024 11:20-0500 Body weight 117.66 kg Carrie Ora DO Work Phone: [facility] 08-14-2024 11:20-0500 Diastolic blood pressure 82 mm[Hg] Carrie Ora DO Work Phone: [facility] 08-14-2024 11:20-0500 Systolic blood pressure 124 mm[Hg] Carrie Ora DO Work Phone: [facility] 07-17-2024 10:48-0500 Body mass index (BMI) [Ratio] 45.28 kg/m2 Carrie Ora DO Work Phone: [facility] 07-17-2024 10:48-0500 Body weight 119.66 kg Carrie Ora DO Work Phone: [facility] 07-17-2024 10:48-0500 Diastolic blood pressure 70 mm[Hg] Carrie Ora DO Work Phone: [facility] 07-17-2024 10:48-0500 Systolic blood pressure 120 mm[Hg] Carrie Ora DO Work Phone: [facility] 06-17-2024 10:48-0400 Body mass index (BMI) [Ratio] 44.99 kg/m2 Carrie Ora DO Work Phone: [facility] 06-17-2024 10:48-0400 Body weight 118.9 kg Carrie Ora DO Work Phone: [facility] 06-17-2024 10:48-0400 Diastolic blood pressure 70 mm[Hg] Carrie Ora DO Work Phone: [facility] 06-17-2024 10:48-0400 Systolic blood pressure 120 mm[Hg] Carrie Ora DO Work Phone: [facility] 05-16-2024 09:16-0400 Body mass index (BMI) [Ratio] 46 kg/m2 Noms Nurse [facility] 05-16-2024 09:16-0400 Body weight 121.56 kg Nom Nurse [facility] 05-16-2024 09:16-0400 Diastolic blood pressure 70 mm[Hg] Noms Nurse [facility] 05-16-2024 09:16-0400 Systolic blood pressure 120 mm[Hg] Nom Nurse [facility] Healthcare Encounters Encounter Date Encounter Type Care Provider Facility Start: 11-13-2024 End: 11-13-2024 Lamonte OSPINA Work Phone: [facility] Start: 11-13-2024 End: 11-13-2024 Bamboo flowsheet Karla OSPINA Work Phone: [facility] Start: 11-13-2024 End: 11-13-2024 Clinisync Result Encounter Carrie Ora DO Work Phone: [facility] Unsolicited Start: 11-13-2024 End: 11-13-2024 flow sheet Karla OSPINA Work Phone: [facility] Comment on above: External hemorrhoid (Primary Dx); 34 weeks gestation of ; Third trimester ; Vaginal irritation Start: 11-13-2024 End: 11-13-2024 ambulatory KARLA BURNS Not Available Start: 11-06-2024 End: 11-06-2024 Bamboo flowsheet Karla OSPINA Work Phone: [facility] Start: 11-06-2024 End: 11-06-2024 Bamboo flowsheet Karla OSPINA Work Phone: [facility] Start: 11-06-2024 End: 11-06-2024 flow sheet Karla OSPINA Work Phone: [facility] Comment on above: 33 weeks [...] Start: 10-23-2024 End: 10-23-2024 flow sheet Karla Burns PA Work Phone: [facility] Comment on [...] 2024 Bamboo flowsheet Karla OSPINA Work Phone: [facility] Start: 2024 End: 2024 Bamboo flowsheet Karla OSPINA Work Phone: [facility] Start: 2024 End: 2024 flow sheet Karla OSPINA Work Phone: [facility] Comment on above: 25 weeks gestation o f ; Second trimester ; UTI symptoms Start: 2024 End: 2024 ambulatory KARLA BURNS Not Available Start: 08-14-2024 End: 08-14-2024 Bamboo flowsheet Carrie Ora DO Work Phone: [facility] Start: 08-14-2024 End: 08-14-2024 Bamboo flowsheet Carrie Ora DO Work Phone: [facility] Start: 08-14-2024 End: 08-14-2024 flow sheet Carrie Ora DO Work Phone: [facility] Comment on above: Second [...] Date Procedure Procedure Detail Performing Clinician Start: 11-13-2024 OB BPP W NON-STRESS Carrie Ora DO Work Phone: Start: 11-13-2024 Urnls dip stick/tabl et rgnt non-auto w/o micrscp Karla OSPINA Work Phone: Start: 11-06-2024 Urnls dip stick/tabl et rgnt non-auto w/o micrscp Karla OSPINA Work Phone: Start: 10-31-2024 OB BPP W NON-STRESS Carrie Ora DO Work Phone: Start: 10-23-2024 OB BPP W NON-STRESS Carrie [...] PM EDT Routine [facility] [address] [place] [address] Carrie Payan, DO [address] [place] [address] [facility] Start: 11-24-2024 End: 11-24-2024 Patient encounter procedure 11/24/2024 9:30 AM EDT Routine [facility] [address] [place] [id number] Carrie Payan, DO [address] [place] [address] [facility] Start: 11-13-2024 End: 11-13-2024 Patient encounter procedure 11/13/2024 10:10 AM EDT Office Visit [facility] [address] [place] [place] [id number] Karla Burns PA [address] [place] [address] Arrived [facility] Comment on above: [...] Routine [facility] [address] [place] [id number] Carrie Payan, DO [address] [place] [address] [facility] Start: 10-09-2024 End: 10-09-2024 Professional / ancillary services management 10/09/2024 10:00 AM EST Ancillary Procedure [facility] [address] [place] [address] [facility] Start: 09-25-2024 End: 09-25-2025 Measurement of glucose 3 hours after glucose challenge for glucose tolerance test Glucose tolerance, 3 hours Lab Routine Elevated glucose tolerance test Expected: 09/25/2024 (Approximate), Expires: 09/25/2025 [facility] Healthcare Comment on above: Expected: 09/25/2024 [...] Ancillary Procedure [facility] [address] [place] [address] [facility] OB Start: 07-17-2024 End: 09-16-2024 Alpha fetoprotein, maternal Alpha fetoprotein, maternal Lab Routine Second trimester Expected: 07/17/2024 (Approximate), Expires: 09/16/2024 [facility] Comment on above: Expected: 07/17/2024 (Approximate), Expires: 09/16/2024 Start: 07-17-2024 End: 07-17-2025 Measurement of glucose 1 hour after glucose challenge for glucose tolerance test GTT, 1 hour Lab Routine History of gestational diabetes Expected: 07/17/2024 (Approximate), Expires: 07/17/2025 [facility] Healthcare Comment on above: Expected: 07/17/2024 (Approximate), Expires: 07/17/2025 Start: 07-17-2024 End: 07-17-2025 US for US OB ANATOMY SINGLE W US OB CERVICAL LENGTH Imaging Routine Screening, , for anatomic survey Expected: 07/17/2024 (Approximate), Expires: 07/17/2025 [facility] Healthcare Comment on above: Expected: 07/17/2024 (Approximate), Expires: 07/17/2025 Start: 07-15-2024 End: 07-15-2024 Patient encounter procedure 07/15/2024 10:50 AM EST Routine [facility] OB [address] [place] [id number] Carrie Payan, DO [address] [place] [id number] [facility] OB Start: 06-17-2024 End: 06-17-2024 Patient encounter procedure [facility] OB Comment on above: Arrived Start: 05-16-2024 End: 05-16-2025 ABO/Rh ABO/Rh Lab Routine Missed menses Expected: 05/16/2024 (Approximate), Expires: 05/16/2025 [facility] Healthcare Comment on above: Expected: 05/16/2024 (Approximate), Expires: 05/16/2025 Start: 05-16-2024 End: 05-16-2025 Blood type and Indirect antibody screen panel - Blood Type and screen Lab Routine Missed menses Expected: 05/16/2024 (Approximate), Expires: 05/16/2025 [facility] Work Phone: Comment on above: Expected: 05/16/2024 (Approximate), Expires: 05/16/2025 Start: 05-16-2024 End: 05-16-2025 Drugs of abuse panel - Urine by Screen method Rapid drug screen, urine Lab Routine Encounter for supervision of normal first in first trimester , unspecified gestational age Expected: 05/16/2024 (Approximate), Expires: 05/16/2025 [facility] Comment on above: Expected: 05/16/2024 (Approximate), Expires: 05/16/2025 Start: 05-16-2024 End: 05-16-2025 US Pelvis transvaginal US OB transvaginal Imaging Routine Missed menses Expected: 05/16/2024 (Approximate), Expires: 05/16/2025 [facility] Healthcare Comment on above: Expected: 05/16/2024 (Approximate), Expires: 05/16/2025 Bacteria identified in Urine by Culture Urine culture Microbiology Routine Missed menses Ordered: 05/16/2024 [facility] Comment on above: Ordered: 05/16/2024 Bacteria identified in Urine by Culture Urine culture Microbiology Routine UTI symptoms Ordered: 2024 [facility] Work Phone: Comment on above: Ordered: 2024 CBC W Auto Different ial panel - Blood CBC and differential Lab Routine Missed menses Ordered: 05/16/2024 [facility] Comment on above: Ordered: 05/16/2024 CHLAMYDIA TRACHOMATI S (GENITO/STI) CHLAMYDIA TRACHOMATIS (GENITO/STI) Lab Routine Exposure to STD Ordered: 07/17/2024 [facility] Comment on above: Ordered: 07/17/2024 Hemoglobin A1c/Hemoglobin.total in Blood Hemoglobin A1c Lab Routine Missed menses Ordered: 05/16/2024 [facility] Comment on above: Ordered: 05/16/2024 Hepatitis B virus surface Ag [Presence] in Serum or Plasma by Immunoassay Hepatitis B surface antigen Lab Routine Missed menses Ordered: 05/16/2024 [facility] Comment on above: Ordered: 05/16/2024 Hepatitis C virus Ab [Presence] in Serum or Plasma by Immunoassay Hepatitis C antibody Lab Routine Missed menses Ordered: 05/16/2024 [facility] Comment on above: Ordered: 05/16/2024 HIV-1/HIV-2 antigen/antibody combination immunoassay HIV-1 and HIV-2 antibodies Lab Routine Missed menses Ordered: 05/16/2024 [facility] Comment on above: Ordered: 05/16/2024 Neisseria gonorrhoea e DNA [Presence] in Unspecified specimen by XIOMARA with probe detection Neisseria gonorrhea DNA probe, direct Lab Routine Exposure to STD Ordered: 07/17/2024 [facility] Comment on above: Ordered: 07/17/2024 Reagin Ab [Presence] in Serum by RPR RPR Lab Routine Missed menses Ordered: 05/16/2024 [facility] Comment on above: Ordered: 05/16/2024 Rubella antibody, IgG Rubella an tibody, IgG Lab Routine Missed menses Ordered: 05/16/2024 [facility] Comment on above: Ordered: 05/16/2024 SURESWAB(R) ADVANCED VAGINITIS PLUS, TMA SURESWAB(R) ADVANCED VAGINITIS PLUS, TMA Pathology and Cytology Routine Vaginal discharge Ordered: 07/17/2024 [facility] Work Phone: Comment on above: Ordered: 07/17/2024 Payers Date Payer Category Payer Unknown [id number] 2023 [facility] [id number] 2023 Unknown BCBS BCBS [id number] [id number] 2023-Present [phone] [address] [place] [address] [id number] 2023 Unknown [id number] 1995 Unknown [id number] 2.16.840.1.364985.3.579.2.5 93 1997 Unknown [id number] 2.16.840.1.799296.3.579.2.5 93 1997 Unknown [id number] 2.16.840.1.720083.3.579.2.1 259 1997 Unknown [id number] 2.16.840.1.208409.3.579.2.1 259 1997 Unknown [id number] 2.16.840.1.669761.3.579.2.1 259 1997 Unknown [id number] 2.16.840.1.669778.3.579.2.1 259 1997 Unknown [id number] 2.16.840.1.425130.3.579.2.1 259 1997 Unknown [id number] 2.16.840.1.252249.3.579.2.1 259 1997 Unknown [id number] 2.16.840.1.570842.3.579.2.1 259 1997 Unknown [id number] 2.16.840.1.563814.3.579.2.1 259 1997 Unknown [id number] 2.16.840.1.355406.3.579.2.1 259 1997 Unknown [id number] 2.16.840.1.289478.3.579.2.1 259 1997 Unknown [id number] 2.16.840.1.920994.3.579.2.1 259 1997 Unknown [id number] 2.16.840.1.755267.3.579.2.1 259 1959 Private Health Insurance [id number] 1959 Unknown [id number] Social History Date Type Detail Facility Start: 07-31-2023 Tobacco smoking stat [facility] Never smoked tobacco [facility] Start: 07-31-2023 Tobacco use and exposure Smokeless t obacco non-user [facility] Start: 05-16-2024 End: 11-13-2024 Alcoholic beverage intake Lifetime non-drinker (finding) [facility] Start: 07-31-2023 End: 04-07-2024 History of Social function [facility] Start: 07-31-2023 End: 04-07-2024 Tobacco use panel [facility] Start: 03-28-2024 [facility] Start: 1995 Sex assigned at Female [facility] Start: 01-23-2023 Gender identity Identifies as female gender (finding) [facility] Clinical Notes 05-16-2024 to 11-13-2024 BHAVESH Javier - 11/13/2024 10:10 AM BHAVESH Garcia - 11/06/2024 1:50 PM BHAVESH Mares - 10/23/2024 10:50 AM Scarlet Dickens LPN - 10/09/2024 10:40 AM BHAVESH Mares - 2024 9:30 AM EST Note Date & Type Note Facility 11-13-2024 History of Presen t illness Narrative Images from the original note were not included. Reason for Appointment: Patient ID: Kareen Forman is a 29 y.o. female who presents for vaginal irritation and Routine Visit Patient presents today for Vaginal Irritation. MEDICATIONS Current Outpatient Medications Medication Instructions aspirin 81 mg, Oral, Daily ALLERGIES No Known Allergies PROBLEMS Active Ambulatory Problems Diagnosis Date Noted No Active Ambulatory Problems Resolved Ambulatory Problems Diagnosis Date Noted No Resolved Ambulatory Problems Past Medical History: Diagnosis Date Depression screening Encounter for gynecological examination (general) (routine) without abnormal findings Family planning Insulin resistance Morbid obesity with BMI of 40.0-44.9, adult ([facility]) Negative test On Depo-Provera for contraception HISTORY PAST MEDICAL HISTORY SOCIAL HISTORY Past Medical History: Diagnosis Date Depression screening Encounter for gynecological examination (general) (routine) without abnormal findings Family planning Insulin resistance Morbid obesity with BMI of 40.0-44.9, adult ([facility]) Negative test On Depo-Provera for [...] Appearance: Normal appearance. She is well-developed. Genitourinary: Genitourinary Comments: External hemorrhoid Rectum: External hemorrhoid present. Cardiovascular: Rate and Rhythm: Normal rate and [...] nursing note reviewed. Exam conducted with a topstitcher lockstitch present. Vitals: Estimated body mass index is 46.17 kg/m as calculated from the following: Height as of 01/24/23: 5' 4 . Weight as of this encounter: 269 lb. BP: 130/80 Patient's last menstrual period was 03/14/2024. ASSESSMENT & PLAN ICD-10-CM 1. 34 weeks gestation of Z3A.34 POCT urinalysis dipstick manually resulted 2. Third trimester Z34.93 POCT urinalysis dipstick manually resulted 3. Vaginal irritation N89.8 Return OB: Patient presents today for a routine obstetrics appointment. Patient is currently 34w6d . Patient states she is doing well but has complaints of being tired due to current . Patient has verbalizes frequent movement. labor precautions was discussed/given and patient was instructed to perform kick counts three times a day. Patient is having some vaginal irritation states looks like a skin tag and when she does wipe or urinate it does hurt. Patient is advised this appears to be a hemorrhoid and she can do an outside cream and this will continue to get bigger until delivery. Medication will be sent. Orders Placed This Encounter Procedures POCT urinalysis dipstick manually resulted Follow Up: Patient is to return to office in 2 week for routine OB appointment. Documented by Shannan Peña LPN on behalf of: BHAVESH Javier documented in this encounter [facility] 11-06-2024 History of Presen t illness Narrative [...] Morbid obesity with BMI of 40.0-44.9, adult ([facility]) Negative test On Depo-Provera for contraception HISTORY PAST MEDICAL HISTORY SOCIAL HISTORY Past Medical History: Diagnosis Date Depression screening Encounter for gynecological examination (general) (routine) without abnormal findings Family planning Insulin resistance Morbid obesity with BMI of 40.0-44.9, adult ([facility]) Negative test On Depo-Provera for [...] nursing note reviewed. Exam conducted with a topstitcher lockstitch present. Vitals: Estimated body mass index is 45.68 kg/m as calculated from the following: Height as of 5/24/23: 5' 4 . Weight as of this [...] of: BHAVESH Javier documented in this encounter [facility] 10-23-2024 History of Presen t [...] Morbid obesity with BMI of 40.0-44.9, adult ([facility]) Negative test On Depo-Provera for contraception HISTORY PAST MEDICAL HISTORY SOCIAL HISTORY Past Medical History: Diagnosis Date Depression screening Encounter for gynecological examination (general) (routine) without abnormal findings Family planning Insulin resistance Morbid obesity with BMI of 40.0-44.9, adult ([facility]) Negative test On Depo-Provera for [...] of: BHAVESH Javier documented in this encounter [facility] 10-09-2024 History of Presen t [...] Morbid obesity with BMI of 40.0-44.9, adult ([facility]) Negative test On Depo-Provera for contraception HISTORY PAST MEDICAL HISTORY SOCIAL HISTORY Past Medical History: Diagnosis Date Depression screening Encounter for gynecological examination (general) (routine) without abnormal findings Family planning Insulin resistance Morbid obesity with BMI of 40.0-44.9, adult ([facility]) Negative test On Depo-Provera for [...] nursing note reviewed. Exam conducted with a topstitcher lockstitch present. Vitals: Estimated body mass index is [...] Carrie Payan DO documented in this encounter [facility] 09-25-2024 History of Presen [...] Morbid obesity with BMI of 40.0-44.9, adult ([facility]) Negative test On Depo-Provera for contraception HISTORY PAST MEDICAL HISTORY SOCIAL HISTORY Past Medical History: Diagnosis Date Depression screening Encounter for gynecological examination (general) (routine) without abnormal findings Family planning Insulin resistance Morbid obesity with BMI of 40.0-44.9, adult ([facility]) Negative test On Depo-Provera for [...] nursing note reviewed. Exam conducted with a topstitcher lockstitch present. Vitals: Estimated body mass index is [...] Carrie Payan DO documented in this encounter [facility] 2024 History of Presen [...] Morbid obesity with BMI of 40.0-44.9, adult ([facility]) Negative test On Depo-Provera for contraception HISTORY PAST MEDICAL HISTORY SOCIAL HISTORY Past Medical History: Diagnosis Date Depression screening Encounter for gynecological examination (general) (routine) without abnormal findings Family planning Insulin resistance Morbid obesity with BMI of 40.0-44.9, adult ([facility]) Negative test On Depo-Provera for [...] nursing note reviewed. Exam conducted with a topstitcher lockstitch present. Vitals: Estimated body mass index is [...] of: BHAVESH Javier documented in this encounter [facility] 08-14-2024 History of Presen [...] Morbid obesity with BMI of 40.0-44.9, adult ([facility]) Negative test On Depo-Provera for contraception HISTORY PAST MEDICAL HISTORY SOCIAL HISTORY Past Medical History: Diagnosis Date Depression screening Encounter for gynecological examination (general) (routine) without abnormal findings Family planning Insulin resistance Morbid obesity with BMI of 40.0-44.9, adult ([facility]) Negative test On Depo-Provera for [...] nursing note reviewed. Exam conducted with a topstitcher lockstitch present. Vitals: Estimated body mass index is [...] Carrie Payan DO documented in this encounter [facility] 07-17-2024 History of Presen [...] Morbid obesity with BMI of 40.0-44.9, adult ([facility]) Negative test On Depo-Provera for contraception HISTORY PAST MEDICAL HISTORY SOCIAL HISTORY Past Medical History: Diagnosis Date Depression screening Encounter for gynecological examination (general) (routine) without abnormal findings Family planning Insulin resistance Morbid obesity with BMI of 40.0-44.9, adult ([facility]) Negative test On Depo-Provera for [...] nursing note reviewed. Exam conducted with a topstitcher lockstitch present. Vitals: Estimated body mass index is [...] Carrie Payan DO documented in this encounter [facility] 06-17-2024 History of Presen [...] Morbid obesity with BMI of 40.0-44.9, adult ([facility]) Negative test On Depo-Provera for contraception HISTORY PAST MEDICAL HISTORY SOCIAL HISTORY Past Medical History: Diagnosis Date Depression screening Encounter for gynecological examination (general) (routine) without abnormal findings Family planning Insulin resistance Morbid obesity with BMI of 40.0-44.9, adult ([facility]) Negative test On Depo-Provera for [...] nursing note reviewed. Exam conducted with a topstitcher lockstitch present. Vitals: Estimated body mass index is [...] Karla Burns PA-C documented in this encounter [facility] 05-16-2024 History of Presen [...] Morbid obesity with BMI of 40.0-44.9, adult ([facility]) Negative test On Depo-Provera for [...] [facility] Diagnosis External hemorrhoid- Primary External hemorrhoids without mention of complication 34 weeks gestation of Third trimester state, incidental Vaginal irritation Pruritus of genital organs documented in this encounter [facility] Summary Purpose Family History No Family History Records FoundNo Family History Records FoundNo Family History Records Found Advance Directives No Advanced Directives Records FoundNo Advanced Directives Records FoundNo Advanced Directives Records Found Additional Source Comments INFORMATION SOURCE (unrecogn ized section and content) DATE CREATED AUTHOR 04/05/2022 Crystal Rodriguez [facility] DATE CREATED AUTHOR AUTHOR'S ORGANIZ ATION 04/08/2022 [facility] DATE CREATED AUTHOR AUTHOR'S ORGANIZ ATION 11/16/2024 [facility] EPIC Care Teams (unrecognized sec tion and content) Processor Helper Relationship Specialty Start Date End Date Karla Ortega MD [address] [place] [id number] PCP - General Family Medicine 01/24/23 Processor Helper Relationship Specialty Start Date End Date Karla Ortega MD [address] [place] [address] PCP - General Family Medicine 01/24/23 Processor Helper Relationship Specialty Start Date End Date Karla Ortega MD [address] [place] [address] PCP - General Family Medicine 01/24/23 Processor Helper Relationship Specialty Start Date End Date Karla Ortega MD [address] [place] [address] PCP - General Family Medicine 01/24/23 Processor Helper Relationship Specialty Start Date End Date Karla Ortega MD [address] [place] [address] PCP - General Family Medicine 01/24/23 Processor Helper Relationship Specialty Start Date End Date Karla Ortega MD [address] [place] [address] PCP - General Family Medicine 01/24/23 Processor Helper Relationship Specialty Start Date End Date Karla Ortega MD [address] [place] [address] PCP - General Family Medicine 01/24/23 Processor Helper Relationship Specialty Start Date End Date Karla Ortega MD [address] [place] [address] PCP - General Family Medicine 01/24/23 Processor Helper Relationship Specialty Start Date End Date Karla Ortega MD [address] [place] [address] PCP - General Family Medicine 01/24/23 Processor Helper Relationship Specialty Start Date End Date Karla Ortega MD [address] [place] [address] PCP - General Family Medicine 01/24/23 Processor Helper Relationship Specialty Start Date End Date Karla Ortega MD [address] [place] [address] PCP - General Family Medicine 01/24/23 Reason for Visit (unrecogniz ed section and content) Reason Comments Routine Visit Reason Comments Amenorrhea Reason Comments vaginal irritation Routine Visit FOR RECORDS PERTAINING TO PATIENTS [...] BE BASED ON THE PRIMARY CLINICAL RECORDS. [facility] [employer] [facility]. provides no warranty or guarantee of the accuracy or completeness of information in this document.
[2024-11-17 19:09] VITALS: BP 115/67; PULSE 97
== END 2024-11-17 19:45 | disposition home or self-care (01) ==
LOC: FBCO 18:59 → FBC 19:03
PROVIDERS: Visit Provider Obstetrics & Gynecology
DX: O36.63X0 Maternal care for excessive fetal growth, third trimester, not applicable or unspecified (principal); Z3A.35 35 weeks gestation of pregnancy
CPT/HCPCS: 59025

== ENCOUNTER 2024-11-20 10:53 | Outpatient (OUT) | payer BC, SELFPAY ==
--- NOTE | 2024-11-20 | US_ITS ---
[address] [address] Patient Name: KAREEN FORMAN MRN: [id number] date: 1995 Sex: F Assigned Patient Location: [facility] Current [place] Location[place] [facility] Accession/Order Number: [id number] Exam Date: 11/20/2024 11:45 Report Date: 11/20/2024 11:46 At the request of: CARRIE ARREDONDO DO Procedure: US OB BPP w non-stress BPP. Reason for exam: Excessive growth. COMPARISON: BPP 10/23/2024 TECHNIQUE: Transabdominal imaging of the gravid uterus was obtained. 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 JENS measures 14.2cm. heart rate 134 bpm. US/US OB BPP w non-stress Impression: BPP 8 out of 8. Impression dictated by: Claudio Schuster Jr., D.O.11/20/2024 11:46 AM Dictation Location: [place] [address] Electronically authenticated by: [id number] Y Date: 11/20/2024 11:46
--- OUTSIDE RECORDS SUMMARY | 2024-11-20 11:15 | XMS_ITS | CCD ---
Author Organization [facility] Care Team Providers Care Ad Taker Name Role Phone DR CARRIE PAYAN Primary Care Unavailable ANGÉLICA NARAYANAN Attending Unavailable ANGÉLICA NARAYANAN Consulting Unavailable ANGÉLICA NARAYANAN Admitting Unavailable MARQUIS HENSON Consulting Unavailable ORA, DR BUTLER Consulting Unavailable ORA, DR BUTLER Primary Care Unavailable DR CARRIE PAYAN Admitting Unavailable ORA, DR BUTLER Attending Unavailable Karla Ortega MD Primary Care Provider [phone] CARRIE PAYAN Attending Unavailable ORA, CARRIE Attending Unavailable GRANT, KARLA Attending Unavailable GRANT, KARLA Attending Unavailable GRANTKARLA Attending Unavailable GRANTKARLA ANDERS Attending Unavailable ORA, CARRIE Attending Unavailable ORA, [...] OB BPP W NON-STRESS on 11-13-2024 [place] [address] Ultrasound Report Signed Patient: KAREEN FORMAN MR#: [id number] : 1995 Acct:[id number] Age/Sex: 29 / F ADM Date: 11/13/24 Loc: [facility] 250-[address]: Carrie Payan D.O. Ordering Physician: Carrie Paayn D.O. Date of Service: 11/13/24 Procedure(s): US OB BPP w non-stress Accession Number(s): [id number] cc: KARLA ORTEGA; Carrie Payan D.O. [place] [address] Patient Name: KAREEN FORMAN MRN: [id number] date: 1995 Sex: F Assigned Patient Location: Current Patient Location: US Accession/Order Number: [id number] Exam Date: 11/13/2024 11:58 Report Date: 11/13/2024 11:59 At the request of: CARRIE PAYAN DO Procedure: US OB BPP w non-stress BIOPHYSICAL PROFILE: CLINICAL INFORMATION: Excessive growth COMPARISON: 11/06/2024 There is a single live intrauterine gestation in cephalic presentation. The reported gestational age is 34 weeks 6 days. The heart rate [id number] beats per minute. FINDINGS: TONE: 1 or [...] Bita Mcdonough M.D.11/13/2024 11:59 AM Dictation Location: [place] [address] Electronically authenticated by: [id number] Y Date: 11/13/2024 11:59 Dictated By: Bita Mcdonough M.D. Signed By: 11/13/24 1202 DD/ 2919 TD/TT: Retail Mortgage Banker: [facility] Radiology, Radiologist, - 11/13/2024 [place] [address] Ultrasound Report Signed Patient: KAREEN FORMAN MR#: [id number] : 1995 Acct:[id number] Age/Sex: 29 / F ADM Date: 11/13/24 Loc: [facility] [address]: Carrie Payan D.O. Ordering Physician: Carrie Payan D.O. Date of Service: 11/13/24 Procedure(s): US OB BPP w non-stress Accession Number(s): [id number] cc: KARLA ORTEGA; Carrie Payan D.O. The [place] [address] Patient Name: KAREEN FORMAN MRN: [facility]:[id number] date: 1995 Sex: F Assigned Patient Location: Current Patient Location: Accession/Order Number: [id number] Exam Date: 11/13/2024 11:58 Report Date: 11/13/2024 11:59 At the request of: CARRIE PAYAN DO Procedure: US OB BPP w non-stress BIOPHYSICAL PROFILE: CLINICAL INFORMATION: Excessive growth COMPARISON: 11/06/2024 There is a single live intrauterine gestation in cephalic presentation. The reported gestational age is 34 weeks 6 days. The heart rate [id number] beats per minute. FINDINGS: TONE: 1 or [...] Bita Mcdonough M.D.11/13/2024 11:59 AM Dictation Location: [place] [address] Electronically authenticated by: [id number] Y Date: 11/13/2024 11:59 Dictated By: Bita Mcdonough M.D. Signed By: 11/13/24 1202 DD/ 1159 TD/TT: Retail Mortgage Banker: [facility] Radiology Study observation (narrative) [facility] US OB BPP W NON-STRESS Ordered By: Radiologist Radiology on 11-13-2024 [facility] [employer] Work Phone: Urinalysis macro (dipstick) panel (U)on 11-13-2024 Bilirubin, UA Negative Negative - 4(70) +++ mg/dL [facility] Blood, UA Negative Negative - 50 Roberto/mcL [facility] Clarity, UA Clear [facility] [employer] re Color, UA Yellow [facility] [employer] Glucose, UA Negative Negative - 1999(110) ++++ mg/dL [facility] Interpretation and review of laboratory results Abnormal [facility] Ketones, UA Negative Negative - 160(16) ++++ mg/dL [facility] Leukocytes, UA Positive Negative - 500+++ Christian/mcL [facility] Comment on above: small Nitrite, UA Negative Negative - Positive [facility] pH, UA 6.5 5 - 9 [facility] [employer] Protein, UA Negative Negative - 1999(20) ++++ mg/dL [facility] Spec Grav, UA 1.02 1 - 1.03 [facility] Urobilinogen, UA 0.2 0.2 - 12 mg/dL [facility] Urinalysis macro (dipstick) panel (U)on 11-06-2024 Bilirubin, UA Negative Negative - 4(70) +++ mg/dL [facility] Blood, UA Negative Negative - 50 Roberto/mcL [facility] Clarity, UA Clear [facility] re Color, UA Yellow [facility] Glucose, UA Negative Negative - 1999(110) ++++ mg/dL [facility] Interpretation and review of laboratory results Abnormal [facility] Ketones, UA Negative Negative - 160(16) ++++ mg/dL [facility] Leukocytes, UA Trace Negative - 500+++ Christian/mcL [facility] Nitrite, UA Negative Negative - Positive [facility] pH, UA 6.5 5 - 9 [facility] Protein, UA Negative Negative - 1999(20) ++++ mg/dL [facility] Spec Grav, UA 1.025 1 - 1.03 [facility] care Urobilinogen, UA 2.0 0.2 - 12 mg/dL [facility] US OB BPP W NON-STRESS on 10-31-2024 [place] [address] Ultrasound Report Signed Patient: KAREEN FORMAN MR#: [id number] : 1995 Acct:[id number] Age/Sex: 29 / F ADM Date: 10/30/24 Loc: US Attending Dr: Carrie Payan D.O. Ordering Physician: Carrie Payan D.O. Date of Service: 10/30/24 Procedure(s): US OB BPP w non-stress Accession Number(s): [id number] cc: KARLA ORTEGA; Carrie Payan D.O. The [place] [address] Patient Name: KAREEN FORMAN MRN: [facility]:[id number] date: 1995 Sex: F Assigned Patient Location: [facility] Current Patient Location: Accession/Order Number: [id number] Exam Date: 10/31/2024 10:24 Report Date: 10/31/2024 10:25 At the request of: CARRIE PAYAN DO Procedure: US OB BPP w non-stress BIOPHYSICAL PROFILE: CLINICAL INFORMATION: EXCESSIVE GROWTH AFFECTING O36.60X0 COMPARISON: 10/23/2024 There is a single live intrauterine gestation in cephalic presentation. Reported age is 32 weeks 6 days. The heart rate [id number] ( beats per minute. FINDINGS: TONE: 1 [...] Bita Mcdonough M.D.10/31/2024 10:25 AM Dictation Location: [place] [address] Electronically authenticated by: [id number] Y Date: 10/31/2024 10:25 Dictated By: Bita Mcdonough M.D. Signed By: 10/31/24 1027 DD/ 1025 TD/TT: Retail Mortgage Banker: [facility] Radiology, Radiologist, MD - 10/31/2024 [place] [address] Ultrasound Report Signed Patient: KAREEN FORMAN MR#: [id number] : 1995 Acct:[id number] Age/Sex: 29 / F ADM Date: 10/30/24 Loc: Attending Dr: Carrie Payan D.O. Ordering Physician: Carrie Payan D.O. Date of Service: 10/30/24 Procedure(s): US OB BPP w non-stress Accession Number(s): [id number] cc: DANIEL ORTEGA Corey D.O. The [address] [address] Patient Name: KAREEN FORMAN MRN: [facility]:[id number] date: 1995 Sex: F Assigned Patient Location: [facility] Current Patient Location: Accession/Order Number: [id number] Exam Date: 10/31/2024 10:24 Report Date: 10/31/2024 10:25 At the request of: CARRIE PAYAN DO Procedure: US OB BPP w non-stress BIOPHYSICAL PROFILE: CLINICAL INFORMATION: EXCESSIVE GROWTH AFFECTING O36.60X0 COMPARISON: 10/23/2024 There is a single live intrauterine gestation in cephalic presentation. Reported age is 32 weeks 6 days. The heart rate [id number] ( beats per minute. FINDINGS: TONE: 1 [...] Bita Mcdonough M.D.10/31/2024 10:25 AM Dictation Location: [employer] Electronically authenticated by: [id number] Y Date: 10/31/2024 10:25 Dictated By: Bita Mcdonough M.D. Signed By: 10/31/24 1027 DD/ 1025 TD/TT: Retail Mortgage Banker: [facility] Radiology Study observation (narrative) [facility] US OB BPP W NON-STRESS Ordered By: Radiologist Radiology on 10-31-2024 [facility] [employer] Work Phone: US OB BPP W NON-STRESS on 10-23-2024 [place] [address] Ultrasound Report Signed Patient: KAREEN FORMAN MR#: [id number] : 1995 Acct:[id number] Age/Sex: 29 / F ADM Date: 10/23/24 Loc: US Attending Dr: Carrie Payan D.O. Ordering Physician: Carrie Payan D.O. Date of Service: 10/23/24 Procedure(s): US OB BPP w non-stress Accession Number(s): [id number] cc: KARLA ORTEGA; Carrie Payan D.O. The [address] [id number] Patient Name: KAREEN FORMAN MRN: [facility]:[id number] date: 1995 Sex: F Assigned Patient Location: [facility] Current Patient Location: US Accession/Order Number: [id number] Exam Date: 10/23/2024 13:18 Report Date: 10/23/2024 22:17 At the request of: CARRIE PAYAN DO Procedure: US OB BPP w non-stress BPP. Reason for exam: Excessive growth. COMPARISON: BPP 10/16/2024. TECHNIQUE: Transabdominal imaging of the gravid uterus was obtained. FINDINGS: Associate Professor Of Philosophy reports the BPP is 8 out of 8. JENS measures 13.1 cm. heart rate 161 bpm. US/US OB BPP w non-stress Impression: BPP 8 out of 8. Correlation with NST is recommended. Impression dictated by: Claudio Schuster Jr., D.O.10/23/2024 10:17 PM Dictation Location: [place] [address] Electronically authenticated by: [id number] Y Date: 10/23/2024 22:17 Dictated By: Claudio Schuster M.D. Signed By: 10/23/242218 DD/ 16 TD/TT: Retail Mortgage Banker: [facility] Radiology, Radiologist, - 10/23/2024 [place] [address] Ultrasound Report Signed Patient: KAREEN FORMAN MR#: [id number] : 1995 Acct:[id number] Age/Sex: 29 / F ADM Date: 10/23/24 Loc: US Attending Dr: Carrie Payan D.O. Ordering Physician: Carrie Payan D.O. Date of Service: 10/23/24 Procedure(s): US OB BPP w non-stress Accession Number(s): [id number] cc: KARLA ORTEGA; Carrie Payan D.O. The [place] [address] Patient Name: KAREEN FORMAN MRN: [id number] date: 1995 Sex: F Assigned Patient Location: [facility] Current Patient Location: Accession/Order Number: [id number] Exam Date: 10/23/2024 13:18 Report Date: 10/23/2024 22:17 At the request of: CARRIE PAYAN DO Procedure: US OB BPP w non-stress BPP. Reason for exam: Excessive growth. COMPARISON: BPP 10/16/2024. TECHNIQUE: Transabdominal imaging of the gravid uterus was obtained. FINDINGS: Associate Professor Of Philosophy reports the BPP is 8 out of 8. JENS measures 13.1 cm. heart rate 161 bpm. US/US OB BPP w non-stress Impression: BPP 8 out of 8. Correlation with NST is recommended. Impression dictated by: Claudio Schuster Jr., D.O.10/23/2024 10:17 PM Dictation Location: [place] [address] Electronically authenticated by: [id number] Y Date: 10/23/2024 22:17 Dictated By: Claudio Schuster M.D. Signed By: 10/23/242218 DD/ 16 TD/TT: Retail Mortgage Banker: [facility] Radiology Study observation (narrative) [facility] US OB BPP W NON-STRESS Ordered By: Radiologist Radiology on 10-23-2024 [facility] [employer] Work Phone: Urinalysis macro (dipstick) panel (U)on 10-23-2024 Bilirubin, UA Negative Negative - 4(70) +++ mg/dL [facility] Blood, UA Negative Negative - 50 Roberto/mcL [facility] Clarity, UA Clear [facility] re Color, UA Yellow [facility] e Glucose, UA Negative Negative - 2000(110) ++++ mg/dL [facility] Interpretation and review of laboratory results Abnormal [facility] Ketones, UA Negative Negative - 160(16) ++++ mg/dL [facility] Leukocytes, UA Trace Negative - 500+++ Christian/mcL [facility] Nitrite, UA Negative Negative - Positive [facility] pH, UA 6.5 5 - 9 [facility] Protein, UA Negative Negative - 1999(20) ++++ mg/dL [facility] Spec Grav, UA 1.025 1 - 1.03 [facility] care Urobilinogen, UA 1.0 0.2 - 12 mg/dL [facility] e US OB BPP W NON-STRESS on 10-16-2024 [place] [address] Ultrasound Report Signed Patient: KAREEN FORMAN MR#: [id number] : 1995 Acct:[id number] Age/Sex: 29 / F ADM Date: 10/16/24 Loc: US Attending Dr: Carrie Payan D.O. Ordering Physician: Carrie Payan D.O. Date of Service: 10/16/24 Procedure(s): US OB BPP w non-stress Accession Number(s): [id number] cc: KARLA ORTEGA; Carrie Payan D.O. [place] [address] Patient Name: KAREEN FORMAN MRN: [id number] date: 1995 Sex: F Assigned Patient Location: US Current Patient Location: Accession/Order Number: [id number] Exam Date: 10/16/2024 13:57 Report Date: 10/16/2024 [...] Signed By: 10/16/24 1544 DD/ 154 TD/TT: Retail Mortgage Banker: [facility] Radiology, Radiologist, - 10/16/2024 [place] [address] Ultrasound Report Signed Patient: KAREEN FORMAN MR#: [id number] : 1995 Acct:[id number] Age/Sex: 29 / F ADM Date: 10/16/24 Loc: US Attending Dr: Carrie Payan D.O. Ordering Physician: Carrie Payan D.O. Date of Service: 10/16/24 Procedure(s): US OB BPP w non-stress Accession Number(s): [id number] cc: KARLA ORTEGA; Carrie Payan D.O. The [place] [address] Patient Name: KAREEN FORMAN MRN: [facility]:[id number] date: 1995 Sex: F Assigned Patient Location: US Current Patient Location: Accession/Order Number: [id number] Exam Date: 10/16/2024 13:57 Report Date: 10/16/2024 [...] Signed By: 10/16/24 1544 DD/ 1541 TD/TT: Retail Mortgage Banker: [facility] Radiology Study observation (narrative) [facility] US OB BPP W NON-STRESS Ordered By: Radiologist Radiology on 10-16-2024 [facility] [employer] Work Phone: US OB FOLLOW UP [...] II, MD, PHD at 10-Oct-2024 07:43:20 AM [facility] Normal Not Available Comment on above: Order Comment: US OB SCAN FOR GROWTH Estimated Date of Delivery: 12/19/24 Gestational Age as of 09/25/2024: 27w6d Urinalysis macro (dipstick) panel (U)on 10-09-2024 Bilirubin, UA Negative Negative - 4(70) +++ mg/dL [facility] Blood, UA Negative Negative - 50 Roberto/mcL [facility] Clarity, UA Clear [facility] re Color, UA Yellow [facility] Glucose, UA Positive Negative - 1999(110) ++++ mg/dL [facility] Comment on above: 100 Interpretation and review of laboratory results Abnormal [facility] Ketones, UA Positive Negative - 160(16) ++++ mg/dL [facility] Comment on above: 15 Leukocytes, UA Negative Negative - 500+++ Christian/mcL [facility] Nitrite, UA Negative Negative - Positive [facility] pH, UA 7 5 - 9 [facility] Protein, UA Trace Negative - 1999(20) ++++ mg/dL [facility] Spec Grav, UA 1.025 1 - 1.03 [facility] Urobilinogen, UA 0.2 0.2 - 12 mg/dL [facility] GLUCOSE TOLERANCE 3 HOURon 0 10-07-2024 GLUCOSE TOLERANCE 3 HOUR mg/dL [facility] Comment on above: GLU FAST 83 (<95) Co l: 10/07/24 0909 GLU 1HR 163 (<180) Col: 10/07/24 1012 GLU 2HR 146 (<155) Col: 10/07/24 1112 GLU 3HR 83 (<140) Col: 10/07/24 1212 [facility] Urinalysis macro (dipstick) panel (U)on 09-25-2024 Bilirubin, UA Negative Negative - 4(70) +++ mg/dL [facility] Blood, UA Negative Negative - 50 Roberto/mcL [facility] Clarity, UA Clear [facility] re Color, UA Yellow [facility] Glucose, UA Negative Negative - 1999(110) ++++ mg/dL [facility] Interpretation and review of laboratory results Abnormal [facility] Ketones, UA Negative Negative - 160(16) ++++ mg/dL [facility] Leukocytes, UA Positive Negative - 500+++ Christian/mcL [facility] Comment on above: small Nitrite, UA Negative Negative - Positive [facility] pH, UA 8.5 5 - 9 [facility] Protein, UA Negative Negative - 1999(20) ++++ mg/dL [facility] Spec Grav, UA 1.02 1 - 1.03 [facility] Urobilinogen, UA 1.0 0.2 - 12 mg/dL [facility] Urinalysis macro (dipstick) panel (U)on 2024 Bilirubin, UA Negative Negative - 4(70) +++ mg/dL [facility] Blood, UA Negative Negative - 50 Roberto/mcL [facility] Healthcare Clarity, UA Clear [facility] Color, UA Yellow [facility] Glucose, UA Negative Negative - 1999(110) ++++ mg/dL [facility] Interpretation and review of laboratory results Abnormal [facility] Ketones, UA Negative Negative - 160(16) ++++ mg/dL [facility] Leukocytes, UA Moderate Negative - 500+++ Christian/mcL [facility] Healthcare Nitrite, UA Positive Negative - Positive [facility] pH, UA 7 5 - 9 [facility] Protein, UA Positive Negative - 1999(20) ++++ mg/dL [facility] Comment on above: 100 Spec Grav, UA 1.02 1 - 1.03 [facility] Urobilinogen, UA 1.0 0.2 - 12 mg/dL [facility] Urinalysis macro (dipstick) panel (U)on 08-14-2024 Bilirubin, UA Negative Negative - 4(70) +++ mg/dL [facility] Blood, UA Negative Negative - 50 Roberto/mcL [facility] Healthcare Clarity, UA Clear [facility] re Color, UA Yellow [facility] Glucose, UA Negative Negative - 1999(110) ++++ mg/dL [facility] Interpretation and review of laboratory results Abnormal [facility] Ketones, UA Negative Negative - 160(16) ++++ mg/dL [facility] Leukocytes, UA Negative Negative - 500+++ Christian/mcL [facility] Nitrite, UA Negative Negative - Positive [facility] pH, UA 5.5 5 - 9 [facility] Protein, UA Negative Negative - 1999(20) ++++ mg/dL [facility] Spec Grav, UA 1.02 1 - 1.03 [facility] Urobilinogen, UA 1.0 0.2 - 12 mg/dL [facility] ALL CBC WITH AUTO DIFFon BASOPHILS ABSOLUTE AUTO 0 [facility] Basophils/100 WBC (Bld) 0.3 % 0.2 - 2.0 % [facility] Eosinophils/100 WBC (Bld) 0.9 % 0.9 - 7.0 % [facility] Erythrocyte distribution width (RBC) [Ratio] 14.8 % 11.0 - 15.0 % [facility] Hematocrit (Bld) [Volume fraction] 36.3 % 36.0 - 48.0 % [facility] Hemoglobin (Bld) [Mass/Vol] 11.9 g/dL Low 12.0 - 16.0 g/dL [facility] IMMATURE GRANULOCYTES ABS AUTO 0.04 High [facility] Immature granulocytes/100 WBC (Bld) 0.4 % 0.0 - 0.5 % [facility] Interpretation and review of laboratory results Abnormal [facility] LYMPHOCYTES ABSOLUTE AUTO 1.6 [facility] Lymphocytes/100 WBC (Bld) 15 % Low 20.5 - 60.0 % [facility] MCH (RBC) [Entitic mass] 27.2 pg 26.7 - 34.0 pg [facility] MCHC (RBC) [Mass/Vol] 32.8 g/dL 29.9 - 35.2 g/dL [facility] MCV (RBC) [Entitic vol] 83.1 fL 81.0 - 99.0 fL [facility] MONOCYTES ABSOLUTE AUTO 0.8 [facility] Monocytes/100 WBC (Bld) 7.4 % 1.7 - 12.0 % [facility] NEUTROPHILS ABSOLUTE AUTO 7.8 High [facility] Neutrophils/100 WBC (Bld) 76 % High 43.0 - 75.0 % [facility] Platelet mean volume (Bld) [Entitic vol] 9.2 fL Low 9.5 - 13.5 fL [facility] EO # 0.1 [facility] e TB PLT 322 [facility] e [facility] RBC 4.37 [facility] TB WBC 10.3 [facility] GLUCOSE 1 HOURon 07-30-2024 Glucose [Mass/Vol] 173 mg/dL High NINF - 13 0 mg/dL [facility] Interpretation and review of laboratory results Abnormal [facility] e RECURRENT VAGINITIS (HTRX)on 07-18-2024 ATOPOBIUM VAGINAE 21.066 Abnormal [facility] ATOPOBIUM VAGINAE Detected Abnormal [facility] althcare BVAB 2,3 (BACTERIAL VAGINOSIS ASSOCIATED BACTERIA 2, 3); MOBILUNCUS SPP 20.228 Abnormal [facility] Healthcare BVAB 2,3 (BACTERIAL VAGINOSIS ASSOCIATED BACTERIA 2, 3); MOBILUNCUS SPP Detected Abnormal [facility] BLANCA ALBICANS, PARAPSILOSIS, TROPICALIS 0 [facility] BLANCA ALBICANS, PARAPSILOSIS, TROPICALIS Not detected [facility] BLANCA GLABRATA 0 [facility]th[facility] BLANCA GLABRATA Not [facility] BLANCA KRUSEI 0 [facility] Healt hcare BLANCA KRUSEI Not [facility] CHLAMYDIA TRACHOMATIS 0 [facility] CHLAMYDIA TRACHOMATIS Not detected [facility] Healthcare ERMB, C; MEFA 26.225 Abnormal [facility] Health care ERMB, C; MEFA Detected Abnormal [facility] care GARDNERELLA VAGINALIS 21.744 Abnormal [facility] GARDNERELLA VAGINALIS Detected Abnormal [facility] Interpretation and review of laboratory results Abnormal [facility] MEGASPHAERA (TYPES 1, 2) 0 [facility] MEGASPHAERA (TYPES 1, 2) Not detected [facility] MYCOPLASMA GENITALIUM 0 [facility] MYCOPLASMA GENITALIUM Not detected [facility] NEISSERIA GONORRHOEAE 0 [facility] NEISSERIA GONORRHOEAE Not detected [facility] TET B, TET M 24.757 Abnormal [facility] Healthc are TET B, TET M Detected Abnormal [facility] are TRICHOMONAS VAGINALIS 0 [facility] TRICHOMONAS VAGINALIS Not detected [facility] Urinalysis macro (dipstick) panel (U)on 07-17-2024 Bilirubin, UA Negative Negative - 4(70) +++ mg/dL [facility] [facility] Blood, UA Negative Negative - 50 Roberto/mcL [facility] Clarity, UA Clear [facility] Color, UA Yellow [facility] Glucose, UA Negative Negative - 1999(110) ++++ mg/dL [facility] Interpretation and review of laboratory results Abnormal [facility] Ketones, UA Positive Negative - 160(16) ++++ mg/dL [facility] Leukocytes, UA Trace Negative - 500+++ Christian/mcL [facility] Nitrite, UA Negative Negative - Positive [facility] pH, UA 5.5 5 - 9 [facility] Protein, UA Trace Negative - 1999(20) ++++ mg/dL [facility] Spec Grav, UA 1.03 1 - 1.03 [facility] Urobilinogen, UA 0.2 0.2 - 12 mg/dL [facility]inalysis macro (dipstick) panel (U)on 06-17-2024 Bilirubin, UA Negative Negative - 4(70) +++ mg/dL [facility] Blood, UA Negative Negative - 50 Roberto/mcL [facility] Clarity, UA Clear [facility] re Color, UA Yellow [facility] Glucose, UA Negative Negative - 1999(110) ++++ mg/dL [facility] Interpretation and review of laboratory results Abnormal [facility] Ketones, UA Negative Negative - 160(16) ++++ mg/dL [facility] Leukocytes, UA Negative Negative - 500+++ Christian/mcL [facility] Nitrite, UA Negative Negative - Positive [facility] pH, UA 6 5 - 9 [facility] e Protein, UA Positive Negative - 1999(20) ++++ mg/dL [facility] Comment on above: 100 Spec Grav, UA 1.03 1 - 1.03 [facility] Urobilinogen, UA 0.2 0.2 - 12 mg/dL [facility] ALL CBC WITH AUTO DIFFon BASOPHILS ABSOLUTE AUTO 0.0 [facility] Basophils/100 WBC (Bld) 0.4 % 0.2 - 2.0 % [facility] Eosinophils/100 WBC (Bld) 1.1 % 0.9 - 7.0 % [facility] Erythrocyte distribution width (RBC) [Ratio] 14.2 % 11.0 - 15.0 % [facility] Hematocrit (Bld) [Volume fraction] 39.3 % 36.0 - 48.0 % [facility] e Hemoglobin (Bld) [Mass/Vol] 12.8 g/dL 12.0 - 16.0 g/dL [facility] IMMATURE GRANULOCYTES ABS AUTO 0.02 [facility] Immature granulocytes/100 WBC (Bld) 0.3 % 0.0 - 0.5 % [facility] Interpretation and review of laboratory results Abnormal [facility] LYMPHOCYTES ABSOLUTE AUTO 1.6 [facility] Lymphocytes/100 WBC (Bld) 21.5 % 20.5 - 60.0 % [facility] MCH (RBC) [Entitic mass] 26.8 pg 26.7 - 34.0 pg [facility] MCHC (RBC) [Mass/Vol] 32.6 g/dL 29.9 - 35.2 g/dL [facility] MCV (RBC) [Entitic vol] 82.2 fL 81.0 - 99.0 fL [facility] MONOCYTES ABSOLUTE AUTO 0.4 [facility] Monocytes/100 WBC (Bld) 5.1 % 1.7 - 12.0 % [facility] NEUTROPHILS ABSOLUTE AUTO 5.3 [facility] Neutrophils/100 WBC (Bld) 71.6 % 43.0 - 75.0 % [facility] Platelet mean volume (Bld) [Entitic vol] 9.2 fL Low 9.5 - 13.5 fL [facility] TBH EO # 0.1 [facility] TBH PLT 324 [facility] TB RBC 4.78 [facility] TB WBC 7.4 [facility] HCG ( test) Ql (U)o n 05-16-2024 Interpretation and review of laboratory results Abnormal [facility] Preg Test, Ur Positive [facility] Health care [facility] Cytology Cervical or vaginal smear or scraping studyOrdered By: Sheila Flowers on 04-07-2024 [facility] Coding Summary.on 04-07-2022 Coding Summary. [id number] h0bWw+PGhlYWQ+LB4CHUQ kK68gbJMbsA9AA6vXKE4F HSVBVVBVKW0PPY0hoUX4N SvoV3WaidVy IcdhyFOcWA11EHm4LPW7t FlvKWivuG3uoFGzD1r4Em UiAR64nS46PSucXWDnChN 3LjZpbjsgbWFy D3wrRvUeaQGzQsl+PHRhY mxlIHdpZHRoPScxMDAlJy JqsBweUG7aDg6aXEIkEEY vbGxhcHNlOiBj p1dpDMCmTZiqZF2ijCzlZ 6AeuRP1QDZwx8l7Yn39lF I+MJJuXTO3pBfkFEmfk73 0YkCeu2ytNJX5 nFXuIMpeNXZ0C73mv0K7I YKlENRnQOZ1eUY8nT8odH zsruxiD5WfsIPeYwE5GRA 1rOWdcO5vhCby gbhtbC1wQwh+L70LIY1GK UQSLC0FKxw1K4HvFvxbfB I+SA03XLCbXJ20aWThlKN nd4qnmAi1KlJl ACReZFF1tFjfTYhqj6MuH WFjU43swTYub6L1BHYahL smaLBjYrYlnJZ2kB1xVFc xvaykv6tlmakn Usgvs0unhy74tP81Q83rP GatMRLgHEF4FDRkHHAxnY ublb1jnJ3dIy5+CEqxg2j si4codHc2VgCp YWPgexHihSznFRB2p8XgG d02U4OrpOyta1FwSfu7gp 52xPLix2H9aXN7MFyjRKB fpK9sGDbyDvN0 CRBuDpXloU82cCLwCCfbN z0crVpmzEwkFL6sIOMdfb ltUMWeqK9vMCCwsURyqBv yVW4cEQExflgb g505VnFrEHH6GUGwiTPcQ 8MxiH3aGjPqBTLsWLRfW9 BbuKUcGZlqO994EOmoReB 5VHAifgKaX2Qr KKStpDzoMsQ2s5M8Ac2Tk 7HkiaugZRQ0BOlsRVJ4Uc P5VyJuGcE6P1NvTbg4DHQ nxNzxKB2sS0Gx GNTajaryfkiwsSK6QQTuM KApjX69bBLgQLukEc6lk3 Y4t308PNKdNIYamS99Ln0 udDogMTBwdCBU iM8hxuqur1kdmadvMqBnF AJuKLu6KPa4DHAfoEjtOy GoAWM7ZcG2PJQ8mDGegV4 rsOoynulriY4e Oyc+P90mcP8zOQF6IUJ6v dpdZLRluqLmIC86VT87D6 RyPjwvdGFibGU+PGRpdiB ibNmrJY4lOaKd q7wkn7ZzSYhoR4CaJYAqQ LmzKiw4DHYiTXA2pLZ7sW 8mVDLyWJfhm8C2uCP8R3E iljEfin4an9bv KKMiBYheO68otLUjx1E1K QSibXX5WYGiuCwiHkSoxX 93Oyc+TIIyaBquv9PtWpq ry9wcy8eefCa7 ZrReEVBovuVfcAyuDEF3g 3CjQk89S50cZHlkFTUoLN KpFAFyMSPstYrenu6uvD5 wIi8+PGNvbCB3 fML9jA7jDCGbXwB6CLbfM 970MeGyzUDlPjube3cph4 fprBn4EuZnTIEhijFfvAc aDDA9j6AoZp63 O49wWQodHSFeBIHoTKRgH KYpaPtuqx7vsK6rVg7+PC 6jf4tqnz50nH30lGH+PHR zHNB3dIyzYJau LOYmzO2rTJzcBtA3UJHzW cAyyN59yCFmIXejKc5dcY qabBuaYU6oVQXvdyslx41 4WcMwg5bjXDMl qWJxDBwrVQN9I41qt6F9X ZTnHSNrGLX5pDH0cX7jhI lnbjogbGVmdDsgdmVydGl vFNnlCXwpW348 IHRvcDsnPlBhdGllbnQgT iTbBOx8L2EcGqm9UFQvqE qcWG5xeCCoDUxvJd7ziRl xrWylVC5vXUIa aqqtc929TdIeq0aeIXSyq VHdBOlrTPV2D95eu2K6CI XiXJHqYBW3pIB7dC9ngLi nbjogbGVmdDsg npUpcPndOSujSCpyM507L HRvcDsnPkJpcnRoIERhdG Q1II20OT69vYWkr3Z4gJE 8G8JpIBHbknfx mwlphZK2KGGaYVNjdO86M a9uvLwwKp7hROUvNUD3EE EndCAyU0XdcL5gMaRfPXE zPQOeN7AjnXPp NPeoM730PEtqMfD3IDOxu lYqR8WbANNpvIdfJqC9h1 X1Kv4IP9M0AF85JD65zGL sa9M1lWH1Z5Jo LZYtzkglyxrtxDD0XRQkL SVqaI78Sy5dbVluWr2rNM KdPSO9MYYchHIjI6OgiX8 yOiAjMDAwMDAw W4CnrIOvFZrwO787USpfE iC5DMGelsQbQ0PeMVOzuU ooKqQ5t1O0Gz8KZIm7UH9 0XG01wHNte2H8 sSX1I3LqRNPtfxsdkselc CJ9SXBqJLVyuH41Rs1mrF kcVn0kBQApOHW5NLCkvNQ eD6FlgM2sXcAf BYNpLGBzU3EclODjTHihV 482GGerFuC4MMQpdoIkE0 WtEUZpcUqlUyF8q6T9Ws7 AKHKeBW84TGC6 yLN1KY46KB57X9EhRkemf GFibGU+PHRhYmxlIHdpZH RoPScxMDAlJyBzdHlsZT0 dVe4tRWUtPHWs gIyrbFTnCzTgk3cgEWYaM JvzOY0dtZaqG0LjdRP8CN Smf2n4Cd93P42uP7VjmQG +GBBkfYG0sYP1 yR0fGsOnHjD0OMxaH631L kEauIRhBdwdn9qjy1yxzQ l6BcU1BLHhjrOtzLacKEQ 3c1KiZr52B08j IHdpZHRoPSIxNSUiIHZhb Xupkq6rwB7qTx0+PGNvbC T3sKX5nS2iFyHjYeQ8EIu kC332AtFokABb Kwlpt2kxk9eaeHb1XnKbQ CNmwrIolZzlSPD5v2GaHj 93H8ThzUmbx3FyLen3qt2 8gGDzu5O6yVY2 M7JvGWNhmnwuqLPzhXayA K9uNLCocetuSRPghW8vDI AvX5y5ThQrTzU6VAoaX0F jruL3WLHvgHBs XRigSMP9O13uh3N5KIKoG SPuINX7mUN9yW6mzHvbet ogbGVmdDsgdmVydGljYWw tKHzjO692EDWf kNwxHYRibK3oHKHxaWNan RvdAN8aPMIyxwgtFxBSXF BQLCBIQUxFWSBOSUNPTEU 3K4MiHlp4QERs yKjwTG6fgTNgUWwoPg4oo GtbxGmtUO6bLDAbbzunGY UpoU4fHHHqfKFbpFwrET8 rOIMtfwcuu421 IdTtBVV8NPPjpEMbH1Oit I1kCkYtTGMnGZFnN9JxhS CkIKhoO668ITatUaZ9NRS wcvCaY5EkYPYh cIphBoJ0e8N7Og3vFS6fA Y1pFMp8US05HW49nTHnf9 G7pEA7O5TeLLTxapqisnz kcEE6VWFdHLBy bN22dOAeVWqwFh2eo6T8m 962MJYsQHKspA80Xu7mcQ lnAWWcaZPToH6kwhwbv5k vcjogIzAwMDAw WWv3ACf7LMSfqOdvWkYeH RY8NbC3BIF2zZEgdY8nnH xbatjfsE7eZvz+MjQgWWV wjyT7G2KkIdc2 WUIvfEczMP3nmUGxRIqrY u9rnKucgQydIN0zQSVeaw dxEIOdjQ5kNSYfmDViiOx gWZ3mSUAmcbue r896QqZcALJ8XIJqlSHkK 2SxaU6jNgXrAAEgAFMsH0 DpnBOsWEfvS635HHwgPsM 8VLAhemRlL6He WHCsaIqdQgO3v5T1Hr0UY L7ujAT1F1DuThf9WQMigD umZS8joOGrOFisMn0vhUx keYcmMD1nREZz fsfqPNFjlA5dPJKjjQIcf PdaTB4mGAQfswpik891Bz HcHTY4FKBxmQKrS0ZmkS6 yOiAjMDAwMDAw X3CyjECpJRwuP592BWmhQ iK7VGRthnTlM3JqQNZitU odYhD6o2Z7Kc0RnGMoWCN iXE82MT71FE07 H9QxMnyzuRYpuAG+PHRhY mxlIHdpZHRoPScxMDAlJy YbiLadPN6sRb0jBEIvUNJ vbGxhcHNlOiBj f3ojAZJfAMxaZP3psIsiK 5FotXY9AHCks9f3Tg02K9 4xF8PvaCA+WIWzbDP5oCL 0zG7nTkEtOaN7 MImrS064SyTiaDZxYoqzj 1ghf8yxcTt1ZbPmTROfyx SsyZycNMG6c3QuHe14L92 sIHdpZHRoPSIy NPUuFCBxrOehof0loS6dO i8+VRJviEL8hFP5cK2cPk XjCoD3EAvoU355MmTkzXJ gXimhG47wI6Qt dXA+UDWtMyr2FEAblWvrJ H2suFZbMVxeRf1jHCX4Io YfAvUiLTbeC3JlVSDbell xwccagJQ3OZDw KFYfoR29Em7zdFtuKb2nL NPbMXN1PQSygSJkC7QhcD 6vAdDnGJMbJOKhH8GrdAR mZVnqT381BMuw VdI9GQTkvmObM4OuLCWbw VxrQyJ0h2C6Us6JnLsbjQ PtUM1xZrNcULx9B3KnYef 6PMXffMlkTN8t sFZwUGsvHy7ckZmpyXuaE H1kXZLjvncbm102QvAab3 ygEUIzzSJcIOijKAG3D73 ws1L5ZLMxNGNv NVY9aXA0pT8hwNydfzhaf GVmdDsgdmVydGljYWwtYW prS538APIhsMczOkWPRyi 6X8GwStg1CHYr uDtvJM7ykPLqMVhoLb3qy AlbrJwiIW0oTZDorllkb3 33WuMhj6srMDKplYGaGSc wYOS7L15uv8X1 TYLrXBXxQLE8wXT4oL7xi GlnbjogbGVmdDsgdmVydG gtJAecUNwlE748VPOggZw xKo9HJrl5C7Kb Hme7KACrnCasWM7cdONkB RtoSd3haMzvcCxbHQ0dQM Xprrjwe133QfSuj5jzIJL wcHQgVGltZXM7 K95gy0X4OUIiQSVzQJY3a HB3oA8ftGptgluhlUMorW wpbqJozBgaXBzvSFyoA15 6IHRvcDsnPlBh eWVyOjwvdGQ+UA09ei77U 0SfRgicHbd9QIBpFIU9rJ B3bK1yNEDiTZrmv3V2qOX 4P2WyffFstj9k b2xs (more content not included)... Normal [facility] XR Ankle 3+ Views Lefton XR [...] M.D. Transcribed by: JENN Technologist: STEVEN Normal [facility] Consent for Treatmenton Consent for Treatment [id number]:127 Normal [facility] Physician Orderon 04-03-2022 Physician Order [id number] 1.00CD:127 Normal [facility] XR ANKLE LT MIN 3 Von 2021 XR ANKLE LT MIN 3 V EXAM: XR ANKLE LT NC N 3 V, XR FOOT LT MIN [...] by: MARQUIS HENSON Date: 2022-03-11 16:04 Normal [facility] PAP ACOG PANEL 2: 21 to 29on 10-24-2021 . . Normal [facility] Comment on above: Performed By: #### [id number] #### [facility] [address] [place] [address] Dr. Aura Griffiths Age Gdln ACOG Testing 21-29 Normal [facility] Comment on above: Performed By: #### [id number] #### [facility] [address] [address] [address] Aura Griffiths DIAGNOSIS: Comment [facility] Comment on above: Result Comment: NEGA TIVE FOR INTRAEPITHELIAL LESION OR MALIGNANCY. Performed By: #### [id number] #### [facility] [address] [address] [address] Aura Griffiths Methodology: Comment [facility] Comment on above: Result Comment: This liquid based ThinPrep(R) pap test was screened with the use of an image guided system. Performed By: #### [id number] #### [facility] [address] [place] [address] Dr. Aura Griffiths Note: Comment Normal [facility] Comment on above: Result Comment: The Pap smear is a screening test designed to aid in the detection of premalignant and malignant conditions of the uterine cervix. It is not a diagnostic procedure and should not be used as the sole means of detecting cervical cancer. Both false-positive and false-negative reports do occur. . Performed By: #### [id number] #### [facility] [address] [place] [address] Dr. Aura Griffiths Performed by: Comment Normal [facility] Comment on above: Result Comment: Radha Trevino, Cotton Weigher (ASCP) Performed By: #### [id number] #### [facility] [address] [place] [address] Dr. Aura Griffiths Reflex Criteria: Comment Normal [facility] Comment on above: Result Comment: The HPV DNA reflex criteria were not met with this specimen result therefore, no HPV testing was performed. . Performed By: #### [id number] #### [facility] [address] [place] [address] Dr. Aura Griffiths Specimen adequacy: Comment Normal [facility] Comment on above: Result Comment: Sati sfactory for evaluation. Endocervical and/or squamous metaplastic cells (endocervical component) are present. Performed By: #### [id number] #### [facility] [address] [place] [address] Dr. Aura Griffiths Vital Signs Date Time Vital Sign Value Performing Clinician Faci lity 11-13-2024 10:40-0400 Body mass index (BMI) [Ratio] 46.17 kg/m2 Karla OSPINA Work Phone: [facility] 11-13-2024 10:40-0400 Body weight 122.02 kg Karla OSPINA Work Phone: [facility] 11-13-2024 10:40-0400 Diastolic blood pressure 80 mm[Hg] Karla OSPINA Work Phone: [facility] 11-13-2024 10:40-0400 Systolic blood pressure 130 mm[Hg] Karla Westport PA Work Phone: [facility] 11-06-2024 14:02-0500 Body mass index (BMI) [Ratio] 45.68 kg/m2 Karla Grant PA Work Phone: [facility] 11-06-2024 14:02-0500 Body weight 120.71 kg Krala Grant PA Work Phone: [facility] 11-06-2024 14:02-0500 Diastolic blood pressure 80 mm[Hg] Karla Grant PA Work Phone: [facility] 11-06-2024 14:02-0500 Systolic blood pressure 126 mm[Hg] Karla Westport PA Work Phone: [facility] 10-23-2024 11:16-0500 Body mass index (BMI) [Ratio] 45.66 kg/m2 Karla Westport PA Work Phone: [facility] 10-23-2024 11:16-0500 Body weight 120.66 kg Karla Westport PA Work Phone: [facility] 10-23-2024 11:16-0500 Diastolic blood pressure 80 mm[Hg] Karla Westport PA Work Phone: [facility] 10-23-2024 11:16-0500 Systolic blood pressure 124 mm[Hg] Karla Grant PA Work Phone: [facility] 10-09-2024 10:43-0500 Body mass index (BMI) [Ratio] 46.17 kg/m2 Carrie Ora DO Work Phone: [facility] 10-09-2024 10:43-0500 Body weight 122.02 kg Carrie Ora DO Work Phone: [facility] 10-09-2024 10:43-0500 Diastolic blood pressure 70 mm[Hg] Carrie Ora DO Work Phone: [facility] 10-09-2024 10:43-0500 Systolic blood pressure 120 mm[Hg] Carrie Ora DO Work Phone: [facility] 09-25-2024 08:58-0500 Body mass index (BMI) [Ratio] 45.49 kg/m2 Carrie Ora DO Work Phone: [facility] 09-25-2024 08:58-0500 Body weight 120.2 kg Carrie Ora DO Work Phone: [facility] 09-25-2024 08:58-0500 Diastolic blood pressure 72 mm[Hg] Carrie Ora DO Work Phone: [facility] 09-25-2024 08:58-0500 Systolic blood pressure 122 mm[Hg] Carrie Ora DO Work Phone: [facility] 2024 09:48-0500 Body mass index (BMI) [Ratio] 44.97 kg/m2 Karla OSPINA Work Phone: [facility] 2024 09:48-0500 Body weight 118.84 kg Karla Grant PA Work Phone: [facility] 2024 09:48-0500 Diastolic blood pressure 70 mm[Hg] Karla Grant PA Work Phone: [facility] 2024 09:48-0500 Systolic blood pressure 120 mm[Hg] Karla Westport PA Work Phone: [facility] 08-14-2024 11:20-0500 Body mass index (BMI) [Ratio] 44.53 kg/m2 Carrie Ora DO Work Phone: [facility] 08-14-2024 11:20-0500 Body weight 117.66 kg Carrie Ora DO Work Phone: [facility] 08-14-2024 11:20-0500 Diastolic blood pressure 82 mm[Hg] Carrie Ora DO Work Phone: [facility] 08-14-2024 11:20-0500 Systolic blood pressure 124 mm[Hg] Carrie Ora DO Work Phone: [facility] 07-17-2024 10:48-0500 Body mass index (BMI) [Ratio] 45.28 kg/m2 Carrie Ora DO Work Phone: [facility] 07-17-2024 10:48-0500 Body weight 119.66 kg Carrie Ora DO Work Phone: [facility] 07-17-2024 10:48-0500 Diastolic blood pressure 70 mm[Hg] Carrie Ora DO Work Phone: [facility] 07-17-2024 10:48-0500 Systolic blood pressure 120 mm[Hg] Carrie Ora DO Work Phone: [facility] 06-17-2024 10:48-0400 Body mass index (BMI) [Ratio] 44.99 kg/m2 Carrie Ora DO Work Phone: [facility] 06-17-2024 10:48-0400 Body weight 118.9 kg Carrie Ora DO Work Phone: [facility] 06-17-2024 10:48-0400 Diastolic blood pressure 70 mm[Hg] Carrie Ora DO Work Phone: [facility] 06-17-2024 10:48-0400 Systolic blood pressure 120 mm[Hg] Carrie Ora DO Work Phone: [facility] 05-16-2024 09:16-0400 Body mass index (BMI) [Ratio] 46 kg/m2 [facility] 05-16-2024 09:16-0400 Body weight 121.56 kg Nom Nurse [facility] 05-16-2024 09:16-0400 Diastolic blood pressure 70 mm[Hg] [facility] 05-16-2024 09:16-0400 Systolic blood pressure 120 mm[Hg] Nom Nurse [facility] Healthcare Encounters Encounter Date Encounter Type Care Provider Facility Start: 11-13-2024 End: 11-13-2024 Lamonte OSPINA Work Phone: [facility] Start: 11-13-2024 End: 11-13-2024 Bamboo flowsheet [...] 2024 Bamboo flowsheet Karla OSPINA Work Phone: [facility] Start: 2024 End: 2024 Bamboo flowsheet Karla OSPINA Work Phone: [facility] Start: 2024 End: 2024 flow sheet Karla OSPINA Work Phone: [facility] Comment on above: 25 weeks gestation o f ; Second trimester ; UTI symptoms Start: 2024 End: 2024 ambulatory KARLA BURNS Not Available Start: 08-14-2024 End: 08-14-2024 Bamboo flowsheet Carrie Ora DO Work Phone: [facility] Start: 08-14-2024 End: 08-14-2024 Bamboo flowsheet Carrie Ora DO Work Phone: [facility] Start: 08-14-2024 End: 08-14-2024 flow sheet Carrie Ora DO Work Phone: [facility] Comment on above: [...] [facility] [address] [place] [address] Carrie Payan, DO [address] [place] [address] [facility] Start: 11-24-2024 End: 11-24-2024 Patient encounter procedure 11/24/2024 9:30 AM EDT Routine [facility] [address] [place] [id number] Carrie Payan, DO [address] [place] [address] [facility] Start: 11-13-2024 End: 11-13-2024 Patient encounter procedure 11/13/2024 10:10 AM EDT Office Visit [facility] [address] [id number] Karla Burns PA [address] [place] [address] Arrived [facility] Comment on above: [...] Routine [facility] [address] [place] [id number] Carrie Payan, DO [address] [place] [address] [facility] Start: 10-09-2024 End: 10-09-2024 Professional / ancillary services management 10/09/2024 10:00 AM EST Ancillary Procedure [facility] [address] [place] [address] [facility] Start: 09-25-2024 End: 09-25-2025 Measurement of glucose 3 hours after glucose challenge for glucose tolerance test Glucose tolerance, 3 hours Lab Routine Elevated glucose tolerance test Expected: 09/25/2024 (Approximate), Expires: 09/25/2025 [facility] Healthcare Comment on above: Expected: [...] Procedure [facility] [address] [place] [address] [facility] Start: 07-17-2024 End: 09-16-2024 Alpha fetoprotein, maternal Alpha fetoprotein, maternal Lab Routine Second trimester Expected: 07/17/2024 (Approximate), Expires: 09/16/2024 [facility] Comment on above: Expected: 07/17/2024 (Approximate), Expires: 09/16/2024 Start: 07-17-2024 End: 07-17-2025 Measurement of glucose 1 hour after glucose challenge for glucose tolerance test GTT, 1 hour Lab Routine History of gestational diabetes Expected: 07/17/2024 (Approximate), Expires: 07/17/2025 [facility] Healthcare Comment on above: Expected: 07/17/2024 (Approximate), Expires: 07/17/2025 Start: 07-17-2024 End: 07-17-2025 US for US OB ANATOMY SINGLE W US OB CERVICAL LENGTH Imaging Routine Screening, , for anatomic survey Expected: 07/17/2024 (Approximate), Expires: 07/17/2025 [facility] Healthcare Comment on above: Expected: 07/17/2024 (Approximate), Expires: 07/17/2025 Start: 07-15-2024 End: 07-15-2024 Patient encounter procedure 07/15/2024 10:50 AM EST Routine [facility] [address] [place] [id number] Carrie Payan, DO [address] [place] [address] [facility] Start: 06-17-2024 End: 06-17-[address]24 Patient encounter [address] [facility] Comment on above: Arrived Start: 05-16-2024 End: 05-16-2025 ABO/Rh ABO/Rh Lab Routine Missed menses Expected: 05/16/2024 (Approximate), Expires: 05/16/2025 [facility] Comment on above: Expected: 05/16/2024 [...] gestational age Expected: 05/16/2024 (Approximate), Expires: 05/16/2025 [facility] Comment on above: Expected: 05/16/2024 (Approximate), Expires: 05/16/2025 Start: 05-16-2024 End: 05-16-2025 US Pelvis transvaginal US OB transvaginal Imaging Routine Missed menses Expected: 05/16/2024 (Approximate), Expires: 05/16/2025 [facility] Comment on above: Expected: 05/16/2024 (Approximate), Expires: 05/16/2025 Bacteria identified in Urine by Culture Urine culture Microbiology Routine Missed menses Ordered: 05/16/2024 [facility] Comment on above: Ordered: 05/16/2024 Bacteria identified in Urine by Culture Urine culture Microbiology Routine UTI symptoms Ordered: 2024 [facility] Work Phone: Comment on above: Ordered: 2024 CBC W Auto Different ial panel - Blood CBC and differential Lab Routine Missed menses Ordered: 05/16/2024 [facility] Comment on above: Ordered: 05/16/2024 CHLAMYDIA TRACHOMATI S (GENITO/STI) CHLAMYDIA TRACHOMATIS (GENITO/STI) Lab Routine Exposure to STD Ordered: 07/17/2024 [facility] Comment on above: Ordered: 07/17/2024 Hemoglobin A1c/Hemoglobin.total in Blood Hemoglobin A1c Lab Routine Missed menses Ordered: 05/16/2024 [facility] Comment on above: Ordered: 05/16/2024 Hepatitis B virus surface Ag [Presence] in Serum or Plasma by Immunoassay Hepatitis B surface antigen Lab Routine Missed menses Ordered: 05/16/2024 [facility] Comment on above: Ordered: 05/16/2024 Hepatitis C virus Ab [Presence] in Serum or Plasma by Immunoassay Hepatitis C antibody Lab Routine Missed menses Ordered: 05/16/2024 [facility] Comment on above: Ordered: 05/16/2024 HIV-1/HIV-2 antigen/antibody combination immunoassay HIV-1 and HIV-2 antibodies Lab Routine Missed menses Ordered: 05/16/2024 [facility] Comment on above: Ordered: 05/16/2024 Neisseria gonorrhoea e DNA [Presence] in Unspecified specimen by XIOMARA with probe detection Neisseria gonorrhea DNA probe, direct Lab Routine Exposure to STD Ordered: 07/17/2024 [facility] Comment on above: Ordered: 07/17/2024 Reagin Ab [Presence] in Serum by RPR RPR Lab Routine Missed menses Ordered: 05/16/2024 [facility] Comment on above: Ordered: 05/16/2024 Rubella antibody, IgG Rubella an tibody, IgG Lab Routine Missed menses Ordered: 05/16/2024 [facility] [facility] Comment on above: Ordered: 05/16/2024 SURESWAB(R) ADVANCED VAGINITIS PLUS, TMA SURESWAB(R) ADVANCED VAGINITIS PLUS, TMA Pathology and Cytology Routine Vaginal discharge Ordered: 07/17/2024 [facility] Work Phone: Comment on above: Ordered: 07/17/2024 Payers Date Payer Category Payer Unknown [id number] 2023 [facility] [id number] 2023 Unknown BCBS BCBS xxxxxx [id number] 2023-Present [phone] [address] [place] [address] [id number] 2023 Unknown [id number] 1997 Unknown [id number] 2.16.840.1.857294.3.579.2.5 93 1997 Unknown [id number] 2.16.840.1.048751.3.579.2.5 93 1997 Unknown [id number] 2.16.840.1.584904.3.579.2.1 259 1997 Unknown [id number] 2.16.840.1.430954.3.579.2.1 259 1997 Unknown [id number] 2.16.840.1.298892.3.579.2.1 259 1997 Unknown [id number] 2.16.840.1.309402.3.579.2.1 259 1997 Unknown [id number] 2.16.840.1.478202.3.579.2.1 259 1997 Unknown [id number] 2.16.840.1.830469.3.579.2.1 259 1997 Unknown [id number] 2.16.840.1.233530.3.579.2.1 259 1997 Unknown [id number] 2.16.840.1.647684.3.579.2.1 259 1997 Unknown [id number] 2.16.840.1.745678.3.579.2.1 259 1997 Unknown [id number] 2.16.840.1.995838.3.579.2.1 259 1997 Unknown [id number] 2.16.840.1.377479.3.579.2.1 259 1997 Unknown [id number] 2.16.840.1.348625.3.579.2.1 259 1959 Private Health Insurance [id number] 1959 Unknown [id number] Social History Date Type Detail Facility Start: 07-31-2023 Tobacco smoking stat [facility] Never smoked tobacco [facility] Start: 07-31-2023 Tobacco use and exposure Smokeless t obacco non-user [facility] Start: 05-16-2024 End: 11-13-2024 Alcoholic beverage intake Lifetime non-drinker (finding) [facility] Start: 07-31-2023 End: 04-07-2024 History of Social function [facility] Start: 07-31-2023 End: 04-07-2024 Tobacco use panel [facility] Start: 03-28-2024 [facility] Start: 1995 Sex assigned at Female [facility] Start: 01-23-2023 Gender identity Identifies as female gender (finding) [facility] Clinical Notes 05-16-2024 to 11-13-2024 BHAVESH [...] obesity with BMI of 40.0-44.9, adult ([facility]) Negative test On Depo-Provera for contraception HISTORY PAST MEDICAL HISTORY SOCIAL HISTORY Past Medical History: Diagnosis Date Depression screening Encounter for gynecological examination (general) (routine) without abnormal findings Family planning Insulin resistance Morbid obesity with BMI of 40.0-44.9, adult ([facility]) Negative test On Depo-Provera for [...] nursing note reviewed. Exam conducted with a insole buffer present. Vitals: Estimated body mass index is [...] of: BHAVESH Javier documented in this encounter [facility] 11-06-2024 History of Presen t illness [...] obesity with BMI of 40.0-44.9, adult ([facility]) Negative test On Depo-Provera for contraception HISTORY PAST MEDICAL HISTORY SOCIAL HISTORY Past Medical History: Diagnosis Date Depression screening Encounter for gynecological examination (general) (routine) without abnormal findings Family planning Insulin resistance Morbid obesity with BMI of 40.0-44.9, adult ([facility]) Negative test On Depo-Provera for [...] nursing note reviewed. Exam conducted with a insole buffer present. Vitals: Estimated body mass index is [...] of: BHAVESH Javier documented in this encounter [facility] 10-23-2024 History of Presen t illness [...] obesity with BMI of 40.0-44.9, adult ([facility]) Negative test On Depo-Provera for contraception HISTORY PAST MEDICAL HISTORY SOCIAL HISTORY Past Medical History: Diagnosis Date Depression screening Encounter for gynecological examination (general) (routine) without abnormal findings Family planning Insulin resistance Morbid obesity with BMI of 40.0-44.9, adult ([facility]) Negative test On Depo-Provera for [...] of: BHAVESH Javier documented in this encounter [facility] 10-09-2024 History of Presen t illness [...] obesity with BMI of 40.0-44.9, adult ([facility]) Negative test On Depo-Provera for contraception HISTORY PAST MEDICAL HISTORY SOCIAL HISTORY Past Medical History: Diagnosis Date Depression screening Encounter for gynecological examination (general) (routine) without abnormal findings Family planning Insulin resistance Morbid obesity with BMI of 40.0-44.9, adult ([facility]) Negative test On Depo-Provera for [...] nursing note reviewed. Exam conducted with a insole buffer present. Vitals: Estimated body mass index is [...] Carrie Payan DO documented in this encounter [facility] 09-25-2024 History of Presen t illness [...] obesity with BMI of 40.0-44.9, adult ([facility]) Negative test On Depo-Provera for contraception HISTORY PAST MEDICAL HISTORY SOCIAL HISTORY Past Medical History: Diagnosis Date Depression screening Encounter for gynecological examination (general) (routine) without abnormal findings Family planning Insulin resistance Morbid obesity with BMI of 40.0-44.9, adult ([facility]) Negative test On Depo-Provera for [...] nursing note reviewed. Exam conducted with a insole buffer present. Vitals: Estimated body mass index is [...] Carrie Payan DO documented in this encounter [facility] 2024 History of Presen t illness [...] obesity with BMI of 40.0-44.9, adult ([facility]) Negative test On Depo-Provera for contraception HISTORY PAST MEDICAL HISTORY SOCIAL HISTORY Past Medical History: Diagnosis Date Depression screening Encounter for gynecological examination (general) (routine) without abnormal findings Family planning Insulin resistance Morbid obesity with BMI of 40.0-44.9, adult ([facility]) Negative test On Depo-Provera for [...] nursing note reviewed. Exam conducted with a insole buffer present. Vitals: Estimated body mass index is [...] of: BHAVESH Javier documented in this encounter [facility] 08-14-2024 History of Presen t illness [...] obesity with BMI of 40.0-44.9, adult ([facility]) Negative test On Depo-Provera for contraception HISTORY PAST MEDICAL HISTORY SOCIAL HISTORY Past Medical History: Diagnosis Date Depression screening Encounter for gynecological examination (general) (routine) without abnormal findings Family planning Insulin resistance Morbid obesity with BMI of 40.0-44.9, adult ([facility]) Negative test On Depo-Provera for [...] nursing note reviewed. Exam conducted with a insole buffer present. Vitals: Estimated body mass index is [...] Carrie Payan DO documented in this encounter [facility] 07-17-2024 History of Presen t illness [...] obesity with BMI of 40.0-44.9, adult ([facility]) Negative test On Depo-Provera for contraception HISTORY PAST MEDICAL HISTORY SOCIAL HISTORY Past Medical History: Diagnosis Date Depression screening Encounter for gynecological examination (general) (routine) without abnormal findings Family planning Insulin resistance Morbid obesity with BMI of 40.0-44.9, adult ([facility]) Negative test On Depo-Provera for [...] nursing note reviewed. Exam conducted with a insole buffer present. Vitals: Estimated body mass index is [...] Carrie Payan DO documented in this encounter [facility] 06-17-2024 History of Presen t illness [...] obesity with BMI of 40.0-44.9, adult ([facility]) Negative test On Depo-Provera for contraception HISTORY PAST MEDICAL HISTORY SOCIAL HISTORY Past Medical History: Diagnosis Date Depression screening Encounter for gynecological examination (general) (routine) without abnormal findings Family planning Insulin resistance Morbid obesity with BMI of 40.0-44.9, adult ([facility]) Negative test On Depo-Provera for [...] nursing note reviewed. Exam conducted with a insole buffer present. Vitals: Estimated body mass index is [...] meat, and stay away from [facility]. Patient has been consulted regarding any [...] Karla Burns PA-C documented in this encounter [facility] 05-16-2024 History of Presen t illness [...] obesity with BMI of 40.0-44.9, adult ([facility]) Negative test On Depo-Provera for [...] meat, and stay away from [facility]. Patient has also been advised to [...] content) DATE CREATED AUTHOR 04/05/2022 Crystal Rodriguez [facility] DATE CREATED AUTHOR AUTHOR'S ORGANIZ ATION 04/08/2022 [facility] DATE CREATED AUTHOR AUTHOR'S ORGANIZ ATION 11/16/2024 [facility] [employer] Care Teams (unrecognized sec tion and content) Ad Taker Relationship Specialty Start Date End Date Karla Ortega MD [address] [place] [id number] PCP - General Family Medicine 01/24/23 Ad Taker Relationship Specialty Start Date End Date Karla Ortega MD [address] [place] [address] PCP - General Family Medicine 01/24/23 Ad Taker Relationship Specialty Start Date End Date Karla Ortega MD [address] [place] [address] PCP - General Family Medicine 01/24/23 Ad Taker Relationship Specialty Start Date End Date Karla Ortega MD [address] [place] [address] PCP - General Family Medicine 01/24/23 Ad Taker Relationship Specialty Start Date End Date Karla Ortega MD [address] [place] [address] PCP - General Family Medicine 01/24/23 Ad Taker Relationship Specialty Start Date End Date Karla Ortega MD [address] [place] [address] PCP - General Family Medicine 01/24/23 Ad Taker Relationship Specialty Start Date End Date Karla Ortega MD [address] [place] [address] PCP - General Family Medicine 01/24/23 Ad Taker Relationship Specialty Start Date End Date Karla Ortega MD [address] [place] [address] PCP - General Family Medicine 01/24/23 Ad Taker Relationship Specialty Start Date End Date Karla Ortega MD [address] [place] [address] PCP - General Family Medicine 01/24/23 Ad Taker Relationship Specialty Start Date End Date Karla Ortega MD [address] [place] [address] PCP - General Family Medicine 01/24/23 Ad Taker Relationship Specialty Start Date End Date Karla Ortega MD [address] [place] [address] PCP - General Family Medicine [...] BE BASED ON THE PRIMARY CLINICAL RECORDS. [facility] [facility]. provides no warranty or guarantee of the accuracy or completeness of information in this document.
[2024-11-20 11:25] VITALS: BP 127/77; PULSE 107
== END 2024-11-20 11:55 | disposition home or self-care (01) ==
LOC: US 10:53 → FBC 10:54
PROVIDERS: Visit Provider Obstetrics & Gynecology
DX: O36.63X0 Maternal care for excessive fetal growth, third trimester, not applicable or unspecified (principal); Z3A.35 35 weeks gestation of pregnancy
CPT/HCPCS: 76818

== ENCOUNTER 2024-11-24 18:57 | Outpatient (OUT) | payer BC, SELFPAY ==
--- OUTSIDE RECORDS SUMMARY | 2024-11-24 19:01 | XMS_ITS | CCD ---
Author Organization [facility] Care Team Providers Care Sub Assembly Team Worker Name Role Phone DR CARRIE PAYAN Primary Care Unavailable ANGÉLICA NARAYANAN Attending Unavailable ANGÉLICA NARAYANAN Consulting Unavailable ANGÉLICA NARAYANAN Admitting Unavailable MARQUIS HENSON Consulting Unavailable ORA, DR BUTLER Consulting Unavailable ORA, DR BUTLER Primary Care Unavailable DR CARRIE PAYAN Admitting Unavailable ORA, DR BUTLER Attending Unavailable Karla Ortega MD Primary Care Provider [phone] CARRIE PAYAN Attending Unavailable ORA, CARRIE Attending Unavailable GRANT, KARLA Attending Unavailable GRANT, KARLA Attending Unavailable GRANTKARLA Attending Unavailable GRANTKARLA ANDERS Attending Unavailable ORA, CARRIE Attending Unavailable ORA, CARRIE Attending Unavailable CARRIE PAYAN Attending Unavailable KARLA BURNS Attending Unavailable Medications Current Medications Medication Drug Class(es) Dates Sig (Normalized) Sig (Original) aspirin 81 mg delayed release oral tablet (19 sources) Platelet Aggregation Inhibitor, Nonsteroidal Anti-inflammatory Drug [...] 7 days. 21 capsule 2024 09/18/2024 Active hydrocortisone 10 mg/ml rectal cream (1 source) Corticosteroid Start: 11-17-2024 Preparation H 1 % cream Indications: External hemorrhoid APPLY TO AFFECTED AREA TWICE A DAY 28.4 g 11/17/2024 Active metoclopramide 5 mg oral tablet (14 [...] Facility US OB BPP W NON-STRESS on 11-20-2024 [place] [address] Ultrasound Report Signed Patient: KAREEN FORMAN MR#: [id number] : 1995 Acct:[id number] Age/Sex: 29 / F ADM Date: 11/20/24 Loc: [facility] 250-[address]: Carrie Payan D.O. Ordering Physician: Carrie Payna D.O. Date of Service: 11/20/24 Procedure(s): US OB BPP w non-stress Accession Number(s): [id number] cc: KARLA ORTEGA; Carrie Payan D.O. [place] [address] Patient Name: KAREEN FORMAN MRN: [facility]:[id number] date: 1995 Sex: F Assigned Patient Location: [facility] Current Patient Location: [facility] Accession/Order Number: [id number] Exam Date: 11/20/2024 11:45 Report Date: 11/20/2024 11:46 At the request of: CARRIE PAYAN DO Procedure: US OB BPP w non-stress BPP. Reason for exam: Excessive growth. COMPARISON: BPP 10/23/2024 TECHNIQUE: Transabdominal imaging of the gravid uterus was obtained. FINDINGS: Supervisor Special Effects reports the BPP is 8 out of 8. JENS measures 14.2cm. heart rate 134 bpm. US/US OB BPP w non-stress Impression: BPP 8 out of 8. Impression dictated by: Jaime Hernandez Jr.OBunny11/20/2024 11:46 AM Dictation Location: [place] [address] Electronically authenticated by: [id number] Y Date: 11/20/2024 11:46 Dictated By: Claudio Schuster M.D. Signed By: 11/20/24 1149 DD/ 1146 TD/TT: Marketing Operations Intern: [facility] Radiology, Radiologist, - 11/20/2024 [place] [address] Ultrasound Report Signed Patient: KAREEN FORMAN MR#: [id number] : 1995 Acct:[id number] Age/Sex: 29 / F ADM Date: 11/20/24 Loc: [facility] 250-[address]: Carrie Payan D.O. Ordering Physician: Carrie Payan D.O. Date of Service: 11/20/24 Procedure(s): US OB BPP w non-stress Accession Number(s): [id number] cc: KARLA ORTEGA; Carrie Payan D.O. The [place] [address] Patient Name: KAREEN FORMAN MRN: [facility]:[id number] date: 1995 Sex: F Assigned Patient Location: [facility] Current Patient Location: [facility] Accession/Order Number: [id number] Exam Date: 11/20/2024 11:45 Report Date: 11/20/2024 11:46 At the request of: CARRIE PAYAN DO Procedure: US OB BPP w non-stress BPP. Reason for exam: Excessive growth. COMPARISON: BPP 10/23/2024 TECHNIQUE: Transabdominal imaging of the gravid uterus was obtained. FINDINGS: Supervisor Special Effects reports the BPP is 8 out of 8. JENS measures 14.2cm. heart rate 134 bpm. US/US OB BPP w non-stress Impression: BPP 8 out of 8. Impression dictated by: Claudio Schuster Jr., D.O.11/20/2024 11:46 AM Dictation Location: [place] [address] Electronically authenticated by: [id number] Y Date: 11/20/2024 11:46 Dictated By: Claudio Schuster M.D. Signed By: 11/20/24 1149 DD/ 1146 TD/TT: Marketing Operations Intern: [facility] Radiology Study observation (narrative) [facility] US OB BPP W NON-STRESS Ordered By: Radiologist Radiology on 11-20-2024 [facility] Work Phone: US OB BPP W NON-STRESS on 11-13-2024 [place] [address] Ultrasound Report Signed Patient: KAREEN FORMAN MR#: [id number] : 1995 Acct:[id number] Age/Sex: 29 / F ADM Date: 11/13/24 Loc: [place] [address]: Carrie Payan D.O. Ordering Physician: Carrie Payan D.O. Date of Service: 11/13/24 Procedure(s): US OB BPP w non-stress Accession Number(s): [id number] cc: KARLA ORTEGA; Carrie Payan D.O. [place] [address] Patient Name: KAREEN FORMAN MRN: [facility]:[id number] date: 1995 Sex: F Assigned Patient Location: Current Patient Location: US Accession/Order Number: [id number] Exam Date: 11/13/2024 11:58 Report Date: 11/13/2024 11:59 At the request of: CARRIE PAYAN DO Procedure: US OB BPP w non-stress BIOPHYSICAL PROFILE: CLINICAL INFORMATION: Excessive growth COMPARISON: 11/06/2024 There is a single live intrauterine gestation in cephalic presentation. The reported gestational age is 34 weeks 6 days. The heart rate beats per minute. FINDINGS: TONE: 1 or [...] Bita Mcdonough M.D.11/13/2024 11:59 AM Dictation Location: [place] [address] Electronically authenticated by: [id number] Y Date: 11/13/2024 11:59 Dictated By: Bita Mcdonough M.D. Signed By: 11/13/24 1202 DD/ 1159 TD/TT: Marketing Operations Intern: [facility] Radiology, Radiologist, MD - 11/13/2024 [place] [address] Ultrasound Report Signed Patient: KAREEN FORMAN MR#: [id number] : 1995 Acct:[id number] Age/Sex: 29 / F ADM Date: 11/13/24 Loc: [place] [address]: Carrie Payan D.O. Ordering Physician: Carrie Payan D.O. Date of Service: 11/13/24 Procedure(s): US OB BPP w non-stress Accession Number(s): [id number] cc: KARLA ORTEGA; Carrie Payan D.O. The [place] [address] Patient Name: KAREEN FORMAN MRN: [facility]:[id number] date: 1995 Sex: F Assigned Patient Location: Current Patient Location: US Accession/Order Number: [id number] Exam Date: 11/13/2024 11:58 Report Date: 11/13/2024 11:59 At the request of: CARRIE PAYAN DO Procedure: US OB BPP w non-stress BIOPHYSICAL PROFILE: CLINICAL INFORMATION: Excessive growth COMPARISON: 11/06/2024 There is a single live intrauterine gestation in cephalic presentation. The reported gestational age is 34 weeks 6 days. The heart rate [id number] beats per minute. FINDINGS: TONE: 1 or [...] Bita Mcdonough M.D.11/13/2024 11:59 AM Dictation Location: [place] [address] Electronically authenticated by: [id number] Y Date: 11/13/2024 11:59 Dictated By: Bita Mcdonough M.D. Signed By: 11/13/24 1202 DD/ 1159 TD/TT: Marketing Operations Intern: [facility] Radiology Study observation (narrative) [facility] OB BPP W NON-STRESS Ordered By: Radiologist Radiology on 11-13-2024 [facility] [employer] Work Phone: Urinalysis macro (dipstick) panel (U)on 11-13-2024 Bilirubin, UA Negative Negative - 4(70) +++ mg/dL [facility] Blood, UA Negative Negative - 50 Roberto/mcL [facility] Clarity, UA [facility] re Color, UA Yellow [facility] Glucose, UA Negative Negative - 1999(110) ++++ mg/dL [facility] Interpretation and review of laboratory results Abnormal [facility] Ketones, UA Negative Negative - 160(16) ++++ mg/dL [facility] Leukocytes, UA Positive Negative - 500+++ Christian/mcL [facility] Comment on above: small Nitrite, UA Negative Negative - Positive [facility] pH, UA 6.5 5 - 9 [facility] e Protein, UA Negative Negative - 1999(20) ++++ mg/dL [facility] Spec Grav, UA 1.02 1 - 1.03 [facility] Urobilinogen, UA 0.2 0.2 - 12 mg/dL [facility] Urinalysis macro (dipstick) panel (U)on 11-06-2024 Bilirubin, UA Negative Negative - 4(70) +++ mg/dL [facility] Blood, UA Negative Negative - 50 Roberto/mcL [facility] Clarity, UA Clear [facility] Health[facility] re Color, UA Yellow [facility] Glucose, UA Negative Negative - 1999(110) ++++ mg/dL [facility] Interpretation and review of laboratory results Abnormal [facility] Ketones, UA Negative Negative - 160(16) ++++ mg/dL [facility] Leukocytes, UA Trace Negative - 500+++ Christian/mcL [facility] Nitrite, UA Negative Negative - Positive [facility] pH, UA 6.5 5 - 9 [facility] e Protein, UA Negative Negative - 1999(20) ++++ mg/dL [facility] Spec Grav, UA 1.025 1 - 1.03 [facility] Urobilinogen, UA 2.0 0.2 - 12 mg/dL [facility] US OB BPP W NON-STRESS on 10-31-2024 [place] [address] Ultrasound Report Signed Patient: KAREEN FORMAN MR#: [id number] : 1995 Acct:[id number] Age/Sex: 29 / F ADM Date: 10/30/24 Loc: Attending Dr: Carrie Payan D.O. Ordering Physician: Carrie Payan D.O. Date of Service: 10/30/24 Procedure(s): US OB BPP w non-stress Accession Number(s): [id number] cc: KARLA ORTEGA; Carrie Payan D.O. The [place] [address] Patient Name: KAREEN FORMAN MRN: [facility]:[id number] date: 1995 Sex: F Assigned Patient Location: [facility] Current Patient Location: Accession/Order Number: [id number] Exam Date: 10/31/2024 10:24 Report Date: 10/31/2024 10:25 At the request of: CARRIE PAYAN DO Procedure: US OB BPP w non-stress BIOPHYSICAL PROFILE: CLINICAL INFORMATION: EXCESSIVE GROWTH AFFECTING O36.60X0 COMPARISON: 10/23/2024 There is a single live intrauterine gestation in cephalic presentation. Reported age is 32 weeks 6 days. The heart rate [id number] ( beats per minute. FINDINGS: TONE: 1 [...] Bita Mcdonough M.D.10/31/2024 10:25 AM Dictation Location: [place] [address] Electronically authenticated by: [id number] Y Date: 10/31/2024 10:25 Dictated By: Bita Mcdonough M.D. Signed By: 10/31/24 1027 DD/ 1025 TD/TT: Marketing Operations Intern: [facility] Radiology, Radiologist, - 10/31/2024 [place] [address] Ultrasound Report Signed Patient: KAREEN FORMAN MR#: [id number] : 1995 Acct:[id number] Age/Sex: 29 / F ADM Date: 10/30/24 Loc: US Attending Dr: Carrie Payan D.O. Ordering Physician: Carrie Payan D.O. Date of Service: 10/30/24 Procedure(s): US OB BPP w non-stress Accession Number(s): [id number] cc: KARLA ORTEGA; Carrie Payan D.O. The [place] [id number] Patient Name: KAREEN FORMAN MRN: [facility]:[id number] date: 1995 Sex: F Assigned Patient Location: [facility] Current Patient Location: Accession/Order Number: [id number] Exam Date: 10/31/2024 10:24 Report Date: 10/31/2024 10:25 At the request of: CARRIE PAYAN DO Procedure: US OB BPP w non-stress BIOPHYSICAL PROFILE: CLINICAL INFORMATION: EXCESSIVE GROWTH AFFECTING O36.60X0 COMPARISON: 10/23/2024 There is a single live intrauterine gestation in cephalic presentation. Reported age is 32 weeks 6 days. The heart rate [id number] ( beats per minute. FINDINGS: TONE: 1 [...] Bita Mcdonough M.D.10/31/2024 10:25 AM Dictation Location: [place] [address] Electronically authenticated by: [id number] Y Date: 10/31/2024 10:25 Dictated By: Bita Mcdonough M.D. Signed By: 10/31/24 1027 DD/ 1025 TD/TT: Marketing Operations Intern: [facility] Radiology Study observation (narrative) [facility] OB BPP W NON-STRESS Ordered By: Radiologist Radiology on 10-31-2024 [facility] [employer] Work Phone: US OB BPP W NON-STRESS on 10-23-2024 The [place] [id number] Ultrasound Report Signed Patient: KAREEN FORMAN MR#: [id number] : 1995 Acct:[id number] Age/Sex: 29 / F ADM Date: 10/23/24 Loc: US Attending Dr: Carrie Payan D.O. Ordering Physician: Carrie Payan D.O. Date of Service: 10/23/24 Procedure(s): US OB BPP w non-stress Accession Number(s): [id number] cc: KARLA ORTEGA; Carrie Payan D.O. The [address] [address] Patient Name: KAREEN FORMAN MRN: [facility]:[id number] date: 1995 Sex: F Assigned Patient Location: [facility] Current Patient Location: US Accession/Order Number: [id number] Exam Date: 10/23/2024 13:18 Report Date: 10/23/2024 22:17 At the request of: CARRIE PAYAN DO Procedure: US OB BPP w non-stress BPP. Reason for exam: Excessive growth. COMPARISON: BPP 10/16/2024. TECHNIQUE: Transabdominal imaging of the gravid uterus was obtained. FINDINGS: Supervisor Special Effects reports the BPP is 8 out of 8. JENS measures 13.1 cm. heart rate 161 bpm. US/US OB BPP w non-stress Impression: BPP 8 out of 8. Correlation with NST is recommended. Impression dictated by: Claudio Schuster Jr., D.O.10/23/2024 10:17 PM Dictation Location: [place] [address] Electronically authenticated by: [id number] Y Date: 10/23/2024 22:17 Dictated By: Claudio Schuster M.D. Signed By: 10/23/242218 DD/ 16 TD/TT: Marketing Operations Intern: [facility] Radiology, Radiologist, MD - 10/23/2024 [place] [address] Ultrasound Report Signed Patient: KAREEN FORMAN MR#: [id number] : 1995 Acct:[id number] Age/Sex: 29 / F ADM Date: 10/23/24 Loc: US Attending Dr: Carrie Payan D.O. Ordering Physician: Carrie Payan D.O. Date of Service: 10/23/24 Procedure(s): US OB BPP w non-stress Accession Number(s): [id number] cc: KARLA ORTEGA; Carrie Payan D.O. [place] [address] Patient Name: KAREEN FORMAN MRN: [facility]:[id number] date: 1995 Sex: F Assigned Patient Location: [facility] Current Patient Location: US Accession/Order Number: [id number] Exam Date: 10/23/2024 13:18 Report Date: 10/23/2024 22:17 At the request of: CARRIE PAYAN DO Procedure: US OB BPP w non-stress BPP. Reason for exam: Excessive growth. COMPARISON: BPP 10/16/2024. TECHNIQUE: Transabdominal imaging of the gravid uterus was obtained. FINDINGS: Supervisor Special Effects reports the BPP is 8 out of 8. JENS measures 13.1 cm. heart rate 161 bpm. US/US OB BPP w non-stress Impression: BPP 8 out of 8. Correlation with NST is recommended. Impression dictated by: Claudio Schuster Jr., D.O.10/23/2024 10:17 PM Dictation Location: [place] [address] Electronically authenticated by: [id number] Y Date: 10/23/2024 22:17 Dictated By: Claudio Schuster M.D. Signed By: 10/23/242218 DD/ 16 TD/TT: Marketing Operations Intern: [facility] Radiology Study observation (narrative) [facility] US OB BPP W NON-STRESS Ordered By: Radiologist Radiology on 10-23-2024 [facility] [employer] Work Phone: Urinalysis macro (dipstick) panel (U)on 10-23-2024 Bilirubin, UA Negative Negative - 4(70) +++ mg/dL [facility] Blood, UA Negative Negative - 50 Roberto/mcL [facility] Clarity, UA Clear [facility] re Color, UA Yellow [facility] Glucose, UA Negative Negative - 1999(110) ++++ mg/dL [facility] Interpretation and review of laboratory results Abnormal [facility] Ketones, UA Negative Negative - 160(16) ++++ mg/dL [facility] Leukocytes, UA Trace Negative - 500+++ Christian/mcL [facility] Nitrite, UA Negative Negative - Positive [facility] pH, UA 6.5 5 - 9 [facility] e Protein, UA Negative Negative - 1999(20) ++++ mg/dL [facility] Spec Grav, UA 1.025 1 - 1.03 [facility] Urobilinogen, UA 1.0 0.2 - 12 mg/dL [facility] US OB BPP W NON-STRESS on 10-16-2024 [place] [address] Ultrasound Report Signed Patient: KAREEN FORMAN MR#: [id number] : 1995 Acct:[id number] Age/Sex: 29 / F ADM Date: 10/16/24 Loc: US Attending Dr: Carrie Payan D.O. Ordering Physician: Carrie Payan D.O. Date of Service: 10/16/24 Procedure(s): US OB BPP w non-stress Accession Number(s): [id number] cc: KARLA ORTEGA; Carrie Payan D.O. The [address] [address] Patient Name: KAREEN FORMAN MRN: [facility]:[id number] date: 1995 Sex: F Assigned Patient Location: US Current Patient Location: Accession/Order Number: [id number] Exam Date: 10/16/2024 13:57 Report Date: 10/16/2024 [...] Signed By: 10/16/24 1544 DD/ 1541 TD/TT: Marketing Operations Intern: [facility] Radiology, Radiologist, MD - 10/16/2024 [place] [address] Ultrasound Report Signed Patient: KAREEN FORMAN MR#: [id number] : 1995 Acct:[id number] Age/Sex: 29 / F ADM Date: 10/16/24 Loc: US Attending Dr: Carrie Payan D.O. Ordering Physician: Carrie Payan D.O. Date of Service: 10/16/24 Procedure(s): US OB BPP w non-stress Accession Number(s): [id number] cc: KARLA ORTEGA; Carrie Payan D.O. The [place] [address] Patient Name: KAREEN FORMAN MRN: [facility]:[id number] date: 1995 Sex: F Assigned Patient Location: US Current Patient Location: Accession/Order Number: [id number] Exam Date: 10/16/2024 13:57 Report Date: 10/16/2024 [...] Signed By: 10/16/24 1544 DD/ 1541 TD/TT: Marketing Operations Intern: [facility] Radiology Study observation (narrative) [facility] US OB BPP W NON-STRESS Ordered By: Radiologist Radiology on 10-16-2024 [facility] [employer] Work Phone: US OB FOLLOW UP TRANSABDOMIN [...] II, MD, PHD at 10-Oct-2024 07:43:20 AM [facility] Normal Not Available Comment on above: Order Comment: US OB SCAN FOR GROWTH Estimated Date of Delivery: 12/19/24 Gestational Age as of 09/25/2024: 27w6d Urinalysis macro (dipstick) panel (U)on 10-09-2024 Bilirubin, UA Negative Negative - 4(70) +++ mg/dL [facility] Blood, UA Negative Negative - 50 Roberto/mcL [facility] Clarity, UA Clear [facility] Health[facility] re Color, UA Yellow [facility] Glucose, UA Positive Negative - 1999(110) ++++ mg/dL [facility] Comment on above: 100 Interpretation and review of laboratory results Abnormal [facility] Ketones, UA Positive Negative - 160(16) ++++ mg/dL [facility] Comment on above: 15 Leukocytes, UA Negative Negative - 500+++ Christian/mcL [facility] Nitrite, UA Negative Negative - Positive [facility] pH, UA 7 5 - 9 [facility] e Protein, UA Trace Negative - 1999(20) ++++ mg/dL [facility] Spec Grav, UA 1.025 1 - 1.03 [facility] Urobilinogen, UA 0.2 0.2 - 12 mg/dL [facility] GLUCOSE TOLERANCE 3 HOURon 0 10-07-2024 GLUCOSE TOLERANCE 3 HOUR mg/dL [facility] Comment on above: GLU FAST 83 (<95) Co l: 10/07/24 0909 GLU 1HR 163 (<180) Col: 10/07/24 1012 GLU 2HR 146 (<155) Col: 10/07/24 1112 GLU 3HR 83 (<140) Col: 10/07/24 1212 [facility] Health[facility] Urinalysis macro (dipstick) panel (U)on 09-25-2024 Bilirubin, UA Negative Negative - 4(70) +++ mg/dL [facility] Blood, UA Negative Negative - 50 Roberto/mcL [facility] Clarity, UA Clear [facility] Health[facility] re Color, UA Yellow [facility] Glucose, UA Negative Negative - 1999(110) ++++ mg/dL [facility] Interpretation and review of laboratory results Abnormal [facility] Ketones, UA Negative Negative - 160(16) ++++ mg/dL [facility] Leukocytes, UA Positive Negative - 500+++ Christian/mcL [facility] Comment on above: small Nitrite, UA Negative Negative - Positive [facility] Healthcare pH, UA 8.5 5 - 9 [facility] Protein, UA Negative Negative - 1999(20) ++++ mg/dL [facility] Healthcare Spec Grav, UA 1.02 1 - 1.03 [facility] Urobilinogen, UA 1.0 0.2 - 12 mg/dL [facility] Urinalysis macro (dipstick) panel (U)on 2024 Bilirubin, UA Negative Negative - 4(70) +++ mg/dL [facility] Healthcare Blood, UA Negative Negative - 50 Roberto/mcL [facility] Healthcare Clarity, UA Clear [facility] Color, UA Yellow [facility] Glucose, UA Negative Negative - 1999(110) ++++ mg/dL [facility] Interpretation and review of laboratory results Abnormal [facility] Ketones, UA Negative Negative - 160(16) ++++ mg/dL [facility] Leukocytes, UA Moderate Negative - 500+++ Christian/mcL [facility] Healthcare Nitrite, UA Positive Negative - Positive [facility] pH, UA 7 5 - 9 [facility] Protein, UA Positive Negative - 1999(20) ++++ mg/dL [facility] Comment on above: 100 Spec Grav, UA 1.02 1 - 1.03 [facility] care Urobilinogen, UA 1.0 0.2 - 12 mg/dL [facility] Urinalysis macro (dipstick) panel (U)on 08-14-2024 Bilirubin, UA Negative Negative - 4(70) +++ mg/dL [facility] Blood, UA Negative Negative - 50 Roberto/mcL [facility] Healthcare Clarity, UA Clear [facility] Color, UA Yellow [facility] Glucose, UA Negative Negative - 1999(110) ++++ mg/dL [facility] Interpretation and review of laboratory results Abnormal [facility] Healthcare Ketones, UA Negative Negative - 160(16) ++++ mg/dL [facility] Healthcare Leukocytes, UA Negative Negative - 500+++ Christian/mcL [facility] Healthcare Nitrite, UA Negative Negative - Positive [facility] pH, UA 5.5 5 - 9 [facility] Protein, UA Negative Negative - 1999(20) ++++ mg/dL [facility] Spec Grav, UA 1.02 1 - 1.03 [facility] Urobilinogen, UA 1.0 0.2 - 12 mg/dL [facility] Health[facility] e ALL CBC WITH AUTO DIFFon BASOPHILS ABSOLUTE AUTO 0 [facility] Basophils/100 WBC (Bld) 0.3 % 0.2 - 2.0 % [facility] Eosinophils/100 WBC (Bld) 0.9 % 0.9 - 7.0 % [facility] Erythrocyte distribution width (RBC) [Ratio] 14.8 % 11.0 - 15.0 % [facility] Hematocrit (Bld) [Volume fraction] 36.3 % 36.0 - 48.0 % [facility] Hemoglobin (Bld) [Mass/Vol] 11.9 g/dL Low 12.0 - 16.0 g/dL [facility] IMMATURE GRANULOCYTES ABS AUTO 0.04 High [facility] Immature granulocytes/100 WBC (Bld) 0.4 % 0.0 - 0.5 % [facility] Interpretation and review of laboratory results Abnormal [facility] LYMPHOCYTES ABSOLUTE AUTO 1.6 [facility] Lymphocytes/100 WBC (Bld) 15 % Low 20.5 - 60.0 % [facility] MCH (RBC) [Entitic mass] 27.2 pg 26.7 - 34.0 pg [facility] MCHC (RBC) [Mass/Vol] 32.8 g/dL 29.9 - 35.2 g/dL [facility] MCV (RBC) [Entitic vol] 83.1 fL 81.0 - 99.0 fL [facility] MONOCYTES ABSOLUTE AUTO 0.8 [facility] Monocytes/100 WBC (Bld) 7.4 % 1.7 - 12.0 % [facility] NEUTROPHILS ABSOLUTE AUTO 7.8 High [facility] Neutrophils/100 WBC (Bld) 76 % High 43.0 - 75.0 % [facility] Platelet mean volume (Bld) [Entitic vol] 9.2 fL Low 9.5 - 13.5 fL [facility] PLT 322 [facility] TB RBC 4.37 [facility] Health[facility] e TB WBC 10.3 [facility] Healthcar e CLINISYNC [facility] Healthcar e GLUCOSE 1 HOURon 07-30-2024 Glucose [Mass/Vol] 173 mg/dL High NINF - 13 0 mg/dL [facility] Interpretation and review of laboratory results Abnormal [facility] RECURRENT VAGINITIS (HTRX)on 07-18-2024 ATOPOBIUM VAGINAE 21.[address] [facility]care ATOPOBIUM VAGINAE Detected Abnormal [facility] BVAB 2,3 (BACTERIAL VAGINOSIS ASSOCIATED BACTERIA 2, 3); MOBILUNCUS SPP 20.228 Abnormal [facility] BVAB 2,3 (BACTERIAL VAGINOSIS ASSOCIATED BACTERIA 2, 3); MOBILUNCUS SPP Detected Abnormal [facility] BLANCA ALBICANS, PARAPSILOSIS, TROPICALIS 0 [facility] BLANCA ALBICANS, PARAPSILOSIS, TROPICALIS Not detected [facility] BLANCA GLABRATA [address] [facility] BLANCA GLABRATA Not detected [facility]alth[facility]USEI [facility] BL[facility]CA KRUSEI Not detected [facility] l[facility]care CHLAMYDIA TRACHOMATIS 0 [facility] CHLAMYDIA TRACHOMATIS Not detected [facility] ERMB, C; MEFA 26.225 Abnormal [facility] care ERMB, C; MEFA Detected Abnormal [facility] GARDNERELLA VAGINALIS 21.744 Abnormal [facility] GARDNERELLA VAGINALIS Detected Abnormal [facility] Interpretation and review of laboratory results Abnormal [facility] MEGASPHAERA (TYPES 1, 2) 0 [facility] MEGASPHAERA (TYPES 1, 2) Not detected [facility] MYCOPLASMA GENITALIUM 0 [facility] MYCOPLASMA GENITALIUM Not detected [facility] NEISSERIA GONORRHOEAE 0 [facility] NEISSERIA GONORRHOEAE Not detected [facility] TET B, TET M 24.757 Abnormal [facility] TET B, TET M Detected Abnormal [facility] are TRICHOMONAS VAGINALIS 0 [facility] TRICHOMONAS VAGINALIS Not detected [facility] e Urinalysis macro (dipstick) panel (U)on 07-17-2024 Bilirubin, UA Negative Negative - 4(70) +++ mg/dL [facility] Blood, UA Negative Negative - 50 Roberto/mcL [facility] Clarity, UA [facility] re Color, UA Yellow [facility] e Glucose, UA Negative Negative - 2000(110) ++++ mg/dL [facility] Interpretation and review of laboratory results Abnormal [facility] Ketones, UA Positive Negative - 160(16) ++++ mg/dL [facility] Leukocytes, UA Trace Negative - 500+++ Christian/mcL [facility] Nitrite, UA Negative Negative - Positive [facility] pH, UA 5.5 5 - 9 [facility] Healthcar e Protein, UA Trace Negative - 1999(20) ++++ mg/dL [facility] Spec Grav, UA 1.03 1 - 1.03 [facility] Urobilinogen, UA 0.2 0.2 - 12 mg/dL [facility] Health[facility] e Urinalysis macro (dipstick) panel (U)on 06-17-2024 Bilirubin, UA Negative Negative - 4(70) +++ mg/dL [facility] Blood, UA Negative Negative - 50 Roberto/mcL [facility] Clarity, UA [facility] re Color, UA Yellow [facility] e Glucose, UA Negative Negative - 1999(110) ++++ mg/dL [facility] Interpretation and review of laboratory results Abnormal [facility] Ketones, UA Negative Negative - 160(16) ++++ mg/dL [facility] Leukocytes, UA Negative Negative - 500+++ Christian/mcL [facility] Nitrite, UA Negative Negative - Positive [facility] pH, UA 6 5 - 9 [facility] e Protein, UA Positive Negative - 1999(20) ++++ mg/dL [facility] Comment on above: 100 Spec Grav, UA 1.03 1 - 1.03 [facility] Urobilinogen, UA 0.2 0.2 - 12 mg/dL [facility] Healthcar e ALL CBC WITH AUTO DIFFon BASOPHILS ABSOLUTE AUTO 0.0 [facility] Basophils/100 WBC (Bld) 0.4 % 0.2 - 2.0 % [facility] Eosinophils/100 WBC (Bld) 1.1 % 0.9 - 7.0 % [facility] Erythrocyte distribution width (RBC) [Ratio] 14.2 % 11.0 - 15.0 % [facility] Hematocrit (Bld) [Volume fraction] 39.3 % 36.0 - 48.0 % [facility] e Hemoglobin (Bld) [Mass/Vol] 12.8 g/dL 12.0 - 16.0 g/dL [facility] IMMATURE GRANULOCYTES ABS AUTO 0.02 [facility] Immature granulocytes/100 WBC (Bld) 0.3 % 0.0 - 0.5 % [facility] Interpretation and review of laboratory results Abnormal [facility] LYMPHOCYTES ABSOLUTE AUTO 1.6 [facility] Lymphocytes/100 WBC (Bld) 21.5 % 20.5 - 60.0 % [facility] MCH (RBC) [Entitic mass] 26.8 pg 26.7 - 34.0 pg [facility] MCHC (RBC) [Mass/Vol] 32.6 g/dL 29.9 - 35.2 g/dL [facility] MCV (RBC) [Entitic vol] 82.2 fL 81.0 - 99.0 fL [facility] MONOCYTES ABSOLUTE AUTO 0.4 [facility] Monocytes/100 WBC (Bld) 5.1 % 1.7 - 12.0 % [facility] NEUTROPHILS ABSOLUTE AUTO 5.3 [facility] Neutrophils/100 WBC (Bld) 71.6 % 43.0 - 75.0 % [facility] Platelet mean volume (Bld) [Entitic vol] 9.2 fL Low 9.5 - 13.5 fL [facility] Healthc are TBH EO # 0.1 [facility] TB PLT 324 [facility] Healthcar e TB RBC 4.78 [facility] TB WBC 7.4 [facility] Healthcar e [facility] Healthcar e HCG ( test) Ql (U)o n 05-16-2024 Interpretation and review of laboratory results Abnormal [facility] Preg Test, Ur Positive [facility] Health care [facility] Healthcar e Cytology Cervical or vaginal smear or scraping studyOrdered By: Sheila Flowers on 04-07-2024 [facility] Coding Summary.on 04-07-2022 Coding Summary. [id number] G h0bWw+PGhlYWQ+NM1ZFJA sZ56nnYMyxB7ZR9zSBY4E ONRLJZCRFB3VJM9gjLF0C JjgH9GxseEt MkhneYDaGK44TZd1YEO0d CyjSSeyyK7szCRbB0o7Mm SiVI82jX70CKjgFMLoWbX 3LjZpbjsgbWFy Q4hsBsVaaFYjUcx+PHRhY mxlIHdpZHRoPScxMDAlJy SjsJzqUN9fJv6fSVVqQPC vbGxhcHNlOiBj v3icZCXnIYfhTL6bpVxvT 7MpkRS1YDIes0m4Qo59bZ I+DWKyIFM2xXcjPZkhx64 7WiBil8kuZDP7 yZYuSUqnAAW5X10ee8B6F AOgPUToNLU4gIH3yC8eaB uhpuwqB2AylTQlDuH7ZHY 2hZFtdN1mbRja zseocE5xVyk+O95SFW6QX YGEOP9OFbu0Y8HfShdjvR I+QP28HTAoHB58jEPheEX ou1blcHp5BzBu CNLyNAQ7lGeqUCkgw8AwF LMjP49ypENfe2J5YEVtdD chlLFwNvKwhCJ4qN2uJKb tvkgsq7arqkwp Mseed8zjyi54gC71Q22jV JplIBScMQT4POSbIAPvqG fasw4phE1nHr7+IJffo6o pi7dglFg4HkQq VEIzvrSdyGlpRAI4n0WiD b55F0TdiAlgo9ZjFhf1mx 59tKAkw9V7lPV9LJzpOXF haI3iJNksWeB7 GZNsZbNelI84yKHnNAguA f0yvMdrwVbpWK4sBMAypa jjTMFufH0nZUJgcWWrzKs iYR7xFKBjadfo y389AlYcQMR6DJLbcXYbR 3QxrU3lKlJcWQNiEBTzJ3 LzpNHwXLevP029FXgtQqN 4STKadaCrR6Ck YHXvbJxtKuE2r0S0Lh5Ic 7EghoeaYQY8EDtoEUN1Kl Z4TjQeNkO5K3LeIzt1NPY rnQblXV5iI3Hf LAGmjprodutvhGJ3FXTiZ TStbO40sZHdZNovIb9ws1 B6h002TCPpOOJooV21Aa5 udDogMTBwdCBU lE0dfglok1yxujokSuIpM DNqDJf2ZUt0UUGlsCvmDg YlCBI0GlE4HKW0zKKijF6 ksFujitobxH7h Oyc+R31wpQ5tQCV8GQR4q wiiHWMrvaLcOA25VF52G2 RyPjwvdGFibGU+PGRpdiB aoOhgOI8xMzQy f5het6FnDLnkN4DkDHTbQ IapWbh8FAUvWNW7xPX6fY 8aFTGfSXpbq9P9eUY6Y0X piyVsuv9br2bt TYAzAXavW60doFXaa7F2C WBmkHL8NLMjcNtpJoXplR 93Oyc+AHLlaCgmz0BbZgl sl1tvu1smrPl7 KfNyGXRwxuJwpUeyWWD3n 2AiRc58M90rCJfbBSExVS ZkIJKgTLPcuNkmsi2mmW0 wIi8+PGNvbCB3 kGV8aH2dZMRaZzN8PQbdX 067BbLmpYJmPzwyi7nyq5 livKj6QbJmIDTyfmHmhSw fNGD4u2ZxBp50 I90uDMrnTRUrHSZgKTTuD AZuyUdfdh2nrD7xGk3+PC 6is4qgwe30xX38mBQ+PHR rALV0uZlvQFwl FQUewZ2cYGteTpW4XZPsY bIygZ24cEBeNXqcYq3zbE bhvPvtAJ0uTGKzrfuun77 0JcAwr3gyNDFm pVFoSRzbFWN1E63es8N6N AXmFUTeECI8gWV3kD4cxG lnbjogbGVmdDsgdmVydGl yQTkdEQrgJ106 IHRvcDsnPlBhdGllbnQgT kWhLHo1D1VoOtg7GISpmD ekJB5pjEGbEKagRb8ahIz aoYywPW8kYFBl stheu217WuYoz8siKNAxm OFnGQhcTBG8O79fu7L1HV JqSFOoQLI6nXV9gS0rqTb nbjogbGVmdDsg woWldOntTMemVJgtS031D HRvcDsnPkJpcnRoIERhdG P1YE35WB08mFKcx0S1pIQ 0E4QpKZVbimvb cruxiMU6KFWpCFLieQ29V h1ocCsgPv1aATZpQFW4PO PnsLCiI3UyrX0hSnHpACB uDBNyZ0ZalPJb EThrF361FSmfSlJ2GIFai mUeZ1GuXBEhgBmrXrP0w3 K6Ja4US9F1OO58DV30aFX wi4F0aSI6B5Ns ZVZmefaxxlfcbKZ3EMDjP SGxnC19Gr0djExuSf9gAP ApEDP2BETppOOsF9GenR3 yOiAjMDAwMDAw Q3LmkUYtQEinQ635YSrsH jB0CGQeqiGxV9ThKCNzjA caTaV2y1J3Uo8TPFe9HP9 8HK04mBKui1K3 eIN6A0KyXNEaxnyqaqask AH1GWXcGIZccI32Jo9ehU ftDu0mTSFzTVZ8DMGbaFC tB2GnsO2bZbCq FSPwZDVyX1GfsZHsYUxqE 831DWdfKzR8LUIwpsTbJ7 GpHBYrdVsxKeA9k4Q7Nw3 BVJSyXG36ZHS1 hOG0HU29WY01J7CcDodtk GFibGU+PHRhYmxlIHdpZH RoPScxMDAlJyBzdHlsZT0 cHd8ySSNbDNWn eGwrlMSoBfHjc1fgTBLtK XtaFG4drAovI8OmcRL4ID Qua2i7Dp82V02aO7OtmUH +BGExcLU9cSZ3 oT8oJyTzRcC3VSdfT075I oJnsDQdPhpoa5tfo2rubC l1OwB2XFNmdgKibWiiGXH 7t6DbTt26B18s IHdpZHRoPSIxNSUiIHZhb Lhpig5ytN2oBa8+PGNvbC Z2kBT2eI0bIdHzIvS5GQz aF059YaZbkOAw Nolxl6ujo7wtlZs9NcYoP TGtogXhiLreTVJ3y9VzIu 04B1LeeGngm1GiOpy3ix3 6lALjh0T3bJI4 V2IuNMZgqkmocUKajIuuS H1nSOLbbevcKDAgtX7fAY HbB0u0BnKbNpD9DPwfY4K sknK8XDXycPAb UTznXWQ1W56uo2K6HHPkN LJjWBX3dFX6dB9bvMbpiy ogbGVmdDsgdmVydGljYWw oFCqgW137NSDt nWsvYNFnhQ8dDVJwgNIcj ZbbHW3qYBZppihdNcSMSK BQLCBIQUxFWSBOSUNPTEU 3S8VnNqr5VHZs xNvvWE6nqBUrHWvwGb2pa QtmoLqjSM5zHGNhohrjCM BdcD7mGRFbiMBkpXhjDQ6 jCDSupsrxu047 GaNgBST6KKCbzWVmT8Hly T7jYkZpTQVsMCSkV7IvuW ZlNWsgA516IKcoFvG4IEZ txoKfG9FaMIHs rDclXiC5l5X3Rg8cOD1fJ S2eUWp4WT72KQ76gBRmq9 W1uGT2L1OhEWHlaegfoao wmXT8AMRyRYWe kO03sCVqZIjoHb0tr3N7x 908MKQkUDKmzX28Yj6iuW pbAOWuyJHNlP4trualg9c vcjogIzAwMDAw UGb7IFv1NAIhzMhmIoCtM ML6LrL5TLP9rEQzhP2pgJ blvvjwsK5fKkq+MjQgWWV dcjG0F5ObSkv2 SGBskCytGI4vrIVaLUqqI r9rxQnqxQxzDW4xGMUqhq lxQQNacO9vWHExjQHmzLs fUV9lLSKukafo p921BnSaPMC9TDNofGJmE 0MzaG0kLtZhFDZrDBKjJ8 UwmFXsVQysE966FNyfBkG 3MJLfjaEbJ3Rn VNXlyLldUiY3q7P2Ag1TQ Z6ohIS6J2OwFmm8HHUlyL jzSI1xpPNvWTjfZv0umXq gmUfzLN4oEGAu uzpuODRkdS3oYNLmiUCyd PumDF6wCSSdwsldm507Oa IeZQN9WABfiXTsN6DaeZ2 yOiAjMDAwMDAw X8DzyOMhOBgpK427LTwiS gQ1APJjixNzN6NfGTFtxQ gwEkZ8z5U7Ag9AcAQiQCN sCV26MF01RM97 M9OaOtllzPLsxML+PHRhY mxlIHdpZHRoPScxMDAlJy WyeQpkCW1eMs3oZPYmJXX vbGxhcHNlOiBj l6fsMGYsYVjfBI6mzVmbG 9UgxRE9ECSwu8q2Gf49C0 5lT4ZmaHD+TMDgvKR3nYR 3dE7vGeMmIpX3 JMuaR775SuBmcPDqXgsjd 9zjm8hdqVy8JeWsRQRhal HcrEeoYKM9y2EjPb79K83 sIHdpZHRoPSIy BJDrIVObzOovae5fuU2zP i8+RTLzkOX9qES0rN4xRp MrNkJ6PVhlM641LbUxaGB wJvdlG04pU7Kf dXA+ZSZbBde3ZMUxjCvdD C3xrPOmDBvxKd4iLBV8Rn XuKfVbSUlzY6DdAWSlzkh ofcotmLC2MXJe EHFalV31Ie1uyLvxGa3cV SXuNUQ4GHOznGXfT7ZqcZ 5vMmHnVTTgHHNfB0QhuIQ xPPlpD355SIsd AcY2JOYaysUwJ8LeJGUfd KpyEkO9i7I2Yr9PtGjuaP LxLO8fPrCyTGq1T4HgCyr 6KFJgsIidDS4p uABiZDvjWp5xbWjhlLjiG F5iKZGwpzwmi672ZvQee3 xqMVQkiYPlNWtiVFM3G44 vi6R7KJQeMYDk CCE3mKS2vO0rhFzfgslqu GVmdDsgdmVydGljYWwtYW lwM256IWJcgSmiRnUGKpe 0R5YwBsw7SGAa tAooWY7ycMErZZxfYs0vl PiqnPmeBX8qZZCxfttgu7 60PfRqt7oyOJQdcRUfAKe vTAW2Z97qj7R2 YVObFTPfQWA3lJD9uR3hc GlnbjogbGVmdDsgdmVydG wkGGrdMSeeO108UAPyjIf zRc7ZZak6T9Ak Dgo9PHVyoLekPK2veKJzB FvkMc4fkQcajStmYW8wXV Rdpkmsr698DoMlo5dyUFK wcHQgVGltZXM7 L66ap5G5TQFfVBFtJSB1u MK2qZ6xeJjpjcnblJKkqQ oasqMzsUzoTLreUVqvH09 6IHRvcDsnPlBh eWVyOjwvdGQ+XC13jy01Q 2KzNftoPou3ZPRbKWZ8fC F8jL9iKBLnMTvzu9F9oQD 6Q5KahaQvbs1m b2xs (more content not included)... Normal [facility] XR Ankle 3+ Views Lefton XR [...] M.D. Transcribed by: JENN Technologist: STEVEN Normal [facility] Consent for Treatmenton Consent for Treatment [id number]:127 Normal [facility] Physician Orderon 04-03-2022 Physician Order [id number]# 1.00CD:[address] [facility] XR ANKLE LT MIN 3 Von 2021 XR ANKLE LT MIN 3 V EXAM: XR ANKLE LT CT N 3 V, XR FOOT LT MIN [...] MARQUIS HENSON Date: 2022-03-11 16:04 Normal [facility] PAP ACOG PANEL 2: 21 to 29on 10-24-2021 . . Normal [facility] Comment on above: Performed By: #### [id number] #### [facility] [address] [address] [address] Aura Griffiths Age Gdln ACOG Testing - Normal [facility] Comment on above: Performed By: #### [id number] #### [facility] [address] [address] [address] Aura Griffiths DIAGNOSIS: Comment [facility] Comment on above: Result Comment: NEGA TIVE FOR INTRAEPITHELIAL LESION OR MALIGNANCY. Performed By: #### [id number] #### [facility] [address] [place] [address] Dr. Aura Griffiths Methodology: Comment Normal [facility] Comment on above: Result Comment: This liquid based ThinPrep(R) pap test was screened with the use of an image guided system. Performed By: #### [id number] #### [facility] [address] [place] [address] Dr. Aura Griffiths Note: Comment Normal [facility] Comment on above: Result Comment: The Pap smear is a screening test designed to aid in the detection of premalignant and malignant conditions of the uterine cervix. It is not a diagnostic procedure and should not be used as the sole means of detecting cervical cancer. Both false-positive and false-negative reports do occur. . Performed By: #### [id number] #### [facility] [address] [place] [address] Dr. Aura Griffiths Performed by: Comment Normal [facility] Comment on above: Result Comment: Radha Trevino, Crop Quantitative Geneticist (ASCP) Performed By: #### [id number] #### [facility] [address] [place] [address] Dr. Aura Griffiths Reflex Criteria: Comment Normal [facility] Comment on above: Result Comment: The HPV DNA reflex criteria were not met with this specimen result therefore, no HPV testing was performed. . Performed By: #### [id number] #### [facility] [address] [place] [address] Dr. Aura Griffiths Specimen adequacy: Comment Normal [facility] Comment on above: Result Comment: Sati sfactory for evaluation. Endocervical and/or squamous metaplastic cells (endocervical component) are present. Performed By: #### [id number] #### [facility] [address] [place] [address] Dr. Aura Griffiths Vital Signs Date Time Vital Sign Value Performing Clinician Lolyi lity 11-13-2024 10:40-0400 Body mass index (BMI) [Ratio] 46.17 kg/m2 Karla OSPINA Work Phone: [facility] 11-13-2024 10:40-0400 Body weight 122.02 kg Karla Grant PA Work Phone: [facility] 11-13-2024 10:40-0400 Diastolic blood pressure 80 mm[Hg] Karla [place] PA Work Phone: [facility] 11-13-2024 10:40-0400 Systolic blood pressure 130 mm[Hg] Karla [place] PA Work Phone: [facility] 11-06-2024 14:02-0500 Body mass index (BMI) [Ratio] 45.68 kg/m2 Karla Grant PA Work Phone: [facility] 11-06-2024 14:02-0500 Body weight 120.71 kg Karla [place] PA Work Phone: [facility] 11-06-2024 14:02-0500 Diastolic blood pressure 80 mm[Hg] Karla Grant PA Work Phone: [facility] 11-06-2024 14:02-0500 Systolic blood pressure 126 mm[Hg] Karla [place] PA Work Phone: [facility] 10-23-2024 11:16-0500 Body mass index (BMI) [Ratio] 45.66 kg/m2 Karla [place] PA Work Phone: [facility] 10-23-2024 11:16-0500 Body weight 120.66 kg Karla Grant PA Work Phone: [facility] 10-23-2024 11:16-0500 Diastolic blood pressure 80 mm[Hg] Karla Grant PA Work Phone: [facility] 10-23-2024 11:16-0500 Systolic blood pressure 124 mm[Hg] Karla [place] PA Work Phone: [facility] 10-09-2024 10:43-0500 Body mass index (BMI) [Ratio] 46.17 kg/m2 Carrie Ora DO Work Phone: [facility] 10-09-2024 10:43-0500 Body weight 122.02 kg Carrie Ora DO Work Phone: [facility] 10-09-2024 10:43-0500 Diastolic blood pressure 70 mm[Hg] Carrie Ora DO Work Phone: [facility] 10-09-2024 10:43-0500 Systolic blood pressure 120 mm[Hg] Carrie Ora DO Work Phone: [facility] 09-25-2024 08:58-0500 Body mass index (BMI) [Ratio] 45.49 kg/m2 Carrie Ora DO Work Phone: [facility] 09-25-2024 08:58-0500 Body weight 120.2 kg Carrie Ora DO Work Phone: [facility] 09-25-2024 08:58-0500 Diastolic blood pressure 72 mm[Hg] Carrie Ora DO Work Phone: [facility] 09-25-2024 08:58-0500 Systolic blood pressure 122 mm[Hg] Carrie Ora DO Work Phone: [facility] 2024 09:48-0500 Body mass index (BMI) [Ratio] 44.97 kg/m2 Karla Grant PA Work Phone: [facility] 2024 09:48-0500 Body weight 118.84 kg Karla Grant PA Work Phone: [facility] 2024 09:48-0500 Diastolic blood pressure 70 mm[Hg] Karla Grant PA Work Phone: [facility] 2024 09:48-0500 Systolic blood pressure 120 mm[Hg] Karla [place] PA Work Phone: [facility] 08-14-2024 11:20-0500 Body mass index (BMI) [Ratio] 44.53 kg/m2 Carrie Ora DO Work Phone: [facility] 08-14-2024 11:20-0500 Body weight 117.66 kg Carrie Ora DO Work Phone: [facility] 08-14-2024 11:20-0500 Diastolic blood pressure 82 mm[Hg] Carrie Ora DO Work Phone: [facility] 08-14-2024 11:20-0500 Systolic blood pressure 124 mm[Hg] Carrie Ora DO Work Phone: [facility] 07-17-2024 10:48-0500 Body mass index (BMI) [Ratio] 45.28 kg/m2 Carrie Ora DO Work Phone: [facility] 07-17-2024 10:48-0500 Body weight 119.66 kg Carrie Ora DO Work Phone: [facility] 07-17-2024 10:48-0500 Diastolic blood pressure 70 mm[Hg] Carrie Ora DO Work Phone: [facility] 07-17-2024 10:48-0500 Systolic blood pressure 120 mm[Hg] Carrie Ora DO Work Phone: [facility] 06-17-2024 10:48-0400 Body mass index (BMI) [Ratio] 44.99 kg/m2 Carrie Ora DO Work Phone: [facility] 06-17-2024 10:48-0400 Body weight 118.9 kg Carrie Ora DO Work Phone: [facility] 06-17-2024 10:48-0400 Diastolic blood pressure 70 mm[Hg] Carrie Ora DO Work Phone: [facility] 06-17-2024 10:48-0400 Systolic blood pressure 120 mm[Hg] Carrie Ora DO Work Phone: [facility] 05-16-2024 09:16-0400 Body mass index (BMI) [Ratio] 46 kg/m2 [facility] 05-16-2024 09:16-0400 Body weight 121.56 kg [facility] Nurse [facility] 05-16-2024 09:16-0400 Diastolic blood pressure 70 mm[Hg] [facility] 05-16-2024 09:16-0400 Systolic blood pressure 120 mm[Hg] [facility] Encounters Encounter Date Encounter Type Care Provider Facility Start: 11-20-2024 End: 11-20-2024 Clinisync Result Encounter Carrie Ora DO Work Phone: [facility] External Department Unsolicited Start: 11-20-2024 End: 11-20-2024 Clinisync Result Encounter Carrie Ora DO Work Phone: [facility] Unsolicited Start: 11-13-2024 End: 11-13-2024 Bamboo flowsheet Karla OSPINA Work Phone: [facility] Start: 11-13-2024 End: 11-13-2024 Bamboo [...] Unsolicited Start: 10-23-2024 End: 10-23-2024 Bamboo flowsheet Kalra OSPINA Work Phone: [facility] Start: [...] Result Encounter Carrie Ora DO Work Phone: [facility] External Department Unsolicited Start: 09-25-2024 End: 09-25-2024 Bamboo flowsheet Carrie Ora DO Work Phone: [facility] Start: 09-25-2024 End: 09-25-2024 Bamboo flowsheet Carrie Ora DO Work Phone: [facility] Start: 09-25-2024 End: 09-25-2024 flow sheet Carrie Ora DO Work Phone: [facility] Comment on above: Second trimester pre gnancy; 27 weeks gestation of ; Elevated glucose tolerance test Start: 09-25-2024 End: 09-25-2024 ambulatory CARRIE ORA Not Available Start: 2024 End: 2024 Bamboo flowsheet Karla OSPINA Work Phone: [facility] Start: 2024 End: 2024 Bamboo flowsheet Karla OSPINA Work Phone: [facility] Start: 2024 End: 2024 flow sheet Karla OSPINA Work Phone: [facility] Comment on above: 25 weeks gestation o f ; Second trimester ; UTI symptoms Start: 2024 End: 2024 ambulatory KARLA BURNS Not Available Start: 08-14-2024 End: 08-14-2024 Bamboo flowsheet Carrie Ora DO Work Phone: [facility] Start: 08-14-2024 End: 08-14-2024 Bamboo flowsheet Carrie Ora DO Work Phone: [facility] Start: 08-14-2024 End: 08-14-2024 flow sheet Carrie Ora DO Work Phone: [facility] Comment on above: Second [...] Date Procedure Procedure Detail Performing Clinician Start: 11-20-2024 OB BPP W NON-STRESS Carrie Ora DO Work Phone: Start: 11-13-2024 US OB BPP W NON-STRESS Carrie Ora DO Work Phone: Start: 11-13-2024 Urnls dip stick/tabl et rgnt non-auto w/o micrscp aKrla OSPINA Work Phone: Start: 11-06-2024 Urnls dip [...] 05-30-2024 ALL CBC WITH AUTO DIFF Carrie Payan DO Work Phone: Start: 05-16-2024 Urine test visual color cmprsn meths Carrie Payan DO Work Phone: Start: 04-07-2024 Cytp cerv/vag auto t hin layer prep mnl screen Carrie Payan DO Work Phone: Plan of Treatment Date Care Activity Detail Author Start: 11-26-2024 End: 11-26-2024 Patient encounter procedure 11/26/2024 2:40 PM EDT Routine [facility] [address] [place] [id number] Carrie Payan DO [employer] [place] [address] [facility] Start: 11-24-2024 End: 11-24-2024 Patient encounter procedure 11/24/2024 9:30 AM EDT Routine [facility] [address] [place] [id number] Carrie Payan, DO [employer] [place] [address] [facility] Start: 11-13-2024 End: 11-13-2024 Patient encounter procedure 11/13/2024 10:10 AM EDT Office Visit [facility] [address] [place] [id number] Karla Burns PA [address] [place], [place] [id number] Arrived [facility] Comment on above: [...] or unspecified fetus Expected: 10/09/2024, Expires: 10/09/2025 [facility] Healthcare Comment on above: Expected: 10/09/2024 , Expires: 10/09/2025 Start: 10-09-2024 End: 10-09-2024 Patient encounter procedure 10/09/2024 10:40 AM EST Routine [facility] [address] [place] [id number] Carrie Payan, DO [address] [facility] [address] [place], [place] [address] [facility] Start: 10-09-2024 End: 10-09-2024 Professional / ancillary services management 10/09/2024 10:00 AM EST Ancillary Procedure [facility] [address] [place] [id number] [facility] Start: 09-25-2024 End: 09-25-2025 Measurement of glucose 3 hours after glucose challenge for glucose tolerance test Glucose tolerance, 3 hours Lab Routine Elevated glucose tolerance test Expected: 09/25/2024 (Approximate), Expires: 09/25/2025 [facility] Comment on above: Expected: 09/25/2024 [...] EST Ancillary Procedure [facility] [address] [facility] [place] [address] [facility] Start: 07-17-2024 End: 09-16-2024 Alpha fetoprotein, maternal Alpha fetoprotein, maternal Lab Routine Second trimester Expected: 07/17/2024 (Approximate), Expires: 09/16/2024 [facility] Comment on above: Expected: [...] anatomic survey Expected: 07/17/2024 (Approximate), Expires: 07/17/2025 [facility] Comment on above: Expected: 07/17/2024 (Approximate), Expires: 07/17/2025 Start: 07-15-2024 End: 07-15-2024 Patient encounter procedure 07/15/2024 10:50 AM EST Routine [facility] [address] [facility] [place] [address] Carrie Payan, [address] [place] [address] [facility] Start: 06-17-2024 End: 06-17-2024 Patient encounter procedure [facility] Comment on above: Arrived Start: 05-16-2024 End: 05-16-2025 ABO/Rh ABO/Rh Lab Routine Missed menses Expected: 05/16/2024 (Approximate), Expires: 05/16/2025 [facility] Comment on above: Expected: 05/16/2024 (Approximate), [...] gestational age Expected: 05/16/2024 (Approximate), Expires: 05/16/2025 [facility] Comment on above: Expected: 05/16/2024 (Approximate), Expires: 05/16/2025 Start: 05-16-2024 End: 05-16-2025 US Pelvis transvaginal US OB transvaginal Imaging Routine Missed menses Expected: 05/16/2024 (Approximate), Expires: 05/16/2025 [facility] Comment on above: Expected: 05/16/2024 (Approximate), Expires: 05/16/2025 Bacteria identified in Urine by Culture Urine culture Microbiology Routine Missed menses Ordered: 05/16/2024 [facility] Comment on above: Ordered: 05/16/2024 Bacteria identified in Urine by Culture Urine culture Microbiology Routine UTI symptoms Ordered: 2024 [facility] Work Phone: Comment on above: Ordered: 2024 CBC W Auto Different ial panel - Blood CBC and differential Lab Routine Missed menses Ordered: 05/16/2024 [facility] Comment on above: Ordered: 05/16/2024 CHLAMYDIA TRACHOMATI S (GENITO/STI) CHLAMYDIA TRACHOMATIS (GENITO/STI) Lab Routine Exposure to STD Ordered: 07/17/2024 [facility] Comment on above: Ordered: 07/17/2024 Hemoglobin A1c/Hemoglobin.total in Blood Hemoglobin A1c Lab Routine Missed menses Ordered: 05/16/2024 [facility] Comment on above: Ordered: 05/16/2024 Hepatitis B virus surface Ag [Presence] in Serum or Plasma by Immunoassay Hepatitis B surface antigen Lab Routine Missed menses Ordered: 05/16/2024 [facility] Comment on above: Ordered: 05/16/2024 Hepatitis C virus Ab [Presence] in Serum or Plasma by Immunoassay Hepatitis C antibody Lab Routine Missed menses Ordered: 05/16/2024 [facility] Comment on above: Ordered: 05/16/2024 HIV-1/HIV-2 antigen/antibody combination immunoassay HIV-1 and HIV-2 antibodies Lab Routine Missed menses Ordered: 05/16/2024 [facility] Comment on above: Ordered: 05/16/2024 Neisseria gonorrhoea e DNA [Presence] in Unspecified specimen by XIOMARA with probe detection Neisseria gonorrhea DNA probe, direct Lab Routine Exposure to STD Ordered: 07/17/2024 [facility] Comment on above: Ordered: 07/17/2024 Reagin Ab [Presence] in Serum by RPR RPR Lab Routine Missed menses Ordered: 05/16/2024 [facility] Comment on above: Ordered: 05/16/2024 Rubella antibody, IgG Rubella an tibody, IgG Lab Routine Missed menses Ordered: 05/16/2024 [facility] Comment on above: Ordered: 05/16/2024 SURESWAB(R) ADVANCED VAGINITIS PLUS, TMA SURESWAB(R) ADVANCED VAGINITIS PLUS, TMA Pathology and Cytology Routine Vaginal discharge Ordered: 07/17/2024 [facility] Work Phone: Comment on above: Ordered: 07/17/2024 Payers Date Payer Category Payer Unknown [id number] 2023 Blue Cross Blue Shield [id number] 2023 Unknown BCBS BCBS xxxxxx [id number] 2023-Present [phone] [address] [place] [address] [id number] 2023 Unknown [id number] 1995 Unknown [id number] [id number] 93 1997 Unknown [id number] 2.16.840.1.238310.3.579.2.5 93 1997 Unknown [id number] 2.16.840.1.378291.3.579.2.1 259 1997 Unknown [id number] 2.16.840.1.440098.3.579.2.1 259 1997 Unknown [id number] 2.16.840.1.602598.3.579.2.1 259 1997 Unknown [id number] 2.16.840.1.576469.3.579.2.1 259 1997 Unknown [id number] 2.16.840.1.325846.3.579.2.1 259 1997 Unknown [id number] 2.16.840.1.948490.3.579.2.1 259 1997 Unknown [id number] 2.16.840.1.989163.3.579.2.1 259 1997 Unknown [id number] 2.16.840.1.035408.3.579.2.1 259 1997 Unknown [id number] 2.16.840.1.711405.3.579.2.1 259 1997 Unknown [id number] 2.16.840.1.385870.3.579.2.1 259 1997 Unknown [id number] 2.16.840.1.368928.3.579.2.1 259 1997 Unknown [id number] 2.16.840.1.095225.3.579.2.1 259 1959 Private Health Insurance [id number] 1959 Unknown [id number] Social History Date Type Detail Facility Start: 07-31-2023 Tobacco smoking stat [facility] Never smoked tobacco [facility] Start: 07-31-2023 Tobacco use and exposure Smokeless t obacco non-user [facility] Start: 05-16-2024 End: 11-13-2024 Alcoholic beverage intake Lifetime non-drinker (finding) [facility] Start: 07-31-2023 End: 04-07-2024 History of Social function [facility] Start: 07-31-2023 End: 04-07-2024 Tobacco use panel [facility] Start: 03-28-2024 [facility] Start: 1995 Sex [facility] at Female [facility] Start: 01-23-2023 Gender identity Identifies as female gender (finding) [facility] Clinical Notes 05-16-2024 to 11-13-2024 BHAVESH Javier [...] Morbid obesity with BMI of 40.0-44.9, adult ([facility]) Negative test On Depo-Provera for contraception HISTORY PAST MEDICAL HISTORY SOCIAL HISTORY Past Medical History: Diagnosis Date Depression screening Encounter for gynecological examination (general) (routine) without abnormal findings Family planning Insulin resistance Morbid obesity with BMI of 40.0-44.9, adult ([facility]) Negative test On Depo-Provera for [...] nursing note reviewed. Exam conducted with a independent crop consultant present. Vitals: Estimated body mass index is [...] of: BHAVESH Javier documented in this encounter [facility] 11-06-2024 History of Presen t illness Narrative [...] Morbid obesity with BMI of 40.0-44.9, adult ([facility]) Negative test On Depo-Provera for contraception HISTORY PAST MEDICAL HISTORY SOCIAL HISTORY Past Medical History: Diagnosis Date Depression screening Encounter for gynecological examination (general) (routine) without abnormal findings Family planning Insulin resistance Morbid obesity with BMI of 40.0-44.9, adult ([facility]) Negative test On Depo-Provera for [...] nursing note reviewed. Exam conducted with a independent crop consultant present. Vitals: Estimated body mass index is [...] of: BHAVESH Javier documented in this encounter [facility] 10-23-2024 History of Presen t illness Narrative [...] Morbid obesity with BMI of 40.0-44.9, adult ([facility]) Negative test On Depo-Provera for contraception HISTORY PAST MEDICAL HISTORY SOCIAL HISTORY Past Medical History: Diagnosis Date Depression screening Encounter for gynecological examination (general) (routine) without abnormal findings Family planning Insulin resistance Morbid obesity with BMI of 40.0-44.9, adult ([facility]) Negative test On Depo-Provera for [...] of: BHAVESH Javier documented in this encounter [facility] 10-09-2024 History of Presen [...] Morbid obesity with BMI of 40.0-44.9, adult ([facility]) Negative test On Depo-Provera for contraception HISTORY PAST MEDICAL HISTORY SOCIAL HISTORY Past Medical History: Diagnosis Date Depression screening Encounter for gynecological examination (general) (routine) without abnormal findings Family planning Insulin resistance Morbid obesity with BMI of 40.0-44.9, adult ([facility]) Negative test On Depo-Provera for [...] nursing note reviewed. Exam conducted with a independent crop consultant present. Vitals: Estimated body mass index is [...] Carrie Payan DO documented in this encounter [facility] 09-25-2024 History of Presen [...] with BMI of 40.0-44.9, adult ([facility]) Negative test On Depo-Provera for [...] nursing note reviewed. Exam conducted with a independent crop consultant present. Vitals: Estimated body mass index is [...] Carrie Payan DO documented in this encounter [facility] 2024 History of Presen [...] with BMI of 40.0-44.9, adult ([facility]) Negative test On Depo-Provera for contraception HISTORY PAST MEDICAL HISTORY SOCIAL HISTORY Past Medical History: Diagnosis Date Depression screening Encounter for gynecological examination (general) (routine) without abnormal findings Family planning Insulin resistance Morbid obesity with BMI of 40.0-44.9, adult ([facility]) Negative test On Depo-Provera for [...] nursing note reviewed. Exam conducted with a independent crop consultant present. Vitals: Estimated body mass index is [...] of: BHAVESH Javier documented in this encounter [facility] 08-14-2024 History of Presen [...] Morbid obesity with BMI of 40.0-44.9, adult ([facility]) Negative test On Depo-Provera for contraception HISTORY PAST MEDICAL HISTORY SOCIAL HISTORY Past Medical History: Diagnosis Date Depression screening Encounter for gynecological examination (general) (routine) without abnormal findings Family planning Insulin resistance Morbid obesity with BMI of 40.0-44.9, adult ([facility]) Negative test On Depo-Provera for [...] nursing note reviewed. Exam conducted with a independent crop consultant present. Vitals: Estimated body mass index is [...] Carrie Payan DO documented in this encounter [facility] 07-17-2024 History of Presen [...] with BMI of 40.0-44.9, adult ([facility]) Negative test On Depo-Provera for contraception HISTORY PAST MEDICAL HISTORY SOCIAL HISTORY Past Medical History: Diagnosis Date Depression screening Encounter for gynecological examination (general) (routine) without abnormal findings Family planning Insulin resistance Morbid obesity with BMI of 40.0-44.9, adult ([facility]) Negative test On Depo-Provera for [...] nursing note reviewed. Exam conducted with a independent crop consultant present. Vitals: Estimated body mass index is [...] Carrie Payan DO documented in this encounter [facility] 06-17-2024 History of Presen [...] Morbid obesity with BMI of 40.0-44.9, adult ([facility]) Negative test On Depo-Provera for contraception HISTORY PAST MEDICAL HISTORY SOCIAL HISTORY Past Medical History: Diagnosis Date Depression screening Encounter for gynecological examination (general) (routine) without abnormal findings Family planning Insulin resistance Morbid obesity with BMI of 40.0-44.9, adult ([facility]) Negative test On Depo-Provera for [...] nursing note reviewed. Exam conducted with a independent crop consultant present. Vitals: Estimated body mass index is [...] or undercooked meat, and stay away from [facility]. Patient has been consulted regarding any further [...] Karla Burns PA-C documented in this encounter [facility] 05-16-2024 History of Presen [...] Morbid obesity with BMI of 40.0-44.9, adult ([facility]) Negative test On Depo-Provera for [...] or undercooked meat, and stay away from [facility]. Patient has also been advised to not [...] Shannan Peña LPN documented in this encounter [facility] Evaluation note Diagnosis 13 weeks [...] CREATED AUTHOR AUTHOR'S ORGANIZ ATION 04/08/2022 [facility] DATE CREATED AUTHOR AUTHOR'S ORGANIZ ATION 11/16/2024 [facility] dical Specialists [facility] Care Teams (unrecognized sec tion and content) Sub Assembly Team Worker Relationship Specialty Start Date End Date Karla Ortega MD [address] [place] [address] PCP - General Family Medicine 01/24/23 Sub Assembly Team Worker Relationship Specialty Start Date End Date Karla Ortega MD [address] [place] [address] PCP - General Family Medicine 01/24/23 Sub Assembly Team Worker Relationship Specialty Start Date End Date Karla Ortega MD [address] [place] [id number] PCP - General Family Medicine 01/24/23 Sub Assembly Team Worker Relationship Specialty Start Date End Date Karla Ortega MD [address] [place] [address] PCP - General Family Medicine 01/24/23 Sub Assembly Team Worker Relationship Specialty Start Date End Date Karla Ortega MD [address] [place] [address] PCP - General Family Medicine 01/24/23 Sub Assembly Team Worker Relationship Specialty Start Date End Date Karla Ortega MD [address] [place] [address] PCP - General Family Medicine 01/24/23 Sub Assembly Team Worker Relationship Specialty Start Date End Date Karla Ortega MD [address] [place] [address] PCP - [facility] Medicine 01/24/23 Sub Assembly Team Worker Relationship Specialty Start Date End Date Karla Ortega MD [address] [place] [address] PCP - [facility] 01/24/23 Sub Assembly Team Worker Relationship Specialty Start Date End Date Karla Ortega MD [address] [place] [address] PCP - [facility] 01/24/23 Sub Assembly Team Worker Relationship Specialty Start Date End Date Karla Ortega MD [address] [place] [address] PCP - [facility] Medicine 01/24/23 Sub Assembly Team Worker Relationship Specialty Start Date End Date Karla Ortega MD [address] [place] [address] PCP - General [facility] Medicine 01/24/23 Reason for Visit (unrecogniz ed [...] BE BASED ON THE PRIMARY CLINICAL RECORDS. [employer] [facility]. provides no warranty or guarantee of the accuracy or completeness of information in this document.
[2024-11-24 19:08] VITALS: BP 138/80; PULSE 96
== END 2024-11-24 19:35 | disposition home or self-care (01) ==
LOC: FBCO 18:57 → FBC 19:00
PROVIDERS: Visit Provider Obstetrics & Gynecology
DX: O36.63X0 Maternal care for excessive fetal growth, third trimester, not applicable or unspecified (principal); Z3A.36 36 weeks gestation of pregnancy
CPT/HCPCS: 59025

== ENCOUNTER 2024-11-26 18:13 | Outpatient (REF) | payer BC, SELFPAY | END 2024-11-26 18:14 | disposition home or self-care (01) | LOC: LAB 18:13 | PROVIDERS: Visit Provider Obstetrics & Gynecology | DX: Z34.93 Encounter for supervision of normal pregnancy, unspecified, third trimester (principal) | CPT/HCPCS: 36415; 87081 ==

== ENCOUNTER 2024-11-27 11:04 | Outpatient (OUT) | payer BC, SELFPAY ==
--- NOTE | 2024-11-27 11:06 | US_ITS ---
[address] [address] Patient Name: KAREEN FORMAN MRN: [id number] date: 1995 Sex: F Assigned Patient Location: US Current Patient Location: LAB Accession/Order Number: [id number] Exam Date: 11/27/2024 14:32 Report Date: 11/27/2024 14:34 At the request of: CARRIE ARREDONDO DO Procedure: US OB BPP w non-stress BPP. Reason for exam: Excessive growth. COMPARISON: BPP 11/20/2024 TECHNIQUE: Transabdominal imaging of the gravid uterus was obtained. FINDINGS: Computer Technology Trainer reports the BPP is 8 out of 8. JENS measures 15.9cm. heart rate 138 bpm. US/US OB BPP w non-stress Impression: BPP 8 out of 8. Impression dictated by: Jaime Hernandez Jr.OBunny11/27/2024 2:34 PM Dictation Location: [employer] Electronically authenticated by: [id number] Y Date: 11/27/2024 14:34
[2024-11-27 11:35] VITALS: BP 112/69; PULSE 114
== END 2024-11-27 12:00 | disposition home or self-care (01) ==
LOC: US 11:04 → FBC 11:10
PROVIDERS: Visit Provider Obstetrics & Gynecology
DX: O36.63X0 Maternal care for excessive fetal growth, third trimester, not applicable or unspecified (principal); Z3A.36 36 weeks gestation of pregnancy
CPT/HCPCS: 76818

== ENCOUNTER 2024-12-01 18:52 | Outpatient (OUT) | payer BC, SELFPAY ==
--- OUTSIDE RECORDS SUMMARY | 2024-12-01 19:01 | XMS_ITS | CCD ---
Author Organization [facility] Care Team Providers Care Field Representative/Health Education Name Role Phone DR CARRIE PAYAN Primary Care Unavailable ANGÉLICA NARAYANAN Attending Unavailable ANGÉLICA NARAYANAN Consulting Unavailable ANGÉLICA NARAYANAN Admitting Unavailable MARQUIS HENSON Consulting Unavailable OAR, DR BUTLER Consulting Unavailable ORA, DR BUTLER Primary Care Unavailable DR CARRIE PAYAN Admitting Unavailable ORA, DR BUTLER Attending Unavailable Karla Ortega MD Primary Care Provider [phone] CARRIE PAYAN Attending Unavailable ORA, CARRIE Attending Unavailable GRANT, KARLA Attending Unavailable GRANT, KALRA Attending Unavailable GRANT, KARLA Attending Unavailable ORA, CARRIE Attending Unavailable GRANT, KARLA Attending Unavailable ORA, CARRIE Attending Unavailable ORA, CARRIE Attending Unavailable ORA, CARRIE Attending Unavailable GRANTKARLA Attending Unavailable Medications Current Medications Medication Drug Class(es) Dates Sig (Normalized) Sig (Original) aspirin 81 mg delayed release oral tablet (20 sources) Platelet Aggregation Inhibitor, Nonsteroidal Anti-inflammatory Drug [...] 09/18/2024 Active hydrocortisone 10 mg/ml rectal cream (6 sources) Corticosteroid Start: 11-17-2024 Preparation H 1 % [...] [34 weeks gestation of ] 11-13-2024 Episodic Residual codes; unclassified (2 sources) Gestation period, 36 weeks; Translations: [36 weeks gestation of ] 11-26-2024 Episodic Sprains and strains (1 source) Sprain of unspecified ligament of left ankle, initial encounter; Translations: [SPRAIN UNS LIGAMENT LT ANKLE INIT] Onset: 03-13-2022 Episodic Results Test Name Value Interpretation Reference Range Facility ALL MISCELLANEOUS TESTon MISCELLANEOUS TEST COMMENT . [facility] Comment on above: Test Ordered: [id number] Strep Gp B Culture+Rflx Strep Gp B Culture+Rflx Negative CB Reference Range: Negative Centers for Disease Control and Prevention (CDC) and [place] Congress of Obstetricians and Gynecologists (ACOG) guidelines for prevention of group B streptococcal (GBS) disease specify co-collection of a vaginal and rectal swab specimen to maximize sensitivity of GBS detection. Per the CDC and ACOG, swabbing both the lower vagina and rectum substantially increases the yield of detection compared with sampling the vagina alone. Penicillin G, ampicillin, or cefazolin are indicated for intrapartum prophylaxis of GBS colonization. Reflex susceptibility testing should be performed prior to use of clindamycin only on GBS isolates from penicillin- allergic women who are considered a high risk for anaphylaxis. Treatment with vancomycin without additional testing is warranted if resistance to clindamycin is noted. Performed at: [address] [id number] Linen Supervisor: Alexis Ortiz PhD, Phone: [phone] GROUP B STREP [id number] CULTURE, GROUP B STREP WITH SUSCEPTIBILITY [facility] US OB BPP W NON-STRESS on 11-27-2024 [place] [address] Ultrasound Report Signed Patient: KAREEN FORMAN MR#: [id number] : 1995 Acct:[id number] Age/Sex: 29 / F ADM Date: 11/27/24 Loc: US Attending Dr: Carrie Payan D.O. Ordering Physician: Carrie Payan D.O. Date of Service: 11/27/24 Procedure(s): US OB BPP w non-stress Accession Number(s): [id number] cc: KARLA ORTEGA; Carrie Payan D.O. The [place] [id number] Patient Name: KAREEN FORMAN MRN: [facility]:[id number] date: 1995 Sex: F Assigned Patient Location: US Current Patient Location: LAB Accession/Order Number: [id number] Exam Date: 11/27/2024 14:32 Report Date: 11/27/2024 14:34 At the request of: CARRIE PAYAN DO Procedure: US OB BPP w non-stress BPP. Reason for exam: Excessive growth. COMPARISON: BPP 11/20/2024 TECHNIQUE: Transabdominal imaging of the gravid uterus was obtained. FINDINGS: Therapeutic Case Manager reports the BPP is 8 out of 8. JENS measures 15.9cm. heart rate 138 bpm. US/US OB BPP w non-stress Impression: BPP 8 out of 8. Impression dictated by: Claudio Schuster Jr., D.O.11/27/2024 2:34 PM Dictation Location: [place] [address] Electronically authenticated by: [id number] Y Date: 11/27/2024 14:34 Dictated By: Claudio Schuster M.D. Signed By: 11/27/24 1436 DD/ 1434 TD/TT: Outdoor Fitness Trainer: [facility] Radiology, Radiologist, - 11/27/2024 [place] [address] Ultrasound Report Signed Patient: KAREEN FORMAN MR#: [id number] : 1995 Acct:[id number] Age/Sex: 29 / F ADM Date: 11/27/24 Loc: US Attending Dr: Carrie Payan D.O. Ordering Physician: Carrie Payan D.O. Date of Service: 11/27/24 Procedure(s): US OB BPP w non-stress Accession Number(s): [id number] cc: KARLA ORTEGA; Carrie Payan D.O. [place] [address] Patient Name: KAREEN FORMAN MRN: [facility]:[id number] date: 1995 Sex: F Assigned Patient Location: US Current Patient Location: LAB Accession/Order Number: [id number] Exam Date: 11/27/2024 14:32 Report Date: 11/27/2024 14:34 At the request of: CARRIE PAYAN DO Procedure: US OB BPP w non-stress BPP. Reason for exam: Excessive growth. COMPARISON: BPP 11/20/2024 TECHNIQUE: Transabdominal imaging of the gravid uterus was obtained. FINDINGS: Therapeutic Case Manager reports the BPP is 8 out of 8. JENS measures 15.9cm. heart rate 138 bpm. US/US OB BPP w non-stress Impression: BPP 8 out of 8. Impression dictated by: Claudio Schuster Jr., D.O.11/27/2024 2:34 PM Dictation Location[facility] Electron[facility] authenticated by: [id number] Y Date: 11/27/2024 14:34 Dictated By: Claudio Schuster M.D. Signed By: 11/27/241435 DD/ 33 TD/TT: Outdoor Fitness Trainer: [facility] Radiology Study observation (narrative) [facility] US OB BPP W NON-STRESS Ordered By: Radiologist Radiology on 11-27-2024 [facility] Work Phone: Urinalysis macro (dipstick) panel (U)on 11-26-2024 Bilirubin, UA Negative Negative - 4(70) +++ mg/dL [facility] Blood, UA Positive Negative - 50 Roberto/mcL [facility] Clarity, [facility], UA Yellow [facility] e Glucose, UA Negative Negative - 2000(110) ++++ mg/dL [facility] Interpretation and review of laboratory results Abnormal [facility] Ketones, UA Negative Negative - 160(16) ++++ mg/dL [facility] Leukocytes, UA Trace Negative - 500+++ Christian/mcL [facility] Nitrite, UA Negative Negative - Positive [facility] pH, UA 7.5 5 - 9 [facility] Protein, UA Trace Negative - 1999(20) ++++ mg/dL [facility] Spec Grav, UA 1.025 1 - 1.03 [facility] care Urobilinogen, UA 1.0 0.2 - 12 mg/dL [facility] BPP W NON-STRESS on 11-20-2024 [place] [address] Ultrasound Report Signed Patient: KAREEN FORMAN MR#: [id number] : 1995 Acct:[id number] Age/Sex: 29 / F ADM Date: 11/20/24 Loc: [place] [address]: Carrie Payan D.O. Ordering Physician: Carrie Payan D.O. Date of Service: 11/20/24 Procedure(s): US OB BPP w non-stress Accession Number(s): [id number] cc: KARLA ORTEGA; Carrie Payan D.O. [place] [address] Patient Name: KAREEN FORMAN MRN: [facility]:[id number] date: 1995 Sex: F Assigned Patient Location: [facility] Current Patient Location: [facility] Accession/Order Number: [id number] Exam Date: 11/20/2024 11:45 Report Date: 11/20/2024 11:46 At the request of: CARRIE PAYAN DO Procedure: US OB BPP w non-stress BPP. Reason for exam: Excessive growth. COMPARISON: BPP 10/23/2024 TECHNIQUE: Transabdominal imaging of the gravid uterus was obtained. FINDINGS: Therapeutic Case Manager reports the BPP is 8 out of 8. JENS measures 14.2cm. heart rate 134 bpm. US/US OB BPP w non-stress Impression: BPP 8 out of 8. Impression dictated by: Claudio Schuster Jr., D.O.11/20/2024 11:46 AM Dictation Location: [place] [address] Electronically authenticated by: [id number] Y Date: 11/20/2024 11:46 Dictated By: Claudio Schuster M.D. Signed By: 11/20/24 1149 DD/ 1146 TD/TT: Outdoor Fitness Trainer: [facility] Radiology, Radiologist, - 11/20/2024 [place] [address] Ultrasound Report Signed Patient: KAREEN FORMAN MR#: [id number] : 1995 Acct:[id number] Age/Sex: 29 / F ADM Date: 11/20/24 Loc: [place] [address]: Carrie Payan D.O. Ordering Physician: Carrie Payan D.O. Date of Service: 11/20/24 Procedure(s): US OB BPP w non-stress Accession Number(s): [id number] cc: KARLA ORTEGA; Carrie Payan D.O. The [place] [address] Patient Name: KAREEN FORMAN MRN: [facility]:[id number] date: 1995 Sex: F Assigned Patient Location: [facility] Current Patient Location: [facility] Accession/Order Number: [id number] Exam Date: 11/20/2024 11:45 Report Date: 11/20/2024 11:46 At the request of: CARRIE PAYAN DO Procedure: US OB BPP w non-stress BPP. Reason for exam: Excessive growth. COMPARISON: BPP 10/23/2024 TECHNIQUE: Transabdominal imaging of the gravid uterus was obtained. FINDINGS: Therapeutic Case Manager reports the BPP is 8 out of 8. JENS measures 14.2cm. heart rate 134 bpm. US/US OB BPP w non-stress Impression: BPP 8 out of 8. Impression dictated by: Claudio Schuster Jr., D.O.11/20/2024 11:46 AM Dictation Location: [place] [address] Electronically authenticated by: [id number] Y Date: 11/20/2024 11:46 Dictated By: Claudio Schuster M.D. Signed By: 11/20/24 1149 DD/ 1146 TD/TT: Outdoor Fitness Trainer: [facility] Radiology Study observation (narrative) [facility] US OB BPP W NON-STRESS Ordered By: Radiologist Radiology on 11-20-2024 [facility] [employer] Work Phone: US OB BPP W NON-STRESS on 11-13-2024 [place] [address] Ultrasound Report Signed Patient: KAREEN FORMAN MR#: [id number] : 1995 Acct:[id number] Age/Sex: 29 / F ADM Date: 11/13/24 Loc: [facility] 250-[address]: Carrie Payan D.O. Ordering Physician: Carrie Payan D.O. Date of Service: 11/13/24 Procedure(s): US OB BPP w non-stress Accession Number(s): [id number] cc: KARLA ORTEGA; Carrie Payan D.O. [place] [id number] Patient Name: KAREEN FORMAN MRN: [facility]:[id number] date: 1995 Sex: F Assigned Patient Location: Current Patient Location: US Accession/Order Number: [id number] Exam Date: 11/13/2024 11:58 Report Date: 11/13/2024 11:59 At the request of: CARRIE PAYAN DO Procedure: US OB BPP w non-stress BIOPHYSICAL PROFILE: CLINICAL INFORMATION: Excessive growth COMPARISON: 11/06/2024 There is a single live intrauterine gestation in cephalic presentation. The reported gestational age is 34 weeks 6 days. The heart rate fwjsywyh793 beats per minute. FINDINGS: TONE: 1 or [...] Bita Mcdonough M.D.11/13/2024 11:59 AM Dictation Location: [place] [address] Electronically authenticated by: [id number] Y Date: 11/13/2024 11:59 Dictated By: Bita Mcdonough M.D. Signed By: 11/13/24 1202 DD/ 1159 TD/TT: Outdoor Fitness Trainer: [facility] Radiology, Radiologist, MD - 11/13/2024 [place] [address] Ultrasound Report Signed Patient: KAREEN FORMAN MR#: [id number] : 1995 Acct:[id number] Age/Sex: 29 / F ADM Date: 11/13/24 Loc: [facility] [address]: Carrie Payan D.O. Ordering Physician: Carrie Payan D.O. Date of Service: 11/13/24 Procedure(s): US OB BPP w non-stress Accession Number(s): [id number] cc: KARLA ORTEGA; Carrie Payan D.O. The [place] [address] Patient Name: KAREEN FORMAN MRN: [facility]:[id number] date: 1995 Sex: F Assigned Patient Location: US Current Patient Location: US Accession/Order Number: [id number] Exam Date: 11/13/2024 11:58 Report Date: 11/13/2024 11:59 At the request of: CARRIE PAYAN DO Procedure: US OB BPP w non-stress BIOPHYSICAL PROFILE: CLINICAL INFORMATION: Excessive growth COMPARISON: 11/06/2024 There is a single live intrauterine gestation in cephalic presentation. The reported gestational age is 34 weeks 6 days. The heart rate [id number] beats per minute. FINDINGS: TONE: 1 or [...] Bita Mcdonough M.D.11/13/2024 11:59 AM Dictation Location: [place] [address] Electronically authenticated by: [id number] Y Date: 11/13/2024 11:59 Dictated By: Bita Mcdonough M.D. Signed By: 11/13/24 1202 DD/ 1159 TD/TT: Outdoor Fitness Trainer: [facility] Radiology Study observation (narrative) [facility] OB BPP W NON-STRESS Ordered By: Radiologist Radiology on 11-13-2024 [facility] [employer] Work Phone: Urinalysis macro (dipstick) panel (U)on 11-13-2024 Bilirubin, UA Negative Negative - 4(70) +++ mg/dL [facility] Blood, UA Negative Negative - 50 Roberto/mcL [facility] Clarity, UA Clear [facility] re Color, UA Yellow [facility] e Glucose, UA Negative Negative - 1999(110) ++++ mg/dL [facility] Interpretation and review of laboratory results Abnormal [facility] Ketones, UA Negative Negative - 160(16) ++++ mg/dL [facility] Leukocytes, UA Positive Negative - 500+++ Christian/mcL [facility] Comment on above: small Nitrite, UA Negative Negative - Positive [facility] pH, UA 6.5 5 - 9 [facility] e Protein, UA Negative Negative - 1999(20) ++++ mg/dL [facility] Spec Grav, UA 1.02 1 - 1.03 [facility] Urobilinogen, UA 0.2 0.2 - 12 mg/dL [facility] Urinalysis macro (dipstick) panel (U)on 11-06-2024 Bilirubin, UA Negative Negative - 4(70) +++ mg/dL [facility] Blood, UA Negative Negative - 50 Roberto/mcL [facility] Clarity, UA Clear [facility] re Color, UA Yellow [facility] Glucose, UA Negative Negative - 1999(110) ++++ mg/dL [facility] Interpretation and review of laboratory results Abnormal [facility] Ketones, UA Negative Negative - 160(16) ++++ mg/dL [facility] Leukocytes, UA Trace Negative - 500+++ Christian/mcL [facility] Nitrite, UA Negative Negative - Positive [facility] pH, UA 6.5 5 - 9 [facility] Protein, UA Negative Negative - 1999(20) ++++ mg/dL [facility] Spec Grav, UA 1.025 1 - 1.03 [facility] Urobilinogen, UA 2.0 0.2 - 12 mg/dL [facility] US OB BPP W NON-STRESS on 10-31-2024 [place] [address] Ultrasound Report Signed Patient: KAREEN FORMAN MR#: [id number] : 1995 Acct:[id number] Age/Sex: 29 / F ADM Date: 10/30/24 Loc: US Attending Dr: Carrie Payan D.O. Ordering Physician: Carrie Payan D.O. Date of Service: 10/30/24 Procedure(s): US OB BPP w non-stress Accession Number(s): [id number] cc: KARLA ORTEGA; Carrie Payan D.O. The [address] [address] Patient Name: KAREEN FORMAN MRN: [facility]:[id number] date: 1995 Sex: F Assigned Patient Location: [facility] Current Patient Location: Accession/Order Number: [id number] Exam Date: 10/31/2024 10:24 Report Date: 10/31/2024 10:25 At the request of: CARRIE PAYAN DO Procedure: US OB BPP w non-stress BIOPHYSICAL PROFILE: CLINICAL INFORMATION: EXCESSIVE GROWTH AFFECTING O36.60X0 COMPARISON: 10/23/2024 There is a single live intrauterine gestation in cephalic presentation. Reported age is 32 weeks 6 days. The heart rate [id number] ( beats per minute. FINDINGS: TONE: 1 [...] Bita Mcdonough M.D.10/31/2024 10:25 AM Dictation Location: [place] Electronically authenticated by: [id number] Y Date: 10/31/2024 10:25 Dictated By: Bita Mcdonough M.D. Signed By: 10/31/24 1027 DD/ 102 TD/TT: Outdoor Fitness Trainer: [facility] Radiology, Radiologist, MD - 10/31/2024 [place] [address] Ultrasound Report Signed Patient: KAREEN FORMAN MR#: [id number] : 1995 Acct:[id number] Age/Sex: 29 / F ADM Date: 10/30/24 Loc: US Attending Dr: Carrie Payan D.O. Ordering Physician: Carrie Payan D.O. Date of Service: 10/30/24 Procedure(s): US OB BPP w non-stress Accession Number(s): [id number] cc: KARLA ORTEGA; Carrie Payan D.O. The [place] [id number] Patient Name: KAREEN FORMAN MRN: [facility]:[id number] date: 1995 Sex: F Assigned Patient Location: [facility] Current Patient Location: Accession/Order Number: [id number] Exam Date: 10/31/2024 10:24 Report Date: 10/31/2024 10:25 At the request of: CARRIE PAYAN DO Procedure: US OB BPP w non-stress BIOPHYSICAL PROFILE: CLINICAL INFORMATION: EXCESSIVE GROWTH AFFECTING O36.60X0 COMPARISON: 10/23/2024 There is a single live intrauterine gestation in cephalic presentation. Reported age is 32 weeks 6 days. The heart rate [id number] ( beats per minute. FINDINGS: TONE: 1 [...] Bita Mcdonough M.D.10/31/2024 10:25 AM Dictation Location: [place] [address] Electronically authenticated by: [id number] Y Date: 10/31/2024 10:25 Dictated By: Bita Mcdonough M.D. Signed By: 10/31/24 1027 DD/ 1025 TD/TT: Outdoor Fitness Trainer: [facility] [employer] Radiology Study observation (narrative) [facility] US OB BPP W NON-STRESS Ordered By: Radiologist Radiology on 10-31-2024 [facility] [employer] Work Phone: US OB BPP W NON-STRESS on 10-23-2024 [place] [address] Ultrasound Report Signed Patient: KAREEN FORMAN MR#: [id number] : 1995 Acct:[id number] Age/Sex: 29 / F ADM Date: 10/23/24 Loc: US Attending Dr: Carrie Payan D.O. Ordering Physician: Carrie Payan D.O. Date of Service: 10/23/24 Procedure(s): US OB BPP w non-stress Accession Number(s): [id number] cc: KARLA ORTEGA; Carrie Payan D.O. The [place] [address] Patient Name: KAREEN FORMAN MRN: [facility]:[id number] date: 1995 Sex: F Assigned Patient Location: [facility] Current Patient Location: US Accession/Order Number: [id number] Exam Date: 10/23/2024 13:18 Report Date: 10/23/2024 22:17 At the request of: CARRIE PAYAN DO Procedure: US OB BPP w non-stress BPP. Reason for exam: Excessive growth. COMPARISON: BPP 10/16/2024. TECHNIQUE: Transabdominal imaging of the gravid uterus was obtained. FINDINGS: Therapeutic Case Manager reports the BPP is 8 out of 8. JENS measures 13.1 cm. heart rate 161 bpm. US/US OB BPP w non-stress Impression: BPP 8 out of 8. Correlation with NST is recommended. Impression dictated by: Claudio Schuster Jr., D.O.10/23/2024 10:17 PM Dictation Location: [place] [address] Electronically authenticated by: [id number] Y Date: 10/23/2024 22:17 Dictated By: Claudio Schuster M.D. Signed By: 10/23/242218 DD/ 16 TD/TT: Outdoor Fitness Trainer: [facility] Radiology, Radiologist, MD - 10/23/2024 [place] [address] Ultrasound Report Signed Patient: KAREEN FORMAN MR#: [id number] : 1995 Acct:[id number] Age/Sex: 29 / F ADM Date: 10/23/24 Loc: US Attending Dr: Carrie Payan D.O. Ordering Physician: Carrie Payan D.O. Date of Service: 10/23/24 Procedure(s): US OB BPP w non-stress Accession Number(s): [id number] cc: KARLA ORTEGA; Carrie Payan D.O. [place] [id number] Patient Name: KAREEN FORMAN MRN: [facility]:[id number] date: 1995 Sex: F Assigned Patient Location: [facility] Current Patient Location: US Accession/Order Number: [id number] Exam Date: 10/23/2024 13:18 Report Date: 10/23/2024 22:17 At the request of: CARRIE PAYAN DO Procedure: US OB BPP w non-stress BPP. Reason for exam: Excessive growth. COMPARISON: BPP 10/16/2024. TECHNIQUE: Transabdominal imaging of the gravid uterus was obtained. FINDINGS: Therapeutic Case Manager reports the BPP is 8 out of 8. JENS measures 13.1 cm. heart rate 161 bpm. US/US OB BPP w non-stress Impression: BPP 8 out of 8. Correlation with NST is recommended. Impression dictated by: Claudio Schuster Jr., D.O.10/23/2024 10:17 PM Dictation Location: [place] [address] Electronically authenticated by: [id number] Y Date: 10/23/2024 22:17 Dictated By: Claudio Schuster M.D. Signed By: 10/23/242218 DD/ 16 TD/TT: Outdoor Fitness Trainer: [facility] [employer] Radiology Study observation (narrative) [facility] US OB BPP W NON-STRESS Ordered By: Radiologist Radiology on 10-23-2024 [facility] [employer] Work Phone: Urinalysis macro (dipstick) panel (U)on 10-23-2024 Bilirubin, UA Negative Negative - 4(70) +++ mg/dL [facility] Blood, UA Negative Negative - 50 Roberto/mcL [facility] Clarity, UA Clear [facility] Color, UA Yellow [facility] Glucose, UA Negative Negative - 1999(110) ++++ mg/dL [facility] Interpretation and review of laboratory results Abnormal [facility] Ketones, UA Negative Negative - 160(16) ++++ mg/dL [facility] Leukocytes, UA Trace Negative - 500+++ Christian/mcL [facility] Nitrite, UA Negative Negative - Positive [facility] pH, UA 6.5 5 - 9 [facility] e Protein, UA Negative Negative - 1999(20) ++++ mg/dL [facility] Spec Grav, UA 1.025 1 - 1.03 [facility] Urobilinogen, UA 1.0 0.2 - 12 mg/dL [facility] OB BPP W NON-STRESS on 10-16-2024 [place] [address] Ultrasound Report Signed Patient: KAREEN FORMAN MR#: [id number] : 1995 Acct:[id number] Age/Sex: 29 / F ADM Date: 10/16/24 Loc: US Attending Dr: Carrie Payan D.O. Ordering Physician: Carrie Payan D.O. Date of Service: 10/16/24 Procedure(s): US OB BPP w non-stress Accession Number(s): [id number] cc: KARLA ORTEGA; Carrie Payan D.O. The [place] [address] Patient Name: KAREEN FORMAN MRN: [facility]:[id number] date: 1995 Sex: F Assigned Patient Location: US Current Patient Location: Accession/Order Number: [id number] Exam Date: 10/16/2024 13:57 Report Date: 10/16/2024 [...] Signed By: 10/16/24 1544 DD/ 1541 TD/TT: Outdoor Fitness Trainer: [facility] Radiology, Radiologist, MD - 10/16/2024 [place] [address] Ultrasound Report Signed Patient: KAREEN FORMAN MR#: [id number] : 1995 Acct:[id number] Age/Sex: 29 / F ADM Date: 10/16/24 Loc: US Attending Dr: Carrie Payan D.O. Ordering Physician: Carrie Payan D.O. Date of Service: 10/16/24 Procedure(s): US OB BPP w non-stress Accession Number(s): [id number] cc: KARLA ORTEGA; Carrie Payan D.O. The [address] [address] Patient Name: KAREEN FORMAN MRN: [facility]:[id number] date: 1995 Sex: F Assigned Patient Location: US Current Patient Location: Accession/Order Number: [id number] Exam Date: 10/16/2024 13:57 Report Date: 10/16/2024 [...] Signed By: 10/16/24 1544 DD/ 154 TD/TT: Outdoor Fitness Trainer: [facility] [employer] Radiology Study observation (narrative) [facility] US OB BPP W NON-STRESS Ordered By: Radiologist Radiology on 10-16-2024 [facility] [employer] Work Phone: US OB FOLLOW UP [...] II, MD, PHD at 10-Oct-2024 07:43:20 AM [facility] Normal Not Available Comment on above: Order Comment: US OB SCAN FOR GROWTH Estimated Date of Delivery: 12/19/24 Gestational Age as of 09/25/2024: 27w6d Urinalysis macro (dipstick) panel (U)on 10-09-2024 Bilirubin, UA Negative Negative - 4(70) +++ mg/dL [facility] Blood, UA Negative Negative - 50 Roberto/mcL [facility] Clarity, UA Clear [facility] re Color, UA Yellow [facility] Glucose, UA Positive Negative - 1999(110) ++++ mg/dL [facility] Comment on above: 100 Interpretation and review of laboratory results Abnormal [facility] Ketones, UA Positive Negative - 160(16) ++++ mg/dL [facility] Comment on above: 15 Leukocytes, UA Negative Negative - 500+++ Christian/mcL [facility] Nitrite, UA Negative Negative - Positive [facility] pH, UA 7 5 - 9 [facility] Healthcar e Protein, UA Trace Negative - 1999(20) ++++ mg/dL [facility] Spec Grav, UA 1.025 1 - 1.03 [facility] Urobilinogen, UA 0.2 0.2 - 12 mg/dL [facility] GLUCOSE TOLERANCE 3 HOURon 0 10-07-2024 GLUCOSE TOLERANCE 3 HOUR mg/dL [facility] Comment on above: GLU FAST 83 (<95) Co l: 10/07/24 0909 GLU 1HR 163 (<180) Col: 10/07/24 1012 GLU 2HR 146 (<155) Col: 10/07/24 1112 GLU 3HR 83 (<140) Col: 10/07/24 1212 [facility] Healthcar e Urinalysis macro (dipstick) panel (U)on 09-25-2024 Bilirubin, UA Negative Negative - 4(70) +++ mg/dL [facility] Blood, UA Negative Negative - 50 Roberto/mcL [facility] Healthcare Clarity, UA Clear [facility]ca re Color, UA Yellow [facility] Healthcar e Glucose, UA Negative Negative - 1999(110) ++++ mg/dL [facility] Interpretation and review of laboratory results Abnormal [facility] Ketones, UA Negative Negative - 160(16) ++++ mg/dL [facility] Leukocytes, UA Positive Negative - 500+++ Christian/mcL [facility] Healthcare Comment on above: small Nitrite, UA Negative Negative - Positive [facility] Healthcare pH, UA 8.5 5 - 9 [facility] Protein, UA Negative Negative - 1999(20) ++++ mg/dL [facility] Spec Grav, UA 1.02 1 - 1.03 [facility] care Urobilinogen, UA 1.0 0.2 - 12 mg/dL [facility] Urinalysis macro (dipstick) panel (U)on 2024 Bilirubin, UA Negative Negative - 4(70) +++ mg/dL [facility] Blood, UA Negative Negative - 50 Roberto/mcL [facility] Healthcare Clarity, UA Clear [facility] Color, UA Yellow [facility] Glucose, UA Negative Negative - 1999(110) ++++ mg/dL [facility] Interpretation and review of laboratory results Abnormal [facility] Ketones, UA Negative Negative - 160(16) ++++ mg/dL [facility] Leukocytes, UA Moderate Negative - 500+++ Christian/mcL [facility] Healthcare Nitrite, UA Positive Negative - Positive [facility] pH, UA 7 5 - 9 [facility] Healthcar e Protein, UA Positive Negative - 1999(20) ++++ mg/dL [facility] Comment on above: 100 Spec Grav, UA 1.02 1 - 1.03 [facility] care Urobilinogen, UA 1.0 0.2 - 12 mg/dL [facility] Urinalysis macro (dipstick) panel (U)on 08-14-2024 Bilirubin, UA Negative Negative - 4(70) +++ mg/dL [facility] Blood, UA Negative Negative - 50 Roberto/mcL [facility] Healthcare Clarity, UA Clear [facility] Color, UA Yellow [facility] Glucose, UA Negative Negative - 1999(110) ++++ mg/dL [facility] Interpretation and review of laboratory results Abnormal [facility] Healthcare Ketones, UA Negative Negative - 160(16) ++++ mg/dL [facility] Healthcare Leukocytes, UA Negative Negative - 500+++ Christian/mcL [facility] Healthcare Nitrite, UA Negative Negative - Positive [facility] pH, UA 5.5 5 - 9 [facility] Protein, UA Negative Negative - 1999(20) ++++ mg/dL [facility] Spec Grav, UA 1.02 1 - 1.03 [facility] Urobilinogen, UA 1.0 0.2 - 12 mg/dL [facility] ALL CBC WITH AUTO DIFFon BASOPHILS ABSOLUTE AUTO 0 [facility] Basophils/100 WBC (Bld) 0.3 % 0.2 - 2.0 % [facility] Eosinophils/100 WBC (Bld) 0.9 % 0.9 - 7.0 % [facility] Erythrocyte distribution width (RBC) [Ratio] 14.8 % 11.0 - 15.0 % [facility] Hematocrit (Bld) [Volume fraction] 36.3 % 36.0 - 48.0 % [facility] e Hemoglobin (Bld) [Mass/Vol] 11.9 g/dL Low 12.0 - 16.0 g/dL [facility] IMMATURE GRANULOCYTES ABS AUTO 0.04 High [facility] Immature granulocytes/100 WBC (Bld) 0.4 % 0.0 - 0.5 % [facility] Interpretation and review of laboratory results Abnormal [facility] LYMPHOCYTES ABSOLUTE AUTO 1.6 [facility] Lymphocytes/100 WBC (Bld) 15 % Low 20.5 - 60.0 % [facility] MCH (RBC) [Entitic mass] 27.2 pg 26.7 - 34.0 pg [facility] MCHC (RBC) [Mass/Vol] 32.8 g/dL 29.9 - 35.2 g/dL [facility] MCV (RBC) [Entitic vol] 83.1 fL 81.0 - 99.0 fL [facility] MONOCYTES ABSOLUTE AUTO 0.8 [facility] Monocytes/100 WBC (Bld) 7.4 % 1.7 - 12.0 % [facility] NEUTROPHILS ABSOLUTE AUTO 7.8 High [facility] Neutrophils/100 WBC (Bld) 76 % High 43.0 - 75.0 % [facility] Platelet mean volume (Bld) [Entitic vol] 9.2 fL Low 9.5 - 13.5 fL [facility] # 0.1 [facility] TBH PLT 322 [facility] TB[facility] RBC 4.37 [facility] TBH WBC 10.3 [facility] e GLUCOSE 1 HOURon 07-30-2024 Glucose [Mass/Vol] 173 mg/dL High NINF - 13 0 mg/dL [facility] Interpretation and review of laboratory results Abnormal [facility] RECURRENT VAGINITIS (HTRX)on 07-18-2024 ATOPOBIUM VAGINAE 21.066 Abnormal [facility] ATOPOBIUM VAGINAE Detected Abnormal [facility] BVAB 2,3 (BACTERIAL VAGINOSIS ASSOCIATED BACTERIA 2, 3); MOBILUNCUS SPP 20.228 Abnormal [facility] BVAB 2,3 (BACTERIAL VAGINOSIS ASSOCIATED BACTERIA 2, 3); MOBILUNCUS SPP Detected Abnormal [facility] BLANCA ALBICANS, PARAPSILOSIS, TROPICALIS 0 [facility] BLANCA ALBICANS, PARAPSILOSIS, TROPICALIS Not detected [facility] BLANCA GLABRATA 0 [facility] BLANCA GLABRATA Not detected [facility] ealthcare BLANCA KRUSEI 0 [facility] Healt hcare BLANCA KRUSEI Not detected [facility] CHLAMYDIA TRACHOMATIS 0 [facility] CHLAMYDIA TRACHOMATIS Not detected [facility] ERMB, C; MEFA 26.225 Abnormal [facility] ERMB, C; MEFA Detected Abnormal [facility] GARDNERELLA VAGINALIS 21.744 Abnormal [facility] GARDNERELLA VAGINALIS Detected Abnormal [facility] Interpretation and review of laboratory results Abnormal [facility] MEGASPHAERA (TYPES 1, 2) 0 [facility] MEGASPHAERA (TYPES 1, 2) Not detected [facility] MYCOPLASMA GENITALIUM 0 [facility] MYCOPLASMA GENITALIUM Not detected [facility] NEISSERIA GONORRHOEAE 0 [facility] NEISSERIA GONORRHOEAE Not detected [facility] TET B, TET M 24.757 Abnormal [facility] T[facility] B, TET M Detected Abnormal [facility] TRICHOMONAS VAGINALIS 0 [facility] TRICHOMONAS VAGINALIS Not detected [facility] Urinalysis macro (dipstick) panel (U)on 07-17-2024 Bilirubin, UA Negative Negative - 4(70) +++ mg/dL [facility] Blood, UA Negative Negative - 50 Roberto/mcL [facility] Clarity, UA Clear [facility] Color, UA Yellow [facility] e Glucose, UA Negative Negative - 2000(110) ++++ mg/dL [facility] Interpretation and review of laboratory results Abnormal [facility] Ketones, UA Positive Negative - 160(16) ++++ mg/dL [facility] Leukocytes, UA Trace Negative - 500+++ Christian/mcL [facility] Nitrite, UA Negative Negative - Positive [facility] pH, UA 5.5 5 - 9 [facility] Healthcar e Protein, UA Trace Negative - 1999(20) ++++ mg/dL [facility] Spec Grav, UA 1.03 1 - 1.03 [facility] Urobilinogen, UA 0.2 0.2 - 12 mg/dL [facility] Urinalysis macro (dipstick) panel (U)on 06-17-2024 Bilirubin, UA Negative Negative - 4(70) +++ mg/dL [facility] Blood, UA Negative Negative - 50 Roberto/mcL [facility] Clarity, UA Clear [facility] re Color, UA Yellow [facility] e Glucose, UA Negative Negative - 1999(110) ++++ mg/dL [facility] Interpretation and review of laboratory results Abnormal [facility] Ketones, UA Negative Negative - 160(16) ++++ mg/dL [facility] Leukocytes, UA Negative Negative - 500+++ Christian/mcL [facility] Nitrite, UA Negative Negative - Positive [facility] pH, UA 6 5 - 9 [facility] Protein, UA Positive Negative - 1999(20) ++++ mg/dL [facility] Comment on above: 100 Spec Grav, UA 1.03 1 - 1.03 [facility] Urobilinogen, UA 0.2 0.2 - 12 mg/dL [facility] Health[facility] e ALL CBC WITH AUTO DIFFon BASOPHILS ABSOLUTE AUTO 0.0 [facility] Basophils/100 WBC (Bld) 0.4 % 0.2 - 2.0 % [facility] Eosinophils/100 WBC (Bld) 1.1 % 0.9 - 7.0 % [facility] Erythrocyte distribution width (RBC) [Ratio] 14.2 % 11.0 - 15.0 % [facility] Hematocrit (Bld) [Volume fraction] 39.3 % 36.0 - 48.0 % [facility] Hemoglobin (Bld) [Mass/Vol] 12.8 g/dL 12.0 - 16.0 g/dL [facility] IMMATURE GRANULOCYTES ABS AUTO 0.02 [facility] Immature granulocytes/100 WBC (Bld) 0.3 % 0.0 - 0.5 % [facility] Interpretation and review of laboratory results Abnormal [facility] LYMPHOCYTES ABSOLUTE AUTO 1.6 [facility] Lymphocytes/100 WBC (Bld) 21.5 % 20.5 - 60.0 % [facility] MCH (RBC) [Entitic mass] 26.8 pg 26.7 - 34.0 pg [facility] MCHC (RBC) [Mass/Vol] 32.6 g/dL 29.9 - 35.2 g/dL [facility] MCV (RBC) [Entitic vol] 82.2 fL 81.0 - 99.0 fL [facility] MONOCYTES ABSOLUTE AUTO 0.4 [facility] Monocytes/100 WBC (Bld) 5.1 % 1.7 - 12.0 % [facility] NEUTROPHILS ABSOLUTE AUTO 5.3 [facility] Neutrophils/100 WBC (Bld) 71.6 % 43.0 - 75.0 % [facility] Platelet mean volume (Bld) [Entitic vol] 9.2 fL Low 9.5 - 13.5 fL [facility] Healthc are TBH EO # 0.1 [facility] Healthcar e TB PLT 324 [facility] TB RBC 4.78 [facility] TB WBC 7.4 [facility]car e [facility] HCG ( test) Ql (U)o n 05-16-2024 Interpretation and review of laboratory results Abnormal [facility] Preg Test, Ur Positive [facility] Health care [facility] Healthcar e Cytology Cervical or vaginal smear or scraping studyOrdered By: Sheila Flowers on 04-07-2024 [facility] Health[facility] e Coding Summary.on 04-07-2022 Coding Summary. [id number] G h0bWw+PGhlYWQ+ZZ9OYWK vU37wsHJlaS7EV4rWDF0P LFZKNAZIXT8ETE2kkCJ4V VrkZ9AxsdZv RityyTQxSQ18DMd5QWE2h FiqEAcmeK0kkBUjM0p5Zr MdYY08qK78TKokPUBrLeR 3LjZpbjsgbWFy F2jkZbPbfJAjQoj+PHRhY mxlIHdpZHRoPScxMDAlJy HaxZeuDB1wEh5lWGOdONE vbGxhcHNlOiBj g7jbQVZsSMjbPE6omHbvB 0VifCM4ZWQmj0n8Jc49tW I+RZItGMG7yVbzFWsxk95 2JoSeg4aeDFS8 rMEoLVjvPEM8Q33is4U4K KXgJXIcUAY3kTU5tJ3fbW ygvpboZ6QzmQDeMoV0QXH 1jOZdjM5ciKlz wnldzH4cVun+X86TYK8SD XLJTB0KVjx3C2WaTeqpvU I+KM01TBErRU61xITkpIN hl2bdyEf6WmNo TVNdIHP5dPonAPcrk1NzU VLlK05rpUCdj0C9MCJoiV vtrRZzCiQduVO8nM7sKHg uvzhwi9xujhmi Ctazu0fpbc97eF21L30mH DclEWFfNZG2MNUePYOwnF ddfs3xeG0oBt4+UUmse3p vb7oohTs6WnKh MASfbwJmyQcvNNE7s7IpK o18U6ZrlEtrr2FkOcb4kd 56rIKju7R8zIR0IIugLVD uhL9hLZymGgS2 FYFhOnNxsN86kQSdKXqlU w3upXgzkRdcYH4eWWQzeq oiNXRtkP8nJFVukTFrnCy iUX9sWIAlqdjn u163RyOeKVN8UFWtaYWtG 7QsfS2rXvIuFDUjGNBaT5 VtfLPcZIzoE356AJboEsA 7RVDgleUqN2Pm SZGbyXehLkW4b5Y8Gg1Ib 1OjhsllRJU5SUhyGTB9Il R0FuByXqL2I2FlUms0IYA lvSacCI3dS6Ov UAEwptlburmlsWI3BWPzV PGdaA02oXOcXCcoGi1cl6 S6f636UXLbXLHkfR74Bd3 udDogMTBwdCBU lC2exnzke8qdxzheUfWrG OTyUAy1MCp9FKGiyWxoIu ZeOPN9LxT1ELI4qUOetC4 lkIdjbcpybQ4v Oyc+E84urB5dMPX7GDS4h freXOLrlgDsTT32FF30V7 RyPjwvdGFibGU+PGRpdiB dzTliSR7vVgEq z0fqu4IbWCaqH9FqOKHwP JqnRoj8CALcTZP2uMJ4iT 0hOLRmVMczp7S1mTA5P0X gsxOmnj7cq0mm YGVcYRedT23udFWxj6B3S TWfbJT8MNSsxAypMfHxgG 93Oyc+WDRcxZijj5BhZgd sl6uux1lvjYb9 DjIhGZQabqVygZznJER9a 3ZuXn17Q17mTOxaWBLmMW MlKBWaEORmeTpsgl0icP3 wIi8+PGNvbCB3 gWM4oJ5aQVMjJpK9QNloX 514HtQqlZDjQhuyu7ary6 hmwIf6NpFpLITyheWqbKd uSSL2o0SfRq81 H97jKHpnVZVdWIJhASEtT FPdxFgjgz0lnP8iUe1+PC 1mp4xnwn33sQ35vVE+PHR kPZS5jYjqBCws KKTnkP5tXYkhTgP8FNIyH sKhhV65pHDyACzxZg0jeL lirNraPB1lINBmwxgtb58 9WoEyn8teACVl wPZrBKamFAN1D21gd3L0V TPmVKPpHIQ6yLJ8bL4vzU lnbjogbGVmdDsgdmVydGl nZGooJIbxJ901 IHRvcDsnPlBhdGllbnQgT tUtXGi2Q3QaTka2ONNhaQ idGR7yiIQnGCtfOg9ygZl sfXdtLZ3sGUQv oamsg135EbSin5zbMAAoq AKtTOzmRMG4V05gz3B9JF GjUEMnRCS5eMJ7hS5neSk nbjogbGVmdDsg wkOfgFlvAOdyLQggV467C HRvcDsnPkJpcnRoIERhdG L0TK11VR30aFBvo0C4kQI 6V6JjZCCfppso lndplCI8BZTpCBZbtV66V y0giVtnAo3dRQUoQUN5EI PqaVCmW5BgyY4bCdOfYKM eMYNeK1GoqBZe QFtuO590IDxnKqX8GMPuk gVqS8AaYBEzyVgdEaB4d2 M0Vp1PH9A4VI99JP22eJH ie6E7zKG7C6Yz WJOjfyvofiwvlMT0NVZrJ ABteC13Pg5opAysRn5cVH WwWZC5VVYqzEUqO9ZlgS2 yOiAjMDAwMDAw K8NofYEeRQhnN708SXorC mN1KZYsmgJoB1EhJDHvsH qdPoU1e4R5Jm5XORx9UG0 2AX86oYTxf5U7 qHX1W1UlIUGxaygcsnorg EQ4CKBwIKCqsX18Vr4osL zkQn1dNXOgBHT4MMMepUF xI1WnbD0lNeMw HIZiBLGjL7BdaVCxGCzeL 917IOisTbK3PYYydjKfT2 McQNWcaXpaQuG7b8O5Dc0 SIHEcIV56RDH5 rBY1JL50CG03Z3OzAxhrp GFibGU+PHRhYmxlIHdpZH RoPScxMDAlJyBzdHlsZT0 jMf1dYHQsJSGo hXxahGKyMmGjb6qdTOXcQ GtdSW4czPvaI6HytKP2QF Oik3z2Hc23Q18vS8HjuVJ +DSMksPP1yJC5 yE1zVtDwApZ6YNeaX612X uAgbNUpUqmqk6rmy9adoX g7ZpK9SKBcjjOdyMbcWOK 5j1VsXm82D67u IHdpZHRoPSIxNSUiIHZhb Rtqdx1dbE7aLy9+PGNvbC D4eON1lG1vBhSpWjA8ZIl fX793SbLumRDb Tynng1mya5xzgSv4DaIxI CRxdaFaeMjiIMF0m9IdEs 67B8KqePtqh6VcMdj6so5 2wQSsp9Y8jYZ1 I2OwXSUfmnejqMViuEqyF V4hNOYtodoqRDUykK5yGH TvX7g5BlMkBwM5GClzI3F ugeT9STVnsQQe RVgsJYT7X91ic6K1XSVgP RPxKPQ7tLH0wK2zdXshma ogbGVmdDsgdmVydGljYWw vFQpqX421ATMh jRlvLKLjuZ9dNBKjiYWgg PsgJI6uLFOjbgqdQtMXDX BQLCBIQUxFWSBOSUNPTEU 5V6WoNdv4TELr mCegXQ9cbNVoWImrFl7sj BgfnSunPC8qLBDvtfeaSX MakJ8cAWZadNFmrSujRU8 kUEVeexrtx240 MaDiZTZ9DMPgfYEjS7Qny P3jTwTbUBCuTAZoY2OxwM WhQDlnM095XWdiWoM9UVP ffeWvA7KqSUBm yBaqNtX0g3Y5Ek6cIW7qQ L3eHKp2JI50BS14bAJqd0 S3gTO9I3KtAYDbbzlnbch hkNV3JTSlTZUc hJ14fLQsOObvNm7uq9F9z 920POSnEVPqwO06Vy0xkT fjFIOlaPPPiS4fztpdn7i vcjogIzAwMDAw MKa8YKi0BLAyuEnjQnLfB BI5BrR3KES9uTBsrD4evM jyhoamuM6hFjo+MjQgWWV yslM6Z2JjDet6 QCKpmHgtAY0opRWzDDbyH v7hdKqvrUkaCJ7gADVzfr lnRNAnaA8gSMDojUNusRa dRQ0gSABlpprk g643YoNoEDV6OWJqyVClW 2KhqJ8mZqBxPLHhZLDiU9 SxrLIdJQokT938YPrjIzM 4VDRjftVwR1Wk PIIudAgjJkT6d0W5Er1OL F8ptTJ5G3WnZlx2CRGjgK ouQK9mjWXeROwrNm9psIv sqCswSR2kRGIt jvmzIXMfjH9uFSKpdCWho EmzKB7cRILdburiv504Od EcYBJ4FLVjpTLgJ3GhmO4 yOiAjMDAwMDAw R8QciKYkCGtfV859KYsyB cM7LSMsvuMpP9AeZCVepV nrZaG6j7J0Ci6VmMUgMCM mFZ12PI12LM81 W2ExFcwerHBnnPK+PHRhY mxlIHdpZHRoPScxMDAlJy MhsVbfLB7aSj3eWQQkMLU vbGxhcHNlOiBj g2blICYeESlwSH0diArgP 0NkfBC1YBAsw0h0Oy18O8 7uO0CjiHZ+QOOrbTA4iQY 5iB8aDpOkMrW0 CSfoD251OfNhnLEhEpcyl 9oqt2oycDh4QvHzJRPzin QbbBefLHR1x1OvRm23C36 sIHdpZHRoPSIy VMNwZIFfgAgdnz7idT6eO i8+RHQxnKA8fPG0zL1aZu NmZxR0KYklK298JwMtxFB mKgldW66lC6An dXA+KEVtNrk8YTMckVayH R9xqDGeFEzwJw3tAWT8Xi HlKhYnHVsoQ6JhCMYtyzw ollyivYK0FHGp LSDtaP49Wm0cmAveWf1uP COjGKU4JOVkpXYkG0XvlY 7yHfCrGVVwKDLiR2PcaIO kPWodF507DXmz OoT8CJCinwRjL5WbBNBix RclFaT7w9C3Ux3McAqjbU ZuVP7jWwUtDJn4S9BpNju 4AKHbzCloRV0y bMCzHPkzKq3erXcvzCxmB E6lKNXndewsg760CpIiq3 ysFCRmpYIsPJxkUYM5G98 ob1W9FIVhMYBu ENU4eIO5iL5lkMhbmnwqi GVmdDsgdmVydGljYWwtYW ghP351YBTmdVmuCpKSGfa 1V1UuOjd0ETYi qTqpUU5fwJTvTNowWu3bs KdpkAlbME0wIQXtauuta8 08WaMoj3fvGRAurWGrOZc eAXQ0G37hx5Y9 QBTmOLVnKUL1tHL1xH3yt GlnbjogbGVmdDsgdmVydG tcKForPWamS239CKGuoAv sSi9SXlc7P9Ii Xbg9BGGrwPytDS4roRNmG MimNu1qrXghoKqeCS8jLA Nczjeta292PjUdy1yqOUE wcHQgVGltZXM7 M47cx4Z8DANcDNNbSVT5k EX0uH2xnXffdqkuoZFfaN mnefBetIjgBKuaJDdhZ34 6IHRvcDsnPlBh eWVyOjwvdGQ+NX32fz67F 0RiNkkqTww2KLUoKYB4uZ T1sM7pCTYtROtpp7O1fQK 3A9VqrvNczg9h b2xs (more content not included)... Normal [facility] XR Ankle 3+ Views Lefton [...] M.D. Transcribed by: JENN Technologist: STEVEN Normal [facility] Consent for Treatmenton Consent for Treatment [id number] .[id number]:127 Normal [facility] Physician Orderon 04-03-2022 Physician Order [id number] 1.00CD:127 Normal [facility] XR ANKLE LT MIN 3 Von 2021 XR ANKLE LT MIN 3 V EXAM: XR ANKLE LT MA N 3 V, XR FOOT LT MIN [...] by: MARQUIS HENSON Date: 2022-03-11 16:04 Normal [facility] PAP ACOG PANEL 2: 23 to 31on 10-24-2021 . . Normal [facility] Comment on above: Performed By: #### [id number] #### [facility] [address] [address] [address] Aura Griffiths Age Gdln ACOG Testing - Normal [facility] Comment on above: Performed By: #### [id number] #### [facility] [address] [address] [address] Aura Griffiths DIAGNOSIS: Comment Normal [facility] Comment on above: Result Comment: NEGA TIVE FOR INTRAEPITHELIAL LESION OR MALIGNANCY. Performed By: #### [id number] #### [facility] [address] [place] [address] Dr. Aura Griffiths Methodology: Comment [facility] Comment on above: Result Comment: This liquid based ThinPrep(R) pap test was screened with the use of an image guided system. Performed By: #### [id number] #### [facility] [address] [place] [address] Dr. Aura Griffiths Note: Comment Normal [facility] Comment on above: Result Comment: The Pap smear is a screening test designed to aid in the detection of premalignant and malignant conditions of the uterine cervix. It is not a diagnostic procedure and should not be used as the sole means of detecting cervical cancer. Both false-positive and false-negative reports do occur. . Performed By: #### [id number] #### [facility] [address] [place] [address] Dr. Aura Griffiths Performed by: Comment Normal [facility] Comment on above: Result Comment: Radha Trevino, Development Executive (ASCP) Performed By: #### [id number] #### [facility] [address] [place] [address] Dr. Aura Griffiths Reflex Criteria: Comment [facility] Comment on above: Result Comment: The HPV DNA reflex criteria were not met with this specimen result therefore, no HPV testing was performed. . Performed By: #### [id number] #### [facility] [address] [place] [address] Dr. Aura Griffiths Specimen adequacy: Comment Normal [facility] Comment on above: Result Comment: Sati sfactory for evaluation. Endocervical and/or squamous metaplastic cells (endocervical component) are present. Performed By: #### [id number] #### [facility] [address] [place] [address] Dr. Aura Griffiths Vital Signs Date Time Vital Sign Value Performing Clinician Aleksandr dobbs 11-26-2024 15:16-0400 Body mass index (BMI) [Ratio] 45.68 kg/m2 Carrie Ora DO Work Phone: [facility] 11-26-2024 15:16-0400 Body weight 120.71 kg Carrie Ora DO Work Phone: [facility] 11-26-2024 15:16-0400 Diastolic blood pressure 78 mm[Hg] Carrie Ora DO Work Phone: [facility] 11-26-2024 15:16-0400 Systolic blood pressure 124 mm[Hg] Carrie Ora DO Work Phone: [facility] 11-13-2024 10:40-0400 Body mass index (BMI) [Ratio] 46.17 kg/m2 Karla Freedom PA Work Phone: [facility] 11-13-2024 10:40-0400 Body weight 122.02 kg Karla Freedom PA Work Phone: [facility] 11-13-2024 10:40-0400 Diastolic blood pressure 80 mm[Hg] Karla Grant PA Work Phone: [facility] 11-13-2024 10:40-0400 Systolic blood pressure 130 mm[Hg] Karla Grant PA Work Phone: [facility] 11-06-2024 14:02-0500 Body mass index (BMI) [Ratio] 45.68 kg/m2 Karla Freedom PA Work Phone: [facility] 11-06-2024 14:02-0500 Body weight 120.71 kg Karla Grant PA Work Phone: [facility] 11-06-2024 14:02-0500 Diastolic blood pressure 80 mm[Hg] Karla Grant PA Work Phone: [facility] 11-06-2024 14:02-0500 Systolic blood pressure 126 mm[Hg] Karla Grant PA Work Phone: [facility] 10-23-2024 11:16-0500 Body mass index (BMI) [Ratio] 45.66 kg/m2 Karla Grant PA Work Phone: [facility] 10-23-2024 11:16-0500 Body weight 120.66 kg Karla OSPINA Work Phone: [facility] 10-23-2024 11:16-0500 Diastolic blood pressure 80 mm[Hg] Karla OSPINA Work Phone: [facility] 10-23-2024 11:16-0500 Systolic blood pressure 124 mm[Hg] Karla OSPINA Work Phone: [facility] 10-09-2024 10:43-0500 Body mass index (BMI) [Ratio] 46.17 kg/m2 Carrie Ora DO Work Phone: [facility] 10-09-2024 10:43-0500 Body weight 122.02 kg Carrie Ora DO Work Phone: [facility] 10-09-2024 10:43-0500 Diastolic blood pressure 70 mm[Hg] Carrie Ora DO Work Phone: [facility] 10-09-2024 10:43-0500 Systolic blood pressure 120 mm[Hg] Carrie Ora DO Work Phone: [facility] 09-25-2024 08:58-0500 Body mass index (BMI) [Ratio] 45.49 kg/m2 Carrie Ora DO Work Phone: [facility] 09-25-2024 08:58-0500 Body weight 120.2 kg Carrie Ora DO Work Phone: [facility] 09-25-2024 08:58-0500 Diastolic blood pressure 72 mm[Hg] Carrie Ora DO Work Phone: [facility] 09-25-2024 08:58-0500 Systolic blood pressure 122 mm[Hg] Carrie Ora DO Work Phone: [facility] 2024 09:48-0500 Body mass index (BMI) [Ratio] 44.97 kg/m2 Karla OSPINA Work Phone: [facility] 2024 09:48-0500 Body weight 118.84 kg Karla OSPINA Work Phone: [facility] 2024 09:48-0500 Diastolic blood pressure 70 mm[Hg] Karla OSPINA Work Phone: [facility] 2024 09:48-0500 Systolic blood pressure 120 mm[Hg] Karla OSPINA Work Phone: [facility] 08-14-2024 11:20-0500 Body mass index (BMI) [Ratio] 44.53 kg/m2 Carrie Ora DO Work Phone: [facility] 08-14-2024 11:20-0500 Body weight 117.66 kg Carrie Ora DO Work Phone: [facility] 08-14-2024 11:20-0500 Diastolic blood pressure 82 mm[Hg] Carrie Ora DO Work Phone: [facility] 08-14-2024 11:20-0500 Systolic blood pressure 124 mm[Hg] Carrie Ora DO Work Phone: [facility] 07-17-2024 10:48-0500 Body mass index (BMI) [Ratio] 45.28 kg/m2 Carrie Ora DO Work Phone: [facility] 07-17-2024 10:48-0500 Body weight 119.66 kg Carrie Ora DO Work Phone: [facility] 07-17-2024 10:48-0500 Diastolic blood pressure 70 mm[Hg] Carrie Ora DO Work Phone: [facility] 07-17-2024 10:48-0500 Systolic blood pressure 120 mm[Hg] Carrie Ora DO Work Phone: [facility] 06-17-2024 10:48-0400 Body mass index (BMI) [Ratio] 44.99 kg/m2 Carrie Ora DO Work Phone: [facility] 06-17-2024 10:48-0400 Body weight 118.9 kg Carrie Ora DO Work Phone: [facility] 06-17-2024 10:48-0400 Diastolic blood pressure 70 mm[Hg] Carrie Ora DO Work Phone: [facility] 06-17-2024 10:48-0400 Systolic blood pressure 120 mm[Hg] Carrie Ora DO Work Phone: [facility] 05-16-2024 09:16-0400 Body mass index (BMI) [Ratio] 46 kg/m2 [facility] 05-16-2024 09:16-0400 Body weight 121.56 kg [facility] Nurse [facility] 05-16-2024 09:16-0400 Diastolic blood pressure 70 mm[Hg] [facility] 05-16-2024 09:16-0400 Systolic blood pressure 120 mm[Hg] [facility] Encounters Encounter Date Encounter Type Care Provider Facility Start: 11-27-2024 End: 11-27-2024 Clinisync Result Encounter Carrie Ora DO Work Phone: [facility] External Department Unsolicited Start: 11-27-2024 End: 11-27-2024 Clinisync Result Encounter Carrie Ora DO Work Phone: [facility] External Department Unsolicited Start: 11-26-2024 End: 11-26-2024 flow sheet Carrie Ora DO Work Phone: [facility] Comment on above: Third trimester preg charley; 36 weeks gestation of Start: 11-26-2024 End: 11-26-2024 ambulatory CARRIE ORA Not Available Start: 11-26-2024 End: 11-26-2024 Bamboo flowsheet Carrie Ora DO Work Phone: [facility] Start: 11-26-2024 End: 12-01-2024 Bamboo flowsheet Carrie Roa DO Work Phone: [facility] Start: 11-26-2024 End: 12-01-2024 Clinisync Result Encounter Carrie Ora DO Work Phone: [facility] External Department Unsolicited Start: 11-20-2024 End: 11-20-2024 [...] [facility] External Department Unsolicited Start: 09-25-2024 End: 09-25-2024 Bamboo flowsheet Carrie Ora DO Work Phone: [facility] Start: 09-25-2024 End: 09-25-2024 Bamboo flowsheet Carrie Ora DO Work Phone: [facility] Start: 09-25-2024 End: 09-25-2024 flow sheet Carrie Ora DO Work Phone: [facility] Comment on above: Second trimester pre gnancy; 27 weeks gestation of ; Elevated glucose tolerance test Start: 09-25-2024 End: 09-25-2024 ambulatory CARRIE ORA Not Available Start: 2024 End: 2024 Bamboo flowsheet Karla OSPINA Work Phone: [facility] Start: 2024 End: 2024 Bamboo flowsheet Karla OSPINA Work Phone: [facility] Start: 2024 End: 2024 flow sheet Karla OSPINA Work Phone: [facility] Comment on above: 25 weeks gestation o f ; Second trimester ; UTI symptoms Start: 2024 End: 2024 ambulatory KARLA BURNS Not Available Start: 08-14-2024 End: 08-14-2024 Bamboo flowsheet Carrie Ora DO Work Phone: [facility] Start: 08-14-2024 End: 08-14-2024 Bamboo flowsheet Carrie Ora DO Work Phone: [facility] Start: 08-14-2024 End: 08-14-2024 flow sheet Carrie Ora DO Work Phone: [facility] Comment on above: Second trimester [...] Date Procedure Procedure Detail Performing Clinician Start: 11-27-2024 OB BPP W NON-STRESS Carrie Ora DO Work Phone: Start: 11-26-2024 Urnls dip stick/tabl et rgnt non-auto w/o micrscp Carrie Ora DO Work Phone: Start: 11-26-2024 ALL MISCELLANEOUS TEST Carrie Ora DO Work Phone: Start: 11-20-2024 US OB BPP W NON-STRESS Carrie Ora [...] Treatment Date Care Activity Detail Author Start: 12-03-2024 End: 12-03-2024 Patient encounter procedure 12/03/2024 2:30 PM EDT Routine [facility] [address] [facility] [place] [phone] Carrie aPyan, DO [address] [place], [place] [address] [address] [facility] Start: 11-26-2024 End: 11-26-2024 Patient encounter procedure [facility] Comment on above: Arrived Start: 11-26-2024 End: 11-26-2025 CULTURE, GROUP B STREP WITH SUSCEPTIBLITY CULTURE, GROUP B STREP WITH SUSCEPTIBLITY Lab Routine Third trimester Expected: 11/26/2024, Expires: 11/26/2025 [facility] Work Phone: Comment on above: Expected: 11/26/2024 , Expires: 11/26/2025 Start: 11-24-2024 End: 11-24-2024 Patient encounter procedure 11/24/2024 9:30 AM EDT Routine [facility] [address] [facility] [facility] [place] [address] Carrie Payan, DO [address] [place] [address] [facility] Start: 11-13-2024 End: 11-13-2024 Patient encounter procedure 11/13/2024 10:10 AM EDT Office Visit [facility] [address] [facility] [place] [address] Karla Burns PA [address] [facility] [place] [address] Arrived [facility] Comment on above: [...] unspecified fetus Expected: 10/09/2024 (Approximate), Expires: 10/09/2025 [facility] Work Phone: Comment on above: Expected: 10/09/2024 (Approximate), Expires: 10/09/2025 Start: 10-09-2024 End: 10-09-2025 US for US OB follow up transabdominal approach Imaging Routine Excessive growth affecting management of , antepartum, single or unspecified fetus Expected: 10/09/2024, Expires: 10/09/2025 [facility] Comment on above: Expected: 10/09/2024 , Expires: 10/09/2025 Start: 10-09-2024 End: 10-09-2024 Patient encounter procedure 10/09/2024 10:40 AM EST Routine [facility] [address] [facility] [facility] [place] [phone] Carrie Payan, DO [address] [place], [place] [id number] [facility] Start: 10-09-2024 End: 10-09-2024 Professional / ancillary services management 10/09/2024 10:00 AM EST Ancillary Procedure [facility] [address] [place] [address] [facility] Start: 09-25-2024 End: 09-25-2025 Measurement of glucose 3 hours after glucose challenge for glucose tolerance test Glucose tolerance, 3 hours Lab Routine Elevated glucose tolerance test Expected: 09/25/2024 (Approximate), Expires: 09/25/2025 [facility] Comment on above: Expected: 09/25/2024 (Approximate), Expires: 09/25/2025 Start: 09-25-2024 End: 09-25-2025 US for US OB follow up transabdominal approach Imaging Routine Second trimester 27 weeks gestation of Elevated glucose tolerance test Expected: 09/25/2024, Expires: 09/25/2025 [facility] Work Phone: Comment on above: Expected: [...] Ancillary Procedure [facility] [address] [place] [address] [facility] Start: 07-17-2024 End: [...] gestational diabetes Expected: 07/17/2024 (Approximate), Expires: 07/17/2025 [facility] Comment on above: Expected: 07/17/2024 (Approximate), Expires: 07/17/2025 Start: 07-17-2024 End: 07-17-2025 US for US OB ANATOMY SINGLE W US OB CERVICAL LENGTH Imaging Routine Screening, , for anatomic survey Expected: 07/17/2024 (Approximate), Expires: 07/17/2025 [facility] Comment on above: Expected: 07/17/2024 (Approximate), Expires: 07/17/2025 Start: 07-15-2024 End: 07-15-2024 Patient encounter procedure 07/15/2024 10:50 AM EST Routine [facility] [address] [place] [phone] Carrie Payan, [address] [facility] [place] [address] [facility] Start: 06-17-2024 End: 06-17-2024 Patient encounter procedure [facility] Comment on above: Arrived Start: 05-16-2024 End: 05-16-2025 ABO/Rh ABO/Rh Lab Routine Missed menses Expected: 05/16/2024 (Approximate), Expires: 05/16/2025 [facility] Comment on above: Expected: 05/16/2024 (Approximate), Expires: 05/16/2025 Start: 05-16-2024 End: 05-16-2025 Blood type and Indirect antibody screen panel - Blood Type and screen Lab Routine Missed menses Expected: 05/16/2024 (Approximate), Expires: 05/16/2025 [facility] Work Phone: Comment on above: Expected: 05/16/2024 (Approximate), Expires: 05/16/2025 Start: 05-16-2024 End: 05-16-2025 Drugs of abuse panel - Urine by Screen method Rapid drug screen, urine Lab Routine Encounter for supervision of normal first in first trimester , unspecified gestational age Expected: 05/16/2024 (Approximate), Expires: 05/16/2025 [facility] Comment on above: Expected: 05/16/2024 (Approximate), Expires: 05/16/2025 Start: 05-16-2024 End: 05-16-2025 US Pelvis transvaginal US OB transvaginal Imaging Routine Missed menses Expected: 05/16/2024 (Approximate), Expires: 05/16/2025 [facility] Comment on above: Expected: 05/16/2024 (Approximate), Expires: 05/16/2025 Bacteria identified in Urine by Culture Urine culture Microbiology Routine Missed menses Ordered: 05/16/2024 [facility] Comment on above: Ordered: 05/16/2024 Bacteria identified in Urine by Culture Urine culture Microbiology Routine UTI symptoms Ordered: 2024 [facility] Work Phone: Comment on above: Ordered: 2024 CBC W Auto Different ial panel - Blood CBC and differential Lab Routine Missed menses Ordered: 05/16/2024 [facility] Comment on above: Ordered: 05/16/2024 CHLAMYDIA TRACHOMATI S (GENITO/STI) CHLAMYDIA TRACHOMATIS (GENITO/STI) Lab Routine Exposure to STD Ordered: 07/17/2024 [facility] Comment on above: Ordered: 07/17/2024 Hemoglobin A1c/Hemoglobin.total in Blood Hemoglobin A1c Lab Routine Missed menses Ordered: 05/16/2024 [facility] Comment on above: Ordered: 05/16/2024 Hepatitis B virus surface Ag [Presence] in Serum or Plasma by Immunoassay Hepatitis B surface antigen Lab Routine Missed menses Ordered: 05/16/2024 [facility] Comment on above: Ordered: 05/16/2024 Hepatitis C virus Ab [Presence] in Serum or Plasma by Immunoassay Hepatitis C antibody Lab Routine Missed menses Ordered: 05/16/2024 [facility] Comment on above: Ordered: 05/16/2024 HIV-1/HIV-2 antigen/antibody combination immunoassay HIV-1 and HIV-2 antibodies Lab Routine Missed menses Ordered: 05/16/2024 [facility] Comment on above: Ordered: 05/16/2024 Neisseria gonorrhoea e DNA [Presence] in Unspecified specimen by XIOMARA with probe detection Neisseria gonorrhea DNA probe, direct Lab Routine Exposure to STD Ordered: 07/17/2024 [facility] Comment on above: Ordered: 07/17/2024 Reagin Ab [Presence] in Serum by RPR RPR Lab Routine Missed menses Ordered: 05/16/2024 [facility] Comment on above: Ordered: 05/16/2024 Rubella antibody, IgG Rubella an tibody, IgG Lab Routine Missed menses Ordered: 05/16/2024 [facility] Comment on above: Ordered: 05/16/2024 SURESWAB(R) ADVANCED VAGINITIS PLUS, TMA SURESWAB(R) ADVANCED VAGINITIS PLUS, TMA Pathology and Cytology Routine Vaginal discharge Ordered: 07/17/2024 [facility] Work Phone: Comment on above: Ordered: 07/17/2024 Payers Date Payer Category Payer Unknown [id number] 2023 [facility] [id number] 2023 Unknown BCBS BCBS xxxxxx [id number] 2023-Present [phone] [address] [place] [address] [id number] 2023 Unknown [id number] 1997 Unknown [id number] 93 1997 Unknown [id number] [id number] 93 1997 Unknown [id number] 2.16.840.1.558943.3.579.2.1 259 1997 Unknown [id number] 2.16.840.1.216112.3.579.2.1 259 1997 Unknown [id number] 2.16.840.1.878573.3.579.2.1 259 1997 Unknown [id number] 2.16.840.1.362456.3.579.2.1 259 1997 Unknown [id number] 2.16.840.1.010541.3.579.2.1 259 1997 Unknown [id number] 2.16.840.1.173067.3.579.2.1 259 1997 Unknown [id number] 2.16.840.1.322759.3.579.2.1 259 1997 Unknown [id number] 2.16.840.1.903307.3.579.2.1 259 1997 Unknown [id number] 2.16.840.1.969237.3.579.2.1 259 1997 Unknown [id number] 2.16.840.1.259440.3.579.2.1 259 1997 Unknown [id number] 2.16.840.1.055723.3.579.2.1 259 1997 Unknown [id number] 2.16.840.1.910865.3.579.2.1 259 1997 Unknown [id number] 2.16.840.1.255296.3.579.2.1 259 1959 Private Health Insurance [id number] 1959 Unknown [id number] Social History Date Type Detail Facility Start: 07-31-2023 Tobacco smoking stat [facility] Never smoked tobacco [facility] [...] Gender identity Identifies as female gender (finding) [facility] Clinical Notes 05-16-2024 to 11-26-2024 Keisha Segundo NP - 11/26/2024 2:40 PM BHAVESH Garcia - 11/13/2024 10:10 AM BHAVESH Garcia - 11/06/2024 1:50 PM BHAVESH Mares - 10/23/2024 10:50 AM BHAVESH Mares - 2024 9:30 AM EST Note Date & Type Note Facility 11-26-2024 History of Presen t illness Narrative Reason for Appointment: Patient ID: Kareen Forman is a 29 y.o. female who presents for Routine Visit Patient presents today for Return OB appointment. MEDICATIONS Current Outpatient Medications Medication Instructions aspirin 81 mg, Oral, Daily Preparation H 1 % cream Topical, 2 times daily, to affected area ALLERGIES No Known Allergies PROBLEMS Active Ambulatory Problems Diagnosis Date Noted No Active Ambulatory Problems Resolved Ambulatory Problems Diagnosis Date Noted No Resolved Ambulatory Problems Past Medical History: Diagnosis Date Depression screening Encounter for gynecological examination (general) (routine) without abnormal findings Family planning Insulin resistance Morbid obesity with BMI of 40.0-44.9, adult ([facility]) Negative test On Depo-Provera for contraception HISTORY PAST MEDICAL HISTORY SOCIAL HISTORY Past Medical History: Diagnosis Date Depression screening Encounter for gynecological examination (general) (routine) without abnormal findings Family planning Insulin resistance Morbid obesity with BMI of 40.0-44.9, adult ([facility]) Negative test On Depo-Provera for contraception Social [...] Negative. Musculoskeletal: Negative. Skin: Negative. Neurological: Negative. Psychiatric/Behavioral: Negative. Hematological: Negative. Endocrine: Negative. Allergic/Immunologic: Negative. OBJECTIVE [...] nursing note reviewed. Exam conducted with a director geophysical laboratory present. Vitals: Estimated body mass index is 45.68 kg/m as calculated from the following: Height as of 01/24/23: 5' 4 . Weight as of this encounter: 266 lb 1.9 oz. BP: 124/78 Patient's last menstrual period was 03/14/2024. ASSESSMENT & PLAN ICD-10-CM 1. Third trimester Z34.93 POCT urinalysis dipstick manually resulted CULTURE, GROUP B STREP WITH SUSCEPTIBLITY CULTURE, GROUP B STREP WITH SUSCEPTIBLITY 2. 36 weeks gestation of Z3A.36 POCT urinalysis dipstick manually resulted Return OB: Patient presents today for a routine obstetrics appointment. Patient is currently 36w5d . Patient states she is doing well but has complaints of being tired due to current . Patient has verbalizes frequent movement. labor precautions was discussed/given and patient was instructed to perform kick counts three times a day. Group Beta Strep culture obtained today. Orders Placed This Encounter Procedures CULTURE, GROUP B STREP WITH SUSCEPTIBLITY POCT urinalysis dipstick manually resulted Follow Up: Patient is to return to office in 1 week for routine OB appointment. Documented by Keisha Segundo NP on behalf of: Carrie Payan DO documented in this encounter [facility] 11-13-2024 History of Presen t illness Narrative [...] Morbid obesity with BMI of 40.0-44.9, adult ([facility]) Negative test On Depo-Provera for contraception HISTORY PAST MEDICAL HISTORY SOCIAL HISTORY Past Medical History: Diagnosis Date Depression screening Encounter for gynecological examination (general) (routine) without abnormal findings Family planning Insulin resistance Morbid obesity with BMI of 40.0-44.9, adult ([facility]) Negative test On Depo-Provera for contraception Social [...] nursing note reviewed. Exam conducted with a director geophysical laboratory present. Vitals: Estimated body mass index is [...] of: BHAVESH Javier documented in this encounter [facility] 11-06-2024 History of Presen [...] Morbid obesity with BMI of 40.0-44.9, adult ([facility]) Negative test On Depo-Provera for contraception HISTORY PAST MEDICAL HISTORY SOCIAL HISTORY Past Medical History: Diagnosis Date Depression screening Encounter for gynecological examination (general) (routine) without abnormal findings Family planning Insulin resistance Morbid obesity with BMI of 40.0-44.9, adult ([facility]) Negative test On Depo-Provera for contraception Social [...] nursing note reviewed. Exam conducted with a director geophysical laboratory present. Vitals: Estimated body mass index is [...] of: BHAVESH Javier documented in this encounter [facility] 10-23-2024 History of Presen [...] Morbid obesity with BMI of 40.0-44.9, adult ([facility]) Negative test On Depo-Provera for contraception HISTORY PAST MEDICAL HISTORY SOCIAL HISTORY Past Medical History: Diagnosis Date Depression screening Encounter for gynecological examination (general) (routine) without abnormal findings Family planning Insulin resistance Morbid obesity with BMI of 40.0-44.9, adult ([facility]) Negative test On Depo-Provera for contraception Social [...] of: BHAVESH Javier documented in this encounter [facility] 10-09-2024 History of Presen [...] Morbid obesity with BMI of 40.0-44.9, adult ([facility]) Negative test On Depo-Provera for contraception HISTORY PAST MEDICAL HISTORY SOCIAL HISTORY Past Medical History: Diagnosis Date Depression screening Encounter for gynecological examination (general) (routine) without abnormal findings Family planning Insulin resistance Morbid obesity with BMI of 40.0-44.9, adult ([facility]) Negative test On Depo-Provera for contraception Social [...] nursing note reviewed. Exam conducted with a director geophysical laboratory present. Vitals: Estimated body mass index is [...] Carrie Payan DO documented in this encounter [facility] 09-25-2024 History of Presen [...] Morbid obesity with BMI of 40.0-44.9, adult ([facility]) Negative test On Depo-Provera for contraception HISTORY PAST MEDICAL HISTORY SOCIAL HISTORY Past Medical History: Diagnosis Date Depression screening Encounter for gynecological examination (general) (routine) without abnormal findings Family planning Insulin resistance Morbid obesity with BMI of 40.0-44.9, adult ([facility]) Negative test On Depo-Provera for contraception Social [...] nursing note reviewed. Exam conducted with a director geophysical laboratory present. Vitals: Estimated body mass index is [...] Carrie Payan DO documented in this encounter [facility] 2024 History of Presen [...] Morbid obesity with BMI of 40.0-44.9, adult ([facility]) Negative test On Depo-Provera for contraception HISTORY PAST MEDICAL HISTORY SOCIAL HISTORY Past Medical History: Diagnosis Date Depression screening Encounter for gynecological examination (general) (routine) without abnormal findings Family planning Insulin resistance Morbid obesity with BMI of 40.0-44.9, adult ([facility]) Negative test On Depo-Provera for contraception Social [...] nursing note reviewed. Exam conducted with a director geophysical laboratory present. Vitals: Estimated body mass index is [...] of: BHAVESH Javier documented in this encounter [facility] 08-14-2024 History of Presen [...] Morbid obesity with BMI of 40.0-44.9, adult ([facility]) Negative test On Depo-Provera for contraception HISTORY PAST MEDICAL HISTORY SOCIAL HISTORY Past Medical History: Diagnosis Date Depression screening Encounter for gynecological examination (general) (routine) without abnormal findings Family planning Insulin resistance Morbid obesity with BMI of 40.0-44.9, adult ([facility]) Negative test On Depo-Provera for contraception Social [...] nursing note reviewed. Exam conducted with a director geophysical laboratory present. Vitals: Estimated body mass index is [...] Carrie Payan DO documented in this encounter [facility] 07-17-2024 History of Presen [...] Morbid obesity with BMI of 40.0-44.9, adult ([facility]) Negative test On Depo-Provera for contraception HISTORY PAST MEDICAL HISTORY SOCIAL HISTORY Past Medical History: Diagnosis Date Depression screening Encounter for gynecological examination (general) (routine) without abnormal findings Family planning Insulin resistance Morbid obesity with BMI of 40.0-44.9, adult ([facility]) Negative test On Depo-Provera for contraception Social [...] nursing note reviewed. Exam conducted with a director geophysical laboratory present. Vitals: Estimated body mass index is [...] Carrie Payan DO documented in this encounter [facility] 06-17-2024 History of Presen [...] Morbid obesity with BMI of 40.0-44.9, adult ([facility]) Negative test On Depo-Provera for contraception HISTORY PAST MEDICAL HISTORY SOCIAL HISTORY Past Medical History: Diagnosis Date Depression screening Encounter for gynecological examination (general) (routine) without abnormal findings Family planning Insulin resistance Morbid obesity with BMI of 40.0-44.9, adult ([facility]) Negative test On Depo-Provera for contraception Social [...] nursing note reviewed. Exam conducted with a director geophysical laboratory present. Vitals: Estimated body mass index is [...] Karla Burns PA-C documented in this encounter [facility] 05-16-2024 History of Presen [...] Morbid obesity with BMI of 40.0-44.9, adult ([facility]) Negative test On Depo-Provera for contraception Family [...] Shannan Peña LPN documented in this encounter [facility] Healthcare Evaluation note Diagnosis 13 weeks gestation [...] genital organs documented in this encounter [facility] Diagnosis Third trimester state, incidental 36 weeks gestation of documented in this encounter [...] AUTHOR AUTHOR'S ORGANIZ ATION 04/08/2022 [facility] DATE CREATED AUTHOR AUTHOR'S ORGANIZ ATION 11/27/2024 [facility] d[facility] Specialists [facility] Care Teams (unrecognized sec tion and content) Field Representative/Health Education Relationship Specialty Start Date End Date Karla Ortega MD [address] [id number] PCP - General Family Medicine 01/24/23 Field Representative/Health Education Relationship Specialty Start Date End Date Karla Ortega MD [address] [place] [phone] PCP - General Family Medicine 01/24/23 Field Representative/Health Education Relationship Specialty Start Date End Date Karla Ortega MD [address] [place] [phone] PCP - General Family Medicine 01/24/23 Field Representative/Health Education Relationship Specialty Start Date End Date Karla Ortega MD [address] [place] [phone] PCP - General Family Medicine 01/24/23 Field Representative/Health Education Relationship Specialty Start Date End Date Karla Ortega MD [address] [place] [address] PCP - General Family Medicine 01/24/23 Field Representative/Health Education Relationship Specialty Start Date End Date Karla Ortega MD [address] [place] [address] PCP - General [place] [facility] 01/24/23 Field Representative/Health Education Relationship Specialty Start Date End Date Karla Ortega MD [address] [place] [address] PCP - [facility] Medicine 01/24/23 Field Representative/Health Education Relationship Specialty Start Date End Date Karla Ortega MD [address] [place] [address] PCP - General [facility] Medicine 01/24/23 Field Representative/Health Education Relationship Specialty Start Date End Date Karla Ortega MD [address] [place] [address] PCP - [facility] Medicine 01/24/23 Field Representative/Health Education Relationship Specialty Start Date End Date Karla Ortega MD [address] [place] [address] PCP - General [facility] Medicine 01/24/23 Field Representative/Health Education Relationship Specialty Start Date End Date Karla Ortega MD [address] [place] [address] PCP - General Family Medicine 01/24/23 Reason [...] BE BASED ON THE PRIMARY CLINICAL RECORDS. [facility]. provides no warranty or guarantee of the accuracy or completeness of information in this document.
[2024-12-01 19:42] VITALS: BP 136/71; PULSE 85
== END 2024-12-01 19:50 | disposition home or self-care (01) ==
LOC: FBCO 18:53 → FBC 18:55
PROVIDERS: Visit Provider Obstetrics & Gynecology
DX: O36.63X0 Maternal care for excessive fetal growth, third trimester, not applicable or unspecified (principal); Z3A.37 37 weeks gestation of pregnancy
CPT/HCPCS: 59025

== ENCOUNTER 2024-12-04 10:55 | Outpatient (OUT) | payer BC, SELFPAY ==
--- NOTE | 2024-12-04 11:08 | US_ITS ---
The [address] [address] Patient Name: KAREEN FORMAN MRN: [id number] date: 1995 Sex: F Assigned Patient Location: Current Patient Location: Accession/Order Number: [id number] Exam Date: 12/04/2024 13:07 Report Date: 12/04/2024 13:14 At the request of: CARRIE ARREDONDO DO Procedure: US OB BPP w non-stress CLINICAL DATA: Excessive growth. ULTRASOUND OB GROWTH COMPARISON: 11/06/2024 There is a single live intrauterine gestation in cephalic presentation. There is cardiac and somatic activity with heart rate of 127 bpm. The amniotic fluid index measures 17.9 cm. This is in upper normal range. The following measurements were obtained: Biparietal diameter 9.3 cm 38 weeks 0 days 75% Head circumference 35.7 cm 41 week 6 days >97% Abdominal circumference 35.4 cm 39 weeks 2 days 94% Femur length 7.5 cm 38 weeks 3 days 65% The composite ultrasound age based these measurements is 39 weeks 3 days +/- 2 weeks 5 days. The estimated weight is 8 lbs. 3 oz. +/- 1 lb. 4 oz. This is within standard deviations of dates based on the comparison ultrasound. US/US OB BPP w non-stress IMPRESSION: SINGLE LIVE INTRAUTERINE GESTATION WITH ESTIMATED ULTRASOUND AGE OF 39 WEEKS 3 DAYS BIOPHYSICAL PROFILE: COMPARISON: 11/27/2024 There is a single live intrauterine gestation in cephalic presentation with cardiac heart rate of 127 bpm. Based on today's measurements, the estimated gestational age is 39 weeks 3 days. FINDINGS: TONE: 1 or more episodes of activity extension and flexion of extremity or opening and closing of the hand [Y] 2/2 GROSS BODY MOVEMENTS: 3 or more discrete body or limb movements [Y] 2/2 BREATHING MOVEMENTS: 1 or more episodes of breathing lasting at least 30 seconds [Y] 2/2 JENS: A single deepest vertical pocket of amniotic fluid greater than 2 cm [Y] 2/2 JENS: 17.9 cm. This is in normal range. Total score: 8/8 IMPRESSION: NORMAL BIOPHYSICAL PROFILE Impression dictated by: Bita Mcdonough M.D.12/04/2024 1:14 PM Dictation Location: [place] [address] Electronically authenticated by: [id number] Y Date: 12/04/2024 13:14
--- NOTE | 2024-12-04 11:08 | US_ITS ---
[address] [address] Patient Name: KAEREN FORMAN MRN: [id number] date: 1995 Sex: F Assigned Patient Location: [facility] Current Patient Location: Accession/Order Number: [id number] Exam Date: 12/04/2024 13:07 Report Date: 12/04/2024 13:14 At the request of: CARRIE ARREDONDO DO Procedure: US OB BPP w non-stress CLINICAL DATA: Excessive growth. ULTRASOUND OB GROWTH COMPARISON: 11/06/2024 There is a single live intrauterine gestation in cephalic presentation. There is cardiac and somatic activity with heart rate of 127 bpm. The amniotic fluid index measures 17.9 cm. This is in upper normal range. The following measurements were obtained: Biparietal diameter 9.3 cm 38 weeks 0 days 75% Head circumference 35.7 cm 41 week 6 days >97% Abdominal circumference 35.4 cm 39 weeks 2 days 94% Femur length 7.5 cm 38 weeks 3 days 65% The composite ultrasound age based these measurements is 39 weeks 3 days +/- 2 weeks 5 days. The estimated weight is 8 lbs. 3 oz. +/- 1 lb. 4 oz. This is within standard deviations of dates based on the comparison ultrasound. US/US OB growth IMPRESSION: SINGLE LIVE INTRAUTERINE GESTATION WITH ESTIMATED ULTRASOUND AGE OF 39 WEEKS 3 DAYS BIOPHYSICAL PROFILE: COMPARISON: 11/27/2024 There is a single live intrauterine gestation in cephalic presentation with cardiac heart rate of 127 bpm. Based on today's measurements, the estimated gestational age is 39 weeks 3 days. FINDINGS: TONE: 1 or more episodes of activity extension and flexion of extremity or opening and closing of the hand [Y] 2/2 GROSS BODY MOVEMENTS: 3 or more discrete body or limb movements [Y] 2/2 BREATHING MOVEMENTS: 1 or more episodes of breathing lasting at least 30 seconds [Y] 2/2 JENS: A single deepest vertical pocket of amniotic fluid greater than 2 cm [Y] 2/2 JENS: 17.9 cm. This is in normal range. Total score: 8/8 IMPRESSION: NORMAL BIOPHYSICAL PROFILE Impression dictated by: Bita Mcdonough M.D.12/04/2024 1:14 PM Dictation Location: [place] [address] Electronically authenticated by: [id number] Y Date: 12/04/2024 13:14
[2024-12-04 11:28] VITALS: BP 119/64; PULSE 95
== END 2024-12-04 12:00 | disposition home or self-care (01) ==
LOC: US 10:55 → FBC 10:56
PROVIDERS: Visit Provider Obstetrics & Gynecology
DX: O36.63X0 Maternal care for excessive fetal growth, third trimester, not applicable or unspecified (principal); Z3A.39 39 weeks gestation of pregnancy
CPT/HCPCS: 76816; 76818

== ENCOUNTER 2024-12-07 16:00 | Inpatient (IN) | payer BC, SELFPAY ==
[2024-12-07] VITALS (17 sets, daily range): BP systolic 104–137; BP diastolic 51–90; PULSE 81–110; TEMP 35.9–36.9
--- OUTSIDE RECORDS SUMMARY | 2024-12-07 16:04 | XMS_ITS | CCD ---
Author Organization [facility] Care Team Providers Care Colon Therapist Name Role Phone DR CARRIE PAYAN Primary [...] KARLA Attending Unavailable GRANT, KARLA Attending Unavailable GRANT, KARLA Attending Unavailable GRANT KARLA Attending Unavailable ORA, CARRIE Attending Unavailable ORA, CARRIE Attending Unavailable ORA, CARRIE Attending Unavailable GRANT, KARLA Attending Unavailable ORA, CARRIE Attending Unavailable CARRIE PAYAN Attending Unavailable Medications [...] 09/18/2024 Active hydrocortisone 10 mg/ml rectal cream (9 sources) Corticosteroid Start: 11-17-2024 Preparation H 1 [...] Test Name Value Interpretation Reference Range Facility No Panel InformationOrdered By: Radiologist Radiology on 12-04-2024 [facility] Work Phone: No Panel Informationon 12-04 Radiology Study observation (narrative) [facility] OB BPP W NON-STRESS on 12-04-2024 [place] [address] Ultrasound Report Signed Patient: KAREEN FORMAN MR#: [id number] : 1995 Acct:[id number] Age/Sex: 29 / F ADM Date: 12/04/24 Loc: US Attending Dr: Carrie Payan D.O. Ordering Physician: Carrie Payan D.O. Date of Service: 12/04/24 Procedure(s): US OB BPP w non-stress Accession Number(s): [id number] cc: KARLA ORTEGA; Carrie Payan D.O. [address] [address] Patient Name: KAREEN FORMAN MRN: [facility]:[id number] date: 1995 Sex: F Assigned Patient Location: US Current Patient Location: Accession/Order Number: [id number] Exam Date: 12/04/2024 13:07 Report Date: 12/04/2024 13:14 At the request of: CARRIE PAYAN DO Procedure: US OB BPP w non-stress CLINICAL DATA: Excessive growth. ULTRASOUND OB GROWTH COMPARISON: 11/06/2024 There is a single live intrauterine gestation in cephalic presentation. There is cardiac and somatic activity with heart rate of 127 bpm. The amniotic fluid index measures 17.9 cm. This is in upper normal range. The following measurements were obtained: Biparietal diameter 9.3 cm 38 weeks 0 days 75% Head circumference 35.7 cm 41 week 6 days >97% Abdominal circumference 35.4 cm 39 weeks 2 days 94% Femur length 7.5 cm 38 weeks 3 days 65% The composite ultrasound age based these measurements is 39 weeks 3 days +/- 2 weeks 5 days. The estimated weight is 8 lbs. 3 oz. +/- 1 lb. 4 oz. This is within standard deviations of dates based on the comparison ultrasound. US/US OB BPP w non-stress IMPRESSION: SINGLE LIVE INTRAUTERINE GESTATION WITH ESTIMATED ULTRASOUND AGE OF 39 WEEKS 3 DAYS BIOPHYSICAL PROFILE: COMPARISON: 11/27/2024 There is a single live intrauterine gestation in cephalic presentation with cardiac heart rate of 127 bpm. Based on today's measurements, the estimated gestational age is 39 weeks 3 days. FINDINGS: TONE: 1 or more episodes of [...] greater than 2 cm [Y] 2/2 JENS: 17.9 cm. This is in normal range. Total score: 8/8 IMPRESSION: NORMAL BIOPHYSICAL PROFILE Impression dictated by: Bita Mcdonough M.D.12/04/2024 1:14 PM Dictation Location: [place] [address] Electronically authenticated by: [id number] Y Date: 12/04/2024 13:14 Dictated By: Bita Mcdonough M.D. Signed By: 12/04/24 1317 DD/ 1314 TD/TT: Fixed Capital Clerk: [facility] Radiology, Radiologist, - 12/04/2024 [place] [address] Ultrasound Report Signed Patient: KAREEN FORMAN MR#: [id number] : 1995 Acct:[id number] Age/Sex: 29 / F ADM Date: 12/04/24 Loc: US Attending Dr: Carrie Payan D.O. Ordering Physician: Carrie Payan D.O. Date of Service: 12/04/24 Procedure(s): US OB BPP w non-stress Accession Number(s): [id number] cc: KARLA ORTEGA; Carrie Payan D.O. [place] [address] Patient Name: KAREEN FORMAN MRN: [facility]:[id number] date: 1995 Sex: F Assigned Patient Location: Current Patient Location: Accession/Order Number: [id number] Exam Date: 12/04/2024 13:07 Report Date: 12/04/2024 13:14 At the request of: CARRIE PAYAN DO Procedure: US OB BPP w non-stress CLINICAL DATA: Excessive growth. ULTRASOUND OB GROWTH COMPARISON: 11/06/2024 There is a single live intrauterine gestation in cephalic presentation. There is cardiac and somatic activity with heart rate of 127 bpm. The amniotic fluid index measures 17.9 cm. This is in upper normal range. The following measurements were obtained: Biparietal diameter 9.3 cm 38 weeks 0 days 75% Head circumference 35.7 cm 41 week 6 days >97% Abdominal circumference 35.4 cm 39 weeks 2 days 94% Femur length 7.5 cm 38 weeks 3 days 65% The composite ultrasound age based these measurements is 39 weeks 3 days +/- 2 weeks 5 days. The estimated weight is 8 lbs. 3 oz. +/- 1 lb. 4 oz. This is within standard deviations of dates based on the comparison ultrasound. US/US OB BPP w non-stress IMPRESSION: SINGLE LIVE INTRAUTERINE GESTATION WITH ESTIMATED ULTRASOUND AGE OF 39 WEEKS 3 DAYS BIOPHYSICAL PROFILE: COMPARISON: 11/27/2024 There is a single live intrauterine gestation in cephalic presentation with cardiac heart rate of 127 bpm. Based on today's measurements, the estimated gestational age is 39 weeks 3 days. FINDINGS: TONE: 1 or more episodes of [...] greater than 2 cm [Y] 2/2 JENS: 17.9 cm. This is in normal range. Total score: 8/8 IMPRESSION: NORMAL BIOPHYSICAL PROFILE Impression dictated by: Bita Mcdonough M.D.12/04/2024 1:14 PM Dictation Location: [place] [address] Electronically authenticated by: [id number] Y Date: 12/04/2024 13:14 Dictated By: Bita Mcdonough M.D. Signed By: 12/04/24 1317 DD/ 1314 TD/TT: Fixed Capital Clerk: [employer] OB GROWTHon 12-04-2024 [place] [address] Ultrasound Report Signed Patient: KAREEN FORMAN MR#: [id number] : 1995 Acct:[id number] Age/Sex: 29 / F ADM Date: 12/04/24 Loc: US Attending Dr: Carrie Payan D.O. Ordering Physician: Carrie Payan D.O. Date of Service: 12/04/24 Procedure(s): US OB growth Accession Number(s): [id number] cc: KARLA ORTEGA; Carrie Payan D.O. [place] [address] Patient Name: KAREEN FORMAN MRN: [facility]:[id number] date: 1995 Sex: F Assigned Patient Location: [facility] Current Patient Location: Accession/Order Number: [id number] Exam Date: 12/04/2024 13:07 Report Date: 12/04/2024 13:14 At the request of: CARRIE PAYAN DO Procedure: US OB BPP w non-stress CLINICAL DATA: Excessive growth. ULTRASOUND OB GROWTH COMPARISON: 11/06/2024 There is a single live intrauterine gestation in cephalic presentation. There is cardiac and somatic activity with heart rate of 127 bpm. The amniotic fluid index measures 17.9 cm. This is in upper normal range. The following measurements were obtained: Biparietal diameter 9.3 cm 38 weeks 0 days 75% Head circumference 35.7 cm 41 week 6 days >97% Abdominal circumference 35.4 cm 39 weeks 2 days 94% Femur length 7.5 cm 38 weeks 3 days 65% The composite ultrasound age based these measurements is 39 weeks 3 days +/- 2 weeks 5 days. The estimated weight is 8 lbs. 3 oz. +/- 1 lb. 4 oz. This is within standard deviations of dates based on the comparison ultrasound. US/US OB growth IMPRESSION: SINGLE LIVE INTRAUTERINE GESTATION WITH ESTIMATED ULTRASOUND AGE OF 39 WEEKS 3 DAYS BIOPHYSICAL PROFILE: COMPARISON: 11/27/2024 There is a single live intrauterine gestation in cephalic presentation with cardiac heart rate of 127 bpm. Based on today's measurements, the estimated gestational age is 39 weeks 3 days. FINDINGS: TONE: 1 or more episodes of [...] greater than 2 cm [Y] 2/2 JENS: 17.9 cm. This is in normal range. Total score: 8/8 IMPRESSION: NORMAL BIOPHYSICAL PROFILE Impression dictated by: Bita Mcdonough M.D.12/04/2024 1:14 PM Dictation Location: [place] [address] Electronically authenticated by: [id number] Y Date: 12/04/2024 13:14 Dictated By: Bita Mcdonough M.D. Signed By: 12/04/24 1317 DD/ 1314 TD/TT: Fixed Capital Clerk: [facility] Radiology, Radiologist, MD - 12/04/2024 [place] [address] Ultrasound Report Signed Patient: KAREEN FORMAN MR#: [id number] : 1995 Acct:[id number] Age/Sex: 29 / F ADM Date: 12/04/24 Loc: US Attending Dr: Carrie Payan D.O. Ordering Physician: Carrie Payan D.O. Date of Service: 12/04/24 Procedure(s): US OB growth Accession Number(s): [id number] cc: KARLA ORTEGA; Carrie Payan D.O. [address] [address] Patient Name: KAREEN FORMAN MRN: [facility]:[id number] date: 1995 Sex: F Assigned Patient Location: [facility] Current Patient Location: Accession/Order Number: [id number] Exam Date: 12/04/2024 13:07 Report Date: 12/04/2024 13:14 At the request of: CARRIE PAYAN DO Procedure: US OB BPP w non-stress CLINICAL DATA: Excessive growth. ULTRASOUND OB GROWTH COMPARISON: 11/06/2024 There is a single live intrauterine gestation in cephalic presentation. There is cardiac and somatic activity with heart rate of 127 bpm. The amniotic fluid index measures 17.9 cm. This is in upper normal range. The following measurements were obtained: Biparietal diameter 9.3 cm 38 weeks 0 days 75% Head circumference 35.7 cm 41 week 6 days >97% Abdominal circumference 35.4 cm 39 weeks 2 days 94% Femur length 7.5 cm 38 weeks 3 days 65% The composite ultrasound age based these measurements is 39 weeks 3 days +/- 2 weeks 5 days. The estimated weight is 8 lbs. 3 oz. +/- 1 lb. 4 oz. This is within standard deviations of dates based on the comparison ultrasound. US/US OB growth IMPRESSION: SINGLE LIVE INTRAUTERINE GESTATION WITH ESTIMATED ULTRASOUND AGE OF 39 WEEKS 3 DAYS BIOPHYSICAL PROFILE: COMPARISON: 11/27/2024 There is a single live intrauterine gestation in cephalic presentation with cardiac heart rate of 127 bpm. Based on today's measurements, the estimated gestational age is 39 weeks 3 days. FINDINGS: TONE: 1 or more episodes of [...] greater than 2 cm [Y] 2/2 JENS: 17.9 cm. This is in normal range. Total score: 8/8 IMPRESSION: NORMAL BIOPHYSICAL PROFILE Impression dictated by: Bita Mcdonough M.D.12/04/2024 1:14 PM Dictation Location: [place] [address] Electronically authenticated by: [id number] Y Date: 12/04/2024 13:14 Dictated By: Bita Mcdonough M.D. Signed By: 12/04/24 1317 DD/ 1314 TD/TT: Fixed Capital Clerk: [facility] [employer] ALL MISCELLANEOUS TESTon MISCELLANEOUS TEST COMMENT . [facility] Comment on above: Test Ordered: [id number] Strep Gp B Culture+Rflx Strep Gp B Culture+Rflx Negative CB Reference Range: Negative Centers for Disease Control and Prevention (CDC) and [place] [employer] of Obstetricians and Gynecologists (ACOG) guidelines [...] resistance to clindamycin is noted. Performed at: [facility] Lab[address] [id number] Credit And Collections Representative: Alexis Ortiz PhD, Phone: [phone] GROUP B STREP [id number] CULTURE, GROUP B STREP WITH SUSCEPTIBILITY [facility] OB BPP W NON-STRESS on 11-27-[address] [address] Ultrasound Report Signed Patient: KAREEN FORMAN MR#: [id number] : 1995 Acct:[id number] Age/Sex: 29 / F ADM Date: 11/27/24 Loc: US Attending Dr: Carrie Ora D.O. Ordering Physician: Carrie Payan D.O. Date of Service: 11/27/24 Procedure(s): US OB BPP w non-stress Accession Number(s): [id number] cc: KARLA ORTEGA; Carrie Payan D.O. The [address] [address] Patient Name: KAREEN FORMAN MRN: [facility]:[id number] date: 1995 Sex: F Assigned Patient Location: US Current Patient Location: LAB Accession/Order Number: [id number] Exam Date: 11/27/2024 14:32 Report Date: 11/27/2024 14:34 At the request of: CARRIE PAYAN DO Procedure: US OB BPP w non-stress BPP. Reason for exam: Excessive growth. COMPARISON: BPP 11/20/2024 TECHNIQUE: Transabdominal imaging of the gravid uterus was obtained. FINDINGS: Confectionery Cooker reports the BPP is 8 out of 8. JENS measures 15.9cm. heart rate 138 bpm. US/US OB BPP w non-stress Impression: BPP 8 out of 8. Impression dictated by: Claudio Schuster Jr., D.O.11/27/2024 2:34 PM Dictation Location: [place] [address] Electronically authenticated by: [id number] Y Date: 11/27/2024 14:34 Dictated By: Claudio Schuster M.D. Signed By: 11/27/24 1436 DD/ 1434 TD/TT: Fixed Capital Clerk: [facility] Radiology, Radiologist, MD - 11/27/2024 The [place] [id number] Ultrasound Report Signed Patient: KAREEN FORMAN MR#: [id number] : 1995 Acct:[id number] Age/Sex: 29 / F ADM Date: 11/27/24 Loc: US Attending Dr: Carrie Payan D.O. Ordering Physician: Carrie Payan D.O. Date of Service: 11/27/24 Procedure(s): US OB BPP w non-stress Accession Number(s): [id number] cc: KARLA ORTEGA; Carrei Payan D.O. [address] [address] Patient Name: KAREEN FORMAN MRN: [facility]:[id number] date: 1995 Sex: F Assigned Patient Location: US Current Patient Location: LAB Accession/Order Number: [id number] Exam Date: 11/27/2024 14:32 Report Date: 11/27/2024 14:34 At the request of: CARRIE PAYAN DO Procedure: US OB BPP w non-stress BPP. Reason for exam: Excessive growth. COMPARISON: BPP 11/20/2024 TECHNIQUE: Transabdominal imaging of the gravid uterus was obtained. FINDINGS: Confectionery Cooker reports the BPP is 8 out of 8. JENS measures 15.9cm. heart rate 138 bpm. US/US OB BPP w non-stress Impression: BPP 8 out of 8. Impression dictated by: Claudio Schuster Jr., D.O.11/27/2024 2:34 PM Dictation Location: [place] [address] Electronically authenticated by: [id number] Y Date: 11/27/2024 14:34 Dictated By: Claudio Schuster M.D. Signed By: 11/27/24 1436 DD/ 33 TD/TT: Fixed Capital Clerk: [facility] Radiology Study observation (narrative) [facility] US OB BPP W NON-STRESS Ordered By: Radiologist Radiology on 11-27-2024 [facility] Work Phone: Urinalysis macro (dipstick) panel (U)on 11-26-2024 Bilirubin, UA Negative Negative - 4(70) +++ mg/dL [facility] Blood, UA Positive Negative - 50 Roberto/mcL [facility] Clarity, UA Clear [facility] Color, UA Yellow [facility] Glucose, UA Negative Negative - 2000(110) ++++ mg/dL [facility] Interpretation and review of laboratory results Abnormal [facility] Ketones, UA Negative Negative - 160(16) ++++ mg/dL [facility] Leukocytes, UA Trace Negative - 500+++ Christian/mcL [facility] Nitrite, UA Negative Negative - Positive [facility] pH, UA 7.5 5 - 9 [facility] Protein, UA Trace Negative - 2000(20) ++++ mg/dL [facility] Spec Grav, UA 1.025 1 - 1.03 [facility] Urobilinogen, UA 1.0 0.2 - 12 mg/dL [facility] US OB BPP W NON-STRESS on 11-20-2024 [place] [address] Ultrasound Report Signed Patient: KAREEN FORMAN MR#: [id number] : 1995 Acct:[id number] Age/Sex: 29 / F ADM Date: 11/20/24 Loc: [place] [address]- Attending Dr: Carrie Payan D.O. Ordering Physician: Carrie Payan D.O. Date of Service: 11/20/24 Procedure(s): US OB BPP w non-stress Accession Number(s): [id number] cc: KARLA ORTEGA; Carrie Payan D.O. [place] [address] Patient Name: KAREEN FORMAN MRN: [facility]:[id number] date: 1995 Sex: F Assigned Patient Location: [facility] [place] [facility] [place]/Order Number: [id number] Exam Date: 11/20/2024 11:45 Report Date: 11/20/2024 11:46 At the request of: CARRIE PAYAN DO Procedure: US OB BPP w non-stress BPP. Reason for exam: Excessive growth. COMPARISON: BPP 10/23/2024 TECHNIQUE: Transabdominal imaging of the gravid uterus was obtained. FINDINGS: Confectionery Cooker reports the BPP is 8 out of 8. JENS measures 14.2cm. heart rate 134 bpm. US/US OB BPP w non-stress Impression: BPP 8 out of 8. Impression dictated by: Jaime Hernandez Jr.OBunny11/20/2024 11:46 AM Dictation Location: [employer] Electronically authenticated by: [id number] Y Date: 11/20/2024 11:46 Dictated By: Claudio Schuster M.D. Signed By: 11/20/24 1149 DD/ 1146 TD/TT: Fixed Capital Clerk: [facility] Radiology, Radiologist, - 11/20/2024 [place] [address] Ultrasound Report Signed Patient: KAREEN FORMAN MR#: [id number] : 1995 Acct:[id number] Age/Sex: 29 / F ADM Date: 11/20/24 Loc: [place] [address]: Carrie Payan D.O. Ordering Physician: Carrie Payan D.O. Date of Service: 11/20/24 Procedure(s): US OB BPP w non-stress Accession Number(s): [id number] cc: KARLA ORTEGA; Carrie Payan D.O. The [place] [address] Patient Name: KAREEN FORMAN MRN: [facility]:[id number] date: 1995 Sex: F Assigned Patient Location: [facility] [place] [facility] [place]/Order Number: [id number] Exam Date: 11/20/2024 11:45 Report Date: 11/20/2024 11:46 At the request of: CARRIE PAYAN DO Procedure: US OB BPP w non-stress BPP. Reason for exam: Excessive growth. COMPARISON: BPP 10/23/2024 TECHNIQUE: Transabdominal imaging of the gravid uterus was obtained. FINDINGS: Confectionery Cooker reports the BPP is 8 out of 8. JENS measures 14.2cm. heart rate 134 bpm. US/US OB BPP w non-stress Impression: BPP 8 out of 8. Impression dictated by: Claudio Schuster Jr., D.O.11/20/2024 11:46 AM Dictation Location: [place] [address] Electronically authenticated by: [id number] Y Date: 11/20/2024 11:46 Dictated By: Claudio Schuster M.D. Signed By: 11/20/24 1149 DD/ 1146 TD/TT: Fixed Capital Clerk: [facility] Radiology Study observation (narrative) [facility] US OB BPP W NON-STRESS Ordered By: Radiologist Radiology on 11-20-2024 [facility] Work Phone: US OB BPP W NON-STRESS on 11-13-2024 [place] [address] Ultrasound Report Signed Patient: AKREEN FORMAN MR#: [id number] : 1995 Acct:[id number] Age/Sex: 29 / F ADM Date: 11/13/24 Loc: [facility] [address]: Carrie Payan D.O. Ordering Physician: Carrie Payan D.O. Date of Service: 11/13/24 Procedure(s): US OB BPP w non-stress Accession Number(s): [id number] cc: KARLA ORTEGA; Carrie Payan D.O. [place] [address] Patient Name: KAREEN FORMAN MRN: [facility]:[id number] date: 1995 Sex: F Assigned Patient Location: US Current Patient Location: US Accession/Order Number: [id number] Exam Date: 11/13/2024 11:58 Report Date: 11/13/2024 11:59 At the request of: CARRIE PAYAN DO Procedure: US OB BPP w non-stress BIOPHYSICAL PROFILE: CLINICAL INFORMATION: Excessive growth COMPARISON: 11/06/2024 There is a single live intrauterine gestation in cephalic presentation. The reported gestational age is 34 weeks 6 days. The heart rate [id number] beats per minute. FINDINGS: TONE: 1 or [...] Bita Mcdonough M.D.11/13/2024 11:59 AM Dictation Location: [place] [address] Electronically authenticated by: [id number] Y Date: 11/13/2024 11:59 Dictated By: Bita Mcdonough M.D. Signed By: 11/13/24 1202 DD/ 1159 TD/TT: Fixed Capital Clerk: [facility] Radiology, Radiologist, MD - 11/13/2024 [place] [address] Ultrasound Report Signed Patient: KAREEN FORMAN MR#: [id number] : 1995 Acct:[id number] Age/Sex: 29 / F ADM Date: 11/13/24 Loc: [place] [address]: Carrie Payan D.O. Ordering Physician: Carrie Payan D.O. Date of Service: 11/13/24 Procedure(s): US OB BPP w non-stress Accession Number(s): [id number] cc: KARLA ORTEGA; Carrie Payan D.O. The [place] [id number] Patient Name: KAREEN FORMAN MRN: [facility]:[id number] date: 1995 Sex: F Assigned Patient Location: US Current Patient Location: US Accession/Order Number: [id number] Exam Date: 11/13/2024 11:58 Report Date: 11/13/2024 11:59 At the request of: CARRIE PAYAN DO Procedure: US OB BPP w non-stress BIOPHYSICAL PROFILE: CLINICAL INFORMATION: Excessive growth COMPARISON: 11/06/2024 There is a single live intrauterine gestation in cephalic presentation. The reported gestational age is 34 weeks 6 days. The heart rate [id number] beats per minute. FINDINGS: TONE: 1 or [...] Bita Mcdonough M.D.11/13/2024 11:59 AM Dictation Location: [place] [address] Electronically authenticated by: [id number] Y Date: 11/13/2024 11:59 Dictated By: Bita Mcdonough M.D. Signed By: 11/13/24 1202 DD/ 1159 TD/TT: Fixed Capital Clerk: [facility] Radiology Study observation (narrative) [facility] US OB BPP W NON-STRESS Ordered By: Radiologist Radiology on 11-13-2024 [facility] Work Phone: Urinalysis macro (dipstick) panel (U)on 11-13-2024 Bilirubin, UA Negative Negative - 4(70) +++ mg/dL [facility] Blood, UA Negative Negative - 50 Roberto/mcL [facility] Clarity, UA Clear [facility] Color, UA Yellow [facility] Glucose, UA Negative Negative - 1999(110) ++++ mg/dL [facility] Interpretation and review of laboratory results Abnormal [facility] Ketones, UA Negative Negative - 160(16) ++++ mg/dL [facility] Leukocytes, UA Positive Negative - 500+++ Christian/mcL [facility] Comment on above: small Nitrite, UA Negative Negative - Positive [facility] pH, UA 6.5 5 - 9 [facility] Protein, UA Negative Negative - 1999(20) ++++ mg/dL [facility] Spec Grav, UA 1.02 1 - 1.03 [facility] Urobilinogen, UA 0.2 0.2 - 12 mg/dL [facility] Urinalysis macro (dipstick) panel (U)on 11-06-2024 Bilirubin, UA Negative Negative - 4(70) +++ mg/dL [facility] Blood, UA Negative Negative - 50 Roberto/mcL [facility] Clarity, UA Clear [facility] Color, UA Yellow [facility] Glucose, UA Negative Negative - 1999(110) ++++ mg/dL [facility] Interpretation and review of laboratory results Abnormal [facility] Ketones, UA Negative Negative - 160(16) ++++ mg/dL [facility] Leukocytes, UA Trace Negative - 500+++ Christian/mcL [facility] Nitrite, UA Negative Negative - Positive [facility] pH, UA 6.5 5 - 9 [facility] Protein, UA Negative Negative - 1999(20) ++++ mg/dL [facility] Spec Grav, UA 1.025 1 - 1.03 [facility] Urobilinogen, UA 2.0 0.2 - 12 mg/dL [facility] US OB BPP W NON-STRESS on 10-31-2024 [place] [address] Ultrasound Report Signed Patient: KAREEN FORMAN MR#: [id number] : 1995 Acct:[id number] Age/Sex: 29 / F ADM Date: 10/30/24 Loc: Attending Dr: Carrie Payan D.O. Ordering Physician: Carrie Payan D.O. Date of Service: 10/30/24 Procedure(s): US OB BPP w non-stress Accession Number(s): [id number] cc: KARLA ORTEGA; Carrie Payan D.O. [address] [address] Patient Name: KAREEN FORMAN MRN: [facility]:[id number] date: 1995 Sex: F Assigned Patient Location: [facility] Current Patient Location: Accession/Order Number: [id number] Exam Date: 10/31/2024 10:24 Report Date: 10/31/2024 10:25 At the request of: CARRIE PAAYN DO Procedure: US OB BPP w non-stress BIOPHYSICAL PROFILE: CLINICAL INFORMATION: EXCESSIVE GROWTH AFFECTING O36.60X0 COMPARISON: 10/23/2024 There is a single live intrauterine gestation in cephalic presentation. Reported age is 32 weeks 6 days. The heart rate [id number] ( beats per minute. FINDINGS: TONE: 1 [...] NORMAL BIOPHYSICAL PROFILE Impression dictated by: Bita Mcdnoough M.D.10/31/2024 10:25 AM Dictation Location: [employer] Electronically authenticated by: [id number] Y Date: 10/31/2024 10:25 Dictated By: Bita Mcdonough M.D. Signed By: 10/31/24 1027 DD/ 1025 TD/TT: Fixed Capital Clerk: [facility] Radiology, Radiologist, - 10/31/2024 [place] [address] Ultrasound Report Signed Patient: KAREEN FORMAN MR#: [id number] : 1995 Acct:[id number] Age/Sex: 29 / F ADM Date: 10/30/24 Loc: US Attending Dr: Carrie Payan D.O. Ordering Physician: Carrie Payan D.O. Date of Service: 10/30/24 Procedure(s): US OB BPP w non-stress Accession Number(s): [id number] cc: KARLA ORTEGA; Carrie Payan D.O. The [place] [address] Patient Name: KAREEN FORMAN MRN: [id number]:[id number] date: 1995 Sex: F Assigned Patient Location: [facility] Current Patient Location: Accession/Order Number: [id number] Exam Date: 10/31/2024 10:24 Report Date: 10/31/2024 10:25 At the request of: CARRIE PAYAN DO Procedure: US OB BPP w non-stress BIOPHYSICAL PROFILE: CLINICAL INFORMATION: EXCESSIVE GROWTH AFFECTING O36.60X0 COMPARISON: 10/23/2024 There is a single live intrauterine gestation in cephalic presentation. Reported age is 32 weeks 6 days. The heart rate stefogja287 ( beats per minute. FINDINGS: TONE: 1 [...] Bita Mcdonough M.D.10/31/2024 10:25 AM Dictation Location: [place] [address] Electronically authenticated by: [id number] Y Date: 10/31/2024 10:25 Dictated By: Bita Mcdonough M.D. Signed By: 10/31/24 1027 DD/ 1025 TD/TT: Fixed Capital Clerk: [facility] [employer] Radiology Study observation (narrative) [facility] US OB BPP W NON-STRESS Ordered By: Radiologist Radiology on 10-31-2024 [facility] [employer] Work Phone: US OB BPP W NON-STRESS on 10-23-2024 [place] [address] Ultrasound Report Signed Patient: KAREEN FORMAN MR#: [id number] : 1995 Acct:[id number] Age/Sex: 29 / F ADM Date: 10/23/24 Loc: US Attending Dr: Carrie Payan D.O. Ordering Physician: Carrie Payan D.O. Date of Service: 10/23/24 Procedure(s): US OB BPP w non-stress Accession Number(s): [id number] cc: KARLA ORTEGA; Carrie Payan D.O. [place] [address] Patient Name: KAREEN FORMAN MRN: [facility]:[id number] date: 1995 Sex: F Assigned Patient Location: [facility] Current Patient Location: US Accession/Order Number: [id number] Exam Date: 10/23/2024 13:18 Report Date: 10/23/2024 22:17 At the request of: CARRIE PAYAN DO Procedure: US OB BPP w non-stress BPP. Reason for exam: Excessive growth. COMPARISON: BPP 10/16/2024. TECHNIQUE: Transabdominal imaging of the gravid uterus was obtained. FINDINGS: Confectionery Cooker reports the BPP is 8 out of 8. JENS measures 13.1 cm. heart rate 161 bpm. US/US OB BPP w non-stress Impression: BPP 8 out of 8. Correlation with NST is recommended. Impression dictated by: Claudio Schuster Jr., D.O.10/23/2024 10:17 PM Dictation Location: [place] [address] Electronically authenticated by: [id number] Y Date: 10/23/2024 22:17 Dictated By: Claudio Schuster M.D. Signed By: 10/23/242218 DD/ 16 TD/TT: Fixed Capital Clerk: [facility] Radiology, Radiologist, - 10/23/2024 [place] [address] Ultrasound Report Signed Patient: KAREEN FORMAN MR#: [id number] : 1995 Acct:[id number] Age/Sex: 29 / F ADM Date: 10/23/24 Loc: US Attending Dr: Carrie Payan D.O. Ordering Physician: Carrie Payan D.O. Date of Service: 10/23/24 Procedure(s): US OB BPP w non-stress Accession Number(s): [id number] cc: KARLA ORTEGA; Carrie Payan D.O. [place] [address] Patient Name: KAREEN FORMAN MRN: [facility]:[id number] date: 1995 Sex: F Assigned Patient Location: [facility] Current Patient Location: US Accession/Order Number: [id number] Exam Date: 10/23/2024 13:18 Report Date: 10/23/2024 22:17 At the request of: CARRIE PAYAN DO Procedure: US OB BPP w non-stress BPP. Reason for exam: Excessive growth. COMPARISON: BPP 10/16/2024. TECHNIQUE: Transabdominal imaging of the gravid uterus was obtained. FINDINGS: Confectionery Cooker reports the BPP is 8 out of 8. JENS measures 13.1 cm. heart rate 161 bpm. US/US OB BPP w non-stress Impression: BPP 8 out of 8. Correlation with NST is recommended. Impression dictated by: Claudio Schuster Jr., D.O.10/23/2024 10:17 PM Dictation Location: [place] [address] Electronically authenticated by: [id number] Y Date: 10/23/2024 22:17 Dictated By: Claudio Schuster M.D. Signed By: 10/23/242218 DD/ 16 TD/TT: Fixed Capital Clerk: [facility] Radiology Study observation (narrative) [facility] US OB BPP W NON-STRESS Ordered By: Radiologist Radiology on 10-23-2024 [facility] Work Phone: Urinalysis macro (dipstick) panel (U)on 10-23-2024 Bilirubin, UA Negative Negative - 4(70) +++ mg/dL [facility] Blood, UA Negative Negative - 50 Roberto/mcL [facility] Clarity, UA Clear [facility] Color, UA Yellow [facility] Glucose, UA Negative Negative - 1999(110) ++++ mg/dL [facility] Interpretation and review of laboratory results Abnormal [facility] Ketones, UA Negative Negative - 160(16) ++++ mg/dL [facility] Leukocytes, UA Trace Negative - 500+++ Christian/mcL [facility] Nitrite, UA Negative Negative - Positive [facility] pH, UA 6.5 5 - 9 [facility] Protein, UA Negative Negative - 1999(20) ++++ mg/dL [facility] Spec Grav, UA 1.025 1 - 1.03 [facility] Urobilinogen, UA 1.0 0.2 - 12 mg/dL [facility] US OB BPP W NON-STRESS on 10-16-2024 [place] [address] Ultrasound Report Signed Patient: KAREEN FORMAN MR#: [id number] : 1995 Acct:[id number] Age/Sex: 29 / F ADM Date: 10/16/24 Loc: US Attending Dr: Carrie Payan D.O. Ordering Physician: Carrie Payan D.O. Date of Service: 10/16/24 Procedure(s): US OB BPP w non-stress Accession Number(s): [id number] cc: KARLA ORTEGA; Carrie Payan D.O. The [place] [id number] Patient Name: KAREEN FORMAN MRN: [id number]:[id number] date: 1995 Sex: F Assigned Patient Location: US Current Patient Location: Accession/Order Number: [id number] Exam Date: 10/16/2024 13:57 Report Date: 10/16/2024 [...] Signed By: 10/16/24 1544 DD/ 1541 TD/TT: Fixed Capital Clerk: [facility] Radiology, Radiologist, MD - 10/16/2024 [place] [address] Ultrasound Report Signed Patient: KAREEN FORMAN MR#: [id number] : 1995 Acct:[id number] Age/Sex: 29 / F ADM Date: 10/16/24 Loc: US Attending Dr: Carrie Payan D.O. Ordering Physician: Carrie Payan D.O. Date of Service: 10/16/24 Procedure(s): US OB BPP w non-stress Accession Number(s): [id number] cc: KARLA ORTEGA; Carrie Payan D.O. [place] [address] Patient Name: KAREEN FORMAN MRN: [facility]:[id number] date: 1995 Sex: F Assigned Patient Location: US Current Patient Location: Accession/Order Number: [id number] Exam Date: 10/16/2024 13:57 Report Date: 10/16/2024 [...] Signed By: 10/16/24 1544 DD/ 154 TD/TT: Fixed Capital Clerk: [facility] Radiology Study observation (narrative) [facility] US OB BPP W NON-STRESS Ordered By: Radiologist Radiology on 10-16-2024 [facility] Work Phone: US OB FOLLOW UP TRANSABDOMIN [...] is measuring large for gestational age. Electronically Signed:Alfonso y signed by ERIC ROONEY II, MD, PHD at 10-Oct-2024 07:43:20 AM [facility] Normal Not Available Comment on above: Order Comment: US OB SCAN FOR GROWTH Estimated Date of Delivery: 12/19/24 Gestational Age as of 09/25/2024: 27w6d Urinalysis macro (dipstick) panel (U)on 10-09-2024 Bilirubin, UA Negative Negative - 4(70) +++ mg/dL [facility] Blood, UA Negative Negative - 50 Roberto/mcL [facility] Clarity, UA Clear [facility] Color, UA Yellow [facility] Glucose, UA Positive Negative - 1999(110) ++++ mg/dL [facility] Comment on above: 100 Interpretation and review of laboratory results Abnormal [facility] Ketones, UA Positive Negative - 160(16) ++++ mg/dL [facility] Comment on above: 15 Leukocytes, UA Negative Negative - 500+++ Christian/mcL [facility] Nitrite, UA Negative Negative - Positive [facility] pH, UA 7 5 - 9 [facility] Protein, UA Trace Negative - 1999(20) ++++ mg/dL [facility] Spec Grav, UA 1.025 1 - 1.03 [facility] Urobilinogen, UA 0.2 0.2 - 12 mg/dL [facility] GLUCOSE TOLERANCE 3 HOURon 0 10-07-2024 GLUCOSE TOLERANCE 3 HOUR mg/dL [facility] Comment on above: GLU FAST 83 (<95) Co l: 10/07/24 0909 GLU 1HR 163 (<180) Col: 10/07/24 1012 GLU 2HR 146 (<155) Col: 10/07/24 1112 GLU 3HR 83 (<140) Col: 10/07/24 1212 [facility] Urinalysis macro (dipstick) panel (U)on 09-25-2024 Bilirubin, UA Negative Negative - 4(70) +++ mg/dL [facility] Blood, UA Negative Negative - 50 Roberto/mcL [facility] Clarity, UA Clear [facility] Color, UA Yellow [facility] Glucose, UA Negative Negative - 1999(110) ++++ mg/dL [facility] Interpretation and review of laboratory results Abnormal [facility] Ketones, UA Negative Negative - 160(16) ++++ mg/dL [facility] Leukocytes, UA Positive Negative - 500+++ Christian/mcL [facility] Comment on above: small Nitrite, UA Negative Negative - Positive [facility] pH, UA 8.5 5 - 9 [facility] Protein, UA Negative Negative - 1999(20) ++++ mg/dL [facility] Spec Grav, UA 1.02 1 - 1.03 [facility] Urobilinogen, UA 1.0 0.2 - 12 mg/dL [facility] Urinalysis macro (dipstick) panel (U)on 2024 Bilirubin, UA Negative Negative - 4(70) +++ mg/dL [facility] Blood, UA Negative Negative - 50 Roberto/mcL [facility] Clarity, UA Clear [facility] Color, UA Yellow [facility] Glucose, UA Negative Negative - 1999(110) ++++ mg/dL [facility] Interpretation and review of laboratory results Abnormal [facility] Ketones, UA Negative Negative - 160(16) ++++ mg/dL [facility] Leukocytes, UA Moderate Negative - 500+++ Christian/mcL [facility] Nitrite, UA Positive Negative - Positive [facility] pH, UA 7 5 - 9 [facility] Protein, UA Positive Negative - 1999(20) ++++ mg/dL [facility] Comment on above: 100 Spec Grav, UA 1.02 1 - 1.03 [facility] Urobilinogen, UA 1.0 0.2 - 12 mg/dL [facility] Urinalysis macro (dipstick) panel (U)on 08-14-2024 Bilirubin, UA Negative Negative - 4(70) +++ mg/dL [facility] Blood, UA Negative Negative - 50 Roberto/mcL [facility] Clarity, UA Clear [facility] Color, UA Yellow [facility] Glucose, UA Negative Negative - 1999(110) ++++ mg/dL [facility] Interpretation and review of laboratory results Abnormal [facility] Ketones, UA Negative Negative - 160(16) ++++ mg/dL [facility] Leukocytes, UA Negative Negative - 500+++ Christian/mcL [facility] Nitrite, UA Negative Negative - Positive [facility] pH, UA 5.5 5 - 9 [facility] Protein, UA Negative Negative - 1999(20) ++++ mg/dL [facility] Spec Grav, UA 1.02 1 - 1.03 [facility] Urobilinogen, UA 1.0 0.2 - 12 mg/dL [facility] ALL CBC WITH AUTO DIFFon BASOPHILS ABSOLUTE AUTO 0 N [facility] Basophils/100 WBC (Bld) 0.3 % 0.2 - 2.0 % [facility] Eosinophils/100 WBC (Bld) 0.9 % 0.9 - 7.0 % [facility] Erythrocyte distribution width (RBC) [Ratio] 14.8 % 11.0 - 15.0 % [facility] Hematocrit (Bld) [Volume fraction] 36.3 % 36.0 - 48.0 % [facility] Hemoglobin (Bld) [Mass/Vol] 11.9 g/dL Low 12.0 - 16.0 g/dL [facility] IMMATURE GRANULOCYTES ABS AUTO 0.04 High [facility] Immature granulocytes/100 WBC (Bld) 0.4 % 0.0 - 0.5 % [facility] Interpretation and review of laboratory results Abnormal [facility] LYMPHOCYTES ABSOLUTE AUTO 1.6 [facility] Lymphocytes/100 WBC (Bld) 15 % Low 20.5 - 60.0 % [facility] MCH (RBC) [Entitic mass] 27.2 pg 26.7 - 34.0 pg [facility] MCHC (RBC) [Mass/Vol] 32.8 g/dL 29.9 - 35.2 g/dL [facility] MCV (RBC) [Entitic vol] 83.1 fL 81.0 - 99.0 fL [facility] MONOCYTES ABSOLUTE AUTO 0.8 [facility] Monocytes/100 WBC (Bld) 7.4 % 1.7 - 12.0 % [facility] NEUTROPHILS ABSOLUTE AUTO 7.8 High [facility] Neutrophils/100 WBC (Bld) 76 % High 43.0 - 75.0 % [facility] Platelet mean volume (Bld) [Entitic vol] 9.2 fL Low 9.5 - 13.5 fL [facility] TB EO # 0.1 [facility] TB PLT 322 [facility] RBC 4.37 [facility] WBC 10.3 [facility] GLUCOSE 1 HOURon 07-30-2024 Glucose [Mass/Vol] 173 mg/dL High NINF - 13 0 mg/dL [facility] Interpretation and review of laboratory results Abnormal [facility] RECURRENT VAGINITIS (HTRX)on 07-18-2024 ATOPOBIUM VAGINAE 21.066 Abnormal [facility] ATOPOBIUM VAGINAE Detected Abnormal [facility] BVAB 2,3 (BACTERIAL VAGINOSIS ASSOCIATED BACTERIA 2, 3); MOBILUNCUS SPP 20.228 Abnormal [facility] BVAB 2,3 (BACTERIAL VAGINOSIS ASSOCIATED BACTERIA 2, 3); MOBILUNCUS SPP Detected Abnormal [facility] BLANCA ALBICANS, PARAPSILOSIS, TROPICALIS 0 [facility] BLANCA ALBICANS, PARAPSILOSIS, TROPICALIS Not detected [facility] BLANCA GLABRATA 0 [facility] BLANCA GLABRATA Not detected [facility] BLANCA KRUSEI 0 [facility] BLANCA KRUSEI Not detected [facility] CHLAMYDIA TRACHOMATIS 0 [facility] CHLAMYDIA TRACHOMATIS Not detected N [facility] ERMB, C; MEFA 26.225 Abnormal [facility] ERMB, C; MEFA Detected Abnormal [facility] GARDNERELLA VAGINALIS 21.744 Abnormal [facility] GARDNERELLA VAGINALIS Detected Abnormal [facility] Interpretation and review of laboratory results Abnormal [facility] MEGASPHAERA (TYPES 1, 2) 0 [facility] MEGASPHAERA (TYPES 1, 2) Not detected [facility] MYCOPLASMA GENITALIUM 0 [facility] MYCOPLASMA GENITALIUM Not detected [facility] NEISSERIA GONORRHOEAE 0 [facility] NEISSERIA GONORRHOEAE Not detected N [facility] TET B, TET M 24.757 Abnormal [facility] TET B, TET M Detected Abnormal [facility] TRICHOMONAS VAGINALIS 0 [facility] TRICHOMONAS VAGINALIS Not detected N [facility] Urinalysis macro (dipstick) panel (U)on 07-17-2024 Bilirubin, UA Negative Negative - 4(70) +++ mg/dL [facility] Blood, UA Negative Negative - 50 Roberto/mcL [facility] Clarity, UA Clear [facility] Color, UA Yellow [facility] Glucose, UA Negative Negative - 1999(110) ++++ mg/dL [facility] Interpretation and review of laboratory results Abnormal [facility] Ketones, UA Positive Negative - 160(16) ++++ mg/dL [facility] Leukocytes, UA Trace Negative - 500+++ Christian/mcL [facility] Nitrite, UA Negative Negative - Positive [facility] pH, UA 5.5 5 - 9 [facility] Protein, UA Trace Negative - 1999(20) ++++ mg/dL [facility] Spec Grav, UA 1.03 1 - 1.03 [facility] Urobilinogen, UA 0.2 0.2 - 12 mg/dL [facility] Urinalysis macro (dipstick) panel (U)on 06-17-2024 Bilirubin, UA Negative Negative - 4(70) +++ mg/dL [facility] Blood, UA Negative Negative - 50 Roberto/mcL [facility] Clarity, UA Clear [facility] Color, UA Yellow [facility] Glucose, UA Negative Negative - 1999(110) ++++ mg/dL [facility] Interpretation and review of laboratory results Abnormal [facility] Ketones, UA Negative Negative - 160(16) ++++ mg/dL [facility] Leukocytes, UA Negative Negative - 500+++ Christian/mcL [facility] Nitrite, UA Negative Negative - Positive [facility] pH, UA 6 5 - 9 [facility] Protein, UA Positive Negative - 1999(20) ++++ mg/dL [facility] Comment on above: 100 Spec Grav, UA 1.03 1 - 1.03 [facility] Urobilinogen, UA 0.2 0.2 - 12 mg/dL [facility] ALL CBC WITH AUTO DIFFon BASOPHILS ABSOLUTE AUTO 0.0 [facility] Basophils/100 WBC (Bld) 0.4 % 0.2 - 2.0 % [facility] Eosinophils/100 WBC (Bld) 1.1 % 0.9 - 7.0 % [facility] Erythrocyte distribution width (RBC) [Ratio] 14.2 % 11.0 - 15.0 % [facility] Hematocrit (Bld) [Volume fraction] 39.3 % 36.0 - 48.0 % [facility] Hemoglobin (Bld) [Mass/Vol] 12.8 g/dL 12.0 - 16.0 g/dL [facility] IMMATURE GRANULOCYTES ABS AUTO 0.02 [facility] Immature granulocytes/100 WBC (Bld) 0.3 % 0.0 - 0.5 % [facility] Interpretation and review of laboratory results Abnormal [facility] LYMPHOCYTES ABSOLUTE AUTO 1.6 [facility] Lymphocytes/100 WBC (Bld) 21.5 % 20.5 - 60.0 % [facility] MCH (RBC) [Entitic mass] 26.8 pg 26.7 - 34.0 pg [facility] MCHC (RBC) [Mass/Vol] 32.6 g/dL 29.9 - 35.2 g/dL [facility] MCV (RBC) [Entitic vol] 82.2 fL 81.0 - 99.0 fL [facility] MONOCYTES ABSOLUTE AUTO 0.4 N [facility] Monocytes/100 WBC (Bld) 5.1 % 1.7 - 12.0 % [facility] NEUTROPHILS ABSOLUTE AUTO 5.3 [facility] Neutrophils/100 WBC (Bld) 71.6 % 43.0 - 75.0 % [facility] Platelet mean volume (Bld) [Entitic vol] 9.2 fL Low 9.5 - 13.5 fL [facility] TBH EO # 0.1 [facility] TBH PLT 324 [facility] RBC 4.78 [facility] WBC 7.4 [facility] HCG ( test) Ql (U)o n 05-16-2024 Interpretation and review of laboratory results Abnormal [facility] Preg Test, Ur Positive [facility] Cytology Cervical or vaginal smear or scraping studyOrdered By: Sheila Flowers on 04-07-2024 [facility] Coding Summary.on 04-07-2022 Coding Summary. CD:[id number] Gh0bWw+PGhlYWQ+PE1FV AIfG08fsNDkaD1IQ2nDS T9UVCBROOQGPT1AKY3ib PY6SZroZ3WwpvYv QhrxyFBdTT92NWu3PVL7 tJeiDJvczB0tfTJpR7m4 RqHiOF95tN23BWghYTSx LlZ5KgIyyhmaeCWu Z9ahAkSheKGvGrh+PHRh YmxlIHdpZHRoPScxMDAl BjDjlMcmOZ1tZp7bMCQw LWNvbGxhcHNlOiBj d1iiRQMhMIgrCW7asElo R0ZylAL0NDUry2t0Rq34 dHI+FCVkOGG4cWsdTFyg x153QnPcg2bvEYO9 kJPmOSfvHYH2L57mr6Y4 QFZpQIOwPQG1lZW4gC6a qUhfruwlD7KsiZAmUkX7 LKJ9nXPehZ9wnCpg lnqliR6uKcc+W46RUM4V BGKMII8UXnl8G4LiSvjg dHI+RW36VEHkOX51bLLr vMDfk1tdvEr4HqMh BIFlZVZ5gRjeNMqoa0Qv FTPrO33ioOOlj9W9ONFz dQfjpGTlAxSeiHV3nQ6y VIeiosgrg9tflzyw Jtbby3nsmf12xI35J53i QAywEYXfYTG9AAMaEZXl lXcibx0cwH1zYi5+IDxj r2gop4hgeQd1IqSj KNWhucHipDkkQVA4s2Pr Aa90Y8ZklKkmp0XlCqa5 rb61jJCte1H0wIM5DQkw OIEckH3hHZdpKlX9 KEWrCpPweW29dCHzXAnw Lm7inAhhtEhqPJ5mTKGa mksnPOMplE1nEMIrwWUy jCueAQ2rHUPwatlx o635YcCpVNU3LYJmyUIj L7EzmP7dEaGtEZGjFLYn A2VchXJaNSrnZ991ZUxm CtL7XPFhosBeJ4Ks ITCbjNkpIdJ2f5Y3Xc6V c1CpxfhlPAQ4HGzoCWW4 VeA6IeCfCkN4P1SrHad7 WVMueExiNW0aT2Jy TECfrvqwiutsdPS0PZVv IBTadI82nCKfVUwvQx9y a7U4k481OQElHMRlkP36 Wb2avBvzELIdeZNK pI9hvrifm4pqjyjhMuCw LNQsKQm0APh2CHLdwVcj SeQaVIM5VvN7PSS3uCAj tR9ukPqoegvixL5c Oyc+I69bhU5dIFV5FQX0 bygpMGKhmmAvZW94CV43 S7MvJynseOXgxRJ+PGRp khOpwOenSS8nIxCq e7myh9NwKGqkQ5LrDRDj ZHlkMvb9JFLbUCD2fMH7 yL6mHQAvPGtaa1D3cTY0 N4QwgcXxqi0st2pj DUNcWTbwO68tcNEty5M4 MVSznMJ2ZTZwwKkuSvFo rX52Njj+YGDlbSigd2Aj Zkbjy8eur6gzlPy7 IjMwJSIgdmFsaWduPSJ0 h4GnLp61T42nKZwqLHDu GJLkUOIuRZQhvKtmzd5f xG9nKp9+PGNvbCB3 wVN1dO1bBKThVjV1UOec C175DgTxjFXbZxqvt2gb m4jifBe6LuUmXLLwlvIs eTskXGH0j4DwDl17 R47wNWcnTHOuUSVoNYSs PQKrdXobkv2xqV6mGz4+ RE9mk1cjrt21kZ75qZE+ REPjXJS3sJtlVBbb ZDWbuT5nZKnaDsF9QCIs ShHjmC10oGRlQBmhUq0f jDdqeFnqID7yPIEwayxl y494ZyJdz2ykXSGo sPArIEdaQYL4Z22gg6I3 VOHuUMJqFYR5nQW6aZ9n bGlnbjogbGVmdDsgdmVy tCcxMSzrACkpD181 IHRvcDsnPlBhdGllbnQg EsWdLIl5L1BqXim3TEAu pUiiTG2krDNeMWonKv7r bBjpgQtlGQ2dKZLs aweoy173NpKuv9dyGONz sKPgQPmaWUI2J47jr7J7 XOPpZREsMCH2oSX7hM8w bGlnbjogbGVmdDsg ogLjpKdwDNjwRNhwB446 IHRvcDsnPkJpcnRoIERh gCP4LF26PO56rJWtt5E4 pUP8H4OqSVFumzlj ezaijTN8IOZkFIJlxG93 Dc2lfVydBw4eWZHbIYL4 SHIvwKHoD6KbrU0gPuEb FTUvUMYvQ5BfqUDn FObjW118RImsPrQ3LICx xsLcQ4HyUDRwuEuvDzB6 v4N3Qz8TO7D5KE17FH32 uETyq5G5kID6W7Qw YRGrypfpuqnkyXE1ZKJq IANasC67Dp2yePruVy5w MQMdSDS9ULCdrXMfV0Dw kY8oZbVgYXUeALHi B2GfzEJuITtmQ633GBca NcX6LCIwgyCbI1NmWRMx nVaeOvX9w9B4Lg4CJQv9 WT75ZR11zWIvx5O8 jMB2K2XdGSVmpaqhoqny eNK6SQMfXPHuuC69Am2e eYhnEw7qXHBxKJX4GCNv oKTiN7KumA2dWkVd ICToETXnA9KrvEUjUFdf B290UFryFiJ3XENyuwBr G5TzQEQhsTtgRgX7m8L2 Ob8LZFUmGR05WMG2 bWD9EX41VM32W4DcZrhe dGFibGU+PHRhYmxlIHdp ZHRoPScxMDAlJyBzdHls CE2wDa0bSCFcRZCl tXjsuHIwQqSnf0kkPTYe YOsvLH3xrLftD2LxmXI8 QNIdh8r9Jv01H29nN7Cd dXA+MBIsiVK9iDM5 oG8lOlIiAhL3GGbxB601 GuWegDRzXlmgw1kcg1yo nYg1ZpA6ZNOzbhNizPwb MFG6i9RjIq46T44f IHdpZHRoPSIxNSUiIHZh bWrdmo1fgO5sJo5+PGNv mAY3fIM8pN4zCmZaZiY5 GHddW079MsZfbJId Djtop1xko7posFr1JlGc KHQgakKkuJreGAT5k9Bb Ve80C1HcmKxpv0SjHpk8 sj75cHIjg2I8nCI5 L6FoAZTkenlixWXikSib AI0uKKYfnezpCWJwfN2l BNUkT9b3ItAfDoT7XYmm F7InvlL8ICIjkEIo YRhnTQB8C91un5U7EQUi LAYiNKV2vTR0jE7slUdy bjogbGVmdDsgdmVydGlj CBrqEKrmT036OUTg vTwqYBYphD9iMAHhxWKl aXbkTM5zZQKqxqadGgCY QVBQLCBIQUxFWSBOSUNP ENA4E4QcTeb9WBYa yDwwRM2clQGcREkoUk8r jPkhvMyxQG4zRGVdyxve BFGdqY4eKTSpmMEvfPco TJ6lMVBbflbns755 BiLtZLJ0FIJrbTPdR8Lz fA2kIhMmXODjVDUiF8Em cZGgAAooU748FGbgLdC7 JOYhrpDaC4LsGSXn gOjwSgF4f4Q1Hd1qYL6e XF6uJVr6GT73BT54uQQx g7Q4qDL3C1LoXSKieujl sceauVS3UKAsSHFg iJ93nCRlHHuwYr1qf9T8 d597IHLjGHVwdI93Hb7x cDzvJLXslFINqO8maryo e9wdfswpDaVgEAQd BLh7IOt7YWSilTtvHpPm LIJ0UbG6VKW1jTIhjG5v jJcbscvvyX5sMxw+MjQg SUArxsC4R4EyGqw7 LHEhkUwvXQ6dnILuXMpt Wx5joEsziOpfMF3aFPLo pfbqYWNrzN5zSLXpgFHf hPftKP6jLZUgzdqg j781SoTqCRL6ZCGrfYIq V8PsnQ2rOeHkYDFfPOOb A6HihGIjUYuqG757ZYez FqK7JXYmebSzU0Tm IJMcyUddDzK2q1M5Pg8E AM5jdPB1U7BlIrm1TVLh dZkzPG1pqDCnIZvjSo0o mPtszMrkYL0lKMQh yrhaIPYpqM3wKTZutPAv kScgXR4bTUXseuxuy553 VwZoXRZ1IJObvUOtC1Zm tG2pSdXvGQBmJWIm E2HtkJRcEOexU812WZge ZpG3XPFyppPeX9NeYLSy pSfxWmA9a0W3Fi0HaGJl JZGnNU58OS15SG94 H1TiMcfnuTJtlPY+PHRh YmxlIHdpZHRoPScxMDAl YmJeyQngGY6uNn0lFJWy LWNvbGxhcHNlOiBj g6qvCSOrECtrKK1uaPna P2DekKW2MJLkk7f8Gv54 F56mX4FzoRN+PGNvbCB3 uSF3rS1yTzTwNnC2 PGdoO104MxYheXUoFvyv b4spg8fkbGj5KrKsBGDw roRzrYoaFTZ3x2ZyJt04 D45oBCdgVNQdALWb GVZtBAGbcMmhcj3dtY3g Ii8+MFUihIB1aSN2gW2c IpXfMtV5YIvcB261PbZs xKGiEpmuI46bU2Lk dXA+CZGyInp4EMLzlAyb CO0ilEBxPNikWl8cPUH9 SaLqHaOxBKxkQ3BxMVIv xjxtjkvarOR7YWAj JJOtfP74Ot7pmWvvHt1z LWRkVBA5QLYbbNMvZ3Qk gS3yKhRuMXUbSPMuS7Wq lRGrYNkiM412OXsg DsE6TJStnqMtG3JnAMLj wBglPyF7o8C4Ro6KzGaa wMWmLL7aFqYhGMl7V5Ld Uwu3KQDpsMjkVU7k oAZwONreTu2grLljrDzg UC7lBMSimexof690DrZd k2thZQCywGEoGNfdOIO5 F21dr8W3DUGtVGIz ANZ1cGC0oN0ioUmktadg bGVmdDsgdmVydGljYWwt MHxcP107PRKxjZgbYrMP Dzy5K2LoCwp1SGEl yOvgLL4ygGCfOHgmVo5d tMtldPwoAN9gFPPceugr l644GiQnw4uyTKNfnCIf IZdiFBR0V31jv2K9 AJFfXHIuVGA7lYW0iV4b bGlnbjogbGVmdDsgdmVy mFhaHIwxTJshZ122CYDq rIhfDh3AWru2A6Ma Pbr1ICUmlOroZZ5mcCDa IDvwHm4ttIzncNabVK0s WKSsujlct314LvZby1xi IDEwcHQgVGltZXM7 Y07qh1U3EQGbLDYlYLX9 nNH5gX4ynWynwdhhrGVf dDsgdmVydGljYWwtYWxp A534BGSksGewBkMq eWVyOjwvdGQ+GG71sa55 M4PdUhnzFrd8EXYrEBP8 sHE0hI0eHSXcMVver2G8 oIV0R4NhipEyql9v b2xs (more content not included)... [facility] XR Ankle 3+ Views Lefton XR [...] Howell M.D. Transcribed by: JENN Technologist: STEVEN [facility] Consent for Treatmenton Consent for Treatment [id number] 20 [id number] #1.00CD:127 Normal [facility] Physician Orderon 04-03-2022 Physician Order [id number] 2#1.00CD:127 Normal [facility] XR ANKLE LT MIN [...] by: MARQUIS HENSON Date: 2022-03-11 16:04 Normal [facility] PAP ACOG PANEL 2: 21 to 29on 10-24-2021 . . Normal [facility] Comment on above: Performed By: #### [id number] #### [facility] [address] [address] [address] Aura Griffiths Age Gdln ACOG Testing - [facility] Comment on above: Performed By: #### [id number] #### [facility] [address] [address] [address] Aura Griffiths DIAGNOSIS: Comment Normal [facility] Comment on above: Result Comment: NEGA TIVE FOR INTRAEPITHELIAL LESION OR MALIGNANCY. Performed By: #### [id number] #### [facility] [address] [address] [address] Aura Griffiths Methodology: Comment [facility] Comment on above: Result Comment: This liquid based ThinPrep(R) pap test was screened with the use of an image guided system. Performed By: #### [id number] #### [facility] [address] [address] [address] Aura Griffiths Note: Comment [facility] Comment on above: Result Comment: The Pap smear is a screening test designed to aid in the detection of premalignant and malignant conditions of the uterine cervix. It is not a diagnostic procedure and should not be used as the sole means of detecting cervical cancer. Both false-positive and false-negative reports do occur. . Performed By: #### [id number] #### [facility] [address] [place] [address] Dr. Aura Griffiths Performed by: Comment Normal [facility] Comment on above: Result Comment: Radha Trevino, [employer] (ASCP) Performed By: #### [id number] #### [facility] [address] [address] [address] Aura Griffiths Reflex Criteria: Comment Normal [facility] Comment on above: Result Comment: The HPV DNA reflex criteria were not met with this specimen result therefore, no HPV testing was performed. . Performed By: #### [id number] #### [facility] [address] [place] [address] Dr. Aura Griffiths Specimen adequacy: Comment Normal [facility] Comment on above: Result Comment: Sati sfactory for evaluation. Endocervical and/or squamous metaplastic cells (endocervical component) are present. Performed By: #### [id number] #### [facility] [address] [place] [address] Dr. Aura Griffiths Vital Signs Date Time Vital Sign Value Performing Clinician Lolyi lity 11-26-2024 15:16-0400 Body mass index (BMI) [Ratio] 45.68 kg/m2 [employer] Work Phone: [facility] 11-26-2024 15:16-0400 Body weight 120.71 kg [employer] Work Phone: [facility] 11-26-2024 15:16-0400 Diastolic blood pressure 78 mm[Hg] [employer] Work Phone: [facility] 11-26-2024 15:16-0400 Systolic blood pressure 124 mm[Hg] CarrieVerbling Work Phone: [facility] 11-13-2024 10:40-0400 Body mass index (BMI) [Ratio] 46.17 kg/m2 Karla Nebo PA Work Phone: [facility] 11-13-2024 10:40-0400 Body weight 122.02 kg Karla Nebo PA Work Phone: [facility] 11-13-2024 10:40-0400 Diastolic blood pressure 80 mm[Hg] Karla Grant PA Work Phone: [facility] 11-13-2024 10:40-0400 Systolic blood pressure 130 mm[Hg] Karla Nebo PA Work Phone: [facility] 11-06-2024 14:02-0500 Body mass index (BMI) [Ratio] 45.68 kg/m2 Karla Nebo PA Work Phone: [facility] 11-06-2024 14:02-0500 Body weight 120.71 kg Karla Grant PA Work Phone: [facility] 11-06-2024 14:02-0500 Diastolic blood pressure 80 mm[Hg] Karla Grant PA Work Phone: [facility] 11-06-2024 14:02-0500 Systolic blood pressure 126 mm[Hg] Karla Nebo PA Work Phone: [facility] 10-23-2024 11:16-0500 Body mass index (BMI) [Ratio] 45.66 kg/m2 Karla Nebo PA Work Phone: [facility] 10-23-2024 11:16-0500 Body weight 120.66 kg Karla Nebo PA Work Phone: [facility] 10-23-2024 11:16-0500 Diastolic blood pressure 80 mm[Hg] Karla Gratn PA Work Phone: [facility] 10-23-2024 11:16-0500 Systolic blood pressure 124 mm[Hg] Karla Nebo PA Work Phone: [facility] 10-09-2024 10:43-0500 Body mass index (BMI) [Ratio] 46.17 kg/m2 Carrie Payan DO Work Phone: [facility] 10-09-2024 10:43-0500 Body weight 122.02 kg Carrie Ora DO Work Phone: [facility] 10-09-2024 10:43-0500 Diastolic blood pressure 70 mm[Hg] Carrie Ora DO Work Phone: [facility] 10-09-2024 10:43-0500 Systolic blood pressure 120 mm[Hg] Carrie Ora DO Work Phone: [facility] 09-25-2024 08:58-0500 Body mass index (BMI) [Ratio] 45.49 kg/m2 Carrie Ora DO Work Phone: [facility] 09-25-2024 08:58-0500 Body weight 120.2 kg Carrie Ora DO Work Phone: [facility] 09-25-2024 08:58-0500 Diastolic blood pressure 72 mm[Hg] Carrie Ora DO Work Phone: [facility] 09-25-2024 08:58-0500 Systolic blood pressure 122 mm[Hg] Carrie Ora DO Work Phone: [facility] 2024 09:48-0500 Body mass index (BMI) [Ratio] 44.97 kg/m2 Karla OSPINA Work Phone: [facility] 2024 09:48-0500 Body weight 118.84 kg Karla OSPINA Work Phone: [facility] 2024 09:48-0500 Diastolic blood pressure 70 mm[Hg] Karla OSPINA Work Phone: [facility] 2024 09:48-0500 Systolic blood pressure 120 mm[Hg] Karla OSPINA Work Phone: [facility] 08-14-2024 11:20-0500 Body mass index (BMI) [Ratio] 44.53 kg/m2 Carrie Ora DO Work Phone: [facility] 08-14-2024 11:20-0500 Body weight 117.66 kg Carrie Ora DO Work Phone: [facility] 08-14-2024 11:20-0500 Diastolic blood pressure 82 mm[Hg] Carrie Ora DO Work Phone: [facility] 08-14-2024 11:20-0500 Systolic blood pressure 124 mm[Hg] Carrie Ora DO Work Phone: [facility] 07-17-2024 10:48-0500 Body mass index (BMI) [Ratio] 45.28 kg/m2 Carrie Ora DO Work Phone: [facility] 07-17-2024 10:48-0500 Body weight 119.66 kg Carrie Ora DO Work Phone: [facility] 07-17-2024 10:48-0500 Diastolic blood pressure 70 mm[Hg] Carrie Ora DO Work Phone: [facility] 07-17-2024 10:48-0500 Systolic blood pressure 120 mm[Hg] Carrie Ora DO Work Phone: [facility] 06-17-2024 10:48-0400 Body mass index (BMI) [Ratio] 44.99 kg/m2 Carrie Ora DO Work Phone: [facility] 06-17-2024 10:48-0400 Body weight 118.9 kg Carrie Ora DO Work Phone: [facility] 06-17-2024 10:48-0400 Diastolic blood pressure 70 mm[Hg] Carrie Ora DO Work Phone: [facility] 06-17-2024 10:48-0400 Systolic blood pressure 120 mm[Hg] Carrie Ora DO Work Phone: [facility] 05-16-2024 09:16-0400 Body mass index (BMI) [Ratio] 46 kg/m2 [facility] 05-16-2024 09:16-0400 Body weight 121.56 kg [facility] 05-16-2024 09:16-0400 Diastolic blood pressure 70 mm[Hg] [facility] 05-16-2024 09:16-0400 Systolic blood pressure 120 mm[Hg] [facility] Encounters Encounter Date Encounter Type Care Provider Facility Start: 12-04-2024 End: 12-04-2024 Clinisync Result Encounter Carrie Ora DO Work Phone: [facility] Unsolicited Start: 12-04-2024 End: 12-04-2024 Clinisync Result Encounter Carrie Ora DO Work Phone: [facility] Unsolic[facility] Start: 12-03-2024 End: 12-03-2024 ambulatory CARRIE ORA Not Available Start: 12-03-2024 End: 12-03-2024 Bamboo flowsheet Carrie Ora DO Work Phone: [facility] Start: 12-03-2024 End: 12-03-2024 Bamboo flowsheet Carrie Ora DO Work Phone: [facility] Start: 11-27-2024 End: 11-27-2024 Clinisync Result Encounter Carrie Ora DO Work Phone: [facility] Unsolicited Start: 11-27-2024 End: 11-27-2024 Clinisync Result Encounter Carrie Ora DO Work Phone: [facility] Unsolicited Start: 11-26-2024 End: 11-26-2024 flow sheet Carrie Ora DO Work Phone: [facility] Comment on above: Third trimester preg charley; 36 weeks gestation of Start: 11-26-2024 End: 11-26-2024 ambulatory CARRIE ORA Not Available Start: 11-26-2024 End: 11-26-2024 Bamboo flowsheet Carrie Ora DO Work Phone: [facility] Start: 11-26-2024 End: 12-01-2024 Bamboo flowsheet Carrie Ora DO Work Phone: [...] Bamboo flowsheet Carrie Ora DO Work Phone: [facility] Start: 09-25-2024 End: 09-25-2024 Bamboo flowsheet Carrie Ora DO Work Phone: [facility] Start: 09-25-2024 End: 09-25-2024 flow sheet Carrie Ora DO Work Phone: [facility] Comment on above: Second trimester pre gnancy; 27 weeks gestation of ; Elevated glucose tolerance test Start: 09-25-2024 End: 09-25-2024 ambulatory CARRIE ORA Not Available Start: 2024 End: 2024 Bamboo flowsheet Karla OSPINA Work Phone: [facility] Start: 2024 End: 2024 Bamboo flowsheet Karla OSPINA Work Phone: [facility] Start: 2024 End: 2024 flow sheet Karla OSPINA Work Phone: [facility] Comment on above: 25 weeks gestation o f ; Second trimester ; UTI symptoms Start: 2024 End: 2024 ambulatory KARLA BURNS Not Available Start: 08-14-2024 End: 08-14-2024 Bamboo flowsheet Carrie Ora DO Work Phone: [facility] Start: 08-14-2024 End: 08-14-2024 Bamboo flowsheet Carrie Ora DO Work Phone: [facility] Start: 08-14-2024 End: 08-14-2024 flow [...] 04-07-2024 ambulatory KARLA GRANT Not Available Start: 03-11-2022 End: 03-11-[address] CARRIE PAYAN Facility:[facility] Start: 10-18-2021 End: 10-18-[address] CARRIE PAYAN Facility:[facility] Procedures Date Procedure Procedure Detail Performing Clinician Start: 12-04-2024 US OB BPP W NON-STRESS Carrie Ora DO Work Phone: Start: 12-04-2024 US OB GROWTH Carrie Fazi o DO Work Phone: Start: 11-27-2024 US OB BPP W NON-STRESS Carrie Ora [...] stick/tabl et rgnt non-auto w/o micrscp Karla Nebo PA Work Phone: Start: 08-14-2024 Urnls dip stick/tabl et rgnt non-auto w/o micrscp Carrie Ora DO Work Phone: Start: 08-12-2024 ALL CBC WITH AUTO DIFF Carrie Roa DO Work Phone: Start: 07-30-2024 GLUCOSE 1 [...] Treatment Date Care Activity Detail Author Start: 12-09-2024 End: 12-09-2024 Patient encounter procedure 12/09/2024 1:00 PM EDT Routine [facility] [address] [place] [address] Carrie Payan, DO [address] [place] [address] [facility] Start: 12-03-2024 End: 12-03-2024 Patient encounter procedure [facility] Comment on above: Arrived Start: 11-26-2024 End: 11-26-2024 Patient encounter procedure [...] AM EDT Routine [facility] [address] [place] [phone] Carrie Payan DO [address] [place], [place] [id number] [facility] Start: 11-13-2024 End: 11-13-2024 Patient encounter procedure 11/13/2024 10:10 AM EDT Office Visit [facility] [address] [place] [phone] Karla Burns PA [address] [place], [place] [id number] Arrived [facility] Comment on above: [...] or unspecified fetus Expected: 10/09/2024, Expires: 10/09/2025 [facility] Comment on above: Expected: 10/09/2024 , Expires: 10/09/2025 Start: 10-09-2024 End: 10-09-2024 Patient encounter procedure 10/09/2024 10:40 AM EST Routine [facility] [address] [place] [phone] Carrie Payan, DO [address] [place] [address] [facility] Start: 10-09-2024 End: 10-09-2024 Professional / ancillary services management 10/09/2024 10:00 AM EST Ancillary Procedure [facility] [address] [facility] [phone] [facility] Start: 09-25-2024 End: 09-25-2025 Measurement of glucose 3 hours after glucose challenge for glucose tolerance test Glucose tolerance, 3 hours Lab Routine Elevated glucose tolerance test Expected: 09/25/2024 (Approximate), Expires: 09/25/2025 [facility] Comment on above: Expected: 09/25/2024 (Approximate), Expires: 09/25/2025 Start: 09-25-2024 End: 09-25-2025 US for US OB follow up transabdominal approach Imaging Routine Second trimester 27 weeks gestation of Elevated glucose tolerance test Expected: 09/25/2024, Expires: 09/25/2025 [facility] Work Phone: Comment on above: Expected: [...] Procedure [facility] [address] [place] [phone] [facility] Start: 07-17-2024 End: 09-16-2024 [...] anatomic survey Expected: 07/17/2024 (Approximate), Expires: 07/17/2025 [facility] Comment on above: Expected: 07/17/2024 (Approximate), Expires: 07/17/2025 Start: 07-15-2024 End: 07-15-2024 Patient encounter procedure 07/15/2024 10:50 AM EST Routine [facility] [address] [place] [address] Carrie Payan, DO [address] [place] [address] [facility] Start: 06-17-2024 End: 06-17-2024 Patient encounter procedure [facility] Comment on above: Arrived Start: 05-16-2024 End: 05-16-2025 ABO/Rh ABO/Rh Lab Routine Missed menses Expected: 05/16/2024 (Approximate), Expires: 05/16/2025 [facility] Comment on above: Expected: [...] gestational age Expected: 05/16/2024 (Approximate), Expires: 05/16/2025 [facility] Comment on above: Expected: 05/16/2024 (Approximate), Expires: 05/16/2025 Start: 05-16-2024 End: 05-16-2025 US Pelvis transvaginal US OB transvaginal Imaging Routine Missed menses Expected: 05/16/2024 (Approximate), Expires: 05/16/2025 [facility] Comment on above: Expected: 05/16/2024 (Approximate), Expires: 05/16/2025 Bacteria identified in Urine by Culture Urine culture Microbiology Routine Missed menses Ordered: 05/16/2024 [facility] Comment on above: Ordered: 05/16/2024 Bacteria identified in Urine by Culture Urine culture Microbiology Routine UTI symptoms Ordered: 2024 [facility] Work Phone: Comment on above: Ordered: 2024 CBC W Auto Different ial panel - Blood CBC and differential Lab Routine Missed menses Ordered: 05/16/2024 [facility] Comment on above: Ordered: 05/16/2024 CHLAMYDIA TRACHOMATI S (GENITO/STI) CHLAMYDIA TRACHOMATIS (GENITO/STI) Lab Routine Exposure to STD Ordered: 07/17/2024 [facility] Comment on above: Ordered: 07/17/2024 Hemoglobin A1c/Hemoglobin.total in Blood Hemoglobin A1c Lab Routine Missed menses Ordered: 05/16/2024 [facility] Comment on above: Ordered: 05/16/2024 Hepatitis B virus surface Ag [Presence] in Serum or Plasma by Immunoassay Hepatitis B surface antigen Lab Routine Missed menses Ordered: 05/16/2024 [facility] Comment on above: Ordered: 05/16/2024 Hepatitis C virus Ab [Presence] in Serum or Plasma by Immunoassay Hepatitis C antibody Lab Routine Missed menses Ordered: 05/16/2024 [facility] Comment on above: Ordered: 05/16/2024 HIV-1/HIV-2 antigen/antibody combination immunoassay HIV-1 and HIV-2 antibodies Lab Routine Missed menses Ordered: 05/16/2024 [facility] Comment on above: Ordered: 05/16/2024 Neisseria gonorrhoea e DNA [Presence] in Unspecified specimen by XIOMARA with probe detection Neisseria gonorrhea DNA probe, direct Lab Routine Exposure to STD Ordered: 07/17/2024 [facility] Comment on above: Ordered: 07/17/2024 Reagin Ab [Presence] in Serum by RPR RPR Lab Routine Missed menses Ordered: 05/16/2024 [facility] Comment on above: Ordered: 05/16/2024 Rubella antibody, IgG Rubella an tibody, IgG Lab Routine Missed menses Ordered: 05/16/2024 [facility] Comment on above: Ordered: 05/16/2024 SURESWAB(R) ADVANCED VAGINITIS PLUS, TMA SURESWAB(R) ADVANCED VAGINITIS PLUS, TMA Pathology and Cytology Routine Vaginal discharge Ordered: 07/17/2024 [facility] Work Phone: Comment on above: Ordered: 07/17/2024 Payers Date Payer Category Payer Unknown [id number] 2023 [facility] [id number] 2023 Unknown BCBS BCBS [id number] 2023-Present [phone] [address] [place] [address] [id number] 2023 Unknown [id number] 1997 Unknown [id number] [id number] 93 1997 Unknown [id number] 2.16.840.1.014625.3.579.2.5 93 1997 Unknown [id number] 2.16.840.1.000101.3.579.2.1 259 1997 Unknown [id number] 2.16.840.1.825856.3.579.2.1 259 1997 Unknown [id number] 2.16.840.1.985160.3.579.2.1 259 1997 Unknown [id number] 2.16.840.1.806716.3.579.2.1 259 1997 Unknown [id number] 2.16.840.1.007397.3.579.2.1 259 1997 Unknown [id number] 2.16.840.1.863118.3.579.2.1 259 1997 Unknown [id number] 2.16.840.1.319581.3.579.2.1 259 1997 Unknown [id number] 2.16.840.1.426575.3.579.2.1 259 1997 Unknown [id number] 2.16.840.1.980766.3.579.2.1 259 1997 Unknown [id number] 2.16.840.1.054327.3.579.2.1 259 1997 Unknown [id number] 2.16.840.1.176983.3.579.2.1 259 1997 Unknown [id number] 2.16.840.1.721363.3.579.2.1 259 1997 Unknown [id number] 2.16.840.1.278975.3.579.2.1 259 1997 Unknown [id number] 2.16.840.1.118806.3.579.2.1 259 1959 Private Health Insurance [id number] 1959 Unknown [id number] Social History Date Type Detail Facility Start: 07-31-2023 Tobacco smoking stat [facility] Never smoked tobacco [facility] Start: 07-31-2023 Tobacco use and exposure Smokeless t obacco non-user [facility] Start: 05-16-2024 End: 12-03-2024 Alcoholic beverage intake Lifetime non-drinker (finding) [facility] Start: 07-31-2023 End: 04-07-2024 History of Social function [facility] Start: 07-31-2023 End: 04-07-2024 Tobacco use panel [facility] Start: 03-28-2024 [facility] Start: 1995 Sex assigned at Female N [facility] Start: 01-23-2023 Gender identity Identifies as female gender (finding) [facility] Clinical Notes 05-16-2024 to 11-26-2024 Keisha Segundo [...] Morbid obesity with BMI of 40.0-44.9, adult ([facility]) Negative test On Depo-Provera for contraception HISTORY PAST MEDICAL HISTORY SOCIAL HISTORY Past Medical History: Diagnosis Date Depression screening Encounter for gynecological examination (general) (routine) without abnormal findings Family planning Insulin resistance Morbid obesity with BMI of 40.0-44.9, adult ([facility]) Negative test On Depo-Provera for contraception [...] nursing note reviewed. Exam conducted with a manager program management present. Vitals: Estimated body mass index is [...] Carrie Payan DO documented in this encounter [facility] 11-13-2024 History of Presen [...] Morbid obesity with BMI of 40.0-44.9, adult ([facility]) Negative test On Depo-Provera for contraception HISTORY PAST MEDICAL HISTORY SOCIAL HISTORY Past Medical History: Diagnosis Date Depression screening Encounter for gynecological examination (general) (routine) without abnormal findings Family planning Insulin resistance Morbid obesity with BMI of 40.0-44.9, adult ([facility]) Negative test On Depo-Provera for contraception [...] nursing note reviewed. Exam conducted with a manager program management present. Vitals: Estimated body mass index is [...] of: BHAVESH Javier documented in this encounter [facility] 11-06-2024 History of Presen [...] Morbid obesity with BMI of 40.0-44.9, adult ([facility]) Negative test On Depo-Provera for contraception HISTORY PAST MEDICAL HISTORY SOCIAL HISTORY Past Medical History: Diagnosis Date Depression screening Encounter for gynecological examination (general) (routine) without abnormal findings Family planning Insulin resistance Morbid obesity with BMI of 40.0-44.9, adult ([facility]) Negative test On Depo-Provera for contraception [...] nursing note reviewed. Exam conducted with a manager program management present. Vitals: Estimated body mass index is [...] of: BHAVESH Javier documented in this encounter [facility] 10-23-2024 History of Presen [...] Morbid obesity with BMI of 40.0-44.9, adult ([facility]) Negative test On Depo-Provera for contraception HISTORY PAST MEDICAL HISTORY SOCIAL HISTORY Past Medical History: Diagnosis Date Depression screening Encounter for gynecological examination (general) (routine) without abnormal findings Family planning Insulin resistance Morbid obesity with BMI of 40.0-44.9, adult ([facility]) Negative test On Depo-Provera for contraception [...] of: BHAVESH Javier documented in this encounter [facility] 10-09-2024 History of Presen [...] Morbid obesity with BMI of 40.0-44.9, adult ([facility]) Negative test On Depo-Provera for contraception HISTORY PAST MEDICAL HISTORY SOCIAL HISTORY Past Medical History: Diagnosis Date Depression screening Encounter for gynecological examination (general) (routine) without abnormal findings Family planning Insulin resistance Morbid obesity with BMI of 40.0-44.9, adult ([facility]) Negative test On Depo-Provera for contraception [...] nursing note reviewed. Exam conducted with a manager program management present. Vitals: Estimated body mass index is [...] Carrie Payan DO documented in this encounter [facility] 09-25-2024 History of Presen [...] Morbid obesity with BMI of 40.0-44.9, adult ([facility]) Negative test On Depo-Provera for contraception HISTORY PAST MEDICAL HISTORY SOCIAL HISTORY Past Medical History: Diagnosis Date Depression screening Encounter for gynecological examination (general) (routine) without abnormal findings Family planning Insulin resistance Morbid obesity with BMI of 40.0-44.9, adult ([facility]) Negative test On Depo-Provera for contraception [...] nursing note reviewed. Exam conducted with a manager program management present. Vitals: Estimated body mass index is [...] Carrie Payan DO documented in this encounter [facility] 2024 History of Presen [...] Morbid obesity with BMI of 40.0-44.9, adult ([facility]) Negative test On Depo-Provera for contraception HISTORY PAST MEDICAL HISTORY SOCIAL HISTORY Past Medical History: Diagnosis Date Depression screening Encounter for gynecological examination (general) (routine) without abnormal findings Family planning Insulin resistance Morbid obesity with BMI of 40.0-44.9, adult ([facility]) Negative test On Depo-Provera for contraception [...] nursing note reviewed. Exam conducted with a manager program management present. Vitals: Estimated body mass index is [...] of: BHAVESH Javier documented in this encounter [facility] 08-14-2024 History of Presen [...] Morbid obesity with BMI of 40.0-44.9, adult ([facility]) Negative test On Depo-Provera for contraception HISTORY PAST MEDICAL HISTORY SOCIAL HISTORY Past Medical History: Diagnosis Date Depression screening Encounter for gynecological examination (general) (routine) without abnormal findings Family planning Insulin resistance Morbid obesity with BMI of 40.0-44.9, adult ([facility]) Negative test On Depo-Provera for contraception [...] nursing note reviewed. Exam conducted with a manager program management present. Vitals: Estimated body mass index is [...] Carrie Payan DO documented in this encounter [facility] 07-17-2024 History of Presen [...] Morbid obesity with BMI of 40.0-44.9, adult ([facility]) Negative test On Depo-Provera for contraception HISTORY PAST MEDICAL HISTORY SOCIAL HISTORY Past Medical History: Diagnosis Date Depression screening Encounter for gynecological examination (general) (routine) without abnormal findings Family planning Insulin resistance Morbid obesity with BMI of 40.0-44.9, adult ([facility]) Negative test On Depo-Provera for contraception [...] nursing note reviewed. Exam conducted with a manager program management present. Vitals: Estimated body mass index is [...] Carrie Payan DO documented in this encounter [facility] 06-17-2024 History of Presen [...] Morbid obesity with BMI of 40.0-44.9, adult ([facility]) Negative test On Depo-Provera for contraception HISTORY PAST MEDICAL HISTORY SOCIAL HISTORY Past Medical History: Diagnosis Date Depression screening Encounter for gynecological examination (general) (routine) without abnormal findings Family planning Insulin resistance Morbid obesity with BMI of 40.0-44.9, adult ([facility]) Negative test On Depo-Provera for contraception [...] nursing note reviewed. Exam conducted with a manager program management present. Vitals: Estimated body mass index is [...] or undercooked meat, and stay away from [facility]. Patient has been consulted regarding any [...] Karla Burns PA-C documented in this encounter [facility] 05-16-2024 History of Presen [...] Morbid obesity with BMI of 40.0-44.9, adult ([facility]) Negative test On Depo-Provera for contraception [...] or undercooked meat, and stay away from [facility]. Patient has also been advised to [...] content) DATE CREATED AUTHOR 04/05/2022 [facility] DATE CREATED AUTHOR AUTHOR'S ORGANIZ ATION 04/08/2022 [facility] DATE CREATED AUTHOR AUTHOR'S ORGANIZ ATION 12/06/2024 [facility] d[facility] Special[facility] EPIC Care Teams (unrecognized sec tion and content) Colon Therapist Relationship Specialty Start Date End Date Karla Ortega MD [address] [place] [address] PCP - General Family Medicine 01/24/23 Colon Therapist Relationship Specialty Start Date End Date Karla Ortega MD [address] [place] [address] PCP - General Family Medicine 01/24/23 Colon Therapist Relationship Specialty Start Date End Date Karla Ortega MD [address] [place] [phone] PCP - General Family Medicine 01/24/23 Colon Therapist Relationship Specialty Start Date End Date Karla Ortega MD [address] [place] [address] PCP - General Family Medicine 01/24/23 Colon Therapist Relationship Specialty Start Date End Date Karla Ortega MD [address] [place] [address] PCP - General Family Medicine 01/24/23 Colon Therapist Relationship Specialty Start Date End Date Karla Ortega MD [address] [place] [address] PCP - General Family Medicine 01/24/23 Colon Therapist Relationship Specialty Start Date End Date Karla Ortega MD [address] [place] [address] PCP - General Family Medicine 01/24/23 Colon Therapist Relationship Specialty Start Date End Date Karla Ortega MD [address] [place] [phone] PCP - General Family Medicine 01/24/23 Colon Therapist Relationship Specialty Start Date End Date Karla Ortega MD [address] [place] [address] PCP - General Family Medicine 01/24/23 Colon Therapist Relationship Specialty Start Date End Date Karla Ortega MD [address] [place] [address] PCP - General Family Medicine 01/24/23 Colon Therapist Relationship Specialty Start Date End Date Karla Ortega MD [address] [place] [address] PCP - General Family Medicine [...] BE BASED ON THE PRIMARY CLINICAL RECORDS. [facility] [employer] provides no warranty or guarantee of the accuracy or completeness of information in this document.
[2024-12-07] MEDS: DINOPROSTONE 10 MG VAG INSERT.ER VAGINAL (17:10)
[2024-12-07 17:30] LABS: Hematocrit 30.8 % (36.0-48.0); Hemoglobin 9.5 g/dL (12.0-16.0); Mean Corpuscular HGB Conc 30.8 g/dL (29.9-35.2); Mean Corpuscular Hemoglobin 23.4 pg (26.7-34.0); Mean Corpuscular Volume 75.9 fL (81.0-99.0); Mean Platelet Volume 8.8 fL (9.5-13.5); Platelet Count 350 10^3/uL (150-450); Red Blood Count 4.06 10^6/uL (4.20-5.40); White Blood Count 7.5 10^3/uL (4.0-11.0)
[2024-12-07 17:48] LABS: Amphetamine Screen Urine NEGATIVE (NEGATIVE); Barbiturates Screen Urine NEGATIVE (NEGATIVE); Benzodiazepines Screen Urine NEGATIVE (NEGATIVE); Buprenorphine Screen Urine NEGATIVE (NEGATIVE); Cannabinoid Screen Urine NEGATIVE (NEGATIVE); Cocaine Screen Urine NEGATIVE (NEGATIVE); Methadone Screen Urine NEGATIVE (NEGATIVE); Methamphetamines Screen Urine NEGATIVE (NEGATIVE); Opiate Screen Urine NEGATIVE (NEGATIVE); Oxycodone Screen Urine NEGATIVE (NEGATIVE); Phencyclidine Screen Urine NEGATIVE (NEGATIVE); Tricyclic Antidepressant Urine NEGATIVE (NEGATIVE)
[2024-12-08] VITALS (57 sets, daily range): BP systolic 96–154; BP diastolic 51–88; PULSE 62–114; TEMP 36.3–37
[2024-12-08] MEDS: 0.9 % SODIUM CHLORIDE 1,000 ML 125 ML IV ×3 (02:05→14:33)
[2024-12-08] MEDS: ROPIVACAINE HCL/PF 400 MG/200 ML PREMIX 6 MG EPIDURAL (03:01)
[2024-12-08] MEDS: 0.9 % SODIUM CHLORIDE 1,000 ML 1000 ML IV (03:01)
[2024-12-08] MEDS: OXYTOCIN/0.9 % SODIUM CHLORIDE 10 UNITS/500 ML PLAST..BAG 6 UNIT IV (07:13)
[2024-12-08] MEDS: ONDANSETRON PF 4 MG/2 ML VIAL IV (08:14)
[2024-12-08] MEDS: OXYTOCIN/0.9 % SODIUM CHLORIDE 20 UNITS/1,000 ML PLAST..BAG 125 UNIT IV (16:25)
--- NOTE | 2024-12-08 16:35 | PM.OBPRCVD ---
Procedure Intrapartal events: None Induction method: per pitocin protocol Delivery augmentation: rupture of membranes and pitocin Delivery monitor: external FHT and external uterine Route of delivery: Episiotomy Description: none L&D Laceration Description: none Estimated blood loss (mL): 350 Anesthesia type: Epidural Disposition: floor Delivery date: 12/08/24 Gender: male presentation: vertex Placental delivery description: Spontaneous cord description: 3 Vessels and Nuchal Cord
[2024-12-08] MEDS: IBUPROFEN 600 MG TABLET PO ×2 (17:36→23:47)
[2024-12-08] MEDS: ACETAMINOPHEN 325 MG TABLET 650 MG PO ×2 (17:37→23:46)
--- NOTE | 2024-12-08 20:34 | W.PC.ACHO ---
Registration Status: ADM IN Primary Language: [place] Preferred Language: [place] 1909-Report given to Shorty at this time. Care relinquished. Active Medications Generic Name Dose Route Start Last Admin Trade Name Srinivasan PRN Reason Stop Dose Admin Acetaminophen 650 mg 12/08/24 16:36 12/08/24 17:37 Acetaminophen 325 Mg Tablet PO 650 mg Q6H PRN Administration Mild Pain Al Hydroxide/Mg Hydroxide 2,400 mg 12/08/24 16:36 Magnesium Hydroxide 2,400 Mg/10 Ml Oral.Susp PO Q6H PRN Dyspepsia Benzocaine/Menthol 1 applic 12/08/24 16:36 Benzocaine/Menthol 85 Gram Canal [place] Bottle TOPICAL Q2H PRN Pain Carboprost Tromethamine 250 mcg 12/07/24 17:22 Carboprost Tromethamine 250 Mcg/Ml 1 Ml Vial IM 12/09/24 17:22 Q15M PRN Bleeding Diphenhydramine HCl 25 mg 12/08/24 02:09 Diphenhydramine Hcl 50 Mg/Ml Vial IV 12/09/24 02:10 Q6H PRN Itching Diphtheria/Pertussis/Tetanus Vacc 0.5 ml 12/10/24 09:00 Adacel Diph,Pertuss(Acell),Tet Vac/Pf 0.5 Ml Adult Syringe IM 12/10/24 09:01 .ONCE ONE Docusate Sodium 100 mg 12/09/24 09:00 Docusate Sodium 100 Mg Capsule PO BID RUTH Ephedrine Sulfate 5 mg 12/08/24 02:09 Ephedrine Sulfate 50 Mg/Ml Vial IV 12/09/24 02:10 Q5M PRN Blood Pressure - Low Fentanyl Citrate 100 mcg 12/08/24 02:09 Fentanyl Citrate/Pf 100 Mcg/2 Ml Vial EPIDURAL ONCE PRN epidural Fentanyl Citrate 100 mcg 12/08/24 02:36 Fentanyl Citrate/Pf 100 Mcg/2 Ml Vial EPIDURAL ONCE PRN epidural Tranexamic Acid 1,000 mg/ 110 mls @ 440 mls/hr 12/07/24 17:22 Sodium Chloride IV 12/09/24 17:22 ONCE PRN Uterine Bleeding Sodium Chloride 1,000 mls @ 125 mls/hr 12/07/24 17:30 12/08/24 14:33 Sodium Chloride 0.9% 1,000 Ml IV 125 mls/hr .Q8H RUTH Administration Oxytocin/Sodium Chloride 10 units in 500 mls @ 6 mls/hr 12/08/24 06:00 12/08/24 14:30 Pitocin 10 Unit/500 Ml-Ns IV 18 milliunit/min TITR RUTH 54 mls/hr Infusion Protocol 2 MILLIUNIT/MIN Ropivacaine/Sodium Chloride 400 mg in 200 mls @ 6 mls/hr 12/08/24 02:15 12/08/24 03:01 Naropin 0.2% 400 Mg/200 Ml Bag EPIDURAL 6 mls/hr Q24H RUTH Administration Ibuprofen 600 mg 12/08/24 16:36 12/08/24 17:36 Ibuprofen 600 Mg Tablet PO 600 mg Q6H PRN Administration Moderate Pain Lidocaine 1 ml 12/07/24 17:22 Lidocaine Hcl 1% 200 Mg/20 Ml Mdv INJ 12/09/24 17:24 ONCE PRN Pain Lidocaine 5 ml 12/08/24 02:09 Lidocaine Hcl 2% Pf 100 Mg/5 Ml Vial INJ 12/09/24 02:09 Q1H PRN epidural Measles/Mumps/Rubella Vaccine Live 0.5 ml 12/10/24 09:00 Measles,Mumps,Rubella Vacc/Pf 0.5 Ml Vial SQ 12/10/24 09:01 .ONCE ONE Methylergonovine Maleate 0.2 mg 12/07/24 17:22 Methylergonovine Maleate 0.2 Mg/Ml Ampule IM 12/09/24 17:22 ONCE PRN Uterine Contractility/Contract Methylergonovine Maleate 0.2 mg 12/07/24 17:22 Methylergonovine Maleate 0.2 Mg Tablet PO 12/09/24 17:22 Q4H PRN Uterine Contractility/Contract Misoprostol 600 mcg 12/07/24 17:22 Misoprostol 100 Mcg Tablet PO 12/09/24 17:22 ONCE PRN Uterine Bleeding Misoprostol 800 mcg 12/07/24 17:22 Misoprostol 100 Mcg Tablet SL 12/09/24 17:22 ONCE PRN Uterine Bleeding Misoprostol 1,000 mcg 12/07/24 17:22 Misoprostol 100 Mcg Tablet IL 12/09/24 17:22 ONCE PRN Uterine Bleeding Nalbuphine HCl 10 mg 12/07/24 17:22 Nalbuphine Hcl 10 Mg/Ml Ampule IV Q3H PRN Pain Naloxone HCl 0.4 mg 12/08/24 02:09 Naloxone Hcl 0.4 Mg/Ml Vial IV 12/09/24 02:10 ONCE PRN respiratory depression Ondansetron HCl 4 mg 12/07/24 17:22 12/08/24 08:14 Ondansetron Pf 4 Mg/2 Ml Vial IV 4 mg Q6H PRN Administration Nausea And Vomiting Ondansetron HCl 4 mg 12/07/24 17:22 Ondansetron 4 Mg Rapdis Tablet SL Q6H PRN Nausea And Vomiting Oxytocin 10 unit 12/07/24 17:22 Oxytocin 10 Unit/Ml Vial IM 12/09/24 17:22 ONCE PRN bleeding Senna 17.2 mg 12/08/24 20:00 Sennosides 8.6 Mg Tablet PO QHS PRN Constipation Simethicone 80 mg 12/08/24 16:36 Simethicone 80 Mg Tab.Chew PO QID PRN Abdominal Distention Temazepam 15 mg 12/08/24 16:36 Temazepam 15 Mg Capsule PO QHS PRN Sleep Witch Nyasia/Glycerin 1 pad 12/08/24 16:36 Glycerin/Witch Nyasia Pads TOPICAL Q2H PRN Pain Diet Category Date Time Status Regular Consistency Diet Diet 12/08/24 16:36 Active Respiratory Oxygen Delivery Method Room Air Oxygen Delivery Method Room Air Cardiology Heart Sounds Strong,Regular Bowels Bowel Pattern No Bowel Movement Date of Last Bowel Movement 12/07/24 Renal Bladder Pattern Continent Bladder Pattern Continent Catheter Date Urinary Catheter Removed 12/08/24 [Urethral] Time Urinary Catheter 13:40 Discontinued [Urethral]
[2024-12-09] MEDS: IBUPROFEN 600 MG TABLET PO ×3 (07:00→18:51)
[2024-12-09] MEDS: ACETAMINOPHEN 325 MG TABLET 650 MG PO ×3 (07:01→18:50)
[2024-12-09 07:13] LABS: Basophils Percent Auto 0.1 % (0.2-2.0); Eosinophils Percent Auto 0.1 % (0.9-7.0); Hematocrit 27.2 % (36.0-48.0); Hemoglobin 8.5 g/dL (12.0-16.0); Immature Granulocytes Abs Auto 0.07 10^3/uL (0.00-0.03); Immature Granulocytes Pct Auto 0.5 % (0.0-0.5); Lymphocytes Absolute Auto 0.7 10^3/uL (1.2-3.8); Lymphocytes Percent Auto 5.2 % (20.5-60.0); Mean Corpuscular HGB Conc 31.3 g/dL (29.9-35.2); Mean Corpuscular Hemoglobin 23.8 pg (26.7-34.0); Mean Corpuscular Volume 76.2 fL (81.0-99.0); Mean Platelet Volume 9.1 fL (9.5-13.5); Monocytes Absolute Auto 0.5 10^3/uL (0.3-0.8); Monocytes Percent Auto 3.9 % (1.7-12.0); Neutrophils Absolute Auto 12.6 10^3/uL (1.4-6.5); Neutrophils Percent Auto 90.2 % (43.0-75.0); Platelet Count 247 10^3/uL (150-450); Red Blood Count 3.57 10^6/uL (4.20-5.40); Red Cell Distribution Width 16.2 % (11.0-15.0); White Blood Count 13.9 10^3/uL (4.0-11.0)
--- NOTE | 2024-12-09 08:30 | PM.OBPN ---
OB - PN: Subj Subjective Patient comments: no complaints and pain well controlled status: doing well Exam Constitutional Vital Signs, click to edit/add: Last Vital Signs Temp 97.6 F 12/08/24 23:40 Pulse 81 12/08/24 23:40 Resp 18 12/08/24 23:40 BP 115/58 12/08/24 23:40 O2 Del Method Room Air 12/08/24 23:40 Documenting provider has reviewed patient's vital signs: yes Common normals: no apparent distress Respiratory Common normals: normal respiratory effort and clear to auscultation bilaterally Cardio Common normals: regular rate and regular rhythm GI Common normals: Normal to inspection, nondistended, normoactive bowel sounds present Extremity Common normals: no clubbing, cyanosis or edema and no calf tenderness Results Labs Labs: Short CBC 12/09/24 Range/Units 06:43 WBC 13.9 H (4.0-11.0) 10^3/uL Hgb 8.5 L (12.0-16.0) g/dL Hct 27.2 L (36.0-48.0) % Plt Count 247 (150-450) 10^3/uL Urinary Catheter Management Urinary Catheter Management Urethral: Cath placed during this visit: yes, but has since been removed by the nurse Removal date: 12/08/24 Removal time: 13:40 OB - PN: A/P Plan - Vaginal Delivery day: 1 Plan: routine care Time Spent with Patient Time: Total time spent is greater than 50% in coordination of care (as documented) at patient's floor/unit and/or counseling patient: Total time spent with greater than 50% in coordination of care (as documented) at patient's floor/unit and/or counseling patient: less than 15 minutes
[2024-12-09 09:04] VITALS: BP 109/55; PULSE 102
[2024-12-09] MEDS: DOCUSATE SODIUM 100 MG CAPSULE PO ×2 (09:11→21:38)
[2024-12-09 09:15] VITALS: TEMP 36.3
[2024-12-09 17:11] VITALS: BP 121/58; PULSE 98
[2024-12-10 01:15] VITALS: TEMP 36.6
[2024-12-10 01:16] VITALS: BP 132/65; PULSE 95
[2024-12-10] MEDS: IBUPROFEN 600 MG TABLET PO ×2 (01:18→07:58)
--- NOTE | 2024-12-10 07:55 | PM.OBPN ---
OB - PN: Subj Subjective Patient comments: no complaints and pain well controlled [place] status: doing well Exam Constitutional Vital Signs, click to edit/add: Last Vital Signs Temp 98 F 12/10/24 01:15 Pulse 95 H 12/10/24 01:16 Resp 16 12/10/24 01:15 BP 132/65 12/10/24 01:16 O2 Del Method Room Air 12/10/24 01:15 Documenting provider has reviewed patient's vital signs: yes Common normals: no apparent distress Respiratory Common normals: normal respiratory effort and clear to auscultation bilaterally Cardio Common normals: regular rate and regular rhythm GI Common normals: Normal to inspection, nondistended, normoactive bowel sounds present Extremity Common normals: no clubbing, cyanosis or edema and no calf tenderness Urinary Catheter Management Urinary Catheter Management Urethral: Cath placed during this visit: yes, but has since been removed by the nurse Removal date: 12/08/24 Removal time: 13:40 OB - PN: A/P Plan - Vaginal Delivery day: 2 Plan: routine care, discharge home and follow up 6 weeks Time Spent with Patient Time: Total time spent is greater than 50% in coordination of care (as documented) at patient's floor/unit and/or counseling patient: Total time spent with greater than 50% in coordination of care (as documented) at patient's floor/unit and/or counseling patient: less than 15 minutes
[2024-12-10 07:58] VITALS: BP 127/69; PULSE 100
[2024-12-10] MEDS: DOCUSATE SODIUM 100 MG CAPSULE PO (09:26)
== END 2024-12-10 14:15 | disposition home or self-care (01) | DRG 807 ==
PROVIDERS: Admitting Provider Obstetrics & Gynecology; Visit Provider Obstetrics & Gynecology
DX: O24.420 Gestational diabetes mellitus in childbirth, diet controlled (principal); O99.214 Obesity complicating childbirth; O14.04 Mild to moderate pre-eclampsia, complicating childbirth; E66.01 Morbid (severe) obesity due to excess calories; O69.81X0 Labor and delivery complicated by cord around neck, without compression, not applicable or unspecified; Z37.0 Single live birth; Z3A.38 38 weeks gestation of pregnancy; Z79.82 Long term (current) use of aspirin; Z23 Encounter for immunization
CPT/HCPCS: 36415; 51702; 59050; 59410; 80307; 85025; 85027; 86850; 86900; 86901; J0665; J2405; J2795; J3010

== ENCOUNTER 2024-12-11 18:16 | Emergency (ER) | payer BC, SELFPAY ==
[2024-12-11] VITALS (28 sets, daily range): BP systolic 123–163; BP diastolic 70–101; PULSE 79–104; TEMP 36.9–38.1; O2SAT 91–98; BMI 47.4
--- NOTE | 2024-12-11 18:40 | ECG_ITS ---
[facility] Test Date: 2024-12-11 Pat Name: KAREEN FORMAN Department: Room: - Gender: Female Pediatric Associate: : 1995 Requested By: 1030 Order Number: [id number] Reading MD: PEDRO LUIS HUNTLEY M.D. Measurements Intervals [place] Rate: 96 P: 22 MS: 132 QRS: 63 QRSD: 80 T: 41 QT: 316 QTc: 370 Interpretive Statements 1100 Sinus rhythm 2420 RSR (QR) in lead V1/V2, consistent with right ventricular conduction delay 9130 borderline ECG No previous ECG available for comparison Electronically Signed On 12-12-2024 5:25:20 EDT by PEDRO LUIS HUNTLEY M.D.
--- NOTE | 2024-12-11 18:41 | ED_ITS ---
HPI HPI - General Adult General Chief complaint: Chest Pain Stated complaint: 1 WEEK, FEVER, SIDE PAIN, SWELLING Time Seen by Provider: 12/11/24 18:31 History of Present Illness HPI narrative: 29-year-old female presents to the emergency department for chest pain and shortness of breath. The pain is on the right lower lateral aspect of her chest and it began this morning. The patient states she had a temperature of 103 degrees at home. She did not have a fever at triage. She is worried because she had a vaginal delivery 3 days ago and her sister had pulmonary embolism after delivering a baby. The patient personally does not have a history of DVT or PE. Related Data Home Medications ?Medication ?Instructions ?Recorded ?Confirmed No Known Home Medications 12/11/24 12/11/24 Allergies Allergy/AdvReac Type Severity Reaction Status Date / Time No Known Drug Allergies Allergy Verified 12/11/24 18:32 Opioid HPI Opioid Management Most Recent Opioid Data: Last Pain Scale 2 12/10/24 07:58 12/10/24 Last Pain Assessment 12/10/24 10:30 Ur Phencyclidine Scrn Negative (NEGATIVE) 12/07/24 17:00 0402/25 Review of Systems ROS Narrative A ten point review of systems is negative except as noted above. PFSH PFSH Social History Little interest or pleasure in doing things: not at all Feeling down, depressed, or hopeless: not at all Exam Narrative Exam Narrative: Nurses note and vital signs reviewed and patient is not hypoxic. General: The patient appears well and in no apparent distress. Patient is resting comfortably on cart. Skin: Warm, dry, no pallor noted. There is no rash noted. Head: Normocephalic, atraumatic Eye: Normal conjunctiva, no drainage Ears, Nose, Mouth, and Throat: oral mucosa is moist. Nares patent. Cardiovascular: Regular Rate and Rhythm, borderline tachycardia Respiratory: Patient is in no distress, no accessory muscle use, lungs are clear to auscultation, no wheezing, rales or rhonchi Back: non-tender GI: Soft and nontender Musculoskeletal: No joint Neurological: A&O, normal speech Psychiatric: Cooperative Medical Decision Making MDM Narrative Medical decision making narrative: Tests are ordered including CT angiogram and the patient is signed out to Dr. Becerra at change of shift. Differential Diagnosis Differential Diagnosis: PE, pneumonia, pneumothorax Discharge Plan Discharge Chief Complaint: Chest Pain Clinical Impression: Chest pain Patient Disposition: Still a Patient Prescriptions / Home Meds: No Action No Known Home Medications Print Language: [place] Citizen Referrals: JIMMY CLIFFORD [Primary Care Provider] - 1 week
[2024-12-11 19:04] LABS: Hematocrit 27.5 % (36.0-48.0); Hemoglobin 8.5 g/dL (12.0-16.0); Mean Corpuscular HGB Conc 30.9 g/dL (29.9-35.2); Mean Corpuscular Hemoglobin 23.4 pg (26.7-34.0); Mean Corpuscular Volume 75.8 fL (81.0-99.0); Platelet Count 273 10^3/uL (150-450); Red Blood Count 3.63 10^6/uL (4.20-5.40); Red Cell Distribution Width 16.2 % (11.0-15.0); White Blood Count 7.3 10^3/uL (4.0-11.0)
[2024-12-11 19:24] LABS: Anion Gap 12.9; BUN Creatinine Ratio 12.9; Calcium 7.7 mg/dL (8.5-10.1); Chloride 104 mmol/L (98-107); Estimated GFR (African America >60 (>=60 mL/min/1.73m^2); Estimated GFR (Non-African Ame >60 (>=60 mL/min/1.73m^2); Glucose 85 mg/dL (74-106); Sodium 137 mmol/L (136-145); Troponin I High Sensitivity 37.4 pg/mL (4.0-51.3)
[2024-12-11 19:28] LABS: Potassium 2.9 mmol/L (3.5-5.1)
[2024-12-11 19:45] LABS: Lymphocytes Absolute Manual 0.65 10^3/uL (1.20-3.80); Monocytes Absolute Manual 0.58 10^3/uL (0.30-0.80); Segmented Neut Absolute Manual 6.05 10^3/uL (1.4-6.5)
[2024-12-11] MEDS: POTASSIUM BICARBONATE/CIT 25 MEQ TABLET EFF 50 MEQ PO (20:08)
[2024-12-11] MEDS: CALCIUM GLUCONATE 1,000 MG/10 ML VIAL 1000 MG IVP (20:19)
[2024-12-11 20:27] LABS: Alanine Aminotransferase 96 U/L (14-59); Albumin Globulin Ratio 0.4; Albumin Level 1.7 g/dL (3.4-5.0); Alkaline Phosphatase 146 U/L (46-116); Aspartate Amino Transferase 90 U/L (15-37); Bilirubin Direct 0.1 mg/dL (0.0-0.2); Bilirubin Total 0.5 mg/dL (0.2-1.0); Total Protein 5.7 g/dL (6.4-8.2)
[2024-12-11] MEDS: POTASSIUM CHLORIDE IN 0.9%NACL 1,000 ML 250 ML IV (20:37)
[2024-12-11] MEDS: LEVOFLOXACIN IN DEXTROSE 5 % 750 MG/150 ML PREMIX 100 MG IV (21:30)
[2024-12-11] MEDS: LABETALOL HCL 100 MG TABLET 200 MG PO (21:40)
[2024-12-11] MEDS: ACETAMINOPHEN 500 MG TABLET 1000 MG PO (21:40)
[2024-12-12 01:13] VITALS: BP 130/78; PULSE 75; O2SAT 96
== END 2024-12-12 01:16 | disposition home or self-care (01) ==
PROVIDERS: Emergency Medicine; Emergency Provider Emergency Medicine
DX: O90.89 Other complications of the puerperium, not elsewhere classified (principal); R07.9 Chest pain, unspecified; R06.02 Shortness of breath; R79.89 Other specified abnormal findings of blood chemistry
CPT/HCPCS: 36415; 71045; 71275; 80048; 80076; 83690; 84484; 85007; 85027; 93005; 96365; 96366; 96368; 96375; 99285; J0612; Q9967

== ENCOUNTER 2024-12-29 10:39 | Outpatient (OUT) | payer BC, SELFPAY ==
[2024-12-29 11:10] LABS: Basophils Absolute Auto 0.1 10^3/uL (0.0-0.1); Basophils Percent Auto 0.8 % (0.2-2.0); Eosinophils Absolute Auto 0.1 10^3/uL (0.0-0.7); Eosinophils Percent Auto 1.8 % (0.9-7.0); Hematocrit 39.2 % (36.0-48.0); Hemoglobin 11.4 g/dL (12.0-16.0); Immature Granulocytes Abs Auto 0.01 10^3/uL (0.00-0.03); Immature Granulocytes Pct Auto 0.2 % (0.0-0.5); Lymphocytes Absolute Auto 1.7 10^3/uL (1.2-3.8); Lymphocytes Percent Auto 28.7 % (20.5-60.0); Mean Corpuscular HGB Conc 29.1 g/dL (29.9-35.2); Mean Corpuscular Hemoglobin 22.3 pg (26.7-34.0); Mean Corpuscular Volume 76.6 fL (81.0-99.0); Mean Platelet Volume 8.7 fL (9.5-13.5); Monocytes Absolute Auto 0.5 10^3/uL (0.3-0.8); Monocytes Percent Auto 8.7 % (1.7-12.0); Neutrophils Absolute Auto 3.6 10^3/uL (1.4-6.5); Neutrophils Percent Auto 59.8 % (43.0-75.0); Platelet Count 534 10^3/uL (150-450); Red Blood Count 5.12 10^6/uL (4.20-5.40); Red Cell Distribution Width 16.7 % (11.0-15.0)
[2024-12-29 11:56] LABS: Alanine Aminotransferase 26 U/L (14-59); Albumin Globulin Ratio 0.8; Albumin Level 3.1 g/dL (3.4-5.0); Alkaline Phosphatase 149 U/L (46-116); Anion Gap 14.4; Aspartate Amino Transferase 21 U/L (15-37); BUN Creatinine Ratio 13.6; Bilirubin Total 0.8 mg/dL (0.2-1.0); Calcium 9.1 mg/dL (8.5-10.1); Carbon Dioxide 25.4 mmol/L (21.0-32.0); Chloride 104 mmol/L (98-107); Estimated GFR (African America >60 (>=60 mL/min/1.73m^2); Estimated GFR (Non-African Ame >60 (>=60 mL/min/1.73m^2); Globulin 3.8 g/dL; Glucose 87 mg/dL (74-106); Potassium 4.8 mmol/L (3.5-5.1); Sodium 139 mmol/L (136-145); Total Protein 6.9 g/dL (6.4-8.2)
== END 2024-12-29 10:40 | disposition home or self-care (01) ==
LOC: LAB 10:42
PROVIDERS: Visit Provider Obstetrics & Gynecology
DX: Z01.30 Encounter for examination of blood pressure without abnormal findings (principal); E83.51 Hypocalcemia; D64.9 Anemia, unspecified; R03.0 Elevated blood-pressure reading, without diagnosis of hypertension
CPT/HCPCS: 36415; 80053; 85025

== ENCOUNTER 2025-04-20 15:25 | Outpatient (REF) | payer BC, SELFPAY ==
--- OUTSIDE RECORDS SUMMARY | 2025-04-20 17:10 | XMS_ITS | CCD ---
Author Organization [facility] Care Team Providers [facility] [place] Former Machine Name Role Phone DR CARRIE PAYAN Primary Care Unavailable ANGÉLICA NARAYANAN Attending Unavailable ANGÉLICA NARAYANAN Consulting Unavailable ANGÉLICA NARAYANAN Admitting Unavailable MARQUIS HENSON Consulting Unavailable ORA, DR BUTLER Consulting Unavailable ORA, DR BUTLER Primary Care Unavailable ORA, DR BUTLER Admitting Unavailable ORA, DR BUTLER Attending Unavailable Karla Ortega MD Primary Care Provider Karla Ortega DO Primary Care Provider CARRIE PAYAN Attending Unavailable ORA, CARRIE Attending Unavailable GRANT, KARLA Attending Unavailable GRANT, KARLA Attending Unavailable RGANT, KARLA Attending Unavailable GRANT, KARLA Attending Unavailable ORA, CARRIE Attending Unavailable ORA, CARRIE Attending Unavailable ORA, CARRIE Attending Unavailable GRANT, KARLA Attending Unavailable ORA, CARRIE Attending Unavailable ORA, CARRIE Attending Unavailable ORA, CARRIE Attending Unavailable GRANT, KARLA Attending Unavailable Medications Current Medications Medication Drug Class(es) Dates Sig (Normalized) Sig (Original) cephalexin 500 mg oral capsule (2 sources) Cephalosporin Antibacterial Start: 09-11-19 25 End: 09-18-19 25 take 1 capsule by mouth in the [...] 7 days. 21 capsule 2024 09/18/2024 Active 1 ml medroxyPROGESTERone acetate 150 mg/ml prefilled syringe (5 sources) Progestin Start: 01-21-20 medroxyPROGESTERone (Depo-Provera) 150 MG/ML suspension prefilled syringe injection syringe Indications: Encounter for initial prescription of injectable contraceptive Inject 1 mL (150 mg) into the shoulder, thigh, or buttocks 1 (one) time for 1 dose 1 mL 2 01/20/2025 Active metoclopramide 5 mg oral tablet (14 sources) Dopamine-2 Receptor Antagonist End: 09-11-19 metoclopramide (Reglan) 5 MG tablet Take 5 mg by mouth in the morning and 5 mg at noon and 5 mg in the evening and 5 mg before bedtime. 2024 Discontinued pramoxine hydrochloride 10 mg/ml rectal foam (3 sources) Start: 11-14-19 End: 11-24-19 pramoxine (Proctofoam) 1 % foam Indications: External [...] by mouth Daily 30 tablet 6 09/25/2024 01/20/2025 Discontinued azithromycin 250 mg oral tablet (11 sources) Macrolide Antimicrobial Start: 10-09-2024 End: 11-06-2024 azithromycin (Zithromax Z-Fam) 250 MG tablet Indications: 29 weeks gestation of , Third trimester As directed 6 tablet 10/09/2024 11/06/2024 Discontinued hydrocortisone 10 mg/ml rectal cream (18 sources) Corticosteroid Start: 11-17-2024 End: 01-20-2025 Preparation H 1 % cream Indications: External hemorrhoid APPLY TO AFFECTED AREA TWICE A DAY 28.4 g 11/17/2024 01/20/2025 Discontinued labetalol hydrochloride 200 mg oral tablet (6 sources) beta-Adrenergic Artie Start: 12-29-2024 End: 01-20-2025 take 0.5 tablet by mouth in the morning labetalol (Normodyne) 200 MG tablet Indications: Hypertension, unspecified type (CMS/HCC) Take 0.5 tablets (100 mg) by mouth in the morning and 0.5 tablets (100 mg) before bedtime. 30 tablet 12/29/2024 01/20/2025 Discontinued Start: 12-12-2024 End: 12-24-2024 take 1 tablet by mouth in the morning labetalol (Normodyne) 200 MG tablet Indications: Hypertension, unspecified type (CMS/HCC) Take 1 tablet (200 mg) by mouth in the morning and 1 tablet (200 mg) before bedtime. 60 tablet 12/24/2024 Active nitrofurantoin, macrocrystals 25 mg / nitrofurantoin, monohydrate 75 mg oral capsule (6 sources) Nitrofuran Antibacterial Start: 09-19-2024 End: 09-26-2024 take 1 capsule by mouth in the morning nitrofurantoin, macrocrystal-monohydrate, (Macrobid) 100 MG capsule Indications: UTI symptoms [...] Problem Classification Problem Date Documented Date Episodic/Chronic Contraceptive and procreative management (2 sources) Contraception status; Translations: [Encounter for initial prescription of injectable contraceptive] 01-20-2025 Episodic Deficiency and other anemia (2 sources) Anemia; Translations: [Anemia, unspecified] 12-22-2024 Episodic Diabetes mellitus without complication (2 sources) Abnormal [...] Translations: [Irregular menstruation, unspecified] 05-16-2024 Chronic Other aftercare (2 sources) Patient encounter status; Translations: [Encounter for follow-up examination after completed treatment for conditions other than malignant neoplasm] 12-22-2024 Episodic Other circulatory disease (2 sources) Elevated blood pressure; Translations: [Elevated blood-pressure reading, without diagnosis of hypertension] 12-22-2024 Episodic Other complications of (2 sources) Excessive growth [...] noninflammatory disorders of vagina] 11-13-2024 Episodic Other nutritional; endocrine; and metabolic disorders (2 sources) Hypocalcemia; Translations: [Hypocalcemia] 12-22-2024 Chronic Other and delivery including normal (20 sources) [...] Name Value Interpretation Reference Range Facility ALL CBC WITH AUTO DIFFon BASOPHILS ABSOLUTE AUTO 0.1 N [facility] Basophils/100 WBC (Bld) 0.8 % 0.2 - 2.0 % [facility] Eosinophils/100 WBC (Bld) 1.8 % 0.9 - 7.0 % [facility] Erythrocyte distribution width (RBC) [Ratio] 16.7 % High 11.0 - 15.0 % [facility] Hematocrit (Bld) [Volume fraction] 39.2 % 36.0 - 48.0 % [facility] Hemoglobin (Bld) [Mass/Vol] 11.4 g/dL Low 12.0 - 16.0 g/dL [facility] IMMATURE GRANULOCYTES ABS AUTO 0.01 [facility] Immature granulocytes/100 WBC (Bld) 0.2 % 0.0 - 0.5 % [facility] Interpretation and review of laboratory results Abnormal [facility] LYMPHOCYTES ABSOLUTE AUTO 1.7 [facility] Lymphocytes/100 WBC (Bld) 28.7 % 20.5 - 60.0 % [facility] MCH (RBC) [Entitic mass] 22.3 pg Low 26.7 - 34.0 pg [facility] MCHC (RBC) [Mass/Vol] 29.1 g/dL Low 29.9 - 35.2 g/dL [facility] MCV (RBC) [Entitic vol] 76.6 fL Low 81.0 - 99.0 fL [facility] MONOCYTES ABSOLUTE AUTO 0.5 N [facility] Monocytes/100 WBC (Bld) 8.7 % 1.7 - 12.0 % [facility] NEUTROPHILS ABSOLUTE AUTO 3.6 [facility] Neutrophils/100 WBC (Bld) 59.8 % 43.0 - 75.0 % [facility] Platelet mean volume (Bld) [Entitic vol] 8.7 fL Low 9.5 - 13.5 fL [facility] TBH EO # 0.1 [facility] PLT 534 High [facility] RBC 5.12 [facility] TB WBC 6 [facility] Urinalysis macro (dipstick) panel (U)on 12-22-2024 Bilirubin, UA Negative Negative - 4(70) +++ mg/dL [facility] Blood, UA Positive Negative - 50 Roberto/mcL [facility] Comment on above: large Clarity, UA Clear [facility] Color, UA Dark Bindu [facility] Glucose, UA Negative Negative - 2000(110) ++++ mg/dL [facility] Interpretation and review of laboratory results Abnormal [facility] Ketones, UA Negative Negative - 160(16) ++++ mg/dL [facility] Leukocytes, UA Positive Negative - 500+++ Christian/mcL [facility] Comment on above: small Nitrite, UA Negative Negative - Positive [facility] pH, UA 7 5 - 9 [facility] Protein, UA Positive Negative - 2000(20) ++++ mg/dL [facility] Comment on above: 100 Spec Grav, UA 1.02 1 - 1.03 [facility] Urobilinogen, UA 1.0 0.2 - 12 mg/dL [facility] ALL CBC WITH AUTO DIFFon BASOPHILS ABSOLUTE AUTO 0 N [facility] Basophils/100 WBC (Bld) 0.1 % Low 0.2 - 2.0 % [facility] Eosinophils/100 WBC (Bld) 0.1 % Low 0.9 - 7.0 % [facility] Erythrocyte distribution width (RBC) [Ratio] 16.2 % High 11.0 - 15.0 % [facility] Hematocrit (Bld) [Volume fraction] 27.2 % Low 36.0 - 48.0 % [facility] Hemoglobin (Bld) [Mass/Vol] 8.5 g/dL Low 12.0 - 16.0 g/dL [facility] IMMATURE GRANULOCYTES ABS AUTO 0.07 High [facility] Immature granulocytes/100 WBC (Bld) 0.5 % 0.0 - 0.5 % [facility] Interpretation and review of laboratory results Abnormal [facility] LYMPHOCYTES ABSOLUTE AUTO 0.7 Low [facility] Lymphocytes/100 WBC (Bld) 5.2 % Low 20.5 - 60.0 % [facility] MCH (RBC) [Entitic mass] 23.8 pg Low 26.7 - 34.0 pg [facility] MCHC (RBC) [Mass/Vol] 31.3 g/dL 29.9 - 35.2 g/dL [facility] MCV (RBC) [Entitic vol] 76.2 fL Low 81.0 - 99.0 fL [facility] MONOCYTES ABSOLUTE AUTO 0.5 N [facility] Monocytes/100 WBC (Bld) 3.9 % 1.7 - 12.0 % [facility] NEUTROPHILS ABSOLUTE AUTO 12.6 High [facility] Neutrophils/100 WBC (Bld) 90.2 % High 43.0 - 75.0 % [facility] Platelet mean volume (Bld) [Entitic vol] 9.1 fL Low 9.5 - 13.5 fL [facility] TBH EO # 0 [facility] TB PLT 247 [facility] TB RBC 3.57 Low [facility] WBC 13.9 High [facility] HMHP CBC WITH PLATELET NO DI FFERENTIALon 12-07-2024 Erythrocyte distribution width (RBC) [Ratio] 16 % High 11.0 - 15.0 % [facility] Hematocrit (Bld) [Volume fraction] 30.8 % Low 36.0 - 48.0 % [facility] Hemoglobin (Bld) [Mass/Vol] 9.5 g/dL Low 12.0 - 16.0 g/dL [facility] Interpretation and review of laboratory results Abnormal [facility] MCH (RBC) [Entitic mass] 23.4 pg Low 26.7 - 34.0 pg [facility] MCHC (RBC) [Mass/Vol] 30.8 g/dL 29.9 - 35.2 g/dL [facility] MCV (RBC) [Entitic vol] 75.9 fL Low 81.0 - 99.0 fL [facility] Platelet mean volume (Bld) [Entitic vol] 8.8 fL Low 9.5 - 13.5 fL [facility] TB PLT 350 [facility] RBC 4.06 Low [facility] WBC 7.5 [facility] No Panel InformationOrdered By: Radiologist Radiology on 12-04-2024 [facility] Work Phone: No Panel Informationon 12-04 Radiology Study observation (narrative) [facility] US OB BPP W NON-STRESS on 12-04-2024 [place] [address] Ultrasound Report Signed Patient: KAREEN FORMAN MR#: [id number] : 1995 Acct:[id number] Age/Sex: 29 / F ADM Date: 12/04/24 Loc: US Attending Dr: Carrie Payan D.O. Ordering Physician: Carrie Payan D.O. Date of Service: 12/04/24 Procedure(s): US OB BPP w non-stress Accession Number(s): [id number] cc: KARLA ORTEGA; Carrie Payan D.O. [place] [address] Patient Name: KAREEN FORMAN MRN: [id number] date: 1995 Sex: F Assigned Patient Location: US Current Patient Location: Accession/Order Number: [id number] Exam Date: 12/04/2024 13:07 Report Date: 12/04/2024 [...] Bita Mcdonough M.D.12/04/2024 1:14 PM Dictation Location: [place] [address] Electronically authenticated by: [id number] Y Date: 12/04/2024 13:14 Dictated By: Bita Mcdonough M.D. Signed By: 12/04/24 1317 DD/ 1314 TD/TT: Juice Weigher: [facility] Radiology, Radiologist, MD - 12/04/2024 [place] [address] Ultrasound Report Signed Patient: KAREEN FORMAN MR#: [id number] : 1995 Acct:[id number] Age/Sex: 29 / F ADM Date: 12/04/24 Loc: US Attending Dr: Carrie Payan D.O. Ordering Physician: Carrie Payan D.O. Date of Service: 12/04/24 Procedure(s): US OB BPP w non-stress Accession Number(s): [id number] cc: KARLA ORTEGA; Carrie Payan D.O. The [place] [id number] Patient Name: KAREEN FORMAN MRN: [facility]:[id number] date: 1995 Sex: F Assigned Patient Location: US Current Patient Location: Accession/Order Number: [id number] Exam Date: 12/04/2024 13:07 Report Date: 12/04/2024 [...] Bita Mcdonough M.D.12/04/2024 1:14 PM Dictation Location: [place] [address] Electronically authenticated by: [id number] Y Date: 12/04/2024 13:14 Dictated By: Bita Mcdonough M.D. Signed By: 12/04/24 1317 DD/ 1314 TD/TT: Juice Weigher: [facility] US OB GROWTHon 12-04-2024 [place] [address] Ultrasound Report Signed Patient: KAREEN FORMAN MR#: [id number] : 1995 Acct:[id number] Age/Sex: 29 / F ADM Date: 12/04/24 Loc: US Attending Dr: Carrie Payan D.O. Ordering Physician: Carrie Payan D.O. Date of Service: 12/04/24 Procedure(s): US OB growth Accession Number(s): [id number] cc: KARLA ORTEGA; Carrie Payan D.O. [place] [address] Patient Name: KAREEN FORMAN MRN: [id number] date: 1995 Sex: F Assigned Patient Location: [facility] Current Patient Location: Accession/Order Number: [id number] Exam Date: 12/04/2024 13:07 Report Date: 12/04/2024 [...] Bita Mcdonough M.D.12/04/2024 1:14 PM Dictation Location: [place] [address] Electronically authenticated by: [id number] Y Date: 12/04/2024 13:14 Dictated By: Bita Mcdonough M.D. Signed By: 12/04/24 1317 DD/ 1314 TD/TT: Juice Weigher: [facility] Radiology, Radiologist, MD - 12/04/2024 [place] [address] Ultrasound Report Signed Patient: KAREEN FORMAN MR#: [id number] : 1995 Acct:[id number] Age/Sex: 29 / F ADM Date: 12/04/24 Loc: Attending Dr: Carrie Payan D.O. Ordering Physician: Carrie Payan D.O. Date of Service: 12/04/24 Procedure(s): US OB growth Accession Number(s): [id number] cc: KARLA ORTEGA; Carrie Payan D.O. The [place] [id number] Patient Name: KAREEN FORMAN MRN: [facility]:[id number] date: 1995 Sex: F Assigned Patient Location: [facility] Current Patient Location: Accession/Order Number: [id number] Exam Date: 12/04/2024 13:07 Report Date: 12/04/2024 13:14 At the request of: CARRIE ORA DO Procedure: US OB BPP w non-stress [...] Bita Mcdonough M.D.12/04/2024 1:14 PM Dictation Location: [place] [address] Electronically authenticated by: [id number] Y Date: 12/04/2024 13:14 Dictated By: Bita Mcdonough M.D. Signed By: 12/04/24 1317 DD/ 1314 TD/TT: Juice Weigher: [facility] ALL MISCELLANEOUS TESTon MISCELLANEOUS TEST COMMENT . [facility] Comment on above: Test Ordered: [id number] Strep Gp B Culture+Rflx Strep Gp B Culture+Rflx Negative CB Reference Range: Negative Centers for Disease Control and Prevention (CDC) and [place] [employer] Gynec[employer] (ACOG) guidelines [...] resistance to clindamycin is noted. Performed at: [address] [id number] Dock Clerk: Alexis Ortiz PhD, Phone: [phone] GROUP B STREP [id number] CULTURE, GROUP B STREP WITH SUSCEPTIBILITY [facility] OB BPP W NON-STRESS on 11-27-2024 [place] [address] Ultrasound Report Signed Patient: KAREEN FORMAN MR#: [id number] : 1995 Acct:[id number] Age/Sex: 29 / F ADM Date: 11/27/24 Loc: Attending Dr: Carrie Payan D.O. Ordering Physician: Carrie Payan D.O. Date of Service: 11/27/24 Procedure(s): OB BPP w non-stress Accession Number(s): [id number] cc: KARLA ORTEGA; Carrie Payan D.O. [address] [address] Patient Name: KAREEN FORMAN MRN: [id number] date: 1995 Sex: F Assigned Patient Location: Current Patient Location: LAB Accession/Order Number: [id number] Exam Date: 11/27/2024 14:32 Report Date: 11/27/2024 14:34 At the request of: CARRIE ORA DO Procedure: US OB BPP w non-stress BPP. Reason for exam: Excessive growth. COMPARISON: BPP 11/20/2024 TECHNIQUE: Transabdominal imaging of the gravid uterus was obtained. FINDINGS: Homebirth Midwife reports the BPP is 8 out of 8. JENS measures 15.9cm. heart rate 138 bpm. US/US OB BPP w non-stress Impression: BPP 8 out of 8. Impression dictated by: Claudio Schuster Jr., D.O.11/27/2024 2:34 PM Dictation Location: [place] [address] Electronically authenticated by: [id number] Y Date: 11/27/2024 14:34 Dictated By: Claudio Schuster M.D. Signed By: 11/27/24 1436 DD/ TD/TT: Juice Weigher: [facility] Radiology, Radiologist, MD - 11/27/2024 [place] [address] Ultrasound Report Signed Patient: KAREEN FORMAN MR#: [id number] : 1995 Acct:[id number] Age/Sex: 29 / F ADM Date: 11/27/24 Loc: US Attending Dr: Carrie Payan D.O. Ordering Physician: Carrie Payan D.O. Date of Service: 11/27/24 Procedure(s): US OB BPP w non-stress Accession Number(s): [id number] cc: KARLA ORTEGA; Carrie Payan D.O. [place] [address] Patient Name: KAREEN FORMAN MRN: [facility]:[id number] date: 1995 Sex: F Assigned Patient Location: US Current Patient Location: LAB Accession/Order Number: [id number] Exam Date: 11/27/2024 14:32 Report Date: 11/27/2024 14:34 At the request of: CARRIE PAYAN DO Procedure: US OB BPP w non-stress BPP. Reason for exam: Excessive growth. COMPARISON: BPP 11/20/2024 TECHNIQUE: Transabdominal imaging of the gravid uterus was obtained. FINDINGS: Homebirth Midwife reports the BPP is 8 out of 8. JENS measures 15.9cm. heart rate 138 bpm. US/US OB BPP w non-stress Impression: BPP 8 out of 8. Impression dictated by: Claudio Schuster Jr., D.O.11/27/2024 2:34 PM Dictation Location: [facility] Electronically authenticated by: [id number] Y Date: 11/27/2024 14:34 Dictated By: Claudio Schuster M.D. Signed By: 11/27/24 143 DD/ 33 TD/TT: Juice Weigher: [facility] Radiology Study observation (narrative) [facility] US OB BPP W NON-STRESS Ordered By: Radiologist Radiology on 11-27-2024 [facility] Work Phone: Urinalysis macro (dipstick) panel (U)on 11-26-2024 Bilirubin, UA Negative Negative - 4(70) +++ mg/dL [facility] Blood, UA Positive Negative - 50 Roberto/mcL [facility] Clarity, UA Clear [facility] Color, UA Yellow [facility] Glucose, UA Negative Negative - 2000(110) ++++ mg/dL [facility] Interpretation and review of laboratory results Abnormal [facility] Ketones, UA Negative Negative - 160(16) ++++ mg/dL [facility] Leukocytes, UA Trace Negative - 500+++ Christian/mcL [facility] Nitrite, UA Negative Negative - Positive [facility] pH, UA 7.5 5 - 9 [facility] Protein, UA Trace Negative - 2000(20) ++++ mg/dL [facility] Spec Grav, UA 1.025 1 - 1.03 [facility] Urobilinogen, UA 1.0 0.2 - 12 mg/dL [facility] US OB BPP W NON-STRESS on 11-20-[address] [address] Ultrasound Report Signed Patient: KAREEN FORMAN MR#: [id number] : 1995 Acct:[id number] Age/Sex: 29 / F ADM Date: 11/20/24 Loc: [facility] 250-[address]: Carrie Payan D.O. Ordering Physician: Carrie Payan D.O. Date of Service: 11/20/24 Procedure(s): US OB BPP w non-stress Accession Number(s): [id number] cc: KARLA ORTEGA; Carrie Payan D.O. The [place] [id number] Patient Name: KAREEN FORMAN MRN: [facility]:[id number] date: 1995 Sex: F Assigned Patient Location: [facility] Current Patient Location: [facility] Accession/Order Number: [id number] Exam Date: 11/20/2024 11:45 Report Date: 11/20/2024 11:46 At the request of: CARRIE PAYAN DO Procedure: US OB BPP w non-stress BPP. Reason for exam: Excessive growth. COMPARISON: BPP 10/23/2024 TECHNIQUE: Transabdominal imaging of the gravid uterus was obtained. FINDINGS: Homebirth Midwife reports the BPP is 8 out of 8. JENS measures 14.2cm. heart rate 134 bpm. US/US OB BPP w non-stress Impression: BPP 8 out of 8. Impression dictated by: Claudio Schuster Jr., D.O.11/20/2024 11:46 AM Dictation Location: [place] [address] Electronically authenticated by: [id number] Y Date: 11/20/2024 11:46 Dictated By: Claudio Schuster M.D. Signed By: 11/20/24 1149 DD/ 1146 TD/TT: Juice Weigher: [facility] Radiology, Radiologist, - 11/20/2024 [place] [address] Ultrasound Report Signed Patient: KAREEN FORMAN MR#: [id number] : 1995 Acct:[id number] Age/Sex: 29 / F ADM Date: 11/20/24 Loc: [facility] 250-[address]: Carrie Payan D.O. Ordering Physician: Carrie Payan D.O. Date of Service: 11/20/24 Procedure(s): US OB BPP w non-stress Accession Number(s): [id number] cc: KARLA ORTEGA; Carrie Payan D.O. [place] [id number] Patient Name: KAREEN FORMAN MRN: [facility]:[id number] date: 1995 Sex: F Assigned Patient Location: [facility] Current Patient Location: [facility] Accession/Order Number: [id number] Exam Date: 11/20/2024 11:45 Report Date: 11/20/2024 11:46 At the request of: CARRIE PAYAN DO Procedure: US OB BPP w non-stress BPP. Reason for exam: Excessive growth. COMPARISON: BPP 10/23/2024 TECHNIQUE: Transabdominal imaging of the gravid uterus was obtained. FINDINGS: Homebirth Midwife reports the BPP is 8 out of 8. JENS measures 14.2cm. heart rate 134 bpm. US/US OB BPP w non-stress Impression: BPP 8 out of 8. Impression dictated by: Claudio Schuster Jr., D.O.11/20/2024 11:46 AM Dictation Location: [place] [address] Electronically authenticated by: [id number] Y Date: 11/20/2024 11:46 Dictated By: Claudio Schuster M.D. Signed By: 11/20/24 1149 DD/ 1146 TD/TT: Juice Weigher: [facility] Radiology Study observation (narrative) [facility] US OB BPP W NON-STRESS Ordered By: Radiologist Radiology on 11-20-2024 [facility] Work Phone: US OB BPP W NON-STRESS on 11-13-2024 [place] [address] Ultrasound Report Signed Patient: KAREEN FORMAN MR#: [id number] : 1995 Acct:[id number] Age/Sex: 29 / F ADM Date: 11/13/24 Loc: [facility] 250-[address]: Carrie Payan D.O. Ordering Physician: Carrie Payan D.O. Date of Service: 11/13/24 Procedure(s): US OB BPP w non-stress Accession Number(s): [id number] cc: KARLA ORTEGA; Carrie Payan D.O. [place] [address] Patient Name: KAREEN FORMAN MRN: [id number] date: 1995 Sex: F Assigned Patient Location: Current Patient Location: Accession/Order Number: [id number] Exam Date: 11/13/2024 11:58 Report Date: 11/13/2024 11:59 At the request of: CARRIE PAYAN DO Procedure: US OB BPP w non-stress BIOPHYSICAL PROFILE: CLINICAL INFORMATION: Excessive growth COMPARISON: 11/06/2024 There is a single live intrauterine gestation in cephalic presentation. The reported gestational age is 34 weeks 6 days. The heart rate [id number] beats per minute. FINDINGS: TONE: 1 or [...] Bita Mcdonough M.D.11/13/2024 11:59 AM Dictation Location: [place] [address] Electronically authenticated by: [id number] Y Date: 11/13/2024 11:59 Dictated By: Bita Mcdonough M.D. Signed By: 11/13/24 1202 DD/ 1159 TD/TT: Juice Weigher: [facility] Radiology, Radiologist, MD - 11/13/2024 [place] [address] Ultrasound Report Signed Patient: KAREEN FORMAN MR#: [id number] : 1995 Acct:[id number] Age/Sex: 29 / F ADM Date: 11/13/24 Loc: [facility] 250-[address]: Carrie Payan D.O. Ordering Physician: Carrie Payan D.O. Date of Service: 11/13/24 Procedure(s): US OB BPP w non-stress Accession Number(s): [id number] cc: KARLA ORTEGA; Carrie Payan D.O. [place] [address] Patient Name: KAREEN FORMAN MRN: [facility]:[id number] date: 1995 Sex: F Assigned Patient Location: Current Patient Location: US Accession/Order Number: [id number] Exam Date: 11/13/2024 11:58 Report Date: 11/13/2024 11:59 At the request of: CARRIE PAYAN DO Procedure: US OB BPP w non-stress BIOPHYSICAL PROFILE: CLINICAL INFORMATION: Excessive growth COMPARISON: 11/06/2024 There is a single live intrauterine gestation in cephalic presentation. The reported gestational age is 34 weeks 6 days. The heart rate [id number] beats per minute. FINDINGS: TONE: 1 or [...] Bita Mcdonough M.D.11/13/2024 11:59 AM Dictation Location: [place] [address] Electronically authenticated by: [id number] Y Date: 11/13/2024 11:59 Dictated By: Bita Mcdonough M.D. Signed By: 11/13/24 1202 DD/ 1159 TD/TT: Juice Weigher: [facility] Radiology Study observation (narrative) [facility] US OB BPP W NON-STRESS Ordered By: Radiologist Radiology on 11-13-2024 [facility] Work Phone: Urinalysis macro (dipstick) panel (U)on 11-13-2024 Bilirubin, UA Negative Negative - 4(70) +++ mg/dL [facility] Blood, UA Negative Negative - 50 Roberto/mcL [facility] Clarity, UA Clear [facility] Color, UA Yellow [facility] Glucose, UA Negative Negative - 1999(110) ++++ mg/dL [facility] Interpretation and review of laboratory results Abnormal [facility] Ketones, UA Negative Negative - 160(16) ++++ mg/dL [facility] Leukocytes, UA Positive Negative - 500+++ Christian/mcL [facility] Comment on above: small Nitrite, UA Negative Negative - Positive [facility] pH, UA 6.5 5 - 9 [facility] Protein, UA Negative Negative - 1999(20) ++++ mg/dL [facility] Spec Grav, UA 1.02 1 - 1.03 [facility] Urobilinogen, UA 0.2 0.2 - 12 mg/dL [facility] Urinalysis macro (dipstick) panel (U)on 11-06-2024 Bilirubin, UA Negative Negative - 4(70) +++ mg/dL [facility] Blood, UA Negative Negative - 50 Roberto/mcL [facility] Clarity, UA Clear [facility] Color, UA Yellow [facility] Glucose, UA Negative Negative - 2000(110) ++++ mg/dL [facility] Interpretation and review of laboratory results Abnormal [facility] Ketones, UA Negative Negative - 160(16) ++++ mg/dL [facility] Leukocytes, UA Trace Negative - 500+++ Christian/mcL [facility] Nitrite, UA Negative Negative - Positive [facility] pH, UA 6.5 5 - 9 [facility] Protein, UA Negative Negative - 1999(20) ++++ mg/dL [facility] Spec Grav, UA 1.025 1 - 1.03 [facility] Urobilinogen, UA 2.0 0.2 - 12 mg/dL [facility] US OB BPP W NON-STRESS on 10-31-2024 [place] [address] Ultrasound Report Signed Patient: KAREEN FORMAN MR#: [id number] : 1995 Acct:[id number] Age/Sex: 29 / F ADM Date: 10/30/24 Loc: US Attending Dr: Carrie Payan D.O. Ordering Physician: Carrie Payan D.O. Date of Service: 10/30/24 Procedure(s): US OB BPP w non-stress Accession Number(s): [id number] cc: KARLA ORTEGA; Carrie Payan D.O. The [place] [address] Patient Name: KAREEN FORMAN MRN: [id number] date: 1995 Sex: F Assigned Patient Location: [facility] Current Patient Location: Accession/Order Number: [id number] Exam Date: 10/31/2024 10:24 Report Date: 10/31/2024 10:25 At the request of: CARRIE PAYNA DO Procedure: US OB BPP w non-stress BIOPHYSICAL PROFILE: CLINICAL INFORMATION: EXCESSIVE GROWTH AFFECTING O36.60X0 COMPARISON: 10/23/2024 There is a single live intrauterine gestation in cephalic presentation. Reported age is 32 weeks 6 days. The heart rate [id number] ( beats per minute. FINDINGS: TONE: 1 [...] This is in normal range. Total score: 8 US/US OB BPP w non-stress IMPRESSION: NORMAL BIOPHYSICAL PROFILE Impression dictated by: Bita Mcdonough M.D.10/31/2024 10:25 AM Dictation Location: [place] [address] Electronically authenticated by: [id number] Y Date: 10/31/2024 10:25 Dictated By: Bita Mcdonough M.D. Signed By: 10/31/24 1027 DD/ 1025 TD/TT: Juice Weigher: [facility] Radiology, Radiologist, MD - 10/31/2024 [place] [address] Ultrasound Report Signed Patient: KAREEN FORMAN MR#: [id number] : 1995 Acct:[id number] Age/Sex: 29 / F ADM Date: 10/30/24 Loc: US Attending Dr: Carrie Payan D.O. Ordering Physician: Carrie Payan D.O. Date of Service: 10/30/24 Procedure(s): US OB BPP w non-stress Accession Number(s): [id number] cc: KARLA ORTEGA; Carrie Payan D.O. The [place] [id number] Patient Name: KAREEN FORMAN MRN: [facility]:[id number] date: 1995 Sex: F Assigned Patient Location: [facility] Current Patient Location: Accession/Order Number: [id number] Exam Date: 10/31/2024 10:24 Report Date: 10/31/2024 10:25 At the request of: CARRIE PAYAN DO Procedure: US OB BPP w non-stress BIOPHYSICAL PROFILE: CLINICAL INFORMATION: EXCESSIVE GROWTH AFFECTING O36.60X0 COMPARISON: 10/23/2024 There is a single live intrauterine gestation in cephalic presentation. Reported age is 32 weeks 6 days. The heart rate [id number] ( beats per minute. FINDINGS: TONE: 1 [...] Bita Mcdonough M.D.10/31/2024 10:25 AM Dictation Location: [place] [address] Electronically authenticated by: [id number] Y Date: 10/31/2024 10:25 Dictated By: Bita Mcdonough M.D. Signed By: 10/31/24 1027 DD/ 1025 TD/TT: Juice Weigher: [facility] Radiology Study observation (narrative) [facility] US OB BPP W NON-STRESS Ordered By: Radiologist Radiology on 10-31-2024 [facility] Work Phone: US OB BPP W NON-STRESS on 10-23-2024 [place] [address] Ultrasound Report Signed Patient: KAREEN FORMAN MR#: [id number] : 1995 Acct:[id number] Age/Sex: 29 / F ADM Date: 10/23/24 Loc: US Attending Dr: Carrie Payan D.O. Ordering Physician: Carrie Payan D.O. Date of Service: 10/23/24 Procedure(s): US OB BPP w non-stress Accession Number(s): [id number] cc: KARLA ORTEGA; Carrie Payan D.O. [address] [address] Patient Name: KAREEN FORMAN MRN: [id number] date: 1995 Sex: F Assigned Patient Location: [facility] Current Patient Location: US Accession/Order Number: [id number] Exam Date: 10/23/2024 13:18 Report Date: 10/23/2024 22:17 At the request of: CARRIE PAYAN DO Procedure: US OB BPP w non-stress BPP. Reason for exam: Excessive growth. COMPARISON: BPP 10/16/2024. TECHNIQUE: Transabdominal imaging of the gravid uterus was obtained. FINDINGS: Homebirth Midwife reports the BPP is 8 out of 8. JENS measures 13.1 cm. heart rate 161 bpm. US/US OB BPP w non-stress Impression: BPP 8 out of 8. Correlation with NST is recommended. Impression dictated by: Claudio Schuster Jr., D.O.10/23/2024 10:17 PM Dictation Location: [place] [address] Electronically authenticated by: [id number] Y Date: 10/23/2024 22:17 Dictated By: Claudio Schuster M.D. Signed By: 10/23/242218 DD/ 16 TD/TT: Juice Weigher: [facility] Radiology, Radiologist, MD - 10/23/2024 [place] [address] Ultrasound Report Signed Patient: KAREEN FORMAN MR#: [id number] : 1995 Acct:[id number] Age/Sex: 29 / F ADM Date: 10/23/24 Loc: US Attending Dr: Carrie Payan D.O. Ordering Physician: Carrie Payan D.O. Date of Service: 10/23/24 Procedure(s): US OB BPP w non-stress Accession Number(s): [id number] cc: KARLA ORTEGA; Carrie Payan D.O. The [address] [address] Patient Name: KAREEN FORMAN MRN: [facility]:[id number] date: 1995 Sex: F Assigned Patient Location: [facility] Current Patient Location: US Accession/Order Number: [id number] Exam Date: 10/23/2024 13:18 Report Date: 10/23/2024 22:17 At the request of: CARRIE PAYAN DO Procedure: US OB BPP w non-stress BPP. Reason for exam: Excessive growth. COMPARISON: BPP 10/16/2024. TECHNIQUE: Transabdominal imaging of the gravid uterus was obtained. FINDINGS: Homebirth Midwife reports the BPP is 8 out of 8. JENS measures 13.1 cm. heart rate 161 bpm. US/US OB BPP w non-stress Impression: BPP 8 out of 8. Correlation with NST is recommended. Impression dictated by: Claudio Schuster Jr. DVel10/23/2024 10:17 PM Dictation Location: [facility] Electronically authenticated by: [id number] Y Date: 10/23/2024 22:17 Dictated By: Claudio Schuster M.D. Signed By: 10/23/242218 DD/ 16 TD/TT: Juice Weigher: [facility] Radiology Study observation (narrative) [facility] US OB BPP W NON-STRESS Ordered By: Radiologist Radiology on 10-23-2024 [facility] Work Phone: Urinalysis macro (dipstick) panel (U)on 10-23-2024 Bilirubin, UA Negative Negative - 4(70) +++ mg/dL [facility] Blood, UA Negative Negative - 50 Roberto/mcL [facility] Clarity, UA Clear [facility] Color, UA Yellow [facility] Glucose, UA Negative Negative - 1999(110) ++++ mg/dL [facility] Interpretation and review of laboratory results Abnormal [facility] Ketones, UA Negative Negative - 160(16) ++++ mg/dL [facility] Leukocytes, UA Trace Negative - 500+++ Christian/mcL [facility] Nitrite, UA Negative Negative - Positive [facility] pH, UA 6.5 5 - 9 [facility] Protein, UA Negative Negative - 2000(20) ++++ mg/dL [facility] Spec Grav, UA 1.025 1 - 1.03 [facility] Urobilinogen, UA 1.0 0.2 - 12 mg/dL [facility] US OB BPP W NON-STRESS on 10-16-2024 The [place] [id number] Ultrasound Report Signed Patient: KAREEN FORMAN MR#: [id number] : 1995 Acct:[id number] Age/Sex: 29 / F ADM Date: 10/16/24 Loc: US Attending Dr: Carrie Payan D.O. Ordering Physician: Carrie Payan D.O. Date of Service: 10/16/24 Procedure(s): US OB BPP w non-stress Accession Number(s): [id number] cc: KARLA ORTEGA; Carrie Payan D.O. The [address] [address] Patient Name: KAREEN FORMAN MRN: [facility]:[id number] date: 1995 Sex: F Assigned Patient Location: US Current Patient Location: Accession/Order Number: [id number] Exam Date: 10/16/2024 13:57 Report Date: 10/16/2024 [...] Signed By: 10/16/24 1544 DD/ 154 TD/TT: Juice Weigher: [facility] Radiology, Radiologist, MD - 10/16/2024 [place] [address] Ultrasound Report Signed Patient: KAREEN FORMAN MR#: [id number] : 1995 Acct:[id number] Age/Sex: 29 / F ADM Date: 10/16/24 Loc: US Attending Dr: Carrie Payan D.O. Ordering Physician: Carrie Payan D.O. Date of Service: 10/16/24 Procedure(s): US OB BPP w non-stress Accession Number(s): [id number] cc: KARLA ORTEGA; Carrie Payan D.O. [place] [address] Patient Name: KAREEN FORMAN MRN: [id number] date: 1995 Sex: F Assigned Patient Location: US Current Patient Location: Accession/Order Number: [id number] Exam Date: 10/16/2024 13:57 Report Date: 10/16/2024 [...] Signed By: 10/16/24 1544 DD/ 154 TD/TT: Juice Weigher: [facility] Radiology Study observation (narrative) [facility] US OB BPP W NON-STRESS Ordered By: Radiologist Radiology on 10-16-2024 [facility] Work Phone: US OB FOLLOW UP [...] is measuring large for gestational age. Electronically Signed:Electronicall y signed by ERIC ROONEY II, MD, PHD at 10-Oct-2024 07:43:20 AM [facility] Normal Not Available Comment on above: Order Comment: US OB SCAN FOR GROWTH Estimated Date of Delivery: 12/19/24 Gestational Age as of 09/25/2024: 27w6d Urinalysis macro (dipstick) panel (U)on 10-09-2024 Bilirubin, UA Negative Negative - 4(70) +++ mg/dL [facility] Blood, UA Negative Negative - 50 Roberto/mcL [facility] Clarity, UA Clear [facility] Color, UA Yellow [facility] Glucose, UA Positive Negative - 2000(110) ++++ mg/dL [facility] Comment on above: 100 Interpretation and review of laboratory results Abnormal [facility] Ketones, UA Positive Negative - 160(16) ++++ mg/dL [facility] Comment on above: 15 Leukocytes, UA Negative Negative - 500+++ Christian/mcL [facility] Nitrite, UA Negative Negative - Positive [facility] pH, UA 7 5 - 9 [facility] Protein, UA Trace Negative - 1999(20) ++++ mg/dL [facility] Spec Grav, UA 1.025 1 - 1.03 [facility] Urobilinogen, UA 0.2 0.2 - 12 mg/dL [facility] GLUCOSE TOLERANCE 3 HOURon 0 10-07-2024 GLUCOSE TOLERANCE 3 HOUR mg/dL [facility] Comment on above: GLU FAST 83 (<95) Co l: 10/07/24 0909 GLU 1HR 163 (<180) Col: 10/07/24 1012 GLU 2HR 146 (<155) Col: 10/07/24 1112 GLU 3HR 83 (<140) Col: 10/07/24 1212 [facility] Urinalysis macro (dipstick) panel (U)on 09-25-2024 Bilirubin, UA Negative Negative - 4(70) +++ mg/dL [facility] Blood, UA Negative Negative - 50 Roberto/mcL [facility] Clarity, UA Clear [facility] Color, UA Yellow [facility] Glucose, UA Negative Negative - 1999(110) ++++ mg/dL [facility] Interpretation and review of laboratory results Abnormal [facility] Ketones, UA Negative Negative - 160(16) ++++ mg/dL [facility] Leukocytes, UA Positive Negative - 500+++ Christian/mcL [facility] Comment on above: small Nitrite, UA Negative Negative - Positive [facility] pH, UA 8.5 5 - 9 [facility] Protein, UA Negative Negative - 1999(20) ++++ mg/dL [facility] Spec Grav, UA 1.02 1 - 1.03 [facility] Urobilinogen, UA 1.0 0.2 - 12 mg/dL [facility] Urinalysis macro (dipstick) panel (U)on 2024 Bilirubin, UA Negative Negative - 4(70) +++ mg/dL [facility] Blood, UA Negative Negative - 50 Roberto/mcL [facility] Clarity, UA Clear [facility] Color, UA Yellow [facility] Glucose, UA Negative Negative - 1999(110) ++++ mg/dL [facility] Interpretation and review of laboratory results Abnormal [facility] Ketones, UA Negative Negative - 160(16) ++++ mg/dL [facility] Leukocytes, UA Moderate Negative - 500+++ Christian/mcL [facility] Nitrite, UA Positive Negative - Positive [facility] pH, UA 7 5 - 9 [facility] Protein, UA Positive Negative - 2000(20) ++++ mg/dL [facility] Comment on above: 100 Spec Grav, UA 1.02 1 - 1.03 [facility] Urobilinogen, UA 1.0 0.2 - 12 mg/dL [facility] Urinalysis macro (dipstick) panel (U)on 08-14-2024 Bilirubin, UA Negative Negative - 4(70) +++ mg/dL [facility] Blood, UA Negative Negative - 50 Roberto/mcL [facility] Clarity, UA Clear [facility] Color, UA Yellow [facility] Glucose, UA Negative Negative - 1999(110) ++++ mg/dL [facility] Interpretation and review of laboratory results Abnormal [facility] Ketones, UA Negative Negative - 160(16) ++++ mg/dL [facility] Leukocytes, UA Negative Negative - 500+++ Christian/mcL [facility] Nitrite, UA Negative Negative - Positive [facility] pH, UA 5.5 5 - 9 [facility] Protein, UA Negative Negative - 1999(20) ++++ mg/dL [facility] Spec Grav, UA 1.02 1 - 1.03 [facility] Urobilinogen, UA 1.0 0.2 - 12 mg/dL [facility] ALL CBC WITH AUTO DIFFon BASOPHILS ABSOLUTE AUTO 0 N [facility] Basophils/100 WBC (Bld) 0.3 % 0.2 - 2.0 % [facility] Eosinophils/100 WBC (Bld) 0.9 % 0.9 - 7.0 % [facility] Erythrocyte distribution width (RBC) [Ratio] 14.8 % 11.0 - 15.0 % [facility] Hematocrit (Bld) [Volume fraction] 36.3 % 36.0 - 48.0 % [facility] Hemoglobin (Bld) [Mass/Vol] 11.9 g/dL Low 12.0 - 16.0 g/dL [facility] IMMATURE GRANULOCYTES ABS AUTO 0.04 High [facility] Immature granulocytes/100 WBC (Bld) 0.4 % 0.0 - 0.5 % [facility] Interpretation and review of laboratory results Abnormal [facility] LYMPHOCYTES ABSOLUTE AUTO 1.6 [facility] Lymphocytes/100 WBC (Bld) 15 % Low 20.5 - 60.0 % [facility] MCH (RBC) [Entitic mass] 27.2 pg 26.7 - 34.0 pg [facility] MCHC (RBC) [Mass/Vol] 32.8 g/dL 29.9 - 35.2 g/dL [facility] MCV (RBC) [Entitic vol] 83.1 fL 81.0 - 99.0 fL [facility] MONOCYTES ABSOLUTE AUTO 0.8 N [facility] Monocytes/100 WBC (Bld) 7.4 % 1.7 - 12.0 % [facility] NEUTROPHILS ABSOLUTE AUTO 7.8 High [facility] Neutrophils/100 WBC (Bld) 76 % High 43.0 - 75.0 % [facility] Platelet mean volume (Bld) [Entitic vol] 9.2 fL Low 9.5 - 13.5 fL [facility] TBH EO # 0.1 [facility] TBH PLT 322 [facility] RBC 4.37 [facility] WBC 10.3 [facility] 07-30-2024 Glucose [Mass/Vol] 173 mg/dL High NINF - 13 0 mg/dL [facility] Interpretation and review of laboratory results Abnormal [facility]IS (HTRX)on 07-18-2024 ATOPOBIUM VAGINAE 21.066 Abnormal [facility] ATOPOBIUM VAGINAE Detected Abnormal [facility] BVAB 2,3 (BACTERIAL VAGINOSIS ASSOCIATED BACTERIA 2, 3); MOBILUNCUS SPP 20.228 Abnormal [facility] BVAB 2,3 (BACTERIAL VAGINOSIS ASSOCIATED BACTERIA 2, 3); MOBILUNCUS SPP Detected Abnormal [facility] BLANCA ALBICANS, PARAPSILOSIS, TROPICALIS 0 [facility] BLANCA ALBICANS, PARAPSILOSIS, TROPICALIS Not detected [facility] BLANCA GLABRATA 0 [facility] BLANCA GLABRATA Not detected [facility] BLANCA KRUSEI 0 [facility] BLANCA KRUSEI Not detected [facility] CHLAMYDIA TRACHOMATIS 0 [facility] CHLAMYDIA TRACHOMATIS Not detected N [facility] ERMB, C; MEFA 26.225 Abnormal [facility] ERMB, C; MEFA Detected Abnormal [facility] GARDNERELLA VAGINALIS 21.744 Abnormal [facility] S [facility] GARDNERELLA VAGINALIS Detected Abnormal [facility] Healthcare Interpretation and review of laboratory results Abnormal [facility] MEGASPHAERA (TYPES 1, 2) 0 [facility] Healthcare MEGASPHAERA (TYPES 1, 2) Not detected [facility] MYCOPLASMA GENITALIUM 0 [facility] MYCOPLASMA GENITALIUM Not detected [facility] NEISSERIA GONORRHOEAE 0 [facility] NEISSERIA GONORRHOEAE Not detected N [facility] TET B, TET M 24.757 Abnormal [facility] TET B, TET M Detected Abnormal [facility] TRICHOMONAS VAGINALIS 0 [facility] TRICHOMONAS VAGINALIS Not detected N [facility] Urinalysis macro (dipstick) panel (U)on 07-17-2024 Bilirubin, UA Negative Negative - 4(70) +++ mg/dL [facility] Blood, UA Negative Negative - 50 Roberto/mcL [facility] Clarity, UA Clear [facility] Color, UA Yellow [facility] Glucose, UA Negative Negative - 1999(110) ++++ mg/dL [facility] Interpretation and review of laboratory results Abnormal [facility] Ketones, UA Positive Negative - 160(16) ++++ mg/dL [facility] Leukocytes, UA Trace Negative - 500+++ Christian/mcL [facility] Nitrite, UA Negative Negative - Positive [facility] pH, UA 5.5 5 - 9 [facility] Protein, UA Trace Negative - 1999(20) ++++ mg/dL [facility] Spec Grav, UA 1.03 1 - 1.03 [facility] Urobilinogen, UA 0.2 0.2 - 12 mg/dL [facility] Urinalysis macro (dipstick) panel (U)on 06-17-2024 Bilirubin, UA Negative Negative - 4(70) +++ mg/dL [facility] Blood, UA Negative Negative - 50 Roberto/mcL [facility] Clarity, UA Clear [facility] Color, UA Yellow [facility] Glucose, UA Negative Negative - 2000(110) ++++ mg/dL [facility] Interpretation and review of laboratory results Abnormal [facility] Ketones, UA Negative Negative - 160(16) ++++ mg/dL [facility] Leukocytes, UA Negative Negative - 500+++ Christian/mcL [facility] Nitrite, UA Negative Negative - Positive [facility] pH, UA 6 5 - 9 [facility] Protein, UA Positive Negative - 1999(20) ++++ mg/dL [facility] Comment on above: 100 Spec Grav, UA 1.03 1 - 1.03 [facility] Urobilinogen, UA 0.2 0.2 - 12 mg/dL [facility] ALL CBC WITH AUTO DIFFon BASOPHILS ABSOLUTE AUTO 0.0 N [facility] Basophils/100 WBC (Bld) 0.4 % 0.2 - 2.0 % [facility] Eosinophils/100 WBC (Bld) 1.1 % 0.9 - 7.0 % [facility] Erythrocyte distribution width (RBC) [Ratio] 14.2 % 11.0 - 15.0 % [facility] Hematocrit (Bld) [Volume fraction] 39.3 % 36.0 - 48.0 % [facility] Hemoglobin (Bld) [Mass/Vol] 12.8 g/dL 12.0 - 16.0 g/dL [facility] IMMATURE GRANULOCYTES ABS AUTO 0.02 [facility] Immature granulocytes/100 WBC (Bld) 0.3 % 0.0 - 0.5 % [facility] Interpretation and review of laboratory results Abnormal [facility] LYMPHOCYTES ABSOLUTE AUTO 1.6 [facility] Lymphocytes/100 WBC (Bld) 21.5 % 20.5 - 60.0 % [facility] MCH (RBC) [Entitic mass] 26.8 pg 26.7 - 34.0 pg [facility] MCHC (RBC) [Mass/Vol] 32.6 g/dL 29.9 - 35.2 g/dL [facility] MCV (RBC) [Entitic vol] 82.2 fL 81.0 - 99.0 fL [facility] MONOCYTES ABSOLUTE AUTO 0.4 N [facility] Monocytes/100 WBC (Bld) 5.1 % 1.7 - 12.0 % [facility] NEUTROPHILS ABSOLUTE AUTO 5.3 [facility] Neutrophils/100 WBC (Bld) 71.6 % 43.0 - 75.0 % [facility] Platelet mean volume (Bld) [Entitic vol] 9.2 fL Low 9.5 - 13.5 fL [facility] TBH EO # 0.1 [facility] TBH PLT 324 [facility] RBC 4.78 [facility] WBC 7.4 [facility] HCG ( test) Ql (U)o n 05-16-2024 Interpretation and review of laboratory results Abnormal [facility] Preg Test, Ur Positive [facility] Cytology Cervical or vaginal smear or scraping studyOrdered By: Sheila Flowers on 04-07-2024 [facility] Coding Summary.on 04-07-2022 Coding Summary. [id number] Gh0bWw+PGhlYWQ+PE1FV BFoC91yqEKazH3KL5gQV J8GUCQJZEPBIT9ACM5ys JS5UHldK8CypnVk ArjktKEqOY70JCl8SJT5 pOvcDMjuvU0rtSCzG5z2 IdZuQT72hA63IQyrFMWt FoA0GcSqdsvcsBFm A8ycScHpvPRdXtt+PHRh YmxlIHdpZHRoPScxMDAl GeFbdRlaON7xLt3kQVWf LWNvbGxhcHNlOiBj n1amYNZbWNxaDJ2wsRds N0KmuKZ8YDEgh5y1Kf94 dHI+BGIyAEV7xBpjJIez c854GqNhf8rjAEC1 uWQrHZcpZAN1U81zz1O4 UBBcQHRzXIG1oKL6nX1h vFdhjpjvQ7TzwEIlEbA3 UEA8cZMlaC5kcXke xrtkqT5lHxh+X79QZW5Z DPIAQQ6EQcw8M2NnIfcl dHI+PX34CJNdSV87dPMb jBKlb1tkpHw9MwLg CXSgZHG7lQydDErps3Cr XOOyP93krXUki4J0FVNh wCrqfAXcQcEraIW5lU0q RQirieamp1kuoqkc Pbuvn0kpxp00xI00E95m NQajWKLtWUA0VIGuQUHc pWryfu2qfS9zOi5+IDxj i4nqz1uhjOc5NbYo DABkagUcqEehJHU1e4Wc Nk74W6SerNkgs5MzEad9 vt61mSOtg8A7sWN0YPtn JZBysA5rIRxrFtJ6 BRKxLdTihI30zRFzPZjl Tu7xrLomiHohQQ2tZULy bjdtSEWmxC8iHOUiwCIj yJmnIB1yZKPqmvyd f468AtCnLIG2DDZunOJg K0UoqL5fDxPqNODjKQSj A1PjqUGlDLfkZ904XQwi FyM2DEPznnRhD4Gz XNHesXohRwQ8g9H5Gd7H g9HvuwsfRKV9IJicTOD4 BjO7QkIhBkJ7X6RlWmw8 APSbwMzgGK5qI7Sk NLKthdxxnlovmRU1UHLt MBRnqO24lKYyLIbtAu7s i8R1w650TLGuHBIqyW71 Lm0ozTobSGEtjWJG tJ1ywxbwr6bbswugOtKq ZRWiHRn9BZb0PKLikRes WqTuCJS0WnG0QZG4rUUc hH5hmSgqjzihiE6y Oyc+E17laP9rHJK8CJU7 kblpBUGehmLqRB02BX60 F6LqCravkXCpbWS+PGRp twKvuWbiGA1nLkKy z7rss9IzZToyJ0KsCVEt FHveApm6UKHoLQL6wRA8 dK9vHFEhYUfpb2J2cVG9 W9VgamHaml4be3tg UNTrMHvsK68vcMHod4A4 MLPmyWK6HTEeaYdmFwDp cZ70Hjr+QNUdkIctn2Mu Sffxj5qcd2jtqVl5 IjMwJSIgdmFsaWduPSJ0 y9IzUh99I84pYAzlHMGy QTPiCSAoHYSljBhayw4j dA2dOt7+PGNvbCB3 gZV5dO8sQZOhAwS0ABis Q029KpQpdETcLndnd0xm n1pyhJm2WrFjXWHviwYd lNueGBD5e4LeQg12 I18iZBbkEWNuZGGjUFWz HRUpuWmniy9dbZ9zQa4+ YU7kq2cphf59fH41gBB+ BKDuQKC8lPqxEOad KRKwgM2iIIkuPoB3UGFa AoNknW26oEXiVVobSy5v pYfwxArgLH1gYPVjhyau n288SmNtp2tsXKSd fRZfOEbdNDM1D43bp9B1 CNGhLCAcDOZ7dDE7mV7l bGlnbjogbGVmdDsgdmVy hEhfECurAHjoD991 IHRvcDsnPlBhdGllbnQg PxEzUJr0Q2NiCfc3HUYc hEmtYG1xeRFjGOdrJv5o pUfujZckUP0cDTKs rneam870RhDlp4yhWRPs fYQfTIhqNDR8H31bi4V5 OYOyITHxHCZ0aMW9aY5d bGlnbjogbGVmdDsg fhOhoSlwJFgcTNbcU390 IHRvcDsnPkJpcnRoIERh vEN1BJ48UV43pXYep9V6 lYQ8C1AdCSPbxjbs gqnbeRJ0OJJkYNWpmL66 Ig7xsUibMv5gKOFlSQI4 SACuhAHhZ5WsaD0eOoIs JGAmQCGwQ5CmkORf BAxiS068QQytXgV2TYYq mhEcR5OvVPZsuXwhVjS4 h5Q1Je9ML9B9LV16AP50 qLOsm1M3pHY3V0Hr MLCbrsotcsfzoOC8JXCw OKBcvJ03Lz1vrNorXt9h OUZoQEW7FZJfnQYdM5Yj iT1jFkWsKDWpTUNp P4UwyWQhFMvyN739UEyw KrE8XHCmhyTgU9HuAWVl aDryMjN6g7D2Qv1DULa2 BM75QJ69zBMvv1Z7 oAK4O3EjVODsxhaeqsja dEI5CIYaXGErrN29Os2j mUpjOa3nKMGuQFG5KXLc kWAoC3UtgN6yGgSf JJZhFCBcZ0HeoNNeNWac X951MEcpYbZ9SYYfheMz Y6JeYPQewGnsAqD0g6Y8 Ul4DSMVsVH32TKL9 lCI2MT86KF14W4CbFtno dGFibGU+PHRhYmxlIHdp ZHRoPScxMDAlJyBzdHls TJ3vHx7oAKLmFYZp tUwhfARlGdSec9osGFHn QTraTH8pfAzjQ7SweRA4 ISLlw5x4Wy96N00nU1Er dXA+UZSdxEK6hCK8 bK2hJcDqThF7AZsrQ189 SjRhqWRiZypep3uxq5yn nDw1AmL9ONEgmnVdrBhm VTC5d0ZhBk75O74x IHdpZHRoPSIxNSUiIHZh vBftkp3twV2iAy7+PGNv hLK9rNG6jR5oHoGhMmL9 ATxbC617NsMmuZSx Gyqcs9iys5hguEz3PkAp HJJcpjKsnCvkCAW9h9Sr Jv98S8SkhTxgn3TxOoi3 cf63eJSax3V1zYO1 V8JiYESolbqmmWWvjZms XP7bLISqngqtJOOgtC0k IFVnL1v8EzIwXdI5TThd G7ExbxE8YRRtpHLx TDgbOYW8A82ek6X0DERh WSDtNVO4nKH7kO2mqMlx bjogbGVmdDsgdmVydGlj YJahTUqfB633QWYc lVajAQLlpC6aUCEmbMDj sPebOU8mHQXsnhwzPkAG QVBQLCBIQUxFWSBOSUNP ZQD7R4WbLrr4CAEz tFouOW4evTKbCDfcQb8q xMfxqUylMR3qZKAumpss HFTzpA7eYZNtpIReiWpi UH0lUOVakucnx866 WdZqZNC6YPBviYTeX3Dc lG0iQmYzQDVaONAwD1Oi wKImHTraP558MIwgIuU9 WVAnigKsD6WoZIOl lEntPkL1w3B7Sj0xUP1u OL3kLAc0GH11HU56yHQs d8M5uPM1C2FdLJUqefhy dxnaaMU1EZTuJGZp kH00jJHdUUdjFn9xt6M9 a064LHZhYCKueL64Vn3f mIwoQPQmpXLKeU7cmmbz y8qtkpomVtEkCICl QZi4POn1MHZonWgmMxDs DRP8FqQ5QWW6aLFhhG7m mLeznpmnvA2aDmz+MjQg UEXnfuL7I4TiWoc7 JTGgeZnvJM1wdTMwSQbq Om9fpDcedHmbRJ7nREMd yvswHTNfuX5eEAQdrOTv oMsyLD7bZHDugugk k899LfVeAXY2FFCmcTIc Z0AytL5vKtDrUEUfJDBe O7HgyUUeMNniB334XNop NqE1WXImzqBtY2Vp THCqqOyiPfK0r4Q3Kz3G KB5duDS2N8PlUba1CBIy iColKZ6wqWSmYSacYt8h vSpboSgqSH1yDARt unihVRMvuD3kZXShrRZx sPenYD3wILLnaynba138 JgGpJMG5WJDryNGsP6Fr iS9hIdVeIMTfEIPr A5SfhCHxYMloY498NPhi UkS0HVAiirGtE9XsLRSd nOhePsB5e7W3Om4SxMPn UJDsGB62XO77GG49 Y0ZwGmppvQVddLX+PHRh YmxlIHdpZHRoPScxMDAl DvQdyKwbQR7mCm6uNGDs LWNvbGxhcHNlOiBj g5mlVVQiNAvuLT2hbJla N0YnbBT0LVCxs5y7Pv83 P89tK4EhuWN+PGNvbCB3 mFV9hK8uTaZxMcE6 KTfzM792OjPneMVqDfii d3rzf4ofqRu7WkFjGYPj wwBysJruEOD4q0MhAb64 G41dKFkaDGFbHTSu MINgITOwmTunrv6rtV9q Ii8+JYEwqCN7lAZ5iU0m KtFoSnG1WIgbL945NfFl rZAhAcwmL36yR2Tj dXA+GPBtRiv7WTMhyWpu ZU1agDMqCXnnOg7qBXJ7 BfQbQiWxNPvkV8JiFHBn wknqegdcwGU2OYHz QXCdtE96Sj4vnKmhLu6e CHAuPAV2IEVfjSDgG6Cr bN3pGzBnRAYxQRTkF5Kv tPBwBJzrW221POvj SdV2HBCipwQoY4QxEQRn kBqaKdM5u7Y8Fa5HkXld hESbGT1iGsKoYBy1R8Wc Sak4IPHvnRdmMG3o wZZaFDgeCi3rmPtzsNnc OP1lJHRzdgieq249NkQt h4sjMMAczPExKRxxQRI1 R67yn2P7QNHoSRAw QPG7aNP1iM2sjWhbjehi bGVmdDsgdmVydGljYWwt OJboP205OZZmiNrvFsZD Ogl2D1QmIjx8BXRn pBhpOQ6nsBKbSUsoMt3f qJdwvSogXB4xKYCrwoqi y425PeBlv3nqPLPzpNKp GCgbBHB3B18kf1H0 ILCjSGQsCYX3nPZ1yA4s bGlnbjogbGVmdDsgdmVy nIrgOCkpWZidK181ODFs hWsoJd9EZts8Y5Bk Kxj2RAGqyIwdCG2amAKb AVgsHk4ntLytqHxyKP2o XYFtwhlio833IcZnm9ro IDEwcHQgVGltZXM7 W58op7A0APIvZECqQUW1 pVG6wK3tiKhipmdqgCCx dDsgdmVydGljYWwtYWxp Y800GGNgtNmmEkUp eWVyOjwvdGQ+CW49ca58 J9ZdIpcbDsu6VWSpIXR7 hXT4gW5bYUJaRFzct8V1 qDB0K1OpbeSnyu6r b2xs (more content not included)... Normal [facility] XR Ankle 3+ Views Lefton [...] Howell M.D. Transcribed by: JENN Technologist: STEVEN [facility] Consent for Treatmenton Consent for Treatment [id number] 20 [id number] #1.00CD:127 [facility] Physician Orderon 04-03-2022 Physician Order [id number] 2#1.00CD:127 [facility] XR ANKLE LT MIN 3 [...] authenticated by: MARQUIS HENSON Date: 2022-03-11 16:04 [facility] PAP ACOG PANEL 2: 21 to 29on 10-24-2021 . . Normal [facility] Comment on above: Performed By: #### [id number] #### [facility] [address] [place] [address] Dr. Aura Griffiths Age Gdln ACOG Testing - Normal [facility] Comment on above: Performed By: #### [id number] #### [facility] [address] [place] [address] Dr. Aura Griffiths DIAGNOSIS: Comment [facility] Comment on above: Result Comment: NEGA TIVE FOR INTRAEPITHELIAL LESION OR MALIGNANCY. Performed By: #### [id number] #### [facility] [address] [place] [address] Dr. Aura Griffiths Methodology: Comment Normal [facility] Comment on above: Result Comment: This liquid based ThinPrep(R) pap test was screened with the use of an image guided system. Performed By: #### [id number] #### [facility] [address] [place] [address] Dr. Aura Griffiths Note: Comment Normal [facility] Comment on above: Result Comment: The Pap smear is a screening test designed to aid in the detection of premalignant and malignant conditions of the uterine cervix. It is not a diagnostic procedure and should not be used as the sole means of detecting cervical cancer. Both false-positive and false-negative reports do occur. . Performed By: #### [id number] #### [facility] [address] [place] [address] Dr. Aura Griffiths Performed by: Comment Normal [facility] Comment on above: Result Comment: Radha Trevino, Glass Frame Fitter (ASCP) Performed By: #### [id number] #### [facility] [address] [place] [address] Dr. Aura Griffiths Reflex Criteria: Comment Normal [facility] Comment on above: Result Comment: The HPV DNA reflex criteria were not met with this specimen result therefore, no HPV testing was performed. . Performed By: #### [id number] #### [facility] [address] [place], [place] [address] Dr. Aura Griffiths Specimen adequacy: Comment Normal [facility] Comment on above: Result Comment: Sati sfactory for evaluation. Endocervical and/or squamous metaplastic cells (endocervical component) are present. Performed By: #### [id number] #### [facility] [address] [place], [place] [address] Dr. Aura Griffiths Vital Signs Date Time Vital Sign Value Performing Clinician Faci lity 04-20-2025 13:00-0400 Body mass index (BMI) [Ratio] 43.79 kg/m2 Karla Burns PA Work Phone: [facility] 04-20-2025 13:00-0400 Body weight 115.72 kg Karla Burns PA Work Phone: [facility] 04-20-2025 13:00-0400 Diastolic blood pressure 82 mm[Hg] Karla Burns PA Work Phone: [facility] 04-20-2025 13:00-0400 Systolic blood pressure 120 mm[Hg] Karla Burns PA Work Phone: [facility] 01-20-2025 14:48-0400 Body mass index (BMI) [Ratio] 42.78 kg/m2 Karla Grant PA Work Phone: [facility] 01-20-2025 14:48-0400 Body weight 113.04 kg Karla Grant PA Work Phone: [facility] 01-20-2025 14:48-0400 Diastolic blood pressure 70 mm[Hg] Karla Grant PA Work Phone: [facility] 01-20-2025 14:48-0400 Systolic blood pressure 110 mm[Hg] Karla Burns PA Work Phone: [facility] 01-12-2025 13:12-0400 Body mass index (BMI) [Ratio] 42.67 kg/m2 Nom Nurse [facility] 01-12-2025 13:12-0400 Body weight 112.76 kg [facility] Nurse [facility] 01-12-2025 13:12-0400 Diastolic blood pressure 86 mm[Hg] [facility] Nurse [facility] 01-12-2025 13:12-0400 Systolic blood pressure 128 mm[Hg] Nom Nurse [facility] 12-22-2024 15:02-0400 Body mass index (BMI) [Ratio] 42.4 kg/m2 Carrie Ora DO Work Phone: [facility] 12-22-2024 15:02-0400 Body weight 112.04 kg Carrie Ora DO Work Phone: [facility] 12-22-2024 15:02-0400 Diastolic blood pressure 80 mm[Hg] Carrie Ora DO Work Phone: [facility] 12-22-2024 15:02-0400 Systolic blood pressure 140 mm[Hg] Carrie Ora DO Work Phone: [facility] 11-26-2024 15:16-0400 Body mass index (BMI) [Ratio] 45.68 kg/m2 Carrie Ora DO Work Phone: [facility] 11-26-2024 15:16-0400 Body weight 120.71 kg Carrie Ora DO Work Phone: [facility] 11-26-2024 15:16-0400 Diastolic blood pressure 78 mm[Hg] Carrie Ora DO Work Phone: [facility] 11-26-2024 15:16-0400 Systolic blood pressure 124 mm[Hg] Carrie Ora DO Work Phone: [facility] 11-13-2024 10:40-0400 Body mass index (BMI) [Ratio] 46.17 kg/m2 Karla OSPINA Work Phone: [facility] 11-13-2024 10:40-0400 Body weight 122.02 kg Karla OSPINA Work Phone: [facility] 11-13-2024 10:40-0400 Diastolic blood pressure 80 mm[Hg] Karla Masury PA Work Phone: [facility] 11-13-2024 10:40-0400 Systolic blood pressure 130 mm[Hg] Karla Grant PA Work Phone: [facility] 11-06-2024 14:02-0500 Body mass index (BMI) [Ratio] 45.68 kg/m2 Karla Masury PA Work Phone: [facility] 11-06-2024 14:02-0500 Body weight 120.71 kg Karla Grant PA Work Phone: [facility] 11-06-2024 14:02-0500 Diastolic blood pressure 80 mm[Hg] Karla Masury PA Work Phone: [facility] 11-06-2024 14:02-0500 Systolic blood pressure 126 mm[Hg] Karla Grant PA Work Phone: [facility] 10-23-2024 11:16-0500 Body mass index (BMI) [Ratio] 45.66 kg/m2 Karla Grant PA Work Phone: [facility] 10-23-2024 11:16-0500 Body weight 120.66 kg Karla Masury PA Work Phone: [facility] 10-23-2024 11:16-0500 Diastolic blood pressure 80 mm[Hg] Karla Grant PA Work Phone: [facility] 10-23-2024 11:16-0500 Systolic blood pressure 124 mm[Hg] Karla Grant PA Work Phone: [facility] 10-09-2024 10:43-0500 Body mass index (BMI) [Ratio] 46.17 kg/m2 Carrie Ora DO Work Phone: [facility] 10-09-2024 10:43-0500 Body weight 122.02 kg Carrie Ora DO Work Phone: [facility] 10-09-2024 10:43-0500 Diastolic blood pressure 70 mm[Hg] Carrie Ora DO Work Phone: [facility] 10-09-2024 10:43-0500 Systolic blood pressure 120 mm[Hg] Carrie Ora DO Work Phone: [facility] 09-25-2024 08:58-0500 Body mass index (BMI) [Ratio] 45.49 kg/m2 Carrie Ora DO Work Phone: [facility] 09-25-2024 08:58-0500 Body weight 120.2 kg Carrie Ora DO Work Phone: [facility] 09-25-2024 08:58-0500 Diastolic blood pressure 72 mm[Hg] Carrie Ora DO Work Phone: [facility] 09-25-2024 08:58-0500 Systolic blood pressure 122 mm[Hg] Carrie Ora DO Work Phone: [facility] 2024 09:48-0500 Body mass index (BMI) [Ratio] 44.97 kg/m2 Karla OSPINA Work Phone: [facility] 2024 09:48-0500 Body weight 118.84 kg Karla OSPINA Work Phone: [facility] 2024 09:48-0500 Diastolic blood pressure 70 mm[Hg] Karla Burns PA Work Phone: [facility] 2024 09:48-0500 Systolic blood pressure 120 mm[Hg] Karal Burns PA Work Phone: [facility] 08-14-2024 11:20-0500 Body mass index (BMI) [Ratio] 44.53 kg/m2 Carrie Ora DO Work Phone: [facility] 08-14-2024 11:20-0500 Body weight 117.66 kg Carrie Ora DO Work Phone: [facility] 08-14-2024 11:20-0500 Diastolic blood pressure 82 mm[Hg] Carrie Ora DO Work Phone: [facility] 08-14-2024 11:20-0500 Systolic blood pressure 124 mm[Hg] Carrie Ora DO Work Phone: [facility] 07-17-2024 10:48-0500 Body mass index (BMI) [Ratio] 45.28 kg/m2 Carrie Ora DO Work Phone: [facility] 07-17-2024 10:48-0500 Body weight 119.66 kg Carrie Ora DO Work Phone: [facility] 07-17-2024 10:48-0500 Diastolic blood pressure 70 mm[Hg] Carrie Ora DO Work Phone: [facility] 07-17-2024 10:48-0500 Systolic blood pressure 120 mm[Hg] Carrie Ora DO Work Phone: [facility] 06-17-2024 10:48-0400 Body mass index (BMI) [Ratio] 44.99 kg/m2 Carrie Ora DO Work Phone: [facility] 06-17-2024 10:48-0400 Body weight 118.9 kg Carrie Ora DO Work Phone: [facility] 06-17-2024 10:48-0400 Diastolic blood pressure 70 mm[Hg] Carrie Ora DO Work Phone: [facility] 06-17-2024 10:48-0400 Systolic blood pressure 120 mm[Hg] Carrie Ora DO Work Phone: [facility] 05-16-2024 09:16-0400 Body mass index (BMI) [Ratio] 46 kg/m2 [facility] Nurse [facility] 05-16-2024 09:16-0400 Body weight 121.56 kg [facility] Nurse [facility] 05-16-2024 09:16-0400 Diastolic blood pressure 70 mm[Hg] [facility] Nurse [facility] 05-16-2024 09:16-0400 Systolic blood pressure 120 mm[Hg] [facility] Nurse [facility] Healthcare Encounters Encounter Date Encounter Type Care Provider Facility Start: 04-20-2025 End: 04-20-2025 Bamboo flowsheet Karla OSPINA Work Phone: [facility] Start: 04-20-2025 End: 04-20-2025 Bamboo flowsheet Karla OSPINA Work Phone: [facility] Start: 04-20-2025 End: 04-20-2025 Patient encounter procedure Karla OSPINA Work Phone: [facility] Work Phone: Start: 04-20-2025 End: 04-20-2025 Periodic preventive med est patient 18-39 yrs Karla OSPINA Work Phone: [facility] Comment on above: Well woman exam with routine gynecological exam Start: 01-20-2025 End: 01-20-2025 Follow-up encounter Karla OSPINA Work Phone: [facility] Comment on above: 6 weeks f ollow-up; Encounter for initial prescription of injectable contraceptive Start: 01-20-2025 End: 01-20-2025 ambulatory Karla OSPINA Work Phone: [facility] Start: 01-12-2025 End: 01-12-2025 ambulatory CARRIE ORA Not Available Start: 01-12-2025 End: 01-12-2025 Office outpatient visit 5 minutes [facility] Comment on above: BP check Start: 01-12-2025 End: 01-12-2025 Patient encounter status [facility] Nurse [facility] Work Phone: Start: 01-05-2025 End: 01-05-2025 ambulatory CARRIE ORA Not Available Start: 12-29-2024 End: 12-29-2024 Clinisync Result Encounter Carrie Ora DO Work Phone: [facility] Unsolicited Start: 12-29-2024 End: 12-29-2024 Clinisync Result Encounter Carrie Ora DO Work Phone: [facility] Unsolicited Start: 12-29-2024 End: 12-29-2024 ambulatory CARRIE ORA Not Available Start: 12-22-2024 End: 12-22-2024 Patient encounter status Carrie Ora DO Work Phone: [facility] Start: 12-22-2024 End: 12-22-2024 care visit Carrie Ora DO Work Phone: [facility] Comment on above: Encounter for follow -up; Examination of blood pressure; Hypocalcemia; Anemia, unspecified type; Elevated blood pressure reading Start: 12-22-2024 End: 12-22-2024 ambulatory CARRIE ORA Not Available Start: 12-22-2024 End: 12-22-2024 Bamboo flowsheet Carrie Ora DO Work Phone: [facility] Start: 12-22-2024 End: 12-22-2024 Bamboo flowsheet Carrie Ora DO Work Phone: [facility] Start: 12-09-2024 End: 12-09-2024 Clinisync Result Encounter Carrie Ora DO Work Phone: [facility] Unsolicited Start: 12-09-2024 End: 12-09-2024 Clinisync Result Encounter Carrie Ora DO Work Phone: [facility] Unsolicited Start: 12-07-2024 End: 12-07-2024 Clinisync Result Encounter Carrie Ora DO Work Phone: [facility] Unsolicited Start: 12-07-2024 End: 12-07-2024 Clinisync Result Encounter Carrie Oar DO Work Phone: [facility] Unsolicited [...] Start: 11-13-2024 End: 11-13-2024 Bamboo flowsheet Karla Burns PA Work Phone: [facility] Start: 11-13-2024 [...] Bamboo flowsheet Carrie Ora DO Work Phone: [facility] Start: 09-25-2024 End: 09-25-2024 flow sheet Carrie Ora DO Work Phone: [facility] Comment on above: Second trimester pre gnancy; 27 weeks gestation of ; Elevated glucose tolerance test Start: 09-25-2024 End: 09-25-2024 ambulatory CARRIE ORA Not Available Start: 2024 End: 2024 Bamboo flowsheet Karla OSPINA Work Phone: [facility] Start: 2024 End: 2024 Bamboo flowsheet Karla OSPINA Work Phone: [facility] Start: 2024 End: 2024 flow sheet Karla OSPINA Work Phone: [facility] Comment on above: 25 weeks gestation o f ; Second trimester ; UTI symptoms Start: 2024 End: 2024 ambulatory KARLA BURNS Not Available Start: 08-14-2024 End: 08-14-2024 Bamboo flowsheet Carrie Ora DO Work Phone: [facility] Start: 08-14-2024 End: 08-14-2024 Bamboo flowsheet Carrie Ora DO Work Phone: [facility] Start: 08-14-2024 End: 08-14-2024 flow sheet Carrie Ora DO Work Phone: [facility] Comment on above: Second trimester pre gnancy; 21 weeks gestation of Start: 08-14-2024 End: 08-14-2024 ambulatory CARRIE ORA Not Available Start: 08-12-2024 End: 08-12-2024 Clinisync Result Encounter Carrie Ora DO Work Phone: [facility] External Department Unsolicited Start: 08-12-2024 End: 08-12-2024 [...] Date Procedure Procedure Detail Performing Clinician Start: 12-29-2024 ALL CBC WITH AUTO DIFF Carrie Ora DO Work Phone: Start: 12-22-2024 Urnls dip stick/tabl et rgnt non-auto w/o micrscp Carrie Ora DO Work Phone: Start: 12-09-2024 ALL CBC WITH AUTO DIFF Carrie Ora DO Work Phone: Start: 12-07-2024 HMHP CBC WITH PLATEL ET NO DIFFERENTIAL Carrie Ora DO Work Phone: Start: 12-04-2024 US OB BPP W NON-STRESS [...] Treatment Date Care Activity Detail Author Start: 04-26-2026 End: 04-26-2026 Patient encounter procedure 04/26/2026 10:00 AM EDT Procedure Visit [facility] [address] [place] [address] Karla Burns PA [address] [place] [address] [facility] Start: 04-20-2025 End: 04-20-2025 Patient encounter procedure [facility] Comment on above: Arrived Start: 01-20-2025 End: 01-20-2025 ambulatory 01/20/2025 2:30 PM EDT Visit [facility] [address] [address] Karla Burns, BHAVESH [address] [place] [address] [facility] Start: 12-29-2024 End: 12-29-2024 Clinical Support 12/29/2024 1:00 PM EDT Clinical Support [facility] [address] [place] [phone] [facility] Start: 12-22-2024 End: 12-22-2024 Patient encounter procedure 12/22/2024 2:30 PM EDT Office Visit [facility] [address] [place] [phone] Carrie Payan, [address] [place] [address] Arrived [facility] Comment on above: Arrived Start: 12-09-2024 End: 12-09-2024 Patient encounter procedure 12/09/2024 1:00 PM EDT Routine [facility] [address] [place] [phone] Carrie Payan, DO [address] [place] [address] [facility] Start: 12-03-2024 End: 12-03-2024 [...] AM EDT Routine [facility] [address] [place] [phone] Carrie Payan DO [address] [place] [address] [facility] Start: 11-13-2024 End: 11-13-2024 Patient encounter procedure 11/13/2024 10:10 AM EDT Office Visit [facility] [address] [place] [phone] Karla Burns PA [address] [place] [address] Arrived [facility] Comment on above: [...] AM EST Routine [facility] [address] [place] [phone] Carrie Payan, DO [address] [place] [address] [facility] Start: 10-09-2024 End: 10-09-2024 Professional / ancillary services management 10/09/2024 10:00 AM EST Ancillary Procedure [facility] [address] [place] [address] [facility] Start: 09-25-2024 End: 09-25-2025 Measurement of glucose 3 hours after glucose challenge for glucose tolerance test Glucose tolerance, 3 hours Lab Routine Elevated glucose tolerance test Expected: 09/25/2024 (Approximate), Expires: 09/25/2025 [facility] Healthcare Comment on above: Expected: 09/25/2024 (Approximate), Expires: 09/25/2025 Start: 09-25-2024 End: 09-25-2025 US for US OB follow up transabdominal approach Imaging Routine Second trimester 27 weeks gestation of Elevated glucose tolerance test Expected: 09/25/2024, Expires: 09/25/2025 [facility] Healthcare Work Phone: Comment [...] EST Ancillary Procedure [facility] [address] [place] [phone] [facility] Start: 07-17-2024 End: 09-16-2024 Alpha fetoprotein, maternal Alpha fetoprotein, maternal Lab Routine Second trimester Expected: 07/17/2024 (Approximate), Expires: 09/16/2024 [facility] Healthcare Comment on above: Expected: [...] anatomic survey Expected: 07/17/2024 (Approximate), Expires: 07/17/2025 [facility] Healthcare Comment on above: Expected: 07/17/2024 (Approximate), Expires: 07/17/2025 Start: 07-15-2024 End: 07-15-2024 Patient encounter procedure 07/15/2024 10:50 AM EST Routine [facility] [address] [place] [phone] Carrie Payan DO [address] [place] [address] [facility] Start: 06-17-2024 End: 06-17-2024 [...] Missed menses Expected: 05/16/2024 (Approximate), Expires: 05/16/2025 [facility] Healthcare Work Phone: Comment on above: Expected: 05/16/2024 (Approximate), Expires: 05/16/2025 Start: 05-16-2024 End: 05-16-2025 Drugs of abuse panel - Urine by Screen method Rapid drug screen, urine Lab Routine Encounter for supervision of normal first in first trimester , unspecified gestational age Expected: 05/16/2024 (Approximate), Expires: 05/16/2025 [facility] Healthcare Comment on above: Expected: 05/16/2024 (Approximate), Expires: 05/16/2025 Start: 05-16-2024 End: 05-16-2025 US Pelvis transvaginal US OB transvaginal Imaging Routine Missed menses Expected: 05/16/2024 (Approximate), Expires: 05/16/2025 [facility] Comment on above: Expected: 05/16/2024 (Approximate), Expires: 05/16/2025 Bacteria identified in Urine by Culture Urine culture Microbiology Routine Missed menses Ordered: 05/16/2024 [facility] Comment on above: Ordered: 05/16/2024 Bacteria identified in Urine by Culture Urine culture Microbiology Routine UTI symptoms Ordered: 2024 [facility] Healthcare Work Phone: Comment on above: Ordered: 2024 CBC W Auto Different ial panel - Blood CBC and differential Lab Routine Missed menses Ordered: 05/16/2024 [facility] Comment on above: Ordered: 05/16/2024 CBC W Auto Different ial panel - Blood CBC and differential Lab Routine Examination of blood pressure Hypocalcemia Anemia, unspecified type Elevated blood pressure reading Ordered: 12/22/2024 [facility] Comment on above: Ordered: 12/22/2024 CHLAMYDIA TRACHOMATI S (GENITO/STI) CHLAMYDIA TRACHOMATIS (GENITO/STI) Lab Routine Exposure to STD Ordered: 07/17/2024 [facility] Comment on above: Ordered: 07/17/2024 Comprehensive metabo lic 2000 panel - Serum or Plasma Comprehensive metabolic panel Lab Routine Examination of blood pressure Hypocalcemia Anemia, unspecified type Elevated blood pressure reading Ordered: 12/22/2024 [facility] Healthcare Work Phone: Comment on above: Ordered: 12/22/2024 Cytology Cervical or vaginal smear or scraping study Pap Smear Pathology and Cytology Routine Well woman exam with routine gynecological exam Ordered: 04/20/2025 [facility] Work Phone: Comment on above: Ordered: 04/20/2025 Hemoglobin A1c/Hemoglobin.total in Blood Hemoglobin A1c Lab Routine Missed menses Ordered: 05/16/2024 [facility] Comment on above: Ordered: 05/16/2024 Hepatitis B virus surface Ag [Presence] in Serum or Plasma by Immunoassay Hepatitis B surface antigen Lab Routine Missed menses Ordered: 05/16/2024 [facility] Comment on above: Ordered: 05/16/2024 Hepatitis C virus Ab [Presence] in Serum or Plasma by Immunoassay Hepatitis C antibody Lab Routine Missed menses Ordered: 05/16/2024 [facility] Comment on above: Ordered: 05/16/2024 HIV-1/HIV-2 antigen/antibody combination immunoassay HIV-1 and HIV-2 antibodies Lab Routine Missed menses Ordered: 05/16/2024 [facility] Comment on above: Ordered: 05/16/2024 Neisseria gonorrhoea e DNA [Presence] in Unspecified specimen by XIOMARA with probe detection Neisseria gonorrhea DNA probe, direct Lab Routine Exposure to STD Ordered: 07/17/2024 [facility] Comment on above: Ordered: 07/17/2024 [facility] [Presence] in Serum by RPR RPR Lab Routine Missed menses Ordered: 05/16/2024 [facility] Comment on above: Ordered: 05/16/2024 Rubella antibody, IgG Rubella an tibody, IgG Lab Routine Missed menses Ordered: 05/16/2024 [facility] Comment on above: Ordered: 05/16/2024 SURESWAB(R) ADVANCED VAGINITIS PLUS, TMA SURESWAB(R) ADVANCED VAGINITIS PLUS, TMA Pathology and Cytology Routine Vaginal discharge Ordered: 07/17/2024 [facility] Work Phone: Comment on above: Ordered: 07/17/2024 Payers Date Payer Category Payer Unknown [id number] 2023 [facility] [id number] 2023 Unknown BCBS BCBS xxxxxx [id number] 2023-Present [phone] [address] [place] [address] [id number] 2023 Unknown [id number] 1997 Unknown [id number] 2.16.840.1.314777.3.579.2.5 93 1997 Unknown [id number] 2.16.840.1.633710.3.579.2.5 93 1997 Unknown [id number] 2.16.840.1.943664.3.579.2.1 259 1997 Unknown [id number] 2.16.840.1.674068.3.579.2.1 259 1997 Unknown [id number] 2.16.840.1.265683.3.579.2.1 259 1997 Unknown [id number] 2.16.840.1.053521.3.579.2.1 259 1997 Unknown [id number] 2.16.840.1.176064.3.579.2.1 259 1997 Unknown [id number] 2.16.840.1.577896.3.579.2.1 259 1997 Unknown [id number] 2.16.840.1.048931.3.579.2.1 259 1997 Unknown [id number] 2.16.840.1.608220.3.579.2.1 259 1997 Unknown [id number] 2.16.840.1.909019.3.579.2.1 259 1997 Unknown [id number] 2.16.840.1.758669.3.579.2.1 259 1997 Unknown [id number] 2.16.840.1.003052.3.579.2.1 259 1997 Unknown [id number] 2.16.840.1.255755.3.579.2.1 259 1997 Unknown [id number] 2.16.840.1.840618.3.579.2.1 259 1997 Unknown [id number] 2.16.840.1.175584.3.579.2.1 259 1997 Unknown [id number] 2.16.840.1.471079.3.579.2.1 259 1997 Unknown [id number] 2.16.840.1.559615.3.579.2.1 259 1997 Unknown [id number] 2.16.840.1.796477.3.579.2.1 259 1997 Unknown [id number] 2.16.840.1.956941.3.579.2.1 259 1997 Unknown [id number] 2.16.840.1.585089.3.579.2.1 259 1959 Private Health Insurance [id number] 1959 Unknown [id number] Social History Date Type Detail Facility Start: 07-31-2023 Tobacco smoking stat [facility] Never smoked tobacco [facility] Start: 07-31-2023 Tobacco use and exposure Smokeless t obacco non-user [facility] Start: 05-16-2024 End: 04-20-2025 Alcoholic beverage intake Lifetime non-drinker (finding) [facility] Start: 07-31-2023 End: 05-09-2024 History of Social function [facility] Start: 07-31-2023 End: 05-09-2024 Tobacco use panel [facility] Start: 03-28-2024 [facility] Start: 1997 Sex assigned at Female [facility] Start: 01-23-2023 Gender identity Identifies as female gender (finding) [facility] Clinical Notes 05-16-2024 to 04-20-2025 BHAVESH Javier - 04/20/2025 1:00 PM BHAVESH Garcia - 01/20/2025 2:30 PM Juanito Bautista LPN - 01/12/2025 1:00 PM EDAye Dickens LPN - 12/22/2024 2:30 PM EDT Note Date & Type Note Facility 04-20-2025 History of Presen t illness Narrative Reason for Appointment: Patient ID: Kareen Forman is a 29 y.o. female who presents for Well Women Visit Patient presents today for Annual Exam. MEDICATIONS Current Outpatient Medications Medication Instructions medroxyPROGESTERone (DEPO-PROVERA) 150 mg, Intramuscular, Once ALLERGIES No Known Allergies PROBLEMS Active Ambulatory Problems Diagnosis Date Noted No Active Ambulatory Problems Resolved Ambulatory Problems Diagnosis Date Noted No Resolved Ambulatory Problems Past Medical History: Diagnosis Date Depression screening Encounter for gynecological examination (general) (routine) without abnormal findings Family planning Insulin resistance Morbid obesity with BMI of 40.0-44.9, [place] test On Depo-Provera for contraception HISTORY PAST MEDICAL HISTORY SOCIAL HISTORY Past Medical History: Diagnosis Date Depression screening Encounter for gynecological examination (general) (routine) without abnormal findings Family planning Insulin resistance Morbid obesity with BMI of 40.0-44.9, adult [place] Negative test On Depo-Provera for contraception Social History Tobacco Use Smoking status: Never Smokeless tobacco: Never Substance Use Topics Alcohol use: Never Drug use: Never FAMILY HISTORY Family History Problem Relation Name Age of Onset Other (pre diabetes) Mother Other (DM type 2) Father Hypertension Maternal Grandmother Hyperlipidemia Maternal Grandmother Hypertension [...] appearance. She is well-developed. Genitourinary: Vulva normal. Right Adnexa: not tender and no mass present. Left Adnexa: not tender and no mass present. No cervical discharge. Breasts: Breasts are soft. Right: Normal. Left: Normal. HENT: Head: Normocephalic. Nose: Nose normal. Mouth/Throat: Mouth: Mucous membranes are moist. Cardiovascular: Rate and Rhythm: Normal rate and regular rhythm. Pulmonary: Effort: Pulmonary effort is normal. Breath sounds: Normal breath sounds. Abdominal: General: Bowel sounds are normal. There is no distension. Palpations: Abdomen is soft. Tenderness: There is no abdominal tenderness. There is no guarding or rebound. Musculoskeletal: General: No swelling. Normal range of motion. Cervical back: Normal range of motion. Right lower leg: No edema. Left lower leg: No edema. Neurological: General: No focal deficit present. Mental Status: She is alert and oriented to person, place, and time. Skin: General: Skin is warm and dry. Psychiatric: Mood and Affect: Mood normal. Behavior: Behavior normal. Vitals and nursing note reviewed. Exam conducted with a auto design detailer present. Vitals: Estimated body mass index is 43.79 kg/m as calculated from the following: Height as of 01/24/23: 5' 4 . Weight as of this encounter: 255 lb 1.9 oz. BP: 120/82 No LMP recorded. Patient has had an injection. ASSESSMENT & PLAN ICD-10-CM 1. Well woman exam with routine gynecological exam Z01.419 Pap Smear Annual Exam: Patient presents today for an annual exam. Patient states she is doing well and has no complaints. Pap was obtained without difficulty. Patient did pass a clot end of February and she is on the Depo injection. Follow Up: Patient is to return in one year for annual unless needed otherwise. Documented by Shannan Peña LPN on behalf of: BHAVESH Javier documented in this encounter [facility] 01-20-2025 History of Presen t illness Narrative Reason for Appointment: Patient ID: Kareen Forman is a 29 y.o. female who presents for Follow-up Patient presents today for Post Follow Up appointment. MEDICATIONS Current Outpatient Medications Medication Instructions medroxyPROGESTERone (DEPO-PROVERA) 150 mg, Intramuscular, Once ALLERGIES No Known Allergies PROBLEMS Active Ambulatory Problems Diagnosis Date Noted No Active Ambulatory Problems Resolved Ambulatory Problems Diagnosis Date Noted No Resolved Ambulatory Problems Past Medical History: Diagnosis Date Depression screening Encounter for gynecological examination (general) (routine) without abnormal findings Family planning Insulin resistance Morbid obesity with BMI of 40.0-44.9, adult ([facility] Negative test On Depo-Provera for contraception HISTORY PAST MEDICAL HISTORY SOCIAL HISTORY Past Medical History: Diagnosis Date Depression screening Encounter for gynecological examination (general) (routine) without abnormal findings Family planning Insulin resistance Morbid obesity with BMI of 40.0-44.9, adult ([facility]) Negative test On Depo-Provera for [...] reviewed. Vitals: Estimated body mass index is 42.78 kg/m as calculated from the following: Height as of 01/24/23: 5' 4 . Weight as of this encounter: 249 lb 3.2 oz. BP: 110/70 No LMP recorded. ASSESSMENT & PLAN ICD-10-CM 1. 6 weeks follow-up Z39.2 2. Encounter for initial prescription of injectable contraceptive Z30.013 medroxyPROGESTERone (Depo-Provera) 150 MG/ML suspension prefilled syringe injection syringe Post Follow Up: Patient is doing well. Patient presents today for 6 week visit. Patient is s/p Vaginal delivery. Patient states depression but denies suicidal and homicidal ideations. All options were discussed with the patient regarding control and patient desires Depo Provera Injections. Follow Up: Patient is to return for annual unless needed otherwise. Documented by BHAVESH Javier on behalf of: BHAVESH Javier documented in this encounter [facility] 01-12-2025 History of Presen t illness Narrative Pt presents today for a BP check. Today it was 128/86. Per Dr. Payan, I advised pt that she could discontinue her labetalol and that we would check BP at her 6 week visit. PVU. documented in this encounter [facility] 12-22-2024 History of Presen t illness Narrative Reason for Appointment: Patient ID: Kareen Forman is a 29 y.o. female who presents for ER Follow-up (Pt was seen on 12/11/2024 for elevated b/p 160/100. Pt delivered on 12/08/2024.) Patient presents today for Consult appointment. MEDICATIONS Current Outpatient Medications Medication Instructions aspirin 81 mg, Oral, Daily labetalol (Normodyne) 200 MG tablet 1 tablet, 2 times daily Preparation H 1 % cream Topical, 2 [...] Morbid obesity with BMI of 40.0-44.9, adult ([facility]) Negative test On Depo-Provera for contraception HISTORY PAST MEDICAL HISTORY SOCIAL HISTORY Past Medical History: Diagnosis Date Depression screening Encounter for gynecological examination (general) (routine) without abnormal findings Family planning Insulin resistance Morbid obesity with BMI of 40.0-44.9, adult ([facility]) Negative test On Depo-Provera for [...] nursing note reviewed. Exam conducted with a auto design detailer present. Vitals: Estimated body mass index is 42.4 kg/m as calculated from the following: Height as of 01/24/23: 5' 4 . Weight as of this encounter: 247 lb. BP: 140/80 No LMP recorded. ASSESSMENT & PLAN ICD-10-CM 1. Encounter for follow-up Z09 POCT urinalysis dipstick manually resulted 2. Examination of blood pressure Z01.30 POCT urinalysis dipstick manually resulted Patient presents for ER follow up due to elevated BP after delivery. Patient is currently on Labetalol twice daily & is to return to clinic weekly for nurse visit BP check. Patient is to continue current dosage of Labetalol. Patient to RTC for nurse visit and follow up as well routinely for post . Documented by Kathleen Dickens LPN on behalf of: Carrie Payan DO documented in this encounter [facility] 11-26-2024 History of Presen t illness Narrative [...] Morbid obesity with BMI of 40.0-44.9, adult ([facility]) Negative test On Depo-Provera for contraception HISTORY PAST MEDICAL HISTORY SOCIAL HISTORY Past Medical History: Diagnosis Date Depression screening Encounter for gynecological examination (general) (routine) without abnormal findings Family planning Insulin resistance Morbid obesity with BMI of 40.0-44.9, adult ([facility]) Negative test On Depo-Provera for [...] nursing note reviewed. Exam conducted with a auto design detailer present. Vitals: Estimated body mass index is [...] DO documented in this encounter [facility] 11-13-2024 History of Presen t illness [...] Morbid obesity with BMI of 40.0-44.9, adult ([facility]) Negative test On Depo-Provera for contraception HISTORY PAST MEDICAL HISTORY SOCIAL HISTORY Past Medical History: Diagnosis Date Depression screening Encounter for gynecological examination (general) (routine) without abnormal findings Family planning Insulin resistance Morbid obesity with BMI of 40.0-44.9, adult ([facility]) Negative test On Depo-Provera for [...] nursing note reviewed. Exam conducted with a auto design detailer present. Vitals: Estimated body mass index is [...] Javier documented in this encounter [facility] 11-06-2024 History of Presen t illness [...] obesity with BMI of 40.0-44.9, adult ([facility]) Negative test On Depo-Provera for contraception HISTORY PAST MEDICAL HISTORY SOCIAL HISTORY Past Medical History: Diagnosis Date Depression screening Encounter for gynecological examination (general) (routine) without abnormal findings Family planning Insulin resistance Morbid obesity with BMI of 40.0-44.9, adult ([facility]) Negative test On Depo-Provera for [...] nursing note reviewed. Exam conducted with a auto design detailer present. Vitals: Estimated body mass index is [...] Javier documented in this encounter [facility] 10-23-2024 History of Presen t illness [...] Morbid obesity with BMI of 40.0-44.9, adult ([facility]) Negative test On Depo-Provera for contraception HISTORY PAST MEDICAL HISTORY SOCIAL HISTORY Past Medical History: Diagnosis Date Depression screening Encounter for gynecological examination (general) (routine) without abnormal findings Family planning Insulin resistance Morbid obesity with BMI of 40.0-44.9, adult ([facility]) Negative test On Depo-Provera for [...] Javier documented in this encounter [facility] 10-09-2024 History of Presen t illness [...] obesity with BMI of 40.0-44.9, adult ([facility]) Negative test On Depo-Provera for [...] nursing note reviewed. Exam conducted with a auto design detailer present. Vitals: Estimated body mass index is [...] DO documented in this encounter [facility] 09-25-2024 History of Presen t illness [...] Morbid obesity with BMI of 40.0-44.9, adult ([facility]) Negative test On Depo-Provera for contraception HISTORY PAST MEDICAL HISTORY SOCIAL HISTORY Past Medical History: Diagnosis Date Depression screening Encounter for gynecological examination (general) (routine) without abnormal findings Family planning Insulin resistance Morbid obesity with BMI of 40.0-44.9, adult ([facility]) Negative test On Depo-Provera for [...] nursing note reviewed. Exam conducted with a auto design detailer present. Vitals: Estimated body mass index is [...] DO documented in this encounter [facility] 2024 History of Presen t illness [...] Morbid obesity with BMI of 40.0-44.9, adult ([facility]) Negative test On Depo-Provera for contraception HISTORY PAST MEDICAL HISTORY SOCIAL HISTORY Past Medical History: Diagnosis Date Depression screening Encounter for gynecological examination (general) (routine) without abnormal findings Family planning Insulin resistance Morbid obesity with BMI of 40.0-44.9, adult ([facility]) Negative test On Depo-Provera for [...] nursing note reviewed. Exam conducted with a auto design detailer present. Vitals: Estimated body mass index is [...] Javier documented in this encounter [facility] 08-14-2024 History of Presen t illness [...] Morbid obesity with BMI of 40.0-44.9, adult ([facility]) Negative test On Depo-Provera for contraception HISTORY PAST MEDICAL HISTORY SOCIAL HISTORY Past Medical History: Diagnosis Date Depression screening Encounter for gynecological examination (general) (routine) without abnormal findings Family planning Insulin resistance Morbid obesity with BMI of 40.0-44.9, adult ([facility]) Negative test On Depo-Provera for [...] nursing note reviewed. Exam conducted with a auto design detailer present. Vitals: Estimated body mass index is [...] DO documented in this encounter [facility] 07-17-2024 History of Presen t illness [...] Morbid obesity with BMI of 40.0-44.9, adult ([facility]) Negative test On Depo-Provera for contraception HISTORY PAST MEDICAL HISTORY SOCIAL HISTORY Past Medical History: Diagnosis Date Depression screening Encounter for gynecological examination (general) (routine) without abnormal findings Family planning Insulin resistance Morbid obesity with BMI of 40.0-44.9, adult ([facility]) Negative test On Depo-Provera for [...] nursing note reviewed. Exam conducted with a auto design detailer present. Vitals: Estimated body mass index is [...] DO documented in this encounter [facility] 06-17-2024 History of Presen t illness [...] Morbid obesity with BMI of 40.0-44.9, adult ([facility]) Negative test On Depo-Provera for contraception HISTORY PAST MEDICAL HISTORY SOCIAL HISTORY Past Medical History: Diagnosis Date Depression screening Encounter for gynecological examination (general) (routine) without abnormal findings Family planning Insulin resistance Morbid obesity with BMI of 40.0-44.9, adult ([facility]) Negative test On Depo-Provera for [...] nursing note reviewed. Exam conducted with a auto design detailer present. Vitals: Estimated body mass index is [...] undercooked meat, and stay away from [facility]. Patient has been consulted regarding any further [...] PA-C documented in this encounter [facility] 05-16-2024 History of Presen t illness [...] Morbid obesity with BMI of 40.0-44.9, adult ([facility]) Negative test On Depo-Provera for [...] undercooked meat, and stay away from [facility]. Patient has also been advised to not [...] Shannan Peña LPN documented in this encounter [facility] Healthcare Evaluation note Diagnosis [...] [facility] Diagnosis Encounter for follow-up Examination of blood pressure Other specified examination Hypocalcemia Anemia, unspecified type Elevated blood pressure reading Elevated blood pressure reading without diagnosis of hypertension [facility] Diagnosis BP check Screening for hypertension [facility] Diagnosis 6 weeks follow-up Encounter for initial prescription of injectable contraceptive [facility] Diagnosis Well woman exam with routine gynecological exam Routine gynecological examination documented in this encounter [facility] Summary Purpose Family History No Family History Records FoundNo Family History Records FoundNo Family History Records Found Advance Directives No Advanced Directives Records FoundNo Advanced Directives Records FoundNo Advanced Directives Records Found Additional Source Comments INFORMATION SOURCE (unrecogn ized section and content) DATE CREATED AUTHOR 04/05/2022 [facility] DATE CREATED AUTHOR AUTHOR'S ORGANIZ ATION 04/08/2022 [facility] DATE CREATED AUTHOR AUTHOR'S ORGANIZ ATION 01/22/2025 [facility] Care Teams (unrecognized sec tion and content) Spring Former Machine Relationship Specialty Start Date End Date Karla Ortega MD [address] [place] [phone] PCP - General Family Medicine 01/24/23 Spring Former Machine Relationship Specialty Start Date End Date Karla Ortega MD [address] [place] [phone] PCP - General Family Medicine 01/24/23 Spring Former Machine Relationship Specialty Start Date End Date Karla Ortega MD [address] [place] [phone] PCP - General Family Medicine 01/24/23 Spring Former Machine Relationship Specialty Start Date End Date Karla Ortega MD [address] [place] [phone] PCP - General Family Medicine 01/24/23 Spring Former Machine Relationship Specialty Start Date End Date Karla Ortega MD [address] [place] [address] PCP - General Family Medicine 01/24/23 Spring Former Machine Relationship Specialty Start Date End Date Karla Ortega MD [address] [place] [address] PCP - General Family Medicine 01/24/23 Spring Former Machine Relationship Specialty Start Date End Date Karla Ortega MD [address] [place] [address] PCP - General Family Medicine 01/24/23 Spring Former Machine Relationship Specialty Start Date End Date Karla Ortega MD [address] [place] [address] PCP - General Family Medicine 01/24/23 Spring Former Machine Relationship Specialty Start Date End Date Karla Ortega MD [address] [place] [address] PCP - General Family Medicine 01/24/23 Spring Former Machine Relationship Specialty Start Date End Date Karla Ortega MD [address] [place] [phone] PCP - General Family Medicine 01/24/23 Spring Former Machine Relationship Specialty Start Date End Date Karla Ortega MD [address] [place] [phone] PCP - General Family Medicine 01/24/23 Spring Former Machine Relationship Specialty Start Date End Date Karla Ortega MD [address] [place] [address] PCP - [facility] Medicine 01/24/23 Spring Former Machine Relationship Specialty Start Date End Date Ortega Karla [address] [place] [address] PCP - [facility] 01/24/23 Spring Former Machine Relationship Specialty Start Date End Date OrtegaKarla [address] [place] [address] PCP - [facility] 01/24/23 Spring Former Machine Relationship Specialty Start Date End Date Karla Ortega DO [address] [place] [address] PCP - [facility] 01/24/23 Spring Former Machine Relationship Specialty Start Date End Date Karla Ortega DO [address] [place] [address] PCP - [facility] 01/24/23 Spring Former Machine Relationship Specialty Start Date End Date Karla Ortega DO [address] [facility] [place] [place] [address] PCP - [facility] 01/24/23 Reason for Visit (unrecogniz ed section and content) Reason Comments Routine Visit Reason Comments Amenorrhea Reason Comments vaginal irritation Routine Visit Reason Comments ER Follow-up Pt was seen on 12/11 for elevated b/p 160/100. Pt delivered on 12/08/2024. Reason Comments Blood Pressure Check Reason Comments Follow-up Reason Comments Well Women Visit FOR RECORDS PERTAINING TO PATIENTS WHO [...] BE BASED ON THE PRIMARY CLINICAL RECORDS. [facility] [employer] [facility]. provides no warranty or guarantee of the accuracy or completeness of information in this document.
[2025-04-22 10:09] LABS: Age Gdln ACOG Testing Note (.); IGP, rfx Aptima HPV ASCU Note (.)
== END 2025-04-20 15:26 | disposition home or self-care (01) ==
LOC: LAB 15:25
PROVIDERS: Visit Provider Physician Assistant
DX: Z01.419 Encounter for gynecological examination (general) (routine) without abnormal findings (principal)
CPT/HCPCS: 88175

== ENCOUNTER 2025-06-01 17:52 | Emergency (ER) | payer BC, SELFPAY ==
--- OUTSIDE RECORDS SUMMARY | 2025-04-20 12:45 | XMS_ITS ---
Author Name Auto Generated Organization OHIP Support Name Relationship Address Phone DICKSON, GORDY Next of Kin [address] [place] [address] + DICKSON, GORDY Next of Kin [address] [place] [address] + FORMAN, GORDY Next of Kin [address] [place] [address] + FORMAN, GORDY Next of Kin [address] [place] [address] + FORMAN, GORDY Next of Kin [address] [place] [address] + FORMAN, GORDY Next of Kin [address] [place] [address] + FORMAN, GORDY Next of Kin [address] [place] [address] + FORMAN, GORDY Next of Kin [address] [place] [address] + FORMAN, GORDY Next of Kin [address] [place] [address] + FORMAN, GORDY Next of Kin [address] [place] [address] + FORMAN, GORDY Next of Kin [address] [place] [address] + FORMAN, GORDY Next of Kin [address] [place] [address] + FORMAN, GORDY Next of Kin [address] [place] [address] + FORMAN, GORDY Next of Kin [address] [place] [address] + FORMAN, GORDY Next of Kin [address] [place] [address] + GORDY FORMAN Next of Jey [address] [place] [address] + GORDY FORMAN Next of Jey [address] [place] [address] + GORDY FORMAN Next of Jey [address] [place] [address] + Care Team Providers Care Marine Machinist Name Role Phone ARNULFO, CARRIE Attending Unavailable ARNULFO, CARRIE Attending Unavailable GRANT, JIMMY Attending Unavailable GRANT, JIMMY Attending Unavailable GRANT, JIMMY Attending Unavailable ARNULFO, CARRIE Attending Unavailable ARNULFO, CARRIE Attending Unavailable ARNULFO, CARRIE Attending Unavailable GRANT, JIMMY Attending Unavailable GRANT, JIMMY Attending Unavailable ARNULFO, CARRIE Attending Unavailable ARNULFO, CARRIE Attending Unavailable ARNULFO, CARRIE Attending Unavailable GRANT, JIMMY Attending Unavailable PROBLEMS No Problem Records Found PROCEDURES No Procedure Records Found RESULTS US OB FOLLOW UP TRANSABDOMINAL APPROACH Observed: 10/09/2024 9:50 AM Status: F Source: [facility] EPIC Order Comment: US OB SCAN FO R GROWTH Estimated Date of Delivery: 12/19/24 Gestational Age as of 09/25/2024: 27w6d EXAM: US OB FOLLOW UP TRANSA BDOMINAL APPROACH HISTORY: Elevated glucose test. TECHNIQUE: Two-dimensional [...] II, MD, PHD at 10-Oct-2024 07:43:20 AM [facility] ALLERGIES No Allergies Records Found ENCOUNTERS ADMIT/DISCHARGE ACCOUNT NUMBER ADMITTING ENCOUNTER CLASS LOCATION SOURCE 04/20/2025/ 5 [id number] Ambulatory Building:[facility] 01/20/2025/ 5 [id number] Ambulatory Building:[facility] 01/12/2025/ 5 [id number] Ambulatory Building:[facility] 01/05/2025/ 5 [id number] Ambulatory Building:N[facility] 12/29/2024/ 5 [id number] Ambulatory Building:[facility] 12/22/2024/ 5 [id number] Ambulatory Building:[facility] 12/03/2024/ 5 [id number] Ambulatory Building:[facility] 11/26/2024/ 5 [id number] Ambulatory Building:[facility] 11/13/2024/ 5 [id number] Ambulatory Building:[facility] 11/06/2024/ 5 [id number] Ambulatory Building:[facility] 10/23/2024/ 5 [id number] Ambulatory Building:[facility] 10/09/2024/ 5 [id number] Ambulatory Building:[facility] 10/09/2024/ 5 [id number] Ambulatory Building:N[facility] 09/25/2024/ 5 [id number] Ambulatory Building:[facility] 09/11/2024/ 5 [id number] Ambulatory Building:[facility] 08/14/2024/ 4 [id number] Ambulatory Building:[facility] 07/17/2024/ 4 [id number] Ambulatory Building:[facility] 06/17/2024/ 4 [id number] Ambulatory Building:[facility] EPIC PAYERS ENCOUNTER GUARANTOR PAYER SUBSCRIBER SOURCE 04/20/2025 KAREEN GUB: [address] [address]Zmf: (HP) Primary Insurance:BCBSPo licy Number: [id number] ffective Date:2024-09-03 KAREEN GUB: [id number] [address] [address] [facility] 01/20/2025 KAREEN GUB: [address] [address]Beg: (HP) Primary Insurance:BCBSPo licy Number: [id number] ffective Date:2024-09-03 KAREEN GUB: [id number] [address] [address] [facility] 01/12/2025 KAREEN GUB: [address] [address]Qyb: (HP) Primary Insurance:BCBSPo licy Number: [id number] ffective Date:2024-09-03 KAREEN GUB: [id number] [address] [address] [facility] 01/05/2025 KAREEN GUB: [address] [address]Nlh: (HP) Primary Insurance:BCBSPo licy Number: [id number] ffective Date:2024-09-03 KAREEN GUB: [id number] O [address] [address] [facility] EPIC 12/29/2024 KAREEN FORMANDOB: 1995 [address] [place] [address]Uya: (HP) Primary Insurance:BCBSPo licy Number: [id number] ffective Date:2024-09-03 KAREEN GUB: [id number] O [address] [address] [facility] EPIC 12/22/2024 KAREEN GUB: [address] [address]Gao: (HP) Primary Insurance:BCBSPo licy Number: [id number] ffective Date:2024-09-03 KAREEN GUB: [id number] O [address] [address] [facility] EPIC 12/03/2024 KAREEN GUB: [address] [address]Cjw: (HP) Primary Insurance:BCBSPo licy Number: [id number] ffective Date:2024-09-03 KAREEN GUB: [id number] O [address] [address] [facility] EP[facility] 11/26/2024 KAREEN FORMANDOB: [address] [address]Yrt: (HP) Primary Insurance:BCBSPo licy Number: [id number] ffective Date:2024-09-03 KAREEN GUB: [id number] O [address] [address] [facility] EP[facility] 11/13/2024 KAREEN FORMANDOB: 1995 [address] [place] [address]Vje: (HP) Primary Insurance:BCBSPo licy Number: [id number] ffective Date:2024-09-03 KAREEN FORMANDOB: [id number] O [address] [place] [address] [facility] EPIC 11/06/2024 KAREEN FORMANDOB: [address] [address]Vrj: (HP) Primary Insurance:BCBSPo licy Number: [id number] ffective Date:2024-09-03 KAREEN FORMANDOB: [id number] O [address] [address] [facility] EPIC 10/23/2024 KAREEN GUB: [address] [address]Jmq: (HP) Primary Insurance:BCBSPo licy Number: [id number] ffective Date:2024-09-03 KAREEN GUB: [id number] O [address] [address] [facility] EPIC 10/09/2024 KAREEN FORMANDOB: [address] [address]Tnq: (HP) Primary Insurance:BCBSPo licy Number: [id number] ffective Date:2024-09-03 KAREEN FORMANDOB: [id number] O [address] [address] [facility] EPIC 10/09/2024 KAREEN FORMANDOB: [address] [address]Ecr: (HP) Primary Insurance:BCBSPo licy Number: [id number] ffective Date:2024-09-03 KAREEN GUB: [id number] O [address] [place] [address] [facility] EPIC 09/25/2024 KAREEN FORMANDOB: [address] [address]Ygg: (HP) Primary Insurance:BCBSPo licy Number: [id number] ffective Date:2024-09-03 KAREEN GUB: [id number] O [address] [place] [address] [facility] EPIC 2024 KAREEN GUB: [address] [address]Qng: (HP) Primary Insurance:BCBSPo licy Number: [id number] ffective Date:2024-09-03 KAREEN GUB: [id number] O [address] [address] [facility] EPIC 08/14/2024 KAREEN GUB: [address] [address]Yex: (HP) Primary Insurance:BCBSPo licy Number: [id number] ctive Date:2023-09-03 KAREEN GUB: [id number] O [address] [address] [facility] EPIC 07/17/2024 KAREEN GUB: [address] [address]Uye: (HP) Primary Insurance:BCBSPo licy Number: [id number] ctive Date:2023-09-03 KAREEN GUB: [id number] O [address] [address] [facility] EPIC 06/17/2024 KAREEN GUB: [address] [address]Kis: (HP) Primary Insurance:Starriser licy Number: [id number] ctive Date:2023-09-03 KAREEN GEORGE: [id number] O [address] [address] [facility] EPIC
[2025-06-01 18:10] VITALS: BP 154/89; PULSE 93; TEMP 36.4; O2SAT 100; BMI 43.8
--- OUTSIDE RECORDS SUMMARY | 2025-06-01 18:17 | XMS_ITS | Encounter Summary ---
Author Organization [facility] Address [address] [place] [address] Care Team Providers Care Motion Study Analyst Name Role Phone Karla Ortega DO Primary Care Provider [phone] Encounter Details Date Type Department Care Team (Late st Contact Info) Description 12/11/2024 Abstract [facility] [address] [place] [address] Marty Payan DO [address] Lila [place], [place] [address] Social History Tobacco Use Types Packs/Day Years Used Date Smoking Tobacco: Never Smokeless Tobacco: Never Alcohol Use Standard Drinks/Week Comments Never 0 (1 standard drink = 0.6 oz pur e alcohol) Comments Yes Sex and Gender Information Value Date Recorded Sex Assigned at Female 01/23/2023 12:58 PM EDT Legal Sex Female 7:05 PM EDT Gender Identity Female 01/23/2023 12:58 PM EDT Sexual Orientation Not on file documented as of this encounter Plan of Treatment Upcoming Encounters Date Type Department Care Team (Late st Contact Info) Description 04/26/2026 10:00 AM EDT Procedure Visit [facility] [address] [place] [address] Karla Marin PA [address] [place], [facility] documented as of this encounter Visit Diagnoses Not on filedocumented in this encounter Care Teams Motion Study Analyst Relationship Specialty Start Date End Date Karla Ortega DO [address] [facility] [place] [address] PCP - General Family Medicine 01/24/23 documented as of this encounter
--- OUTSIDE RECORDS SUMMARY | 2025-06-01 18:17 | XMS_ITS | Encounter Summary ---
Author Organization [facility] Address [address] [place] [address] Care Team Providers Care Babysitter Name Role Phone Karla Ortega DO Primary Care Provider [phone] Encounter Details Date Type Department Care Team (Late st Contact Info) Description 02/04/2025 Abstract [facility] [address] [facility] [address] Marty Payan DO [address] L[place], [id number] Social History Tobacco Use Types Packs/Day Years Used Date Smoking Tobacco: Never Smokeless Tobacco: Never Alcohol Use Standard Drinks/Week Comments Never 0 (1 standard drink = 0.6 oz pur e alcohol) Comments No Sex and Gender Information Value Date Recorded Sex Assigned at Female 01/23/2023 12:58 PM EDT Legal Sex Female 7:05 PM EDT Gender Identity Female 01/23/2023 12:58 PM EDT Sexual Orientation Not on file documented as of this encounter Plan of Treatment Upcoming Encounters Date Type Department Care Team (Late st Contact Info) Description 04/26/2026 10:00 AM EDT Procedure Visit PATRICIO [facility]ILLARREAL [address] [facility] [address] Karla Marin PA [address] [place], [id number] documented as of this encounter Visit Diagnoses Not on filedocumented in this encounter Care Teams Babysitter Relationship Specialty Start Date End Date Karla Ortega DO [address] [facility] [place] [address] PCP - General Family Medicine 01/24/23 documented as of this encounter
--- OUTSIDE RECORDS SUMMARY | 2025-06-01 18:17 | XMS_ITS | Encounter Summary ---
Author Organization [facility] Address [address] [place] [address] Care Team Providers Care Fire Extinguisher Mechanic Name Role Phone Karla Clifford DO Primary Care Provider [phone] Encounter Details Date Type Department Care Team (Late st Contact Info) Description 08/07/2024 Clinisync Result Encounter [facility] External Department Unsolicited Carrie Payan DO [address] [place], [place] [address] Social History Tobacco Use Types Packs/Day Years [...] Description 04/26/2026 10:00 AM EDT Procedure Visit [facility] [address] [address] Karla Marin PA [address] [place] [address] documented as of this encounter Procedures Procedure Name Priority Date/Time Associated Diagnosis Comments US OB ANATOMY 08/07/2024 10:03 AM EST documented in this encounter Results * US OB ANATOMY (08/07/2024 10:03 AM EST) Anatomical Region Laterality Modality Other 08/07/2024 10:0 3 AM EST Narrative 08/07/2024 10:06 [place] [address] Ultrasound Report Signed Patient: KAREEN FORMAN MR#: [id number] : 1995 Acct:[id number] Age/Sex: 28 / F ADM Date: 08/07/24 Loc: [facility] Attending Dr: Carrie Payan D.O. Ordering Physician: Carrie Payan D.O. Date of Service: 08/07/24 Procedure(s): US OB anatomy Accession Number(s): [id number] cc: KARLA CLIFFORD; Carrie Payan D.O. [place] [id number] Patient Name: KAREEN FORMAN MRN: [id number] date: 1995 Sex: F Assigned Patient Location: [facility] Current Patient Location: [facility] Accession/Order Number: [id number] Exam Date: 08/07/2024 08:35 Report Date: 08/07/2024 10:03 At the request of: CARRIE PAYAN Procedure: US OB anatomy EXAMINATION: US OB anatomy, US OB cervical length HISTORY: ANATOMY COMPARISON: No relevant comparison available. TECHNIQUE: Transabdominal sonographic examination was performed for obstetrical and evaluation. FINDINGS: Number: 1 Heart Rate: 154 bpm H.B. /min Amniotic Fluid Volume: Subjectively normal position: Variable Placental Location: ANTERIOR, the placental edge is 6.8 cm from the internal cervical os Cervix Length: 4.54 cm , closed Normal anatomy: Lateral ventricles, cerebellum, posterior fossa, nose, lips, orbits, four-chamber heart, RVOT, LVOT, diaphragm, stomach, kidneys, abdominal cord insertion, bladder, umbilical arteries, three-vessel cord, spine, extremities BIOMETRY: BPD: 4.82 cm; 20 weeks 4 days; 37.20 % HC: 18.43 cm; 20 weeks 6 days 37.60 % AC: 17.13 cm; 22 weeks 1 day; 81.30 % FL: 3.74 cm; 21 weeks 6 days; 77.10 % EFW:417.28 g; 91 %, 1 lb. 0 oz. FL/AC: 21.83 FL/BPD: 77.59 HC/AC: 1.08 GESTATIONAL AGE: Age by EDC: 20 weeks 6 days KASSIDY by EDC: 2024-12-19 Age by current US: 21 weeks 3 days KASSIDY by current US: 2024-12-15 US/US OB anatomy IMPRESSION: Normal anatomy scan *Reference: [employer] Practice Guideline for the performance of Obstetric Ultrasound Examinations, June 03, 2007. Electronically authenticated by: ASHLEY AHZEL Date: 08/07/2024 10:03 Dictated By: Ashley Hazel M.D. Signed By: 08/07/24 1006 DD/ 1003 TD/TT: Sql Analyst: Procedure Note Radiology, Radiologist, MD - 08/07/2024 [place] [address] Ultrasound Report Signed Patient: KAREEN FORMAN NMR#: [id number] : 1995Acct:[id number] Age/Sex: 28 / FADM Date: 08/07/24 Loc: [facility] Attending Dr: Carrie Payan D.O. Ordering Physician: Carrie Payan D.O. Date of Service: 08/07/24 Procedure(s): US OB anatomy Accession Number(s): [id number] cc: KARLA CLIFFORD; Carrie Payan D.O. The [place] [address] Patient Name: KAREEN FORMAN MRN: [id number] date: 1995 Sex: F Assigned [facility] Current Patient [facility]: [facility] Accession/Order Number: [id number] Exam Date: 08/07/2024 08:35 Report Date: 08/07/2024 10:03 At the request of: CARRIE PAYNA Procedure: US OB anatomy EXAMINATION: US OB anatomy, US OB cervical length HISTORY: ANATOMY COMPARISON: No relevant comparison available. TECHNIQUE: Transabdominal sonographic examination was performed for obstetrical and evaluation. FINDINGS: Number: 1 Heart Rate: 154 bpm H.B. /min Amniotic Fluid Volume: Subjectively normal position: Variable Placental Location: ANTERIOR, the placental edge is 6.8 cm from theinternal cervical os Cervix Length: 4.54 cm , closed Normal anatomy: Lateral ventricles, cerebellum, posterior fossa, nose,lips, orbits, four-chamber heart, RVOT, LVOT, diaphragm, stomach, kidneys,abdominal cord insertion, bladder, umbilical arteries, three-vessel cord, spine, extremities BIOMETRY: BPD: 4.82 cm; 20 weeks 4 days; 37.20 % HC: 18.43 cm; 20 weeks 6 days 37.60 % AC: 17.13 cm; 22 weeks 1 day; 81.30 % FL: 3.74 cm; 21 weeks 6 days; 77.10 % EFW:417.28 g; 91 %, 1 lb. 0 oz. FL/AC: 21.83 FL/BPD: 77.59 HC/AC: 1.08 GESTATIONAL AGE: Age by EDC: 20 weeks 6 days KASSIDY by EDC: 2024-12-19 Age by current US: 21 weeks 3 days KASSIDY by current US: 2024-12-15 US/US OB anatomy IMPRESSION: Normal anatomy scan *Reference: [employer] Practice Guideline for the performance of Obstetric Ultrasound Examinations, June 03, 2007. Electronically authenticated by: ASHLEY HAZEL Date: 08/07/2024 10:03 Dictated By: Ashley Hazel M.D. Signed By:08/07/24 1006 DD/ 1003 TD/TT: Sql Analyst: us Carrie Payan DO [facility] Final Result documented in this encounter Visit Diagnoses Not on filedocumented in this encounter Care Teams Fire Extinguisher Mechanic Relationship Specialty Start Date End Date Karla Clifford DO [address] [place] [address] PCP - General Family Medicine 01/24/23 documented as of this encounter
--- OUTSIDE RECORDS SUMMARY | 2025-06-01 18:17 | XMS_ITS | Encounter Summary ---
Author Organization [facility] Address [address] [place] [address] Care Team Providers Care Staff Attorney Name Role Phone Karla Ortega DO Primary Care Provider [phone] Encounter Details Date Type Department Care Team (Late st Contact Info) Description 07/17/2024 Abstract [facility] [address] [place] [address] Marty Payan DO [address] [place], [place] [address] Social History Tobacco Use Types Packs/Day Years [...] AM EDT Procedure Visit PATRICIO VILLARREAL [address] [place] [address] Karla Marin PA [address] [place], [facility]11 documented as of this encounter Visit Diagnoses Not on filedocumented in this encounter Care Teams Staff Attorney Relationship Specialty Start Date End Date Karla Ortega DO [address] [facility] [place] [address] PCP - General Family Medicine 01/24/23 documented as of this encounter
--- OUTSIDE RECORDS SUMMARY | 2025-06-01 18:17 | XMS_ITS | Encounter Summary ---
Author Organization [facility] Address [address] [place] [address] Care Team Providers Care Interviewing Clerk Name Role Phone Karla Ortega DO Primary Care Provider [phone] Encounter Details Date Type Department Care Team (Late st Contact Info) Description 04/24/2025 Orders Only [facility] [address] [place] [address] Evonne LottraMERCEDES allison Social History Tobacco Use Types Packs/Day Years [...] 10:00 AM EDT Procedure Visit [facility] [address] [facility] [facility] [place] [address] Karla Marin PA [address] [place], [place] [address] documented as of this encounter Procedures Procedure Name Priority Date/Time Associated Diagnosis Comments PAP SMEAR Routine 04/20/2025 12:00 AM EDT documented in this encounter Results * Pap Smear (04/20/2025 12:00 AM EDT) Swab Cervical swab / Unknown us Karla [facility] ORDERABLES Final Re sult EXTERNAL LAB documented in this encounter Visit Diagnoses Not on filedocumented in this encounter Care Teams Interviewing Clerk Relationship Specialty Start Date End Date Karla Ortega DO [address] [place] [phone] PCP - General Family Medicine 01/24/23 documented as of this encounter
--- OUTSIDE RECORDS SUMMARY | 2025-06-01 18:17 | XMS_ITS | Encounter Summary ---
Author Organization [facility] Address [address] [place] [address] Care Team Providers Care Sheet Metal Operator Name Role Phone Karla Ortega DO Primary Care Provider [phone] Encounter Details Date Type Department Care Team (Late st Contact Info) Description 05/16/2024 Abstract [facility] [address] [place] [address] Marty Payan DO [address] [place], [facility] Social History Tobacco Use Types Packs/Day Years [...] AM EDT Procedure Visit PATRICIO VILLARREAL [address] [place] [address] Karla Marin PA [address] [place], [facility] documented as of this encounter Visit Diagnoses Not on filedocumented in this encounter Care Teams Sheet Metal Operator Relationship Specialty Start Date End Date Karla Ortega DO [address] [facility] [place] [address] PCP - General Family Medicine 01/24/23 documented as of this encounter
--- OUTSIDE RECORDS SUMMARY | 2025-06-01 18:17 | XMS_ITS | Encounter Summary ---
Author Organization [facility] Address [address] [place] [address] Care Team Providers Care Poacher Wringer Operator Name Role Phone Karla Clifford DO Primary Care Provider [phone] Encounter Details Date Type Department Care Team (Late st Contact Info) Description 08/07/2024 Clinisync Result Encounter [facility] External Department Unsolicited Carrie Payan DO [address] [place] [place] [address] [place], [place] [address] Social History Tobacco Use Types Packs/Day Years [...] EDT Procedure Visit [facility] [address] [place] [address] Karla Marin PA [address] [place] [address] documented as of this encounter Procedures Procedure Name Priority Date/Time Associated Diagnosis Comments US OB CERVICAL LENGTH 08/07/2024 10:03 AM EST documented in this encounter Results * US OB CERVICAL LENGTH (08/07/2024 10:03 AM EST) Anatomical Region Laterality Modality Other 08/07/2024 10:0 3 AM EST Narrative 08/07/2024 10:06 [place] [address] Ultrasound Report Signed Patient: KAREEN FORMAN MR#: [id number] : 1995 Acct:[id number] Age/Sex: 28 / F ADM Date: 08/07/24 Loc: [facility] Attending Dr: Carrie Payan D.O. Ordering Physician: Carrie Payan D.O. Date of Service: 08/07/24 Procedure(s): US OB cervical length Accession Number(s): [id number] cc: KARLA CLIFFORD; Carrie Payan D.O. [place] [address] Patient Name: KAREEN FORMAN MRN: [id number] date: 1995 Sex: F Assigned Patient [facility] Current Patient Location: [facility] Accession/Order Number: [id number] Exam Date: 08/07/2024 08:35 Report Date: 08/07/2024 10:03 At the request of: CARRIE PAYAN Procedure: US OB cervical length EXAMINATION: US OB anatomy, US OB cervical [...] KASSIDY by current US: 2024-12-15 US/US OB cervical length IMPRESSION: Normal anatomy scan *Reference: [employer] Practice Guideline for the performance of Obstetric Ultrasound Examinations, June 03, 2007. Electronically authenticated by: ASHLEY HAZEL Date: 08/07/2024 10:03 Dictated By: Ashley Hazel M.D. Signed By: 08/07/24 1006 DD/ 1003 TD/TT: Peripheral Edp Equipment Operator: Procedure Note Radiology, Radiologist, MD - 08/07/2024 [place] [address] Ultrasound Report Signed Patient: KAREEN FORMAN NMR#: [id number] : 1995Acct:[id number] Age/Sex: 28 / FADM Date: 08/07/24 Loc: [facility] Attending Dr: Carrie Payan D.O. Ordering Physician: Carrie Payan D.O. Date of Service: 08/07/24 Procedure(s): US OB cervical length Accession Number(s): [id number] cc: KARLA CLIFFORD; Carrie Payan D.O. The [address] [address] Patient Name: KAREEN FORMAN MRN: [id number] date: 1995 Sex: F Assigned [facility] Current Patient [facility] Accession/Order Number: [id number] Exam Date: 08/07/2024 08:35 Report Date: 08/07/2024 10:03 At the request of: CARRIE PAYAN Procedure: US OB cervical length EXAMINATION: US OB anatomy, US OB cervical [...] KASSIDY by current US: 2024-12-15 US/US OB cervical length IMPRESSION: Normal anatomy scan *Reference: [employer] Practice Guideline for the performance of Obstetric Ultrasound Examinations, June 03, 2007. Electronically authenticated by: ASHLEY HAZEL Date: 08/07/2024 10:03 Dictated By: Ashley Hazel M.D. Signed By:08/07/24 1006 DD/ 1003 TD/TT: Peripheral Edp Equipment Operator: us Carrie Payan DO [facility] Final Result documented in this encounter Visit Diagnoses Not on filedocumented in this encounter Care Teams Poacher Wringer Operator Relationship Specialty Start Date End Date Karla Clifford DO [address] [place] [phone] PCP - General Family Medicine 01/24/23 documented as of this encounter
--- OUTSIDE RECORDS SUMMARY | 2025-06-01 18:17 | XMS_ITS | Encounter Summary ---
Author Organization [facility] Address [address] [place] [address] Care Team Providers Care Industrial Relations Worker Name Role Phone Karla Clifford DO Primary Care Provider [phone] Encounter Details Date Type Department Care Team (Late st Contact Info) Description 05/16/2024 Clinisync Result Encounter [facility] External Department Unsolicited Carrie Payan DO [address] [facility] [address]ila [place], [place] [address] Social History Tobacco Use Types Packs/Day Years [...] EDT Procedure Visit [facility] [address] [place] [address] Karla Marin PA [address] [place] [address] documented as of this encounter Procedures Procedure Name Priority Date/Time Associated Diagnosis Comments OB TRANSVAGINAL 05/16/2024 11 :11 AM EDT documented in this encounter Results * US OB TRANSVAGINAL (05/16/2024 11:11 AM EDT) Anatomical Region Laterality Modality Other 05/16/2024 11:1 1 AM EDT Narrative 05/16/2024 11:13 [place] [address] Ultrasound Report Signed Patient: KAREEN FORMAN MR#: [id number] : 1995 Acct:[id number] Age/Sex: 28 / F ADM Date: 05/16/24 Loc: [facility] Attending Dr: Carrie Payan D.O. Ordering Physician: Carrie Payan D.O. Date of Service: 05/16/24 Procedure(s): US OB transvaginal Accession Number(s): [id number] cc: KARLA CLIFFORD ; Carrie Payan D.O. The [place] [address] Patient Name: KAREEN FORMAN MRN: [id number] date: 1995 Sex: F Assigned Patient Location: [facility] Current Patient Location: [facility] Accession/Order Number: [id number] Exam Date: 05/16/2024 08:30 Report Date: 05/16/2024 11:11 At the request of: CARRIE PAYAN Procedure: US OB transvaginal EXAMINATION: US OB transvaginal HISTORY: MISSED MENSES COMPARISON: 07/14/2023 FINDINGS: Single intrauterine gestation Gestational sac: 3.99 cm, 9 weeks 2 days CRL: 2.91 cm, 9 weeks 5 days Yolk sac: 3.6 mm Heart rate: 170 bpm Cervix: Closed, 4.1 cm The uterus is normal, anteverted, anteflexed The right ovary is normal containing a 2.7 cm corpus luteal cyst The left ovary is not visualized Clinical age: 9 weeks 0 days Clinical KASSIDY: 12/19/2024 Ultrasound age: 9 weeks 5 days Ultrasound KASSIDY: 12/14/2024 US/US OB transvaginal IMPRESSION: Viable moreira intrauterine gestation measuring 9 weeks 5 days Electronically authenticated by: ASHLEY HAZEL Date: 05/16/2024 11:11 Dictated By: Ashley Hazel M.D. Signed By: 05/16/24 1113 DD/ 1111 TD/TT: Card Scraper: Procedure Note Radiology, Radiologist, MD - 05/16/2024 [place] [address] Ultrasound Report Signed Patient: KAREEN FORMAN NMR#: [id number] : 1995Acct:[id number] Age/Sex: 28 FADM Date: 05/16/24 Loc: [facility] Attending Dr: Carrie Payan D.O. Ordering Physician: Carrie Payan D.O. Date of Service: 05/16/24 Procedure(s): US OB transvaginal Accession Number(s): [id number] cc: KARLA CLIFFORD ; Carrie Payan D.O. The [place] [id number] Patient Name: KAREEN FORMAN MRN: [id number] date: 1995 Sex: F Assigned Patient Location: [facility] Current Patient Location: [facility] Accession/Order Number: [id number] Exam Date: 05/16/2024 08:30 Report Date: 05/16/2024 11:11 At the request of: CARRIE PAYAN Procedure: US OB transvaginal EXAMINATION: US OB transvaginal HISTORY: MISSED MENSES COMPARISON: 07/14/2023 FINDINGS: Single intrauterine gestation Gestational sac: 3.99 cm, 9 weeks 2 days CRL: 2.91 cm, 9 weeks 5 days Yolk sac: 3.6 mm Heart rate: 170 bpm Cervix: Closed, 4.1 cm The uterus is normal, anteverted, anteflexed The right ovary is normal containing a 2.7 cm corpus luteal cyst The left ovary is not visualized Clinical age: 9 weeks 0 days Clinical KASSIDY: 12/19/2024 Ultrasound age: 9 weeks 5 days Ultrasound KASSIDY: 12/14/2024 US/US OB transvaginal IMPRESSION: Viable moreira intrauterine gestation measuring 9 weeks 5 days Electronically authenticated by: ASHLEY HAZEL Date: 05/16/2024 11:11 Dictated By: Ashley Hazel M.D. Signed By:05/16/24 1113 DD/ 1111 TD/TT: Card Scraper: us Carrie Ora DO [facility] Final Result documented in this encounter Visit Diagnoses Not on filedocumented in this encounter Care Teams Industrial Relations Worker Relationship Specialty Start Date End Date Karla Clifford DO [address] [facility] [place] [address] PCP - General Family Medicine 01/24/23 documented as of this encounter
--- OUTSIDE RECORDS SUMMARY | 2025-06-01 18:17 | XMS_ITS | Encounter Summary ---
Author Organization [facility] Address [address] [place] [address] Care Team Providers Care Subeditor Name Role Phone Karla Ortega DO Primary Care Provider [phone] Encounter Details Date Type Department Care Team (Late Contact Info) Description 01/22/2023 Abstract [facility] [address] [place] [address] Marty Payan DO [address] [facility] [address] [facility] [address] [place]ila Rodriguez, [facility]11 Social History Tobacco Use Types Packs/Day Years Used Date Smoking Tobacco: Never Assessed Comments Unknown Sex and Gender Information Value Date Recorded Sex Assigned at Female 01/23/2023 12:58 PM EDT Legal Sex Female 7:05 PM EDT Gender Identity Female 01/23/2023 12:58 PM EDT Sexual Orientation Not on file COVID-19 Exposure Response Date Recorded In the last 10 days, have yo u been in contact with someone who was confirmed or suspected to have Coronavirus/COVID-19? No / Unsure 01/23/2023 1:58 PM EDT documented as of this encounter Plan of Treatment Upcoming Encounters Date Type Department Care Team (Late Contact Info) Description 04/26/2026 10:00 AM EDT Procedure Visit [facility] Michael [facility] [address] [place] [address] Karla Marin PA [address] [facility] [place] [address] documented as of this encounter Visit Diagnoses Not on filedocumented in this encounter Care Teams Subeditor Relationship Specialty Start Date End Date Karla Ortega DO [address] [place] [phone] PCP - General Family Medicine 01/24/23 documented as of this encounter
--- OUTSIDE RECORDS SUMMARY | 2025-06-01 18:17 | XMS_ITS | Encounter Summary ---
Author Organization [facility] Address [address] [place] [address] Care Team Providers Care High School Tutor Name Role Phone Karla Ortega DO Primary Care Provider [phone] Encounter Details Date Type Department Care Team (Late st Contact Info) Description 05/16/2024 Abstract [facility] [address] [place] [address] Marty Payan DO [address] [facility] [address] [facility] [address] [place], [facility]11 Social History Tobacco Use Types Packs/Day [...] AM EDT Procedure Visit PATRICIO VILLARREAL [address] [place] [place] [address] Karla Marin PA [address] [place], [facility]11 documented as of this encounter Visit Diagnoses Not on filedocumented in this encounter Care Teams High School Tutor Relationship Specialty Start Date End Date Karla Ortega DO [address] [facility] [place] [address] PCP - General Family Medicine 01/24/23 documented as of this encounter
--- OUTSIDE RECORDS SUMMARY | 2025-06-01 18:17 | XMS_ITS | Encounter Summary ---
Author Organization [facility] Address [address] [place] [address] Care Team Providers Care Lumber Piler Name Role Phone Karla Ortega DO Primary Care Provider [phone] Encounter Details Date Type Department Care Team (Late st Contact Info) Description 12/08/2024 Abstract [facility] [address] [place] [address] Marty Payan DO [address] [facility] [address] [place], [place] [address] Social History Tobacco Use Types Packs/Day Years [...] AM EDT Procedure Visit PATRICIO [facility] [address] [place] [address] Karla Marin PA [address] [facility] [address] [place], [facility]11 documented as of this encounter Visit Diagnoses Not on filedocumented in this encounter Care Teams Lumber Piler Relationship Specialty Start Date End Date Karla Ortega DO [address] [facility] [place] [phone] PCP - General Family Medicine 01/24/23 documented as of this encounter
--- OUTSIDE RECORDS SUMMARY | 2025-06-01 18:17 | XMS_ITS | Clinical Summary ---
Author Organization [facility] Address [address] [place] [address] Care Team Providers Care Driller Helper Name Role Phone Karla Ortega DO Primary Care Provider [phone] Allergies No known active allergies Medications medroxyPROGESTERon e (Depo-Provera) 150 MG/ML suspension prefilled syringe injection syringeIndications :Encounter for initial prescription of injectable contraceptive Inject 1 mL (150 mg) into the shoulder, thigh, or buttocks 1 (one) time for 1 dose 1 mL 2 Active Encounters Date Type Department Care Team Description 04/24/2025 Orders Only [facility] [address] [place] [phone] Lilly Lott MA 04/20/2025 1:00 PM EDT Office Visit [facility] [address] [place] [phone] Karla Marin PA Well woman exam with routine gynecological exam 04/20/2025 Clinisync Result Encounter [facility] External Department Unsolicited Karla Marin PA 04/20/2025 Bamboo flowsheet [facility] [address] [place] [phone] Karla Marin PA 04/19/2025 Travel from Last 3 Months Family History Medical History Relation Name Comments DM type 2 Father Hyperlipidemia Maternal Grandmother Hypertension Maternal Grandmother pre diabetes Mother Heart disease Paternal Grandfather Hypertension Paternal Grandfather Hypertension Paternal Grandmother Relation Name Status Comments Father Maternal Grandmother Mother Paternal Grandfather Paternal Grandmother Social History Tobacco Use Types Packs/Day Years Used Date Smoking Tobacco: Never Smokeless Tobacco: Never Tobacco Cessation:Counseling Given: Not Answered Alcohol Use Standard Drinks/Week Comments Never 0 (1 standard drink = 0.6 oz pur e alcohol) Comments No Sex and Gender Information Value Date Recorded Sex Assigned at Female 01/23/2023 12:58 PM EDT Legal Sex Female 7:05 PM EDT Gender Identity Female 01/23/2023 12:58 PM EDT Sexual Orientation Not on file Last Filed Vital Signs Vital Sign Reading Time Taken Comments Blood Pressure 120/82 04/20/2025 1:00 PM EDT Pulse - - Temperature - - Respiratory Rate - - Oxygen Saturation - - Inhaled Oxygen Concentration - - Weight 116 kg (255 lb 1.9 oz) 04/20/2025 1:00 PM EDT Height 162.6 cm (5' 4 ) 01/24/2023 11:30 AM EDT Body Mass Index 43.79 01/24/2023 11:30 AM EDT Plan of Treatment Upcoming Encounters Date Type Department Care Team (Late st Contact Info) Description 04/26/2026 10:00 AM EDT Procedure Visit [facility] Michael [facility]ARREAL [address] [place] [phone] Karla Marin PA [address] [facility] [place] [address] Procedures Procedure Name Priority Date/Time Associated Diagnosis Comments IGP,APTIMA HPV,AGE GDLN Routine 04/20/2025 12:52 PM EDT PAP SMEAR Routine 04/20/2025 12:00 AM EDT from Last 3 Months Results * IGP,APTIMA HPV,AGE GDLN (04/20/2025 12:52 PM EDT) AGE GDLN ACOG TESTING Note . [facility] Comment: TESTS RESULT FLAG UNITS REF RANGE LAB Clinician Provided Cytology Information Source.............Cervix;Endocervix No. of containers..01 ThinPrep Vial Age Miguel Yates... FLAG LEGEND: L-Low Normal,H-High Normal,LL-Alert Low,HH-Alert High <-Panic Low,>-Panic High,A-Abnormal,AA-Critical Abnormal Performed at: 01 [facility] [address] [facility] [address] Yamile Alfredo MD, IGP, RFX APTIMA HPV ASCU Note . [facility] Comment: TESTS RESULT FLAG UNITS REF RANGE LAB DIAGNOSIS: 02 NEGATIVE FOR INTRAEPITHELIAL LESION OR MALIGNANCY. Specimen adequacy: 02 Satisfactory for evaluation. Endocervical and/or squamous metaplastic cells (endocervical component) are present. Performed by: 02 Brandy De Luna Traction Power Engineer ([facility]) . 02 Note: Note 02 The Pap smear is a screening test designed to aid in the detection of premalignant and malignant conditions of the uterine cervix. It is not a diagnostic procedure and should not be used as the sole means of detecting cervical cancer. Both false-positive and false-negative reports do occur. Test Methodology: Note 02 This liquid based ThinPrep(R) pap test was screened with the use of an image guided system. . 02 The HPV DNA reflex criteria were not met with this specimen result therefore, no HPV testing was performed. FLAG LEGEND: L-Low Normal,H-High Normal,LL-Alert Low,HH-Alert High <-Panic Low,>-Panic High,A-Abnormal,AA-Critical Abnormal Performed at: [address] [address] Yamile Alfredo MD, Performed at: = - [facility] [id number] Manager Order: Yamile Alfredo MD, Phone: [phone] Performed at: [address] [id number] Manager Order: Yamile Alfredo MD, Phone: [phone] 04/20/2025 12:5 2 PM EDT 04/20/2025 3:27 PM EDT Narrative [facility] - 04/22/2025 10:09 AM EDT BRUSH-SPATULA CERVIX ENDOCERVIX Karla [facility] BLOOD ORDERABLES Final Resul t Performing Organization Address [facility]/ZIP Co de Phone Number [employer] [facility] * Pap Smear (04/20/2025 12:00 AM EDT) Swab Cervical swab / Unknown Karla [facility] CYTOLOGY ORDERABLES Final Re sult Performing Organization Address City/[facility]/ZIP Co de Phone Number EXTERNAL LAB from Last [address] [facility] Care Teams Driller Helper Relationship Specialty Start Date End Date Karla Ortega DO [address] [place] [phone] PCP - General Family Medicine 01/24/23
--- OUTSIDE RECORDS SUMMARY | 2025-06-01 18:17 | XMS_ITS | Encounter Summary ---
Author Organization [facility] Address [address] [place] [address] Care Team Providers Care Director Of Fundraising Name Role Phone Karla Ortega DO Primary Care Provider [phone] Encounter Details Date Type Department Care Team (Late st Contact Info) Description 06/06/2024 Abstract [facility] [address] [place] [address] Marty Payan DO [address] [facility] [address] [place], [place] [address] Social History Tobacco Use Types Packs/Day Years [...] AM EDT Procedure Visit PATRICIO [facility]ILLARREAL [address] [place] [address] Karla Marin PA [address] [facility] [address] [place], [facility]11 documented as of this encounter Visit Diagnoses Not on filedocumented in this encounter Care Teams Director Of Fundraising Relationship Specialty Start Date End Date Karla Ortega DO [address] [facility] [place] [phone] PCP - General Family Medicine 01/24/23 documented as of this encounter
--- OUTSIDE RECORDS SUMMARY | 2025-06-01 18:17 | XMS_ITS | Encounter Summary ---
Author Organization [facility] Address [address] [place] [address] Care Team Providers Care Sorter Laundry Articles Name Role Phone Karla Ortega DO Primary Care Provider [phone] Encounter Details Date Type Department Care Team (Late st Contact Info) Description 05/16/2024 Abstract [facility]eli [facility] [address] [facility] [place] [address] Marty Payan DO [address] [facility] [address] [place], [facility]11 Social History Tobacco Use Types Packs/Day Years [...] AM EDT Procedure Visit PATRICIO VILLARREAL [address] [facility] [place] [address] Karla Marin PA [address] [facility] [address] [place], [facility]11 documented as of this encounter Visit Diagnoses Not on filedocumented in this encounter Care Teams Sorter Laundry Articles Relationship Specialty Start Date End Date Karla Ortega DO [address] [facility] [place] [phone] PCP - General Family Medicine 01/24/23 documented as of this encounter
--- NOTE | 2025-06-01 18:49 | ED.GENADUL1 ---
HPI HPI - General Adult General Chief complaint: Extremity Injury, Lower Stated complaint: PAIN IN RIGHT FOOT/ NOW LEG IS SWELLING Time Seen by Provider: 06/01/25 18:21 Source: patient Mode of arrival: walk-in Limitations: no limitations History of Present Illness HPI narrative: Patient is a 29-year-old female presenting to the emergency department for evaluation of right foot/ankle pain. Patient states that she has been having pain in the right foot and ankle for many months now. However, over the last couple months, has gotten significantly worse. Now that she is back to work after having her kid, she has noticed increasing pain and swelling in the right lower extremity. She also noted some limited range of motion in the ankle secondary to pain. She denies any injuries to the area. She denies numbness/tingling in the extremity. She denies history of DVT/PE. She is otherwise healthy with no chronic medical conditions, though she dealt with preeclampsia during her . Related Data Home Medications ?Medication ?Instructions ?Recorded ?Confirmed No Known Home Medications 06/01/25 06/01/25 Allergies Allergy/AdvReac Type Severity Reaction Status Date / Time No Known Drug Allergies Allergy Verified 06/01/25 18:14 Opioid HPI Opioid Management Most Recent Opioid Data: Last Pain Scale 10 Today, 18:31 Ur Phencyclidine Scrn, (NEGATIVE) Negative 12/07/24, 17:00 Review of Systems ROS Status of ROS 10 or more systems reviewed and unremarkable except as noted in history and below [facility] Social History Little interest or pleasure in doing things: not at all Feeling down, depressed, or hopeless: not at all Exam Narrative Exam Narrative: CONSTITUTIONAL: Well-appearing, answering questions and following commands appropriately SKIN: Was warm and dry. EYES: Sclerae white. EARS, NOSE, THROAT: Moist oral mucosa. RESPIRATORY: Clear to auscultation bilaterally, no wheezes, crackles, or stridor, no use of accessory muscles CARDIOVASCULAR: Normal rate and regular rhythm. 2+ DP pulses bilaterally. Foot is warm and well-perfused. GASTROINTESTINAL: Abdomen is nondistended. MUSCULOSKELETAL: The right calf measures 18.5cm, left calf is 17cm. There is mild nonpitting edema on the right distal lower extremity compared to the left. She has good range of motion with plantarflexion/extension, somewhat limited ROM with supination of the R foot. No deformities. No overlying erythema or cellulitic changes. NEUROLOGIC: Patient is awake and alert. Good strength and sensation to light touch throughout the bilateral lower extremities. Ambulates with a steady gait. Constitutional Vital Signs, click to edit/add: Last Vital Signs Temp 97.6 F 06/01/25 18:10 Pulse 93 H 06/01/25 18:10 Resp 14 06/01/25 18:10 BP 154/89 H 06/01/25 18:10 Pulse Ox 100 06/01/25 18:10 O2 Del Method Room Air 06/01/25 18:10 Course Vital Signs Vital signs: Vital Signs Temperature 97.6 F 06/01/25 18:10 Pulse Rate 93 H 06/01/25 18:10 Respiratory Rate 14 06/01/25 18:10 Blood Pressure 154/89 H 06/01/25 18:10 Pulse Oximetry 100 06/01/25 18:10 Oxygen Delivery Method Room Air 06/01/25 18:10 Temperature 97.6 F 06/01/25 18:10 Pulse Rate 93 H 06/01/25 18:10 Respiratory Rate 14 06/01/25 18:10 Blood Pressure 154/89 H 06/01/25 18:10 Pulse Oximetry 100 06/01/25 18:10 Oxygen Delivery Method Room Air 06/01/25 18:10 Medical Decision Making MDM Narrative Medical decision making narrative: Patient is a 29-year-old female presenting to the emergency department with months history of distal right lower extremity pain/swelling that acutely worsened over the last 2 months. Her vital signs on arrival are significant for hypertension, otherwise were within normal limits. She is afebrile and hemodynamically stable. Examination as noted above. The foot is warm and well-perfused. The right lower extremity is neurovascularly intact. My differential diagnosis includes dependent edema, musculoskeletal etiology such as ligament strain. Thought her Wells score for DVT is 0, her right calf is asymmetrically larger than the left. Therefore, duplex ultrasound was ordered to rule out DVT. My shift is now coming to the end. At the time of signout, duplex ultrasound is pending. FINAL IMPRESSION: #Acute on chronic right lower extremity pain and edema, rule out DVT DISPOSITION: Signed out to the oncoming ED physician CONDITION: Good Discharge Plan Discharge Patient Disposition: Still a Patient
--- NOTE | 2025-06-01 19:06 | PC.NURSE ---
i walked into the room to see this patient talking to the [employer] sound tech, i introduced myself to this patient
--- NOTE | 2025-06-01 19:50 | ED.GENADUL1 ---
HPI HPI - General Adult General Chief complaint: Extremity Injury, Lower Stated complaint: PAIN IN RIGHT FOOT/ NOW LEG IS SWELLING Time Seen by Provider: 06/01/25 18:21 Source: patient Mode of arrival: walk-in Limitations: no limitations History of Present Illness HPI narrative: This 29-year-old female was signed out to me at shift change pending ultrasound of the right lower extremity. She presents for evaluation of several weeks of pain in her right leg. Patient was seen and evaluated. She complains of pain across the dorsal aspect of her right foot. There is some mild discrepancy in the size of her right lower extremity compared to her left. Duplex ultrasound is negative for DVT. The results of these findings were discussed with the patient who verbalizes understanding. I offered her an Mauro wrap or ankle stirrup splint for discomfort in the foot and ankle and she declined. She was encouraged to use NSAIDs as needed for pain and follow-up closely with her family physician. Related Data Home Medications ?Medication ?Instructions ?Recorded ?Confirmed No Known Home Medications 06/01/25 06/01/25 Allergies Allergy/AdvReac Type Severity Reaction Status Date / Time No Known Drug Allergies Allergy Verified 06/01/25 18:14 Opioid HPI Opioid Management Most Recent Opioid Data: Last Pain Scale 10 Today, 18:31 Ur Phencyclidine Scrn, (NEGATIVE) Negative 12/07/24, 17:00 [facility]SH [facility] Social History Little interest or pleasure in doing things: not at all Feeling down, depressed, or hopeless: not at all Exam Constitutional Vital Signs, click to edit/add: Last Vital Signs Temp 98.7 F 06/01/25 20:06 Pulse 84 06/01/25 20:06 Resp 18 06/01/25 20:06 BP 150/92 H 06/01/25 20:06 Pulse Ox 99 06/01/25 20:06 O2 Del Method Room Air 06/01/25 18:10 Course Vital Signs Vital signs: Vital Signs Temperature 97.6 F 06/01/25 18:10 Pulse Rate 93 H 06/01/25 18:10 Respiratory Rate 14 06/01/25 18:10 Blood Pressure 154/89 H 06/01/25 18:10 Pulse Oximetry 100 06/01/25 18:10 Oxygen Delivery Method Room Air 06/01/25 18:10 Temperature 98.7 F 06/01/25 20:06 Pulse Rate 84 06/01/25 20:06 Respiratory Rate 18 06/01/25 20:06 Blood Pressure 150/92 H 06/01/25 20:06 Pulse Oximetry 99 06/01/25 20:06 Oxygen Delivery Method Room Air 06/01/25 18:10 Discharge Plan Discharge Chief Complaint: Extremity Injury, Lower Clinical Impression: Right leg pain Patient Disposition: Home, Self-Care Time of Disposition Decision: 19:49 Condition: Good Prescriptions / Home Meds: No Action No Known Home Medications Print Language: Syrian Instructions: Leg Pain (ED) Referrals: JIMMY CLIFFORD [Primary Care Provider, Unknown] - 1 week Discharge Date/Time: 06/01/25 20:09
[2025-06-01 20:06] VITALS: BP 150/92; PULSE 84; TEMP 37.1; O2SAT 99
--- NOTE | 2025-06-01 20:10 | PC.NURSE ---
i gave this patient verbal and written discharge orders and this patient voices yes to understanding these. at time of discharge this patient voices no concerns, needs and this patient shows no signs of distress
== END 2025-06-01 20:09 | disposition home or self-care (01) ==
PROVIDERS: Emergency Provider Emergency Medicine
DX: M79.604 Pain in right leg (principal)
CPT/HCPCS: 93971; 99284